=== PATIENT | male | born 1945 | race Caucasian/White ===

== ENCOUNTER → 2017-03-22 | Outpatient (CLI) | payer MEDICARE ==
--- NOTE | 2017-03-22 12:35 | KCIC ---
MRI Lumbar Spine without contrast History: Low back pain with bilateral neurogenic claudication, bilateral hip and leg pain, leg weakness Technique: Multiplanar, multi sequential noncontrast MR imaging was performed of the lumbar spine. Contrast: None Comparison: None Findings: Lumbar vertebral body stature is mostly preserved, Schmorl's nodes greatest at L1-2 and T12-L1. There is grade 1 anterior spondylolisthesis L4-5 and to lesser degree at L5-S1, facet degenerative change at these levels. There is moderate to severe degenerative disc disease at L4-5, mild disc desiccation L2-3, L3-4, L5-S1. There is mild degenerative disc disease at L1-2. Conus terminates at L1-2. There is minimal edema associated with superior L5 Schmorl's node. There are posterior radial and annular tears L4-5. L2-L3: Spinal canal and neural foramina are adequate. L3-L4: There is very minimal disc osteophyte complex. There is a shallow protrusion in the inferior left neural foramen. There is minimal narrowing of the left neural foramen. There is a small left posterolateral annular tear. There is minimal narrowing of the right neural foramen. There is mild buckling of the ligamentum flavum. Spinal canal is adequate. L4-L5: There is fairly severe right greater than left facet degenerative change. There is mild buckling of the ligamentum flavum. There is is mild/moderate narrowing of the far right lateral recess, minimally on the left. There is partial uncovering of the posterior aspect of the disc due to spondylolisthesis with superimposed minimal disc osteophyte complex greater in the inferior right neural foramen. There is severe narrowing of the right neural foramen with contact of the exiting right L4 nerve root. There is mild narrowing of the left neural foramen. L5-S1: Spinal canal is adequate. There is very minimal disc osteophyte complex in the inferior right neural foramen. Neural foramina are overall adequate. Impression: 1. There is grade 1 anterior spondylolisthesis L4-5 and to lesser degree L5-S1, facet degenerative change at these levels. There is moderate to severe degenerative disc disease at L4-5. 2. There is [id number] right and mild left lateral recess stenosis at L4-5. 3. There is severe narrowing of the right L4-5 neural foramen with contact exiting right L4 nerve root, mild narrowing on the left at L4-5 and on the right at L3-4. Electronically signed by: Kong Haji MD (03/22/2017 12:32 PM) [email or web address]
== END | disposition home or self-care (01) ==
LOC: KCIC MRI 11:22
PROVIDERS: ATTEND Internal Medicine
DX: M48.06 Spinal stenosis, lumbar region (principal); M51.36 Other intervertebral disc degeneration, lumbar region; M43.17 Spondylolisthesis, lumbosacral region; M51.46 Schmorl's nodes, lumbar region; R53.1 Weakness
CPT/HCPCS: 72148

== ENCOUNTER → 2018-06-05 | Outpatient (CLI) | payer MEDICARE ==
--- NOTE | 2018-06-05 09:03 | KCIC ---
MRI Brain without contrast History: Essential tremors, left eye and lip drooping, hypertension Technique: Multiplanar, multisequential noncontrast MR imaging was performed of the brain. Comparison: None Findings: There is mild motion. There is no evidence of recent infarct or cytotoxic edema. Ventricular size is proportionate to sulcal spaces, mild generalized supratentorial involutional change somewhat greater of the parietal lobes.There is no significant midline shift, intraaxial mass effect, or focal abnormal extra-axial fluid collection. There is minimal T2 and FLAIR hyperintense signal abnormality of the supratentorial white matter bilaterally. There is preservation of the major intracranial flow-voids at the skull base. The mastoid air cells are aerated. The cerebellar tonsils are normal in location. There is no significant abnormality of the pineal gland or pituitary gland. There has been lens surgery bilaterally. Paranasal sinuses are overall aerated. There is preserved marrow signal of the clivus. There is some fluid associated with the right occipital condylar- C1 articulation, also associated with C1-2 lateral mass articulations left greater than right. Impression: 1. There is no evidence of recent infarct or intracranial mass effect. Minimal T2 and FLAIR hyperintense abnormality of the supratentorial parenchyma is probably due to chronic microvascular ischemic disease in a patient this age is mild supratentorial involutional change somewhat greater of the parietal lobes. 2. There is some fluid associated with the right occipital condylar that C1 articulation and also the C1-C2 lateral mass articulations left greater than right probably reactive/degenerative in etiology. Electronically signed by: Kong Haji MD (06/05/2018 9:00 AM) [email or web address]
== END | disposition home or self-care (01) ==
LOC: KCIC MRI 07:38
PROVIDERS: ATTEND Psychiatry & Neurology Neurology
DX: G25.0 Essential tremor (principal)
CPT/HCPCS: 70551

== ENCOUNTER → 2019-02-18 | Outpatient (CLI) | payer MEDICARE ==
[~2019-02-18] MED LIST: CARB1TAB2 PO; GADOTERATE 5 MMOL/10ML VIAL. IVP ONE; INSU100C SQ; LISI10TA2 PO; MELO15TA23 PO; METF10007 PO; SIMV10TA3 PO; VENL75TA PO
--- NOTE | 2019-02-18 10:39 | KCIC ---
LUMBAR SPINE WO/W CONTRAST History: Back pain. Prior surgery. Bilateral lower extremity pain left greater than right. Technique: Multiplanar, multi sequential MR imaging was performed of the lumbar spine with and without contrast. Contrast: 20 mL Dotarem Comparison: March 22, 2017 Findings: S-shaped curvature of the thoracolumbar spine. Grade 1 anterolisthesis L4 on L5 approximately 6 mm. Normal vertebral body height. No fracture. Minimal degenerative endplate edema L4-L5. No pathologic marrow replacing process. Conus terminates at the normal location. No evidence of nerve root clumping. No pathologic enhancement. L1-L2: No canal or neuroforaminal narrowing. L2-L3: No canal or neuroforaminal narrowing. L3-L4: Small posterior disc bulge. Moderate facet arthropathy. Bilateral facet joint effusions. No canal narrowing. Mild right neuroforaminal narrowing. L4-L5: Grade 1 anterolisthesis. Right hemilaminectomy. Disc uncovering. New central annular fissure. Advanced facet arthropathy. Bilateral facet joint effusions. Bilateral subarticular recess narrowing, unchanged. No canal narrowing. Mild to moderate left and severe right neural foraminal narrowing. L5-S1: Small posterior disc bulge. Advanced facet arthropathy. Bilateral facet joint effusions. No canal or neuroforaminal narrowing. Congenitally unfused posterior elements L5. Impression: 1. Interval right L4-L5 laminectomy. 2. Unchanged L4-L5 grade 1 anterolisthesis with bilateral subarticular recess narrowing and severe right neural foraminal narrowing. Electronically signed by: Benny Crabtree DO (02/18/2019 10:37 AM) [facility]
== END | disposition home or self-care (01) ==
LOC: KCIC MRI 08:33
PROVIDERS: ATTEND Internal Medicine
DX: M48.061 Spinal stenosis, lumbar region without neurogenic claudication (principal); M43.16 Spondylolisthesis, lumbar region; M46.87 Other specified inflammatory spondylopathies, lumbosacral region; M25.48 Effusion, other site; I10 Essential (primary) hypertension; E11.9 Type 2 diabetes mellitus without complications; F17.200 Nicotine dependence, unspecified, uncomplicated; Z88.2 Allergy status to sulfonamides
CPT/HCPCS: 72158; 82565; A9575

== ENCOUNTER 2019-05-08 16:13 | Inpatient (IN) | payer MEDICARE ==
[~2019-05-08] VITALS: Ht 177.8 cm; Wt 91.7 kg
[~2019-05-08 16:13] MED LIST changes: -GADOTERATE 5 MMOL/10ML VIAL. IVP ONE; +SIMV10TA15 PO; -SIMV10TA3 PO
[2019-05-08] MEDS ORDERED: IV NORMAL SALINE 1000ML BAG 1,000 ML IV SCH (16:19)
--- NOTE | 2019-05-08 16:38 | PHYS DOC ---
Adult General Chief Complaint Chief Complaint: GI PROBLEM HPI HPI Patient is a 73-year-old male who presents with acute onset of right sided mid abdominal pain with nausea and vomiting, which started about 1 hour before a rrival. Patient states that he has had numerous episodes of vomiting since onset. He rates pain to be a 10 out of 10. He states that this is absolutely the worst pain he has ever felt. Patient did recently undergo right shoulder surgery. He states that his last bowel movement was earlier today and was normal. He is not aware of any fever. Patient states that nothing is improving his symptoms. He denies any chest pain.[] (LUDA KHAN Jr. DO) Review of Systems Review of Systems Constitutional: Denies fever or chills [] Respiratory: Denies cough or shortness of breath [] Cardiovascular: No additional information not addressed in HPI [] GI: Complains of abdominal pain with nausea and vomiting. Denies diarrhea [] Musculoskeletal: Complains of right sided postoperative shoulder pain [] Integument: Denies rash or skin lesions [] Neurologic: Denies headache, focal weakness or sensory changes [] All other systems were reviewed and found to be within normal limits, except as documented in this note. (LDUA KHAN Jr. DO) Current Medications Current Medications Current Medications Medications (Trade) Dose Ordered Sig/Ventura Start Time Stop Time Status Last Admin Dose Admin Diphenhydramine HCl (Benadryl) 25 mg 1X ONCE 05/08/19 17:00 05/08/19 17:01 DC 05/08/19 16:51 25 MG Fentanyl Citrate (Fentanyl 2ml Vial) 50 mcg PRN Q15MIN PRN 05/08/19 16:30 05/08/19 21:00 05/08/19 19:27 50 MCG Hydromorphone HCl (Dilaudid) 1 mg 1X ONCE 05/08/19 18:30 05/08/19 18:31 DC 05/08/19 18:23 1 MG Info (CONTRAST GIVEN -- Rx MONITORING) 1 each PRN DAILY PRN 05/08/19 17:30 05/10/19 17:29 Iohexol (Omnipaque 350 Mg/ml) 90 ml 1X ONCE 05/08/19 17:30 05/08/19 17:31 DC 05/08/19 17:45 90 ML Metoclopramide HCl (Reglan Vial) 10 mg 1X ONCE 05/08/19 17:00 05/08/19 17:01 DC 05/08/19 16:51 10 MG Piperacillin Sod/ Tazobactam Sod 3.375 gm/Sodium Chloride 50 ml @ 100 mls/hr 1X ONCE 05/08/19 19:00 05/08/19 19:29 DC 05/08/19 19:06 100 MLS/HR Sodium Chloride 1,000 ml @ 1,000 mls/hr 1X ONCE 05/08/19 19:00 05/08/19 19:59 DC 05/08/19 19:06 1,000 MLS/HR (ELLIE COLORADO MD) Allergies Allergies Allergies Coded Allergies Type Severity Reaction Last Updated Verified sulfamethoxazole Allergy Severe Altered Mental Status 05/08/19 Yes trimethoprim Allergy Severe Altered Mental Status 05/08/19 Yes Sulfa (Sulfonamide Antibiotics) Allergy Intermediate 02/18/19 Yes ciprofloxacin Allergy Unknown rash 05/08/19 Yes codeine Allergy Unknown Rash 05/08/19 Yes (ELLIE COLORADO MD) Physical Exam Physical Exam Constitutional: Well developed, well nourished, no acute distress, non-toxic appearance. [] HENT: Normocephalic, atraumatic, bilateral external ears normal, oropharynx moist, no oral exudates, nose normal. [] Eyes: PERRLA, EOMI, conjunctiva normal, no discharge. [] Neck: Normal range of motion, no tenderness, suppler. [] Cardiovascular: Tachycardic rate with regular rhythm[] Lungs & Thorax: Bilateral breath sounds clear to auscultation [] Abdomen: Bowel sounds normal, soft, with moderate tenderness to palpation in the right mid to upper abdomen. [] Skin: Warm, dry, no erythema, no rash. [] Extremities: No tenderness, no cyanosis, no clubbing, ROM in right shoulder due to postop state. [] Neurologic: Alert and oriented X 3, no focal deficits noted. [] (LUDA KHAN Jr. DO) Current Patient Data Vital Signs Vital Signs Date Time Temp Pulse Resp B/P (MAP) Pulse Ox O2 Delivery O2 Flow Rate FiO2 05/08/19 19:00 114 114/64 (81) 92 Nasal Cannula 4.0 05/08/19 18:24 24 05/08/19 16:15 98.3 98.3 (ELLIE COLORADO MD) Lab Values Laboratory Tests Test 05/08/19 16:44 White Blood Count 6.5 x10^3/uL (4.0-11.0) Red Blood Count 4.16 x10^6/uL (4.30-5.70) L Hemoglobin 13.4 g/dL (13.0-17.5) Hematocrit 39.7 % (39.0-53.0) Mean Corpuscular Volume 96 fL (79-100) Mean Corpuscular Hemoglobin 32 pg (25-35) Mean Corpuscular Hemoglobin Concent 34 g/dL (31-37) Red Cell Distribution Width 13.8 % (11.5-14.5) Platelet Count 211 x10^3/uL (140-400) Neutrophils (%) (Auto) 85 % (31-73) H Lymphocytes (%) (Auto) 8 % (24-48) L Monocytes (%) (Auto) 6 % (0-9) Eosinophils (%) (Auto) 0 % (0-3) Basophils (%) (Auto) 1 % (0-3) Neutrophils # (Auto) 5.5 x10^3/uL (1.8-7.7) Lymphocytes # (Auto) 0.6 x10^3/uL (1.0-4.8) L Monocytes # (Auto) 0.4 x10^3/uL (0.0-1.1) Eosinophils # (Auto) 0.0 x10^3/uL (0.0-0.7) Basophils # (Auto) 0.0 x10^3/uL (0.0-0.2) D-Dimer (Zoila) 5.78 ug/mlFEU (0.00-0.50) H Sodium Level 135 mmol/L (136-145) L Potassium Level 5.0 mmol/L (3.5-5.1) Chloride Level 97 mmol/L (98-107) L Carbon Dioxide Level 25 mmol/L (21-32) Anion Gap 13 (6-14) Blood Urea Nitrogen 36 mg/dL (8-26) H Creatinine 1.5 mg/dL (0.7-1.3) H Estimated GFR (Cockcroft-Gault) 45.9 BUN/Creatinine Ratio 24 (6-20) H Glucose Level 298 mg/dL (70-99) H Calcium Level 9.4 mg/dL (8.5-10.1) Total Bilirubin 0.4 mg/dL (0.2-1.0) Aspartate Amino Transferase (AST) 26 U/L (15-37) Alanine Aminotransferase (ALT) 21 U/L (16-63) Alkaline Phosphatase 89 U/L (46-116) Total Protein 7.6 g/dL (6.4-8.2) Albumin 3.4 g/dL (3.4-5.0) Albumin/Globulin Ratio 0.8 (1.0-1.7) L Lipase 128 U/L (73-393) Laboratory Tests 05/08/19 16:44 Laboratory Tests 05/08/19 16:44 (ELLIE COLORADO MD) Lab Values Laboratory Tests Test 05/08/19 16:44 White Blood Count 6.5 x10^3/uL (4.0-11.0) Red Blood Count 4.16 x10^6/uL (4.30-5.70) L Hemoglobin 13.4 g/dL (13.0-17.5) Hematocrit 39.7 % (39.0-53.0) Mean Corpuscular Volume 96 fL (79-100) Mean Corpuscular Hemoglobin 32 pg (25-35) Mean Corpuscular Hemoglobin Concent 34 g/dL (31-37) Red Cell Distribution Width 13.8 % (11.5-14.5) Platelet Count 211 x10^3/uL (140-400) Neutrophils (%) (Auto) 85 % (31-73) H Lymphocytes (%) (Auto) 8 % (24-48) L Monocytes (%) (Auto) 6 % (0-9) Eosinophils (%) (Auto) 0 % (0-3) Basophils (%) (Auto) 1 % (0-3) Neutrophils # (Auto) 5.5 x10^3/uL (1.8-7.7) Lymphocytes # (Auto) 0.6 x10^3/uL (1.0-4.8) L Monocytes # (Auto) 0.4 x10^3/uL (0.0-1.1) Eosinophils # (Auto) 0.0 x10^3/uL (0.0-0.7) Basophils # (Auto) 0.0 x10^3/uL (0.0-0.2) D-Dimer (Zoila) 5.78 ug/mlFEU (0.00-0.50) H Sodium Level 135 mmol/L (136-145) L Potassium Level 5.0 mmol/L (3.5-5.1) Chloride Level 97 mmol/L (98-107) L Carbon Dioxide Level 25 mmol/L (21-32) Anion Gap 13 (6-14) Blood Urea Nitrogen 36 mg/dL (8-26) H Creatinine 1.5 mg/dL (0.7-1.3) H Estimated GFR (Cockcroft-Gault) 45.9 BUN/Creatinine Ratio 24 (6-20) H Glucose Level 298 mg/dL (70-99) H Calcium Level 9.4 mg/dL (8.5-10.1) Total Bilirubin 0.4 mg/dL (0.2-1.0) Aspartate Amino Transferase (AST) 26 U/L (15-37) Alanine Aminotransferase (ALT) 21 U/L (16-63) Alkaline Phosphatase 89 U/L (46-116) Total Protein 7.6 g/dL (6.4-8.2) Albumin 3.4 g/dL (3.4-5.0) Albumin/Globulin Ratio 0.8 (1.0-1.7) L Lipase 128 U/L (73-393) Laboratory Tests 05/08/19 16:44 Laboratory Tests 05/08/19 16:44 (LUDA KHAN Jr., DO) EKG EKG [] (LUDA KHAN Jr., DO) Radiology/Procedures Radiology/Procedures [] (LUDA KHAN Jr., DO) Radiology/Procedures [facility] [address] [place] [address] IMAGING REPORT Signed PATIENT: MORIAH BARRAGAN ACCOUNT: [id number] : 1945 LOCATION: ER AGE: 73 SEX: M EXAM STATUS: REG ER ORD. PHYSICIAN: LUDA KHAN Jr., DO REASON: recent surgery; poss PE vs abdominal embolic event w/ visceral infarct PROCEDURE: CT ANGIO CHEST ABD PELVIS CTA of the chest, abdomen and pelvis with contrast 05/08/2019 CLINICAL HISTORY: Chest, abdominal, and pelvic pain. Recent surgery. Possible embolic event to the abdominal viscera. TECHNIQUE: After the intravenous administration of 90 cc of Omnipaque 350 only, contiguous, 0.625 mm axial sections were obtained through the chest, abdomen and pelvis. Multiplanar 3-D MIP and volume rendered 3-D reconstructions images were obtained. One or more of the following individualized dose reduction techniques were utilized for this study: 1. Automated exposure control. 2. Adjustment of the mA and/or kV according to patient size. 3. Use of iterative reconstruction technique. FINDINGS: Scattered atherosclerotic plaque formation is seen involving the thoracic aortic arch and its branches. The thoracic aortic arch is mildly tortuous but tapers normally. No aneurysm or dissection is seen. The origins of the brachiocephalic, left common carotid and left subclavian arteries from the thoracic aortic arch are patent. The heart is borderline enlarged. No filling defect is seen within the major branches of either pulmonary artery. There is no definite evidence of pulmonary embolism. Minimal dependent subsegmental atelectasis is seen involving both lungs. No area of consolidation is seen. No pneumothorax or pleural effusion is noted. The liver parenchyma has decreased attenuation consistent with fatty infiltration. The spleen, pancreas, and left kidney are within normal limits. A 7 mm nonobstructing calculus is seen within the lower pole of the right kidney. Fullness of both adrenal glands is seen. The gallbladder is contracted. A small amount of free fluid is seen surrounding the liver. Extraluminal collections of air are seen in the janiya hepatis. Small collections of free air are seen. These findings are concerning for a perforated viscus. Air and stool are seen throughout the colon. There is no evidence of bowel obstruction. No abnormal fluid collection is seen to suggest evidence of an abscess. Images through the pelvis demonstrate the urinary bladder distended with urine. Small amount of free fluid is seen within the pelvis. Scattered diverticula are seen involving the sigmoid colon. No inflammatory changes are seen in the adjacent fat. CTA images of the abdominal aorta demonstrate moderate atheromatous/atherosclerotic plaque formation involving the abdominal aorta and its branches. The abdominal aorta tapers normally. A solitary right renal artery is seen which is patent. Two left renal arteries are seen which are patent. The origins of the celiac trunk, superior mesenteric artery and inferior mesenteric artery are patent. Moderate atherosclerotic plaque formation are seen involving the common iliac arteries and their branches. No hemodynamically significant stenosis or area of occlusion is seen. Very mild S-shaped curvature of the thoracolumbar spine is seen. Degenerative changes are seen involving the thoracic and lumbar spine along with both hips. The patient is post right shoulder joint replacement. IMPRESSION: 1. Extraluminal collections of air are seen within the right upper quadrant of the abdomen. A small amount of free air is seen within the upper abdomen. Small amount of ascites is seen within the abdomen and pelvis. These findings are concerning for a bowel perforation. 2. No acute abnormality is seen involving the thoracic or abdominal aorta and their branches. These findings were discussed with Dr. [place] at 1841 hours. FOR INTERNAL CODING PURPOSES RESULT CODE: (C) Electronically signed by: Marv Clark MD (05/08/2019 6:44 PM) [facility] DICTATED and SIGNED BY: MARV CLARK MD DATE: 05/08/191843 (ELLIE COLORADO MD) Course & Med Decision Making Course & Med Decision Making Pertinent Labs and Imaging studies reviewed. (See chart for details) [] (LUDA KHAN Jr., DO) Course & Med Decision Making Patient care transferred to mo by Dr. Khan at 1800. Patient had tachycardia, hypoxia and generalized tenderness of abdomen. CT chest and abdomen and pelvis showed perforated gut with few air fluid in the abdomen. That he wanted on-call surgeon was consulted at 1845 and plans to take patient to OR.Patient requiring admission for further evaluation and treatment. Discussed with Dr. Xie who is in agreement with admission. Discussed findings and plan with patient and family, who acknowledge understanding and agreement. (ELLIE COLORADO MD) Dragon Disclaimer Dragon Disclaimer This electronic medical record was generated, in whole or in part, using a voice recognition dictation system. (LUDA KHAN Jr., DO) Departure Departure Impression: Primary Impression: Perforated intestine, nontraumatic Disposition: 09 ADMITTED INPATIENT (at 1850) Admitting Physician: [facility] (Dr. Xie accepted admission at 1849) (ELLIE COLORADO MD) Condition: GUARDED Referrals: PULS,ILANA L MD (PCP) Critical Care Time Critical care time was 50 minutes exclusive of procedures. (ELLIE COLORADO MD) LUDA KHAN Jr., DO May 08, 2019 16:38 ELLIE COLORADO MD May 08, 2019 19:04
[2019-05-08] MEDS: fentaNYL PF VIAL 100 MCG/2 ML VIAL IV PRN ×4 (16:53→19:27)
[2019-05-08 16:54] LABS: BASO % 1 % (0-3); EOS % 0 % (0-3); HEMATOCRIT 39.7 % (39.0-53.0); HEMOGLOBIN 13.4 g/dL (13.0-17.5); LYMPH # 0.6 x10^3/uL (1.0-4.8); LYMPH % 8 % (24-48); MEAN CORPUSCULAR HEMOGLOBIN 32 pg (25-35); MEAN CORPUSCULAR HGB CONC 34 g/dL (31-37); MEAN CORPUSCULAR VOLUME 96 fL (79-100); MONO # 0.4 x10^3/uL (0.0-1.1); MONO % 6 % (0-9); NEUT # 5.5 x10^3/uL (1.8-7.7); NEUT % 85 % (31-73); PLATELET COUNT 211 x10^3/uL (140-400); RED BLOOD COUNT 4.16 x10^6/uL (4.30-5.70); RED CELL DISTRIBUTION WIDTH 13.8 % (11.5-14.5); WHITE BLOOD COUNT 6.5 x10^3/uL (4.0-11.0)
[2019-05-08] MEDS ORDERED: diphenhydrAMINE 50 MG/ML VIAL IVP ONE (17:00)
[2019-05-08] MEDS ORDERED: METOCLOPRAMIDE HCL 10 MG/2 ML VIAL. IVP ONE (17:00)
[2019-05-08 17:03] LABS: CALCIUM 9.4 mg/dL (8.5-10.1); CREATININE 1.5 mg/dL (0.7-1.3); GFR 45.9
[2019-05-08 17:10] LABS: ALBUMIN 3.4 g/dL (3.4-5.0); ALBUMIN/GLOBULIN RATIO 0.8 (1.0-1.7); TOTAL BILIRUBIN 0.4 mg/dL (0.2-1.0); TOTAL PROTEIN 7.6 g/dL (6.4-8.2)
[2019-05-08] MEDS ORDERED: CONTRAST GIVEN. MC PRN (17:30)
[2019-05-08] MEDS ORDERED: IOHEXOL 350 MG/ML 100 ML VIAL. IV ONE (17:30)
[2019-05-08] MEDS ORDERED: HYDROmorphone 2 MG/ML VIAL IV ONE (18:30)
--- NOTE | 2019-05-08 18:47 | RAD ---
CTA of the chest, abdomen and pelvis with contrast 05/08/2019 CLINICAL HISTORY: Chest, abdominal, and pelvic pain. Recent surgery. Possible embolic event to the abdominal viscera. TECHNIQUE: After the intravenous administration of 90 cc of Omnipaque 350 only, contiguous, 0.625 mm axial sections were obtained through the chest, abdomen and pelvis. Multiplanar 3-D MIP and volume rendered 3-D reconstructions images were obtained. One or more of the following individualized dose reduction techniques were utilized for this study: 1. Automated exposure control. 2. Adjustment of the mA and/or kV according to patient size. 3. Use of iterative reconstruction technique. FINDINGS: Scattered atherosclerotic plaque formation is seen involving the thoracic aortic arch and its branches. The thoracic aortic arch is mildly tortuous but tapers normally. No aneurysm or dissection is seen. The origins of the brachiocephalic, left common carotid and left subclavian arteries from the thoracic aortic arch are patent. The heart is borderline enlarged. No filling defect is seen within the major branches of either pulmonary artery. There is no definite evidence of pulmonary embolism. Minimal dependent subsegmental atelectasis is seen involving both lungs. No area of consolidation is seen. No pneumothorax or pleural effusion is noted. The liver parenchyma has decreased attenuation consistent with fatty infiltration. The spleen, pancreas, and left kidney are within normal limits. A 7 mm nonobstructing calculus is seen within the lower pole of the right kidney. Fullness of both adrenal glands is seen. The gallbladder is contracted. A small amount of free fluid is seen surrounding the liver. Extraluminal collections of air are seen in the janiya hepatis. Small collections of free air are seen. These findings are concerning for a perforated viscus. Air and stool are seen throughout the colon. There is no evidence of bowel obstruction. No abnormal fluid collection is seen to suggest evidence of an abscess. Images through the pelvis demonstrate the urinary bladder distended with urine. Small amount of free fluid is seen within the pelvis. Scattered diverticula are seen involving the sigmoid colon. No inflammatory changes are seen in the adjacent fat. CTA images of the abdominal aorta demonstrate moderate atheromatous/atherosclerotic plaque formation involving the abdominal aorta and its branches. The abdominal aorta tapers normally. A solitary right renal artery is seen which is patent. Two left renal arteries are seen which are patent. The origins of the celiac trunk, superior mesenteric artery and inferior mesenteric artery are patent. Moderate atherosclerotic plaque formation are seen involving the common iliac arteries and their branches. No hemodynamically significant stenosis or area of occlusion is seen. Very mild S-shaped curvature of the thoracolumbar spine is seen. Degenerative changes are seen involving the thoracic and lumbar spine along with both hips. The patient is post right shoulder joint replacement. IMPRESSION: 1. Extraluminal collections of air are seen within the right upper quadrant of the abdomen. A small amount of free air is seen within the upper abdomen. Small amount of ascites is seen within the abdomen and pelvis. These findings are concerning for a bowel perforation. 2. No acute abnormality is seen involving the thoracic or abdominal aorta and their branches. These findings were discussed with Dr. Beaver at 1841 hours. FOR INTERNAL CODING PURPOSES RESULT CODE: (C) Electronically signed by: Marv Clark MD (05/08/2019 6:44 PM) [facility]
[2019-05-08] MEDS ORDERED: IV NORMAL SALINE 1000ML BAG 1,000 ML IV ONE (19:00)
[2019-05-08] MEDS ORDERED: PIPERACILLIN/TAZOBACTAM 3.375 GM in IV NORMAL SALINE 50ML 50 ML IV ONE (19:00)
[2019-05-08] MEDS ORDERED: fentaNYL PF VIAL 100 MCG/2 ML VIAL ONE (19:34)
[2019-05-08] MEDS ORDERED: PROPOFOL 20 ML IV ONE (19:34)
[2019-05-08] MEDS ORDERED: SUCCINYLCHOLINE 200 MG/10 ML VIAL. ONE (19:34)
[2019-05-08] MEDS ORDERED: ONDANSETRON PF 4 MG/2 ML VIAL. ONE (19:34)
[2019-05-08] MEDS ORDERED: LIDOCAINE 2% PF 5 ML VIAL. ONE (19:34)
[2019-05-08] MEDS ORDERED: ROCURONIUM 50 MG/5 ML VIAL. ONE (19:34)
[2019-05-08] MEDS ORDERED: DEXAMETHASONE SOD PHOS 4 MG/ML VIAL ONE (19:34)
[2019-05-08] MEDS ORDERED: INSULIN LISPRO 100 UNIT/ML 3ML VIAL for OP,RR ONLY. SQ PRN (19:45)
[2019-05-08] MEDS ORDERED: ONDANSETRON PF 4 MG/2 ML VIAL. IV PRN (19:45)
[2019-05-08] MEDS ORDERED: fentaNYL PF VIAL 100 MCG/2 ML VIAL IV PRN ×2 (19:45)
[2019-05-08] MEDS ORDERED: PROCHLORPERAZINE 10 MG/2 ML VIAL. IV PRN (19:45)
--- NOTE | 2019-05-08 19:53 | PDOC2 ---
CONSULT Date of Consult Date of Consult DATE: 05/08/19 TIME: 19:44 Reason for Consult Reason for Consult: Abdominal pain and abnormal CT scan Referring Physician Referring Physician: Anne-Marie Identification/Chief Complaint Chief Complaint Abdominal pain nausea vomiting Source Source: Chart review, Patient History of Present Illness Reason for Visit: 73-year-old male came to the emergency department with complaints of severe abdominal pain nausea vomiting started approximately 2 hours ago. Of note he had a right shoulder surgery done 2 days ago at [facility] and has been on nonsteroidal anti-inflammatories for quite some time. He had a normal bowel movement earlier today denies any blood in his emesis. CT scan shows free air in the right upper quadrant of his abdomen with some perihepatic ascites no evidence of small bowel obstruction no evidence of colitis diverticulitis. Past Medical History Cardiovascular: HTN Pulmonary: No pertinent hx GI: Gastritis, Peptic Ulcer disease Heme/Onc: No pertinent hx Hepatobiliary: No pertinent hx Psych: No pertinent hx Musculoskeletal: Other (shoulder pain) Rheumatologic: No pertinent hx Infectious disease: No pertinent hx ENT: No pertinent hx Renal/: Chronic renal insuff Endocrine: Diabetes Dermatology: No pertinent hx Past Surgical History Past Surgical History: Other (right shoulder surgery postop 2 days) Family History Family History: No Significant Social History Quit ALCOHOL: rare Drugs: None Lives: with Family Current Problem List Problem List Problems Medical Problems: (1) Perforated intestine, nontraumatic Status: Acute Current Medications Current Medications Current Medications Fentanyl Citrate (Fentanyl 2ml Vial) 50 mcg PRN Q15MIN PRN IV PAIN GREATER THAN 3/10 Last administered on 05/08/19at 19:27; Start 05/08/19 at 16:30; Stop 05/09/19 at 16:29 Sodium Chloride 1,000 ml @ 250 mls/hr Q4H IV Last administered on 05/08/19at 16:54; Start 05/08/19 at 16:19; Stop 05/08/19 at 20:18 Metoclopramide HCl (Reglan Vial) 10 mg 1X ONCE IVP Last administered on 05/08/19at 16:51; Start 05/08/19 at 17:00; Stop 05/08/19 at 17:01; Status DC Diphenhydramine HCl (Benadryl) 25 mg 1X ONCE IVP Last administered on 05/08/19at 16:51; Start 05/08/19 at 17:00; Stop 05/08/19 at 17:01; Status DC Iohexol (Omnipaque 350 Mg/ml) 90 ml 1X ONCE IV Last administered on 05/08/19at 17:45; Start 05/08/19 at 17:30; Stop 05/08/19 at 17:31; Status DC Info (CONTRAST GIVEN -- Rx MONITORING) 1 each PRN DAILY PRN MC SEE COMMENTS; Start 05/08/19 at 17:30; Stop 05/10/19 at 17:29 Hydromorphone HCl (Dilaudid) 1 mg 1X ONCE IV Last administered on 05/08/19at 18:23; Start 05/08/19 at 18:30; Stop 05/08/19 at 18:31; Status DC Piperacillin Sod/ Tazobactam Sod 3.375 gm/Sodium Chloride 50 ml @ 100 mls/hr 1X ONCE IV Last administered on 05/08/19at 19:06; Start 05/08/19 at 19:00; Stop 05/08/19 at 19:29; Status DC Sodium Chloride 1,000 ml @ 1,000 mls/hr 1X ONCE IV Last administered on 05/08/19at 19:06; Start 05/08/19 at 19:00; Stop 05/08/19 at 19:59 Ondansetron HCl (Zofran) 4 mg STK-MED ONCE .ROUTE ; Start 05/08/19 at 19:34; Stop 05/08/19 at 19:34; Status DC Propofol 20 ml @ As Directed STK-MED ONCE IV ; Start 05/08/19 at 19:34; Stop 05/08/19 at 19:34; Status DC Lidocaine HCl (Lidocaine Pf 2% Vial) 5 ml STK-MED ONCE .ROUTE ; Start 05/08/19 at 19:34; Stop 05/08/19 at 19:34; Status DC Dexamethasone Sodium Phosphate (Decadron) 4 mg STK-MED ONCE .ROUTE ; Start 05/08/19 at 19:34; Stop 05/08/19 at 19:34; Status DC Fentanyl Citrate (Fentanyl 2ml Vial) 100 mcg STK-MED ONCE .ROUTE ; Start 05/08/19 at 19:34; Stop 05/08/19 at 19:34; Status DC Succinylcholine Chloride (Anectine) 200 mg STK-MED ONCE .ROUTE ; Start 05/08/19 at 19:34; Stop 05/08/19 at 19:34; Status DC Rocuronium [place] (Zemuron) 50 mg STK-MED ONCE .ROUTE ; Start 05/08/19 at 19:34; Stop 05/08/19 at 19:34; Status DC Active Scripts Active Reported Venlafaxine Hcl 75 Mg Tablet Unknown Dose PO DAILY Simvastatin 10 Mg Tablet 10 Mg PO DAILY Metformin Hcl 1,000 Mg Tablet 1,000 Mg PO BIDWMEALS Meloxicam 15 Mg Tablet Unknown Dose PO DAILY Lisinopril 10 Mg Tablet Unknown Dose PO DAILY Humalog (Insulin Lispro) 100 Unit/1 Ml Cartridge 100 Unit SQ Sinemet 25-100 Mg Tablet (Carbidopa/Levodopa) 1 Each Tablet 1 Tab PO TID Allergies Allergies: Coded Allergies: sulfamethoxazole (Verified Allergy, Severe, Altered Mental Status , 05/08/19) trimethoprim (Verified Allergy, Severe, Altered Mental Status , 05/08/19) Sulfa (Sulfonamide Antibiotics) (Verified Allergy, Intermediate, 02/18/19) ciprofloxacin (Verified Allergy, Unknown, rash, 05/08/19) codeine (Verified Allergy, Unknown, Rash, 05/08/19) ROS Gastrointestinal: Yes Nausea, Yes Vomiting, Yes Abdominal Pain Musculoskeletal: Yes Joint Swelling, Yes Muscle Pain Physical Exam General: Alert, Oriented X3, Cooperative, moderate distress HEENT: Atraumatic, PERRLA, EOMI Lungs: Clear to auscultation, Normal air movement Heart: Regular rate, No murmurs Abdomen: Soft, Other (moderately distended tender to palpation epigastrium) Extremities: No edema, Other (ecchymosis right shoulder) Skin: No significant lesion Neuro: Normal speech Psych/Mental Status: Mental status NL Vitals VITALS Vital Signs Date Time Temp Pulse Resp B/P (MAP) Pulse Ox O2 Delivery O2 Flow Rate FiO2 05/08/19 19:27 92 Room Air 4.0 05/08/19 18:24 128 24 134/70 (91) 05/08/19 16:15 98.3 98.3 Labs Labs Laboratory Tests Test 05/08/19 16:44 White Blood Count 6.5 x10^3/uL (4.0-11.0) Red Blood Count 4.16 x10^6/uL (4.30-5.70) Hemoglobin 13.4 g/dL (13.0-17.5) Hematocrit 39.7 % (39.0-53.0) Mean Corpuscular Volume 96 fL (79-100) Mean Corpuscular Hemoglobin 32 pg (25-35) Mean Corpuscular Hemoglobin Concent 34 g/dL (31-37) Red Cell Distribution Width 13.8 % (11.5-14.5) Platelet Count 211 x10^3/uL (140-400) Neutrophils (%) (Auto) 85 % (31-73) Lymphocytes (%) (Auto) 8 % (24-48) Monocytes (%) (Auto) 6 % (0-9) Eosinophils (%) (Auto) 0 % (0-3) Basophils (%) (Auto) 1 % (0-3) Neutrophils # (Auto) 5.5 x10^3/uL (1.8-7.7) Lymphocytes # (Auto) 0.6 x10^3/uL (1.0-4.8) Monocytes # (Auto) 0.4 x10^3/uL (0.0-1.1) Eosinophils # (Auto) 0.0 x10^3/uL (0.0-0.7) Basophils # (Auto) 0.0 x10^3/uL (0.0-0.2) D-Dimer (Zoila) 5.78 ug/mlFEU (0.00-0.50) Sodium Level 135 mmol/L (136-145) Potassium Level 5.0 mmol/L (3.5-5.1) Chloride Level 97 mmol/L (98-107) Carbon Dioxide Level 25 mmol/L (21-32) Anion Gap 13 (6-14) Blood Urea Nitrogen 36 mg/dL (8-26) Creatinine 1.5 mg/dL (0.7-1.3) Estimated GFR (Cockcroft-Gault) 45.9 BUN/Creatinine Ratio 24 (6-20) Glucose Level 298 mg/dL (70-99) Calcium Level 9.4 mg/dL (8.5-10.1) Total Bilirubin 0.4 mg/dL (0.2-1.0) Aspartate Amino Transf (AST/SGOT) 26 U/L (15-37) Alanine Aminotransferase (ALT/SGPT) 21 U/L (16-63) Alkaline Phosphatase 89 U/L (46-116) Total Protein 7.6 g/dL (6.4-8.2) Albumin 3.4 g/dL (3.4-5.0) Albumin/Globulin Ratio 0.8 (1.0-1.7) Lipase 128 U/L (73-393) Laboratory Tests Test 05/08/19 16:44 White Blood Count 6.5 x10^3/uL (4.0-11.0) Red Blood Count 4.16 x10^6/uL (4.30-5.70) Hemoglobin 13.4 g/dL (13.0-17.5) Hematocrit 39.7 % (39.0-53.0) Mean Corpuscular Volume 96 fL (79-100) Mean Corpuscular Hemoglobin 32 pg (25-35) Mean Corpuscular Hemoglobin Concent 34 g/dL (31-37) Red Cell Distribution Width 13.8 % (11.5-14.5) Platelet Count 211 x10^3/uL (140-400) Neutrophils (%) (Auto) 85 % (31-73) Lymphocytes (%) (Auto) 8 % (24-48) Monocytes (%) (Auto) 6 % (0-9) Eosinophils (%) (Auto) 0 % (0-3) Basophils (%) (Auto) 1 % (0-3) Neutrophils # (Auto) 5.5 x10^3/uL (1.8-7.7) Lymphocytes # (Auto) 0.6 x10^3/uL (1.0-4.8) Monocytes # (Auto) 0.4 x10^3/uL (0.0-1.1) Eosinophils # (Auto) 0.0 x10^3/uL (0.0-0.7) Basophils # (Auto) 0.0 x10^3/uL (0.0-0.2) D-Dimer (Zoila) 5.78 ug/mlFEU (0.00-0.50) Sodium Level 135 mmol/L (136-145) Potassium Level 5.0 mmol/L (3.5-5.1) Chloride Level 97 mmol/L (98-107) Carbon Dioxide Level 25 mmol/L (21-32) Anion Gap 13 (6-14) Blood Urea Nitrogen 36 mg/dL (8-26) Creatinine 1.5 mg/dL (0.7-1.3) Estimated GFR (Cockcroft-Gault) 45.9 BUN/Creatinine Ratio 24 (6-20) Glucose Level 298 mg/dL (70-99) Calcium Level 9.4 mg/dL (8.5-10.1) Total Bilirubin 0.4 mg/dL (0.2-1.0) Aspartate Amino Transf (AST/SGOT) 26 U/L (15-37) Alanine Aminotransferase (ALT/SGPT) 21 U/L (16-63) Alkaline Phosphatase 89 U/L (46-116) Total Protein 7.6 g/dL (6.4-8.2) Albumin 3.4 g/dL (3.4-5.0) Albumin/Globulin Ratio 0.8 (1.0-1.7) Lipase 128 U/L (73-393) Images Images CT scan as in the history of present illness Assessment/Plan Assessment/Plan Abdominal pain with free air on CT scan suggestive of perforated viscus most li felipa gastric or duodenal ulcer perforation with his history of NSAID use Plan for diagnostic laparoscopy and repair of perforated viscus Diabetes renal insufficiency JAZMINE URIBE MD May 08, 2019 19:53
[2019-05-08] MEDS ORDERED: IV RINGERS,LACTATED 1000ML 1,000 ML IV SCH (20:00)
[2019-05-08] MEDS ORDERED: BUPIVACAINE-EPI 0.25%-1:200000 MPF 30 ML VIAL. INJ ONE (20:00)
[2019-05-08] MEDS ORDERED: KETAMINE HCL IN NACL, ISO-OSM 50 MG/5 ML SYRINGE ONE (20:12)
[2019-05-08] MEDS ORDERED: PHENYLEPHRINE in 0.9% NACL PF 1 MG/10 ML SYRINGE. IV ONE (20:33)
[2019-05-08] MEDS ORDERED: ePHEDrine PF IN SALINE 50 MG/10 ML SYRINGE. IV ONE (20:36)
[2019-05-08] MEDS ORDERED: ALBUMIN HUMAN 5% 500 ML IV ONE (20:55)
[2019-05-08] MEDS ORDERED: NEOSTIGMINE METHYLSULFATE 5 MG/5 ML SYRINGE. ONE (21:27)
[2019-05-08] MEDS ORDERED: GLYCOPYRROLATE 1 MG/5 ML VIAL. ONE (21:27)
[2019-05-08] MEDS ORDERED: EPINEPHrine 1 MG/ML VIAL ONE (21:39)
[2019-05-08] MEDS ORDERED: BUPIVACAINE MPF 0.5% 30 ML VIAL. ONE (21:39)
[2019-05-08] MEDS ORDERED: SEVOFLURANE 61 TO 120 MINUTES. IH ONE (21:44)
--- NOTE | 2019-05-08 21:50 | PDOC4 ---
Operative Note Operative Note Date: 05/08/2019 Preoperative diagnosis: Perforated viscus with free air peritonitis Postoperative diagnosis: Perforated duodenal ulcer Procedure: Diagnostic laparoscopy with open laparotomy and closure of duodenal ulcer and Dawood patch Surgeon: Vick Specimen: Biopsies of duodenal ulcer Dictation: Patient is a 73-year-old male was mated to the hospital through the emergency department with abdominal pain nausea vomiting and a CT scan showing f ree air and free fluid in the right upper quadrant concerning for a perforated viscus. Procedure of diagnostic laparoscopy laparotomy possible small bowel resection was explained to the patient and his in detail risks benefits were also discussed including bleeding infection wound healing issues possibly necessitating further operations. Alternatives to this procedure also discussed with the patient and his who seemed to understand and gave both verbal and written consent to have the procedure performed per patient was taken to the operating room placed in supine position general anesthesia was initiated once patient was sleep and intubated Patrick catheter was placed and NG tube was also placed his abdomen was then prepped and draped usual sterile fashion using ChloraPrep and area just below the umbilicus was injected with quarter percent Marcaine with epinephrine incision was made with a 11 blade scalpel and a varies needle was placed within the abdomen creating pneumoperitoneum at this point a 5 OmegaPort was placed and a 5 moment camera was placed within the abdomen which was inspected was quite a bit of bilious type fluid in the right upper quadrant with some phlegmon in the epigastric area a 5 mm port was then placed in the left mid abdomen and one in the epigastric area the area was inspected and appeared to be a perforation of the duodenum although it was difficult to assess but there was free fluid coming from this area. At this point elected to do open laparotomy with incision was made in the epigastrium this carried down through the subcutaneous tissue using electrocautery right hemostasis down to the fascia fashion was opened with electrocautery. Bookwalter retractor was then placed allowing access to the epigastrium right upper quadrant was noticed that there was a perforated duodenal ulcer just past the pylorus. Biopsy of the edge of the ulcer was taken. The ulcer was then closed with a running 3-0 PDS. Additionally oversewn with 3-0 Vicryl interrupted sutures. There was then covered with Ti sseel and a tongue of omentum was brought up and laid over the repair creating a Dawood patch. The abdomen was then irrigated with copious metastases normal saline and suctioned dry a 19 Frisian MACKENZIE drain was placed through a separate incision in the right upper quadrant this was laid subhepatic out to the right gutter. The fascia was then closed with a running oh looped PDS and the skin was reapproximated with 40 septic or Monocryl Mastisol Steri-Strips and island dressing were applied. Patient was awakened and extubated in the operating room taken to recovery in stable condition all sponge instrument needle counts listed as correct estimated blood loss 30 mL JAZMINE URIBE MD May 08, 2019 21:50
[2019-05-08] MEDS ORDERED: ONDANSETRON PF 4 MG/2 ML VIAL. IVP PRN (22:00)
[2019-05-08 22:45] VITALS: BP 96/43
[2019-05-08 23:00] VITALS: BP 82/50
[2019-05-08] MEDS ORDERED: IV DEXTROSE 5% 250 ML BAG. IV PRN (23:00)
[2019-05-08] MEDS ORDERED: DEXTROSE 50% 25 GM / 50ML DISP.SYRIN. IV PRN (23:00)
[2019-05-08] MEDS ORDERED: INSULIN REGULAR VIAL 150 UNIT in 0.9 % SODIUM CHLORIDE 150ML 150 ML IV PRN ×2 (23:00)
--- NOTE | 2019-05-08 23:00 | NUR ---
Received patient from OR to room 111 with MD ALVA, and RN at bedside at 2245. PACU nurse, Miryam NIEVES, at bedside to recover patient after surgery.
[2019-05-08] MEDS: FLUCONAZOLE 200MG/100ML PREMIX 100 ML IV SCH (23:05)
[2019-05-08 23:15] VITALS: BP 82/56
[2019-05-08 23:30] VITALS: BP 76/50
[2019-05-08 23:45] VITALS: BP 78/48
[2019-05-08] MEDS: IV NORMAL SALINE 1000ML BAG 1,000 ML IV SCH (23:45)
[2019-05-09] VITALS (26 sets, daily range): BP systolic 86–151; BP diastolic 48–93
[2019-05-09] MEDS: PIPERACILLIN/TAZOBACTAM 3.375 GM in IV NORMAL SALINE 50ML 50 ML IV SCH ×4 (00:25→18:27)
[2019-05-09] MEDS ORDERED: ALBUMIN HUMAN 5% 500 ML IV ONE (00:30)
[2019-05-09] MEDS: IV NORMAL SALINE 1000ML BAG 1,000 ML IV SCH ×6 (06:00→21:26)
[2019-05-09 06:02] LABS: BASO % 0 % (0-3); EOS % 0 % (0-3); HEMATOCRIT 31.1 % (39.0-53.0); HEMOGLOBIN 10.3 g/dL (13.0-17.5); LYMPH # 0.3 x10^3/uL (1.0-4.8); LYMPH % 12 % (24-48); MEAN CORPUSCULAR HEMOGLOBIN 32 pg (25-35); MEAN CORPUSCULAR HGB CONC 33 g/dL (31-37); MEAN CORPUSCULAR VOLUME 96 fL (79-100); MONO # 0.3 x10^3/uL (0.0-1.1); MONO % 14 % (0-9); NEUT # 1.9 x10^3/uL (1.8-7.7); NEUT % 74 % (31-73); PLATELET COUNT 138 x10^3/uL (140-400); RED BLOOD COUNT 3.22 x10^6/uL (4.30-5.70); RED CELL DISTRIBUTION WIDTH 13.6 % (11.5-14.5); WHITE BLOOD COUNT 2.5 x10^3/uL (4.0-11.0)
[2019-05-09 06:21] LABS: CALCIUM 8.1 mg/dL (8.5-10.1); CREATININE 2.3 mg/dL (0.7-1.3); POTASSIUM 5.2 mmol/L (3.5-5.1)
--- NOTE | 2019-05-09 06:30 | NUR ---
Rested well overnight. Denies pain each time asked. Creat up this am to 2.3. ANESTHESIOLOGY CRNA informed of change. She will talk to . MACKENZIE with moderate output. UO low, but remains 30ml/hr. Remains on 50% VM with O2 sat 92-93%. Coughing well. VS remain stable. No pressors started overnight.
--- NOTE | 2019-05-09 07:52 | EKG ---
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
--- NOTE | 2019-05-09 09:08 | PDOC1 ---
History and Physical Date of Admission Date of Admission DATE: 05/09/19 TIME: 09:07 Identification/Chief Complaint Chief Complaint 73-year-old male who presents with acute onset of right sided mid abdominal pain with nausea and vomiting, which started about 1 hour before arrival. Patient states that he has had numerous episodes of vomiting since onset.//has been on NSAID's for quite some time. Past Medical History Past Medical History Past Medical History Cardiovascular: HTN Pulmonary: No pertinent hx GI: Gastritis, Peptic Ulcer disease Heme/Onc: No pertinent hx Hepatobiliary: No pertinent hx Psych: No pertinent hx Musculoskeletal: Other (shoulder pain) Rheumatologic: No pertinent hx Infectious disease: No pertinent hx ENT: No pertinent hx Renal/: Chronic renal insuff Endocrine: Diabetes Dermatology: No pertinent hx Past Surgical History Past Surgical History: Other (right shoulder surgery postop 2 days) Family History Family History: No Significant Social History Quit ALCOHOL: rare Drugs: None Lives: with Family Cardiovascular: HTN Pulmonary: No pertinent hx GI: Gastritis, Peptic Ulcer disease Heme/Onc: No pertinent hx Hepatobiliary: No pertinent hx Psych: No pertinent hx Musculoskeletal: Other (shoulder pain) Rheumatologic: No pertinent hx Infectious disease: No pertinent hx ENT: No pertinent hx Renal/: Chronic renal insuff Endocrine: Diabetes Dermatology: No pertinent hx Past Surgical History Past Surgical History: Other (right shoulder surgery postop 2 days) Family History Family History: No Significant Social History Smoke: <1 pack per day ALCOHOL: rare Drugs: None Current Problem List Problem List Problems Medical Problems: (1) Perforated intestine, nontraumatic Status: Acute Current Medications Current Medications Current Medications Fentanyl Citrate (Fentanyl 2ml Vial) 50 mcg PRN Q15MIN PRN IV PAIN GREATER THAN 3/10 Last administered on 05/08/19at 19:27; Start 05/08/19 at 16:30; Stop 05/08/19 at 21:00; Status DC Sodium Chloride 1,000 ml @ 250 mls/hr Q4H IV Last administered on 05/08/19at 16:54; Start 05/08/19 at 16:19; Stop 05/08/19 at 20:18; Status DC Metoclopramide HCl (Reglan Vial) 10 mg 1X ONCE IVP Last administered on 05/08/19at 16:51; Start 05/08/19 at 17:00; Stop 05/08/19 at 17:01; Status DC Diphenhydramine HCl (Benadryl) 25 mg 1X ONCE IVP Last administered on 05/08/19at 16:51; Start 05/08/19 at 17:00; Stop 05/08/19 at 17:01; Status DC Iohexol (Omnipaque 350 Mg/ml) 90 ml 1X ONCE IV Last administered on 05/08/19at 17:45; Start 05/08/19 at 17:30; Stop 05/08/19 at 17:31; Status DC Info (CONTRAST GIVEN -- Rx MONITORING) 1 each PRN DAILY PRN MC SEE COMMENTS; Start 05/08/19 at 17:30; Stop 05/10/19 at 17:29 Hydromorphone HCl (Dilaudid) 1 mg 1X ONCE IV Last administered on 05/08/19at 18:23; Start 05/08/19 at 18:30; Stop 05/08/19 at 18:31; Status DC Piperacillin Sod/ Tazobactam Sod 3.375 gm/Sodium Chloride 50 ml @ 100 mls/hr 1X ONCE IV Last administered on 05/08/19at 19:06; Start 05/08/19 at 19:00; Stop 05/08/19 at 19:29; Status DC Sodium Chloride 1,000 ml @ 1,000 mls/hr 1X ONCE IV Last administered on 05/08/19at 19:06; Start 05/08/19 at 19:00; Stop 05/08/19 at 19:59; Status DC Ondansetron HCl (Zofran) 4 mg STK-MED ONCE .ROUTE ; Start 05/08/19 at 19:34; Stop 05/08/19 at 19:34; Status DC Propofol 20 ml @ As Directed STK-MED ONCE IV ; Start 05/08/19 at 19:34; Stop 05/08/19 at 19:34; Status DC Lidocaine HCl (Lidocaine Pf 2% Vial) 5 ml STK-MED ONCE .ROUTE ; Start 05/08/19 at 19:34; Stop 05/08/19 at 19:34; Status DC Dexamethasone Sodium Phosphate (Decadron) 4 mg STK-MED ONCE .ROUTE ; Start 05/08/19 at 19:34; Stop 05/08/19 at 19:34; Status DC Fentanyl Citrate (Fentanyl 2ml Vial) 100 mcg STK-MED ONCE .ROUTE ; Start 05/08/19 at 19:34; Stop 05/08/19 at 19:34; Status DC Succinylcholine Chloride (Anectine) 200 mg STK-MED ONCE .ROUTE ; Start 05/08/19 at 19:34; Stop 05/08/19 at 19:34; Status DC Rocuronium [place] (Zemuron) 50 mg STK-MED ONCE .ROUTE ; Start 05/08/19 at 19:34; Stop 05/08/19 at 19:34; Status DC Ondansetron HCl (Zofran) 4 mg PRN Q6HRS PRN IV NAUSEA/VOMITING; Start 05/08/19 at 19:45; Stop 05/08/19 at 23:59; Status DC Fentanyl Citrate (Fentanyl 2ml Vial) 25 mcg PRN Q5MIN PRN IV MILD PAIN 1-3; Start 05/08/19 at 19:45; Stop 05/08/19 at 23:59; Status DC Fentanyl Citrate (Fentanyl 2ml Vial) 50 mcg PRN Q5MIN PRN IV MODERATE TO SEVERE PAIN; Start 05/08/19 at 19:45; Stop 05/08/19 at 23:59; Status DC Ringer's Solution 1,000 ml @ 30 mls/hr Q24H IV Last administered on 05/08/19at 23:06; Start 05/08/19 at 20:00; Stop 05/09/19 at 01:00; Status DC Prochlorperazine Edisylate (Compazine) 5 mg PACU PRN PRN IV NAUSEA, MRX1; Start 05/08/19 at 19:45; Stop 05/08/19 at 23:59; Status DC Insulin Human Lispro (HumaLOG VIAL for OP,RR ONLY) 0-10 units PRN Q1HR PRN SQ PER PROTOCOL; Start 05/08/19 at 19:45; Stop 05/08/19 at 23:59; Status DC Bupivacaine HCl/ Epinephrine Bitart (Sensorcaine-Epi 0.25%-1:012153 Mpf) 30 ml 1X ONCE INJ Last administered on 05/08/19at 20:32; Start 05/08/19 at 20:00; Stop 05/08/19 at 20:01; Status DC Ketamine HCl (Ketamine) 50 mg STK-MED ONCE .ROUTE ; Start 05/08/19 at 20:12; Stop 05/08/19 at 20:12; Status DC Phenylephrine HCl (PHENYLEPHRINE in 0.9% NACL PF) 1 mg STK-MED ONCE IV ; Start 05/08/19 at 20:33; Stop 05/08/19 at 20:33; Status DC Ephedrine Sulfate (ePHEDrine PF IN SALINE SYRINGE) 50 mg STK-MED ONCE IV ; Start 05/08/19 at 20:36; Stop 05/08/19 at 20:36; Status DC Albumin Human 500 ml @ As Directed STK-MED ONCE IV ; Start 05/08/19 at 20:55; Stop 05/08/19 at 20:55; Status DC Glycopyrrolate (Robinul) 1 mg STK-MED ONCE .ROUTE ; Start 05/08/19 at 21:27; Stop 05/08/19 at 21:27; Status DC Neostigmine Methylsulfate (Neostigmine Methylsulfate) 5 mg STK-MED ONCE .ROUTE ; Start 05/08/19 at 21:27; Stop 05/08/19 at 21:27; Status DC Bupivacaine HCl (Sensorcaine Mpf 0.5%) 30 ml STK-MED ONCE .ROUTE ; Start 05/08/19 at 21:39; Stop 05/08/19 at 21:39; Status DC Epinephrine HCl (Adrenalin) 1 mg STK-MED ONCE .ROUTE ; Start 05/08/19 at 21:39; Stop 05/08/19 at 21:39; Status DC Sevoflurane (Ultane) 60 ml STK-MED ONCE IH ; Start 05/08/19 at 21:44; Stop 05/08/19 at 21:44; Status DC Sodium Chloride 1,000 ml @ 125 mls/hr Q8H IV Last administered on 05/08/19at 23:45; Start 05/08/19 at 22:00 Ondansetron HCl (Zofran) 4 mg PRN Q6HRS PRN IVP NAUSEA/VOMITING 1ST CHOICE; Start 05/08/19 at 22:00 Fluconazole/ Sodium Chloride 100 ml @ 100 mls/hr Q24H IV Last administered on 05/08/19at 23:05; Start 05/08/19 at 22:00 Hydromorphone HCl (Dilaudid) 1 mg PRN Q4HRS PRN IV SEVERE PAIN 7-10; Start 05/08/19 at 22:00 Piperacillin Sod/ Tazobactam Sod 3.375 gm/Sodium Chloride 50 ml @ 100 mls/hr Q6HRS IV Last administered on 05/09/19at 06:08; Start 05/09/19 at 00:00 Pantoprazole Sodium (PROTONIX VIAL for IV PUSH) 40 mg DAILY IVP ; Start 05/09/19 at 09:00 Insulin Human Regular 150 unit/ Sodium Chloride 151.5 ml @ 0 mls/hr CONT PRN IV SEE I/O RECORD; Start 05/08/19 at 23:00; Status UNV Insulin Human Regular 150 unit/ Sodium Chloride 151.5 ml @ 0 mls/hr CONT PRN IV SEE I/O RECORD Last administered on 05/08/19at 23:03; Start 05/08/19 at 23:00 Dextrose (Dextrose 50%-Water Syringe) 12.5 gm PRN Q15MIN PRN IV LOW BLOOD SUGAR; Start 05/08/19 at 23:00 Dextrose 250 ml PRN Q15MIN PRN IV LOW BLOOD SUGAR; Start 05/08/19 at 23:00 Albumin Human 500 ml @ 250 mls/hr 1X ONCE IV Last administered on 05/09/19at 00:10; Start 05/09/19 at 00:30; Stop 05/09/19 at 02:29; Status DC Norepinephrine Bitartrate 250 ml @ 20.156 mls/ hr CONT PRN IV SEE I/O RECORD; Start 05/09/19 at 00:00 Dextrose/Sodium Chloride 1,000 ml @ 250 mls/hr Q4H IV ; Start 05/09/19 at 08:45 Active Scripts Active Reported Venlafaxine Hcl 75 Mg Tablet Unknown Dose PO DAILY Simvastatin 10 Mg Tablet 10 Mg PO DAILY Metformin Hcl 1,000 Mg Tablet 1,000 Mg PO BIDWMEALS Meloxicam 15 Mg Tablet Unknown Dose PO DAILY Lisinopril 10 Mg Tablet Unknown Dose PO DAILY Humalog (Insulin Lispro) 100 Unit/1 Ml Cartridge 100 Unit SQ Sinemet 25-100 Mg Tablet (Carbidopa/Levodopa) 1 Each Tablet 1 Tab PO TID Allergies Allergies: Coded Allergies: sulfamethoxazole (Verified Allergy, Severe, Altered Mental Status , 05/08/19) trimethoprim (Verified Allergy, Severe, Altered Mental Status , 05/08/19) Sulfa (Sulfonamide Antibiotics) (Verified Allergy, Intermediate, 05/08/19) ciprofloxacin (Verified Allergy, Intermediate, rash, 05/08/19) codeine (Verified Allergy, Intermediate, Rash, 05/08/19) ROS Review of System in er , Constitutional: Denies fever or chills [] Respiratory: Denies cough or shortness of breath [] Cardiovascular: No additional information not addressed in HPI [] GI: Complains of abdominal pain with nausea and vomiting. Denies diarrhea [] Musculoskeletal: Complains of right sided postoperative shoulder pain [] Integument: Denies rash or skin lesions [] Neurologic: Denies headache, focal weakness or sensory changes [] 14 pt systems were reviewed and found to be within normal limits, except as documented General: YES: Fatigue Hematological and Lymphatic: No: Bleeding Problems, Blood Clots, Blood Transfusions, Brusing, Night Sweats, Pallor, Swollen Lymph Nodes, Other Gastrointestinal: Yes Abdominal Pain Physical Exam Physical Exam HENT: Normocephalic, atraumatic, bilateral external ears normal, oropharynx moist, no oral exudates, nose normal. [] Eyes: PERRLA, EOMI, conjunctiva normal, no discharge. [] Neck: Normal range of motion, no tenderness, suppler. [] Cardiovascular: Tachycardic rate with regular rhythm[] Lungs & Thorax: Bilateral breath sounds clear to auscultation [] General: Alert, Oriented X3, Cooperative, mild distress HEENT: EOMI Heart: no thrills Breasts: Not examined Abdomen: Other ( MACKENZIE drain intact with bilious blood-tinged drainage)) Rectal Exam: not examined PELVIC: Examination not indicated Extremities: No cyanosis Neuro: Cranial nerves 3-12 NL Vitals Vitals Vital Signs Date Time Temp Pulse Resp B/P (MAP) Pulse Ox O2 Delivery O2 Flow Rate FiO2 05/09/19 06:00 93 18 90/53 (65) 93 Venturi Mask 05/09/19 04:00 15.0 05/09/19 04:00 100.0 100.0 Labs Labs Laboratory Tests Test 05/08/19 16:44 05/08/19 20:43 05/08/19 22:48 05/08/19 23:53 White Blood Count 6.5 x10^3/uL (4.0-11.0) Red Blood Count 4.16 x10^6/uL (4.30-5.70) Hemoglobin 13.4 g/dL (13.0-17.5) Hematocrit 39.7 % (39.0-53.0) Mean Corpuscular Volume 96 fL (79-100) Mean Corpuscular Hemoglobin 32 pg (25-35) Mean Corpuscular Hemoglobin Concent 34 g/dL (31-37) Red Cell Distribution Width 13.8 % (11.5-14.5) Platelet Count 211 x10^3/uL (140-400) Neutrophils (%) (Auto) 85 % (31-73) Lymphocytes (%) (Auto) 8 % (24-48) Monocytes (%) (Auto) 6 % (0-9) Eosinophils (%) (Auto) 0 % (0-3) Basophils (%) (Auto) 1 % (0-3) Neutrophils # (Auto) 5.5 x10^3/uL (1.8-7.7) Lymphocytes # (Auto) 0.6 x10^3/uL (1.0-4.8) Monocytes # (Auto) 0.4 x10^3/uL (0.0-1.1) Eosinophils # (Auto) 0.0 x10^3/uL (0.0-0.7) Basophils # (Auto) 0.0 x10^3/uL (0.0-0.2) D-Dimer (Zoila) 5.78 ug/mlFEU (0.00-0.50) Sodium Level 135 mmol/L (136-145) Potassium Level 5.0 mmol/L (3.5-5.1) Chloride Level 97 mmol/L (98-107) Carbon Dioxide Level 25 mmol/L (21-32) Anion Gap 13 (6-14) Blood Urea Nitrogen 36 mg/dL (8-26) Creatinine 1.5 mg/dL (0.7-1.3) Estimated GFR (Cockcroft-Gault) 45.9 BUN/Creatinine Ratio 24 (6-20) Glucose Level 298 mg/dL (70-99) Calcium Level 9.4 mg/dL (8.5-10.1) Total Bilirubin 0.4 mg/dL (0.2-1.0) Aspartate Amino Transf (AST/SGOT) 26 U/L (15-37) Alanine Aminotransferase (ALT/SGPT) 21 U/L (16-63) Alkaline Phosphatase 89 U/L (46-116) Total Protein 7.6 g/dL (6.4-8.2) Albumin 3.4 g/dL (3.4-5.0) Albumin/Globulin Ratio 0.8 (1.0-1.7) Lipase 128 U/L (73-393) Glucose (Fingerstick) 295 mg/dL (70-99) 312 mg/dL (70-99) 274 mg/dL (70-99) Test 05/09/19 00:52 05/09/19 01:53 05/09/19 02:55 05/09/19 03:53 Glucose (Fingerstick) 254 mg/dL (70-99) 226 mg/dL (70-99) 167 mg/dL (70-99) 148 mg/dL (70-99) Test 05/09/19 04:54 05/09/19 05:35 05/09/19 05:57 05/09/19 06:59 Glucose (Fingerstick) 123 mg/dL (70-99) 119 mg/dL (70-99) 118 mg/dL (70-99) White Blood Count 2.5 x10^3/uL (4.0-11.0) Red Blood Count 3.22 x10^6/uL (4.30-5.70) Hemoglobin 10.3 g/dL (13.0-17.5) Hematocrit 31.1 % (39.0-53.0) Mean Corpuscular Volume 96 fL (79-100) Mean Corpuscular Hemoglobin 32 pg (25-35) Mean Corpuscular Hemoglobin Concent 33 g/dL (31-37) Red Cell Distribution Width 13.6 % (11.5-14.5) Platelet Count 138 x10^3/uL (140-400) Neutrophils (%) (Auto) 74 % (31-73) Lymphocytes (%) (Auto) 12 % (24-48) Monocytes (%) (Auto) 14 % (0-9) Eosinophils (%) (Auto) 0 % (0-3) Basophils (%) (Auto) 0 % (0-3) Neutrophils # (Auto) 1.9 x10^3/uL (1.8-7.7) Lymphocytes # (Auto) 0.3 x10^3/uL (1.0-4.8) Monocytes # (Auto) 0.3 x10^3/uL (0.0-1.1) Eosinophils # (Auto) 0.0 x10^3/uL (0.0-0.7) Basophils # (Auto) 0.0 x10^3/uL (0.0-0.2) Sodium Level 141 mmol/L (136-145) Potassium Level 5.2 mmol/L (3.5-5.1) Chloride Level 106 mmol/L (98-107) Carbon Dioxide Level 25 mmol/L (21-32) Anion Gap 10 (6-14) Blood Urea Nitrogen 44 mg/dL (8-26) Creatinine 2.3 mg/dL (0.7-1.3) Estimated GFR (Cockcroft-Gault) 28.0 Glucose Level 129 mg/dL (70-99) Calcium Level 8.1 mg/dL (8.5-10.1) Laboratory Tests Test 05/08/19 16:44 05/08/19 20:43 05/08/19 22:48 05/08/19 23:53 White Blood Count 6.5 x10^3/uL (4.0-11.0) Red Blood Count 4.16 x10^6/uL (4.30-5.70) Hemoglobin 13.4 g/dL (13.0-17.5) Hematocrit 39.7 % (39.0-53.0) Mean Corpuscular Volume 96 fL (79-100) Mean Corpuscular Hemoglobin 32 pg (25-35) Mean Corpuscular Hemoglobin Concent 34 g/dL (31-37) Red Cell Distribution Width 13.8 % (11.5-14.5) Platelet Count 211 x10^3/uL (140-400) Neutrophils (%) (Auto) 85 % (31-73) Lymphocytes (%) (Auto) 8 % (24-48) Monocytes (%) (Auto) 6 % (0-9) Eosinophils (%) (Auto) 0 % (0-3) Basophils (%) (Auto) 1 % (0-3) Neutrophils # (Auto) 5.5 x10^3/uL (1.8-7.7) Lymphocytes # (Auto) 0.6 x10^3/uL (1.0-4.8) Monocytes # (Auto) 0.4 x10^3/uL (0.0-1.1) Eosinophils # (Auto) 0.0 x10^3/uL (0.0-0.7) Basophils # (Auto) 0.0 x10^3/uL (0.0-0.2) D-Dimer (Zoila) 5.78 ug/mlFEU (0.00-0.50) Sodium Level 135 mmol/L (136-145) Potassium Level 5.0 mmol/L (3.5-5.1) Chloride Level 97 mmol/L (98-107) Carbon Dioxide Level 25 mmol/L (21-32) Anion Gap 13 (6-14) Blood Urea Nitrogen 36 mg/dL (8-26) Creatinine 1.5 mg/dL (0.7-1.3) Estimated GFR (Cockcroft-Gault) 45.9 BUN/Creatinine Ratio 24 (6-20) Glucose Level 298 mg/dL (70-99) Calcium Level 9.4 mg/dL (8.5-10.1) Total Bilirubin 0.4 mg/dL (0.2-1.0) Aspartate Amino Transf (AST/SGOT) 26 U/L (15-37) Alanine Aminotransferase (ALT/SGPT) 21 U/L (16-63) Alkaline Phosphatase 89 U/L (46-116) Total Protein 7.6 g/dL (6.4-8.2) Albumin 3.4 g/dL (3.4-5.0) Albumin/Globulin Ratio 0.8 (1.0-1.7) Lipase 128 U/L (73-393) Glucose (Fingerstick) 295 mg/dL (70-99) 312 mg/dL (70-99) 274 mg/dL (70-99) Test 05/09/19 00:52 05/09/19 01:53 05/09/19 02:55 05/09/19 03:53 Glucose (Fingerstick) 254 mg/dL (70-99) 226 mg/dL (70-99) 167 mg/dL (70-99) 148 mg/dL (70-99) Test 05/09/19 04:54 05/09/19 05:35 05/09/19 05:57 05/09/19 06:59 Glucose (Fingerstick) 123 mg/dL (70-99) 119 mg/dL (70-99) 118 mg/dL (70-99) White Blood Count 2.5 x10^3/uL (4.0-11.0) Red Blood Count 3.22 x10^6/uL (4.30-5.70) Hemoglobin 10.3 g/dL (13.0-17.5) Hematocrit 31.1 % (39.0-53.0) Mean Corpuscular Volume 96 fL (79-100) Mean Corpuscular Hemoglobin 32 pg (25-35) Mean Corpuscular Hemoglobin Concent 33 g/dL (31-37) Red Cell Distribution Width 13.6 % (11.5-14.5) Platelet Count 138 x10^3/uL (140-400) Neutrophils (%) (Auto) 74 % (31-73) Lymphocytes (%) (Auto) 12 % (24-48) Monocytes (%) (Auto) 14 % (0-9) Eosinophils (%) (Auto) 0 % (0-3) Basophils (%) (Auto) 0 % (0-3) Neutrophils # (Auto) 1.9 x10^3/uL (1.8-7.7) Lymphocytes # (Auto) 0.3 x10^3/uL (1.0-4.8) Monocytes # (Auto) 0.3 x10^3/uL (0.0-1.1) Eosinophils # (Auto) 0.0 x10^3/uL (0.0-0.7) Basophils # (Auto) 0.0 x10^3/uL (0.0-0.2) Sodium Level 141 mmol/L (136-145) Potassium Level 5.2 mmol/L (3.5-5.1) Chloride Level 106 mmol/L (98-107) Carbon Dioxide Level 25 mmol/L (21-32) Anion Gap 10 (6-14) Blood Urea Nitrogen 44 mg/dL (8-26) Creatinine 2.3 mg/dL (0.7-1.3) Estimated GFR (Cockcroft-Gault) 28.0 Glucose Level 129 mg/dL (70-99) Calcium Level 8.1 mg/dL (8.5-10.1) Images Images CTA of the chest, abdomen and pelvis with contrast 05/08/2019 CLINICAL HISTORY: Chest, abdominal, and pelvic pain. Recent surgery. Possible embolic event to the abdominal viscera. TECHNIQUE: After the intravenous administration of 90 cc of Omnipaque 350 only, contiguous, 0.625 mm axial sections were obtained through the chest, abdomen and pelvis. Multiplanar 3-D MIP and volume rendered 3-D reconstructions images were obtained. One or more of the following individualized dose reduction techniques were utilized for this study: 1. Automated exposure control. 2. Adjustment of the mA and/or kV according to patient size. 3. Use of iterative reconstruction technique. FINDINGS: Scattered atherosclerotic plaque formation is seen involving the thoracic aortic arch and its branches. The thoracic aortic arch is mildly tortuous but tapers normally. No aneurysm or dissection is seen. The origins of the brachiocephalic, left common carotid and left subclavian arteries from the thoracic aortic arch are patent. The heart is borderline enlarged. No filling defect is seen within the major branches of either pulmonary artery. There is no definite evidence of pulmonary embolism. Minimal dependent subsegmental atelectasis is seen involving both lungs. No area of consolidation is seen. No pneumothorax or pleural effusion is noted. The liver parenchyma has decreased attenuation consistent with fatty infiltration. The spleen, pancreas, and left kidney are within normal limits. A 7 mm nonobstructing calculus is seen within the lower pole of the right kidney. Fullness of both adrenal glands is seen. The gallbladder is contracted. A small amount of free fluid is seen surrounding the liver. Extraluminal collections of air are seen in the janiya hepatis. Small collections of free air are seen. These findings are concerning for a perforated viscus. Air and stool are seen throughout the colon. There is no evidence of bowel obstruction. No abnormal fluid collection is seen to suggest evidence of an abscess. Images through the pelvis demonstrate the urinary bladder distended with urine. Small amount of free fluid is seen within the pelvis. Scattered diverticula are seen involving the sigmoid colon. No inflammatory changes are seen in the adjacent fat. CTA images of the abdominal aorta demonstrate moderate atheromatous/atherosclerotic plaque formation involving the abdominal aorta and its branches. The abdominal aorta tapers normally. A solitary right renal artery is seen which is patent. Two left renal arteries are seen which are patent. The origins of the celiac trunk, superior mesenteric artery and inferior mesenteric artery are patent. Moderate atherosclerotic plaque formation are seen involving the common iliac arteries and their branches. No hemodynamically significant stenosis or area of occlusion is seen. Very mild S-shaped curvature of the thoracolumbar spine is seen. Degenerative changes are seen involving the thoracic and lumbar spine along with both hips. The patient is post right shoulder joint replacement. IMPRESSION: 1. Extraluminal collections of air are seen within the right upper quadrant of the abdomen. A small amount of free air is seen within the upper abdomen. Small amount of ascites is seen within the abdomen and pelvis. These findings are concerning for a bowel perforation. 2. No acute abnormality is seen involving the thoracic or abdominal aorta and their branches. These findings were discussed with Dr. Beaver at 1841 hours. FOR INTERNAL CODING PURPOSES RESULT CODE: (C) Electronically signed by: Marv Ruff MD (05/08/2019 6:44 PM) [facility] DICTATED and SIGNED BY: MARV RUFF MD DATE: 05/08/191843 VTE Prophylaxis Ordered VTE Prophylaxis Devices: Contraindicated VTE Pharmacological Prophylaxi: Contraindicated Assessment/Plan Assessment/Plan impression RESPIRATORY FAILURE SEVERE SEPSIS severe protein-caloric malnutrition Perforated viscus with free air peritonitis //Perforated duodenal ulcer Extraluminal collections of air are seen within the right upper quadrant of the abdomen. A small amount of free air is seen within the upper abdomen. Small amount of ascites is seen within the abdomen and pelvis. /// bowel perforation.// PERITONITIS plan ADMIT ICU Consult gen surgery nephrology consult PULM CONSULT ID CONSULT sepsis protocol IV ANTIBIOTICS, iv zosyn BLOOD CULTURE VENTURI MASK SUPPORT BRONCH per pulm Diagnostic laparoscopy with open laparotomy and closure of duodenal ulcer and Dawood patch 10-24 36 MIN CC TIME JAZMINE COLLINS MD May 09, 2019 09:08
--- NOTE | 2019-05-09 09:12 | RAD ---
PORTABLE CHEST 1V History: Postop. Comparison: CT May 08, 2019. Findings: Enteric tube with tip projecting over the proximal stomach. No consolidation or pleural effusion. Normal heart size. Right shoulder arthroplasty. Low lung volumes. Advanced left glenohumeral DJD. Impression: 1. No acute cardiopulmonary process. 2. Enteric tube with tip projecting over the proximal stomach. Electronically signed by: Benny Crabtree DO (05/09/2019 9:09 AM) [id number]
--- NOTE | 2019-05-09 09:44 | PDOC ---
SURGICAL PROGRESS NOTE Subjective Patient feeling better today a lot less pain than when he came into the emergency department. Says he is hungry would like to eat. Vital Signs Vital Signs Date Time Temp Pulse Resp B/P (MAP) Pulse Ox O2 Delivery O2 Flow Rate FiO2 05/09/19 06:00 93 18 90/53 (65) 93 Venturi Mask 05/09/19 04:00 15.0 05/09/19 04:00 100.0 100.0 I&O Intake and Output 05/09/19 06:59 Intake Total 4514 ml Output Total 745 ml Balance 3769 ml Intake IV Total 4514 ml Output Urine Total 460 ml Gastric Drainage Total 25 ml Drainage Total 230 ml Estimated Blood Loss 30 ml PATIENT HAS A FENTON: Yes General: Alert, Oriented X3, Cooperative, mild distress Lungs: Other (decreased breath sounds bilaterally at the bases) Abdomen: Soft, Other (incisional tenderness MACKENZIE drain intact with bilious blood- tinged drainage) Labs Laboratory Tests Test 05/08/19 16:44 05/08/19 20:43 05/08/19 22:48 05/08/19 23:53 White Blood Count 6.5 x10^3/uL (4.0-11.0) Red Blood Count 4.16 x10^6/uL (4.30-5.70) Hemoglobin 13.4 g/dL (13.0-17.5) Hematocrit 39.7 % (39.0-53.0) Mean Corpuscular Volume 96 fL (79-100) Mean Corpuscular Hemoglobin 32 pg (25-35) Mean Corpuscular Hemoglobin Concent 34 g/dL (31-37) Red Cell Distribution Width 13.8 % (11.5-14.5) Platelet Count 211 x10^3/uL (140-400) Neutrophils (%) (Auto) 85 % (31-73) Lymphocytes (%) (Auto) 8 % (24-48) Monocytes (%) (Auto) 6 % (0-9) Eosinophils (%) (Auto) 0 % (0-3) Basophils (%) (Auto) 1 % (0-3) Neutrophils # (Auto) 5.5 x10^3/uL (1.8-7.7) Lymphocytes # (Auto) 0.6 x10^3/uL (1.0-4.8) Monocytes # (Auto) 0.4 x10^3/uL (0.0-1.1) Eosinophils # (Auto) 0.0 x10^3/uL (0.0-0.7) Basophils # (Auto) 0.0 x10^3/uL (0.0-0.2) D-Dimer (Zoila) 5.78 ug/mlFEU (0.00-0.50) Sodium Level 135 mmol/L (136-145) Potassium Level 5.0 mmol/L (3.5-5.1) Chloride Level 97 mmol/L (98-107) Carbon Dioxide Level 25 mmol/L (21-32) Anion Gap 13 (6-14) Blood Urea Nitrogen 36 mg/dL (8-26) Creatinine 1.5 mg/dL (0.7-1.3) Estimated GFR (Cockcroft-Gault) 45.9 BUN/Creatinine Ratio 24 (6-20) Glucose Level 298 mg/dL (70-99) Calcium Level 9.4 mg/dL (8.5-10.1) Total Bilirubin 0.4 mg/dL (0.2-1.0) Aspartate Amino Transf (AST/SGOT) 26 U/L (15-37) Alanine Aminotransferase (ALT/SGPT) 21 U/L (16-63) Alkaline Phosphatase 89 U/L (46-116) Total Protein 7.6 g/dL (6.4-8.2) Albumin 3.4 g/dL (3.4-5.0) Albumin/Globulin Ratio 0.8 (1.0-1.7) Lipase 128 U/L (73-393) Glucose (Fingerstick) 295 mg/dL (70-99) 312 mg/dL (70-99) 274 mg/dL (70-99) Test 05/09/19 00:52 05/09/19 01:53 05/09/19 02:55 05/09/19 03:53 Glucose (Fingerstick) 254 mg/dL (70-99) 226 mg/dL (70-99) 167 mg/dL (70-99) 148 mg/dL (70-99) Test 05/09/19 04:54 05/09/19 05:35 05/09/19 05:57 05/09/19 06:59 Glucose (Fingerstick) 123 mg/dL (70-99) 119 mg/dL (70-99) 118 mg/dL (70-99) White Blood Count 2.5 x10^3/uL (4.0-11.0) Red Blood Count 3.22 x10^6/uL (4.30-5.70) Hemoglobin 10.3 g/dL (13.0-17.5) Hematocrit 31.1 % (39.0-53.0) Mean Corpuscular Volume 96 fL (79-100) Mean Corpuscular Hemoglobin 32 pg (25-35) Mean Corpuscular Hemoglobin Concent 33 g/dL (31-37) Red Cell Distribution Width 13.6 % (11.5-14.5) Platelet Count 138 x10^3/uL (140-400) Neutrophils (%) (Auto) 74 % (31-73) Lymphocytes (%) (Auto) 12 % (24-48) Monocytes (%) (Auto) 14 % (0-9) Eosinophils (%) (Auto) 0 % (0-3) Basophils (%) (Auto) 0 % (0-3) Neutrophils # (Auto) 1.9 x10^3/uL (1.8-7.7) Lymphocytes # (Auto) 0.3 x10^3/uL (1.0-4.8) Monocytes # (Auto) 0.3 x10^3/uL (0.0-1.1) Eosinophils # (Auto) 0.0 x10^3/uL (0.0-0.7) Basophils # (Auto) 0.0 x10^3/uL (0.0-0.2) Sodium Level 141 mmol/L (136-145) Potassium Level 5.2 mmol/L (3.5-5.1) Chloride Level 106 mmol/L (98-107) Carbon Dioxide Level 25 mmol/L (21-32) Anion Gap 10 (6-14) Blood Urea Nitrogen 44 mg/dL (8-26) Creatinine 2.3 mg/dL (0.7-1.3) Estimated GFR (Cockcroft-Gault) 28.0 Glucose Level 129 mg/dL (70-99) Calcium Level 8.1 mg/dL (8.5-10.1) Laboratory Tests Test 05/08/19 16:44 05/08/19 20:43 05/08/19 22:48 05/08/19 23:53 White Blood Count 6.5 x10^3/uL (4.0-11.0) Red Blood Count 4.16 x10^6/uL (4.30-5.70) Hemoglobin 13.4 g/dL (13.0-17.5) Hematocrit 39.7 % (39.0-53.0) Mean Corpuscular Volume 96 fL (79-100) Mean Corpuscular Hemoglobin 32 pg (25-35) Mean Corpuscular Hemoglobin Concent 34 g/dL (31-37) Red Cell Distribution Width 13.8 % (11.5-14.5) Platelet Count 211 x10^3/uL (140-400) Neutrophils (%) (Auto) 85 % (31-73) Lymphocytes (%) (Auto) 8 % (24-48) Monocytes (%) (Auto) 6 % (0-9) Eosinophils (%) (Auto) 0 % (0-3) Basophils (%) (Auto) 1 % (0-3) Neutrophils # (Auto) 5.5 x10^3/uL (1.8-7.7) Lymphocytes # (Auto) 0.6 x10^3/uL (1.0-4.8) Monocytes # (Auto) 0.4 x10^3/uL (0.0-1.1) Eosinophils # (Auto) 0.0 x10^3/uL (0.0-0.7) Basophils # (Auto) 0.0 x10^3/uL (0.0-0.2) D-Dimer (Zoila) 5.78 ug/mlFEU (0.00-0.50) Sodium Level 135 mmol/L (136-145) Potassium Level 5.0 mmol/L (3.5-5.1) Chloride Level 97 mmol/L (98-107) Carbon Dioxide Level 25 mmol/L (21-32) Anion Gap 13 (6-14) Blood Urea Nitrogen 36 mg/dL (8-26) Creatinine 1.5 mg/dL (0.7-1.3) Estimated GFR (Cockcroft-Gault) 45.9 BUN/Creatinine Ratio 24 (6-20) Glucose Level 298 mg/dL (70-99) Calcium Level 9.4 mg/dL (8.5-10.1) Total Bilirubin 0.4 mg/dL (0.2-1.0) Aspartate Amino Transf (AST/SGOT) 26 U/L (15-37) Alanine Aminotransferase (ALT/SGPT) 21 U/L (16-63) Alkaline Phosphatase 89 U/L (46-116) Total Protein 7.6 g/dL (6.4-8.2) Albumin 3.4 g/dL (3.4-5.0) Albumin/Globulin Ratio 0.8 (1.0-1.7) Lipase 128 U/L (73-393) Glucose (Fingerstick) 295 mg/dL (70-99) 312 mg/dL (70-99) 274 mg/dL (70-99) Test 05/09/19 00:52 05/09/19 01:53 05/09/19 02:55 05/09/19 03:53 Glucose (Fingerstick) 254 mg/dL (70-99) 226 mg/dL (70-99) 167 mg/dL (70-99) 148 mg/dL (70-99) Test 05/09/19 04:54 05/09/19 05:35 05/09/19 05:57 05/09/19 06:59 Glucose (Fingerstick) 123 mg/dL (70-99) 119 mg/dL (70-99) 118 mg/dL (70-99) White Blood Count 2.5 x10^3/uL (4.0-11.0) Red Blood Count 3.22 x10^6/uL (4.30-5.70) Hemoglobin 10.3 g/dL (13.0-17.5) Hematocrit 31.1 % (39.0-53.0) Mean Corpuscular Volume 96 fL (79-100) Mean Corpuscular Hemoglobin 32 pg (25-35) Mean Corpuscular Hemoglobin Concent 33 g/dL (31-37) Red Cell Distribution Width 13.6 % (11.5-14.5) Platelet Count 138 x10^3/uL (140-400) Neutrophils (%) (Auto) 74 % (31-73) Lymphocytes (%) (Auto) 12 % (24-48) Monocytes (%) (Auto) 14 % (0-9) Eosinophils (%) (Auto) 0 % (0-3) Basophils (%) (Auto) 0 % (0-3) Neutrophils # (Auto) 1.9 x10^3/uL (1.8-7.7) Lymphocytes # (Auto) 0.3 x10^3/uL (1.0-4.8) Monocytes # (Auto) 0.3 x10^3/uL (0.0-1.1) Eosinophils # (Auto) 0.0 x10^3/uL (0.0-0.7) Basophils # (Auto) 0.0 x10^3/uL (0.0-0.2) Sodium Level 141 mmol/L (136-145) Potassium Level 5.2 mmol/L (3.5-5.1) Chloride Level 106 mmol/L (98-107) Carbon Dioxide Level 25 mmol/L (21-32) Anion Gap 10 (6-14) Blood Urea Nitrogen 44 mg/dL (8-26) Creatinine 2.3 mg/dL (0.7-1.3) Estimated GFR (Cockcroft-Gault) 28.0 Glucose Level 129 mg/dL (70-99) Calcium Level 8.1 mg/dL (8.5-10.1) Problem List Problems Medical Problems: (1) Perforated intestine, nontraumatic Status: Acute Assessment/Plan Status post laparotomy with repair of duodenal ulcer Dawood patch Patient currently neutropenic on antibiotic coverage as well as antifungal Hyperkalemic with creatinine 2.3 borderline urinary output Consult pulmonary and nephrology Continue supportive care JAZMINE URIBE MD May 09, 2019 09:44
--- NOTE | 2019-05-09 10:03 | PDOC2 ---
CONSULT Date of Consult Date of Consult DATE: 05/09/19 TIME: 09:23 Reason for Consult Reason for Consult: GREGG Source Source: Chart review History of Present Illness Reason for Visit: Pt is a 73-year-old male came to the emergency department with complaints of severe abdominal pain nausea vomiting started approximately 2 hours prior. He had a normal bowel movement, denies any blood in his emesis. CT scan shows free air in the right upper quadrant of his abdomen with some perihepatic ascites no evidence of small bowel obstruction no evidence of colitis diverticulitis. He had a right shoulder surgery done 2 days ago and has been on NSAID's for quite some time. Past Medical History Cardiovascular: HTN Pulmonary: No pertinent hx GI: Gastritis, Peptic Ulcer disease Heme/Onc: No pertinent hx Hepatobiliary: No pertinent hx Psych: No pertinent hx Musculoskeletal: Other (shoulder pain) Rheumatologic: No pertinent hx Infectious disease: No pertinent hx ENT: No pertinent hx Renal/: Chronic renal insuff Endocrine: Diabetes Dermatology: No pertinent hx Past Surgical History Past Surgical History: Other (right shoulder surgery postop 2 days) Family History Family History: No Significant Social History Quit ALCOHOL: rare Drugs: None Lives: with Family Current Problem List Problem List Problems Medical Problems: (1) Perforated intestine, nontraumatic Status: Acute Current Medications Current Medications Current Medications Fentanyl Citrate (Fentanyl 2ml Vial) 50 mcg PRN Q15MIN PRN IV PAIN GREATER THAN 3/10 Last administered on 05/08/19at 19:27; Start 05/08/19 at 16:30; Stop 05/08/19 at 21:00; Status DC Sodium Chloride 1,000 ml @ 250 mls/hr Q4H IV Last administered on 05/08/19at 16:54; Start 05/08/19 at 16:19; Stop 05/08/19 at 20:18; Status DC Metoclopramide HCl (Reglan Vial) 10 mg 1X ONCE IVP Last administered on 05/08/19at 16:51; Start 05/08/19 at 17:00; Stop 05/08/19 at 17:01; Status DC Diphenhydramine HCl (Benadryl) 25 mg 1X ONCE IVP Last administered on 05/08/19at 16:51; Start 05/08/19 at 17:00; Stop 05/08/19 at 17:01; Status DC Iohexol (Omnipaque 350 Mg/ml) 90 ml 1X ONCE IV Last administered on 05/08/19at 17:45; Start 05/08/19 at 17:30; Stop 05/08/19 at 17:31; Status DC Info (CONTRAST GIVEN -- Rx MONITORING) 1 each PRN DAILY PRN MC SEE COMMENTS; Start 05/08/19 at 17:30; Stop 05/10/19 at 17:29 Hydromorphone HCl (Dilaudid) 1 mg 1X ONCE IV Last administered on 05/08/19at 18:23; Start 05/08/19 at 18:30; Stop 05/08/19 at 18:31; Status DC Piperacillin Sod/ Tazobactam Sod 3.375 gm/Sodium Chloride 50 ml @ 100 mls/hr 1X ONCE IV Last administered on 05/08/19at 19:06; Start 05/08/19 at 19:00; Stop 05/08/19 at 19:29; Status DC Sodium Chloride 1,000 ml @ 1,000 mls/hr 1X ONCE IV Last administered on 05/08/19at 19:06; Start 05/08/19 at 19:00; Stop 05/08/19 at 19:59; Status DC Ondansetron HCl (Zofran) 4 mg STK-MED ONCE .ROUTE ; Start 05/08/19 at 19:34; Stop 05/08/19 at 19:34; Status DC Propofol 20 ml @ As Directed STK-MED ONCE IV ; Start 05/08/19 at 19:34; Stop 05/08/19 at 19:34; Status DC Lidocaine HCl (Lidocaine Pf 2% Vial) 5 ml STK-MED ONCE .ROUTE ; Start 05/08/19 at 19:34; Stop 05/08/19 at 19:34; Status DC Dexamethasone Sodium Phosphate (Decadron) 4 mg STK-MED ONCE .ROUTE ; Start 05/08/19 at 19:34; Stop 05/08/19 at 19:34; Status DC Fentanyl Citrate (Fentanyl 2ml Vial) 100 mcg STK-MED ONCE .ROUTE ; Start 05/08/19 at 19:34; Stop 05/08/19 at 19:34; Status DC Succinylcholine Chloride (Anectine) 200 mg STK-MED ONCE .ROUTE ; Start 05/08/19 at 19:34; Stop 05/08/19 at 19:34; Status DC Rocuronium [place] (Zemuron) 50 mg STK-MED ONCE .ROUTE ; Start 05/08/19 at 19:34; Stop 05/08/19 at 19:34; Status DC Ondansetron HCl (Zofran) 4 mg PRN Q6HRS PRN IV NAUSEA/VOMITING; Start 05/08/19 at 19:45; Stop 05/08/19 at 23:59; Status DC Fentanyl Citrate (Fentanyl 2ml Vial) 25 mcg PRN Q5MIN PRN IV MILD PAIN 1-3; Start 05/08/19 at 19:45; Stop 05/08/19 at 23:59; Status DC Fentanyl Citrate (Fentanyl 2ml Vial) 50 mcg PRN Q5MIN PRN IV MODERATE TO SEVERE PAIN; Start 05/08/19 at 19:45; Stop 05/08/19 at 23:59; Status DC Ringer's Solution 1,000 ml @ 30 mls/hr Q24H IV Last administered on 05/08/19at 23:06; Start 05/08/19 at 20:00; Stop 05/09/19 at 01:00; Status DC Prochlorperazine Edisylate (Compazine) 5 mg PACU PRN PRN IV NAUSEA, MRX1; Start 05/08/19 at 19:45; Stop 05/08/19 at 23:59; Status DC Insulin Human Lispro (HumaLOG VIAL for OP,RR ONLY) 0-10 units PRN Q1HR PRN SQ PER PROTOCOL; Start 05/08/19 at 19:45; Stop 05/08/19 at 23:59; Status DC Bupivacaine HCl/ Epinephrine Bitart (Sensorcaine-Epi 0.25%-1:170076 Mpf) 30 ml 1X ONCE INJ Last administered on 05/08/19at 20:32; Start 05/08/19 at 20:00; Stop 05/08/19 at 20:01; Status DC Ketamine HCl (Ketamine) 50 mg STK-MED ONCE .ROUTE ; Start 05/08/19 at 20:12; Stop 05/08/19 at 20:12; Status DC Phenylephrine HCl (PHENYLEPHRINE in 0.9% NACL PF) 1 mg STK-MED ONCE IV ; Start 05/08/19 at 20:33; Stop 05/08/19 at 20:33; Status DC Ephedrine Sulfate (ePHEDrine PF IN SALINE SYRINGE) 50 mg STK-MED ONCE IV ; Start 05/08/19 at 20:36; Stop 05/08/19 at 20:36; Status DC Albumin Human 500 ml @ As Directed STK-MED ONCE IV ; Start 05/08/19 at 20:55; Stop 05/08/19 at 20:55; Status DC Glycopyrrolate (Robinul) 1 mg STK-MED ONCE .ROUTE ; Start 05/08/19 at 21:27; Stop 05/08/19 at 21:27; Status DC Neostigmine Methylsulfate (Neostigmine Methylsulfate) 5 mg STK-MED ONCE .ROUTE ; Start 05/08/19 at 21:27; Stop 05/08/19 at 21:27; Status DC Bupivacaine HCl (Sensorcaine Mpf 0.5%) 30 ml STK-MED ONCE .ROUTE ; Start 05/08/19 at 21:39; Stop 05/08/19 at 21:39; Status DC Epinephrine HCl (Adrenalin) 1 mg STK-MED ONCE .ROUTE ; Start 05/08/19 at 21:39; Stop 05/08/19 at 21:39; Status DC Sevoflurane (Ultane) 60 ml STK-MED ONCE IH ; Start 05/08/19 at 21:44; Stop 05/08/19 at 21:44; Status DC Sodium Chloride 1,000 ml @ 125 mls/hr Q8H IV Last administered on 05/08/19at 23:45; Start 05/08/19 at 22:00 Ondansetron HCl (Zofran) 4 mg PRN Q6HRS PRN IVP NAUSEA/VOMITING 1ST CHOICE; Start 05/08/19 at 22:00 Fluconazole/ Sodium Chloride 100 ml @ 100 mls/hr Q24H IV Last administered on 05/08/19at 23:05; Start 05/08/19 at 22:00 Hydromorphone HCl (Dilaudid) 1 mg PRN Q4HRS PRN IV SEVERE PAIN 7-10; Start 05/08/19 at 22:00 Piperacillin Sod/ Tazobactam Sod 3.375 gm/Sodium Chloride 50 ml @ 100 mls/hr Q6HRS IV Last administered on 05/09/19at 06:08; Start 05/09/19 at 00:00 Pantoprazole Sodium (PROTONIX VIAL for IV PUSH) 40 mg DAILY IVP ; Start 05/09/19 at 09:00 Insulin Human Regular 150 unit/ Sodium Chloride 151.5 ml @ 0 mls/hr CONT PRN IV SEE I/O RECORD; Start 05/08/19 at 23:00; Status UNV Insulin Human Regular 150 unit/ Sodium Chloride 151.5 ml @ 0 mls/hr CONT PRN IV SEE I/O RECORD Last administered on 05/08/19at 23:03; Start 05/08/19 at 23:00 Dextrose (Dextrose 50%-Water Syringe) 12.5 gm PRN Q15MIN PRN IV LOW BLOOD SUGAR; Start 05/08/19 at 23:00 Dextrose 250 ml PRN Q15MIN PRN IV LOW BLOOD SUGAR; Start 05/08/19 at 23:00 Albumin Human 500 ml @ 250 mls/hr 1X ONCE IV Last administered on 05/09/19at 00:10; Start 05/09/19 at 00:30; Stop 05/09/19 at 02:29; Status DC Norepinephrine Bitartrate 250 ml @ 20.156 mls/ hr CONT PRN IV SEE I/O RECORD; Start 05/09/19 at 00:00 Dextrose/Sodium Chloride 1,000 ml @ 250 mls/hr Q4H IV ; Start 05/09/19 at 08:45 Active Scripts Active Reported Venlafaxine Hcl 75 Mg Tablet Unknown Dose PO DAILY Simvastatin 10 Mg Tablet 10 Mg PO DAILY Metformin Hcl 1,000 Mg Tablet 1,000 Mg PO BIDWMEALS Meloxicam 15 Mg Tablet Unknown Dose PO DAILY Lisinopril 10 Mg Tablet Unknown Dose PO DAILY Humalog (Insulin Lispro) 100 Unit/1 Ml Cartridge 100 Unit SQ Sinemet 25-100 Mg Tablet (Carbidopa/Levodopa) 1 Each Tablet 1 Tab PO TID Allergies Allergies: Coded Allergies: sulfamethoxazole (Verified Allergy, Severe, Altered Mental Status , ) trimethoprim (Verified Allergy, Severe, Altered Mental Status , 05/08/19) Sulfa (Sulfonamide Antibiotics) (Verified Allergy, Intermediate, 05/08/19) ciprofloxacin (Verified Allergy, Intermediate, rash, 05/08/19) codeine (Verified Allergy, Intermediate, Rash, 05/08/19) ROS Review of System Physical Exam Physical Exam General:NAD HEENT: OM moist, Ventuti mask Neck supple Lungs: Clear to auscultation Heart: Regular rate, Abdomen: Soft , has a MACKENZIE drain post surgery Extremities: No edema,ecchymosis right shoulder Skin: No significant lesion, No rash Neuro: grossly normal - alcantara + Vital Signs Vital Signs Date Time Temp Pulse Resp B/P (MAP) Pulse Ox O2 Delivery O2 Flow Rate FiO2 05/09/19 06:00 93 18 90/53 (65) 93 Venturi Mask 05/09/19 04:00 15.0 05/09/19 04:00 100.0 100.0 Assessment & Plan GREGG - ATN 2/2 to Perf Dudod ulcer/Hypotension /IV Contrast with CTA Non Oliguric , NSAID use for shoulder surgery recently (Meloxicam per home med list ) and ASA On insulin drip protocol including IVF per primary Supportive care, if UOP declines--> flush alcantara, IV NS bolus , avoid nephrotoxins Perforated duodenal ulcer with free air peritonitis- s/p diagnostic laparoscopy with open laparotomy and closure of duodenal ulcer and Dawood patch HTN- on antihypertensives - Low dose lisinopril- Held Since presentation hypotension with BP as low as 70's systolic DM - Per Primary On IV Insulin drip Nephrolithiasis- gives Hx of passing stone few years back CT scan shows Kidney stone, Non obstructing Panyctopenia- consider repeating Defer to primary Hypoxia- On venturia mask CxR unremarkable, Pulm consulted Labs Labs Laboratory Tests Test 05/08/19 16:44 05/08/19 20:43 05/08/19 22:48 05/08/19 23:53 White Blood Count 6.5 x10^3/uL (4.0-11.0) Red Blood Count 4.16 x10^6/uL (4.30-5.70) Hemoglobin 13.4 g/dL (13.0-17.5) Hematocrit 39.7 % (39.0-53.0) Mean Corpuscular Volume 96 fL (79-100) Mean Corpuscular Hemoglobin 32 pg (25-35) Mean Corpuscular Hemoglobin Concent 34 g/dL (31-37) Red Cell Distribution Width 13.8 % (11.5-14.5) Platelet Count 211 x10^3/uL (140-400) Neutrophils (%) (Auto) 85 % (31-73) Lymphocytes (%) (Auto) 8 % (24-48) Monocytes (%) (Auto) 6 % (0-9) Eosinophils (%) (Auto) 0 % (0-3) Basophils (%) (Auto) 1 % (0-3) Neutrophils # (Auto) 5.5 x10^3/uL (1.8-7.7) Lymphocytes # (Auto) 0.6 x10^3/uL (1.0-4.8) Monocytes # (Auto) 0.4 x10^3/uL (0.0-1.1) Eosinophils # (Auto) 0.0 x10^3/uL (0.0-0.7) Basophils # (Auto) 0.0 x10^3/uL (0.0-0.2) D-Dimer (Zoila) 5.78 ug/mlFEU (0.00-0.50) Sodium Level 135 mmol/L (136-145) Potassium Level 5.0 mmol/L (3.5-5.1) Chloride Level 97 mmol/L (98-107) Carbon Dioxide Level 25 mmol/L (21-32) Anion Gap 13 (6-14) Blood Urea Nitrogen 36 mg/dL (8-26) Creatinine 1.5 mg/dL (0.7-1.3) Estimated GFR (Cockcroft-Gault) 45.9 BUN/Creatinine Ratio 24 (6-20) Glucose Level 298 mg/dL (70-99) Calcium Level 9.4 mg/dL (8.5-10.1) Total Bilirubin 0.4 mg/dL (0.2-1.0) Aspartate Amino Transf (AST/SGOT) 26 U/L (15-37) Alanine Aminotransferase (ALT/SGPT) 21 U/L (16-63) Alkaline Phosphatase 89 U/L (46-116) Total Protein 7.6 g/dL (6.4-8.2) Albumin 3.4 g/dL (3.4-5.0) Albumin/Globulin Ratio 0.8 (1.0-1.7) Lipase 128 U/L (73-393) Glucose (Fingerstick) 295 mg/dL (70-99) 312 mg/dL (70-99) 274 mg/dL (70-99) Test 05/09/19 00:52 05/09/19 01:53 05/09/19 02:55 05/09/19 03:53 Glucose (Fingerstick) 254 mg/dL (70-99) 226 mg/dL (70-99) 167 mg/dL (70-99) 148 mg/dL (70-99) Test 05/09/19 04:54 05/09/19 05:35 05/09/19 05:57 05/09/19 06:59 Glucose (Fingerstick) 123 mg/dL (70-99) 119 mg/dL (70-99) 118 mg/dL (70-99) White Blood Count 2.5 x10^3/uL (4.0-11.0) Red Blood Count 3.22 x10^6/uL (4.30-5.70) Hemoglobin 10.3 g/dL (13.0-17.5) Hematocrit 31.1 % (39.0-53.0) Mean Corpuscular Volume 96 fL (79-100) Mean Corpuscular Hemoglobin 32 pg (25-35) Mean Corpuscular Hemoglobin Concent 33 g/dL (31-37) Red Cell Distribution Width 13.6 % (11.5-14.5) Platelet Count 138 x10^3/uL (140-400) Neutrophils (%) (Auto) 74 % (31-73) Lymphocytes (%) (Auto) 12 % (24-48) Monocytes (%) (Auto) 14 % (0-9) Eosinophils (%) (Auto) 0 % (0-3) Basophils (%) (Auto) 0 % (0-3) Neutrophils # (Auto) 1.9 x10^3/uL (1.8-7.7) Lymphocytes # (Auto) 0.3 x10^3/uL (1.0-4.8) Monocytes # (Auto) 0.3 x10^3/uL (0.0-1.1) Eosinophils # (Auto) 0.0 x10^3/uL (0.0-0.7) Basophils # (Auto) 0.0 x10^3/uL (0.0-0.2) Sodium Level 141 mmol/L (136-145) Potassium Level 5.2 mmol/L (3.5-5.1) Chloride Level 106 mmol/L (98-107) Carbon Dioxide Level 25 mmol/L (21-32) Anion Gap 10 (6-14) Blood Urea Nitrogen 44 mg/dL (8-26) Creatinine 2.3 mg/dL (0.7-1.3) Estimated GFR (Cockcroft-Gault) 28.0 Glucose Level 129 mg/dL (70-99) Calcium Level 8.1 mg/dL (8.5-10.1) Laboratory Tests Test 05/08/19 16:44 05/08/19 20:43 05/08/19 22:48 05/08/19 23:53 White Blood Count 6.5 x10^3/uL (4.0-11.0) Red Blood Count 4.16 x10^6/uL (4.30-5.70) Hemoglobin 13.4 g/dL (13.0-17.5) Hematocrit 39.7 % (39.0-53.0) Mean Corpuscular Volume 96 fL (79-100) Mean Corpuscular Hemoglobin 32 pg (25-35) Mean Corpuscular Hemoglobin Concent 34 g/dL (31-37) Red Cell Distribution Width 13.8 % (11.5-14.5) Platelet Count 211 x10^3/uL (140-400) Neutrophils (%) (Auto) 85 % (31-73) Lymphocytes (%) (Auto) 8 % (24-48) Monocytes (%) (Auto) 6 % (0-9) Eosinophils (%) (Auto) 0 % (0-3) Basophils (%) (Auto) 1 % (0-3) Neutrophils # (Auto) 5.5 x10^3/uL (1.8-7.7) Lymphocytes # (Auto) 0.6 x10^3/uL (1.0-4.8) Monocytes # (Auto) 0.4 x10^3/uL (0.0-1.1) Eosinophils # (Auto) 0.0 x10^3/uL (0.0-0.7) Basophils # (Auto) 0.0 x10^3/uL (0.0-0.2) D-Dimer (Zoila) 5.78 ug/mlFEU (0.00-0.50) Sodium Level 135 mmol/L (136-145) Potassium Level 5.0 mmol/L (3.5-5.1) Chloride Level 97 mmol/L (98-107) Carbon Dioxide Level 25 mmol/L (21-32) Anion Gap 13 (6-14) Blood Urea Nitrogen 36 mg/dL (8-26) Creatinine 1.5 mg/dL (0.7-1.3) Estimated GFR (Cockcroft-Gault) 45.9 BUN/Creatinine Ratio 24 (6-20) Glucose Level 298 mg/dL (70-99) Calcium Level 9.4 mg/dL (8.5-10.1) Total Bilirubin 0.4 mg/dL (0.2-1.0) Aspartate Amino Transf (AST/SGOT) 26 U/L (15-37) Alanine Aminotransferase (ALT/SGPT) 21 U/L (16-63) Alkaline Phosphatase 89 U/L (46-116) Total Protein 7.6 g/dL (6.4-8.2) Albumin 3.4 g/dL (3.4-5.0) Albumin/Globulin Ratio 0.8 (1.0-1.7) Lipase 128 U/L (73-393) Glucose (Fingerstick) 295 mg/dL (70-99) 312 mg/dL (70-99) 274 mg/dL (70-99) Test 05/09/19 00:52 05/09/19 01:53 05/09/19 02:55 05/09/19 03:53 Glucose (Fingerstick) 254 mg/dL (70-99) 226 mg/dL (70-99) 167 mg/dL (70-99) 148 mg/dL (70-99) Test 05/09/19 04:54 05/09/19 05:35 05/09/19 05:57 05/09/19 06:59 Glucose (Fingerstick) 123 mg/dL (70-99) 119 mg/dL (70-99) 118 mg/dL (70-99) White Blood Count 2.5 x10^3/uL (4.0-11.0) Red Blood Count 3.22 x10^6/uL (4.30-5.70) Hemoglobin 10.3 g/dL (13.0-17.5) Hematocrit 31.1 % (39.0-53.0) Mean Corpuscular Volume 96 fL (79-100) Mean Corpuscular Hemoglobin 32 pg (25-35) Mean Corpuscular Hemoglobin Concent 33 g/dL (31-37) Red Cell Distribution Width 13.6 % (11.5-14.5) Platelet Count 138 x10^3/uL (140-400) Neutrophils (%) (Auto) 74 % (31-73) Lymphocytes (%) (Auto) 12 % (24-48) Monocytes (%) (Auto) 14 % (0-9) Eosinophils (%) (Auto) 0 % (0-3) Basophils (%) (Auto) 0 % (0-3) Neutrophils # (Auto) 1.9 x10^3/uL (1.8-7.7) Lymphocytes # (Auto) 0.3 x10^3/uL (1.0-4.8) Monocytes # (Auto) 0.3 x10^3/uL (0.0-1.1) Eosinophils # (Auto) 0.0 x10^3/uL (0.0-0.7) Basophils # (Auto) 0.0 x10^3/uL (0.0-0.2) Sodium Level 141 mmol/L (136-145) Potassium Level 5.2 mmol/L (3.5-5.1) Chloride Level 106 mmol/L (98-107) Carbon Dioxide Level 25 mmol/L (21-32) Anion Gap 10 (6-14) Blood Urea Nitrogen 44 mg/dL (8-26) Creatinine 2.3 mg/dL (0.7-1.3) Estimated GFR (Cockcroft-Gault) 28.0 Glucose Level 129 mg/dL (70-99) Calcium Level 8.1 mg/dL (8.5-10.1) Review All relevant outside records, renal labs, imaging studies, telemetry/EKG's were reviewed. Images Images CTA abdomen-- 1. Extraluminal collections of air are seen within the right upper quadrant of the abdomen. A small amount of free air is seen within the upper abdomen. Small amount of ascites is seen within the abdomen and pelvis. These findings are concerning for a bowel perforation. 2. No acute abnormality is seen involving the thoracic or abdominal aorta and their branches. Left kidney are within normal limits. A 7 mm nonobstructing calculus is seen within the lower pole of the right kidney. Fullness of both adrenal glands is seen. Images through the pelvis demonstrate the urinary bladder distended with urine. Small amount of free fluid is seen within the pelvis Cxr- 1. No acute cardiopulmonary process. 2. Enteric tube with tip projecting over the proximal stomach. ANA BERRIOS MD May 09, 2019 10:02
[2019-05-09 10:31] LABS: % ATYL 2 % (0-0); % BANDS 30 % (0-9); % LYMPHS 12 % (24-48); % METAS 1 % (0-0); % MONOS 10 % (0-10); % SEGS 45 % (35-66)
[2019-05-09 10:32] LABS: PLT ESTIMATE DECREASED (ADEQUATE)
[2019-05-09 10:40] LABS: CALCIUM 7.6 mg/dL (8.5-10.1); CREATININE 2.5 mg/dL (0.7-1.3); GFR 25.4; POTASSIUM 5.7 mmol/L (3.5-5.1)
[2019-05-09 10:46] LABS: ALBUMIN 2.6 g/dL (3.4-5.0); ALBUMIN/GLOBULIN RATIO 0.9 (1.0-1.7); MAGNESIUM 1.7 mg/dL (1.8-2.4); TOTAL BILIRUBIN 0.4 mg/dL (0.2-1.0); TOTAL PROTEIN 5.5 g/dL (6.4-8.2)
[2019-05-09] MEDS ORDERED: IV NORMAL SALINE 500ML BAG 500 ML IV PRN ×2 (11:15→12:45)
--- NOTE | 2019-05-09 11:48 | PDOC ---
PULMONARY PROGRESS NOTES Vitals Vital Signs Date Time Temp Pulse Resp B/P (MAP) Pulse Ox O2 Delivery O2 Flow Rate FiO2 05/09/19 10:00 99.7 104 24 122/62 (82) 91 Venturi Mask 99.7 05/09/19 08:00 15.0 Labs Laboratory Tests Test 05/08/19 16:44 05/08/19 20:43 05/08/19 22:48 05/08/19 23:53 White Blood Count 6.5 x10^3/uL (4.0-11.0) Red Blood Count 4.16 x10^6/uL (4.30-5.70) Hemoglobin 13.4 g/dL (13.0-17.5) Hematocrit 39.7 % (39.0-53.0) Mean Corpuscular Volume 96 fL (79-100) Mean Corpuscular Hemoglobin 32 pg (25-35) Mean Corpuscular Hemoglobin Concent 34 g/dL (31-37) Red Cell Distribution Width 13.8 % (11.5-14.5) Platelet Count 211 x10^3/uL (140-400) Neutrophils (%) (Auto) 85 % (31-73) Lymphocytes (%) (Auto) 8 % (24-48) Monocytes (%) (Auto) 6 % (0-9) Eosinophils (%) (Auto) 0 % (0-3) Basophils (%) (Auto) 1 % (0-3) Neutrophils # (Auto) 5.5 x10^3/uL (1.8-7.7) Lymphocytes # (Auto) 0.6 x10^3/uL (1.0-4.8) Monocytes # (Auto) 0.4 x10^3/uL (0.0-1.1) Eosinophils # (Auto) 0.0 x10^3/uL (0.0-0.7) Basophils # (Auto) 0.0 x10^3/uL (0.0-0.2) D-Dimer (Zoila) 5.78 ug/mlFEU (0.00-0.50) Sodium Level 135 mmol/L (136-145) Potassium Level 5.0 mmol/L (3.5-5.1) Chloride Level 97 mmol/L (98-107) Carbon Dioxide Level 25 mmol/L (21-32) Anion Gap 13 (6-14) Blood Urea Nitrogen 36 mg/dL (8-26) Creatinine 1.5 mg/dL (0.7-1.3) Estimated GFR (Cockcroft-Gault) 45.9 BUN/Creatinine Ratio 24 (6-20) Glucose Level 298 mg/dL (70-99) Calcium Level 9.4 mg/dL (8.5-10.1) Total Bilirubin 0.4 mg/dL (0.2-1.0) Aspartate Amino Transf (AST/SGOT) 26 U/L (15-37) Alanine Aminotransferase (ALT/SGPT) 21 U/L (16-63) Alkaline Phosphatase 89 U/L (46-116) Total Protein 7.6 g/dL (6.4-8.2) Albumin 3.4 g/dL (3.4-5.0) Albumin/Globulin Ratio 0.8 (1.0-1.7) Lipase 128 U/L (73-393) Glucose (Fingerstick) 295 mg/dL (70-99) 312 mg/dL (70-99) 274 mg/dL (70-99) Test 05/09/19 00:52 05/09/19 01:53 05/09/19 02:55 05/09/19 03:53 Glucose (Fingerstick) 254 mg/dL (70-99) 226 mg/dL (70-99) 167 mg/dL (70-99) 148 mg/dL (70-99) Test 05/09/19 04:54 05/09/19 05:35 05/09/19 05:57 05/09/19 06:59 Glucose (Fingerstick) 123 mg/dL (70-99) 119 mg/dL (70-99) 118 mg/dL (70-99) White Blood Count 2.5 x10^3/uL (4.0-11.0) Red Blood Count 3.22 x10^6/uL (4.30-5.70) Hemoglobin 10.3 g/dL (13.0-17.5) Hematocrit 31.1 % (39.0-53.0) Mean Corpuscular Volume 96 fL (79-100) Mean Corpuscular Hemoglobin 32 pg (25-35) Mean Corpuscular Hemoglobin Concent 33 g/dL (31-37) Red Cell Distribution Width 13.6 % (11.5-14.5) Platelet Count 138 x10^3/uL (140-400) Neutrophils (%) (Auto) 74 % (31-73) Lymphocytes (%) (Auto) 12 % (24-48) Monocytes (%) (Auto) 14 % (0-9) Eosinophils (%) (Auto) 0 % (0-3) Basophils (%) (Auto) 0 % (0-3) Neutrophils # (Auto) 1.9 x10^3/uL (1.8-7.7) Lymphocytes # (Auto) 0.3 x10^3/uL (1.0-4.8) Monocytes # (Auto) 0.3 x10^3/uL (0.0-1.1) Eosinophils # (Auto) 0.0 x10^3/uL (0.0-0.7) Basophils # (Auto) 0.0 x10^3/uL (0.0-0.2) Segmented Neutrophils % 45 % (35-66) Band Neutrophils % 30 % (0-9) Lymphocytes % 12 % (24-48) Atypical Lymphocytes % (Manual) 2 % (0-0) Monocytes % 10 % (0-10) Metamyelocytes % 1 % (0-0) Platelet Estimate Decreased (ADEQUATE) Large Platelets Present Sodium Level 141 mmol/L (136-145) Potassium Level 5.2 mmol/L (3.5-5.1) Chloride Level 106 mmol/L (98-107) Carbon Dioxide Level 25 mmol/L (21-32) Anion Gap 10 (6-14) Blood Urea Nitrogen 44 mg/dL (8-26) Creatinine 2.3 mg/dL (0.7-1.3) Estimated GFR (Cockcroft-Gault) 28.0 Glucose Level 129 mg/dL (70-99) Calcium Level 8.1 mg/dL (8.5-10.1) Test 05/09/19 09:23 05/09/19 10:15 05/09/19 10:26 Glucose (Fingerstick) 169 mg/dL (70-99) 200 mg/dL (70-99) Sodium Level 139 mmol/L (136-145) Potassium Level 5.7 mmol/L (3.5-5.1) Chloride Level 104 mmol/L (98-107) Carbon Dioxide Level 26 mmol/L (21-32) Anion Gap 9 (6-14) Blood Urea Nitrogen 46 mg/dL (8-26) Creatinine 2.5 mg/dL (0.7-1.3) Estimated GFR (Cockcroft-Gault) 25.4 BUN/Creatinine Ratio 18 (6-20) Glucose Level 197 mg/dL (70-99) Calcium Level 7.6 mg/dL (8.5-10.1) Phosphorus Level 3.0 mg/dL (2.6-4.7) Magnesium Level 1.7 mg/dL (1.8-2.4) Total Bilirubin 0.4 mg/dL (0.2-1.0) Aspartate Amino Transf (AST/SGOT) 110 U/L (15-37) Alanine Aminotransferase (ALT/SGPT) 50 U/L (16-63) Alkaline Phosphatase 43 U/L (46-116) Total Protein 5.5 g/dL (6.4-8.2) Albumin 2.6 g/dL (3.4-5.0) Albumin/Globulin Ratio 0.9 (1.0-1.7) Laboratory Tests Test 05/08/19 16:44 05/08/19 20:43 05/08/19 22:48 05/08/19 23:53 White Blood Count 6.5 x10^3/uL (4.0-11.0) Red Blood Count 4.16 x10^6/uL (4.30-5.70) Hemoglobin 13.4 g/dL (13.0-17.5) Hematocrit 39.7 % (39.0-53.0) Mean Corpuscular Volume 96 fL (79-100) Mean Corpuscular Hemoglobin 32 pg (25-35) Mean Corpuscular Hemoglobin Concent 34 g/dL (31-37) Red Cell Distribution Width 13.8 % (11.5-14.5) Platelet Count 211 x10^3/uL (140-400) Neutrophils (%) (Auto) 85 % (31-73) Lymphocytes (%) (Auto) 8 % (24-48) Monocytes (%) (Auto) 6 % (0-9) Eosinophils (%) (Auto) 0 % (0-3) Basophils (%) (Auto) 1 % (0-3) Neutrophils # (Auto) 5.5 x10^3/uL (1.8-7.7) Lymphocytes # (Auto) 0.6 x10^3/uL (1.0-4.8) Monocytes # (Auto) 0.4 x10^3/uL (0.0-1.1) Eosinophils # (Auto) 0.0 x10^3/uL (0.0-0.7) Basophils # (Auto) 0.0 x10^3/uL (0.0-0.2) D-Dimer (Zoila) 5.78 ug/mlFEU (0.00-0.50) Sodium Level 135 mmol/L (136-145) Potassium Level 5.0 mmol/L (3.5-5.1) Chloride Level 97 mmol/L (98-107) Carbon Dioxide Level 25 mmol/L (21-32) Anion Gap 13 (6-14) Blood Urea Nitrogen 36 mg/dL (8-26) Creatinine 1.5 mg/dL (0.7-1.3) Estimated GFR (Cockcroft-Gault) 45.9 BUN/Creatinine Ratio 24 (6-20) Glucose Level 298 mg/dL (70-99) Calcium Level 9.4 mg/dL (8.5-10.1) Total Bilirubin 0.4 mg/dL (0.2-1.0) Aspartate Amino Transf (AST/SGOT) 26 U/L (15-37) Alanine Aminotransferase (ALT/SGPT) 21 U/L (16-63) Alkaline Phosphatase 89 U/L (46-116) Total Protein 7.6 g/dL (6.4-8.2) Albumin 3.4 g/dL (3.4-5.0) Albumin/Globulin Ratio 0.8 (1.0-1.7) Lipase 128 U/L (73-393) Glucose (Fingerstick) 295 mg/dL (70-99) 312 mg/dL (70-99) 274 mg/dL (70-99) Test 05/09/19 00:52 05/09/19 01:53 05/09/19 02:55 05/09/19 03:53 Glucose (Fingerstick) 254 mg/dL (70-99) 226 mg/dL (70-99) 167 mg/dL (70-99) 148 mg/dL (70-99) Test 05/09/19 04:54 05/09/19 05:35 05/09/19 05:57 05/09/19 06:59 Glucose (Fingerstick) 123 mg/dL (70-99) 119 mg/dL (70-99) 118 mg/dL (70-99) White Blood Count 2.5 x10^3/uL (4.0-11.0) Red Blood Count 3.22 x10^6/uL (4.30-5.70) Hemoglobin 10.3 g/dL (13.0-17.5) Hematocrit 31.1 % (39.0-53.0) Mean Corpuscular Volume 96 fL (79-100) Mean Corpuscular Hemoglobin 32 pg (25-35) Mean Corpuscular Hemoglobin Concent 33 g/dL (31-37) Red Cell Distribution Width 13.6 % (11.5-14.5) Platelet Count 138 x10^3/uL (140-400) Neutrophils (%) (Auto) 74 % (31-73) Lymphocytes (%) (Auto) 12 % (24-48) Monocytes (%) (Auto) 14 % (0-9) Eosinophils (%) (Auto) 0 % (0-3) Basophils (%) (Auto) 0 % (0-3) Neutrophils # (Auto) 1.9 x10^3/uL (1.8-7.7) Lymphocytes # (Auto) 0.3 x10^3/uL (1.0-4.8) Monocytes # (Auto) 0.3 x10^3/uL (0.0-1.1) Eosinophils # (Auto) 0.0 x10^3/uL (0.0-0.7) Basophils # (Auto) 0.0 x10^3/uL (0.0-0.2) Segmented Neutrophils % 45 % (35-66) Band Neutrophils % 30 % (0-9) Lymphocytes % 12 % (24-48) Atypical Lymphocytes % (Manual) 2 % (0-0) Monocytes % 10 % (0-10) Metamyelocytes % 1 % (0-0) Platelet Estimate Decreased (ADEQUATE) Large Platelets Present Sodium Level 141 mmol/L (136-145) Potassium Level 5.2 mmol/L (3.5-5.1) Chloride Level 106 mmol/L (98-107) Carbon Dioxide Level 25 mmol/L (21-32) Anion Gap 10 (6-14) Blood Urea Nitrogen 44 mg/dL (8-26) Creatinine 2.3 mg/dL (0.7-1.3) Estimated GFR (Cockcroft-Gault) 28.0 Glucose Level 129 mg/dL (70-99) Calcium Level 8.1 mg/dL (8.5-10.1) Test 05/09/19 09:23 05/09/19 10:15 05/09/19 10:26 Glucose (Fingerstick) 169 mg/dL (70-99) 200 mg/dL (70-99) Sodium Level 139 mmol/L (136-145) Potassium Level 5.7 mmol/L (3.5-5.1) Chloride Level 104 mmol/L (98-107) Carbon Dioxide Level 26 mmol/L (21-32) Anion Gap 9 (6-14) Blood Urea Nitrogen 46 mg/dL (8-26) Creatinine 2.5 mg/dL (0.7-1.3) Estimated GFR (Cockcroft-Gault) 25.4 BUN/Creatinine Ratio 18 (6-20) Glucose Level 197 mg/dL (70-99) Calcium Level 7.6 mg/dL (8.5-10.1) Phosphorus Level 3.0 mg/dL (2.6-4.7) Magnesium Level 1.7 mg/dL (1.8-2.4) Total Bilirubin 0.4 mg/dL (0.2-1.0) Aspartate Amino Transf (AST/SGOT) 110 U/L (15-37) Alanine Aminotransferase (ALT/SGPT) 50 U/L (16-63) Alkaline Phosphatase 43 U/L (46-116) Total Protein 5.5 g/dL (6.4-8.2) Albumin 2.6 g/dL (3.4-5.0) Albumin/Globulin Ratio 0.9 (1.0-1.7) Medications Active Scripts Medications Dose Route/Sig Max Daily Dose Days Date Category Venlafaxine Hcl 75 Mg Tablet Unknown Dose PO DAILY 02/18/19 Reported Simvastatin 10 Mg Tablet 10 Mg PO DAILY 02/18/19 Reported Metformin Hcl 1,000 Mg Tablet 1,000 Mg PO BIDWMEALS 02/18/19 Reported Meloxicam 15 Mg Tablet Unknown Dose PO DAILY 02/18/19 Reported Lisinopril 10 Mg Tablet Unknown Dose PO DAILY 02/18/19 Reported Humalog (Insulin Lispro) 100 Unit/1 Ml Cartridge 100 Unit SQ 02/18/19 Reported Sinemet 25-100 Mg Tablet (Carbidopa/Levodopa) 1 Each Tablet 1 Tab PO TID 02/18/19 Reported Impression . FULL NOTE DICTATED THANKS SUPPORT FOR RESP FAILURE/SEPSIS POA AND AECOPD TG RAZO MD May 09, 2019 11:48
--- NOTE | 2019-05-09 12:24 | PDOC4 ---
PROCEDURE Procedure BRONCH MUCUS PLUGGING LLL NO ENDO BRONCHIAL LESIO WILL AWAIT BAL NO COMPLICATIONS THIS REPORT BELONGS TO [id number] DICTATED ON WRONG PATIENT TG RAZO MD May 09, 2019 12:24
[2019-05-09] MEDS: PANTOPRAZOLE IV PUSH 40 MG VIAL. IVP SCH (12:27)
[2019-05-09] MEDS: IV DEXTROSE 5 %-0.45 % NACL 1,000 ML IV SCH ×2 (12:28→13:42)
--- NOTE | 2019-05-09 12:31 | NUR ---
SS following for discharge planning. SS reviewed pt chart. Pt is from home with spouse and is currently requiring oxygen support. SS will continue to follow for discharge planning.
--- NOTE | 2019-05-09 12:44 | OP ---
DATE OF SURGERY: 05/09/2019 ATTENDING PHYSICIAN: Lam Xie MD. PROCEDURE: Bronchoscopy, bronchoalveolar lavage, left lower lobe. INDICATIONS: The patient with acute respiratory failure, chest x-ray revealing opacity on the left, undergoing a diagnostic bronchoscopy. Risks, benefits, and alternatives reviewed with the patient, he consented. DESCRIPTION OF PROCEDURE: A timeout was performed prior to sedation. Vital signs and O2 saturation were maintained within normal limits throughout the procedure. The bronchoscope was passed through the orally placed endotracheal tube. The endotracheal tube was properly positioned above the konrad. Upon inspecting the right and left segments, the left lowest segment had thick mucus plugging up the lower segment. A lavage was performed of the left lower lobe after clearing the mucus with saline. On the right side, it was pretty much clear. FINDINGS: 1. Properly positioned endotracheal tube. 2. Mucus plugging on the left basal segment. PLAN: We will await BAL. Risks, benefits, and alternatives reviewed with the patient's family who consented. TG RAZO MD DR: LEILA/nts JOB#: [id number] / [id number]
[2019-05-09] MEDS ORDERED: NOREPINEPHRIN 8MG/250ML PREMIX 250 ML IV PRN ×2 (12:45)
[2019-05-09 13:36] LABS: D-DIMER 6.91 ug/mlFEU (0.00-0.50)
[2019-05-09] MEDS: HYDROmorphone 2 MG/ML VIAL IV PRN ×2 (14:21→22:31)
[2019-05-09] MEDS ORDERED: DEXTROSE 50% 25 GM / 50ML DISP.SYRIN. IV PRN (15:30)
[2019-05-09] MEDS ORDERED: INSULIN LISPRO 300 UNITS/3 ML VIAL. SQ SCH (17:00)
--- NOTE | 2019-05-09 17:09 | RAD ---
Bilateral lower extremity venous duplex study 05/09/2019 Clinical History: Bilateral leg swelling.. Technique: Using a combination of real time ultrasound imaging and color-flow and pulse Doppler imaging techniques along with graded compression and augmentation, duplex evaluation of the deep venous system of the both lower extremities was performed. Multiple images were obtained. Findings: There is no sonographic evidence of deep venous thrombosis involving the visualized deep venous structures of either lower extremity. A 4.2 cm popliteal cyst is seen posterior to the right knee. Impression: There is no sonographic evidence of deep venous thrombosis involving the visualized deep venous structures of either lower extremity. Electronically signed by: Marv Clark MD (05/09/2019 5:06 PM) [facility]
[2019-05-09] MEDS: FLUCONAZOLE 200MG/100ML PREMIX 100 ML IV SCH (21:56)
[2019-05-09 22:41] LABS: CALCIUM 7.7 mg/dL (8.5-10.1); CREATININE 3.1 mg/dL (0.7-1.3); GFR 19.8; POTASSIUM 5.8 mmol/L (3.5-5.1)
[2019-05-10] VITALS (24 sets, daily range): BP systolic 102–179; BP diastolic 46–84
[2019-05-10] MEDS: PIPERACILLIN/TAZOBACTAM 3.375 GM in IV NORMAL SALINE 50ML 50 ML IV SCH ×5 (00:03→23:53)
[2019-05-10] MEDS: INSULIN LISPRO 300 UNITS/3 ML VIAL. SQ SCH ×5 (00:04→23:53)
--- NOTE | 2019-05-10 00:11 | CONS ---
DATE OF CONSULTATION: 05/09/2019 ATTENDING PHYSICIAN: Lam Xie MD REASON FOR CONSULTATION: The patient seen in pulmonary consultation at the request of Dr. Hickman for management of respiratory failure, expected status post exploratory laparotomy, utilizing noninvasive ventilation. HISTORY OF PRESENT ILLNESS: The patient is a 73-year-old male with acute onset of right-sided mid abdominal pain, nausea, vomiting, started one hour prior to arrival. He had several episodes of vomiting since the onset. The patient was evaluated in the Emergency Room, underwent imaging studies revealing some free air in the abdomen. He subsequently underwent exploratory laparotomy by Dr. Hickman, revealing evidence of a perforated duodenal ulcer. He underwent diagnostic laparoscopy with open laparotomy and closure of a duodenal ulcer with a Dawood patch. The patient postoperatively was transferred to the intensive care unit, requiring BiPAP. He is currently on a Venturi mask. His chest x-ray was reviewed. I do not appreciate any new infiltrates. White count was 2.5. He is currently receiving support with Venturi mask. He has been hypotensive, on some norepinephrine. In addition, he has received Zosyn. PAST MEDICAL HISTORY: According to his is remarkable for COPD, but does not experience acute exacerbation. He was smoking up until approximately last Sunday, at which time he had shoulder surgery and quit. Otherwise, he has a history of hypertension. PAST SURGICAL HISTORY: Postop day #3 for right shoulder surgery. FAMILY HISTORY: Noncontributory. SOCIAL HISTORY: He quit tobacco upon his recent admission. ALLERGIES: LISTED TO SULFA, CIPROFLOXACIN, CODEINE, SULFAMETHOXAZOLE AND TRIMETHOPRIM. MEDICATIONS: List from home was reviewed. PHYSICAL EXAMINATION: GENERAL: The patient was in the intensive care unit requiring Venturi mask at 40% to maintain saturations above 92%. VITAL SIGNS: T-max yesterday was 100.0. HEENT: Eyes, the sclerae were nonicteric. NECK: Jugular venous distention could not be assessed secondary to body habitus. CHEST: Full expansion. LUNGS: Scattered rhonchi with no wheezes, poor airway flow. CARDIOVASCULAR: Regular rate and rhythm with S1, S2, no S3. ABDOMEN: Soft, nondistended. Diffuse tenderness. EXTREMITIES: No clubbing, cyanosis or pitting edema. LABORATORY DATA: Chest x-ray as indicated above. Labs as indicated above. IMPRESSION: 1. Expected acute hypoxemic respiratory failure status post repair of a perforated duodenal ulcer. 2. Status post laparoscopy with open laparotomy for closure of a duodenal ulcer with Dawood patch. 3. Acute exacerbation of chronic obstructive pulmonary disease. 4. Tobacco dependence. 5. Hypertension. 6. Recent right shoulder repair. 7. Hypotension. 8. Fever. 9. Possible sepsis present upon admission. PLAN: 1. Continue current support with p.r.n. BiPAP. 2. Venturi mask. 3. Pain management. 4. IV antibiotics. 5. DVT and GI prophylaxis. 6. Titrate Levophed off. I do appreciate the privilege in sharing in the patient's care. TG RAZO MD DR: LEILA/kaye JOB#: [id number] / [id number]
--- NOTE | 2019-05-10 03:24 | NUR ---
Pt awakened mildly confused and pulling at everything. O2 mask removed and disassembled and pulling at IV site when staff entered room. O2 sat 84%. Mask re-assembled and replaced on pt. O2 sat now 96%. Cough continues, though no sputum expectorated yet.
--- NOTE | 2019-05-10 06:35 | PDOC ---
PULMONARY PROGRESS NOTES Subjective on vm 50% fi02, has more cough, no sputum, sob better, has abd pain Vitals Vital Signs Date Time Temp Pulse Resp B/P (MAP) Pulse Ox O2 Delivery O2 Flow Rate FiO2 05/10/19 06:00 95 24 135/68 (90) 95 Venturi Mask 05/10/19 04:00 15.0 05/10/19 04:00 99.2 99.2 Comments ros as mentioned as above other sys otherwise neg ROS: No Chest Pain General: Alert, Oriented X4 HEENT: Other (nc at perrl nose throat clear neck no lad no thyromegaly) Lungs: Wheezing Cardiovascular: S1, S2 Abdomen: Soft, Non-tender, Other (no mass) Neuro Exam: Alert Extremities: No Edema Skin: Warm Labs Laboratory Tests Test 05/08/19 16:44 05/08/19 20:43 05/08/19 22:48 05/08/19 23:53 White Blood Count 6.5 x10^3/uL (4.0-11.0) Red Blood Count 4.16 x10^6/uL (4.30-5.70) Hemoglobin 13.4 g/dL (13.0-17.5) Hematocrit 39.7 % (39.0-53.0) Mean Corpuscular Volume 96 fL (79-100) Mean Corpuscular Hemoglobin 32 pg (25-35) Mean Corpuscular Hemoglobin Concent 34 g/dL (31-37) Red Cell Distribution Width 13.8 % (11.5-14.5) Platelet Count 211 x10^3/uL (140-400) Neutrophils (%) (Auto) 85 % (31-73) Lymphocytes (%) (Auto) 8 % (24-48) Monocytes (%) (Auto) 6 % (0-9) Eosinophils (%) (Auto) 0 % (0-3) Basophils (%) (Auto) 1 % (0-3) Neutrophils # (Auto) 5.5 x10^3/uL (1.8-7.7) Lymphocytes # (Auto) 0.6 x10^3/uL (1.0-4.8) Monocytes # (Auto) 0.4 x10^3/uL (0.0-1.1) Eosinophils # (Auto) 0.0 x10^3/uL (0.0-0.7) Basophils # (Auto) 0.0 x10^3/uL (0.0-0.2) D-Dimer (Zoila) 5.78 ug/mlFEU (0.00-0.50) Sodium Level 135 mmol/L (136-145) Potassium Level 5.0 mmol/L (3.5-5.1) Chloride Level 97 mmol/L (98-107) Carbon Dioxide Level 25 mmol/L (21-32) Anion Gap 13 (6-14) Blood Urea Nitrogen 36 mg/dL (8-26) Creatinine 1.5 mg/dL (0.7-1.3) Estimated GFR (Cockcroft-Gault) 45.9 BUN/Creatinine Ratio 24 (6-20) Glucose Level 298 mg/dL (70-99) Calcium Level 9.4 mg/dL (8.5-10.1) Total Bilirubin 0.4 mg/dL (0.2-1.0) Aspartate Amino Transf (AST/SGOT) 26 U/L (15-37) Alanine Aminotransferase (ALT/SGPT) 21 U/L (16-63) Alkaline Phosphatase 89 U/L (46-116) Total Protein 7.6 g/dL (6.4-8.2) Albumin 3.4 g/dL (3.4-5.0) Albumin/Globulin Ratio 0.8 (1.0-1.7) Lipase 128 U/L (73-393) Glucose (Fingerstick) 295 mg/dL (70-99) 312 mg/dL (70-99) 274 mg/dL (70-99) Test 05/09/19 00:52 05/09/19 01:53 05/09/19 02:55 05/09/19 03:53 Glucose (Fingerstick) 254 mg/dL (70-99) 226 mg/dL (70-99) 167 mg/dL (70-99) 148 mg/dL (70-99) Test 05/09/19 04:54 05/09/19 05:35 05/09/19 05:57 05/09/19 06:59 Glucose (Fingerstick) 123 mg/dL (70-99) 119 mg/dL (70-99) 118 mg/dL (70-99) White Blood Count 2.5 x10^3/uL (4.0-11.0) Red Blood Count 3.22 x10^6/uL (4.30-5.70) Hemoglobin 10.3 g/dL (13.0-17.5) Hematocrit 31.1 % (39.0-53.0) Mean Corpuscular Volume 96 fL (79-100) Mean Corpuscular Hemoglobin 32 pg (25-35) Mean Corpuscular Hemoglobin Concent 33 g/dL (31-37) Red Cell Distribution Width 13.6 % (11.5-14.5) Platelet Count 138 x10^3/uL (140-400) Neutrophils (%) (Auto) 74 % (31-73) Lymphocytes (%) (Auto) 12 % (24-48) Monocytes (%) (Auto) 14 % (0-9) Eosinophils (%) (Auto) 0 % (0-3) Basophils (%) (Auto) 0 % (0-3) Neutrophils # (Auto) 1.9 x10^3/uL (1.8-7.7) Lymphocytes # (Auto) 0.3 x10^3/uL (1.0-4.8) Monocytes # (Auto) 0.3 x10^3/uL (0.0-1.1) Eosinophils # (Auto) 0.0 x10^3/uL (0.0-0.7) Basophils # (Auto) 0.0 x10^3/uL (0.0-0.2) Segmented Neutrophils % 45 % (35-66) Band Neutrophils % 30 % (0-9) Lymphocytes % 12 % (24-48) Atypical Lymphocytes % (Manual) 2 % (0-0) Monocytes % 10 % (0-10) Metamyelocytes % 1 % (0-0) Platelet Estimate Decreased (ADEQUATE) Large Platelets Present Sodium Level 141 mmol/L (136-145) Potassium Level 5.2 mmol/L (3.5-5.1) Chloride Level 106 mmol/L (98-107) Carbon Dioxide Level 25 mmol/L (21-32) Anion Gap 10 (6-14) Blood Urea Nitrogen 44 mg/dL (8-26) Creatinine 2.3 mg/dL (0.7-1.3) Estimated GFR (Cockcroft-Gault) 28.0 Glucose Level 129 mg/dL (70-99) Calcium Level 8.1 mg/dL (8.5-10.1) Test 05/09/19 08:06 05/09/19 09:23 05/09/19 10:15 05/09/19 10:26 Glucose (Fingerstick) 135 mg/dL (70-99) 169 mg/dL (70-99) 200 mg/dL (70-99) Fibrinogen 729 mg/dL (200-440) D-Dimer (Zoila) 6.91 ug/mlFEU (0.00-0.50) Sodium Level 139 mmol/L (136-145) Potassium Level 5.7 mmol/L (3.5-5.1) Chloride Level 104 mmol/L (98-107) Carbon Dioxide Level 26 mmol/L (21-32) Anion Gap 9 (6-14) Blood Urea Nitrogen 46 mg/dL (8-26) Creatinine 2.5 mg/dL (0.7-1.3) Estimated GFR (Cockcroft-Gault) 25.4 BUN/Creatinine Ratio 18 (6-20) Glucose Level 197 mg/dL (70-99) Calcium Level 7.6 mg/dL (8.5-10.1) Phosphorus Level 3.0 mg/dL (2.6-4.7) Magnesium Level 1.7 mg/dL (1.8-2.4) Total Bilirubin 0.4 mg/dL (0.2-1.0) Aspartate Amino Transf (AST/SGOT) 110 U/L (15-37) Alanine Aminotransferase (ALT/SGPT) 50 U/L (16-63) Alkaline Phosphatase 43 U/L (46-116) Total Protein 5.5 g/dL (6.4-8.2) Albumin 2.6 g/dL (3.4-5.0) Albumin/Globulin Ratio 0.9 (1.0-1.7) Procalcitonin 35.82 ng/mL (0.00-0.10) Test 05/09/19 10:30 05/09/19 10:49 05/09/19 11:35 05/09/19 12:34 Sodium Level 140 mmol/L (136-145) Potassium Level 5.8 mmol/L (3.5-5.1) Chloride Level 106 mmol/L (98-107) Carbon Dioxide Level 23 mmol/L (21-32) Anion Gap 11 (6-14) Blood Urea Nitrogen 53 mg/dL (8-26) Creatinine 3.1 mg/dL (0.7-1.3) Estimated GFR (Cockcroft-Gault) 19.8 Glucose Level 190 mg/dL (70-99) Calcium Level 7.7 mg/dL (8.5-10.1) Glucose (Fingerstick) 176 mg/dL (70-99) 175 mg/dL (70-99) 161 mg/dL (70-99) Test 05/09/19 13:40 05/09/19 14:23 05/09/19 16:13 05/09/19 23:58 Ionized Calcium 0.98 mmol/L (1.13-1.32) Glucose (Fingerstick) 129 mg/dL (70-99) 167 mg/dL (70-99) 169 mg/dL (70-99) Test 05/10/19 06:06 Glucose (Fingerstick) 152 mg/dL (70-99) Laboratory Tests Test 05/09/19 06:59 05/09/19 08:06 05/09/19 09:23 05/09/19 10:15 Glucose (Fingerstick) 118 mg/dL (70-99) 135 mg/dL (70-99) 169 mg/dL (70-99) Fibrinogen 729 mg/dL (200-440) D-Dimer (Zoila) 6.91 ug/mlFEU (0.00-0.50) Sodium Level 139 mmol/L (136-145) Potassium Level 5.7 mmol/L (3.5-5.1) Chloride Level 104 mmol/L (98-107) Carbon Dioxide Level 26 mmol/L (21-32) Anion Gap 9 (6-14) Blood Urea Nitrogen 46 mg/dL (8-26) Creatinine 2.5 mg/dL (0.7-1.3) Estimated GFR (Cockcroft-Gault) 25.4 BUN/Creatinine Ratio 18 (6-20) Glucose Level 197 mg/dL (70-99) Calcium Level 7.6 mg/dL (8.5-10.1) Phosphorus Level 3.0 mg/dL (2.6-4.7) Magnesium Level 1.7 mg/dL (1.8-2.4) Total Bilirubin 0.4 mg/dL (0.2-1.0) Aspartate Amino Transf (AST/SGOT) 110 U/L (15-37) Alanine Aminotransferase (ALT/SGPT) 50 U/L (16-63) Alkaline Phosphatase 43 U/L (46-116) Total Protein 5.5 g/dL (6.4-8.2) Albumin 2.6 g/dL (3.4-5.0) Albumin/Globulin Ratio 0.9 (1.0-1.7) Procalcitonin 35.82 ng/mL (0.00-0.10) Test 05/09/19 10:26 05/09/19 10:30 05/09/19 10:49 05/09/19 11:35 Glucose (Fingerstick) 200 mg/dL (70-99) 176 mg/dL (70-99) 175 mg/dL (70-99) Sodium Level 140 mmol/L (136-145) Potassium Level 5.8 mmol/L (3.5-5.1) Chloride Level 106 mmol/L (98-107) Carbon Dioxide Level 23 mmol/L (21-32) Anion Gap 11 (6-14) Blood Urea Nitrogen 53 mg/dL (8-26) Creatinine 3.1 mg/dL (0.7-1.3) Estimated GFR (Cockcroft-Gault) 19.8 Glucose Level 190 mg/dL (70-99) Calcium Level 7.7 mg/dL (8.5-10.1) Test 05/09/19 12:34 05/09/19 13:40 05/09/19 14:23 05/09/19 16:13 Glucose (Fingerstick) 161 mg/dL (70-99) 129 mg/dL (70-99) 167 mg/dL (70-99) Ionized Calcium 0.98 mmol/L (1.13-1.32) Test 05/09/19 23:58 05/10/19 06:06 Glucose (Fingerstick) 169 mg/dL (70-99) 152 mg/dL (70-99) Medications Active Scripts Medications Dose Route/Sig Max Daily Dose Days Date Category Venlafaxine Hcl 75 Mg Tablet Unknown Dose PO DAILY 02/18/19 Reported Simvastatin 10 Mg Tablet 10 Mg PO DAILY 02/18/19 Reported Metformin Hcl 1,000 Mg Tablet 1,000 Mg PO BIDWMEALS 02/18/19 Reported Meloxicam 15 Mg Tablet Unknown Dose PO DAILY 02/18/19 Reported Lisinopril 10 Mg Tablet Unknown Dose PO DAILY 02/18/19 Reported Humalog (Insulin Lispro) 100 Unit/1 Ml Cartridge 100 Unit SQ 02/18/19 Reported Sinemet 25-100 Mg Tablet (Carbidopa/Levodopa) 1 Each Tablet 1 Tab PO TID 02/18/19 Reported Comments cxr, ? mild atelectasis Impression . IMPRESSION: 1. Expected acute hypoxemic respiratory failure status post repair of a perforated duodenal ulcer. 2. Status post laparoscopy with open laparotomy for closure of a duodenal ulcer with Dawood patch. 3. Acute exacerbation of chronic obstructive pulmonary disease. 4. Tobacco dependence. 5. Hypertension. 6. Recent right shoulder repair. 7. Hypotension. 8. Fever. 9. Possible sepsis present upon admission. Plan . PLAN: 1. Continue current support with p.r.n. BiPAP. 2. titrate fio2 to keep sat 92% 3. Pain management. 4. IV antibiotics. 5. DVT and GI prophylaxis. 6. add BD, ICS 7. start IS discussed w rn, pt OPAL YANEZ MD May 10, 2019 06:35
[2019-05-10 07:12] LABS: BASO % 0 % (0-3); EOS # 0.1 x10^3/uL (0.0-0.7); EOS % 1 % (0-3); HEMATOCRIT 29.2 % (39.0-53.0); HEMOGLOBIN 9.7 g/dL (13.0-17.5); LYMPH # 0.5 x10^3/uL (1.0-4.8); LYMPH % 7 % (24-48); MEAN CORPUSCULAR HEMOGLOBIN 32 pg (25-35); MEAN CORPUSCULAR HGB CONC 33 g/dL (31-37); MEAN CORPUSCULAR VOLUME 96 fL (79-100); MONO # 0.6 x10^3/uL (0.0-1.1); MONO % 9 % (0-9); NEUT % 83 % (31-73); PLATELET COUNT 176 x10^3/uL (140-400); RED BLOOD COUNT 3.05 x10^6/uL (4.30-5.70); RED CELL DISTRIBUTION WIDTH 14.1 % (11.5-14.5); WHITE BLOOD COUNT 7.1 x10^3/uL (4.0-11.0)
[2019-05-10 07:19] LABS: ALBUMIN 2.4 g/dL (3.4-5.0); ALBUMIN/GLOBULIN RATIO 0.6 (1.0-1.7); CALCIUM 8.1 mg/dL (8.5-10.1); CREATININE 2.9 mg/dL (0.7-1.3); GFR 21.4; TOTAL BILIRUBIN 0.4 mg/dL (0.2-1.0); TOTAL PROTEIN 6.3 g/dL (6.4-8.2)
[2019-05-10 07:27] LABS: POTASSIUM 5.3 mmol/L (3.5-5.1)
[2019-05-10] MEDS: BUDESONIDE 0.5 MG/2 ML NEBU. NEB SCH ×2 (07:35→20:48)
[2019-05-10] MEDS: IPRATRPIUM/ALBUTEROL 0.5/2.5MG 3 ML NEBU. NEB SCH ×4 (07:35→20:48)
[2019-05-10] MEDS: PANTOPRAZOLE IV PUSH 40 MG VIAL. IVP SCH (08:27)
[2019-05-10] MEDS: HYDROmorphone 2 MG/ML VIAL IV PRN ×3 (08:28→22:06)
--- NOTE | 2019-05-10 08:57 | PDOC ---
PROGRESS NOTES History of Present Illness History of Present Illness VTE Prophylaxis Ordered VTE Prophylaxis Devices: Contraindicated VTE Pharmacological Prophylaxi: Contraindicated Assessment/Plan Assessment/Plan impression RESPIRATORY FAILURE SEVERE SEPSIS severe protein-caloric malnutrition Perforated viscus with free air peritonitis //Perforated duodenal ulcer Extraluminal collections of air are seen within the right upper quadrant of the abdomen. A small amount of free air is seen within the upper abdomen. Small amount of ascites is seen within the abdomen and pelvis. /// bowel perforation.// PERITONITIS plan ADMIT ICU Consult gen surgery nephrology consult PULM CONSULT ID FOLLOWING sepsis protocol IV ANTIBIOTICS, iv zosyn, FLUCONAZOLE BLOOD CULTURE VENTURI MASK SUPPORT BRONCH per pulm Diagnostic laparoscopy with open laparotomy and closure of duodenal ulcer and Dawood patch 10-24 34 MIN CC TIME Vitals Vitals Vital Signs Date Time Temp Pulse Resp B/P (MAP) Pulse Ox O2 Delivery O2 Flow Rate FiO2 05/10/19 08:28 20 95 mask 15.0 05/10/19 06:00 95 135/68 (90) 05/10/19 04:00 99.2 99.2 Physical Exam General: Alert, Oriented X3, Cooperative, No acute distress, mild distress Heart: Regular rate, No murmurs Lungs: Wheezing Abdomen: Other ( MACKENZIE drain intact with bilious blood-tinged drainage)) Extremities: No cyanosis Skin: No significant lesion Labs LABS Laboratory Tests Test 05/09/19 09:23 05/09/19 10:15 05/09/19 10:26 05/09/19 10:30 Glucose (Fingerstick) 169 mg/dL (70-99) 200 mg/dL (70-99) Fibrinogen 729 mg/dL (200-440) D-Dimer (Zoila) 6.91 ug/mlFEU (0.00-0.50) Sodium Level 139 mmol/L (136-145) 140 mmol/L (136-145) Potassium Level 5.7 mmol/L (3.5-5.1) 5.8 mmol/L (3.5-5.1) Chloride Level 104 mmol/L (98-107) 106 mmol/L (98-107) Carbon Dioxide Level 26 mmol/L (21-32) 23 mmol/L (21-32) Anion Gap 9 (6-14) 11 (6-14) Blood Urea Nitrogen 46 mg/dL (8-26) 53 mg/dL (8-26) Creatinine 2.5 mg/dL (0.7-1.3) 3.1 mg/dL (0.7-1.3) Estimated GFR (Cockcroft-Gault) 25.4 19.8 BUN/Creatinine Ratio 18 (6-20) Glucose Level 197 mg/dL (70-99) 190 mg/dL (70-99) Calcium Level 7.6 mg/dL (8.5-10.1) 7.7 mg/dL (8.5-10.1) Phosphorus Level 3.0 mg/dL (2.6-4.7) Magnesium Level 1.7 mg/dL (1.8-2.4) Total Bilirubin 0.4 mg/dL (0.2-1.0) Aspartate Amino Transf (AST/SGOT) 110 U/L (15-37) Alanine Aminotransferase (ALT/SGPT) 50 U/L (16-63) Alkaline Phosphatase 43 U/L (46-116) Total Protein 5.5 g/dL (6.4-8.2) Albumin 2.6 g/dL (3.4-5.0) Albumin/Globulin Ratio 0.9 (1.0-1.7) Procalcitonin 35.82 ng/mL (0.00-0.10) Test 05/09/19 10:49 05/09/19 11:35 05/09/19 12:34 05/09/19 13:40 Glucose (Fingerstick) 176 mg/dL (70-99) 175 mg/dL (70-99) 161 mg/dL (70-99) Ionized Calcium 0.98 mmol/L (1.13-1.32) Test 05/09/19 14:23 05/09/19 16:13 05/09/19 23:58 05/10/19 05:40 Glucose (Fingerstick) 129 mg/dL (70-99) 167 mg/dL (70-99) 169 mg/dL (70-99) White Blood Count 7.1 x10^3/uL (4.0-11.0) Red Blood Count 3.05 x10^6/uL (4.30-5.70) Hemoglobin 9.7 g/dL (13.0-17.5) Hematocrit 29.2 % (39.0-53.0) Mean Corpuscular Volume 96 fL (79-100) Mean Corpuscular Hemoglobin 32 pg (25-35) Mean Corpuscular Hemoglobin Concent 33 g/dL (31-37) Red Cell Distribution Width 14.1 % (11.5-14.5) Platelet Count 176 x10^3/uL (140-400) Neutrophils (%) (Auto) 83 % (31-73) Lymphocytes (%) (Auto) 7 % (24-48) Monocytes (%) (Auto) 9 % (0-9) Eosinophils (%) (Auto) 1 % (0-3) Basophils (%) (Auto) 0 % (0-3) Neutrophils # (Auto) 6.0 x10^3/uL (1.8-7.7) Lymphocytes # (Auto) 0.5 x10^3/uL (1.0-4.8) Monocytes # (Auto) 0.6 x10^3/uL (0.0-1.1) Eosinophils # (Auto) 0.1 x10^3/uL (0.0-0.7) Basophils # (Auto) 0.0 x10^3/uL (0.0-0.2) Sodium Level 143 mmol/L (136-145) Potassium Level 5.3 mmol/L (3.5-5.1) Chloride Level 106 mmol/L (98-107) Carbon Dioxide Level 23 mmol/L (21-32) Anion Gap 14 (6-14) Blood Urea Nitrogen 54 mg/dL (8-26) Creatinine 2.9 mg/dL (0.7-1.3) Estimated GFR (Cockcroft-Gault) 21.4 BUN/Creatinine Ratio 19 (6-20) Glucose Level 163 mg/dL (70-99) Calcium Level 8.1 mg/dL (8.5-10.1) Total Bilirubin 0.4 mg/dL (0.2-1.0) Aspartate Amino Transf (AST/SGOT) 96 U/L (15-37) Alanine Aminotransferase (ALT/SGPT) 48 U/L (16-63) Alkaline Phosphatase 47 U/L (46-116) Total Protein 6.3 g/dL (6.4-8.2) Albumin 2.4 g/dL (3.4-5.0) Albumin/Globulin Ratio 0.6 (1.0-1.7) Test 05/10/19 06:06 Glucose (Fingerstick) 152 mg/dL (70-99) Assessment and Plan Assessmemt and Plan Problems Medical Problems: (1) Perforated intestine, nontraumatic Status: Acute Comment Review of Relevant I have reviewed the following items adriano (where applicable) has been applied. Labs Laboratory Tests Test 05/08/19 16:44 05/08/19 20:43 05/08/19 22:48 05/08/19 23:53 White Blood Count 6.5 x10^3/uL (4.0-11.0) Red Blood Count 4.16 x10^6/uL (4.30-5.70) Hemoglobin 13.4 g/dL (13.0-17.5) Hematocrit 39.7 % (39.0-53.0) Mean Corpuscular Volume 96 fL (79-100) Mean Corpuscular Hemoglobin 32 pg (25-35) Mean Corpuscular Hemoglobin Concent 34 g/dL (31-37) Red Cell Distribution Width 13.8 % (11.5-14.5) Platelet Count 211 x10^3/uL (140-400) Neutrophils (%) (Auto) 85 % (31-73) Lymphocytes (%) (Auto) 8 % (24-48) Monocytes (%) (Auto) 6 % (0-9) Eosinophils (%) (Auto) 0 % (0-3) Basophils (%) (Auto) 1 % (0-3) Neutrophils # (Auto) 5.5 x10^3/uL (1.8-7.7) Lymphocytes # (Auto) 0.6 x10^3/uL (1.0-4.8) Monocytes # (Auto) 0.4 x10^3/uL (0.0-1.1) Eosinophils # (Auto) 0.0 x10^3/uL (0.0-0.7) Basophils # (Auto) 0.0 x10^3/uL (0.0-0.2) D-Dimer (Zoila) 5.78 ug/mlFEU (0.00-0.50) Sodium Level 135 mmol/L (136-145) Potassium Level 5.0 mmol/L (3.5-5.1) Chloride Level 97 mmol/L (98-107) Carbon Dioxide Level 25 mmol/L (21-32) Anion Gap 13 (6-14) Blood Urea Nitrogen 36 mg/dL (8-26) Creatinine 1.5 mg/dL (0.7-1.3) Estimated GFR (Cockcroft-Gault) 45.9 BUN/Creatinine Ratio 24 (6-20) Glucose Level 298 mg/dL (70-99) Calcium Level 9.4 mg/dL (8.5-10.1) Total Bilirubin 0.4 mg/dL (0.2-1.0) Aspartate Amino Transf (AST/SGOT) 26 U/L (15-37) Alanine Aminotransferase (ALT/SGPT) 21 U/L (16-63) Alkaline Phosphatase 89 U/L (46-116) Total Protein 7.6 g/dL (6.4-8.2) Albumin 3.4 g/dL (3.4-5.0) Albumin/Globulin Ratio 0.8 (1.0-1.7) Lipase 128 U/L (73-393) Glucose (Fingerstick) 295 mg/dL (70-99) 312 mg/dL (70-99) 274 mg/dL (70-99) Test 05/09/19 00:52 05/09/19 01:53 05/09/19 02:55 05/09/19 03:53 Glucose (Fingerstick) 254 mg/dL (70-99) 226 mg/dL (70-99) 167 mg/dL (70-99) 148 mg/dL (70-99) Test 05/09/19 04:54 05/09/19 05:35 05/09/19 05:57 05/09/19 06:59 Glucose (Fingerstick) 123 mg/dL (70-99) 119 mg/dL (70-99) 118 mg/dL (70-99) White Blood Count 2.5 x10^3/uL (4.0-11.0) Red Blood Count 3.22 x10^6/uL (4.30-5.70) Hemoglobin 10.3 g/dL (13.0-17.5) Hematocrit 31.1 % (39.0-53.0) Mean Corpuscular Volume 96 fL (79-100) Mean Corpuscular Hemoglobin 32 pg (25-35) Mean Corpuscular Hemoglobin Concent 33 g/dL (31-37) Red Cell Distribution Width 13.6 % (11.5-14.5) Platelet Count 138 x10^3/uL (140-400) Neutrophils (%) (Auto) 74 % (31-73) Lymphocytes (%) (Auto) 12 % (24-48) Monocytes (%) (Auto) 14 % (0-9) Eosinophils (%) (Auto) 0 % (0-3) Basophils (%) (Auto) 0 % (0-3) Neutrophils # (Auto) 1.9 x10^3/uL (1.8-7.7) Lymphocytes # (Auto) 0.3 x10^3/uL (1.0-4.8) Monocytes # (Auto) 0.3 x10^3/uL (0.0-1.1) Eosinophils # (Auto) 0.0 x10^3/uL (0.0-0.7) Basophils # (Auto) 0.0 x10^3/uL (0.0-0.2) Segmented Neutrophils % 45 % (35-66) Band Neutrophils % 30 % (0-9) Lymphocytes % 12 % (24-48) Atypical Lymphocytes % (Manual) 2 % (0-0) Monocytes % 10 % (0-10) Metamyelocytes % 1 % (0-0) Platelet Estimate Decreased (ADEQUATE) Large Platelets Present Sodium Level 141 mmol/L (136-145) Potassium Level 5.2 mmol/L (3.5-5.1) Chloride Level 106 mmol/L (98-107) Carbon Dioxide Level 25 mmol/L (21-32) Anion Gap 10 (6-14) Blood Urea Nitrogen 44 mg/dL (8-26) Creatinine 2.3 mg/dL (0.7-1.3) Estimated GFR (Cockcroft-Gault) 28.0 Glucose Level 129 mg/dL (70-99) Calcium Level 8.1 mg/dL (8.5-10.1) Test 05/09/19 08:06 05/09/19 09:23 05/09/19 10:15 05/09/19 10:26 Glucose (Fingerstick) 135 mg/dL (70-99) 169 mg/dL (70-99) 200 mg/dL (70-99) Fibrinogen 729 mg/dL (200-440) D-Dimer (Zoila) 6.91 ug/mlFEU (0.00-0.50) Sodium Level 139 mmol/L (136-145) Potassium Level 5.7 mmol/L (3.5-5.1) Chloride Level 104 mmol/L (98-107) Carbon Dioxide Level 26 mmol/L (21-32) Anion Gap 9 (6-14) Blood Urea Nitrogen 46 mg/dL (8-26) Creatinine 2.5 mg/dL (0.7-1.3) Estimated GFR (Cockcroft-Gault) 25.4 BUN/Creatinine Ratio 18 (6-20) Glucose Level 197 mg/dL (70-99) Calcium Level 7.6 mg/dL (8.5-10.1) Phosphorus Level 3.0 mg/dL (2.6-4.7) Magnesium Level 1.7 mg/dL (1.8-2.4) Total Bilirubin 0.4 mg/dL (0.2-1.0) Aspartate Amino Transf (AST/SGOT) 110 U/L (15-37) Alanine Aminotransferase (ALT/SGPT) 50 U/L (16-63) Alkaline Phosphatase 43 U/L (46-116) Total Protein 5.5 g/dL (6.4-8.2) Albumin 2.6 g/dL (3.4-5.0) Albumin/Globulin Ratio 0.9 (1.0-1.7) Procalcitonin 35.82 ng/mL (0.00-0.10) Test 05/09/19 10:30 05/09/19 10:49 05/09/19 11:35 05/09/19 12:34 Sodium Level 140 mmol/L (136-145) Potassium Level 5.8 mmol/L (3.5-5.1) Chloride Level 106 mmol/L (98-107) Carbon Dioxide Level 23 mmol/L (21-32) Anion Gap 11 (6-14) Blood Urea Nitrogen 53 mg/dL (8-26) Creatinine 3.1 mg/dL (0.7-1.3) Estimated GFR (Cockcroft-Gault) 19.8 Glucose Level 190 mg/dL (70-99) Calcium Level 7.7 mg/dL (8.5-10.1) Glucose (Fingerstick) 176 mg/dL (70-99) 175 mg/dL (70-99) 161 mg/dL (70-99) Test 05/09/19 13:40 05/09/19 14:23 05/09/19 16:13 05/09/19 23:58 Ionized Calcium 0.98 mmol/L (1.13-1.32) Glucose (Fingerstick) 129 mg/dL (70-99) 167 mg/dL (70-99) 169 mg/dL (70-99) Test 05/10/19 05:40 05/10/19 06:06 White Blood Count 7.1 x10^3/uL (4.0-11.0) Red Blood Count 3.05 x10^6/uL (4.30-5.70) Hemoglobin 9.7 g/dL (13.0-17.5) Hematocrit 29.2 % (39.0-53.0) Mean Corpuscular Volume 96 fL (79-100) Mean Corpuscular Hemoglobin 32 pg (25-35) Mean Corpuscular Hemoglobin Concent 33 g/dL (31-37) Red Cell Distribution Width 14.1 % (11.5-14.5) Platelet Count 176 x10^3/uL (140-400) Neutrophils (%) (Auto) 83 % (31-73) Lymphocytes (%) (Auto) 7 % (24-48) Monocytes (%) (Auto) 9 % (0-9) Eosinophils (%) (Auto) 1 % (0-3) Basophils (%) (Auto) 0 % (0-3) Neutrophils # (Auto) 6.0 x10^3/uL (1.8-7.7) Lymphocytes # (Auto) 0.5 x10^3/uL (1.0-4.8) Monocytes # (Auto) 0.6 x10^3/uL (0.0-1.1) Eosinophils # (Auto) 0.1 x10^3/uL (0.0-0.7) Basophils # (Auto) 0.0 x10^3/uL (0.0-0.2) Sodium Level 143 mmol/L (136-145) Potassium Level 5.3 mmol/L (3.5-5.1) Chloride Level 106 mmol/L (98-107) Carbon Dioxide Level 23 mmol/L (21-32) Anion Gap 14 (6-14) Blood Urea Nitrogen 54 mg/dL (8-26) Creatinine 2.9 mg/dL (0.7-1.3) Estimated GFR (Cockcroft-Gault) 21.4 BUN/Creatinine Ratio 19 (6-20) Glucose Level 163 mg/dL (70-99) Calcium Level 8.1 mg/dL (8.5-10.1) Total Bilirubin 0.4 mg/dL (0.2-1.0) Aspartate Amino Transf (AST/SGOT) 96 U/L (15-37) Alanine Aminotransferase (ALT/SGPT) 48 U/L (16-63) Alkaline Phosphatase 47 U/L (46-116) Total Protein 6.3 g/dL (6.4-8.2) Albumin 2.4 g/dL (3.4-5.0) Albumin/Globulin Ratio 0.6 (1.0-1.7) Glucose (Fingerstick) 152 mg/dL (70-99) Laboratory Tests Test 05/09/19 09:23 05/09/19 10:15 05/09/19 10:26 05/09/19 10:30 Glucose (Fingerstick) 169 mg/dL (70-99) 200 mg/dL (70-99) Fibrinogen 729 mg/dL (200-440) D-Dimer (Zoila) 6.91 ug/mlFEU (0.00-0.50) Sodium Level 139 mmol/L (136-145) 140 mmol/L (136-145) Potassium Level 5.7 mmol/L (3.5-5.1) 5.8 mmol/L (3.5-5.1) Chloride Level 104 mmol/L (98-107) 106 mmol/L (98-107) Carbon Dioxide Level 26 mmol/L (21-32) 23 mmol/L (21-32) Anion Gap 9 (6-14) 11 (6-14) Blood Urea Nitrogen 46 mg/dL (8-26) 53 mg/dL (8-26) Creatinine 2.5 mg/dL (0.7-1.3) 3.1 mg/dL (0.7-1.3) Estimated GFR (Cockcroft-Gault) 25.4 19.8 BUN/Creatinine Ratio 18 (6-20) Glucose Level 197 mg/dL (70-99) 190 mg/dL (70-99) Calcium Level 7.6 mg/dL (8.5-10.1) 7.7 mg/dL (8.5-10.1) Phosphorus Level 3.0 mg/dL (2.6-4.7) Magnesium Level 1.7 mg/dL (1.8-2.4) Total Bilirubin 0.4 mg/dL (0.2-1.0) Aspartate Amino Transf (AST/SGOT) 110 U/L (15-37) Alanine Aminotransferase (ALT/SGPT) 50 U/L (16-63) Alkaline Phosphatase 43 U/L (46-116) Total Protein 5.5 g/dL (6.4-8.2) Albumin 2.6 g/dL (3.4-5.0) Albumin/Globulin Ratio 0.9 (1.0-1.7) Procalcitonin 35.82 ng/mL (0.00-0.10) Test 05/09/19 10:49 05/09/19 11:35 05/09/19 12:34 05/09/19 13:40 Glucose (Fingerstick) 176 mg/dL (70-99) 175 mg/dL (70-99) 161 mg/dL (70-99) Ionized Calcium 0.98 mmol/L (1.13-1.32) Test 05/09/19 14:23 05/09/19 16:13 05/09/19 23:58 05/10/19 05:40 Glucose (Fingerstick) 129 mg/dL (70-99) 167 mg/dL (70-99) 169 mg/dL (70-99) White Blood Count 7.1 x10^3/uL (4.0-11.0) Red Blood Count 3.05 x10^6/uL (4.30-5.70) Hemoglobin 9.7 g/dL (13.0-17.5) Hematocrit 29.2 % (39.0-53.0) Mean Corpuscular Volume 96 fL (79-100) Mean Corpuscular Hemoglobin 32 pg (25-35) Mean Corpuscular Hemoglobin Concent 33 g/dL (31-37) Red Cell Distribution Width 14.1 % (11.5-14.5) Platelet Count 176 x10^3/uL (140-400) Neutrophils (%) (Auto) 83 % (31-73) Lymphocytes (%) (Auto) 7 % (24-48) Monocytes (%) (Auto) 9 % (0-9) Eosinophils (%) (Auto) 1 % (0-3) Basophils (%) (Auto) 0 % (0-3) Neutrophils # (Auto) 6.0 x10^3/uL (1.8-7.7) Lymphocytes # (Auto) 0.5 x10^3/uL (1.0-4.8) Monocytes # (Auto) 0.6 x10^3/uL (0.0-1.1) Eosinophils # (Auto) 0.1 x10^3/uL (0.0-0.7) Basophils # (Auto) 0.0 x10^3/uL (0.0-0.2) Sodium Level 143 mmol/L (136-145) Potassium Level 5.3 mmol/L (3.5-5.1) Chloride Level 106 mmol/L (98-107) Carbon Dioxide Level 23 mmol/L (21-32) Anion Gap 14 (6-14) Blood Urea Nitrogen 54 mg/dL (8-26) Creatinine 2.9 mg/dL (0.7-1.3) Estimated GFR (Cockcroft-Gault) 21.4 BUN/Creatinine Ratio 19 (6-20) Glucose Level 163 mg/dL (70-99) Calcium Level 8.1 mg/dL (8.5-10.1) Total Bilirubin 0.4 mg/dL (0.2-1.0) Aspartate Amino Transf (AST/SGOT) 96 U/L (15-37) Alanine Aminotransferase (ALT/SGPT) 48 U/L (16-63) Alkaline Phosphatase 47 U/L (46-116) Total Protein 6.3 g/dL (6.4-8.2) Albumin 2.4 g/dL (3.4-5.0) Albumin/Globulin Ratio 0.6 (1.0-1.7) Test 05/10/19 06:06 Glucose (Fingerstick) 152 mg/dL (70-99) Medications Current Medications Fentanyl Citrate (Fentanyl 2ml Vial) 50 mcg PRN Q15MIN PRN IV PAIN GREATER THAN 3/10 Last administered on 05/08/19at 19:27; Start 05/08/19 at 16:30; Stop 05/08/19 at 21:00; Status DC Sodium Chloride 1,000 ml @ 250 mls/hr Q4H IV Last administered on 05/08/19at 16:54; Start 05/08/19 at 16:19; Stop 05/08/19 at 20:18; Status DC Metoclopramide HCl (Reglan Vial) 10 mg 1X ONCE IVP Last administered on 05/08/19at 16:51; Start 05/08/19 at 17:00; Stop 05/08/19 at 17:01; Status DC Diphenhydramine HCl (Benadryl) 25 mg 1X ONCE IVP Last administered on 05/08/19at 16:51; Start 05/08/19 at 17:00; Stop 05/08/19 at 17:01; Status DC Iohexol (Omnipaque 350 Mg/ml) 90 ml 1X ONCE IV Last administered on 05/08/19at 17:45; Start 05/08/19 at 17:30; Stop 05/08/19 at 17:31; Status DC Info (CONTRAST GIVEN -- Rx MONITORING) 1 each PRN DAILY PRN MC SEE COMMENTS; Start 05/08/19 at 17:30; Stop 05/10/19 at 17:29 Hydromorphone HCl (Dilaudid) 1 mg 1X ONCE IV Last administered on 05/08/19at 18:23; Start 05/08/19 at 18:30; Stop 05/08/19 at 18:31; Status DC Piperacillin Sod/ Tazobactam Sod 3.375 gm/Sodium Chloride 50 ml @ 100 mls/hr 1X ONCE IV Last administered on 05/08/19at 19:06; Start 05/08/19 at 19:00; Stop 05/08/19 at 19:29; Status DC Sodium Chloride 1,000 ml @ 1,000 mls/hr 1X ONCE IV Last administered on 05/08/19at 19:06; Start 05/08/19 at 19:00; Stop 05/08/19 at 19:59; Status DC Ondansetron HCl (Zofran) 4 mg STK-MED ONCE .ROUTE ; Start 05/08/19 at 19:34; Stop 05/08/19 at 19:34; Status DC Propofol 20 ml @ As Directed STK-MED ONCE IV ; Start 05/08/19 at 19:34; Stop 05/08/19 at 19:34; Status DC Lidocaine HCl (Lidocaine Pf 2% Vial) 5 ml STK-MED ONCE .ROUTE ; Start 05/08/19 at 19:34; Stop 05/08/19 at 19:34; Status DC Dexamethasone Sodium Phosphate (Decadron) 4 mg STK-MED ONCE .ROUTE ; Start 1 at 19:34; Stop 05/08/19 at 19:34; Status DC Fentanyl Citrate (Fentanyl 2ml Vial) 100 mcg STK-MED ONCE .ROUTE ; Start 05/08/19 at 19:34; Stop 05/08/19 at 19:34; Status DC Succinylcholine Chloride (Anectine) 200 mg STK-MED ONCE .ROUTE ; Start 05/08/19 at 19:34; Stop 05/08/19 at 19:34; Status DC Rocuronium [place] (Zemuron) 50 mg STK-MED ONCE .ROUTE ; Start 05/08/19 at 19:34; Stop 05/08/19 at 19:34; Status DC Ondansetron HCl (Zofran) 4 mg PRN Q6HRS PRN IV NAUSEA/VOMITING; Start 05/08/19 at 19:45; Stop 05/08/19 at 23:59; Status DC Fentanyl Citrate (Fentanyl 2ml Vial) 25 mcg PRN Q5MIN PRN IV MILD PAIN 1-3; Start 05/08/19 at 19:45; Stop 05/08/19 at 23:59; Status DC Fentanyl Citrate (Fentanyl 2ml Vial) 50 mcg PRN Q5MIN PRN IV MODERATE TO SEVERE PAIN; Start 05/08/19 at 19:45; Stop 05/08/19 at 23:59; Status DC Ringer's Solution 1,000 ml @ 30 mls/hr Q24H IV Last administered on 05/08/19at 23:06; Start 05/08/19 at 20:00; Stop 05/09/19 at 01:00; Status DC Prochlorperazine Edisylate (Compazine) 5 mg PACU PRN PRN IV NAUSEA, MRX1; Start 05/08/19 at 19:45; Stop 05/08/19 at 23:59; Status DC Insulin Human Lispro (HumaLOG VIAL for OP,RR ONLY) 0-10 units PRN Q1HR PRN SQ PER PROTOCOL; Start 05/08/19 at 19:45; Stop 05/08/19 at 23:59; Status DC Bupivacaine HCl/ Epinephrine Bitart (Sensorcaine-Epi 0.25%-1:200743 Mpf) 30 ml 1X ONCE INJ Last administered on 05/08/19at 20:32; Start 05/08/19 at 20:00; Stop 05/08/19 at 20:01; Status DC Ketamine HCl (Ketamine) 50 mg STK-MED ONCE .ROUTE ; Start 05/08/19 at 20:12; Stop 05/08/19 at 20:12; Status DC Phenylephrine HCl (PHENYLEPHRINE in 0.9% NACL PF) 1 mg STK-MED ONCE IV ; Start 05/08/19 at 20:33; Stop 05/08/19 at 20:33; Status DC Ephedrine Sulfate (ePHEDrine PF IN SALINE SYRINGE) 50 mg STK-MED ONCE IV ; Start 05/08/19 at 20:36; Stop 05/08/19 at 20:36; Status DC Albumin Human 500 ml @ As Directed STK-MED ONCE IV ; Start 05/08/19 at 20:55; Stop 05/08/19 at 20:55; Status DC Glycopyrrolate (Robinul) 1 mg STK-MED ONCE .ROUTE ; Start 05/08/19 at 21:27; Stop 05/08/19 at 21:27; Status DC Neostigmine Methylsulfate (Neostigmine Methylsulfate) 5 mg STK-MED ONCE .ROUTE ; Start 05/08/19 at 21:27; Stop 05/08/19 at 21:27; Status DC Bupivacaine HCl (Sensorcaine Mpf 0.5%) 30 ml STK-MED ONCE .ROUTE ; Start 05/08/19 at 21:39; Stop 05/08/19 at 21:39; Status DC Epinephrine HCl (Adrenalin) 1 mg STK-MED ONCE .ROUTE ; Start 05/08/19 at 21:39; Stop 05/08/19 at 21:39; Status DC Sevoflurane (Ultane) 60 ml STK-MED ONCE IH ; Start 05/08/19 at 21:44; Stop 05/08/19 at 21:44; Status DC Sodium Chloride 1,000 ml @ 125 mls/hr Q8H IV Last administered on 05/08/19at 23:45; Start 05/08/19 at 22:00; Stop 05/09/19 at 15:21; Status DC Ondansetron HCl (Zofran) 4 mg PRN Q6HRS PRN IVP NAUSEA/VOMITING 1ST CHOICE; Start 05/08/19 at 22:00 Fluconazole/ Sodium Chloride 100 ml @ 100 mls/hr Q24H IV Last administered on 05/09/19at 21:56; Start 05/08/19 at 22:00 Hydromorphone HCl (Dilaudid) 1 mg PRN Q4HRS PRN IV SEVERE PAIN 7-10 Last administered on 05/10/19at 08:28; Start 05/08/19 at 22:00 Piperacillin Sod/ Tazobactam Sod 3.375 gm/Sodium Chloride 50 ml @ 100 mls/hr Q6HRS IV Last administered on 05/10/19at 06:14; Start 05/09/19 at 00:00 Pantoprazole Sodium (PROTONIX VIAL for IV PUSH) 40 mg DAILY IVP Last administ ered on 05/10/19at 08:27; Start 05/09/19 at 09:00 Insulin Human Regular 150 unit/ Sodium Chloride 151.5 ml @ 0 mls/hr CONT PRN IV SEE I/O RECORD; Start 05/08/19 at 23:00; Status UNV Insulin Human Regular 150 unit/ Sodium Chloride 151.5 ml @ 0 mls/hr CONT PRN IV SEE I/O RECORD Last administered on 05/08/19at 23:03; Start 05/08/19 at 23:00 Dextrose (Dextrose 50%-Water Syringe) 12.5 gm PRN Q15MIN PRN IV LOW BLOOD SUGAR; Start 05/08/19 at 23:00 Dextrose 250 ml PRN Q15MIN PRN IV LOW BLOOD SUGAR; Start 05/08/19 at 23:00 Albumin Human 500 ml @ 250 mls/hr 1X ONCE IV Last administered on 05/09/19at 00:10; Start 05/09/19 at 00:30; Stop 05/09/19 at 02:29; Status DC Norepinephrine Bitartrate 250 ml @ 20.156 mls/ hr CONT PRN IV SEE I/O RECORD; Start 05/09/19 at 00:00 Dextrose/Sodium Chloride 1,000 ml @ 150 mls/hr [id number] IV Last administered on 05/09/19at 12:28; Start 05/09/19 at 08:45; Stop 05/09/19 at 18:30; Status DC Sodium Chloride 500 ml @ 500 mls/hr PRN Q2HR PRN IV SEE COMMENTS; Start at 11:15 Sodium Chloride 1,000 ml @ 2,190 mls/hr Q28M IV ; Start 05/09/19 at 12:39; Stop 05/09/19 at 13:39; Status DC Sodium Chloride 500 ml @ 1,000 mls/hr PRN Q30MIN PRN IV SEE COMMENTS; Start 05/09/19 at 12:45; Stop 05/09/19 at 12:50; Status DC Norepinephrine Bitartrate 250 ml @ 19.688 mls/ hr CONT PRN IV SEE I/O RECORD; Start 05/09/19 at 12:45; Status Cancel Dobutamine HCl/ Dextrose 250 ml @ 15.75 mls/ hr CONT PRN IV SEE I/O RECORD; Start 05/09/19 at 12:45 Insulin Human Lispro (HumaLOG) 0-7 UNITS TIDWMEALS SQ ; Start 05/09/19 at 17:00; Stop 05/09/19 at 19:36; Status DC Dextrose (Dextrose 50%-Water Syringe) 12.5 gm PRN Q15MIN PRN IV SEE COMMENTS; Start 05/09/19 at 15:30; Status UNV Sodium Chloride 1,000 ml @ 60 mls/hr [id number] IV Last administered on 05/09/19at 21:26; Start 05/09/19 at 15:30 Insulin Human Lispro (HumaLOG) 0-7 UNITS Q6HRS SQ Last administered on 05/10/19at 06:15; Start 05/10/19 at 00:00 Albuterol/ Ipratropium (Duoneb) 3 ml RTQID NEB Last administered on 05/10/19at 07:35; Start 05/10/19 at 08:00 Budesonide (Pulmicort) 0.5 mg RTBID NEB Last administered on 05/10/19at 07:35; Start 05/10/19 at 08:00 Active Scripts Active Reported Venlafaxine Hcl 75 Mg Tablet Unknown Dose PO DAILY Simvastatin 10 Mg Tablet 10 Mg PO DAILY Metformin Hcl 1,000 Mg Tablet 1,000 Mg PO BIDWMEALS Meloxicam 15 Mg Tablet Unknown Dose PO DAILY Lisinopril 10 Mg Tablet Unknown Dose PO DAILY Humalog (Insulin Lispro) 100 Unit/1 Ml Cartridge 100 Unit SQ Sinemet 25-100 Mg Tablet (Carbidopa/Levodopa) 1 Each Tablet 1 Tab PO TID Vitals/I & O Vital Sign - Last 24 Hours 05/09/19 05/09/19 05/09/19 05/09/19 09:00 10:00 11:00 12:00 Pulse 86 88 90 Resp B/P (MAP) 99/52 (68) 112/56 (74) 109/54 (72) Pulse Ox 93 94 92 O2 Delivery Venturi Mask Venturi Mask Venturi Mask Venturi Mask O2 Flow Rate 15.0 05/09/19 05/09/19 05/09/19 05/09/19 12:00 13:00 15:00 16:00 Temp 97.5 97.5 Pulse 86 84 94 Resp B/P (MAP) 117/56 (76) 102/54 (70) 101/52 (68) Pulse Ox 92 93 97 O2 Delivery Venturi Mask Venturi Mask Venturi Mask Venturi Mask O2 Flow Rate 15.0 05/09/19 05/09/19 05/09/19 05/09/19 16:00 17:00 18:00 19:00 Temp 97.5 97.5 Pulse 90 88 82 87 Resp B/P (MAP) 98/52 (67) 91/57 (68) 96/53 (67) 92/48 (63) Pulse Ox 92 94 92 92 O2 Delivery Venturi Mask Venturi Mask Venturi Mask Venturi Mask 05/09/19 05/09/19 05/09/19 05/09/19 20:00 20:00 21:00 22:00 Temp 99.4 99.4 Pulse 91 92 96 Resp B/P (MAP) 118/59 (78) 110/64 (79) 138/67 (90) Pulse Ox 92 93 93 O2 Delivery Venturi Mask Venturi Mask Venturi Mask Venturi Mask O2 Flow Rate 15.0 05/09/19 05/09/19 05/09/19 05/10/19 22:31 23:00 23:01 00:00 Temp 99.1 99.1 Pulse 93 85 Resp 24 22 22 22 B/P (MAP) 122/56 (78) 109/65 (80) Pulse Ox 93 92 O2 Delivery Venturi Mask Venturi Mask 05/10/19 05/10/19 05/10/19 05/10/19 00:00 01:00 02:00 03:00 Pulse 91 86 90 Resp 24 20 24 B/P (MAP) 105/54 (71) 102/52 (69) 140/64 (89) Pulse Ox 92 92 96 O2 Delivery Venturi Mask Venturi Mask Venturi Mask Venturi Mask O2 Flow Rate 15.0 05/10/19 05/10/19 05/10/19 05/10/19 04:00 04:00 05:00 06:00 Temp 99.2 99.2 Pulse 89 89 95 Resp 20 22 24 B/P (MAP) 135/65 (88) 139/64 (89) 135/68 (90) Pulse Ox 95 95 95 O2 Delivery Venturi Mask Venturi Mask Venturi Mask Venturi Mask O2 Flow Rate 15.0 05/10/19 05/10/19 07:38 08:28 Resp 20 Pulse Ox 95 95 O2 Delivery Venturi Mask mask O2 Flow Rate 15.0 15.0 Intake and Output 05/09/19 05/09/19 05/10/19 15:00 23:00 07:00 Intake Total 1380 ml 820 ml 835 ml Output Total 280 ml 355 ml 1240 ml Balance 1100 ml 465 ml -405 ml JAZMINE COLLINS MD May 10, 2019 08:57
--- NOTE | 2019-05-10 10:44 | PDOC ---
Infectious Disease Note Vital Sign Vital Signs Vital Signs Date Time Temp Pulse Resp B/P (MAP) Pulse Ox O2 Delivery O2 Flow Rate FiO2 05/10/19 08:58 20 mask 05/10/19 08:28 95 15.0 05/10/19 06:00 95 135/68 (90) 05/10/19 04:00 99.2 99.2 Labs Lab Laboratory Tests Test 05/09/19 10:26 05/09/19 10:30 05/09/19 10:49 05/09/19 11:35 Glucose (Fingerstick) 200 mg/dL (70-99) 176 mg/dL (70-99) 175 mg/dL (70-99) Sodium Level 140 mmol/L (136-145) Potassium Level 5.8 mmol/L (3.5-5.1) Chloride Level 106 mmol/L (98-107) Carbon Dioxide Level 23 mmol/L (21-32) Anion Gap 11 (6-14) Blood Urea Nitrogen 53 mg/dL (8-26) Creatinine 3.1 mg/dL (0.7-1.3) Estimated GFR (Cockcroft-Gault) 19.8 Glucose Level 190 mg/dL (70-99) Calcium Level 7.7 mg/dL (8.5-10.1) Test 05/09/19 12:34 05/09/19 13:40 05/09/19 14:23 05/09/19 16:13 Glucose (Fingerstick) 161 mg/dL (70-99) 129 mg/dL (70-99) 167 mg/dL (70-99) Ionized Calcium 0.98 mmol/L (1.13-1.32) Test 05/09/19 23:58 05/10/19 05:40 05/10/19 06:06 Glucose (Fingerstick) 169 mg/dL (70-99) 152 mg/dL (70-99) White Blood Count 7.1 x10^3/uL (4.0-11.0) Red Blood Count 3.05 x10^6/uL (4.30-5.70) Hemoglobin 9.7 g/dL (13.0-17.5) Hematocrit 29.2 % (39.0-53.0) Mean Corpuscular Volume 96 fL (79-100) Mean Corpuscular Hemoglobin 32 pg (25-35) Mean Corpuscular Hemoglobin Concent 33 g/dL (31-37) Red Cell Distribution Width 14.1 % (11.5-14.5) Platelet Count 176 x10^3/uL (140-400) Neutrophils (%) (Auto) 83 % (31-73) Lymphocytes (%) (Auto) 7 % (24-48) Monocytes (%) (Auto) 9 % (0-9) Eosinophils (%) (Auto) 1 % (0-3) Basophils (%) (Auto) 0 % (0-3) Neutrophils # (Auto) 6.0 x10^3/uL (1.8-7.7) Lymphocytes # (Auto) 0.5 x10^3/uL (1.0-4.8) Monocytes # (Auto) 0.6 x10^3/uL (0.0-1.1) Eosinophils # (Auto) 0.1 x10^3/uL (0.0-0.7) Basophils # (Auto) 0.0 x10^3/uL (0.0-0.2) Sodium Level 143 mmol/L (136-145) Potassium Level 5.3 mmol/L (3.5-5.1) Chloride Level 106 mmol/L (98-107) Carbon Dioxide Level 23 mmol/L (21-32) Anion Gap 14 (6-14) Blood Urea Nitrogen 54 mg/dL (8-26) Creatinine 2.9 mg/dL (0.7-1.3) Estimated GFR (Cockcroft-Gault) 21.4 BUN/Creatinine Ratio 19 (6-20) Glucose Level 163 mg/dL (70-99) Calcium Level 8.1 mg/dL (8.5-10.1) Total Bilirubin 0.4 mg/dL (0.2-1.0) Aspartate Amino Transf (AST/SGOT) 96 U/L (15-37) Alanine Aminotransferase (ALT/SGPT) 48 U/L (16-63) Alkaline Phosphatase 47 U/L (46-116) Total Protein 6.3 g/dL (6.4-8.2) Albumin 2.4 g/dL (3.4-5.0) Albumin/Globulin Ratio 0.6 (1.0-1.7) Objective Assessment Perforated duodenal ulcer s/p repair, 05/08 ? cultures Fever Pancytopenia - improved Abx allergy: Sulfa and cipro w/ rash Acute respiratory failure, now on venti mask -s/p Bronchoscopy with BAL, 05/09. mucous plugging, culture pending GREGG Nonobstructing calculus of the right kidney. Recent right shoulder joint replacement, 05/06 at [facility] Plan of Care Continue Zosyn and fluconazole f/u cultures Monitor labs/temp D/w at bedside D/w nursing Thank you [id number] EDILBERTO CABRALES APRN May 10, 2019 10:44
--- NOTE | 2019-05-10 11:36 | PDOC ---
SURGICAL PROGRESS NOTE Subjective Pt feels better, abd incisional pain, hungry Vital Signs Vital Signs Date Time Temp Pulse Resp B/P (MAP) Pulse Ox O2 Delivery O2 Flow Rate FiO2 05/10/19 09:00 97 22 147/83 (104) 93 Venturi Mask 05/10/19 08:28 15.0 05/10/19 08:00 97.8 97.8 I&O Intake and Output 05/10/19 07:00 Intake Total 3035 ml Output Total 1875 ml Balance 1160 ml Intake Oral 60 ml IV Total 2975 ml Output Urine Total 710 ml Gastric Drainage Total 550 ml Drainage Total 615 ml General: Alert, Oriented X3, Cooperative, moderate distress, Other (on facemask) Abdomen: Soft, Other (appropriate TTP) Psych/Mental Status: Other (NGT with clearing aspirate) Labs Laboratory Tests Test 05/08/19 16:44 05/08/19 20:43 05/08/19 22:48 05/08/19 23:53 White Blood Count 6.5 x10^3/uL (4.0-11.0) Red Blood Count 4.16 x10^6/uL (4.30-5.70) Hemoglobin 13.4 g/dL (13.0-17.5) Hematocrit 39.7 % (39.0-53.0) Mean Corpuscular Volume 96 fL (79-100) Mean Corpuscular Hemoglobin 32 pg (25-35) Mean Corpuscular Hemoglobin Concent 34 g/dL (31-37) Red Cell Distribution Width 13.8 % (11.5-14.5) Platelet Count 211 x10^3/uL (140-400) Neutrophils (%) (Auto) 85 % (31-73) Lymphocytes (%) (Auto) 8 % (24-48) Monocytes (%) (Auto) 6 % (0-9) Eosinophils (%) (Auto) 0 % (0-3) Basophils (%) (Auto) 1 % (0-3) Neutrophils # (Auto) 5.5 x10^3/uL (1.8-7.7) Lymphocytes # (Auto) 0.6 x10^3/uL (1.0-4.8) Monocytes # (Auto) 0.4 x10^3/uL (0.0-1.1) Eosinophils # (Auto) 0.0 x10^3/uL (0.0-0.7) Basophils # (Auto) 0.0 x10^3/uL (0.0-0.2) D-Dimer (Zoila) 5.78 ug/mlFEU (0.00-0.50) Sodium Level 135 mmol/L (136-145) Potassium Level 5.0 mmol/L (3.5-5.1) Chloride Level 97 mmol/L (98-107) Carbon Dioxide Level 25 mmol/L (21-32) Anion Gap 13 (6-14) Blood Urea Nitrogen 36 mg/dL (8-26) Creatinine 1.5 mg/dL (0.7-1.3) Estimated GFR (Cockcroft-Gault) 45.9 BUN/Creatinine Ratio 24 (6-20) Glucose Level 298 mg/dL (70-99) Calcium Level 9.4 mg/dL (8.5-10.1) Total Bilirubin 0.4 mg/dL (0.2-1.0) Aspartate Amino Transf (AST/SGOT) 26 U/L (15-37) Alanine Aminotransferase (ALT/SGPT) 21 U/L (16-63) Alkaline Phosphatase 89 U/L (46-116) Total Protein 7.6 g/dL (6.4-8.2) Albumin 3.4 g/dL (3.4-5.0) Albumin/Globulin Ratio 0.8 (1.0-1.7) Lipase 128 U/L (73-393) Glucose (Fingerstick) 295 mg/dL (70-99) 312 mg/dL (70-99) 274 mg/dL (70-99) Test 05/09/19 00:52 05/09/19 01:53 05/09/19 02:55 05/09/19 03:53 Glucose (Fingerstick) 254 mg/dL (70-99) 226 mg/dL (70-99) 167 mg/dL (70-99) 148 mg/dL (70-99) Test 05/09/19 04:54 05/09/19 05:35 05/09/19 05:57 05/09/19 06:59 Glucose (Fingerstick) 123 mg/dL (70-99) 119 mg/dL (70-99) 118 mg/dL (70-99) White Blood Count 2.5 x10^3/uL (4.0-11.0) Red Blood Count 3.22 x10^6/uL (4.30-5.70) Hemoglobin 10.3 g/dL (13.0-17.5) Hematocrit 31.1 % (39.0-53.0) Mean Corpuscular Volume 96 fL (79-100) Mean Corpuscular Hemoglobin 32 pg (25-35) Mean Corpuscular Hemoglobin Concent 33 g/dL (31-37) Red Cell Distribution Width 13.6 % (11.5-14.5) Platelet Count 138 x10^3/uL (140-400) Neutrophils (%) (Auto) 74 % (31-73) Lymphocytes (%) (Auto) 12 % (24-48) Monocytes (%) (Auto) 14 % (0-9) Eosinophils (%) (Auto) 0 % (0-3) Basophils (%) (Auto) 0 % (0-3) Neutrophils # (Auto) 1.9 x10^3/uL (1.8-7.7) Lymphocytes # (Auto) 0.3 x10^3/uL (1.0-4.8) Monocytes # (Auto) 0.3 x10^3/uL (0.0-1.1) Eosinophils # (Auto) 0.0 x10^3/uL (0.0-0.7) Basophils # (Auto) 0.0 x10^3/uL (0.0-0.2) Segmented Neutrophils % 45 % (35-66) Band Neutrophils % 30 % (0-9) Lymphocytes % 12 % (24-48) Atypical Lymphocytes % (Manual) 2 % (0-0) Monocytes % 10 % (0-10) Metamyelocytes % 1 % (0-0) Platelet Estimate Decreased (ADEQUATE) Large Platelets Present Sodium Level 141 mmol/L (136-145) Potassium Level 5.2 mmol/L (3.5-5.1) Chloride Level 106 mmol/L (98-107) Carbon Dioxide Level 25 mmol/L (21-32) Anion Gap 10 (6-14) Blood Urea Nitrogen 44 mg/dL (8-26) Creatinine 2.3 mg/dL (0.7-1.3) Estimated GFR (Cockcroft-Gault) 28.0 Glucose Level 129 mg/dL (70-99) Calcium Level 8.1 mg/dL (8.5-10.1) Test 05/09/19 08:06 05/09/19 09:23 05/09/19 10:15 05/09/19 10:26 Glucose (Fingerstick) 135 mg/dL (70-99) 169 mg/dL (70-99) 200 mg/dL (70-99) Fibrinogen 729 mg/dL (200-440) D-Dimer (Zoila) 6.91 ug/mlFEU (0.00-0.50) Sodium Level 139 mmol/L (136-145) Potassium Level 5.7 mmol/L (3.5-5.1) Chloride Level 104 mmol/L (98-107) Carbon Dioxide Level 26 mmol/L (21-32) Anion Gap 9 (6-14) Blood Urea Nitrogen 46 mg/dL (8-26) Creatinine 2.5 mg/dL (0.7-1.3) Estimated GFR (Cockcroft-Gault) 25.4 BUN/Creatinine Ratio 18 (6-20) Glucose Level 197 mg/dL (70-99) Calcium Level 7.6 mg/dL (8.5-10.1) Phosphorus Level 3.0 mg/dL (2.6-4.7) Magnesium Level 1.7 mg/dL (1.8-2.4) Total Bilirubin 0.4 mg/dL (0.2-1.0) Aspartate Amino Transf (AST/SGOT) 110 U/L (15-37) Alanine Aminotransferase (ALT/SGPT) 50 U/L (16-63) Alkaline Phosphatase 43 U/L (46-116) Total Protein 5.5 g/dL (6.4-8.2) Albumin 2.6 g/dL (3.4-5.0) Albumin/Globulin Ratio 0.9 (1.0-1.7) Procalcitonin 35.82 ng/mL (0.00-0.10) Test 05/09/19 10:30 05/09/19 10:49 05/09/19 11:35 05/09/19 12:34 Sodium Level 140 mmol/L (136-145) Potassium Level 5.8 mmol/L (3.5-5.1) Chloride Level 106 mmol/L (98-107) Carbon Dioxide Level 23 mmol/L (21-32) Anion Gap 11 (6-14) Blood Urea Nitrogen 53 mg/dL (8-26) Creatinine 3.1 mg/dL (0.7-1.3) Estimated GFR (Cockcroft-Gault) 19.8 Glucose Level 190 mg/dL (70-99) Calcium Level 7.7 mg/dL (8.5-10.1) Glucose (Fingerstick) 176 mg/dL (70-99) 175 mg/dL (70-99) 161 mg/dL (70-99) Test 05/09/19 13:40 05/09/19 14:23 05/09/19 16:13 05/09/19 23:58 Ionized Calcium 0.98 mmol/L (1.13-1.32) Glucose (Fingerstick) 129 mg/dL (70-99) 167 mg/dL (70-99) 169 mg/dL (70-99) Test 05/10/19 05:40 05/10/19 06:06 White Blood Count 7.1 x10^3/uL (4.0-11.0) Red Blood Count 3.05 x10^6/uL (4.30-5.70) Hemoglobin 9.7 g/dL (13.0-17.5) Hematocrit 29.2 % (39.0-53.0) Mean Corpuscular Volume 96 fL (79-100) Mean Corpuscular Hemoglobin 32 pg (25-35) Mean Corpuscular Hemoglobin Concent 33 g/dL (31-37) Red Cell Distribution Width 14.1 % (11.5-14.5) Platelet Count 176 x10^3/uL (140-400) Neutrophils (%) (Auto) 83 % (31-73) Lymphocytes (%) (Auto) 7 % (24-48) Monocytes (%) (Auto) 9 % (0-9) Eosinophils (%) (Auto) 1 % (0-3) Basophils (%) (Auto) 0 % (0-3) Neutrophils # (Auto) 6.0 x10^3/uL (1.8-7.7) Lymphocytes # (Auto) 0.5 x10^3/uL (1.0-4.8) Monocytes # (Auto) 0.6 x10^3/uL (0.0-1.1) Eosinophils # (Auto) 0.1 x10^3/uL (0.0-0.7) Basophils # (Auto) 0.0 x10^3/uL (0.0-0.2) Sodium Level 143 mmol/L (136-145) Potassium Level 5.3 mmol/L (3.5-5.1) Chloride Level 106 mmol/L (98-107) Carbon Dioxide Level 23 mmol/L (21-32) Anion Gap 14 (6-14) Blood Urea Nitrogen 54 mg/dL (8-26) Creatinine 2.9 mg/dL (0.7-1.3) Estimated GFR (Cockcroft-Gault) 21.4 BUN/Creatinine Ratio 19 (6-20) Glucose Level 163 mg/dL (70-99) Calcium Level 8.1 mg/dL (8.5-10.1) Total Bilirubin 0.4 mg/dL (0.2-1.0) Aspartate Amino Transf (AST/SGOT) 96 U/L (15-37) Alanine Aminotransferase (ALT/SGPT) 48 U/L (16-63) Alkaline Phosphatase 47 U/L (46-116) Total Protein 6.3 g/dL (6.4-8.2) Albumin 2.4 g/dL (3.4-5.0) Albumin/Globulin Ratio 0.6 (1.0-1.7) Glucose (Fingerstick) 152 mg/dL (70-99) Laboratory Tests Test 05/09/19 11:35 05/09/19 12:34 05/09/19 13:40 05/09/19 14:23 Glucose (Fingerstick) 175 mg/dL (70-99) 161 mg/dL (70-99) 129 mg/dL (70-99) Ionized Calcium 0.98 mmol/L (1.13-1.32) Test 05/09/19 16:13 05/09/19 23:58 05/10/19 05:40 05/10/19 06:06 Glucose (Fingerstick) 167 mg/dL (70-99) 169 mg/dL (70-99) 152 mg/dL (70-99) White Blood Count 7.1 x10^3/uL (4.0-11.0) Red Blood Count 3.05 x10^6/uL (4.30-5.70) Hemoglobin 9.7 g/dL (13.0-17.5) Hematocrit 29.2 % (39.0-53.0) Mean Corpuscular Volume 96 fL (79-100) Mean Corpuscular Hemoglobin 32 pg (25-35) Mean Corpuscular Hemoglobin Concent 33 g/dL (31-37) Red Cell Distribution Width 14.1 % (11.5-14.5) Platelet Count 176 x10^3/uL (140-400) Neutrophils (%) (Auto) 83 % (31-73) Lymphocytes (%) (Auto) 7 % (24-48) Monocytes (%) (Auto) 9 % (0-9) Eosinophils (%) (Auto) 1 % (0-3) Basophils (%) (Auto) 0 % (0-3) Neutrophils # (Auto) 6.0 x10^3/uL (1.8-7.7) Lymphocytes # (Auto) 0.5 x10^3/uL (1.0-4.8) Monocytes # (Auto) 0.6 x10^3/uL (0.0-1.1) Eosinophils # (Auto) 0.1 x10^3/uL (0.0-0.7) Basophils # (Auto) 0.0 x10^3/uL (0.0-0.2) Sodium Level 143 mmol/L (136-145) Potassium Level 5.3 mmol/L (3.5-5.1) Chloride Level 106 mmol/L (98-107) Carbon Dioxide Level 23 mmol/L (21-32) Anion Gap 14 (6-14) Blood Urea Nitrogen 54 mg/dL (8-26) Creatinine 2.9 mg/dL (0.7-1.3) Estimated GFR (Cockcroft-Gault) 21.4 BUN/Creatinine Ratio 19 (6-20) Glucose Level 163 mg/dL (70-99) Calcium Level 8.1 mg/dL (8.5-10.1) Total Bilirubin 0.4 mg/dL (0.2-1.0) Aspartate Amino Transf (AST/SGOT) 96 U/L (15-37) Alanine Aminotransferase (ALT/SGPT) 48 U/L (16-63) Alkaline Phosphatase 47 U/L (46-116) Total Protein 6.3 g/dL (6.4-8.2) Albumin 2.4 g/dL (3.4-5.0) Albumin/Globulin Ratio 0.6 (1.0-1.7) Problem List Problems Medical Problems: (1) Perforated intestine, nontraumatic Status: Acute Assessment/Plan s/p repair of perforated ulcer cont pulm toilet cont NGT, await bowel fxn d/w pt and pt's supportive . JORGE L CLOUD MD May 10, 2019 11:36
--- NOTE | 2019-05-10 12:39 | PDOC ---
PROGRESS NOTES Subjective Subjective SEEN IN FOLLOW UP OF ARF Objective Objective Vital Signs Date Time Temp Pulse Resp B/P (MAP) Pulse Ox O2 Delivery O2 Flow Rate FiO2 05/10/19 11:37 95 Venturi Mask 15.0 05/10/19 09:00 97 22 147/83 (104) 05/10/19 08:00 97.8 97.8 Intake and Output 05/10/19 07:00 Intake Total 3035 ml Output Total 1875 ml Balance 1160 ml Intake Oral 60 ml IV Total 2975 ml Output Urine Total 710 ml Gastric Drainage Total 550 ml Drainage Total 615 ml Physical Exam Abdomen: Other (POST OP) Heart: Regular rate, Normal S1, Normal S2, No murmurs, Gallops Extremities: No clubbing, No cyanosis, No edema, Normal pulses, No tenderness/swelling Lungs: Clear to auscultation, Normal air movement Psych/Mental Status: Mental status NL, Mood NL Diagnosis RENAL FAILURE: Acute (Acute tubular necrosis) Assessment Assessment Problems Medical Problems: (1) Perforated intestine, nontraumatic Status: Acute Plan Plan of Care RENAL FUNCTION IS SLOWLY IMPROVING. HIS K+ IS MILDLY ELEVATED. HOLD PPN DUE TO THE SAME. Comment Review of Relevant I have reviewed the following items adriano (where applicable) has been applied. Labs Laboratory Tests Test 05/08/19 16:44 05/08/19 20:43 05/08/19 22:48 05/08/19 23:53 White Blood Count 6.5 x10^3/uL (4.0-11.0) Red Blood Count 4.16 x10^6/uL (4.30-5.70) Hemoglobin 13.4 g/dL (13.0-17.5) Hematocrit 39.7 % (39.0-53.0) Mean Corpuscular Volume 96 fL (79-100) Mean Corpuscular Hemoglobin 32 pg (25-35) Mean Corpuscular Hemoglobin Concent 34 g/dL (31-37) Red Cell Distribution Width 13.8 % (11.5-14.5) Platelet Count 211 x10^3/uL (140-400) Neutrophils (%) (Auto) 85 % (31-73) Lymphocytes (%) (Auto) 8 % (24-48) Monocytes (%) (Auto) 6 % (0-9) Eosinophils (%) (Auto) 0 % (0-3) Basophils (%) (Auto) 1 % (0-3) Neutrophils # (Auto) 5.5 x10^3/uL (1.8-7.7) Lymphocytes # (Auto) 0.6 x10^3/uL (1.0-4.8) Monocytes # (Auto) 0.4 x10^3/uL (0.0-1.1) Eosinophils # (Auto) 0.0 x10^3/uL (0.0-0.7) Basophils # (Auto) 0.0 x10^3/uL (0.0-0.2) D-Dimer (Zoila) 5.78 ug/mlFEU (0.00-0.50) Sodium Level 135 mmol/L (136-145) Potassium Level 5.0 mmol/L (3.5-5.1) Chloride Level 97 mmol/L (98-107) Carbon Dioxide Level 25 mmol/L (21-32) Anion Gap 13 (6-14) Blood Urea Nitrogen 36 mg/dL (8-26) Creatinine 1.5 mg/dL (0.7-1.3) Estimated GFR (Cockcroft-Gault) 45.9 BUN/Creatinine Ratio 24 (6-20) Glucose Level 298 mg/dL (70-99) Calcium Level 9.4 mg/dL (8.5-10.1) Total Bilirubin 0.4 mg/dL (0.2-1.0) Aspartate Amino Transf (AST/SGOT) 26 U/L (15-37) Alanine Aminotransferase (ALT/SGPT) 21 U/L (16-63) Alkaline Phosphatase 89 U/L (46-116) Total Protein 7.6 g/dL (6.4-8.2) Albumin 3.4 g/dL (3.4-5.0) Albumin/Globulin Ratio 0.8 (1.0-1.7) Lipase 128 U/L (73-393) Glucose (Fingerstick) 295 mg/dL (70-99) 312 mg/dL (70-99) 274 mg/dL (70-99) Test 05/09/19 00:52 05/09/19 01:53 05/09/19 02:55 05/09/19 03:53 Glucose (Fingerstick) 254 mg/dL (70-99) 226 mg/dL (70-99) 167 mg/dL (70-99) 148 mg/dL (70-99) Test 05/09/19 04:54 05/09/19 05:35 05/09/19 05:57 05/09/19 06:59 Glucose (Fingerstick) 123 mg/dL (70-99) 119 mg/dL (70-99) 118 mg/dL (70-99) White Blood Count 2.5 x10^3/uL (4.0-11.0) Red Blood Count 3.22 x10^6/uL (4.30-5.70) Hemoglobin 10.3 g/dL (13.0-17.5) Hematocrit 31.1 % (39.0-53.0) Mean Corpuscular Volume 96 fL (79-100) Mean Corpuscular Hemoglobin 32 pg (25-35) Mean Corpuscular Hemoglobin Concent 33 g/dL (31-37) Red Cell Distribution Width 13.6 % (11.5-14.5) Platelet Count 138 x10^3/uL (140-400) Neutrophils (%) (Auto) 74 % (31-73) Lymphocytes (%) (Auto) 12 % (24-48) Monocytes (%) (Auto) 14 % (0-9) Eosinophils (%) (Auto) 0 % (0-3) Basophils (%) (Auto) 0 % (0-3) Neutrophils # (Auto) 1.9 x10^3/uL (1.8-7.7) Lymphocytes # (Auto) 0.3 x10^3/uL (1.0-4.8) Monocytes # (Auto) 0.3 x10^3/uL (0.0-1.1) Eosinophils # (Auto) 0.0 x10^3/uL (0.0-0.7) Basophils # (Auto) 0.0 x10^3/uL (0.0-0.2) Segmented Neutrophils % 45 % (35-66) Band Neutrophils % 30 % (0-9) Lymphocytes % 12 % (24-48) Atypical Lymphocytes % (Manual) 2 % (0-0) Monocytes % 10 % (0-10) Metamyelocytes % 1 % (0-0) Platelet Estimate Decreased (ADEQUATE) Large Platelets Present Sodium Level 141 mmol/L (136-145) Potassium Level 5.2 mmol/L (3.5-5.1) Chloride Level 106 mmol/L (98-107) Carbon Dioxide Level 25 mmol/L (21-32) Anion Gap 10 (6-14) Blood Urea Nitrogen 44 mg/dL (8-26) Creatinine 2.3 mg/dL (0.7-1.3) Estimated GFR (Cockcroft-Gault) 28.0 Glucose Level 129 mg/dL (70-99) Calcium Level 8.1 mg/dL (8.5-10.1) Test 05/09/19 08:06 05/09/19 09:23 05/09/19 10:15 05/09/19 10:26 Glucose (Fingerstick) 135 mg/dL (70-99) 169 mg/dL (70-99) 200 mg/dL (70-99) Fibrinogen 729 mg/dL (200-440) D-Dimer (Zoila) 6.91 ug/mlFEU (0.00-0.50) Sodium Level 139 mmol/L (136-145) Potassium Level 5.7 mmol/L (3.5-5.1) Chloride Level 104 mmol/L (98-107) Carbon Dioxide Level 26 mmol/L (21-32) Anion Gap 9 (6-14) Blood Urea Nitrogen 46 mg/dL (8-26) Creatinine 2.5 mg/dL (0.7-1.3) Estimated GFR (Cockcroft-Gault) 25.4 BUN/Creatinine Ratio 18 (6-20) Glucose Level 197 mg/dL (70-99) Calcium Level 7.6 mg/dL (8.5-10.1) Phosphorus Level 3.0 mg/dL (2.6-4.7) Magnesium Level 1.7 mg/dL (1.8-2.4) Total Bilirubin 0.4 mg/dL (0.2-1.0) Aspartate Amino Transf (AST/SGOT) 110 U/L (15-37) Alanine Aminotransferase (ALT/SGPT) 50 U/L (16-63) Alkaline Phosphatase 43 U/L (46-116) Total Protein 5.5 g/dL (6.4-8.2) Albumin 2.6 g/dL (3.4-5.0) Albumin/Globulin Ratio 0.9 (1.0-1.7) Procalcitonin 35.82 ng/mL (0.00-0.10) Test 05/09/19 10:30 05/09/19 10:49 05/09/19 11:35 05/09/19 12:34 Sodium Level 140 mmol/L (136-145) Potassium Level 5.8 mmol/L (3.5-5.1) Chloride Level 106 mmol/L (98-107) Carbon Dioxide Level 23 mmol/L (21-32) Anion Gap 11 (6-14) Blood Urea Nitrogen 53 mg/dL (8-26) Creatinine 3.1 mg/dL (0.7-1.3) Estimated GFR (Cockcroft-Gault) 19.8 Glucose Level 190 mg/dL (70-99) Calcium Level 7.7 mg/dL (8.5-10.1) Glucose (Fingerstick) 176 mg/dL (70-99) 175 mg/dL (70-99) 161 mg/dL (70-99) Test 05/09/19 13:40 05/09/19 14:23 05/09/19 16:13 05/09/19 23:58 Ionized Calcium 0.98 mmol/L (1.13-1.32) Glucose (Fingerstick) 129 mg/dL (70-99) 167 mg/dL (70-99) 169 mg/dL (70-99) Test 05/10/19 05:40 05/10/19 06:06 White Blood Count 7.1 x10^3/uL (4.0-11.0) Red Blood Count 3.05 x10^6/uL (4.30-5.70) Hemoglobin 9.7 g/dL (13.0-17.5) Hematocrit 29.2 % (39.0-53.0) Mean Corpuscular Volume 96 fL (79-100) Mean Corpuscular Hemoglobin 32 pg (25-35) Mean Corpuscular Hemoglobin Concent 33 g/dL (31-37) Red Cell Distribution Width 14.1 % (11.5-14.5) Platelet Count 176 x10^3/uL (140-400) Neutrophils (%) (Auto) 83 % (31-73) Lymphocytes (%) (Auto) 7 % (24-48) Monocytes (%) (Auto) 9 % (0-9) Eosinophils (%) (Auto) 1 % (0-3) Basophils (%) (Auto) 0 % (0-3) Neutrophils # (Auto) 6.0 x10^3/uL (1.8-7.7) Lymphocytes # (Auto) 0.5 x10^3/uL (1.0-4.8) Monocytes # (Auto) 0.6 x10^3/uL (0.0-1.1) Eosinophils # (Auto) 0.1 x10^3/uL (0.0-0.7) Basophils # (Auto) 0.0 x10^3/uL (0.0-0.2) Sodium Level 143 mmol/L (136-145) Potassium Level 5.3 mmol/L (3.5-5.1) Chloride Level 106 mmol/L (98-107) Carbon Dioxide Level 23 mmol/L (21-32) Anion Gap 14 (6-14) Blood Urea Nitrogen 54 mg/dL (8-26) Creatinine 2.9 mg/dL (0.7-1.3) Estimated GFR (Cockcroft-Gault) 21.4 BUN/Creatinine Ratio 19 (6-20) Glucose Level 163 mg/dL (70-99) Calcium Level 8.1 mg/dL (8.5-10.1) Total Bilirubin 0.4 mg/dL (0.2-1.0) Aspartate Amino Transf (AST/SGOT) 96 U/L (15-37) Alanine Aminotransferase (ALT/SGPT) 48 U/L (16-63) Alkaline Phosphatase 47 U/L (46-116) Total Protein 6.3 g/dL (6.4-8.2) Albumin 2.4 g/dL (3.4-5.0) Albumin/Globulin Ratio 0.6 (1.0-1.7) Glucose (Fingerstick) 152 mg/dL (70-99) Laboratory Tests Test 05/09/19 13:40 05/09/19 14:23 05/09/19 16:13 05/09/19 23:58 Ionized Calcium 0.98 mmol/L (1.13-1.32) Glucose (Fingerstick) 129 mg/dL (70-99) 167 mg/dL (70-99) 169 mg/dL (70-99) Test 05/10/19 05:40 05/10/19 06:06 White Blood Count 7.1 x10^3/uL (4.0-11.0) Red Blood Count 3.05 x10^6/uL (4.30-5.70) Hemoglobin 9.7 g/dL (13.0-17.5) Hematocrit 29.2 % (39.0-53.0) Mean Corpuscular Volume 96 fL (79-100) Mean Corpuscular Hemoglobin 32 pg (25-35) Mean Corpuscular Hemoglobin Concent 33 g/dL (31-37) Red Cell Distribution Width 14.1 % (11.5-14.5) Platelet Count 176 x10^3/uL (140-400) Neutrophils (%) (Auto) 83 % (31-73) Lymphocytes (%) (Auto) 7 % (24-48) Monocytes (%) (Auto) 9 % (0-9) Eosinophils (%) (Auto) 1 % (0-3) Basophils (%) (Auto) 0 % (0-3) Neutrophils # (Auto) 6.0 x10^3/uL (1.8-7.7) Lymphocytes # (Auto) 0.5 x10^3/uL (1.0-4.8) Monocytes # (Auto) 0.6 x10^3/uL (0.0-1.1) Eosinophils # (Auto) 0.1 x10^3/uL (0.0-0.7) Basophils # (Auto) 0.0 x10^3/uL (0.0-0.2) Sodium Level 143 mmol/L (136-145) Potassium Level 5.3 mmol/L (3.5-5.1) Chloride Level 106 mmol/L (98-107) Carbon Dioxide Level 23 mmol/L (21-32) Anion Gap 14 (6-14) Blood Urea Nitrogen 54 mg/dL (8-26) Creatinine 2.9 mg/dL (0.7-1.3) Estimated GFR (Cockcroft-Gault) 21.4 BUN/Creatinine Ratio 19 (6-20) Glucose Level 163 mg/dL (70-99) Calcium Level 8.1 mg/dL (8.5-10.1) Total Bilirubin 0.4 mg/dL (0.2-1.0) Aspartate Amino Transf (AST/SGOT) 96 U/L (15-37) Alanine Aminotransferase (ALT/SGPT) 48 U/L (16-63) Alkaline Phosphatase 47 U/L (46-116) Total Protein 6.3 g/dL (6.4-8.2) Albumin 2.4 g/dL (3.4-5.0) Albumin/Globulin Ratio 0.6 (1.0-1.7) Glucose (Fingerstick) 152 mg/dL (70-99) Medications Current Medications Fentanyl Citrate (Fentanyl 2ml Vial) 50 mcg PRN Q15MIN PRN IV PAIN GREATER THAN 3/10 Last administered on 05/08/19 19:27; Start 05/08/19 at 16:30; Stop 05/08/19 at 21:00; Status DC Sodium Chloride 1,000 ml @ 250 mls/hr Q4H IV Last administered on 05/08/19at 16:54; Start 05/08/19 at 16:19; Stop 05/08/19 at 20:18; Status DC Metoclopramide HCl (Reglan Vial) 10 mg 1X ONCE IVP Last administered on 05/08/19at 16:51; Start 05/08/19 at 17:00; Stop 05/08/19 at 17:01; Status DC Diphenhydramine HCl (Benadryl) 25 mg 1X ONCE IVP Last administered on 04/16 16:51; Start 05/08/19 at 17:00; Stop 05/08/19 at 17:01; Status DC Iohexol (Omnipaque 350 Mg/ml) 90 ml 1X ONCE IV Last administered on 05/08/19at 17:45; Start 05/08/19 at 17:30; Stop 05/08/19 at 17:31; Status DC Info (CONTRAST GIVEN -- Rx MONITORING) 1 each PRN DAILY PRN MC SEE COMMENTS; Start 05/08/19 at 17:30; Stop 05/10/19 at 17:29 Hydromorphone HCl (Dilaudid) 1 mg 1X ONCE IV Last administered on 05/08/19at 18:23; Start 05/08/19 at 18:30; Stop 05/08/19 at 18:31; Status DC Piperacillin Sod/ Tazobactam Sod 3.375 gm/Sodium Chloride 50 ml @ 100 mls/hr 1X ONCE IV Last administered on 05/08/19at 19:06; Start 05/08/19 at 19:00; Stop 05/08/19 at 19:29; Status DC Sodium Chloride 1,000 ml @ 1,000 mls/hr 1X ONCE IV Last administered on 05/08/19at 19:06; Start 05/08/19 at 19:00; Stop 05/08/19 at 19:59; Status DC Ondansetron HCl (Zofran) 4 mg STK-MED ONCE .ROUTE ; Start 05/08/19 at 19:34; Stop 05/08/19 at 19:34; Status DC Propofol 20 ml @ As Directed STK-MED ONCE IV ; Start 05/08/19 at 19:34; Stop 05/08/19 at 19:34; Status DC Lidocaine HCl (Lidocaine Pf 2% Vial) 5 ml STK-MED ONCE .ROUTE ; Start 05/08/19 at 19:34; Stop 05/08/19 at 19:34; Status DC Dexamethasone Sodium Phosphate (Decadron) 4 mg STK-MED ONCE .ROUTE ; Start 05/08/19 at 19:34; Stop 05/08/19 at 19:34; Status DC Fentanyl Citrate (Fentanyl 2ml Vial) 100 mcg STK-MED ONCE .ROUTE ; Start 05/08 at 19:34; Stop 05/08/19 at 19:34; Status DC Succinylcholine Chloride (Anectine) 200 mg STK-MED ONCE .ROUTE ; Start 05/08/19 at 19:34; Stop 05/08/19 at 19:34; Status DC Rocuronium Soldier (Zemuron) 50 mg STK-MED ONCE .ROUTE ; Start 05/08/19 at 19: 34; Stop 05/08/19 at 19:34; Status DC Ondansetron HCl (Zofran) 4 mg PRN Q6HRS PRN IV NAUSEA/VOMITING; Start 05/08/19 at 19:45; Stop 05/08/19 at 23:59; Status DC Fentanyl Citrate (Fentanyl 2ml Vial) 25 mcg PRN Q5MIN PRN IV MILD PAIN 1-3; Start 05/08/19 at 19:45; Stop 05/08/19 at 23:59; Status DC Fentanyl Citrate (Fentanyl 2ml Vial) 50 mcg PRN Q5MIN PRN IV MODERATE TO SEVERE PAIN; Start 05/08/19 at 19:45; Stop 05/08/19 at 23:59; Status DC Ringer's Solution 1,000 ml @ 30 mls/hr Q24H IV Last administered on 05/08/19at 23:06; Start 05/08/19 at 20:00; Stop 05/09/19 at 01:00; Status DC Prochlorperazine Edisylate (Compazine) 5 mg PACU PRN PRN IV NAUSEA, MRX1; Start 05/08/19 at 19:45; Stop 05/08/19 at 23:59; Status DC Insulin Human Lispro (HumaLOG VIAL for OP,RR ONLY) 0-10 units PRN Q1HR PRN SQ PER PROTOCOL; Start 05/08/19 at 19:45; Stop 05/08/19 at 23:59; Status DC Bupivacaine HCl/ Epinephrine Bitart (Sensorcaine-Epi 0.25%-1:[id number] Mpf) 30 ml 1X ONCE INJ Last administered on 05/08/19at 20:32; Start 05/08/19 at 20:00; Stop 05/08/19 at 20:01; Status DC Ketamine HCl (Ketamine) 50 mg STK-MED ONCE .ROUTE ; Start 05/08/19 at 20:12; Stop 05/08/19 at 20:12; Status DC Phenylephrine HCl (PHENYLEPHRINE in 0.9% NACL PF) 1 mg STK-MED ONCE IV ; Start 05/08/19 at 20:33; Stop 05/08/19 at 20:33; Status DC Ephedrine Sulfate (ePHEDrine PF IN SALINE SYRINGE) 50 mg STK-MED ONCE IV ; Start 05/08/19 at 20:36; Stop 05/08/19 at 20:36; Status DC Albumin Human 500 ml @ As Directed STK-MED ONCE IV ; Start 05/08/19 at 20:55; Stop 05/08/19 at 20:55; Status DC Glycopyrrolate (Robinul) 1 mg STK-MED ONCE .ROUTE ; Start 05/08/19 at 21:27; Stop 05/08/19 at 21:27; Status DC Neostigmine Methylsulfate (Neostigmine Methylsulfate) 5 mg STK-MED ONCE .ROUTE ; Start 05/08/19 at 21:27; Stop 05/08/19 at 21:27; Status DC Bupivacaine HCl (Sensorcaine Mpf 0.5%) 30 ml STK-MED ONCE .ROUTE ; Start 05/08/19 at 21:39; Stop 05/08/19 at 21:39; Status DC Epinephrine HCl (Adrenalin) 1 mg STK-MED ONCE .ROUTE ; Start 05/08/19 at 21:39; Stop 05/08/19 at 21:39; Status DC Sevoflurane (Ultane) 60 ml STK-MED ONCE IH ; Start 05/08/19 at 21:44; Stop at 21:44; Status DC Sodium Chloride 1,000 ml @ 125 mls/hr Q8H IV Last administered on 05/08/19at 23:45; Start 05/08/19 at 22:00; Stop 05/09/19 at 15:21; Status DC Ondansetron HCl (Zofran) 4 mg PRN Q6HRS PRN IVP NAUSEA/VOMITING 1ST CHOICE; Start 05/08/19 at 22:00 Fluconazole/ Sodium Chloride 100 ml @ 100 mls/hr Q24H IV Last administered on 05/09/19at 21:56; Start 05/08/19 at 22:00 Hydromorphone HCl (Dilaudid) 1 mg PRN Q4HRS PRN IV SEVERE PAIN 7-10 Last administered on 05/10/19at 08:28; Start 05/08/19 at 22:00 Piperacillin Sod/ Tazobactam Sod 3.375 gm/Sodium Chloride 50 ml @ 100 mls/hr Q6HRS IV Last administered on 05/10/19at 06:14; Start 05/09/19 at 00:00 Pantoprazole Sodium (PROTONIX VIAL for IV PUSH) 40 mg DAILY IVP Last administered on 05/10/19at 08:27; Start 05/09/19 at 09:00 Insulin Human Regular 150 unit/ Sodium Chloride 151.5 ml @ 0 mls/hr CONT PRN IV SEE I/O RECORD; Start 05/08/19 at 23:00; Status UNV Insulin Human Regular 150 unit/ Sodium Chloride 151.5 ml @ 0 mls/hr CONT PRN IV SEE I/O RECORD Last administered on 05/08/19at 23:03; Start 05/08/19 at 23:00 Dextrose (Dextrose 50%-Water Syringe) 12.5 gm PRN Q15MIN PRN IV LOW BLOOD SUGAR; Start 05/08/19 at 23:00 Dextrose 250 ml PRN Q15MIN PRN IV LOW BLOOD SUGAR; Start 05/08/19 at 23:00 Albumin Human 500 ml @ 250 mls/hr 1X ONCE IV Last administered on 05/09/19at 00:10; Start 05/09/19 at 00:30; Stop 05/09/19 at 02:29; Status DC Norepinephrine Bitartrate 250 ml @ 20.156 mls/ hr CONT PRN IV SEE I/O RECORD; Start 05/09/19 at 00:00 Dextrose/Sodium Chloride 1,000 ml @ 150 mls/hr Q6H40M IV Last administered on 05/09/19at 12:28; Start 05/09/19 at 08:45; Stop 05/09/19 at 18:30; Status DC Sodium Chloride 500 ml @ 500 mls/hr PRN Q2HR PRN IV SEE COMMENTS; Start 05/09/19 at 11:15 Sodium Chloride 1,000 ml @ 2,190 mls/hr Q28M IV ; Start 05/09/19 at 12:39; Stop 05/09/19 at 13:39; Status DC Sodium Chloride 500 ml @ 1,000 mls/hr PRN Q30MIN PRN IV SEE COMMENTS; Start 05/09/19 at 12:45; Stop 05/09/19 at 12:50; Status DC Norepinephrine Bitartrate 250 ml @ 19.688 mls/ hr CONT PRN IV SEE I/O RECORD; Start 05/09/19 at 12:45; Status Cancel Dobutamine HCl/ Dextrose 250 ml @ 15.75 mls/ hr CONT PRN IV SEE I/O RECORD; Start 05/09/19 at 12:45 Insulin Human Lispro (HumaLOG) 0-7 UNITS TIDWMEALS SQ ; Start 05/09/19 at 17:00; Stop 05/09/19 at 19:36; Status DC Dextrose (Dextrose 50%-Water Syringe) 12.5 gm PRN Q15MIN PRN IV SEE COMMENTS; Start 05/09/19 at 15:30; Status UNV Sodium Chloride 1,000 ml @ 60 mls/hr [id number] IV Last administered on 05/09/19at 21:26; Start 05/09/19 at 15:30 Insulin Human Lispro (HumaLOG) 0-7 UNITS Q6HRS SQ Last administered on 05/10/19at 06:15; Start 05/10/19 at 00:00 Albuterol/ Ipratropium (Duoneb) 3 ml RTQID NEB Last administered on 05/10/19at 11:37; Start 05/10/19 at 08:00 Budesonide (Pulmicort) 0.5 mg RTBID NEB Last administered on 05/10/19at 07:35; Start 05/10/19 at 08:00 Active Scripts Active Reported Venlafaxine Hcl 75 Mg Tablet Unknown Dose PO DAILY Simvastatin 10 Mg Tablet 10 Mg PO DAILY Metformin Hcl 1,000 Mg Tablet 1,000 Mg PO BIDWMEALS Meloxicam 15 Mg Tablet Unknown Dose PO DAILY Lisinopril 10 Mg Tablet Unknown Dose PO DAILY Humalog (Insulin Lispro) 100 Unit/1 Ml Cartridge 100 Unit SQ Sinemet 25-100 Mg Tablet (Carbidopa/Levodopa) 1 Each Tablet 1 Tab PO TID Vitals/I & O Vital Sign - Last 24 Hours 05/09/19 05/09/19 05/09/19 05/09/19 13:00 15:00 16:00 16:00 Temp 97.5 97.5 Pulse 84 94 90 Resp 19 23 23 B/P (MAP) 102/54 (70) 101/52 (68) 98/52 (67) Pulse Ox 93 97 92 O2 Delivery Venturi Mask Venturi Mask Venturi Mask Venturi Mask O2 Flow Rate 15.0 05/09/19 05/09/19 05/09/19 05/09/19 17:00 18:00 19:00 20:00 Pulse 88 82 87 Resp 17 25 18 B/P (MAP) 91/57 (68) 96/53 (67) 92/48 (63) Pulse Ox 94 92 92 O2 Delivery Venturi Mask Venturi Mask Venturi Mask Venturi Mask O2 Flow Rate 15.0 05/09/19 05/09/19 05/09/19 05/09/19 20:00 21:00 22:00 22:31 Temp 99.4 99.4 Pulse 91 92 96 Resp 19 19 22 24 B/P (MAP) 118/59 (78) 110/64 (79) 138/67 (90) Pulse Ox 92 93 93 O2 Delivery Venturi Mask Venturi Mask Venturi Mask 05/09/19 05/09/19 05/10/19 05/10/19 23:00 23:01 00:00 00:00 Temp 99.1 99.1 Pulse 93 85 Resp 22 22 22 B/P (MAP) 122/56 (78) 109/65 (80) Pulse Ox 93 92 O2 Delivery Venturi Mask Venturi Mask Venturi Mask O2 Flow Rate 15.0 05/10/19 05/10/19 05/10/19 05/10/19 01:00 02:00 03:00 04:00 Temp 99.2 99.2 Pulse 91 86 90 89 Resp 24 20 24 20 B/P (MAP) 105/54 (71) 102/52 (69) 140/64 (89) 135/65 (88) Pulse Ox 92 92 96 95 O2 Delivery Venturi Mask Venturi Mask Venturi Mask Venturi Mask 05/10/19 05/10/19 05/10/19 05/10/19 04:00 05:00 06:00 07:00 Pulse 89 95 91 Resp 22 24 20 B/P (MAP) 139/64 (89) 135/68 (90) 141/66 (91) Pulse Ox 95 95 91 O2 Delivery Venturi Mask Venturi Mask Venturi Mask Venturi Mask O2 Flow Rate 15.0 05/10/19 05/10/19 05/10/19 05/10/19 07:38 08:00 08:00 08:28 Temp 97.8 97.8 Pulse 85 Resp 22 20 B/P (MAP) 140/66 (90) Pulse Ox 95 93 95 O2 Delivery Venturi Mask Venturi Mask Venturi Mask mask O2 Flow Rate 15.0 15.0 15.0 05/10/19 05/10/19 05/10/19 08:58 09:00 11:37 Pulse 97 Resp 20 22 B/P (MAP) 147/83 (104) Pulse Ox 93 95 O2 Delivery mask Venturi Mask Venturi Mask O2 Flow Rate 15.0 Intake and Output 05/09/19 05/09/19 05/10/19 15:00 23:00 07:00 Intake Total 1380 ml 820 ml 835 ml Output Total 280 ml 355 ml 1240 ml Balance 1100 ml 465 ml -405 ml HUGH LAW MD May 10, 2019 12:38
--- NOTE | 2019-05-10 13:20 | CONS ---
DATE OF CONSULTATION: 05/10/2019 REFERRING PHYSICIAN: Dr. Xie. REASON FOR CONSULTATION: Peritonitis. HISTORY OF PRESENT ILLNESS: This patient is a 73-year-old male who recently underwent a right shoulder joint replacement on 05/06/2019 at [facility]. He was taking aspirin and Tylenol for pain relief. A couple of days later after eating a small meal, he developed acute onset of abdominal pain, distention, nausea, and vomiting. Imaging revealed free air within the upper abdomen and some ascites. He underwent a diagnostic laparoscopy with open laparotomy on May 08. He was found to have a perforated duodenal ulcer, status post closure with Dawood patch. He developed respiratory failure postop, requiring BiPAP. He underwent a bronchoscopy with BAL yesterday. Cultures pending. He also developed hypotension since improved. He is currently on Zosyn and fluconazole. The patient says he is not having much pain at the moment. He says he is most bothered by the SCDs. He had a low-grade fever of 100 and pancytopenia within the last 24 hours that has since improved. He denies chills, sweats or body aches. His nausea and vomiting have settled down. Denies shortness of air, cough or chest discomfort. PAST MEDICAL HISTORY: History of esophageal ulcers, COPD, CVA, hyperlipidemia, diabetes type 2, depression, anxiety, hypertension. PAST SURGICAL HISTORY: As mentioned above. Right shoulder joint replacement 05/06/2019 at [facility]. SOCIAL HISTORY: The patient is and lives at home. He lives in [facility]. Current smoker. 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 FAMILY HISTORY: Noncontributory. ALLERGIES: SULFA, BACTRIM, CIPROFLOXACIN, CAUSING RASH. Also, CODEINE. MEDICATIONS: Zosyn, fluconazole, Pulmicort, Dilaudid, insulin, DuoNeb, Zofran, and Protonix. REVIEW OF SYSTEMS: Per HPI, otherwise all other review of systems are negative. PHYSICAL EXAMINATION: VITAL SIGNS: Temperature is 99.2, T-max 100, blood pressure 135/68, heart rate 95, respiratory rate 20, pulse oximetry 95% via Ventimask. BMI 32. GENERAL: The patient is propped up in bed, alert, relaxed appearance. HEENT: Pupils equally round. Oropharynx is clear. NG tube. NECK: Supple. LUNGS: Clear to auscultation. HEART: S1, S2 regular. ABDOMEN: Obese, soft, nontender with hypoactive bowel sounds. Surgical dressings are dry and MACKENZIE drain intact. EXTREMITIES: No gross edema or cyanosis. SCDs in place. SKIN: Warm to touch. No signs of rash. NEUROLOGIC: Alert and oriented x3. LABORATORY DATA: Today's WBC 7.1 from 2.5, hemoglobin 9.7, platelets 176,000 from 138,000, segs 45%, bands 30%. Creatinine 2.9, BUN 54, sodium 143, potassium 5.3, glucose 163, AST 96, ALT 48, total bilirubin 0.4, albumin 2.4. Procalcitonin 35.82. Lipase 128. Sputum culture is pending. Chest, abdomen and pelvis CT with contrast showed extraluminal collections of air within the right upper quadrant of the abdomen. Small amount of free air seen within the upper abdomen. Small amount of ascites seen within the abdomen and pelvis. Air and stool seen throughout the colon. No evidence of bowel obstruction. A 7-mm nonobstructing calculus seen within the lower pole of the right kidney. Liver parenchyma has decreased attenuation consistent with fatty infiltration. Recent chest x-ray showed no acute cardiopulmonary process. Lower extremity ultrasound showed no evidence of DVT. IMPRESSION: 1. Perforated duodenal ulcer, status post repair on 05/08/2019. 2. Fever. 3. Pancytopenia, improved. 4. Antibiotic allergy to SULFA and CIPROFLOXACIN, both causing rash. 5. Acute respiratory failure, now on Ventimask, status post bronchoscopy with bronchoalveolar lavage on 05/09/2019. Cultures pending. 6. Acute kidney injury. 7. Nonobstructing calculus of right kidney. 8. Recent right shoulder joint replacement 05/06/2019 at [facility]. PLAN: 1. Continue Zosyn and fluconazole. We will follow up on culture results. 2. Monitor laboratory values and temperature. 3. Supportive care. 4. Discussed with the patient's at bedside. Thank you, Dr. Xie for asking us to participate in this patient's care. Should you have further questions or concerns, please call. NOAH LUO MD DR: CRISTY/kaye JOB#: [id number] / [id number]
--- NOTE | 2019-05-10 14:49 | NUR ---
Spoke with Dr Clemente re IVF, and rate. Labs reviewed, to continue NS at 60ml/hr. Patient continues to be NPO. Have spoke with Dr Begum regarding possibly transferring patient to surgical floor, wants to keep patient in ICU at this time. Patient up in chair at this time, at side.
[2019-05-10] MEDS: IV NORMAL SALINE 1000ML BAG 1,000 ML IV SCH (16:47)
[2019-05-10] MEDS: FLUCONAZOLE 200MG/100ML PREMIX 100 ML IV SCH (22:05)
[2019-05-11] VITALS (18 sets, daily range): BP systolic 127–172; BP diastolic 62–98
[2019-05-11] MEDS: INSULIN LISPRO 300 UNITS/3 ML VIAL. SQ SCH ×4 (06:00→23:33)
[2019-05-11] MEDS: PIPERACILLIN/TAZOBACTAM 3.375 GM in IV NORMAL SALINE 50ML 50 ML IV SCH ×4 (06:24→23:41)
--- NOTE | 2019-05-11 06:44 | PDOC ---
PULMONARY PROGRESS NOTES Subjective on vm 35% fi02, sob, cough better w BD, ICS, has abd pain Vitals Vital Signs Date Time Temp Pulse Resp B/P (MAP) Pulse Ox O2 Delivery O2 Flow Rate FiO2 05/11/19 06:00 98 162/82 (108) 93 Venturi Mask 05/11/19 05:00 22 05/11/19 04:00 12.0 05/11/19 04:00 100.1 100.1 Comments ros as mentioned as above other sys otherwise neg ROS: No Chest Pain General: Alert, Oriented X4 HEENT: Other (nc at perrl nose throat clear neck no lad no thyromegaly) Lungs: Other (deminished bs) Cardiovascular: S1, S2 Abdomen: Soft, Non-tender, Other (no mass) Neuro Exam: Alert Extremities: No Edema Skin: Warm Labs Laboratory Tests Test 05/09/19 06:59 05/09/19 08:06 05/09/19 09:23 05/09/19 10:15 Glucose (Fingerstick) 118 mg/dL (70-99) 135 mg/dL (70-99) 169 mg/dL (70-99) Fibrinogen 729 mg/dL (200-440) D-Dimer (Zoila) 6.91 ug/mlFEU (0.00-0.50) Sodium Level 139 mmol/L (136-145) Potassium Level 5.7 mmol/L (3.5-5.1) Chloride Level 104 mmol/L (98-107) Carbon Dioxide Level 26 mmol/L (21-32) Anion Gap 9 (6-14) Blood Urea Nitrogen 46 mg/dL (8-26) Creatinine 2.5 mg/dL (0.7-1.3) Estimated GFR (Cockcroft-Gault) 25.4 BUN/Creatinine Ratio 18 (6-20) Glucose Level 197 mg/dL (70-99) Calcium Level 7.6 mg/dL (8.5-10.1) Phosphorus Level 3.0 mg/dL (2.6-4.7) Magnesium Level 1.7 mg/dL (1.8-2.4) Total Bilirubin 0.4 mg/dL (0.2-1.0) Aspartate Amino Transf (AST/SGOT) 110 U/L (15-37) Alanine Aminotransferase (ALT/SGPT) 50 U/L (16-63) Alkaline Phosphatase 43 U/L (46-116) Total Protein 5.5 g/dL (6.4-8.2) Albumin 2.6 g/dL (3.4-5.0) Albumin/Globulin Ratio 0.9 (1.0-1.7) Procalcitonin 35.82 ng/mL (0.00-0.10) Test 05/09/19 10:26 05/09/19 10:30 05/09/19 10:49 05/09/19 11:35 Glucose (Fingerstick) 200 mg/dL (70-99) 176 mg/dL (70-99) 175 mg/dL (70-99) Sodium Level 140 mmol/L (136-145) Potassium Level 5.8 mmol/L (3.5-5.1) Chloride Level 106 mmol/L (98-107) Carbon Dioxide Level 23 mmol/L (21-32) Anion Gap 11 (6-14) Blood Urea Nitrogen 53 mg/dL (8-26) Creatinine 3.1 mg/dL (0.7-1.3) Estimated GFR (Cockcroft-Gault) 19.8 Glucose Level 190 mg/dL (70-99) Calcium Level 7.7 mg/dL (8.5-10.1) Test 05/09/19 12:34 05/09/19 13:40 05/09/19 14:23 05/09/19 16:13 Glucose (Fingerstick) 161 mg/dL (70-99) 129 mg/dL (70-99) 167 mg/dL (70-99) Ionized Calcium 0.98 mmol/L (1.13-1.32) Test 05/09/19 23:58 05/10/19 05:40 05/10/19 06:06 05/10/19 12:42 Glucose (Fingerstick) 169 mg/dL (70-99) 152 mg/dL (70-99) 127 mg/dL (70-99) White Blood Count 7.1 x10^3/uL (4.0-11.0) Red Blood Count 3.05 x10^6/uL (4.30-5.70) Hemoglobin 9.7 g/dL (13.0-17.5) Hematocrit 29.2 % (39.0-53.0) Mean Corpuscular Volume 96 fL (79-100) Mean Corpuscular Hemoglobin 32 pg (25-35) Mean Corpuscular Hemoglobin Concent 33 g/dL (31-37) Red Cell Distribution Width 14.1 % (11.5-14.5) Platelet Count 176 x10^3/uL (140-400) Neutrophils (%) (Auto) 83 % (31-73) Lymphocytes (%) (Auto) 7 % (24-48) Monocytes (%) (Auto) 9 % (0-9) Eosinophils (%) (Auto) 1 % (0-3) Basophils (%) (Auto) 0 % (0-3) Neutrophils # (Auto) 6.0 x10^3/uL (1.8-7.7) Lymphocytes # (Auto) 0.5 x10^3/uL (1.0-4.8) Monocytes # (Auto) 0.6 x10^3/uL (0.0-1.1) Eosinophils # (Auto) 0.1 x10^3/uL (0.0-0.7) Basophils # (Auto) 0.0 x10^3/uL (0.0-0.2) Sodium Level 143 mmol/L (136-145) Potassium Level 5.3 mmol/L (3.5-5.1) Chloride Level 106 mmol/L (98-107) Carbon Dioxide Level 23 mmol/L (21-32) Anion Gap 14 (6-14) Blood Urea Nitrogen 54 mg/dL (8-26) Creatinine 2.9 mg/dL (0.7-1.3) Estimated GFR (Cockcroft-Gault) 21.4 BUN/Creatinine Ratio 19 (6-20) Glucose Level 163 mg/dL (70-99) Calcium Level 8.1 mg/dL (8.5-10.1) Total Bilirubin 0.4 mg/dL (0.2-1.0) Aspartate Amino Transf (AST/SGOT) 96 U/L (15-37) Alanine Aminotransferase (ALT/SGPT) 48 U/L (16-63) Alkaline Phosphatase 47 U/L (46-116) Total Protein 6.3 g/dL (6.4-8.2) Albumin 2.4 g/dL (3.4-5.0) Albumin/Globulin Ratio 0.6 (1.0-1.7) Test 05/10/19 18:03 05/10/19 23:49 05/11/19 06:20 Glucose (Fingerstick) 164 mg/dL (70-99) 198 mg/dL (70-99) 176 mg/dL (70-99) Laboratory Tests Test 05/10/19 12:42 05/10/19 18:03 05/10/19 23:49 05/11/19 06:20 Glucose (Fingerstick) 127 mg/dL (70-99) 164 mg/dL (70-99) 198 mg/dL (70-99) 176 mg/dL (70-99) Medications Active Scripts Medications Dose Route/Sig Max Daily Dose Days Date Category Venlafaxine Hcl 75 Mg Tablet Unknown Dose PO DAILY 02/18/19 Reported Simvastatin 10 Mg Tablet 10 Mg PO DAILY 02/18/19 Reported Metformin Hcl 1,000 Mg Tablet 1,000 Mg PO BIDWMEALS 02/18/19 Reported Meloxicam 15 Mg Tablet Unknown Dose PO DAILY 02/18/19 Reported Lisinopril 10 Mg Tablet Unknown Dose PO DAILY 02/18/19 Reported Humalog (Insulin Lispro) 100 Unit/1 Ml Cartridge 100 Unit SQ 02/18/19 Reported Sinemet 25-100 Mg Tablet (Carbidopa/Levodopa) 1 Each Tablet 1 Tab PO TID 02/18/19 Reported Comments cxr, ? mild atelectasis Impression . IMPRESSION: 1. Expected acute hypoxemic respiratory failure status post repair of a perforated duodenal ulcer. 2. Status post laparoscopy with open laparotomy for closure of a duodenal ulcer with Dawood patch. 3. Acute exacerbation of chronic obstructive pulmonary disease. 4. Tobacco dependence. 5. Hypertension. 6. Recent right shoulder repair. 7. Hypotension. 8. Fever. 9. Possible sepsis present upon admission. Plan . PLAN: 1. BiPAP prn. 2. titrate fio2 to keep sat 92% 3. Pain management. 4. IV antibiotics per id, Zosyn and fluconazole 5. DVT and GI prophylaxis. 6. cont BD, ICS 7. IS 8. quit smoking for ever discussed w rn, pt OPAL YANEZ MD May 11, 2019 06:44
--- NOTE | 2019-05-11 08:34 | PDOC ---
Infectious Disease Note Subjective Subjective Abdominal pain aggravated by cough, otherwise not too bad Slept 3 hours last night, had a visual hallucination of seeing "a blond doctor" Fever Tmax 100.1 Some SOA when feeling stressed Venti mask, FiO2 35% ROS ROS per HPI Vital Sign Vital Signs Vital Signs Date Time Temp Pulse Resp B/P (MAP) Pulse Ox O2 Delivery O2 Flow Rate FiO2 05/11/19 07:00 90 19 166/83 (110) 92 Venturi Mask 05/11/19 04:00 12.0 05/11/19 04:00 100.1 100.1 Physical Exam PHYSICAL EXAM GENERAL: Sitting in the chair, alert, NAD HEENT: Pupils equally round. Oropharynx is clear. NG tube. NECK: Supple. LUNGS: Clear to auscultation. HEART: S1, S2 regular. ABDOMEN: Obese, soft, nontender with hypoactive bowel sounds. Surgical dressings are dry and MACKENZIE drain intact. EXTREMITIES: No gross edema or cyanosis. SCDs in place. Right shoulder incision well-approx stable, clean. SKIN: Warm to touch. No signs of rash. NEUROLOGIC: Alert and oriented x3. Labs Lab Laboratory Tests Test 05/10/19 12:42 05/10/19 18:03 05/10/19 23:49 05/11/19 06:20 Glucose (Fingerstick) 127 mg/dL (70-99) 164 mg/dL (70-99) 198 mg/dL (70-99) 176 mg/dL (70-99) Objective Assessment Perforated duodenal ulcer s/p repair, 05/08 ? cultures Fever Pancytopenia - improved Abx allergy: Sulfa and cipro w/ rash Acute respiratory failure, now on venti mask -s/p Bronchoscopy with BAL, 05/09. mucous plugging, culture pending GREGG Nonobstructing calculus of the right kidney. Recent right shoulder joint replacement, 05/06 at [facility] Plan Plan of Care Continue Zosyn and fluconazole f/u cultures f/u todays labs D/w at bedside D/w nursing Patient seen and examined. Chart reviewed in detail. Case discussed with CHIEF DIGITAL OFFICER. Agree with above plan EDILBERTO CABRALES APRN May 11, 2019 08:34 NOAH LUO MD May 11, 2019 18:58
[2019-05-11] MEDS: IPRATRPIUM/ALBUTEROL 0.5/2.5MG 3 ML NEBU. NEB SCH ×4 (08:54→20:06)
[2019-05-11] MEDS: BUDESONIDE 0.5 MG/2 ML NEBU. NEB SCH ×2 (08:54→20:06)
[2019-05-11] MEDS: PANTOPRAZOLE IV PUSH 40 MG VIAL. IVP SCH (09:43)
[2019-05-11 10:50] LABS: CALCIUM 8.9 mg/dL (8.5-10.1); CREATININE 2.1 mg/dL (0.7-1.3); GFR 31.1; POTASSIUM 4.6 mmol/L (3.5-5.1)
--- NOTE | 2019-05-11 11:01 | PDOC ---
PROGRESS NOTES History of Present Illness History of Present Illness VTE Prophylaxis Ordered VTE Prophylaxis Devices: Contraindicated VTE Pharmacological Prophylaxi: Contraindicated Assessment/Plan Assessment/Plan impression RESPIRATORY FAILURE SEVERE SEPSIS severe protein-caloric malnutrition FREDERICK Perforated viscus with free air peritonitis //Perforated duodenal ulcer Extraluminal collections of air are seen within the right upper quadrant of the abdomen. A small amount of free air is seen within the upper abdomen. Small amount of ascites is seen within the abdomen and pelvis. /// bowel perforation.// PERITONITIS HTN, Fair control plan ADMIT ICU Consult gen surgery nephrology consult PULM CONSULT ID FOLLOWING sepsis protocol IV ANTIBIOTICS, iv zosyn, FLUCONAZOLE BLOOD CULTURE VENTURI MASK SUPPORT BRONCH per pulm Diagnostic laparoscopy with open laparotomy and closure of duodenal ulcer and Dawood patch 10-24 PPN at 80cc /hr prn iv hydralazine 10 mg q 4 hrs prn bp support 34 MIN CC TIME Vitals Vitals Vital Signs Date Time Temp Pulse Resp B/P (MAP) Pulse Ox O2 Delivery O2 Flow Rate FiO2 05/11/19 10:00 99.6 105 27 160/77 (104) 94 Venturi Mask 99.6 05/11/19 08:54 9.0 Physical Exam Physical Exam GENERAL: Sitting in the chair, alert, NAD HEENT: Pupils equally round. Oropharynx is clear. NG tube. NECK: Supple. LUNGS: Clear to auscultation. HEART: S1, S2 regular. ABDOMEN: Obese, soft, nontender with hypoactive bowel sounds. Surgical dressings are dry and MACKENZIE drain intact. EXTREMITIES: No gross edema or cyanosis. SCDs in place. Right shoulder incision well-approx stable, clean. SKIN: Warm to touch. No signs of rash. NEUROLOGIC: Alert and oriented x3. General: Alert, Oriented X3, Cooperative, No acute distress, mild distress Heart: Regular rate, Normal S1, Normal S2, No murmurs, Gallops Lungs: Clear, Other (deminished bs) Abdomen: Other Extremities: No clubbing, No cyanosis, No edema, Normal pulses, No tenderness/swelling Skin: No significant lesion Labs LABS Laboratory Tests Test 05/10/19 12:42 05/10/19 18:03 05/10/19 23:49 05/11/19 06:20 Glucose (Fingerstick) 127 mg/dL (70-99) 164 mg/dL (70-99) 198 mg/dL (70-99) 176 mg/dL (70-99) Test 05/11/19 09:53 Sodium Level 146 mmol/L (136-145) Potassium Level 4.6 mmol/L (3.5-5.1) Chloride Level 109 mmol/L (98-107) Carbon Dioxide Level 24 mmol/L (21-32) Anion Gap 13 (6-14) Blood Urea Nitrogen 42 mg/dL (8-26) Creatinine 2.1 mg/dL (0.7-1.3) Estimated GFR (Cockcroft-Gault) 31.1 Glucose Level 177 mg/dL (70-99) Calcium Level 8.9 mg/dL (8.5-10.1) Assessment and Plan Assessmemt and Plan Problems Medical Problems: (1) Perforated intestine, nontraumatic Status: Acute Comment Review of Relevant I have reviewed the following items adriano (where applicable) has been applied. Labs Laboratory Tests Test 05/09/19 11:35 05/09/19 12:34 05/09/19 13:40 05/09/19 14:23 Glucose (Fingerstick) 175 mg/dL (70-99) 161 mg/dL (70-99) 129 mg/dL (70-99) Ionized Calcium 0.98 mmol/L (1.13-1.32) Test 05/09/19 16:13 05/09/19 23:58 05/10/19 05:40 05/10/19 06:06 Glucose (Fingerstick) 167 mg/dL (70-99) 169 mg/dL (70-99) 152 mg/dL (70-99) White Blood Count 7.1 x10^3/uL (4.0-11.0) Red Blood Count 3.05 x10^6/uL (4.30-5.70) Hemoglobin 9.7 g/dL (13.0-17.5) Hematocrit 29.2 % (39.0-53.0) Mean Corpuscular Volume 96 fL (79-100) Mean Corpuscular Hemoglobin 32 pg (25-35) Mean Corpuscular Hemoglobin Concent 33 g/dL (31-37) Red Cell Distribution Width 14.1 % (11.5-14.5) Platelet Count 176 x10^3/uL (140-400) Neutrophils (%) (Auto) 83 % (31-73) Lymphocytes (%) (Auto) 7 % (24-48) Monocytes (%) (Auto) 9 % (0-9) Eosinophils (%) (Auto) 1 % (0-3) Basophils (%) (Auto) 0 % (0-3) Neutrophils # (Auto) 6.0 x10^3/uL (1.8-7.7) Lymphocytes # (Auto) 0.5 x10^3/uL (1.0-4.8) Monocytes # (Auto) 0.6 x10^3/uL (0.0-1.1) Eosinophils # (Auto) 0.1 x10^3/uL (0.0-0.7) Basophils # (Auto) 0.0 x10^3/uL (0.0-0.2) Sodium Level 143 mmol/L (136-145) Potassium Level 5.3 mmol/L (3.5-5.1) Chloride Level 106 mmol/L (98-107) Carbon Dioxide Level 23 mmol/L (21-32) Anion Gap 14 (6-14) Blood Urea Nitrogen 54 mg/dL (8-26) Creatinine 2.9 mg/dL (0.7-1.3) Estimated GFR (Cockcroft-Gault) 21.4 BUN/Creatinine Ratio 19 (6-20) Glucose Level 163 mg/dL (70-99) Calcium Level 8.1 mg/dL (8.5-10.1) Total Bilirubin 0.4 mg/dL (0.2-1.0) Aspartate Amino Transf (AST/SGOT) 96 U/L (15-37) Alanine Aminotransferase (ALT/SGPT) 48 U/L (16-63) Alkaline Phosphatase 47 U/L (46-116) Total Protein 6.3 g/dL (6.4-8.2) Albumin 2.4 g/dL (3.4-5.0) Albumin/Globulin Ratio 0.6 (1.0-1.7) Test 05/10/19 12:42 05/10/19 18:03 05/10/19 23:49 05/11/19 06:20 Glucose (Fingerstick) 127 mg/dL (70-99) 164 mg/dL (70-99) 198 mg/dL (70-99) 176 mg/dL (70-99) Test 05/11/19 09:53 Sodium Level 146 mmol/L (136-145) Potassium Level 4.6 mmol/L (3.5-5.1) Chloride Level 109 mmol/L (98-107) Carbon Dioxide Level 24 mmol/L (21-32) Anion Gap 13 (6-14) Blood Urea Nitrogen 42 mg/dL (8-26) Creatinine 2.1 mg/dL (0.7-1.3) Estimated GFR (Cockcroft-Gault) 31.1 Glucose Level 177 mg/dL (70-99) Calcium Level 8.9 mg/dL (8.5-10.1) Laboratory Tests Test 05/10/19 12:42 05/10/19 18:03 05/10/19 23:49 05/11/19 06:20 Glucose (Fingerstick) 127 mg/dL (70-99) 164 mg/dL (70-99) 198 mg/dL (70-99) 176 mg/dL (70-99) Test 05/11/19 09:53 Sodium Level 146 mmol/L (136-145) Potassium Level 4.6 mmol/L (3.5-5.1) Chloride Level 109 mmol/L (98-107) Carbon Dioxide Level 24 mmol/L (21-32) Anion Gap 13 (6-14) Blood Urea Nitrogen 42 mg/dL (8-26) Creatinine 2.1 mg/dL (0.7-1.3) Estimated GFR (Cockcroft-Gault) 31.1 Glucose Level 177 mg/dL (70-99) Calcium Level 8.9 mg/dL (8.5-10.1) Medications Current Medications Fentanyl Citrate (Fentanyl 2ml Vial) 50 mcg PRN Q15MIN PRN IV PAIN GREATER THAN 3/10 Last administered on 05/08/19at 19:27; Start 05/08/19 at 16:30; Stop 05/08/19 at 21:00; Status DC Sodium Chloride 1,000 ml @ 250 mls/hr Q4H IV Last administered on 05/08/19at 16:54; Start 05/08/19 at 16:19; Stop 05/08/19 at 20:18; Status DC Metoclopramide HCl (Reglan Vial) 10 mg 1X ONCE IVP Last administered on 05/08/19at 16:51; Start 05/08/19 at 17:00; Stop 05/08/19 at 17:01; Status DC Diphenhydramine HCl (Benadryl) 25 mg 1X ONCE IVP Last administered on 05/08/19at 16:51; Start 05/08/19 at 17:00; Stop 05/08/19 at 17:01; Status DC Iohexol (Omnipaque 350 Mg/ml) 90 ml 1X ONCE IV Last administered on 05/08/19at 17:45; Start 05/08/19 at 17:30; Stop 05/08/19 at 17:31; Status DC Info (CONTRAST GIVEN -- Rx MONITORING) 1 each PRN DAILY PRN MC SEE COMMENTS; Start 05/08/19 at 17:30; Stop 05/10/19 at 17:29; Status DC Hydromorphone HCl (Dilaudid) 1 mg 1X ONCE IV Last administered on 05/08/19at 18:23; Start 05/08/19 at 18:30; Stop 05/08/19 at 18:31; Status DC Piperacillin Sod/ Tazobactam Sod 3.375 gm/Sodium Chloride 50 ml @ 100 mls/hr 1X ONCE IV Last administered on 05/08/19at 19:06; Start 05/08/19 at 19:00; Stop 05/08/19 at 19:29; Status DC Sodium Chloride 1,000 ml @ 1,000 mls/hr 1X ONCE IV Last administered on 05/08/19at 19:06; Start 05/08/19 at 19:00; Stop 05/08/19 at 19:59; Status DC Ondansetron HCl (Zofran) 4 mg STK-MED ONCE .ROUTE ; Start 05/08/19 at 19:34; Stop 05/08/19 at 19:34; Status DC Propofol 20 ml @ As Directed STK-MED ONCE IV ; Start 05/08/19 at 19:34; Stop 05/08/19 at 19:34; Status DC Lidocaine HCl (Lidocaine Pf 2% Vial) 5 ml STK-MED ONCE .ROUTE ; Start 05/08/19 at 19:34; Stop 05/08/19 at 19:34; Status DC Dexamethasone Sodium Phosphate (Decadron) 4 mg STK-MED ONCE .ROUTE ; Start 05/08/19 at 19:34; Stop 05/08/19 at 19:34; Status DC Fentanyl Citrate (Fentanyl 2ml Vial) 100 mcg STK-MED ONCE .ROUTE ; Start 05/08/19 at 19:34; Stop 05/08/19 at 19:34; Status DC Succinylcholine Chloride (Anectine) 200 mg STK-MED ONCE .ROUTE ; Start 05/08/19 at 19:34; Stop 05/08/19 at 19:34; Status DC Rocuronium Elizabeth (Zemuron) 50 mg STK-MED ONCE .ROUTE ; Start 05/08/19 at 19:34; Stop 05/08/19 at 19:34; Status DC Ondansetron HCl (Zofran) 4 mg PRN Q6HRS PRN IV NAUSEA/VOMITING; Start 05/08/19 at 19:45; Stop 05/08/19 at 23:59; Status DC Fentanyl Citrate (Fentanyl 2ml Vial) 25 mcg PRN Q5MIN PRN IV MILD PAIN 1-3; Start 05/08/19 at 19:45; Stop 05/08/19 at 23:59; Status DC Fentanyl Citrate (Fentanyl 2ml Vial) 50 mcg PRN Q5MIN PRN IV MODERATE TO SEVERE PAIN; Start 05/08/19 at 19:45; Stop 05/08/19 at 23:59; Status DC Ringer's Solution 1,000 ml @ 30 mls/hr Q24H IV Last administered on 05/08/19at 23:06; Start 05/08/19 at 20:00; Stop 05/09/19 at 01:00; Status DC Prochlorperazine Edisylate (Compazine) 5 mg PACU PRN PRN IV NAUSEA, MRX1; Start 05/08/19 at 19:45; Stop 05/08/19 at 23:59; Status DC Insulin Human Lispro (HumaLOG VIAL for OP,RR ONLY) 0-10 units PRN Q1HR PRN SQ PER PROTOCOL; Start 05/08/19 at 19:45; Stop 05/08/19 at 23:59; Status DC Bupivacaine HCl/ Epinephrine Bitart (Sensorcaine-Epi 0.25%-1:552799 Mpf) 30 ml 1X ONCE INJ Last administered on 05/08/19at 20:32; Start 05/08/19 at 20:00; Stop 05/08/19 at 20:01; Status DC Ketamine HCl (Ketamine) 50 mg STK-MED ONCE .ROUTE ; Start 05/08/19 at 20:12; Stop 05/08/19 at 20:12; Status DC Phenylephrine HCl (PHENYLEPHRINE in 0.9% NACL PF) 1 mg STK-MED ONCE IV ; Start 05/08/19 at 20:33; Stop 05/08/19 at 20:33; Status DC Ephedrine Sulfate (ePHEDrine PF IN SALINE SYRINGE) 50 mg STK-MED ONCE IV ; Start 05/08/19 at 20:36; Stop 05/08/19 at 20:36; Status DC Albumin Human 500 ml @ As Directed STK-MED ONCE IV ; Start 05/08/19 at 20:55; Stop 05/08/19 at 20:55; Status DC Glycopyrrolate (Robinul) 1 mg STK-MED ONCE .ROUTE ; Start 05/08/19 at 21:27; Stop 05/08/19 at 21:27; Status DC Neostigmine Methylsulfate (Neostigmine Methylsulfate) 5 mg STK-MED ONCE .ROUTE ; Start 05/08/19 at 21:27; Stop 05/08/19 at 21:27; Status DC Bupivacaine HCl (Sensorcaine Mpf 0.5%) 30 ml STK-MED ONCE .ROUTE ; Start 05/08/19 at 21:39; Stop 05/08/19 at 21:39; Status DC Epinephrine HCl (Adrenalin) 1 mg STK-MED ONCE .ROUTE ; Start 05/08/19 at 21:39; Stop 05/08/19 at 21:39; Status DC Sevoflurane (Ultane) 60 ml STK-MED ONCE IH ; Start 05/08/19 at 21:44; Stop 05/08/19 at 21:44; Status DC Sodium Chloride 1,000 ml @ 125 mls/hr Q8H IV Last administered on 05/08/19at 23:45; Start 05/08/19 at 22:00; Stop 05/09/19 at 15:21; Status DC Ondansetron HCl (Zofran) 4 mg PRN Q6HRS PRN IVP NAUSEA/VOMITING 1ST CHOICE; Start 05/08/19 at 22:00 Fluconazole/ Sodium Chloride 100 ml @ 100 mls/hr Q24H IV Last administered on 05/10/19at 22:05; Start 05/08/19 at 22:00 Hydromorphone HCl (Dilaudid) 1 mg PRN Q4HRS PRN IV SEVERE PAIN 7-10 Last administered on 05/10/19at 22:06; Start 05/08/19 at 22:00 Piperacillin Sod/ Tazobactam Sod 3.375 gm/Sodium Chloride 50 ml @ 100 mls/hr Q6HRS IV Last administered on 05/11/19at 06:24; Start 05/09/19 at 00:00 Pantoprazole Sodium (PROTONIX VIAL for IV PUSH) 40 mg DAILY IVP Last administered on 05/11/19at 09:43; Start 05/09/19 at 09:00 Insulin Human Regular 150 unit/ Sodium Chloride 151.5 ml @ 0 mls/hr CONT PRN IV SEE I/O RECORD; Start 05/08/19 at 23:00; Status UNV Insulin Human Regular 150 unit/ Sodium Chloride 151.5 ml @ 0 mls/hr CONT PRN IV SEE I/O RECORD Last administered on 05/08/19at 23:03; Start 05/08/19 at 23:00 Dextrose (Dextrose 50%-Water Syringe) 12.5 gm PRN Q15MIN PRN IV LOW BLOOD SUGAR; Start 05/08/19 at 23:00 Dextrose 250 ml PRN Q15MIN PRN IV LOW BLOOD SUGAR; Start 05/08/19 at 23:00 Albumin Human 500 ml @ 250 mls/hr 1X ONCE IV Last administered on 05/09/19at 00:10; Start 05/09/19 at 00:30; Stop 05/09/19 at 02:29; Status DC Norepinephrine Bitartrate 250 ml @ 20.156 mls/ hr CONT PRN IV SEE I/O RECORD; Start 05/09/19 at 00:00 Dextrose/Sodium Chloride 1,000 ml @ 150 mls/hr Q6H40M IV Last administered on 05/09/19at 12:28; Start 05/09/19 at 08:45; Stop 05/09/19 at 18:30; Status DC Sodium Chloride 500 ml @ 500 mls/hr PRN Q2HR PRN IV SEE COMMENTS; Start 05/09/19 at 11:15 Sodium Chloride 1,000 ml @ 2,190 mls/hr Q28M IV ; Start 05/09/19 at 12:39; Stop 05/09/19 at 13:39; Status DC Sodium Chloride 500 ml @ 1,000 mls/hr PRN Q30MIN PRN IV SEE COMMENTS; Start 05/09/19 at 12:45; Stop 05/09/19 at 12:50; Status DC Norepinephrine Bitartrate 250 ml @ 19.688 mls/ hr CONT PRN IV SEE I/O RECORD; Start 05/09/19 at 12:45; Status Cancel Dobutamine HCl/ Dextrose 250 ml @ 15.75 mls/ hr CONT PRN IV SEE I/O RECORD; Start 05/09/19 at 12:45 Insulin Human Lispro (HumaLOG) 0-7 UNITS TIDWMEALS SQ ; Start 05/09/19 at 17:00; Stop 05/09/19 at 19:36; Status DC Dextrose (Dextrose 50%-Water Syringe) 12.5 gm PRN Q15MIN PRN IV SEE COMMENTS; Start 05/09/19 at 15:30; Status UNV Sodium Chloride 1,000 ml @ 60 mls/hr [id number] IV Last administered on 1 at 16:47; Start 05/09/19 at 15:30 Insulin Human Lispro (HumaLOG) 0-7 UNITS Q6HRS SQ Last administered on 05/10/19at 06:15; Start 05/10/19 at 00:00 Albuterol/ Ipratropium (Duoneb) 3 ml RTQID NEB Last administered on 05/11/19at 08:54; Start 05/10/19 at 08:00 Budesonide (Pulmicort) 0.5 mg RTBID NEB Last administered on 05/11/19at 08:54; Start 05/10/19 at 08:00 Heparin Sodium (Porcine) (Heparin Sodium) 5,000 unit BID SQ ; Start 05/11/19 at 10:00 Active Scripts Active Reported Venlafaxine Hcl 75 Mg Tablet Unknown Dose PO DAILY Simvastatin 10 Mg Tablet 10 Mg PO DAILY Metformin Hcl 1,000 Mg Tablet 1,000 Mg PO BIDWMEALS Meloxicam 15 Mg Tablet Unknown Dose PO DAILY Lisinopril 10 Mg Tablet Unknown Dose PO DAILY Humalog (Insulin Lispro) 100 Unit/1 Ml Cartridge 100 Unit SQ Sinemet 25-100 Mg Tablet (Carbidopa/Levodopa) 1 Each Tablet 1 Tab PO TID Vitals/I & O Vital Sign - Last 24 Hours 05/10/19 05/10/19 05/10/19 05/10/19 11:37 12:00 12:00 12:26 Temp 97.8 97.8 Pulse 100 Resp 24 22 B/P (MAP) 176/72 (106) Pulse Ox 95 92 95 O2 Delivery Venturi Mask Venturi Mask Venturi Mask Venturi Mask O2 Flow Rate 15.0 15.0 15.0 05/10/19 05/10/19 05/10/19 05/10/19 12:56 13:00 14:00 15:00 Pulse 108 116 110 Resp 20 15 33 24 B/P (MAP) 158/67 (97) 124/65 (84) 117/60 (79) Pulse Ox 95 91 92 94 O2 Delivery Venturi Mask Venturi Mask Venturi Mask Venturi Mask O2 Flow Rate 15.0 05/10/19 05/10/19 05/10/19 05/10/19 15:31 16:00 16:00 17:00 Temp 99.9 99.9 Pulse 116 114 Resp 30 25 B/P (MAP) 179/84 (115) 179/84 (115) Pulse Ox 94 94 96 O2 Delivery Venturi Mask Venturi Mask Venturi Mask Venturi Mask O2 Flow Rate 12.0 12.0 05/10/19 05/10/19 05/10/19 05/10/19 18:00 19:00 20:00 20:00 Temp 100.0 100.0 Pulse 118 112 106 Resp 22 22 22 B/P (MAP) 169/75 (106) 168/74 (105) 155/66 (95) Pulse Ox 96 91 94 O2 Delivery Venturi Mask Venturi Mask Venturi Mask Venturi Mask O2 Flow Rate 12.0 05/10/19 05/10/19 05/10/19 05/10/19 20:49 20:50 21:00 22:00 Pulse 108 106 Resp 20 20 B/P (MAP) 152/66 (94) 143/64 (90) Pulse Ox 94 94 91 93 O2 Delivery Venturi Mask Venturi Mask Venturi Mask Venturi Mask O2 Flow Rate 9.0 9.0 05/10/19 05/10/19 05/10/19 05/11/19 22:06 22:36 23:13 00:00 Temp 99.4 99.4 Pulse 101 97 Resp 22 B/P (MAP) 134/46 (75) 140/63 (88) Pulse Ox 92 92 O2 Delivery Venturi Mask Venturi Mask 05/11/19 05/11/19 05/11/19 05/11/19 00:00 01:00 02:00 03:00 Pulse 94 92 96 Resp 20 20 22 B/P (MAP) 152/73 (99) 148/73 (98) 144/62 (89) Pulse Ox 94 92 93 O2 Delivery Venturi Mask Venturi Mask Venturi Mask Venturi Mask O2 Flow Rate 12.0 05/11/19 05/11/19 05/11/19 05/11/19 04:00 04:00 05:00 06:00 Temp 100.1 100.1 Pulse 92 96 98 Resp B/P (MAP) 163/79 (107) 172/98 (122) 162/82 (108) Pulse Ox 92 93 93 O2 Delivery Venturi Mask Venturi Mask Venturi Mask Venturi Mask O2 Flow Rate 12.0 05/11/19 05/11/19 05/11/19 05/11/19 07:00 08:00 08:00 08:54 Pulse 90 85 Resp B/P (MAP) 166/83 (110) 163/82 (109) Pulse Ox 92 94 95 O2 Delivery Venturi Mask Venturi Mask Venturi Mask Venturi Mask O2 Flow Rate 9.0 9.0 05/11/19 05/11/19 09:00 10:00 Temp 99.6 99.6 Pulse 87 105 Resp B/P (MAP) 162/78 (106) 160/77 (104) Pulse Ox 97 94 O2 Delivery Venturi Mask Venturi Mask Intake and Output 05/10/19 05/10/19 05/11/19 15:00 23:00 07:00 Intake Total 50 ml 831 ml 863 ml Output Total 1680 ml 1075 ml Balance 50 ml -849 ml -212 ml JAZMINE COLLINS MD May 11, 2019 11:00
[2019-05-11] MEDS ORDERED: METHYL SALICYLATE/MENTHOL TOPICAL OINTMENT 57GM TUBE. TP PRN (11:30)
[2019-05-11] MEDS ORDERED: PHENOL ORAL SPRAY 177ML BOTTLE. PO PRN (11:30)
[2019-05-11] MEDS ORDERED: hydrALAZINE 20 MG/ML VIAL. IVP PRN (11:45)
[2019-05-11] MEDS: AMINO AC 3%/ELECTROLYTE/GLYCER 1,000 ML IV SCH (11:54)
[2019-05-11] MEDS: HEPARIN for SUB-Q USE 5,000 UNIT/ML VIAL. SQ SCH ×2 (11:57→23:25)
--- NOTE | 2019-05-11 12:19 | PDOC ---
PROGRESS NOTES Subjective Subjective SEEN IN FOLLOW UP OF ARF Objective Objective Vital Signs Date Time Temp Pulse Resp B/P (MAP) Pulse Ox O2 Delivery O2 Flow Rate FiO2 05/11/19 11:52 95 Venturi Mask 9.0 05/11/19 11:00 97 28 157/75 (102) 05/11/19 10:00 99.6 99.6 Intake and Output 05/11/19 07:00 Intake Total 1744 ml Output Total 2755 ml Balance -1011 ml Intake Oral 150 ml IV Total 1594 ml Output Urine Total 2725 ml Drainage Total 30 ml # Voids 1 Physical Exam Abdomen: Other (POST OP AND HAS NG TUBE) Heart: Regular rate, Normal S1, Normal S2, No murmurs, Gallops Extremities: No clubbing, No cyanosis, No edema, Normal pulses, No tenderness/swelling General: Alert, Oriented X3, Cooperative, No acute distress Lungs: Clear to auscultation, Normal air movement Psych/Mental Status: Mental status NL, Mood NL Diagnosis RENAL FAILURE: Acute (Acute tubular necrosis) Assessment Assessment Problems Medical Problems: (1) Perforated intestine, nontraumatic Status: Acute Plan Plan of Care RENAL FUNCTION IS BETTER. APPEARS IN FLUID BALANCE. CONT FREE WATER Comment Review of Relevant I have reviewed the following items adriano (where applicable) has been applied. Labs Laboratory Tests Test 05/09/19 12:34 05/09/19 13:40 05/09/19 14:23 05/09/19 16:13 Glucose (Fingerstick) 161 mg/dL (70-99) 129 mg/dL (70-99) 167 mg/dL (70-99) Ionized Calcium 0.98 mmol/L (1.13-1.32) Test 05/09/19 23:58 05/10/19 05:40 05/10/19 06:06 05/10/19 12:42 Glucose (Fingerstick) 169 mg/dL (70-99) 152 mg/dL (70-99) 127 mg/dL (70-99) White Blood Count 7.1 x10^3/uL (4.0-11.0) Red Blood Count 3.05 x10^6/uL (4.30-5.70) Hemoglobin 9.7 g/dL (13.0-17.5) Hematocrit 29.2 % (39.0-53.0) Mean Corpuscular Volume 96 fL (79-100) Mean Corpuscular Hemoglobin 32 pg (25-35) Mean Corpuscular Hemoglobin Concent 33 g/dL (31-37) Red Cell Distribution Width 14.1 % (11.5-14.5) Platelet Count 176 x10^3/uL (140-400) Neutrophils (%) (Auto) 83 % (31-73) Lymphocytes (%) (Auto) 7 % (24-48) Monocytes (%) (Auto) 9 % (0-9) Eosinophils (%) (Auto) 1 % (0-3) Basophils (%) (Auto) 0 % (0-3) Neutrophils # (Auto) 6.0 x10^3/uL (1.8-7.7) Lymphocytes # (Auto) 0.5 x10^3/uL (1.0-4.8) Monocytes # (Auto) 0.6 x10^3/uL (0.0-1.1) Eosinophils # (Auto) 0.1 x10^3/uL (0.0-0.7) Basophils # (Auto) 0.0 x10^3/uL (0.0-0.2) Sodium Level 143 mmol/L (136-145) Potassium Level 5.3 mmol/L (3.5-5.1) Chloride Level 106 mmol/L (98-107) Carbon Dioxide Level 23 mmol/L (21-32) Anion Gap 14 (6-14) Blood Urea Nitrogen 54 mg/dL (8-26) Creatinine 2.9 mg/dL (0.7-1.3) Estimated GFR (Cockcroft-Gault) 21.4 BUN/Creatinine Ratio 19 (6-20) Glucose Level 163 mg/dL (70-99) Calcium Level 8.1 mg/dL (8.5-10.1) Total Bilirubin 0.4 mg/dL (0.2-1.0) Aspartate Amino Transf (AST/SGOT) 96 U/L (15-37) Alanine Aminotransferase (ALT/SGPT) 48 U/L (16-63) Alkaline Phosphatase 47 U/L (46-116) Total Protein 6.3 g/dL (6.4-8.2) Albumin 2.4 g/dL (3.4-5.0) Albumin/Globulin Ratio 0.6 (1.0-1.7) Test 05/10/19 18:03 05/10/19 23:49 05/11/19 06:20 05/11/19 09:53 Glucose (Fingerstick) 164 mg/dL (70-99) 198 mg/dL (70-99) 176 mg/dL (70-99) Sodium Level 146 mmol/L (136-145) Potassium Level 4.6 mmol/L (3.5-5.1) Chloride Level 109 mmol/L (98-107) Carbon Dioxide Level 24 mmol/L (21-32) Anion Gap 13 (6-14) Blood Urea Nitrogen 42 mg/dL (8-26) Creatinine 2.1 mg/dL (0.7-1.3) Estimated GFR (Cockcroft-Gault) 31.1 Glucose Level 177 mg/dL (70-99) Calcium Level 8.9 mg/dL (8.5-10.1) Test 05/11/19 11:59 Glucose (Fingerstick) 168 mg/dL (70-99) Laboratory Tests Test 05/10/19 12:42 05/10/19 18:03 05/10/19 23:49 05/11/19 06:20 Glucose (Fingerstick) 127 mg/dL (70-99) 164 mg/dL (70-99) 198 mg/dL (70-99) 176 mg/dL (70-99) Test 05/11/19 09:53 05/11/19 11:59 Sodium Level 146 mmol/L (136-145) Potassium Level 4.6 mmol/L (3.5-5.1) Chloride Level 109 mmol/L (98-107) Carbon Dioxide Level 24 mmol/L (21-32) Anion Gap 13 (6-14) Blood Urea Nitrogen 42 mg/dL (8-26) Creatinine 2.1 mg/dL (0.7-1.3) Estimated GFR (Cockcroft-Gault) 31.1 Glucose Level 177 mg/dL (70-99) Calcium Level 8.9 mg/dL (8.5-10.1) Glucose (Fingerstick) 168 mg/dL (70-99) Medications Current Medications Fentanyl Citrate (Fentanyl 2ml Vial) 50 mcg PRN Q15MIN PRN IV PAIN GREATER THAN 3/10 Last administered on 05/08/19at 19:27; Start 05/08/19 at 16:30; Stop 05/08/19 at 21:00; Status DC Sodium Chloride 1,000 ml @ 250 mls/hr Q4H IV Last administered on 05/08/19at 16:54; Start 05/08/19 at 16:19; Stop 05/08/19 at 20:18; Status DC Metoclopramide HCl (Reglan Vial) 10 mg 1X ONCE IVP Last administered on 05/08/19at 16:51; Start 05/08/19 at 17:00; Stop 05/08/19 at 17:01; Status DC Diphenhydramine HCl (Benadryl) 25 mg 1X ONCE IVP Last administered on 05/08/19 16:51; Start 05/08/19 at 17:00; Stop 05/08/19 at 17:01; Status DC Iohexol (Omnipaque 350 Mg/ml) 90 ml 1X ONCE IV Last administered on 05/08/19at 17:45; Start 05/08/19 at 17:30; Stop 05/08/19 at 17:31; Status DC Info (CONTRAST GIVEN -- Rx MONITORING) 1 each PRN DAILY PRN MC SEE COMMENTS; Start 05/08/19 at 17:30; Stop 05/10/19 at 17:29; Status DC Hydromorphone HCl (Dilaudid) 1 mg 1X ONCE IV Last administered on 05/08/19at 18:23; Start 05/08/19 at 18:30; Stop 05/08/19 at 18:31; Status DC Piperacillin Sod/ Tazobactam Sod 3.375 gm/Sodium Chloride 50 ml @ 100 mls/hr 1X ONCE IV Last administered on 05/08/19 19:06; Start 05/08/19 at 19:00; Stop 05/08/19 at 19:29; Status DC Sodium Chloride 1,000 ml @ 1,000 mls/hr 1X ONCE IV Last administered on 05/08/19at 19:06; Start 05/08/19 at 19:00; Stop 05/08/19 at 19:59; Status DC Ondansetron HCl (Zofran) 4 mg STK-MED ONCE .ROUTE ; Start 05/08/19 at 19:34; Stop 05/08/19 at 19:34; Status DC Propofol 20 ml @ As Directed STK-MED ONCE IV ; Start 05/08/19 at 19:34; Stop 05/08/19 at 19:34; Status DC Lidocaine HCl (Lidocaine Pf 2% Vial) 5 ml STK-MED ONCE .ROUTE ; Start 05/08/19 at 19:34; Stop 05/08/19 at 19:34; Status DC Dexamethasone Sodium Phosphate (Decadron) 4 mg STK-MED ONCE .ROUTE ; Start 05/08/19 at 19:34; Stop 05/08/19 at 19:34; Status DC Fentanyl Citrate (Fentanyl 2ml Vial) 100 mcg STK-MED ONCE .ROUTE ; Start 05/08/19 at 19:34; Stop 05/08/19 at 19:34; Status DC Succinylcholine Chloride (Anectine) 200 mg STK-MED ONCE .ROUTE ; Start 05/08/19 at 19:34; Stop 05/08/19 at 19:34; Status DC Rocuronium [place] (Zemuron) 50 mg STK-MED ONCE .ROUTE ; Start 05/08/19 at 19:34; Stop 05/08/19 at 19:34; Status DC Ondansetron HCl (Zofran) 4 mg PRN Q6HRS PRN IV NAUSEA/VOMITING; Start 05/08/19 at 19:45; Stop 05/08/19 at 23:59; Status DC Fentanyl Citrate (Fentanyl 2ml Vial) 25 mcg PRN Q5MIN PRN IV MILD PAIN 1-3; Start 05/08/19 at 19:45; Stop 05/08/19 at 23:59; Status DC Fentanyl Citrate (Fentanyl 2ml Vial) 50 mcg PRN Q5MIN PRN IV MODERATE TO SEVERE PAIN; Start 05/08/19 at 19:45; Stop 05/08/19 at 23:59; Status DC Ringer's Solution 1,000 ml @ 30 mls/hr Q24H IV Last administered on 05/08/19at 23:06; Start 05/08/19 at 20:00; Stop 05/09/19 at 01:00; Status DC Prochlorperazine Edisylate (Compazine) 5 mg PACU PRN PRN IV NAUSEA, MRX1; Start 05/08/19 at 19:45; Stop 05/08/19 at 23:59; Status DC Insulin Human Lispro (HumaLOG VIAL for OP,RR ONLY) 0-10 units PRN Q1HR PRN SQ PER PROTOCOL; Start 05/08/19 at 19:45; Stop 05/08/19 at 23:59; Status DC Bupivacaine HCl/ Epinephrine Bitart (Sensorcaine-Epi 0.25%-1:807204 Mpf) 30 ml 1X ONCE INJ Last administered on 05/08/19at 20:32; Start 05/08/19 at 20:00; Stop 05/08/19 at 20:01; Status DC Ketamine HCl (Ketamine) 50 mg STK-MED ONCE .ROUTE ; Start 05/08/19 at 20:12; Stop 05/08/19 at 20:12; Status DC Phenylephrine HCl (PHENYLEPHRINE in 0.9% NACL PF) 1 mg STK-MED ONCE IV ; Start 05/08/19 at 20:33; Stop 05/08/19 at 20:33; Status DC Ephedrine Sulfate (ePHEDrine PF IN SALINE SYRINGE) 50 mg STK-MED ONCE IV ; Start 05/08/19 at 20:36; Stop 05/08/19 at 20:36; Status DC Albumin Human 500 ml @ As Directed STK-MED ONCE IV ; Start 05/08/19 at 20:55; Stop 05/08/19 at 20:55; Status DC Glycopyrrolate (Robinul) 1 mg STK-MED ONCE .ROUTE ; Start 05/08/19 at 21:27; Stop 05/08/19 at 21:27; Status DC Neostigmine Methylsulfate (Neostigmine Methylsulfate) 5 mg STK-MED ONCE .ROUTE ; Start 05/08/19 at 21:27; Stop 05/08/19 at 21:27; Status DC Bupivacaine HCl (Sensorcaine Mpf 0.5%) 30 ml STK-MED ONCE .ROUTE ; Start 05/08/19 at 21:39; Stop 05/08/19 at 21:39; Status DC Epinephrine HCl (Adrenalin) 1 mg STK-MED ONCE .ROUTE ; Start 05/08/19 at 21:39; Stop 05/08/19 at 21:39; Status DC Sevoflurane (Ultane) 60 ml STK-MED ONCE IH ; Start 05/08/19 at 21:44; Stop 05/08/19 at 21:44; Status DC Sodium Chloride 1,000 ml @ 125 mls/hr Q8H IV Last administered on 05/08/19at 23:45; Start 05/08/19 at 22:00; Stop 05/09/19 at 15:21; Status DC Ondansetron HCl (Zofran) 4 mg PRN Q6HRS PRN IVP NAUSEA/VOMITING 1ST CHOICE; Start 05/08/19 at 22:00 Fluconazole/ Sodium Chloride 100 ml @ 100 mls/hr Q24H IV Last administered on 05/10/19at 22:05; Start 05/08/19 at 22:00 Hydromorphone HCl (Dilaudid) 1 mg PRN Q4HRS PRN IV SEVERE PAIN 7-10 Last administered on 05/10/19at 22:06; Start 05/08/19 at 22:00 Piperacillin Sod/ Tazobactam Sod 3.375 gm/Sodium Chloride 50 ml @ 100 mls/hr Q6HRS IV Last administered on 05/11/19at 11:54; Start 05/09/19 at 00:00 Pantoprazole Sodium (PROTONIX VIAL for IV PUSH) 40 mg DAILY IVP Last administered on 05/11/19at 09:43; Start 05/09/19 at 09:00 Insulin Human Regular 150 unit/ Sodium Chloride 151.5 ml @ 0 mls/hr CONT PRN IV SEE I/O RECORD; Start 05/08/19 at 23:00; Status UNV Insulin Human Regular 150 unit/ Sodium Chloride 151.5 ml @ 0 mls/hr CONT PRN IV SEE I/O RECORD Last administered on 05/08/19at 23:03; Start 05/08/19 at 23:00 Dextrose (Dextrose 50%-Water Syringe) 12.5 gm PRN Q15MIN PRN IV LOW BLOOD SUGAR; Start 05/08/19 at 23:00 Dextrose 250 ml PRN Q15MIN PRN IV LOW BLOOD SUGAR; Start 05/08/19 at 23:00 Albumin Human 500 ml @ 250 mls/hr 1X ONCE IV Last administered on 05/09/19at 00:10; Start 05/09/19 at 00:30; Stop 05/09/19 at 02:29; Status DC Norepinephrine Bitartrate 250 ml @ 20.156 mls/ hr CONT PRN IV SEE I/O RECORD; Start 05/09/19 at 00:00 Dextrose/Sodium Chloride 1,000 ml @ 150 mls/hr Q6H40M IV Last administered on 05/09/19at 12:28; Start 05/09/19 at 08:45; Stop 05/09/19 at 18:30; Status DC Sodium Chloride 500 ml @ 500 mls/hr PRN Q2HR PRN IV SEE COMMENTS; Start 05/09/19 at 11:15 Sodium Chloride 1,000 ml @ 2,190 mls/hr Q28M IV ; Start 05/09/19 at 12:39; Stop 05/09/19 at 13:39; Status DC Sodium Chloride 500 ml @ 1,000 mls/hr PRN Q30MIN PRN IV SEE COMMENTS; Start 05/09/19 at 12:45; Stop 05/09/19 at 12:50; Status DC Norepinephrine Bitartrate 250 ml @ 19.688 mls/ hr CONT PRN IV SEE I/O RECORD; Start 05/09/19 at 12:45; Status Cancel Dobutamine HCl/ Dextrose 250 ml @ 15.75 mls/ hr CONT PRN IV SEE I/O RECORD; Start 05/09/19 at 12:45 Insulin Human Lispro (HumaLOG) 0-7 UNITS TIDWMEALS SQ ; Start 05/09/19 at 17:00; Stop 05/09/19 at 19:36; Status DC Dextrose (Dextrose 50%-Water Syringe) 12.5 gm PRN Q15MIN PRN IV SEE COMMENTS; Start 05/09/19 at 15:30; Status UNV Sodium Chloride 1,000 ml @ 60 mls/hr [id number] IV Last administered on 05/10/19at 16:47; Start 05/09/19 at 15:30 Insulin Human Lispro (HumaLOG) 0-7 UNITS Q6HRS SQ Last administered on 05/10/19at 06:15; Start 05/10/19 at 00:00 Albuterol/ Ipratropium (Duoneb) 3 ml RTQID NEB Last administered on 05/11/19at 11:51; Start 05/10/19 at 08:00 Budesonide (Pulmicort) 0.5 mg RTBID NEB Last administered on 05/11/19at 08:54; Start 05/10/19 at 08:00 Heparin Sodium (Porcine) (Heparin Sodium) 5,000 unit BID SQ Last administered on 05/11/19at 11:57; Start 05/11/19 at 10:00 Phenol (Chloraseptic) 1 spray PRN Q2HR PRN PO SORE THROAT; Start 05/11/19 at 11:30 Multi-Ingredient Ointment (Analgesic [place]) 1 jazlyn PRN QID PRN TP MUSCLE PAIN; Start 05/11/19 at 11:30 Amino Acids/ Glycerin/ Electrolytes 1,000 ml @ 80 mls/hr [id number] IV Last administered on 05/11/19at 11:54; Start 05/11/19 at 12:00 Hydralazine HCl (Apresoline Inj) 10 mg PRN Q4HRS PRN IVP ELEVATED BP, SEE COMMENTS; Start 05/11/19 at 11:45 Active Scripts Active Reported Venlafaxine Hcl 75 Mg Tablet Unknown Dose PO DAILY Simvastatin 10 Mg Tablet 10 Mg PO DAILY Metformin Hcl 1,000 Mg Tablet 1,000 Mg PO BIDWMEALS Meloxicam 15 Mg Tablet Unknown Dose PO DAILY Lisinopril 10 Mg Tablet Unknown Dose PO DAILY Humalog (Insulin Lispro) 100 Unit/1 Ml Cartridge 100 Unit SQ Sinemet 25-100 Mg Tablet (Carbidopa/Levodopa) 1 Each Tablet 1 Tab PO TID Vitals/I & O Vital Sign - Last 24 Hours 05/10/19 05/10/19 05/10/19 05/10/19 12:26 12:56 13:00 14:00 Pulse 108 116 Resp 22 20 15 33 B/P (MAP) 158/67 (97) 124/65 (84) Pulse Ox 95 95 91 92 O2 Delivery Venturi Mask Venturi Mask Venturi Mask Venturi Mask O2 Flow Rate 15.0 15.0 05/10/19 05/10/19 05/10/19 05/10/19 15:00 15:31 16:00 16:00 Temp 99.9 99.9 Pulse 110 116 Resp 24 30 B/P (MAP) 117/60 (79) 179/84 (115) Pulse Ox 94 94 94 O2 Delivery Venturi Mask Venturi Mask Venturi Mask Venturi Mask O2 Flow Rate 12.0 12.0 05/10/19 05/10/19 05/10/19 10/26/19 17:00 18:00 19:00 20:00 Pulse 114 118 112 Resp 22 B/P (MAP) 179/84 (115) 169/75 (106) 168/74 (105) Pulse Ox 96 96 91 O2 Delivery Venturi Mask Venturi Mask Venturi Mask Venturi Mask O2 Flow Rate 12.0 05/10/19 05/10/19 05/10/19 05/10/19 20:00 20:49 20:50 21:00 Temp 100.0 100.0 Pulse 106 108 Resp 22 20 B/P (MAP) 155/66 (95) 152/66 (94) Pulse Ox 94 94 94 91 O2 Delivery Venturi Mask Venturi Mask Venturi Mask Venturi Mask O2 Flow Rate 9.0 9.0 05/10/19 05/10/19 05/10/19 05/10/19 22:00 22:06 22:36 23:13 Pulse 106 101 Resp 20 20 14 22 B/P (MAP) 143/64 (90) 134/46 (75) Pulse Ox 93 92 O2 Delivery Venturi Mask Venturi Mask 05/11/19 05/11/19 05/11/19 05/11/19 00:00 00:00 01:00 02:00 Temp 99.4 99.4 Pulse 97 94 92 Resp 20 B/P (MAP) 140/63 (88) 152/73 (99) 148/73 (98) Pulse Ox 92 94 92 O2 Delivery Venturi Mask Venturi Mask Venturi Mask Venturi Mask O2 Flow Rate 12.0 05/11/19 05/11/19 05/11/19 05/11/19 03:00 04:00 04:00 05:00 Temp 100.1 100.1 Pulse 96 92 96 Resp 22 B/P (MAP) 144/62 (89) 163/79 (107) 172/98 (122) Pulse Ox 93 92 93 O2 Delivery Venturi Mask Venturi Mask Venturi Mask Venturi Mask O2 Flow Rate 12.0 05/11/19 05/11/19 05/11/19 05/11/19 06:00 07:00 08:00 08:00 Pulse 98 90 85 Resp B/P (MAP) 162/82 (108) 166/83 (110) 163/82 (109) Pulse Ox 93 92 94 O2 Delivery Venturi Mask Venturi Mask Venturi Mask Venturi Mask O2 Flow Rate 9.0 05/11/19 05/11/19 05/11/19 05/11/19 08:54 09:00 10:00 11:00 Temp 99.6 99.6 Pulse 87 105 97 Resp B/P (MAP) 162/78 (106) 160/77 (104) 157/75 (102) Pulse Ox 95 97 94 96 O2 Delivery Venturi Mask Venturi Mask Venturi Mask Venturi Mask O2 Flow Rate 9.0 05/11/19 11:52 Pulse Ox 95 O2 Delivery Venturi Mask O2 Flow Rate 9.0 Intake and Output 05/10/19 05/10/19 05/11/19 15:00 23:00 07:00 Intake Total 50 ml 831 ml 863 ml Output Total 1680 ml 1075 ml Balance 50 ml -849 ml -212 ml HUGH LAW MD May 11, 2019 12:18
--- NOTE | 2019-05-11 13:43 | PDOC ---
SURGICAL PROGRESS NOTE Subjective Pt feels better, has been able to wean off oxygen to [place], some incisional pain with cough Vital Signs Vital Signs Date Time Temp Pulse Resp B/P (MAP) Pulse Ox O2 Delivery O2 Flow Rate FiO2 05/11/19 11:52 95 Venturi Mask 9.0 05/11/19 11:00 97 28 157/75 (102) 05/11/19 10:00 99.6 99.6 I&O Intake and Output 05/11/19 07:00 Intake Total 1744 ml Output Total 2755 ml Balance -1011 ml Intake Oral 150 ml IV Total 1594 ml Output Urine Total 2725 ml Drainage Total 30 ml # Voids 1 General: Alert, Oriented X3, Cooperative, mild distress Abdomen: Soft, No tenderness, Other (MACKENZIE serosang) Labs Laboratory Tests Test 05/09/19 14:23 05/09/19 16:13 05/09/19 23:58 05/10/19 05:40 Glucose (Fingerstick) 129 mg/dL (70-99) 167 mg/dL (70-99) 169 mg/dL (70-99) White Blood Count 7.1 x10^3/uL (4.0-11.0) Red Blood Count 3.05 x10^6/uL (4.30-5.70) Hemoglobin 9.7 g/dL (13.0-17.5) Hematocrit 29.2 % (39.0-53.0) Mean Corpuscular Volume 96 fL (79-100) Mean Corpuscular Hemoglobin 32 pg (25-35) Mean Corpuscular Hemoglobin Concent 33 g/dL (31-37) Red Cell Distribution Width 14.1 % (11.5-14.5) Platelet Count 176 x10^3/uL (140-400) Neutrophils (%) (Auto) 83 % (31-73) Lymphocytes (%) (Auto) 7 % (24-48) Monocytes (%) (Auto) 9 % (0-9) Eosinophils (%) (Auto) 1 % (0-3) Basophils (%) (Auto) 0 % (0-3) Neutrophils # (Auto) 6.0 x10^3/uL (1.8-7.7) Lymphocytes # (Auto) 0.5 x10^3/uL (1.0-4.8) Monocytes # (Auto) 0.6 x10^3/uL (0.0-1.1) Eosinophils # (Auto) 0.1 x10^3/uL (0.0-0.7) Basophils # (Auto) 0.0 x10^3/uL (0.0-0.2) Sodium Level 143 mmol/L (136-145) Potassium Level 5.3 mmol/L (3.5-5.1) Chloride Level 106 mmol/L (98-107) Carbon Dioxide Level 23 mmol/L (21-32) Anion Gap 14 (6-14) Blood Urea Nitrogen 54 mg/dL (8-26) Creatinine 2.9 mg/dL (0.7-1.3) Estimated GFR (Cockcroft-Gault) 21.4 BUN/Creatinine Ratio 19 (6-20) Glucose Level 163 mg/dL (70-99) Calcium Level 8.1 mg/dL (8.5-10.1) Total Bilirubin 0.4 mg/dL (0.2-1.0) Aspartate Amino Transf (AST/SGOT) 96 U/L (15-37) Alanine Aminotransferase (ALT/SGPT) 48 U/L (16-63) Alkaline Phosphatase 47 U/L (46-116) Total Protein 6.3 g/dL (6.4-8.2) Albumin 2.4 g/dL (3.4-5.0) Albumin/Globulin Ratio 0.6 (1.0-1.7) Test 05/10/19 06:06 05/10/19 12:42 05/10/19 18:03 05/10/19 23:49 Glucose (Fingerstick) 152 mg/dL (70-99) 127 mg/dL (70-99) 164 mg/dL (70-99) 198 mg/dL (70-99) Test 05/11/19 06:20 05/11/19 09:53 05/11/19 11:59 Glucose (Fingerstick) 176 mg/dL (70-99) 168 mg/dL (70-99) Sodium Level 146 mmol/L (136-145) Potassium Level 4.6 mmol/L (3.5-5.1) Chloride Level 109 mmol/L (98-107) Carbon Dioxide Level 24 mmol/L (21-32) Anion Gap 13 (6-14) Blood Urea Nitrogen 42 mg/dL (8-26) Creatinine 2.1 mg/dL (0.7-1.3) Estimated GFR (Cockcroft-Gault) 31.1 Glucose Level 177 mg/dL (70-99) Calcium Level 8.9 mg/dL (8.5-10.1) Laboratory Tests Test 05/10/19 18:03 05/10/19 23:49 05/11/19 06:20 05/11/19 09:53 Glucose (Fingerstick) 164 mg/dL (70-99) 198 mg/dL (70-99) 176 mg/dL (70-99) Sodium Level 146 mmol/L (136-145) Potassium Level 4.6 mmol/L (3.5-5.1) Chloride Level 109 mmol/L (98-107) Carbon Dioxide Level 24 mmol/L (21-32) Anion Gap 13 (6-14) Blood Urea Nitrogen 42 mg/dL (8-26) Creatinine 2.1 mg/dL (0.7-1.3) Estimated GFR (Cockcroft-Gault) 31.1 Glucose Level 177 mg/dL (70-99) Calcium Level 8.9 mg/dL (8.5-10.1) Test 05/11/19 11:59 Glucose (Fingerstick) 168 mg/dL (70-99) Problem List Problems Medical Problems: (1) Perforated intestine, nontraumatic Status: Acute Assessment/Plan s/p duodenal ulcer repair will clamp NGT and try clears OK to transfer to floor JORGE L CLOUD MD May 11, 2019 13:43
[2019-05-11] MEDS: IV NORMAL SALINE 1000ML BAG 1,000 ML IV SCH (17:30)
[2019-05-11] MEDS: FLUCONAZOLE 200MG/100ML PREMIX 100 ML IV SCH (21:01)
[2019-05-12 03:20] VITALS: BP 151/68
[2019-05-12 04:18] LABS: BASO % 0 % (0-3); EOS # 0.1 x10^3/uL (0.0-0.7); EOS % 2 % (0-3); HEMATOCRIT 27.1 % (39.0-53.0); LYMPH # 0.7 x10^3/uL (1.0-4.8); LYMPH % 8 % (24-48); MEAN CORPUSCULAR HEMOGLOBIN 32 pg (25-35); MEAN CORPUSCULAR HGB CONC 33 g/dL (31-37); MEAN CORPUSCULAR VOLUME 95 fL (79-100); MONO # 0.7 x10^3/uL (0.0-1.1); MONO % 8 % (0-9); NEUT # 6.9 x10^3/uL (1.8-7.7); NEUT % 81 % (31-73); PLATELET COUNT 186 x10^3/uL (140-400); RED BLOOD COUNT 2.84 x10^6/uL (4.30-5.70); RED CELL DISTRIBUTION WIDTH 13.9 % (11.5-14.5); WHITE BLOOD COUNT 8.4 x10^3/uL (4.0-11.0)
[2019-05-12] MEDS: AMINO AC 3%/ELECTROLYTE/GLYCER 1,000 ML IV SCH ×3 (04:58→20:53)
[2019-05-12] MEDS: PIPERACILLIN/TAZOBACTAM 3.375 GM in IV NORMAL SALINE 50ML 50 ML IV SCH ×3 (04:59→16:28)
[2019-05-12] MEDS: INSULIN LISPRO 300 UNITS/3 ML VIAL. SQ SCH ×3 (05:40→17:09)
[2019-05-12 07:00] VITALS: BP 188/90
[2019-05-12] MEDS: IPRATRPIUM/ALBUTEROL 0.5/2.5MG 3 ML NEBU. NEB SCH ×4 (07:23→21:00)
[2019-05-12] MEDS: BUDESONIDE 0.5 MG/2 ML NEBU. NEB SCH ×2 (07:23→21:01)
--- NOTE | 2019-05-12 08:28 | PDOC ---
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: SURGICAL PROGRESS NOTE Subjective tolerating clears and NG clamping pain managed some confusion Vital Signs Vital Signs Date Time Temp Pulse Resp B/P (MAP) Pulse Ox O2 Delivery O2 Flow Rate FiO2 05/12/19 07:45 Nasal Cannula 3.0 05/12/19 07:23 94 05/12/19 03:20 98.1 88 18 151/68 (95) 98.1 I&O Intake and Output 05/12/19 07:00 Intake Total 240 ml Output Total 2190 ml Balance -1950 ml Intake Oral 240 ml Output Urine Total 2100 ml Drainage Total 90 ml General: Cooperative, No acute distress HEENT: Other (ng clamped ) Abdomen: Soft, Other (dressings dry, thang light brownish drainage) Labs Laboratory Tests Test 05/10/19 12:42 05/10/19 18:03 05/10/19 23:49 05/11/19 06:20 Glucose (Fingerstick) 127 mg/dL (70-99) 164 mg/dL (70-99) 198 mg/dL (70-99) 176 mg/dL (70-99) Test 05/11/19 09:53 05/11/19 11:59 05/11/19 16:56 05/11/19 20:58 Sodium Level 146 mmol/L (136-145) Potassium Level 4.6 mmol/L (3.5-5.1) Chloride Level 109 mmol/L (98-107) Carbon Dioxide Level 24 mmol/L (21-32) Anion Gap 13 (6-14) Blood Urea Nitrogen 42 mg/dL (8-26) Creatinine 2.1 mg/dL (0.7-1.3) Estimated GFR (Cockcroft-Gault) 31.1 Glucose Level 177 mg/dL (70-99) Calcium Level 8.9 mg/dL (8.5-10.1) Glucose (Fingerstick) 168 mg/dL (70-99) 212 mg/dL (70-99) 216 mg/dL (70-99) Test 05/11/19 23:28 05/12/19 02:40 05/12/19 05:36 05/12/19 07:50 Glucose (Fingerstick) 222 mg/dL (70-99) 194 mg/dL (70-99) 213 mg/dL (70-99) White Blood Count 8.4 x10^3/uL (4.0-11.0) Red Blood Count 2.84 x10^6/uL (4.30-5.70) Hemoglobin 9.0 g/dL (13.0-17.5) Hematocrit 27.1 % (39.0-53.0) Mean Corpuscular Volume 95 fL (79-100) Mean Corpuscular Hemoglobin 32 pg (25-35) Mean Corpuscular Hemoglobin Concent 33 g/dL (31-37) Red Cell Distribution Width 13.9 % (11.5-14.5) Platelet Count 186 x10^3/uL (140-400) Neutrophils (%) (Auto) 81 % (31-73) Lymphocytes (%) (Auto) 8 % (24-48) Monocytes (%) (Auto) 8 % (0-9) Eosinophils (%) (Auto) 2 % (0-3) Basophils (%) (Auto) 0 % (0-3) Neutrophils # (Auto) 6.9 x10^3/uL (1.8-7.7) Lymphocytes # (Auto) 0.7 x10^3/uL (1.0-4.8) Monocytes # (Auto) 0.7 x10^3/uL (0.0-1.1) Eosinophils # (Auto) 0.1 x10^3/uL (0.0-0.7) Basophils # (Auto) 0.0 x10^3/uL (0.0-0.2) Laboratory Tests Test 05/11/19 09:53 05/11/19 11:59 05/11/19 16:56 05/11/19 20:58 Sodium Level 146 mmol/L (136-145) Potassium Level 4.6 mmol/L (3.5-5.1) Chloride Level 109 mmol/L (98-107) Carbon Dioxide Level 24 mmol/L (21-32) Anion Gap 13 (6-14) Blood Urea Nitrogen 42 mg/dL (8-26) Creatinine 2.1 mg/dL (0.7-1.3) Estimated GFR (Cockcroft-Gault) 31.1 Glucose Level 177 mg/dL (70-99) Calcium Level 8.9 mg/dL (8.5-10.1) Glucose (Fingerstick) 168 mg/dL (70-99) 212 mg/dL (70-99) 216 mg/dL (70-99) Test 05/11/19 23:28 05/12/19 02:40 05/12/19 05:36 05/12/19 07:50 Glucose (Fingerstick) 222 mg/dL (70-99) 194 mg/dL (70-99) 213 mg/dL (70-99) White Blood Count 8.4 x10^3/uL (4.0-11.0) Red Blood Count 2.84 x10^6/uL (4.30-5.70) Hemoglobin 9.0 g/dL (13.0-17.5) Hematocrit 27.1 % (39.0-53.0) Mean Corpuscular Volume 95 fL (79-100) Mean Corpuscular Hemoglobin 32 pg (25-35) Mean Corpuscular Hemoglobin Concent 33 g/dL (31-37) Red Cell Distribution Width 13.9 % (11.5-14.5) Platelet Count 186 x10^3/uL (140-400) Neutrophils (%) (Auto) 81 % (31-73) Lymphocytes (%) (Auto) 8 % (24-48) Monocytes (%) (Auto) 8 % (0-9) Eosinophils (%) (Auto) 2 % (0-3) Basophils (%) (Auto) 0 % (0-3) Neutrophils # (Auto) 6.9 x10^3/uL (1.8-7.7) Lymphocytes # (Auto) 0.7 x10^3/uL (1.0-4.8) Monocytes # (Auto) 0.7 x10^3/uL (0.0-1.1) Eosinophils # (Auto) 0.1 x10^3/uL (0.0-0.7) Basophils # (Auto) 0.0 x10^3/uL (0.0-0.2) Problem List Problems Medical Problems: (1) Perforated intestine, nontraumatic Status: Acute Assessment/Plan s/p DU repair dc NG continue clears oral PPI JAZMINE URIBE MD 05/12/19 0931: SURGICAL PROGRESS NOTE Assessment/Plan Patient improving. Agree with Kris's assessment and plan. FABI MASSEY [employer]X MA[employer]GER May 12, 2019 08:28 JAZMINE URIBE MD May 12, 2019 09:31
[2019-05-12] MEDS: IV NORMAL SALINE 1000ML BAG 1,000 ML IV SCH (08:39)
[2019-05-12] MEDS: PANTOPRAZOLE 40 MG TABLET.DR. PO SCH (08:40)
[2019-05-12] MEDS: HEPARIN for SUB-Q USE 5,000 UNIT/ML VIAL. SQ SCH ×2 (08:49→21:02)
--- NOTE | 2019-05-12 09:22 | PDOC ---
PULMONARY PROGRESS NOTES Subjective PT ON NC O2 SOA WITH LITTLE EXERTION Vitals Vital Signs Date Time Temp Pulse Resp B/P (MAP) Pulse Ox O2 Delivery O2 Flow Rate FiO2 05/12/19 07:45 Nasal Cannula 3.0 05/12/19 07:23 94 05/12/19 07:00 99.1 94 18 188/90 (122) 99.1 ROS: No Chest Pain General: Alert, Oriented X4 HEENT: Other (nc at perrl nose throat clear neck no lad no thyromegaly) Lungs: Clear, Other (deminished bs) Cardiovascular: S1, S2 Abdomen: Soft, Non-tender, Other (no mass) Neuro Exam: Alert Extremities: No Edema Skin: Warm Labs Laboratory Tests Test 05/10/19 12:42 05/10/19 18:03 05/10/19 23:49 05/11/19 06:20 Glucose (Fingerstick) 127 mg/dL (70-99) 164 mg/dL (70-99) 198 mg/dL (70-99) 176 mg/dL (70-99) Test 05/11/19 09:53 05/11/19 11:59 05/11/19 16:56 05/11/19 20:58 Sodium Level 146 mmol/L (136-145) Potassium Level 4.6 mmol/L (3.5-5.1) Chloride Level 109 mmol/L (98-107) Carbon Dioxide Level 24 mmol/L (21-32) Anion Gap 13 (6-14) Blood Urea Nitrogen 42 mg/dL (8-26) Creatinine 2.1 mg/dL (0.7-1.3) Estimated GFR (Cockcroft-Gault) 31.1 Glucose Level 177 mg/dL (70-99) Calcium Level 8.9 mg/dL (8.5-10.1) Glucose (Fingerstick) 168 mg/dL (70-99) 212 mg/dL (70-99) 216 mg/dL (70-99) Test 05/11/19 23:28 05/12/19 02:40 05/12/19 05:36 05/12/19 07:50 Glucose (Fingerstick) 222 mg/dL (70-99) 194 mg/dL (70-99) 213 mg/dL (70-99) White Blood Count 8.4 x10^3/uL (4.0-11.0) Red Blood Count 2.84 x10^6/uL (4.30-5.70) Hemoglobin 9.0 g/dL (13.0-17.5) Hematocrit 27.1 % (39.0-53.0) Mean Corpuscular Volume 95 fL (79-100) Mean Corpuscular Hemoglobin 32 pg (25-35) Mean Corpuscular Hemoglobin Concent 33 g/dL (31-37) Red Cell Distribution Width 13.9 % (11.5-14.5) Platelet Count 186 x10^3/uL (140-400) Neutrophils (%) (Auto) 81 % (31-73) Lymphocytes (%) (Auto) 8 % (24-48) Monocytes (%) (Auto) 8 % (0-9) Eosinophils (%) (Auto) 2 % (0-3) Basophils (%) (Auto) 0 % (0-3) Neutrophils # (Auto) 6.9 x10^3/uL (1.8-7.7) Lymphocytes # (Auto) 0.7 x10^3/uL (1.0-4.8) Monocytes # (Auto) 0.7 x10^3/uL (0.0-1.1) Eosinophils # (Auto) 0.1 x10^3/uL (0.0-0.7) Basophils # (Auto) 0.0 x10^3/uL (0.0-0.2) Laboratory Tests Test 05/11/19 09:53 05/11/19 11:59 05/11/19 16:56 05/11/19 20:58 Sodium Level 146 mmol/L (136-145) Potassium Level 4.6 mmol/L (3.5-5.1) Chloride Level 109 mmol/L (98-107) Carbon Dioxide Level 24 mmol/L (21-32) Anion Gap 13 (6-14) Blood Urea Nitrogen 42 mg/dL (8-26) Creatinine 2.1 mg/dL (0.7-1.3) Estimated GFR (Cockcroft-Gault) 31.1 Glucose Level 177 mg/dL (70-99) Calcium Level 8.9 mg/dL (8.5-10.1) Glucose (Fingerstick) 168 mg/dL (70-99) 212 mg/dL (70-99) 216 mg/dL (70-99) Test 05/11/19 23:28 05/12/19 02:40 05/12/19 05:36 05/12/19 07:50 Glucose (Fingerstick) 222 mg/dL (70-99) 194 mg/dL (70-99) 213 mg/dL (70-99) White Blood Count 8.4 x10^3/uL (4.0-11.0) Red Blood Count 2.84 x10^6/uL (4.30-5.70) Hemoglobin 9.0 g/dL (13.0-17.5) Hematocrit 27.1 % (39.0-53.0) Mean Corpuscular Volume 95 fL (79-100) Mean Corpuscular Hemoglobin 32 pg (25-35) Mean Corpuscular Hemoglobin Concent 33 g/dL (31-37) Red Cell Distribution Width 13.9 % (11.5-14.5) Platelet Count 186 x10^3/uL (140-400) Neutrophils (%) (Auto) 81 % (31-73) Lymphocytes (%) (Auto) 8 % (24-48) Monocytes (%) (Auto) 8 % (0-9) Eosinophils (%) (Auto) 2 % (0-3) Basophils (%) (Auto) 0 % (0-3) Neutrophils # (Auto) 6.9 x10^3/uL (1.8-7.7) Lymphocytes # (Auto) 0.7 x10^3/uL (1.0-4.8) Monocytes # (Auto) 0.7 x10^3/uL (0.0-1.1) Eosinophils # (Auto) 0.1 x10^3/uL (0.0-0.7) Basophils # (Auto) 0.0 x10^3/uL (0.0-0.2) Medications Active Scripts Medications Dose Route/Sig Max Daily Dose Days Date Category Venlafaxine Hcl 75 Mg Tablet Unknown Dose PO DAILY 02/18/19 Reported Simvastatin 10 Mg Tablet 10 Mg PO DAILY 02/18/19 Reported Metformin Hcl 1,000 Mg Tablet 1,000 Mg PO BIDWMEALS 02/18/19 Reported Meloxicam 15 Mg Tablet Unknown Dose PO DAILY 02/18/19 Reported Lisinopril 10 Mg Tablet Unknown Dose PO DAILY 02/18/19 Reported Humalog (Insulin Lispro) 100 Unit/1 Ml Cartridge 100 Unit SQ 02/18/19 Reported Sinemet 25-100 Mg Tablet (Carbidopa/Levodopa) 1 Each Tablet 1 Tab PO TID 02/18/19 Reported Impression . IMPRESSION: 1. Expected acute hypoxemic respiratory failure status post repair of a perforated duodenal ulcer. 2. Status post laparoscopy with open laparotomy for closure of a duodenal ulcer with Dawood patch. 3. Acute exacerbation of chronic obstructive pulmonary disease. 4. Tobacco dependence. 5. Hypertension. 6. Recent right shoulder repair. 7. Hypotension. 8. Fever. 9. Possible sepsis present upon admission. Plan . 02 NEEDS REHAB D/C SMOKING CONTINUE SUPPORT TG RAZO MD May 12, 2019 09:22
--- NOTE | 2019-05-12 09:28 | PDOC ---
Infectious Disease Note Subjective Subjective Doing ok Still not sleeping much Some better ROS ROS o/w neg Vital Sign Vital Signs Vital Signs Date Time Temp Pulse Resp B/P (MAP) Pulse Ox O2 Delivery O2 Flow Rate FiO2 05/12/19 07:45 Nasal Cannula 3.0 05/12/19 07:23 94 05/12/19 07:00 99.1 94 18 188/90 (122) 99.1 Physical Exam PHYSICAL EXAM GENERAL: Sitting on side of bed, alert, NAD HEENT: Pupils equally round. Oropharynx is clear. NG tube. NECK: Supple. LUNGS: Clear to auscultation. HEART: S1, S2 regular. ABDOMEN: Obese, soft, nontender with hypoactive bowel sounds. Surgical dressings are dry and MACKENZIE drain intact. EXTREMITIES: No gross edema or cyanosis. SCDs in place. Right shoulder incision well-approx stable, clean. SKIN: Warm to touch. No signs of rash. NEUROLOGIC: Alert and oriented x3. Labs Lab Laboratory Tests Test 05/11/19 09:53 05/11/19 11:59 05/11/19 16:56 05/11/19 20:58 Sodium Level 146 mmol/L (136-145) Potassium Level 4.6 mmol/L (3.5-5.1) Chloride Level 109 mmol/L (98-107) Carbon Dioxide Level 24 mmol/L (21-32) Anion Gap 13 (6-14) Blood Urea Nitrogen 42 mg/dL (8-26) Creatinine 2.1 mg/dL (0.7-1.3) Estimated GFR (Cockcroft-Gault) 31.1 Glucose Level 177 mg/dL (70-99) Calcium Level 8.9 mg/dL (8.5-10.1) Glucose (Fingerstick) 168 mg/dL (70-99) 212 mg/dL (70-99) 216 mg/dL (70-99) Test 05/11/19 23:28 05/12/19 02:40 05/12/19 05:36 05/12/19 07:50 Glucose (Fingerstick) 222 mg/dL (70-99) 194 mg/dL (70-99) 213 mg/dL (70-99) White Blood Count 8.4 x10^3/uL (4.0-11.0) Red Blood Count 2.84 x10^6/uL (4.30-5.70) Hemoglobin 9.0 g/dL (13.0-17.5) Hematocrit 27.1 % (39.0-53.0) Mean Corpuscular Volume 95 fL (79-100) Mean Corpuscular Hemoglobin 32 pg (25-35) Mean Corpuscular Hemoglobin Concent 33 g/dL (31-37) Red Cell Distribution Width 13.9 % (11.5-14.5) Platelet Count 186 x10^3/uL (140-400) Neutrophils (%) (Auto) 81 % (31-73) Lymphocytes (%) (Auto) 8 % (24-48) Monocytes (%) (Auto) 8 % (0-9) Eosinophils (%) (Auto) 2 % (0-3) Basophils (%) (Auto) 0 % (0-3) Neutrophils # (Auto) 6.9 x10^3/uL (1.8-7.7) Lymphocytes # (Auto) 0.7 x10^3/uL (1.0-4.8) Monocytes # (Auto) 0.7 x10^3/uL (0.0-1.1) Eosinophils # (Auto) 0.1 x10^3/uL (0.0-0.7) Basophils # (Auto) 0.0 x10^3/uL (0.0-0.2) Objective Assessment Perforated duodenal ulcer s/p repair, 05/08 ? cultures Fever - better Pancytopenia - improved Abx allergy: Sulfa and cipro w/ rash Acute respiratory failure, now on venti mask -s/p Bronchoscopy with BAL, 05/09. mucous plugging, culture pending GREGG -some better yesterday Nonobstructing calculus of the right kidney. Recent right shoulder joint replacement, 05/06 at [facility] Plan of Care Continue Zosyn and fluconazole f/u cultures f/u todays labs D/w at bedside D/w nursing YULIANA ONEAL MD May 12, 2019 09:28
[2019-05-12 11:00] VITALS: BP 147/70
[2019-05-12 11:22] LABS: CALCIUM 8.3 mg/dL (8.5-10.1); CREATININE 1.9 mg/dL (0.7-1.3); GFR 34.9; POTASSIUM 3.9 mmol/L (3.5-5.1)
--- NOTE | 2019-05-12 13:11 | PDOC ---
PROGRESS NOTES Chief Complaint Chief Complaint Assessment/Plan SEVERE SEPSIS Severe protein-caloric malnutrition GREGG - likely vasomotor nephropathy Perforated duodenal ulcer - Diagnostic laparoscopy with open laparotomy and closure of duodenal ulcer and Dawood patch 05-08 Small amount of ascites is seen within the abdomen and pelvis HTN, Fair control Acute hypoxemic respiratory failure Acute exacerbation of chronic obstructive pulmonary disease. Tobacco dependence. Recent right shoulder repair Movement disorder NOS - parkinsonian symptoms - will restart meds HLD - restart statin Plan gen surgery nephrology consult PULM CONSULT ID FOLLOWING IV ANTIBIOTICS, iv zosyn, FLUCONAZOLE PPN at 80cc /hr prn iv hydralazine 10 mg q 4 hrs prn bp support 34 MIN TIME History of Present Illness History of Present Illness Mr James is a 73-year-old male who recently underwent a right shoulder joint replacement on 05/06/2019 at [facility]. He was taking aspirin and Tylenol for pain relief. A couple of days later after eating a small meal, he developed acute onset of abdominal pain, distention, nausea, and vomiting. Imaging revealed free air within the upper abdomen and some ascites. He underwent a diagnostic laparoscopy with open laparotomy on May 08. He was found to have a perforated duodenal ulcer, status post closure with Dawood patch. He developed respiratory failure postop, requiring BiPAP. He underwent a bronchoscopy with BAL yesterday. Cultures pending. Seen by general surgery, ID, Pulm. Is on Zosyn and fluconazole. His tremors have gotten worse. Has not worked with therapy 2/2 ICU transfer yet today. He does not feel safe to go straight home, is requesting rehab. Recovering on O2 currently. mild abdominal pain. Vitals Vitals Vital Signs Date Time Temp Pulse Resp B/P (MAP) Pulse Ox O2 Delivery O2 Flow Rate FiO2 05/12/19 11:10 98 Nasal Cannula 2.0 05/12/19 11:00 97.6 97 18 147/70 (95) 97.6 Physical Exam Physical Exam GENERAL: Sitting on side of bed, alert, NAD HEENT: Pupils equally round. Oropharynx is clear. NG tube. NECK: Supple. LUNGS: Clear to auscultation. HEART: S1, S2 regular. ABDOMEN: Obese, soft, nontender with hypoactive bowel sounds. Surgical dressings are dry and THANG drain intact. EXTREMITIES: No gross edema or cyanosis. SCDs in place. Right shoulder incision well-approx stable, clean. SKIN: Warm to touch. No signs of rash. NEUROLOGIC: Alert and oriented x3. General: Cooperative, No acute distress Heart: Regular rate, Normal S1, Normal S2, No murmurs, Gallops Lungs: Clear, Other (deminished bs) Abdomen: Soft, Other (dressings dry, thang light brownish drainage) Extremities: No clubbing, No cyanosis, No edema, Normal pulses, No tenderness/swelling Skin: No significant lesion Labs LABS Laboratory Tests Test 05/11/19 16:56 05/11/19 20:58 05/11/19 23:28 05/12/19 02:40 Glucose (Fingerstick) 212 mg/dL (70-99) 216 mg/dL (70-99) 222 mg/dL (70-99) White Blood Count 8.4 x10^3/uL (4.0-11.0) Red Blood Count 2.84 x10^6/uL (4.30-5.70) Hemoglobin 9.0 g/dL (13.0-17.5) Hematocrit 27.1 % (39.0-53.0) Mean Corpuscular Volume 95 fL (79-100) Mean Corpuscular Hemoglobin 32 pg (25-35) Mean Corpuscular Hemoglobin Concent 33 g/dL (31-37) Red Cell Distribution Width 13.9 % (11.5-14.5) Platelet Count 186 x10^3/uL (140-400) Neutrophils (%) (Auto) 81 % (31-73) Lymphocytes (%) (Auto) 8 % (24-48) Monocytes (%) (Auto) 8 % (0-9) Eosinophils (%) (Auto) 2 % (0-3) Basophils (%) (Auto) 0 % (0-3) Neutrophils # (Auto) 6.9 x10^3/uL (1.8-7.7) Lymphocytes # (Auto) 0.7 x10^3/uL (1.0-4.8) Monocytes # (Auto) 0.7 x10^3/uL (0.0-1.1) Eosinophils # (Auto) 0.1 x10^3/uL (0.0-0.7) Basophils # (Auto) 0.0 x10^3/uL (0.0-0.2) Sodium Level 146 mmol/L (136-145) Potassium Level 3.9 mmol/L (3.5-5.1) Chloride Level 109 mmol/L (98-107) Carbon Dioxide Level 24 mmol/L (21-32) Anion Gap 13 (6-14) Blood Urea Nitrogen 34 mg/dL (8-26) Creatinine 1.9 mg/dL (0.7-1.3) Estimated GFR (Cockcroft-Gault) 34.9 Glucose Level 225 mg/dL (70-99) Calcium Level 8.3 mg/dL (8.5-10.1) Test 05/12/19 05:36 05/12/19 07:50 05/12/19 12:21 Glucose (Fingerstick) 194 mg/dL (70-99) 213 mg/dL (70-99) 245 mg/dL (70-99) Assessment and Plan Assessmemt and Plan Problems Medical Problems: (1) Perforated intestine, nontraumatic Status: Acute Comment Review of Relevant I have reviewed the following items adriano (where applicable) has been applied. Labs Laboratory Tests Test 05/10/19 18:03 05/10/19 23:49 05/11/19 06:20 05/11/19 09:53 Glucose (Fingerstick) 164 mg/dL (70-99) 198 mg/dL (70-99) 176 mg/dL (70-99) Sodium Level 146 mmol/L (136-145) Potassium Level 4.6 mmol/L (3.5-5.1) Chloride Level 109 mmol/L (98-107) Carbon Dioxide Level 24 mmol/L (21-32) Anion Gap 13 (6-14) Blood Urea Nitrogen 42 mg/dL (8-26) Creatinine 2.1 mg/dL (0.7-1.3) Estimated GFR (Cockcroft-Gault) 31.1 Glucose Level 177 mg/dL (70-99) Calcium Level 8.9 mg/dL (8.5-10.1) Test 05/11/19 11:59 05/11/19 16:56 05/11/19 20:58 05/11/19 23:28 Glucose (Fingerstick) 168 mg/dL (70-99) 212 mg/dL (70-99) 216 mg/dL (70-99) 222 mg/dL (70-99) Test 05/12/19 02:40 05/12/19 05:36 05/12/19 07:50 05/12/19 12:21 White Blood Count 8.4 x10^3/uL (4.0-11.0) Red Blood Count 2.84 x10^6/uL (4.30-5.70) Hemoglobin 9.0 g/dL (13.0-17.5) Hematocrit 27.1 % (39.0-53.0) Mean Corpuscular Volume 95 fL (79-100) Mean Corpuscular Hemoglobin 32 pg (25-35) Mean Corpuscular Hemoglobin Concent 33 g/dL (31-37) Red Cell Distribution Width 13.9 % (11.5-14.5) Platelet Count 186 x10^3/uL (140-400) Neutrophils (%) (Auto) 81 % (31-73) Lymphocytes (%) (Auto) 8 % (24-48) Monocytes (%) (Auto) 8 % (0-9) Eosinophils (%) (Auto) 2 % (0-3) Basophils (%) (Auto) 0 % (0-3) Neutrophils # (Auto) 6.9 x10^3/uL (1.8-7.7) Lymphocytes # (Auto) 0.7 x10^3/uL (1.0-4.8) Monocytes # (Auto) 0.7 x10^3/uL (0.0-1.1) Eosinophils # (Auto) 0.1 x10^3/uL (0.0-0.7) Basophils # (Auto) 0.0 x10^3/uL (0.0-0.2) Sodium Level 146 mmol/L (136-145) Potassium Level 3.9 mmol/L (3.5-5.1) Chloride Level 109 mmol/L (98-107) Carbon Dioxide Level 24 mmol/L (21-32) Anion Gap 13 (6-14) Blood Urea Nitrogen 34 mg/dL (8-26) Creatinine 1.9 mg/dL (0.7-1.3) Estimated GFR (Cockcroft-Gault) 34.9 Glucose Level 225 mg/dL (70-99) Calcium Level 8.3 mg/dL (8.5-10.1) Glucose (Fingerstick) 194 mg/dL (70-99) 213 mg/dL (70-99) 245 mg/dL (70-99) Laboratory Tests Test 05/11/19 16:56 05/11/19 20:58 05/11/19 23:28 05/12/19 02:40 Glucose (Fingerstick) 212 mg/dL (70-99) 216 mg/dL (70-99) 222 mg/dL (70-99) White Blood Count 8.4 x10^3/uL (4.0-11.0) Red Blood Count 2.84 x10^6/uL (4.30-5.70) Hemoglobin 9.0 g/dL (13.0-17.5) Hematocrit 27.1 % (39.0-53.0) Mean Corpuscular Volume 95 fL (79-100) Mean Corpuscular Hemoglobin 32 pg (25-35) Mean Corpuscular Hemoglobin Concent 33 g/dL (31-37) Red Cell Distribution Width 13.9 % (11.5-14.5) Platelet Count 186 x10^3/uL (140-400) Neutrophils (%) (Auto) 81 % (31-73) Lymphocytes (%) (Auto) 8 % (24-48) Monocytes (%) (Auto) 8 % (0-9) Eosinophils (%) (Auto) 2 % (0-3) Basophils (%) (Auto) 0 % (0-3) Neutrophils # (Auto) 6.9 x10^3/uL (1.8-7.7) Lymphocytes # (Auto) 0.7 x10^3/uL (1.0-4.8) Monocytes # (Auto) 0.7 x10^3/uL (0.0-1.1) Eosinophils # (Auto) 0.1 x10^3/uL (0.0-0.7) Basophils # (Auto) 0.0 x10^3/uL (0.0-0.2) Sodium Level 146 mmol/L (136-145) Potassium Level 3.9 mmol/L (3.5-5.1) Chloride Level 109 mmol/L (98-107) Carbon Dioxide Level 24 mmol/L (21-32) Anion Gap 13 (6-14) Blood Urea Nitrogen 34 mg/dL (8-26) Creatinine 1.9 mg/dL (0.7-1.3) Estimated GFR (Cockcroft-Gault) 34.9 Glucose Level 225 mg/dL (70-99) Calcium Level 8.3 mg/dL (8.5-10.1) Test 05/12/19 05:36 05/12/19 07:50 05/12/19 12:21 Glucose (Fingerstick) 194 mg/dL (70-99) 213 mg/dL (70-99) 245 mg/dL (70-99) Medications Current Medications Fentanyl Citrate (Fentanyl 2ml Vial) 50 mcg PRN Q15MIN PRN IV PAIN GREATER THAN 3/10 Last administered on 05/08/19at 19:27; Start 05/08/19 at 16:30; Stop 05/08/19 at 21:00; Status DC Sodium Chloride 1,000 ml @ 250 mls/hr Q4H IV Last administered on 05/08/19at 16:54; Start 05/08/19 at 16:19; Stop 05/08/19 at 20:18; Status DC Metoclopramide HCl (Reglan Vial) 10 mg 1X ONCE IVP Last administered on 05/08/19at 16:51; Start 05/08/19 at 17:00; Stop 05/08/19 at 17:01; Status DC Diphenhydramine HCl (Benadryl) 25 mg 1X ONCE IVP Last administered on 05/08/19at 16:51; Start 05/08/19 at 17:00; Stop 05/08/19 at 17:01; Status DC Iohexol (Omnipaque 350 Mg/ml) 90 ml 1X ONCE IV Last administered on 05/08/19at 17:45; Start 05/08/19 at 17:30; Stop 05/08/19 at 17:31; Status DC Info (CONTRAST GIVEN -- Rx MONITORING) 1 each PRN DAILY PRN MC SEE COMMENTS; Start 05/08/19 at 17:30; Stop 05/10/19 at 17:29; Status DC Hydromorphone HCl (Dilaudid) 1 mg 1X ONCE IV Last administered on 05/08/19at 18:23; Start 05/08/19 at 18:30; Stop 05/08/19 at 18:31; Status DC Piperacillin Sod/ Tazobactam Sod 3.375 gm/Sodium Chloride 50 ml @ 100 mls/hr 1X ONCE IV Last administered on 05/08/19at 19:06; Start 05/08/19 at 19:00; Stop 05/08/19 at 19:29; Status DC Sodium Chloride 1,000 ml @ 1,000 mls/hr 1X ONCE IV Last administered on 05/08/19at 19:06; Start 05/08/19 at 19:00; Stop 05/08/19 at 19:59; Status DC Ondansetron HCl (Zofran) 4 mg STK-MED ONCE .ROUTE ; Start 05/08/19 at 19:34; Stop 05/08/19 at 19:34; Status DC Propofol 20 ml @ As Directed STK-MED ONCE IV ; Start 05/08/19 at 19:34; Stop 05/08/19 at 19:34; Status DC Lidocaine HCl (Lidocaine Pf 2% Vial) 5 ml STK-MED ONCE .ROUTE ; Start 05/08/19 at 19:34; Stop 05/08/19 at 19:34; Status DC Dexamethasone Sodium Phosphate (Decadron) 4 mg STK-MED ONCE .ROUTE ; Start 05/08/19 at 19:34; Stop 05/08/19 at 19:34; Status DC Fentanyl Citrate (Fentanyl 2ml Vial) 100 mcg STK-MED ONCE .ROUTE ; Start 05/08/19 at 19:34; Stop 05/08/19 at 19:34; Status DC Succinylcholine Chloride (Anectine) 200 mg STK-MED ONCE .ROUTE ; Start 05/08/19 at 19:34; Stop 05/08/19 at 19:34; Status DC Rocuronium [place] (Zemuron) 50 mg STK-MED ONCE .ROUTE ; Start 05/08/19 at 19:34; Stop 05/08/19 at 19:34; Status DC Ondansetron HCl (Zofran) 4 mg PRN Q6HRS PRN IV NAUSEA/VOMITING; Start 05/08/19 at 19:45; Stop 05/08/19 at 23:59; Status DC Fentanyl Citrate (Fentanyl 2ml Vial) 25 mcg PRN Q5MIN PRN IV MILD PAIN 1-3; Start 05/08/19 at 19:45; Stop 05/08/19 at 23:59; Status DC Fentanyl Citrate (Fentanyl 2ml Vial) 50 mcg PRN Q5MIN PRN IV MODERATE TO SEVERE PAIN; Start 05/08/19 at 19:45; Stop 05/08/19 at 23:59; Status DC Ringer's Solution 1,000 ml @ 30 mls/hr Q24H IV Last administered on 05/08/19at 23:06; Start 05/08/19 at 20:00; Stop 05/09/19 at 01:00; Status DC Prochlorperazine Edisylate (Compazine) 5 mg PACU PRN PRN IV NAUSEA, MRX1; Start 05/08/19 at 19:45; Stop 05/08/19 at 23:59; Status DC Insulin Human Lispro (HumaLOG VIAL for OP,RR ONLY) 0-10 units PRN Q1HR PRN SQ PER PROTOCOL; Start 05/08/19 at 19:45; Stop 05/08/19 at 23:59; Status DC Bupivacaine HCl/ Epinephrine Bitart (Sensorcaine-Epi 0.25%-1:[id number] Mpf) 30 ml 1X ONCE INJ Last administered on 05/08/19at 20:32; Start 05/08/19 at 20:00; Stop 05/08/19 at 20:01; Status DC Ketamine HCl (Ketamine) 50 mg STK-MED ONCE .ROUTE ; Start 05/08/19 at 20:12; Stop 05/08/19 at 20:12; Status DC Phenylephrine HCl (PHENYLEPHRINE in 0.9% NACL PF) 1 mg STK-MED ONCE IV ; Start 05/08/19 at 20:33; Stop 05/08/19 at 20:33; Status DC Ephedrine Sulfate (ePHEDrine PF IN SALINE SYRINGE) 50 mg STK-MED ONCE IV ; Start 05/08/19 at 20:36; Stop 05/08/19 at 20:36; Status DC Albumin Human 500 ml @ As Directed STK-MED ONCE IV ; Start 05/08/19 at 20:55; Stop 05/08/19 at 20:55; Status DC Glycopyrrolate (Robinul) 1 mg STK-MED ONCE .ROUTE ; Start 05/08/19 at 21:27; Stop 05/08/19 at 21:27; Status DC Neostigmine Methylsulfate (Neostigmine Methylsulfate) 5 mg STK-MED ONCE .ROUTE ; Start 05/08/19 at 21:27; Stop 05/08/19 at 21:27; Status DC Bupivacaine HCl (Sensorcaine Mpf 0.5%) 30 ml STK-MED ONCE .ROUTE ; Start 05/08/19 at 21:39; Stop 05/08/19 at 21:39; Status DC Epinephrine HCl (Adrenalin) 1 mg STK-MED ONCE .ROUTE ; Start 05/08/19 at 21:39; Stop 05/08/19 at 21:39; Status DC Sevoflurane (Ultane) 60 ml STK-MED ONCE IH ; Start 05/08/19 at 21:44; Stop 05/08/19 at 21:44; Status DC Sodium Chloride 1,000 ml @ 125 mls/hr Q8H IV Last administered on 05/08/19at 23:45; Start 05/08/19 at 22:00; Stop 05/09/19 at 15:21; Status DC Ondansetron HCl (Zofran) 4 mg PRN Q6HRS PRN IVP NAUSEA/VOMITING 1ST CHOICE; Start 05/08/19 at 22:00 Fluconazole/ Sodium Chloride 100 ml @ 100 mls/hr Q24H IV Last administered on 05/11/19at 21:01; Start 05/08/19 at 22:00 Hydromorphone HCl (Dilaudid) 1 mg PRN Q4HRS PRN IV SEVERE PAIN 7-10 Last administered on 05/10/19at 22:06; Start 05/08/19 at 22:00 Piperacillin Sod/ Tazobactam Sod 3.375 gm/Sodium Chloride 50 ml @ 100 mls/hr Q6HRS IV Last administered on 05/12/19at 11:43; Start 05/09/19 at 00:00 Pantoprazole Sodium (PROTONIX VIAL for IV PUSH) 40 mg DAILY IVP Last administered on 05/11/19at 09:43; Start 05/09/19 at 09:00; Stop 05/12/19 at 08:30; Status DC Insulin Human Regular 150 unit/ Sodium Chloride 151.5 ml @ 0 mls/hr CONT PRN IV SEE I/O RECORD; Start 05/08/19 at 23:00; Status UNV Insulin Human Regular 150 unit/ Sodium Chloride 151.5 ml @ 0 mls/hr CONT PRN IV SEE I/O RECORD Last administered on 05/08/19at 23:03; Start 05/08/19 at 23:00 Dextrose (Dextrose 50%-Water Syringe) 12.5 gm PRN Q15MIN PRN IV LOW BLOOD SUGAR; Start 05/08/19 at 23:00 Dextrose 250 ml PRN Q15MIN PRN IV LOW BLOOD SUGAR; Start 05/08/19 at 23:00 Albumin Human 500 ml @ 250 mls/hr 1X ONCE IV Last administered on 05/09/19at 00:10; Start 05/09/19 at 00:30; Stop 05/09/19 at 02:29; Status DC Norepinephrine Bitartrate 250 ml @ 20.156 mls/ hr CONT PRN IV SEE I/O RECORD; Start 05/09/19 at 00:00 Dextrose/Sodium Chloride 1,000 ml @ 150 mls/hr Q6H40M IV Last administered on 05/09/19at 12:28; Start 05/09/19 at 08:45; Stop 05/09/19 at 18:30; Status DC Sodium Chloride 500 ml @ 500 mls/hr PRN Q2HR PRN IV SEE COMMENTS; Start 05/09/19 at 11:15 Sodium Chloride 1,000 ml @ 2,190 mls/hr Q28M IV ; Start 05/09/19 at 12:39; Stop 05/09/19 at 13:39; Status DC Sodium Chloride 500 ml @ 1,000 mls/hr PRN Q30MIN PRN IV SEE COMMENTS; Start 05/09/19 at 12:45; Stop 05/09/19 at 12:50; Status DC Norepinephrine Bitartrate 250 ml @ 19.688 mls/ hr CONT PRN IV SEE I/O RECORD; Start 05/09/19 at 12:45; Status Cancel Dobutamine HCl/ Dextrose 250 ml @ 15.75 mls/ hr CONT PRN IV SEE I/O RECORD; Start 05/09/19 at 12:45 Insulin Human Lispro (HumaLOG) 0-7 UNITS TIDWMEALS SQ ; Start 05/09/19 at 17:00; Stop 05/09/19 at 19:36; Status DC Dextrose (Dextrose 50%-Water Syringe) 12.5 gm PRN Q15MIN PRN IV SEE COMMENTS; Start 05/09/19 at 15:30; Status UNV Sodium Chloride 1,000 ml @ 60 mls/hr [id number] IV Last administered on 05/10/19at 16:47; Start 05/09/19 at 15:30; Stop 05/12/19 at 10:57; Status DC Insulin Human Lispro (HumaLOG) 0-7 UNITS Q6HRS SQ Last administered on 05/12/19at 12:26; Start 05/10/19 at 00:00 Albuterol/ Ipratropium (Duoneb) 3 ml RTQID NEB Last administered on 05/12/19at 11:10; Start 05/10/19 at 08:00 Budesonide (Pulmicort) 0.5 mg RTBID NEB Last administered on 05/12/19at 07:23; Start 05/10/19 at 08:00 Heparin Sodium (Porcine) (Heparin Sodium) 5,000 unit BID SQ Last administered on 05/12/19at 08:49; Start 05/11/19 at 10:00 Phenol (Chloraseptic) 1 spray PRN Q2HR PRN PO SORE THROAT Last administered on 05/11/19at 13:12; Start 05/11/19 at 11:30 Multi-Ingredient Ointment (Analgesic [place]) 1 jazlyn PRN QID PRN TP MUSCLE PAIN; Start 05/11/19 at 11:30 Amino Acids/ Glycerin/ Electrolytes 1,000 ml @ 80 mls/hr [id number] IV Last administered on 05/12/19at 04:58; Start 05/11/19 at 12:00 Hydralazine HCl (Apresoline Inj) 10 mg PRN Q4HRS PRN IVP ELEVATED BP, SEE COMMENTS; Start 05/11/19 at 11:45 Pantoprazole Sodium (Protonix) 40 mg DAILYAC PO Last administered on 05/12/19at 08:40; Start 05/12/19 at 09:00 Active Scripts Active Reported Venlafaxine Hcl 75 Mg Tablet Unknown Dose PO DAILY Simvastatin 10 Mg Tablet 10 Mg PO DAILY Metformin Hcl 1,000 Mg Tablet 1,000 Mg PO BIDWMEALS Meloxicam 15 Mg Tablet Unknown Dose PO DAILY Lisinopril 10 Mg Tablet Unknown Dose PO DAILY Humalog (Insulin Lispro) 100 Unit/1 Ml Cartridge 100 Unit SQ Sinemet 25-100 Mg Tablet (Carbidopa/Levodopa) 1 Each Tablet 1 Tab PO TID Vitals/I & O Vital Sign - Last 24 Hours 05/11/19 05/11/19 05/11/19 05/11/19 13:00 14:00 14:55 16:57 Temp 98.4 98.4 Pulse 120 107 103 Resp 27 23 16 B/P (MAP) 151/85 (107) 148/78 (101) 150/70 (96) Pulse Ox 92 98 94 O2 Delivery Nasal Cannula Nasal Cannula Nasal Cannula Nasal Cannula O2 Flow Rate 3.0 3.0 3.0 9.0 05/11/19 05/11/19 05/11/19 05/11/19 19:20 19:50 19:56 23:24 Temp 97.7 97.6 97.7 97.6 Pulse 102 100 Resp 18 18 B/P (MAP) 127/63 (84) 133/68 (89) Pulse Ox 94 93 94 O2 Delivery Nasal Cannula Nasal Cannula Nasal Cannula Nasal Cannula O2 Flow Rate 3.0 3.0 2.0 3.0 05/12/19 05/12/19 05/12/19 05/12/19 03:20 07:00 07:23 07:45 Temp 98.1 99.1 98.1 99.1 Pulse 88 94 Resp 18 18 B/P (MAP) 151/68 (95) 188/90 (122) Pulse Ox 91 93 94 O2 Delivery Nasal Cannula Nasal Cannula Nasal Cannula Nasal Cannula O2 Flow Rate 3.0 2.5 2.5 3.0 05/12/19 05/12/19 11:00 11:10 Temp 97.6 97.6 Pulse 97 Resp 18 B/P (MAP) 147/70 (95) Pulse Ox 95 98 O2 Delivery Nasal Cannula Nasal Cannula O2 Flow Rate 3.0 2.0 Intake and Output 05/11/19 05/11/19 05/12/19 15:00 23:00 07:00 Intake Total 240 ml Output Total 550 ml 400 ml 1240 ml Balance -550 ml -400 ml -1000 ml SHREYA HERRERA MD May 12, 2019 13:11
[2019-05-12] MEDS ORDERED: VENLAFAXINE 75 MG TABLET. PO SCH (13:30)
[2019-05-12] MEDS ORDERED: PRIMIDONE 50 MG TABLET PO SCH (13:45)
[2019-05-12] MEDS ORDERED: CARBIDOPA/LEVODOPA 25/100MG TABLET PO SCH (14:00)
[2019-05-12] MEDS ORDERED: VENL75CA6 PO (14:19)
--- NOTE | 2019-05-12 14:33 | PDOC ---
SUBJECTIVE ROS Stable, no complaints OBJECTIVE Vital Signs Vital Signs Date Time Temp Pulse Resp B/P (MAP) Pulse Ox O2 Delivery O2 Flow Rate FiO2 05/12/19 11:10 98 Nasal Cannula 2.0 05/12/19 11:00 97.6 97 18 147/70 (95) 97.6 I & 0 Intake and Output 05/12/19 07:00 Intake Total 240 ml Output Total 2190 ml Balance -1950 ml Intake Oral 240 ml Output Urine Total 2100 ml Drainage Total 90 ml PHYSICAL EXAM Physical Exam General:NAD HEENT: OM moist, Neck supple Lungs: Clear to auscultation Heart: Regular rate, Abdomen: Soft , Extremities: No edema, Skin: No significant lesion, No rash Neuro: grossly normal - alcantara + DIAGNOSIS/ASSESSMENT Assessment & Plan GREGG - ATN 2/2 to Perf Dudod ulcer/Hypotension /IV Contrast with CTA Non Oliguric , NSAID use for shoulder surgery recently (Meloxicam per home med list ) and ASA Stable renal function - Cr peaked at 3.1 , improving slowly Obtain Records/Labs from PCP - jad RN Supportive care, I/O, monitor Perforated duodenal ulcer with free air peritonitis- s/p diagnostic laparoscopy with open laparotomy and closure of duodenal ulcer and Dawood patch HTN- on antihypertensives Has been restarted back on Lisinopril DM - Per Primary Nephrolithiasis- gives Hx of passing stone few years back CT scan shows Kidney stone, Non obstructing Panyctopenia- wbc Normal, Plat and Hgb low Per primary Hypoxia- resolved COMMENT/RELEVANT DATA Meds Current Medications Medications (Trade) Dose Ordered Sig/[place] Start Time Stop Time Status Last Admin Dose Admin Albumin Human 500 ml @ 250 mls/hr 1X ONCE 05/09/19 00:30 05/09/19 02:29 DC 05/09/19 00:10 250 MLS/HR Albuterol/ Ipratropium (Duoneb) 3 ml RTQID 05/10/19 08:00 05/12/19 11:10 3 ML Amino Acids/ Glycerin/ Electrolytes 1,000 ml @ 80 mls/hr [id number] 05/11/19 12:00 05/12/19 04:58 80 MLS/HR Budesonide (Pulmicort) 0.5 mg RTBID 05/10/19 08:00 05/12/19 07:23 0.5 MG Bupivacaine HCl (Sensorcaine Mpf 0.5%) 30 ml STK-MED ONCE 05/08/19 21:39 05/08/19 21:39 DC Bupivacaine HCl/ Epinephrine Bitart (Sensorcaine-Epi 0.25%-1:[id number] Mpf) 30 ml 1X ONCE 05/08/19 20:00 05/08/19 20:01 DC 05/08/19 20:32 26 ML Carbidopa/Levodopa (Sinemet 25/100) 1 tab TID 05/12/19 14:00 05/12/19 13:40 DC Dexamethasone Sodium Phosphate (Decadron) 4 mg STK-MED ONCE 05/08/19 19:34 05/08/19 19:34 DC Dextrose (Dextrose 50%-Water Syringe) 12.5 gm PRN Q15MIN PRN 05/09/19 15:30 UNV Dextrose/Sodium Chloride 1,000 ml @ 150 mls/hr [id number] 05/09/19 08:45 05/09/19 18:30 DC 05/09/19 12:28 150 MLS/HR Diphenhydramine HCl (Benadryl) 25 mg 1X ONCE 05/08/19 17:00 05/08/19 17:01 DC 05/08/19 16:51 25 MG Dobutamine HCl/ Dextrose 250 ml @ 15.75 mls/ hr CONT PRN 05/09/19 12:45 05/12/19 13:06 DC Ephedrine Sulfate (ePHEDrine PF IN SALINE SYRINGE) 50 mg STK-MED ONCE 05/08/19 20:36 05/08/19 20:36 DC Epinephrine HCl (Adrenalin) 1 mg STK-MED ONCE 05/08/19 21:39 05/08/19 21:39 DC Fentanyl Citrate (Fentanyl 2ml Vial) 50 mcg PRN Q5MIN PRN 05/08/19 19:45 05/08/19 23:59 DC Fluconazole/ Sodium Chloride 100 ml @ 100 mls/hr Q24H 05/08/19 22:00 05/11/19 21:01 100 MLS/HR Glycopyrrolate (Robinul) 1 mg STK-MED ONCE 05/08/19 21:27 05/08/19 21:27 DC Heparin Sodium (Porcine) (Heparin Sodium) 5,000 unit BID 05/11/19 10:00 05/12/19 08:49 5,000 UNIT Hydralazine HCl (Apresoline Inj) 10 mg PRN Q4HRS PRN 05/11/19 11:45 Hydromorphone HCl (Dilaudid) 1 mg PRN Q4HRS PRN 05/08/19 22:00 05/10/19 22:06 1 MG Info (CONTRAST GIVEN -- Rx MONITORING) 1 each PRN DAILY PRN 05/08/19 17:30 05/10/19 17:29 DC Insulin Glargine (Lantus Syringe) 15 unit QHS 05/12/19 21:00 Insulin Human Lispro (HumaLOG VIAL for OP,RR ONLY) 0-10 units PRN Q1HR PRN 05/08/19 19:45 05/08/19 23:59 DC Insulin Human Lispro (HumaLOG) 0-7 UNITS Q6HRS 05/10/19 00:00 05/12/19 12:26 4 UNITS Insulin Human Regular 150 unit/ Sodium Chloride 151.5 ml @ 0 mls/hr CONT PRN 05/08/19 23:00 05/12/19 13:06 DC 05/08/19 23:03 5 MLS/HR Iohexol (Omnipaque 350 Mg/ml) 90 ml 1X ONCE 05/08/19 17:30 05/08/19 17:31 DC 05/08/19 17:45 90 ML Ketamine HCl (Ketamine) 50 mg STK-MED ONCE 05/08/19 20:12 05/08/19 20:12 DC Lactobacillus Rhamnosus (Culturelle) 1 cap BID 05/12/19 21:00 Lidocaine HCl (Lidocaine Pf 2% Vial) 5 ml STK-MED ONCE 05/08/19 19:34 05/08/19 19:34 DC Lisinopril (Prinivil) 10 mg DAILY 05/13/19 09:00 Metoclopramide HCl (Reglan Vial) 10 mg 1X ONCE 05/08/19 17:00 05/08/19 17:01 DC 05/08/19 16:51 10 MG Multi-Ingredient Ointment (Analgesic [place]) 1 jazlyn PRN QID PRN 05/11/19 11:30 Neostigmine Methylsulfate (Neostigmine Methylsulfate) 5 mg STK-MED ONCE 05/08/19 21:27 05/08/19 21:27 DC Norepinephrine Bitartrate 250 ml @ 19.688 mls/ hr CONT PRN 05/09/19 12:45 Cancel Ondansetron HCl (Zofran) 4 mg PRN Q6HRS PRN 05/08/19 22:00 Pantoprazole Sodium (PROTONIX VIAL for IV PUSH) 40 mg DAILY 05/09/19 09:00 05/12/19 08:30 DC 05/11/19 09:43 40 MG Pantoprazole Sodium (Protonix) 40 mg DAILYAC 05/12/19 09:00 05/12/19 08:40 40 MG Phenol (Chloraseptic) 1 spray PRN Q2HR PRN 05/11/19 11:30 05/11/19 13:12 1 SPRAY Phenylephrine HCl (PHENYLEPHRINE in 0.9% NACL PF) 1 mg STK-MED ONCE 05/08/19 20:33 05/08/19 20:33 DC Piperacillin Sod/ Tazobactam Sod 3.375 gm/Sodium Chloride 50 ml @ 100 mls/hr Q6HRS 05/09/19 00:00 05/12/19 11:43 100 MLS/HR Primidone (Mysoline) 50 mg DAILY 05/12/19 13:45 Prochlorperazine Edisylate (Compazine) 5 mg PACU PRN PRN 05/08/19 19:45 05/08/19 23:59 DC Propofol 20 ml @ As Directed STK-MED ONCE 05/08/19 19:34 05/08/19 19:34 DC Ringer's Solution 1,000 ml @ 30 mls/hr Q24H 05/08/19 20:00 05/09/19 01:00 DC 05/08/19 23:06 30 MLS/HR Rocuronium [place] (Zemuron) 50 mg STK-MED ONCE 05/08/19 19:34 05/08/19 19:34 DC Sevoflurane (Ultane) 60 ml STK-MED ONCE 05/08/19 21:44 05/08/19 21:44 DC Simvastatin (Zocor) 10 mg QHS 05/12/19 21:00 Sodium Chloride 1,000 ml @ 60 mls/hr [id number] 05/09/19 15:30 05/12/19 10:57 DC 05/10/19 16:47 60 MLS/HR Succinylcholine Chloride (Anectine) 200 mg STK-MED ONCE 05/08/19 19:34 05/08/19 19:34 DC Venlafaxine HCl (Effexor Xr) 75 mg DAILY 05/13/19 09:00 Venlafaxine HCl (Effexor) 75 mg DAILY 05/12/19 13:30 05/12/19 14:20 DC 05/12/19 13:34 75 MG Lab Laboratory Tests Test 05/11/19 16:56 05/11/19 20:58 05/11/19 23:28 05/12/19 02:40 Glucose (Fingerstick) 212 mg/dL (70-99) 216 mg/dL (70-99) 222 mg/dL (70-99) White Blood Count 8.4 x10^3/uL (4.0-11.0) Red Blood Count 2.84 x10^6/uL (4.30-5.70) Hemoglobin 9.0 g/dL (13.0-17.5) Hematocrit 27.1 % (39.0-53.0) Mean Corpuscular Volume 95 fL (79-100) Mean Corpuscular Hemoglobin 32 pg (25-35) Mean Corpuscular Hemoglobin Concent 33 g/dL (31-37) Red Cell Distribution Width 13.9 % (11.5-14.5) Platelet Count 186 x10^3/uL (140-400) Neutrophils (%) (Auto) 81 % (31-73) Lymphocytes (%) (Auto) 8 % (24-48) Monocytes (%) (Auto) 8 % (0-9) Eosinophils (%) (Auto) 2 % (0-3) Basophils (%) (Auto) 0 % (0-3) Neutrophils # (Auto) 6.9 x10^3/uL (1.8-7.7) Lymphocytes # (Auto) 0.7 x10^3/uL (1.0-4.8) Monocytes # (Auto) 0.7 x10^3/uL (0.0-1.1) Eosinophils # (Auto) 0.1 x10^3/uL (0.0-0.7) Basophils # (Auto) 0.0 x10^3/uL (0.0-0.2) Sodium Level 146 mmol/L (136-145) Potassium Level 3.9 mmol/L (3.5-5.1) Chloride Level 109 mmol/L (98-107) Carbon Dioxide Level 24 mmol/L (21-32) Anion Gap 13 (6-14) Blood Urea Nitrogen 34 mg/dL (8-26) Creatinine 1.9 mg/dL (0.7-1.3) Estimated GFR (Cockcroft-Gault) 34.9 Glucose Level 225 mg/dL (70-99) Calcium Level 8.3 mg/dL (8.5-10.1) Test 05/12/19 05:36 05/12/19 07:50 05/12/19 12:21 Glucose (Fingerstick) 194 mg/dL (70-99) 213 mg/dL (70-99) 245 mg/dL (70-99) Results All relevant outside records, renal labs, imaging studies, telemetry/EKG's were reviewed. ANA BERRIOS MD May 12, 2019 14:33
[2019-05-12] MEDS: PRIMIDONE 50 MG TABLET PO SCH ×2 (14:34→20:54)
--- NOTE | 2019-05-12 14:56 | NUR ---
SW following for discharge planning. Chart reviewed, discussed with RN. Pt is from home with . PT/OT recommending acute rehab. SW met with pt and pt's at bedside to discuss discharge planning. Pt and pt's agreeable to acute rehab and would like referral sent to [facility], they do not want to [place] state lines. DORIAN phoned and faxed referral to [facility] (ph:[phone], fax: [phone]). SW will continue to follow. RN notified.
[2019-05-12 15:00] VITALS: BP 156/77
[2019-05-12] MEDS ORDERED: GABAPENTIN 300 MG CAPSULE. PO PRN (17:45)
[2019-05-12 19:00] VITALS: BP 147/79
[2019-05-12] MEDS: LACTOBACILLUS RHAMNOSUS GG 1 CAPSULE. PO SCH (20:53)
[2019-05-12] MEDS: SIMVASTATIN 10 MG TABLET PO SCH (20:53)
[2019-05-12] MEDS: FLUCONAZOLE 200MG/100ML PREMIX 100 ML IV SCH (21:06)
[2019-05-12] MEDS: INSULIN GLARGINE SYRINGE. SQ SCH (21:07)
[2019-05-12 23:00] VITALS: BP 154/79
[2019-05-13] MEDS: PIPERACILLIN/TAZOBACTAM 3.375 GM in IV NORMAL SALINE 50ML 50 ML IV SCH ×5 (00:16→23:30)
[2019-05-13] MEDS: INSULIN LISPRO 300 UNITS/3 ML VIAL. SQ SCH ×2 (00:20→05:50)
[2019-05-13 03:14] VITALS: BP 156/78
[2019-05-13 04:08] LABS: CALCIUM 8.9 mg/dL (8.5-10.1); CREATININE 1.5 mg/dL (0.7-1.3); GFR 45.9; POTASSIUM 3.6 mmol/L (3.5-5.1)
[2019-05-13 07:00] VITALS: BP 154/83
[2019-05-13] MEDS: PANTOPRAZOLE 40 MG TABLET.DR. PO SCH (08:01)
[2019-05-13] MEDS ORDERED: traMADol 50 MG TABLET PO PRN (08:30)
[2019-05-13] MEDS ORDERED: cloNIDine HCL 0.1 MG TABLET PO PRN (08:30)
[2019-05-13] MEDS ORDERED: ONDANSETRON PF 4 MG/2 ML VIAL. IVP PRN (08:30)
[2019-05-13] MEDS ORDERED: ACETAMINOPHEN 500 MG TABLET PO PRN (08:30)
[2019-05-13] MEDS: LISINOPRIL 10 MG TABLET PO SCH (09:00)
[2019-05-13] MEDS ORDERED: VENLAFAXINE XR 37.5 MG CAP.ER.24H. PO SCH (09:00)
[2019-05-13] MEDS: IPRATRPIUM/ALBUTEROL 0.5/2.5MG 3 ML NEBU. NEB SCH ×4 (09:17→19:29)
[2019-05-13] MEDS: BUDESONIDE 0.5 MG/2 ML NEBU. NEB SCH ×2 (09:17→19:29)
--- NOTE | 2019-05-13 09:38 | PDOC ---
PROGRESS NOTES Chief Complaint Chief Complaint s/p perf viscus repair 05/09 SEVERE SEPSIS Severe protein-caloric malnutrition GREGG - likely vasomotor nephropathy Perforated duodenal ulcer - Diagnostic laparoscopy with open laparotomy and closure of duodenal ulcer and Dawood patch 05-09 Small amount of ascites is seen within the abdomen and pelvis HTN, Fair control Acute hypoxemic respiratory failure Acute exacerbation of chronic obstructive pulmonary disease. Tobacco dependence. Recent right shoulder repair Movement disorder NOS - parkinsonian symptoms - will restart meds HLD - restart statin DM 2 insulin req REcent RT shoulder sx (total arthroplasty at [facility]) MEt encepahlopathy sec to medical course History of Present Illness History of Present Illness on liq diet and eating fair only On procalamine t.o icu after repair of perf DU - s.p pressor? INsulin regimen at home is 35 qhs and 15 breakfast and lunch, and 20 units dinner fast acting BUt not resumed bec barely eating Metformin I will cont to hold as creat 1,5 (better than admission, has stabilized) Still some intermittent confusion accdg to from all his course PLAN: SSI shift to ACHS and high dose DIet per GS agreeable to SNU and SW is following IV abx still per ID WIll dc once shifted to PO abx, PO intake has picked up and cleared by GS FULL CODE RT shoulder repair c.o [facility] - ff up with their ortho Vitals Vitals Vital Signs Date Time Temp Pulse Resp B/P (MAP) Pulse Ox O2 Delivery O2 Flow Rate FiO2 05/13/19 09:19 93 Room Air 05/13/19 07:00 98.6 81 18 154/83 (106) 98.6 05/12/19 21:04 2.0 Physical Exam Physical Exam GENERAL: Sitting on side of bed, alert, NAD HEENT: Pupils equally round. Oropharynx is clear. NG tube. NECK: Supple. LUNGS: Clear to auscultation. HEART: S1, S2 regular. ABDOMEN: Obese, soft, nontender with hypoactive bowel sounds. Surgical dressings are dry and THANG drain intact. EXTREMITIES: No gross edema or cyanosis. SCDs in place. Right shoulder incision well-approx stable, clean. SKIN: Warm to touch. No signs of rash. NEUROLOGIC: Alert and oriented x3. General: Cooperative, No acute distress Heart: Regular rate, Normal S1, Normal S2, No murmurs, Gallops Lungs: Clear, Other (deminished bs) Abdomen: Soft, Other (dressings dry, thang light brownish drainage) Extremities: No clubbing, No cyanosis, No edema, Normal pulses, No tenderness/swelling Skin: No significant lesion Labs LABS Laboratory Tests Test 05/12/19 12:21 05/12/19 17:06 05/13/19 00:12 05/13/19 03:30 Glucose (Fingerstick) 245 mg/dL (70-99) 201 mg/dL (70-99) 249 mg/dL (70-99) Sodium Level 142 mmol/L (136-145) Potassium Level 3.6 mmol/L (3.5-5.1) Chloride Level 106 mmol/L (98-107) Carbon Dioxide Level 24 mmol/L (21-32) Anion Gap 12 (6-14) Blood Urea Nitrogen 29 mg/dL (8-26) Creatinine 1.5 mg/dL (0.7-1.3) Estimated GFR (Cockcroft-Gault) 45.9 Glucose Level 189 mg/dL (70-99) Calcium Level 8.9 mg/dL (8.5-10.1) Test 05/13/19 05:43 Glucose (Fingerstick) 183 mg/dL (70-99) Review of Systems Review of Systems confused, not reliable ROS< denies post op pain Assessment and Plan Assessmemt and Plan Problems Medical Problems: (1) Perforated intestine, nontraumatic Status: Acute Comment Review of Relevant I have reviewed the following items adriano (where applicable) has been applied. Labs Laboratory Tests Test 05/11/19 09:53 05/11/19 11:59 05/11/19 16:56 05/11/19 20:58 Sodium Level 146 mmol/L (136-145) Potassium Level 4.6 mmol/L (3.5-5.1) Chloride Level 109 mmol/L (98-107) Carbon Dioxide Level 24 mmol/L (21-32) Anion Gap 13 (6-14) Blood Urea Nitrogen 42 mg/dL (8-26) Creatinine 2.1 mg/dL (0.7-1.3) Estimated GFR (Cockcroft-Gault) 31.1 Glucose Level 177 mg/dL (70-99) Calcium Level 8.9 mg/dL (8.5-10.1) Glucose (Fingerstick) 168 mg/dL (70-99) 212 mg/dL (70-99) 216 mg/dL (70-99) Test 05/11/19 23:28 05/12/19 02:40 05/12/19 05:36 05/12/19 07:50 Glucose (Fingerstick) 222 mg/dL (70-99) 194 mg/dL (70-99) 213 mg/dL (70-99) White Blood Count 8.4 x10^3/uL (4.0-11.0) Red Blood Count 2.84 x10^6/uL (4.30-5.70) Hemoglobin 9.0 g/dL (13.0-17.5) Hematocrit 27.1 % (39.0-53.0) Mean Corpuscular Volume 95 fL (79-100) Mean Corpuscular Hemoglobin 32 pg (25-35) Mean Corpuscular Hemoglobin Concent 33 g/dL (31-37) Red Cell Distribution Width 13.9 % (11.5-14.5) Platelet Count 186 x10^3/uL (140-400) Neutrophils (%) (Auto) 81 % (31-73) Lymphocytes (%) (Auto) 8 % (24-48) Monocytes (%) (Auto) 8 % (0-9) Eosinophils (%) (Auto) 2 % (0-3) Basophils (%) (Auto) 0 % (0-3) Neutrophils # (Auto) 6.9 x10^3/uL (1.8-7.7) Lymphocytes # (Auto) 0.7 x10^3/uL (1.0-4.8) Monocytes # (Auto) 0.7 x10^3/uL (0.0-1.1) Eosinophils # (Auto) 0.1 x10^3/uL (0.0-0.7) Basophils # (Auto) 0.0 x10^3/uL (0.0-0.2) Sodium Level 146 mmol/L (136-145) Potassium Level 3.9 mmol/L (3.5-5.1) Chloride Level 109 mmol/L (98-107) Carbon Dioxide Level 24 mmol/L (21-32) Anion Gap 13 (6-14) Blood Urea Nitrogen 34 mg/dL (8-26) Creatinine 1.9 mg/dL (0.7-1.3) Estimated GFR (Cockcroft-Gault) 34.9 Glucose Level 225 mg/dL (70-99) Calcium Level 8.3 mg/dL (8.5-10.1) Test 05/12/19 12:21 05/12/19 17:06 05/13/19 00:12 05/13/19 03:30 Glucose (Fingerstick) 245 mg/dL (70-99) 201 mg/dL (70-99) 249 mg/dL (70-99) Sodium Level 142 mmol/L (136-145) Potassium Level 3.6 mmol/L (3.5-5.1) Chloride Level 106 mmol/L (98-107) Carbon Dioxide Level 24 mmol/L (21-32) Anion Gap 12 (6-14) Blood Urea Nitrogen 29 mg/dL (8-26) Creatinine 1.5 mg/dL (0.7-1.3) Estimated GFR (Cockcroft-Gault) 45.9 Glucose Level 189 mg/dL (70-99) Calcium Level 8.9 mg/dL (8.5-10.1) Test 05/13/19 05:43 Glucose (Fingerstick) 183 mg/dL (70-99) Laboratory Tests Test 05/12/19 12:21 05/12/19 17:06 05/13/19 00:12 05/13/19 03:30 Glucose (Fingerstick) 245 mg/dL (70-99) 201 mg/dL (70-99) 249 mg/dL (70-99) Sodium Level 142 mmol/L (136-145) Potassium Level 3.6 mmol/L (3.5-5.1) Chloride Level 106 mmol/L (98-107) Carbon Dioxide Level 24 mmol/L (21-32) Anion Gap 12 (6-14) Blood Urea Nitrogen 29 mg/dL (8-26) Creatinine 1.5 mg/dL (0.7-1.3) Estimated GFR (Cockcroft-Gault) 45.9 Glucose Level 189 mg/dL (70-99) Calcium Level 8.9 mg/dL (8.5-10.1) Test 05/13/19 05:43 Glucose (Fingerstick) 183 mg/dL (70-99) Medications Current Medications Fentanyl Citrate (Fentanyl 2ml Vial) 50 mcg PRN Q15MIN PRN IV PAIN GREATER THAN 3/10 Last administered on 05/08/19at 19:27; Start 05/08/19 at 16:30; Stop 05/08/19 at 21:00; Status DC Sodium Chloride 1,000 ml @ 250 mls/hr Q4H IV Last administered on 05/08/19at 16:54; Start 05/08/19 at 16:19; Stop 05/08/19 at 20:18; Status DC Metoclopramide HCl (Reglan Vial) 10 mg 1X ONCE IVP Last administered on 05/08/19at 16:51; Start 05/08/19 at 17:00; Stop 05/08/19 at 17:01; Status DC Diphenhydramine HCl (Benadryl) 25 mg 1X ONCE IVP Last administered on 05/08/19at 16:51; Start 05/08/19 at 17:00; Stop 05/08/19 at 17:01; Status DC Iohexol (Omnipaque 350 Mg/ml) 90 ml 1X ONCE IV Last administered on 05/08/19at 17:45; Start 05/08/19 at 17:30; Stop 05/08/19 at 17:31; Status DC Info (CONTRAST GIVEN -- Rx MONITORING) 1 each PRN DAILY PRN MC SEE COMMENTS; Start 05/08/19 at 17:30; Stop 05/10/19 at 17:29; Status DC Hydromorphone HCl (Dilaudid) 1 mg 1X ONCE IV Last administered on 05/08/19at 18:23; Start 05/08/19 at 18:30; Stop 05/08/19 at 18:31; Status DC Piperacillin Sod/ Tazobactam Sod 3.375 gm/Sodium Chloride 50 ml @ 100 mls/hr 1X ONCE IV Last administered on 05/08/19at 19:06; Start 05/08/19 at 19:00; Stop 05/08/19 at 19:29; Status DC Sodium Chloride 1,000 ml @ 1,000 mls/hr 1X ONCE IV Last administered on 05/08/19at 19:06; Start 05/08/19 at 19:00; Stop 05/08/19 at 19:59; Status DC Ondansetron HCl (Zofran) 4 mg STK-MED ONCE .ROUTE ; Start 05/08/19 at 19:34; Stop 05/08/19 at 19:34; Status DC Propofol 20 ml @ As Directed STK-MED ONCE IV ; Start 05/08/19 at 19:34; Stop 05/08/19 at 19:34; Status DC Lidocaine HCl (Lidocaine Pf 2% Vial) 5 ml STK-MED ONCE .ROUTE ; Start 05/08/19 at 19:34; Stop 05/08/19 at 19:34; Status DC Dexamethasone Sodium Phosphate (Decadron) 4 mg STK-MED ONCE .ROUTE ; Start 05/08/19 at 19:34; Stop 05/08/19 at 19:34; Status DC Fentanyl Citrate (Fentanyl 2ml Vial) 100 mcg STK-MED ONCE .ROUTE ; Start 05/08/19 at 19:34; Stop 05/08/19 at 19:34; Status DC Succinylcholine Chloride (Anectine) 200 mg STK-MED ONCE .ROUTE ; Start 05/08/19 at 19:34; Stop 05/08/19 at 19:34; Status DC Rocuronium Beulah (Zemuron) 50 mg STK-MED ONCE .ROUTE ; Start 05/08/19 at 19:34; Stop 05/08/19 at 19:34; Status DC Ondansetron HCl (Zofran) 4 mg PRN Q6HRS PRN IV NAUSEA/VOMITING; Start 05/08/19 at 19:45; Stop 05/08/19 at 23:59; Status DC Fentanyl Citrate (Fentanyl 2ml Vial) 25 mcg PRN Q5MIN PRN IV MILD PAIN 1-3; Start 05/08/19 at 19:45; Stop 05/08/19 at 23:59; Status DC Fentanyl Citrate (Fentanyl 2ml Vial) 50 mcg PRN Q5MIN PRN IV MODERATE TO SEVERE PAIN; Start 05/08/19 at 19:45; Stop 05/08/19 at 23:59; Status DC Ringer's Solution 1,000 ml @ 30 mls/hr Q24H IV Last administered on 05/08/19at 23:06; Start 05/08/19 at 20:00; Stop 05/09/19 at 01:00; Status DC Prochlorperazine Edisylate (Compazine) 5 mg PACU PRN PRN IV NAUSEA, MRX1; Start 05/08/19 at 19:45; Stop 05/08/19 at 23:59; Status DC Insulin Human Lispro (HumaLOG VIAL for OP,RR ONLY) 0-10 units PRN Q1HR PRN SQ PER PROTOCOL; Start 05/08/19 at 19:45; Stop 05/08/19 at 23:59; Status DC Bupivacaine HCl/ Epinephrine Bitart (Sensorcaine-Epi 0.25%-1:[id number] Mpf) 30 ml 1X ONCE INJ Last administered on 05/08/19at 20:32; Start 05/08/19 at 20:00; Stop 05/08/19 at 20:01; Status DC Ketamine HCl (Ketamine) 50 mg STK-MED ONCE .ROUTE ; Start 05/08/19 at 20:12; Stop 05/08/19 at 20:12; Status DC Phenylephrine HCl (PHENYLEPHRINE in 0.9% NACL PF) 1 mg STK-MED ONCE IV ; Start 05/08/19 at 20:33; Stop 05/08/19 at 20:33; Status DC Ephedrine Sulfate (ePHEDrine PF IN SALINE SYRINGE) 50 mg STK-MED ONCE IV ; Start 05/08/19 at 20:36; Stop 05/08/19 at 20:36; Status DC Albumin Human 500 ml @ As Directed STK-MED ONCE IV ; Start 05/08/19 at 20:55; Stop 05/08/19 at 20:55; Status DC Glycopyrrolate (Robinul) 1 mg STK-MED ONCE .ROUTE ; Start 05/08/19 at 21:27; Stop 05/08/19 at 21:27; Status DC Neostigmine Methylsulfate (Neostigmine Methylsulfate) 5 mg STK-MED ONCE .ROUTE ; Start 05/08/19 at 21:27; Stop 05/08/19 at 21:27; Status DC Bupivacaine HCl (Sensorcaine Mpf 0.5%) 30 ml STK-MED ONCE .ROUTE ; Start 05/08/19 at 21:39; Stop 05/08/19 at 21:39; Status DC Epinephrine HCl (Adrenalin) 1 mg STK-MED ONCE .ROUTE ; Start 05/08/19 at 21:39; Stop 05/08/19 at 21:39; Status DC Sevoflurane (Ultane) 60 ml STK-MED ONCE IH ; Start 05/08/19 at 21:44; Stop 05/08/19 at 21:44; Status DC Sodium Chloride 1,000 ml @ 125 mls/hr Q8H IV Last administered on 05/08/19at 23:45; Start 05/08/19 at 22:00; Stop 05/09/19 at 15:21; Status DC Ondansetron HCl (Zofran) 4 mg PRN Q6HRS PRN IVP NAUSEA/VOMITING 1ST CHOICE; Start 05/08/19 at 22:00 Fluconazole/ Sodium Chloride 100 ml @ 100 mls/hr Q24H IV Last administered on 05/12/19at 21:06; Start 05/08/19 at 22:00 Hydromorphone HCl (Dilaudid) 1 mg PRN Q4HRS PRN IV SEVERE PAIN 7-10 Last administered on 05/10/19at 22:06; Start 05/08/19 at 22:00 Piperacillin Sod/ Tazobactam Sod 3.375 gm/Sodium Chloride 50 ml @ 100 mls/hr Q6HRS IV Last administered on 05/13/19at 05:42; Start 05/09/19 at 00:00 Pantoprazole Sodium (PROTONIX VIAL for IV PUSH) 40 mg DAILY IVP Last administered on 05/11/19at 09:43; Start 05/09/19 at 09:00; Stop 05/12/19 at 08:30; Status DC Insulin Human Regular 150 unit/ Sodium Chloride 151.5 ml @ 0 mls/hr CONT PRN IV SEE I/O RECORD; Start 05/08/19 at 23:00; Status UNV Insulin Human Regular 150 unit/ Sodium Chloride 151.5 ml @ 0 mls/hr CONT PRN IV SEE I/O RECORD Last administered on 05/08/19at 23:03; Start 05/08/19 at 23:00; Stop 05/12/19 at 13:06; Status DC Dextrose (Dextrose 50%-Water Syringe) 12.5 gm PRN Q15MIN PRN IV LOW BLOOD SUGAR; Start 05/08/19 at 23:00 Dextrose 250 ml PRN Q15MIN PRN IV LOW BLOOD SUGAR; Start 05/08/19 at 23:00 Albumin Human 500 ml @ 250 mls/hr 1X ONCE IV Last administered on 05/09/19at 00:10; Start 05/09/19 at 00:30; Stop 05/09/19 at 02:29; Status DC Norepinephrine Bitartrate 250 ml @ 20.156 mls/ hr CONT PRN IV SEE I/O RECORD; Start 05/09/19 at 00:00; Stop 05/12/19 at 13:06; Status DC Dextrose/Sodium Chloride 1,000 ml @ 150 mls/hr Q6H40M IV Last administered on 05/09/19at 12:28; Start 05/09/19 at 08:45; Stop 05/09/19 at 18:30; Status DC Sodium Chloride 500 ml @ 500 mls/hr PRN Q2HR PRN IV SEE COMMENTS; Start 05/09/19 at 11:15 Sodium Chloride 1,000 ml @ 2,190 mls/hr Q28M IV ; Start 05/09/19 at 12:39; Stop 05/09/19 at 13:39; Status DC Sodium Chloride 500 ml @ 1,000 mls/hr PRN Q30MIN PRN IV SEE COMMENTS; Start 05/09/19 at 12:45; Stop 05/09/19 at 12:50; Status DC Norepinephrine Bitartrate 250 ml @ 19.688 mls/ hr CONT PRN IV SEE I/O RECORD; Start 05/09/19 at 12:45; Status Cancel Dobutamine HCl/ Dextrose 250 ml @ 15.75 mls/ hr CONT PRN IV SEE I/O RECORD; Start 05/09/19 at 12:45; Stop 05/12/19 at 13:06; Status DC Insulin Human Lispro (HumaLOG) 0-7 UNITS TIDWMEALS SQ ; Start 05/09/19 at 17:00; Stop 05/09/19 at 19:36; Status DC Dextrose (Dextrose 50%-Water Syringe) 12.5 gm PRN Q15MIN PRN IV SEE COMMENTS; Start 05/09/19 at 15:30; Status UNV Sodium Chloride 1,000 ml @ 60 mls/hr [id number] IV Last administered on 05/10/19at 16:47; Start 05/09/19 at 15:30; Stop 05/12/19 at 10:57; Status DC Insulin Human Lispro (HumaLOG) 0-7 UNITS Q6HRS SQ Last administered on 05/13/19at 05:50; Start 05/10/19 at 00:00; Stop 05/13/19 at 08:27; Status DC Albuterol/ Ipratropium (Duoneb) 3 ml RTQID NEB Last administered on 05/13/19at 09:17; Start 05/10/19 at 08:00 Budesonide (Pulmicort) 0.5 mg RTBID NEB Last administered on 05/13/19at 09:17; Start 05/10/19 at 08:00 Heparin Sodium (Porcine) (Heparin Sodium) 5,000 unit BID SQ Last administered on 05/12/19 21:02; Start 05/11/19 at 10:00 Phenol (Chloraseptic) 1 spray PRN Q2HR PRN PO SORE THROAT Last administered on 05/11/19at 13:12; Start 05/11/19 at 11:30 Multi-Ingredient Ointment (Analgesic Hickory) 1 jazlyn PRN QID PRN TP MUSCLE PAIN; Start 05/11/19 at 11:30 Amino Acids/ Glycerin/ Electrolytes 1,000 ml @ 80 mls/hr [id number] IV Last administered on 05/12/19at 20:53; Start 05/11/19 at 12:00 Hydralazine HCl (Apresoline Inj) 10 mg PRN Q4HRS PRN IVP ELEVATED BP, SEE COMMENTS; Start 05/11/19 at 11:45 Pantoprazole Sodium (Protonix) 40 mg DAILYAC PO Last administered on 05/13/19at 08:01; Start 05/12/19 at 09:00 Carbidopa/Levodopa (Sinemet 25/100) 1 tab TID PO ; Start 05/12/19 at 14:00; Stop 05/12/19 at 13:40; Status DC Lisinopril (Prinivil) 10 mg DAILY PO ; Start 05/13/19 at 09:00 Simvastatin (Zocor) 10 mg QHS PO Last administered on 05/12/19at 20:53; Start 05/12/19 at 21:00 Venlafaxine HCl (Effexor) 75 mg DAILY PO Last administered on 05/12/19at 13:34; Start 05/12/19 at 13:30; Stop 05/12/19 at 14:20; Status DC Primidone (Mysoline) 50 mg DAILY PO ; Start 05/12/19 at 13:45; Stop 05/12/19 at 14:27; Status DC Insulin Glargine (Lantus Syringe) 15 unit QHS SQ Last administered on 05/12/19at 21:07; Start 05/12/19 at 21:00 Venlafaxine HCl (Effexor Xr) 75 mg DAILY PO ; Start 05/13/19 at 09:00 Lactobacillus Rhamnosus (Culturelle) 1 cap BID PO Last administered on 05/12/19at 20:53; Start 05/12/19 at 21:00 Primidone (Mysoline) 25 mg BID PO Last administered on 05/12/19at 20:54; Start 05/12/19 at 14:30 Gabapentin (Neurontin) 300 mg PRN QHS PRN PO NEUROPATHIC PAIN Last administered on 05/12/19at 20:53; Start 05/12/19 at 17:45 Acetaminophen (Tylenol) 500 mg PRN Q6HRS PRN PO MILD PAIN / TEMP; Start 05/13/19 at 08:30 Tramadol HCl (Ultram) 50 mg PRN Q6HRS PRN PO PAIN MOD TO SEV; Start 05/13/19 at 08:30 Clonidine HCl (Catapres) 0.1 mg PRN Q1HR PRN PO HYPERTENSION; Start 05/13/19 at 08:30 Ondansetron HCl (Zofran) 4 mg PRN Q6HRS PRN IVP NAUSEA/VOMITING; Start 05/13/19 at 08:30; Status UNV Venlafaxine HCl (Effexor Xr) 37.5 mg BID PO ; Start 05/13/19 at 09:00; Stop 05/13/19 at 08:33; Status DC Active Scripts Active Reported Venlafaxine Hcl Er (Venlafaxine Hcl) 75 Mg Cap.er.24h 75 Mg PO DAILY Simvastatin 10 Mg Tablet 10 Mg PO DAILY Metformin Hcl 1,000 Mg Tablet 1,000 Mg PO BIDWMEALS Meloxicam 15 Mg Tablet Unknown Dose PO DAILY Lisinopril 10 Mg Tablet Unknown Dose PO DAILY Humalog (Insulin Lispro) 100 Unit/1 Ml Cartridge 100 Unit SQ Sinemet 25-100 Mg Tablet (Carbidopa/Levodopa) 1 Each Tablet 1 Tab PO TID Vitals/I & O Vital Sign - Last 24 Hours 05/12/19 05/12/19 05/12/19 05/12/19 11:00 11:10 15:00 15:38 Temp 97.6 97.8 97.6 97.8 Pulse 97 90 Resp 18 18 B/P (MAP) 147/70 (95) 156/77 (103) Pulse Ox 95 98 94 96 O2 Delivery Nasal Cannula Nasal Cannula Nasal Cannula Nasal Cannula O2 Flow Rate 3.0 2.0 3.0 2.0 05/12/19 05/12/19 05/12/19 05/12/19 19:00 20:00 21:04 23:00 Temp 99.1 98.0 99.1 98.0 Pulse 99 106 Resp 20 20 B/P (MAP) 147/79 (101) 154/79 (104) Pulse Ox 92 95 92 O2 Delivery Nasal Cannula Nasal Cannula O2 Flow Rate 2.0 2.0 05/13/19 05/13/19 05/13/19 03:14 07:00 09:19 Temp 98.5 98.6 98.5 98.6 Pulse 95 81 Resp 20 18 B/P (MAP) 156/78 (104) 154/83 (106) Pulse Ox 93 92 93 O2 Delivery Room Air Room Air Room Air Intake and Output 05/12/19 05/12/19 05/13/19 15:00 23:00 07:00 Intake Total 280 ml Output Total 200 ml 700 ml Balance -200 ml -420 ml HARITHA LARA MD May 13, 2019 09:38
[2019-05-13] MEDS: LACTOBACILLUS RHAMNOSUS GG 1 CAPSULE. PO SCH ×2 (09:42→21:13)
--- NOTE | 2019-05-13 09:42 | PDOC ---
FABI MASSEY [employer] 05/13/19 0942: SURGICAL PROGRESS NOTE Subjective tolerating diet present pain minimal Vital Signs Vital Signs Date Time Temp Pulse Resp B/P (MAP) Pulse Ox O2 Delivery O2 Flow Rate FiO2 05/13/19 09:19 93 Room Air 05/13/19 07:00 98.6 81 18 154/83 (106) 98.6 05/12/19 21:04 2.0 I&O Intake and Output 05/13/19 07:00 Intake Total 280 ml Output Total 900 ml Balance -620 ml Intake Oral 280 ml Output Urine Total 900 ml # Voids 1 General: Alert, Cooperative Abdomen: Soft, Other (drain succus drainage) Labs Laboratory Tests Test 05/11/19 09:53 05/11/19 11:59 05/11/19 16:56 05/11/19 20:58 Sodium Level 146 mmol/L (136-145) Potassium Level 4.6 mmol/L (3.5-5.1) Chloride Level 109 mmol/L (98-107) Carbon Dioxide Level 24 mmol/L (21-32) Anion Gap 13 (6-14) Blood Urea Nitrogen 42 mg/dL (8-26) Creatinine 2.1 mg/dL (0.7-1.3) Estimated GFR (Cockcroft-Gault) 31.1 Glucose Level 177 mg/dL (70-99) Calcium Level 8.9 mg/dL (8.5-10.1) Glucose (Fingerstick) 168 mg/dL (70-99) 212 mg/dL (70-99) 216 mg/dL (70-99) Test 05/11/19 23:28 05/12/19 02:40 05/12/19 05:36 05/12/19 07:50 Glucose (Fingerstick) 222 mg/dL (70-99) 194 mg/dL (70-99) 213 mg/dL (70-99) White Blood Count 8.4 x10^3/uL (4.0-11.0) Red Blood Count 2.84 x10^6/uL (4.30-5.70) Hemoglobin 9.0 g/dL (13.0-17.5) Hematocrit 27.1 % (39.0-53.0) Mean Corpuscular Volume 95 fL (79-100) Mean Corpuscular Hemoglobin 32 pg (25-35) Mean Corpuscular Hemoglobin Concent 33 g/dL (31-37) Red Cell Distribution Width 13.9 % (11.5-14.5) Platelet Count 186 x10^3/uL (140-400) Neutrophils (%) (Auto) 81 % (31-73) Lymphocytes (%) (Auto) 8 % (24-48) Monocytes (%) (Auto) 8 % (0-9) Eosinophils (%) (Auto) 2 % (0-3) Basophils (%) (Auto) 0 % (0-3) Neutrophils # (Auto) 6.9 x10^3/uL (1.8-7.7) Lymphocytes # (Auto) 0.7 x10^3/uL (1.0-4.8) Monocytes # (Auto) 0.7 x10^3/uL (0.0-1.1) Eosinophils # (Auto) 0.1 x10^3/uL (0.0-0.7) Basophils # (Auto) 0.0 x10^3/uL (0.0-0.2) Sodium Level 146 mmol/L (136-145) Potassium Level 3.9 mmol/L (3.5-5.1) Chloride Level 109 mmol/L (98-107) Carbon Dioxide Level 24 mmol/L (21-32) Anion Gap 13 (6-14) Blood Urea Nitrogen 34 mg/dL (8-26) Creatinine 1.9 mg/dL (0.7-1.3) Estimated GFR (Cockcroft-Gault) 34.9 Glucose Level 225 mg/dL (70-99) Calcium Level 8.3 mg/dL (8.5-10.1) Test 05/12/19 12:21 05/12/19 17:06 05/13/19 00:12 05/13/19 03:30 Glucose (Fingerstick) 245 mg/dL (70-99) 201 mg/dL (70-99) 249 mg/dL (70-99) Sodium Level 142 mmol/L (136-145) Potassium Level 3.6 mmol/L (3.5-5.1) Chloride Level 106 mmol/L (98-107) Carbon Dioxide Level 24 mmol/L (21-32) Anion Gap 12 (6-14) Blood Urea Nitrogen 29 mg/dL (8-26) Creatinine 1.5 mg/dL (0.7-1.3) Estimated GFR (Cockcroft-Gault) 45.9 Glucose Level 189 mg/dL (70-99) Calcium Level 8.9 mg/dL (8.5-10.1) Test 05/13/19 05:43 Glucose (Fingerstick) 183 mg/dL (70-99) Laboratory Tests Test 05/12/19 12:21 05/12/19 17:06 05/13/19 00:12 05/13/19 03:30 Glucose (Fingerstick) 245 mg/dL (70-99) 201 mg/dL (70-99) 249 mg/dL (70-99) Sodium Level 142 mmol/L (136-145) Potassium Level 3.6 mmol/L (3.5-5.1) Chloride Level 106 mmol/L (98-107) Carbon Dioxide Level 24 mmol/L (21-32) Anion Gap 12 (6-14) Blood Urea Nitrogen 29 mg/dL (8-26) Creatinine 1.5 mg/dL (0.7-1.3) Estimated GFR (Cockcroft-Gault) 45.9 Glucose Level 189 mg/dL (70-99) Calcium Level 8.9 mg/dL (8.5-10.1) Test 05/13/19 05:43 Glucose (Fingerstick) 183 mg/dL (70-99) Problem List Problems Medical Problems: (1) Perforated intestine, nontraumatic Status: Acute Assessment/Plan s/p repair perf ulcer full liquids continue drain JAZMINE URIBE MD 05/13/19 1049: SURGICAL PROGRESS NOTE Assessment/Plan Overall patient improving tolerating clear liquid diet advancing diet to full liquids denies any nausea vomiting minimal pain. Agree with Maria assessment and plan. Looking towards for DC to rehabilitation once tolerating regular diet FABI MASSEY APRN May 13, 2019 09:42 JAZMINE URIBE MD May 13, 2019 10:49
[2019-05-13] MEDS: VENLAFAXINE XR 37.5 MG CAP.ER.24H. PO SCH (09:43)
[2019-05-13] MEDS: PRIMIDONE 50 MG TABLET PO SCH ×2 (09:43→21:13)
[2019-05-13] MEDS: HEPARIN for SUB-Q USE 5,000 UNIT/ML VIAL. SQ SCH ×2 (09:47→21:13)
--- NOTE | 2019-05-13 09:53 | PDOC ---
Infectious Disease Note Subjective Subjective Doing ok Tolerating po Some better No F/C/S/N/V/D/SOA Vital Sign Vital Signs Vital Signs Date Time Temp Pulse Resp B/P (MAP) Pulse Ox O2 Delivery O2 Flow Rate FiO2 05/13/19 09:19 93 Room Air 05/13/19 09:00 81 154/83 05/13/19 07:00 98.6 18 98.6 05/12/19 21:04 2.0 Physical Exam PHYSICAL EXAM GENERAL: Sitting on side of bed, alert, NAD in chair HEENT: Pupils equally round. Oropharynx is clear. NECK: Supple. LUNGS: Clear to auscultation. HEART: S1, S2 regular. ABDOMEN: Obese, soft, nontender with hypoactive bowel sounds. Surgical dressings are dry and MACKENZIE drain intact. EXTREMITIES: No gross edema or cyanosis. SCDs in place. Right shoulder incision well-approx stable, clean. SKIN: Warm to touch. No signs of rash. NEUROLOGIC: Alert and oriented x3. Labs Lab Laboratory Tests Test 05/12/19 12:21 05/12/19 17:06 05/13/19 00:12 05/13/19 03:30 Glucose (Fingerstick) 245 mg/dL (70-99) 201 mg/dL (70-99) 249 mg/dL (70-99) Sodium Level 142 mmol/L (136-145) Potassium Level 3.6 mmol/L (3.5-5.1) Chloride Level 106 mmol/L (98-107) Carbon Dioxide Level 24 mmol/L (21-32) Anion Gap 12 (6-14) Blood Urea Nitrogen 29 mg/dL (8-26) Creatinine 1.5 mg/dL (0.7-1.3) Estimated GFR (Cockcroft-Gault) 45.9 Glucose Level 189 mg/dL (70-99) Calcium Level 8.9 mg/dL (8.5-10.1) Test 05/13/19 05:43 Glucose (Fingerstick) 183 mg/dL (70-99) Objective Assessment Perforated duodenal ulcer s/p repair, 05/08 no apparent cultures Fever - better Pancytopenia - improved Abx allergy: Sulfa and cipro w/ rash Acute respiratory failure, now on venti mask -s/p Bronchoscopy with BAL, 05/09. mucous plugging, culture pending GREGG -some alvina Nonobstructing calculus of the right kidney. Recent right shoulder joint replacement, 05/06 at [facility] Plan Plan of Care Continue Zosyn and fluconazole f/u cultures/labs D/w at bedside D/w nursing YULIANA ONEAL MD May 13, 2019 09:53
--- NOTE | 2019-05-13 10:11 | PDOC ---
PULMONARY PROGRESS NOTES Subjective PT ON NC O2 SOA WITH LITTLE EXERTION Vitals Vital Signs Date Time Temp Pulse Resp B/P (MAP) Pulse Ox O2 Delivery O2 Flow Rate FiO2 05/13/19 09:19 93 Room Air 05/13/19 09:00 81 154/83 05/13/19 07:00 98.6 18 98.6 05/12/19 21:04 2.0 ROS: No Chest Pain General: Alert, Oriented X4 HEENT: Other (nc at perrl nose throat clear neck no lad no thyromegaly) Lungs: Clear, Other (deminished bs) Cardiovascular: S1, S2 Abdomen: Soft, Non-tender, Other (no mass) Neuro Exam: Alert Extremities: No Edema Skin: Warm Labs Laboratory Tests Test 05/11/19 11:59 05/11/19 16:56 05/11/19 20:58 05/11/19 23:28 Glucose (Fingerstick) 168 mg/dL (70-99) 212 mg/dL (70-99) 216 mg/dL (70-99) 222 mg/dL (70-99) Test 05/12/19 02:40 05/12/19 05:36 05/12/19 07:50 05/12/19 12:21 White Blood Count 8.4 x10^3/uL (4.0-11.0) Red Blood Count 2.84 x10^6/uL (4.30-5.70) Hemoglobin 9.0 g/dL (13.0-17.5) Hematocrit 27.1 % (39.0-53.0) Mean Corpuscular Volume 95 fL (79-100) Mean Corpuscular Hemoglobin 32 pg (25-35) Mean Corpuscular Hemoglobin Concent 33 g/dL (31-37) Red Cell Distribution Width 13.9 % (11.5-14.5) Platelet Count 186 x10^3/uL (140-400) Neutrophils (%) (Auto) 81 % (31-73) Lymphocytes (%) (Auto) 8 % (24-48) Monocytes (%) (Auto) 8 % (0-9) Eosinophils (%) (Auto) 2 % (0-3) Basophils (%) (Auto) 0 % (0-3) Neutrophils # (Auto) 6.9 x10^3/uL (1.8-7.7) Lymphocytes # (Auto) 0.7 x10^3/uL (1.0-4.8) Monocytes # (Auto) 0.7 x10^3/uL (0.0-1.1) Eosinophils # (Auto) 0.1 x10^3/uL (0.0-0.7) Basophils # (Auto) 0.0 x10^3/uL (0.0-0.2) Sodium Level 146 mmol/L (136-145) Potassium Level 3.9 mmol/L (3.5-5.1) Chloride Level 109 mmol/L (98-107) Carbon Dioxide Level 24 mmol/L (21-32) Anion Gap 13 (6-14) Blood Urea Nitrogen 34 mg/dL (8-26) Creatinine 1.9 mg/dL (0.7-1.3) Estimated GFR (Cockcroft-Gault) 34.9 Glucose Level 225 mg/dL (70-99) Calcium Level 8.3 mg/dL (8.5-10.1) Glucose (Fingerstick) 194 mg/dL (70-99) 213 mg/dL (70-99) 245 mg/dL (70-99) Test 05/12/19 17:06 05/13/19 00:12 05/13/19 03:30 05/13/19 05:43 Glucose (Fingerstick) 201 mg/dL (70-99) 249 mg/dL (70-99) 183 mg/dL (70-99) Sodium Level 142 mmol/L (136-145) Potassium Level 3.6 mmol/L (3.5-5.1) Chloride Level 106 mmol/L (98-107) Carbon Dioxide Level 24 mmol/L (21-32) Anion Gap 12 (6-14) Blood Urea Nitrogen 29 mg/dL (8-26) Creatinine 1.5 mg/dL (0.7-1.3) Estimated GFR (Cockcroft-Gault) 45.9 Glucose Level 189 mg/dL (70-99) Calcium Level 8.9 mg/dL (8.5-10.1) Laboratory Tests Test 05/12/19 12:21 05/12/19 17:06 05/13/19 00:12 05/13/19 03:30 Glucose (Fingerstick) 245 mg/dL (70-99) 201 mg/dL (70-99) 249 mg/dL (70-99) Sodium Level 142 mmol/L (136-145) Potassium Level 3.6 mmol/L (3.5-5.1) Chloride Level 106 mmol/L (98-107) Carbon Dioxide Level 24 mmol/L (21-32) Anion Gap 12 (6-14) Blood Urea Nitrogen 29 mg/dL (8-26) Creatinine 1.5 mg/dL (0.7-1.3) Estimated GFR (Cockcroft-Gault) 45.9 Glucose Level 189 mg/dL (70-99) Calcium Level 8.9 mg/dL (8.5-10.1) Test 05/13/19 05:43 Glucose (Fingerstick) 183 mg/dL (70-99) Medications Active Scripts Medications Dose Route/Sig Max Daily Dose Days Date Category Venlafaxine Hcl 75 Mg Tablet Unknown Dose PO DAILY 02/18/19 Reported Simvastatin 10 Mg Tablet 10 Mg PO DAILY 02/18/19 Reported Metformin Hcl 1,000 Mg Tablet 1,000 Mg PO BIDWMEALS 02/18/19 Reported Meloxicam 15 Mg Tablet Unknown Dose PO DAILY 02/18/19 Reported Lisinopril 10 Mg Tablet Unknown Dose PO DAILY 02/18/19 Reported Humalog (Insulin Lispro) 100 Unit/1 Ml Cartridge 100 Unit SQ 02/18/19 Reported Sinemet 25-100 Mg Tablet (Carbidopa/Levodopa) 1 Each Tablet 1 Tab PO TID 02/18/19 Reported Impression . IMPRESSION: 1. Expected acute hypoxemic respiratory failure status post repair of a perforated duodenal ulcer. 2. Status post laparoscopy with open laparotomy for closure of a duodenal ulcer with Dawood patch. 3. Acute exacerbation of chronic obstructive pulmonary disease. 4. Tobacco dependence. 5. Hypertension. 6. Recent right shoulder repair. 7. Hypotension. 8. Fever. 9. Possible sepsis present upon admission. Plan . IS, 02 AGREE WITH CURRENT RX RESP STATUS IS COMPENSATED NEEDS REHAB D/C SMOKING CONTINUE SUPPORT TG RAZO MD May 13, 2019 10:11
[2019-05-13 11:00] VITALS: BP_SYST 136; BP_SYST 149; BP_DIAS 65; BP_DIAS 68
--- NOTE | 2019-05-13 11:02 | NUR ---
SW following for discharge planning. Discussed with RN, pt is accepted at [facility]. Plan is to discharge to [facility] acute rehab tomorrow (05/14/19). SW will continue to follow.
--- NOTE | 2019-05-13 11:08 | PDOC ---
SUBJECTIVE ROS Stable, no complaints , sleeping more today per OBJECTIVE Vital Signs Vital Signs Date Time Temp Pulse Resp B/P (MAP) Pulse Ox O2 Delivery O2 Flow Rate FiO2 05/13/19 09:19 93 Room Air 05/13/19 09:00 81 154/83 05/13/19 07:00 98.6 18 98.6 05/12/19 21:04 2.0 I & 0 Intake and Output 05/13/19 07:00 Intake Total 280 ml Output Total 900 ml Balance -620 ml Intake Oral 280 ml Output Urine Total 900 ml # Voids 1 PHYSICAL EXAM Physical Exam General:NAD HEENT: OM moist, Neck supple Lungs: Clear to auscultation Heart: Regular rate, Abdomen: Soft , Extremities: No edema, Skin: No significant lesion, No rash Neuro: grossly normal - No alcantara DIAGNOSIS/ASSESSMENT Assessment & Plan GREGG - ATN 2/2 to Perf Dudod ulcer/Hypotension /IV Contrast with CTA Non Oliguric , NSAID use for shoulder surgery recently (Meloxicam per home med list ) and ASA Stable renal function - Cr peaked at 3.1 , improving slowly -->1.5 today Supportive care, I/O, monitor Perforated duodenal ulcer with free air peritonitis- s/p diagnostic laparoscopy with open laparotomy and closure of duodenal ulcer and Dawood patch HTN- on antihypertensives Has been restarted back on Lisinopril DM - Per Primary Nephrolithiasis- gives Hx of passing stone few years back CT scan shows Kidney stone, Non obstructing Panyctopenia- wbc Normal, Plat and Hgb low Per primary Anemia- hGB decreasing Defer to Primary Hypoxia- resolved Dw at bedside COMMENT/RELEVANT DATA Meds Current Medications Medications (Trade) Dose Ordered Sig/Ventura Start Time Stop Time Status Last Admin Dose Admin Acetaminophen (Tylenol) 500 mg PRN Q6HRS PRN 05/13/19 08:30 Albumin Human 500 ml @ 250 mls/hr 1X ONCE 05/09/19 00:30 05/09/19 02:29 DC 05/09/19 00:10 250 MLS/HR Albuterol/ Ipratropium (Duoneb) 3 ml RTQID 05/10/19 08:00 05/13/19 09:17 3 ML Amino Acids/ Glycerin/ Electrolytes 1,000 ml @ 80 mls/hr [id number] 05/11/19 12:00 05/12/19 20:53 80 MLS/HR Budesonide (Pulmicort) 0.5 mg RTBID 05/10/19 08:00 05/13/19 09:17 0.5 MG Bupivacaine HCl (Sensorcaine Mpf 0.5%) 30 ml STK-MED ONCE 05/08/19 21:39 05/08/19 21:39 DC Bupivacaine HCl/ Epinephrine Bitart (Sensorcaine-Epi 0.25%-1:[id number] Mpf) 30 ml 1X ONCE 05/08/19 20:00 05/08/19 20:01 DC 05/08/19 20:32 26 ML Carbidopa/Levodopa (Sinemet 25/100) 1 tab TID 05/12/19 14:00 05/12/19 13:40 DC Clonidine HCl (Catapres) 0.1 mg PRN Q1HR PRN 05/13/19 08:30 Dexamethasone Sodium Phosphate (Decadron) 4 mg STK-MED ONCE 05/08/19 19:34 05/08/19 19:34 DC Dextrose (Dextrose 50%-Water Syringe) 12.5 gm PRN Q15MIN PRN 05/09/19 15:30 UNV Dextrose/Sodium Chloride 1,000 ml @ 150 mls/hr Q6H40M 05/09/19 08:45 05/09/19 18:30 DC 05/09/19 12:28 150 MLS/HR Diphenhydramine HCl (Benadryl) 25 mg 1X ONCE 05/08/19 17:00 05/08/19 17:01 DC 05/08/19 16:51 25 MG Dobutamine HCl/ Dextrose 250 ml @ 15.75 mls/ hr CONT PRN 05/09/19 12:45 05/12/19 13:06 DC Ephedrine Sulfate (ePHEDrine PF IN SALINE SYRINGE) 50 mg STK-MED ONCE 05/08/19 20:36 05/08/19 20:36 DC Epinephrine HCl (Adrenalin) 1 mg STK-MED ONCE 05/08/19 21:39 05/08/19 21:39 DC Fentanyl Citrate (Fentanyl 2ml Vial) 50 mcg PRN Q5MIN PRN 05/08/19 19:45 05/08/19 23:59 DC Fluconazole/ Sodium Chloride 100 ml @ 100 mls/hr Q24H 05/08/19 22:00 05/12/19 21:06 100 MLS/HR Gabapentin (Neurontin) 300 mg PRN QHS PRN 05/12/19 17:45 05/12/19 20:53 300 MG Glycopyrrolate (Robinul) 1 mg STK-MED ONCE 05/08/19 21:27 05/08/19 21:27 DC Heparin Sodium (Porcine) (Heparin Sodium) 5,000 unit BID 05/11/19 10:00 05/13/19 09:47 5,000 UNIT Hydralazine HCl (Apresoline Inj) 10 mg PRN Q4HRS PRN 05/11/19 11:45 Hydromorphone HCl (Dilaudid) 1 mg PRN Q4HRS PRN 05/08/19 22:00 05/10/19 22:06 1 MG Info (CONTRAST GIVEN -- Rx MONITORING) 1 each PRN DAILY PRN 05/08/19 17:30 05/10/19 17:29 DC Insulin Glargine (Lantus Syringe) 15 unit QHS 05/12/19 21:00 05/12/19 21:07 15 UNIT Insulin Human Lispro (HumaLOG VIAL for OP,RR ONLY) 0-10 units PRN Q1HR PRN 05/08/19 19:45 05/08/19 23:59 DC Insulin Human Lispro (HumaLOG) 0-7 UNITS Q6HRS 05/10/19 00:00 05/13/19 08:27 DC 05/13/19 05:50 3 UNITS Insulin Human Regular 150 unit/ Sodium Chloride 151.5 ml @ 0 mls/hr CONT PRN 05/08/19 23:00 05/12/19 13:06 DC 05/08/19 23:03 5 MLS/HR Iohexol (Omnipaque 350 Mg/ml) 90 ml 1X ONCE 05/08/19 17:30 05/08/19 17:31 DC 05/08/19 17:45 90 ML Ketamine HCl (Ketamine) 50 mg STK-MED ONCE 05/08/19 20:12 05/08/19 20:12 DC Lactobacillus Rhamnosus (Culturelle) 1 cap BID 05/12/19 21:00 05/13/19 09:42 1 CAP Lidocaine HCl (Lidocaine Pf 2% Vial) 5 ml STK-MED ONCE 05/08/19 19:34 05/08/19 19:34 DC Lisinopril (Prinivil) 10 mg DAILY 05/13/19 09:00 05/13/19 09:00 10 MG Metoclopramide HCl (Reglan Vial) 10 mg 1X ONCE 05/08/19 17:00 05/08/19 17:01 DC 05/08/19 16:51 10 MG Multi-Ingredient Ointment (Analgesic [place]) 1 jazlyn PRN QID PRN 05/11/19 11:30 Neostigmine Methylsulfate (Neostigmine Methylsulfate) 5 mg STK-MED ONCE 05/08/19 21:27 05/08/19 21:27 DC Norepinephrine Bitartrate 250 ml @ 19.688 mls/ hr CONT PRN 05/09/19 12:45 Cancel Ondansetron HCl (Zofran) 4 mg PRN Q6HRS PRN 05/13/19 08:30 UNV Pantoprazole Sodium (PROTONIX VIAL for IV PUSH) 40 mg DAILY 05/09/19 09:00 05/12/19 08:30 DC 05/11/19 09:43 40 MG Pantoprazole Sodium (Protonix) 40 mg DAILYAC 05/12/19 09:00 05/13/19 08:01 40 MG Phenol (Chloraseptic) 1 spray PRN Q2HR PRN 05/11/19 11:30 05/11/19 13:12 1 SPRAY Phenylephrine HCl (PHENYLEPHRINE in 0.9% NACL PF) 1 mg STK-MED ONCE 05/08/19 20:33 05/08/19 20:33 DC Piperacillin Sod/ Tazobactam Sod 3.375 gm/Sodium Chloride 50 ml @ 100 mls/hr Q6HRS 05/09/19 00:00 05/13/19 05:42 100 MLS/HR Primidone (Mysoline) 25 mg BID 05/12/19 14:30 05/13/19 09:43 25 MG Prochlorperazine Edisylate (Compazine) 5 mg PACU PRN PRN 05/08/19 19:45 05/08/19 23:59 DC Propofol 20 ml @ As Directed STK-MED ONCE 05/08/19 19:34 05/08/19 19:34 DC Ringer's Solution 1,000 ml @ 30 mls/hr Q24H 05/08/19 20:00 05/09/19 01:00 DC 05/08/19 23:06 30 MLS/HR Rocuronium Vichy (Zemuron) 50 mg STK-MED ONCE 05/08/19 19:34 05/08/19 19:34 DC Sevoflurane (Ultane) 60 ml STK-MED ONCE 05/08/19 21:44 05/08/19 21:44 DC Simvastatin (Zocor) 10 mg QHS 05/12/19 21:00 05/12/19 20:53 10 MG Sodium Chloride 1,000 ml @ 60 mls/hr [id number] 05/09/19 15:30 05/12/19 10:57 DC 05/10/19 16:47 60 MLS/HR Succinylcholine Chloride (Anectine) 200 mg STK-MED ONCE 05/08/19 19:34 05/08/19 19:34 DC Tramadol HCl (Ultram) 50 mg PRN Q6HRS PRN 05/13/19 08:30 Venlafaxine HCl (Effexor Xr) 37.5 mg BID 05/13/19 09:00 05/13/19 08:33 DC Venlafaxine HCl (Effexor) 75 mg DAILY 05/12/19 13:30 05/12/19 14:20 DC 05/12/19 13:34 75 MG Lab Laboratory Tests Test 05/12/19 12:21 05/12/19 17:06 05/13/19 00:12 05/13/19 03:30 Glucose (Fingerstick) 245 mg/dL (70-99) 201 mg/dL (70-99) 249 mg/dL (70-99) Sodium Level 142 mmol/L (136-145) Potassium Level 3.6 mmol/L (3.5-5.1) Chloride Level 106 mmol/L (98-107) Carbon Dioxide Level 24 mmol/L (21-32) Anion Gap 12 (6-14) Blood Urea Nitrogen 29 mg/dL (8-26) Creatinine 1.5 mg/dL (0.7-1.3) Estimated GFR (Cockcroft-Gault) 45.9 Glucose Level 189 mg/dL (70-99) Calcium Level 8.9 mg/dL (8.5-10.1) Test 05/13/19 05:43 Glucose (Fingerstick) 183 mg/dL (70-99) Results All relevant outside records, renal labs, imaging studies, telemetry/EKG's were reviewed. ANA BERRIOS MD May 13, 2019 11:08
[2019-05-13] MEDS: AMINO AC 3%/ELECTROLYTE/GLYCER 1,000 ML IV SCH ×2 (14:00→23:36)
[2019-05-13 15:00] VITALS: BP_SYST 133; BP_SYST 138; BP_SYST 149; BP_DIAS 62; BP_DIAS 68; BP_DIAS 75
--- NOTE | 2019-05-13 16:06 | PATHOLOGY ---
[facility] Accession Number: [id number] . 01 Material submitted: . duodenum - DUODENAL ULCER . 01 Clinical history: . None provided . 02 Diagnosis: Segments of duodenal mucosa and submucosa, duodenal ulcer: - Focal mucosal erosion, ulceration, and acute inflammation, with prominent submucosal Nasrin's glands and focal foveolar metaplasia. (JPM:joe; 05/13/2019) QMS 05/13/2019 1514 Local . 02 Comment: There is no evidence of malignancy. . 02 Electronically signed: . Daniel Sarabia MD, Pathologist NPI- [id number] . 01 Gross description: . Received in formalin labeled "Jacob, Mega, duodenal ulcer," are two segments of agustin-brown and partially hemorrhagic mucosal-covered soft tissue measuring 0.8 x 0.7 x 0.6 cm (inked black) and 1.1 x 0.6 x 0.5 cm (inked yellow) in greatest dimensions. Serial sectioning through both segments reveals firm, pale agustin to slightly hemorrhagic cut surfaces. Both segments are serially sectioned and submitted entirely in cassette A1. (DAC; 05/12/2019) XDC/XDC 05/12/2019 1018 Local . 02 Pathologist provided ICD-10: K29.80, K25.9 . 02 CPT . 179073 Specimen Comment: A courtesy copy of this report has been sent to [phone], [phone] Specimen Comment: [phone], , Specimen Comment: Report sent to ,DR COLLINS,DR RIVERO / DR ALEJANDRO Performed at: 01 [facility] [address] [place] [address] [address], [place] [id number] MD Jon Cobb MD Phone: [phone] Performed at: [address] [id number] MD Daniel Sarabia MD Phone: [phone]
[2019-05-13 19:15] VITALS: BP 169/78
[2019-05-13] MEDS: SIMVASTATIN 10 MG TABLET PO SCH (21:13)
[2019-05-13] MEDS: FLUCONAZOLE 200MG/100ML PREMIX 100 ML IV SCH (21:14)
[2019-05-13] MEDS: INSULIN GLARGINE SYRINGE. SQ SCH (21:14)
[2019-05-13 23:28] VITALS: BP 161/72
[2019-05-14 02:57] VITALS: BP 148/53
[2019-05-14] MEDS: PIPERACILLIN/TAZOBACTAM 3.375 GM in IV NORMAL SALINE 50ML 50 ML IV SCH (05:49)
[2019-05-14] MEDS: PANTOPRAZOLE 40 MG TABLET.DR. PO SCH (06:04)
[2019-05-14 07:00] VITALS: BP 152/76
[2019-05-14] MEDS: IPRATRPIUM/ALBUTEROL 0.5/2.5MG 3 ML NEBU. NEB SCH ×4 (07:00→19:30)
[2019-05-14] MEDS: BUDESONIDE 0.5 MG/2 ML NEBU. NEB SCH ×2 (07:00→19:30)
--- NOTE | 2019-05-14 08:37 | PDOC ---
FABI MASSEY JUSTICE 05/14/19 8:37am: SURGICAL PROGRESS NOTE Subjective more abdominal pain this AM nausea, did not eat breakfast + flatus, no stool Vital Signs Vital Signs Date Time Temp Pulse Resp B/P (MAP) Pulse Ox O2 Delivery O2 Flow Rate FiO2 05/14/19 05:27 91 Nasal Cannula 2.0 05/14/19 02:57 98.2 94 18 148/53 (84) 98.2 I&O Intake and Output 05/14/19 07:00 Intake Total 480 ml Output Total 945 ml Balance -465 ml Intake Oral 480 ml Output Urine Total 775 ml Drainage Total 170 ml General: Alert, Cooperative, Other (appears in pain, ill appearing ) Abdomen: Soft, Other (moderate TTP diffusely on exam, dressing dry, drain bilious) Labs Laboratory Tests Test 05/12/19 12:21 05/12/19 17:06 05/13/19 00:12 05/13/19 03:30 Glucose (Fingerstick) 245 mg/dL (70-99) 201 mg/dL (70-99) 249 mg/dL (70-99) Sodium Level 142 mmol/L (136-145) Potassium Level 3.6 mmol/L (3.5-5.1) Chloride Level 106 mmol/L (98-107) Carbon Dioxide Level 24 mmol/L (21-32) Anion Gap 12 (6-14) Blood Urea Nitrogen 29 mg/dL (8-26) Creatinine 1.5 mg/dL (0.7-1.3) Estimated GFR (Cockcroft-Gault) 45.9 Glucose Level 189 mg/dL (70-99) Calcium Level 8.9 mg/dL (8.5-10.1) Test 05/13/19 05:43 05/13/19 12:02 Glucose (Fingerstick) 183 mg/dL (70-99) 161 mg/dL (70-99) Laboratory Tests Test 05/13/19 12:02 Glucose (Fingerstick) 161 mg/dL (70-99) Problem List Problems Medical Problems: (1) Perforated intestine, nontraumatic Status: Acute Assessment/Plan increased pain today, noted increased bilious drainage from drain--170 overnight labs, ct, npo JAZMINE URIBE MD 05/14/19 11:17am: SURGICAL PROGRESS NOTE Assessment/Plan Kris's exam noted. Patient having less pain no N/V. More bilioius drainage. Will obtain CT for further evaluation. 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 FABI MASSEY APRN May 14, 2019 8:37 am JAZMINE URIBE MD May 14, 2019 11:17 am
[2019-05-14] MEDS ORDERED: IOHEXOL 300 MG/ML 100ML VIAL. IV ONE (08:45)
[2019-05-14] MEDS ORDERED: IOHEXOL 240 MG/ML 50ML VIAL. PO ONE (08:45)
[2019-05-14] MEDS ORDERED: CONTRAST GIVEN. MC PRN (09:00)
[2019-05-14] MEDS: LACTOBACILLUS RHAMNOSUS GG 1 CAPSULE. PO SCH ×2 (09:13→21:08)
[2019-05-14] MEDS: VENLAFAXINE XR 37.5 MG CAP.ER.24H. PO SCH (09:13)
[2019-05-14] MEDS: LISINOPRIL 10 MG TABLET PO SCH (09:14)
[2019-05-14] MEDS: PRIMIDONE 50 MG TABLET PO SCH ×2 (09:14→21:08)
--- NOTE | 2019-05-14 09:17 | PDOC ---
PULMONARY PROGRESS NOTES Subjective PT DOES NOT FEEL WELL TODAY NOT MORE SOA Vitals Vital Signs Date Time Temp Pulse Resp B/P (MAP) Pulse Ox O2 Delivery O2 Flow Rate FiO2 05/14/19 07:00 97.8 102 16 152/76 (101) 89 Room Air 97.8 05/14/19 05:27 2.0 ROS: No Chest Pain General: Alert, Oriented X4 HEENT: Other (nc at perrl nose throat clear neck no lad no thyromegaly) Lungs: Clear, Other (deminished bs) Cardiovascular: S1, S2 Abdomen: Soft, Non-tender, Other (no mass) Neuro Exam: Alert Extremities: No Edema Skin: Warm Labs Laboratory Tests Test 05/12/19 12:21 05/12/19 17:06 05/13/19 00:12 05/13/19 03:30 Glucose (Fingerstick) 245 mg/dL (70-99) 201 mg/dL (70-99) 249 mg/dL (70-99) Sodium Level 142 mmol/L (136-145) Potassium Level 3.6 mmol/L (3.5-5.1) Chloride Level 106 mmol/L (98-107) Carbon Dioxide Level 24 mmol/L (21-32) Anion Gap 12 (6-14) Blood Urea Nitrogen 29 mg/dL (8-26) Creatinine 1.5 mg/dL (0.7-1.3) Estimated GFR (Cockcroft-Gault) 45.9 Glucose Level 189 mg/dL (70-99) Calcium Level 8.9 mg/dL (8.5-10.1) Test 05/13/19 05:43 05/13/19 12:02 Glucose (Fingerstick) 183 mg/dL (70-99) 161 mg/dL (70-99) Laboratory Tests Test 05/13/19 12:02 Glucose (Fingerstick) 161 mg/dL (70-99) Medications Active Scripts Medications Dose Route/Sig Max Daily Dose Days Date Category Venlafaxine Hcl 75 Mg Tablet Unknown Dose PO DAILY 02/18/19 Reported Simvastatin 10 Mg Tablet 10 Mg PO DAILY 02/18/19 Reported Metformin Hcl 1,000 Mg Tablet 1,000 Mg PO BIDWMEALS 02/18/19 Reported Meloxicam 15 Mg Tablet Unknown Dose PO DAILY 02/18/19 Reported Lisinopril 10 Mg Tablet Unknown Dose PO DAILY 02/18/19 Reported Humalog (Insulin Lispro) 100 Unit/1 Ml Cartridge 100 Unit SQ 02/18/19 Reported Sinemet 25-100 Mg Tablet (Carbidopa/Levodopa) 1 Each Tablet 1 Tab PO TID 02/18/19 Reported Impression . IMPRESSION: 1. Expected acute hypoxemic respiratory failure status post repair of a perforated duodenal ulcer. 2. Status post laparoscopy with open laparotomy for closure of a duodenal ulcer with Dawood patch. 3. Acute exacerbation of chronic obstructive pulmonary disease. 4. Tobacco dependence. 5. Hypertension. 6. Recent right shoulder repair. 7. Hypotension. 8. Fever. 9. Possible sepsis present upon admission. Impression: 1. Extravasation of oral contrast within the right upper quadrant extending from the first portion of the duodenum, concerning for persistent duodenal perforation. Scattered pneumoperitoneum. 2. Increased loculated fluid within the right mid abdomen adjacent to small bowel loops with wall thickening. 3. Increased mesenteric edema and body wall edema. 4. Small right pleural effusion with adjacent atelectasis. 5. Tiny focus of gas within the urinary bladder, likely related to recent instrumentation. Plan . WILL FOLLOW UP WITH SURGEON AGREE WITH CURRENT RX D/C SMOKING CONTINUE SUPPORT TG RAZO MD May 14, 2019 09:16
[2019-05-14] MEDS: HYDROmorphone 2 MG/ML VIAL IV PRN ×2 (09:19→21:13)
[2019-05-14] MEDS: HEPARIN for SUB-Q USE 5,000 UNIT/ML VIAL. SQ SCH ×2 (09:27→21:20)
[2019-05-14 09:29] LABS: CALCIUM 8.7 mg/dL (8.5-10.1); CREATININE 1.4 mg/dL (0.7-1.3); GFR 49.7; POTASSIUM 4.2 mmol/L (3.5-5.1)
[2019-05-14 09:37] LABS: ALBUMIN 2.2 g/dL (3.4-5.0); ALBUMIN/GLOBULIN RATIO 0.5 (1.0-1.7); TOTAL BILIRUBIN 0.7 mg/dL (0.2-1.0); TOTAL PROTEIN 6.4 g/dL (6.4-8.2)
[2019-05-14 09:49] LABS: BASO % 0 % (0-3); EOS % 0 % (0-3); HEMOGLOBIN 10.8 g/dL (13.0-17.5); LYMPH # 0.8 x10^3/uL (1.0-4.8); LYMPH % 6 % (24-48); MEAN CORPUSCULAR HEMOGLOBIN 31 pg (25-35); MEAN CORPUSCULAR HGB CONC 33 g/dL (31-37); MEAN CORPUSCULAR VOLUME 96 fL (79-100); MONO # 0.7 x10^3/uL (0.0-1.1); MONO % 6 % (0-9); NEUT % 87 % (31-73); PLATELET COUNT 304 x10^3/uL (140-400); RED BLOOD COUNT 3.45 x10^6/uL (4.30-5.70); RED CELL DISTRIBUTION WIDTH 14.1 % (11.5-14.5); WHITE BLOOD COUNT 12.6 x10^3/uL (4.0-11.0)
--- NOTE | 2019-05-14 09:57 | PDOC ---
Infectious Disease Note Subjective Subjective Some abd pain/nausea this am Increased drainage into MACKENZIE drain No F/C/S/V/D/SOA Vital Sign Vital Signs Vital Signs Date Time Temp Pulse Resp B/P (MAP) Pulse Ox O2 Delivery O2 Flow Rate FiO2 05/14/19 09:19 89 Nasal Cannula 2.0 05/14/19 09:14 102 152/76 05/14/19 07:00 97.8 16 97.8 Physical Exam PHYSICAL EXAM GENERAL: Laying in bed, alert, NAD HEENT: Pupils equally round. Oropharynx is clear. NECK: Supple. LUNGS: Clear to auscultation. HEART: S1, S2 regular. ABDOMEN: Obese, soft, mild distension. mild tender with hypoactive bowel sounds. Surgical dressings are dry and MACKENZIE drain intact- with increased output EXTREMITIES: No gross edema or cyanosis. SCDs in place. Right shoulder incision well-approx stable, clean. SKIN: Warm to touch. No signs of rash. NEUROLOGIC: Alert and oriented x3. Labs Lab Laboratory Tests Test 05/13/19 12:02 05/14/19 08:55 Glucose (Fingerstick) 161 mg/dL (70-99) Sodium Level 138 mmol/L (136-145) Potassium Level 4.2 mmol/L (3.5-5.1) Chloride Level 101 mmol/L (98-107) Carbon Dioxide Level 23 mmol/L (21-32) Anion Gap 14 (6-14) Blood Urea Nitrogen 23 mg/dL (8-26) Creatinine 1.4 mg/dL (0.7-1.3) Estimated GFR (Cockcroft-Gault) 49.7 BUN/Creatinine Ratio 16 (6-20) Glucose Level 228 mg/dL (70-99) Calcium Level 8.7 mg/dL (8.5-10.1) Total Bilirubin 0.7 mg/dL (0.2-1.0) Aspartate Amino Transf (AST/SGOT) 53 U/L (15-37) Alanine Aminotransferase (ALT/SGPT) 65 U/L (16-63) Alkaline Phosphatase 101 U/L (46-116) Total Protein 6.4 g/dL (6.4-8.2) Albumin 2.2 g/dL (3.4-5.0) Albumin/Globulin Ratio 0.5 (1.0-1.7) Objective Assessment Perforated duodenal ulcer s/p repair, 05/08 no apparent cultures Fever - better Pancytopenia - improved - now leukocytosis Abx allergy: Sulfa and cipro w/ rash Acute respiratory failure, now on venti mask -s/p Bronchoscopy with BAL, 05/09. mucous plugging, culture pending GREGG -some alvina Nonobstructing calculus of the right kidney. Recent right shoulder joint replacement, 05/06 at [facility] Plan of Care Will discont Zosyn and fluconazole Begin Dapto/Cefepime/Flagyl/Micafungin with leukocytosis and increased MACKENZIE drainage despite abx CT today f/u cultures/labs in am D/w at bedside D/w nursing YULIANA ONEAL MD May 14, 2019 09:57
--- NOTE | 2019-05-14 10:15 | PDOC ---
PROGRESS NOTES Chief Complaint Chief Complaint s/p perf viscus repair 05/09 05/14 CTExtravasation of oral contrast within the right upper quadrant extending from the first portion of the duodenum, concerning for persistent duodenal perforation. Scattered pneumoperitoneum. Increased loculated fluid within the right mid abdomen adjacent to small bowel loops with wall thickening. Increased mesenteric edema and body wall edema. SEVERE SEPSIS Begin Dapto/Cefepime/Flagyl/Micafungin with leukocytosis and increased MACKENZIE drainage despite abx CT today Severe protein-caloric malnutrition GREGG - likely vasomotor nephropathy Perforated duodenal ulcer - Diagnostic laparoscopy with open laparotomy and closure of duodenal ulcer and Dawood patch 05-09 Small amount of ascites is seen within the abdomen and pelvis HTN, Fair control Acute hypoxemic respiratory failure Acute exacerbation of chronic obstructive pulmonary disease. Tobacco dependence. Recent right shoulder repair Movement disorder NOS - parkinsonian symptoms - will restart meds HLD - restart statin DM 2 insulin req REcent RT shoulder sx (total arthroplasty at [facility]) MEt encepahlopathy sec to medical course Begin Dapto/Cefepime/Flagyl/Micafungin with leukocytosis and increased MACKENZIE drainage despite abx CT today History of Present Illness History of Present Illness on liq diet and eating fair only On procalamine t.o icu after repair of perf DU - s.p pressor? INsulin regimen at home is 35 qhs and 15 breakfast and lunch, and 20 units dinner fast acting BUt not resumed bec barely eating Metformin I will cont to hold as creat 1,5 (better than admission, has stabilized) Still some intermittent confusion accdg to from all his course PLAN: SSI shift to ACHS and high dose DIet per GS agreeable to SNU and SW is following IV abx still per ID WIll dc once shifted to PO abx, PO intake has picked up and cleared by GS FULL CODE RT shoulder repair c.o [facility] - ff up with their ortho 37 MIN PT EXAM, CHART REVIEW, > 50% OF TIME SPENT WITH EXAM, CHART REVIEW, PT CARE COORDINATION Vitals Vitals Vital Signs Date Time Temp Pulse Resp B/P (MAP) Pulse Ox O2 Delivery O2 Flow Rate FiO2 05/14/19 09:19 89 Nasal Cannula 2.0 05/14/19 09:14 102 152/76 05/14/19 07:00 97.8 16 97.8 Physical Exam Physical Exam GENERAL: Sitting on side of bed, alert, NAD in chair HEENT: Pupils equally round. Oropharynx is clear. NECK: Supple. LUNGS: Clear to auscultation. HEART: S1, S2 regular. ABDOMEN: Obese, soft, nontender with hypoactive bowel sounds. Surgical dressings are dry and MACKENZIE drain intact. EXTREMITIES: No gross edema or cyanosis. SCDs in place. Right shoulder incision well-approx stable, clean. SKIN: Warm to touch. No signs of rash. NEUROLOGIC: Alert and oriented x3. General: Alert, Cooperative, Other (appears in pain, ill appearing ) Heart: Regular rate, Normal S1, Normal S2, No murmurs, Gallops Lungs: Clear, Other (deminished bs) Abdomen: Soft, Other (moderate TTP diffusely on exam, dressing dry, drain bilious) Extremities: No clubbing, No cyanosis, No edema, Normal pulses, No tenderness/swelling Skin: No significant lesion Labs LABS CT ABD PELV W/ORAL IV CONTRAST History: Status post duodenal repair. Pain. Bilious drain drainage. Technique: After the administration of oral and intravenous contrast, CT imaging was performed of the abdomen and pelvis. Multiplanar images are reviewed. Contrast: 60 mL Omnipaque 300 IV contrast. Exposure: One or more of the following individualized dose reduction techniques were utilized for this examination: 1. Automated exposure control 2. Adjustment of the mA and/or kV according to patient size 3. Use of iterative reconstruction technique. Comparison: May 08, 2019 Findings: Lower chest: Small right pleural effusion with adjacent atelectasis. Left lower lobe subsegmental atelectasis. Abdomen and pelvis: There is oral contrast extravasation within the gallbladder fossa and right upper quadrant extending from the first portion of the duodenum. Persistent extraluminal gas within this region. Small scattered pneumoperitoneum. Surgical drain noted. Small perihepatic free fluid. Right mid abdomen somewhat loculated fluid along small bowel loops with associated bowel wall thickening. Tiny free fluid within the pelvis. Increased mesenteric edema. Increased body wall edema. The liver, spleen, adrenal glands, pancreas and gallbladder are unremarkable. No biliary ductal dilatation. Extensive atheromatous calcification throughout the nonaneurysmal abdominal aorta. Chronic calcified inferior aortic dissection, unchanged. Nonobstructing bilateral renal calculi. No hydronephrosis. Colonic diverticulosis. Hepatic flexure colonic wall thickening, likely reactive, similar compared to prior. Normal appendix. Multiple mild prominent air and fluid-filled loops of small bowel, may relate to ileus. No pathologic lymphadenopathy. Tiny focus of gas within the urinary bladder, likely related to instrumentation. Otherwise, the pelvic contents are unremarkable. Bones: Grade 1 anterolisthesis L4 on L5. Multilevel lumbar spondylosis. Impression: 1. Extravasation of oral contrast within the right upper quadrant extending from the first portion of the duodenum, concerning for persistent duodenal perforation. Scattered pneumoperitoneum. 2. Increased loculated fluid within the right mid abdomen adjacent to small bowel loops with wall thickening. 3. Increased mesenteric edema and body wall edema. 4. Small right pleural effusion with adjacent atelectasis. 5. Tiny focus of gas within the urinary bladder, likely related to recent instrumentation. FOR INTERNAL CODING PURPOSES Laboratory Tests Test 05/13/19 12:02 05/14/19 08:55 Glucose (Fingerstick) 161 mg/dL (70-99) White Blood Count 12.6 x10^3/uL (4.0-11.0) Red Blood Count 3.45 x10^6/uL (4.30-5.70) Hemoglobin 10.8 g/dL (13.0-17.5) Hematocrit 33.0 % (39.0-53.0) Mean Corpuscular Volume 96 fL (79-100) Mean Corpuscular Hemoglobin 31 pg (25-35) Mean Corpuscular Hemoglobin Concent 33 g/dL (31-37) Red Cell Distribution Width 14.1 % (11.5-14.5) Platelet Count 304 x10^3/uL (140-400) Neutrophils (%) (Auto) 87 % (31-73) Lymphocytes (%) (Auto) 6 % (24-48) Monocytes (%) (Auto) 6 % (0-9) Eosinophils (%) (Auto) 0 % (0-3) Basophils (%) (Auto) 0 % (0-3) Neutrophils # (Auto) 11.0 x10^3/uL (1.8-7.7) Lymphocytes # (Auto) 0.8 x10^3/uL (1.0-4.8) Monocytes # (Auto) 0.7 x10^3/uL (0.0-1.1) Eosinophils # (Auto) 0.0 x10^3/uL (0.0-0.7) Basophils # (Auto) 0.0 x10^3/uL (0.0-0.2) Sodium Level 138 mmol/L (136-145) Potassium Level 4.2 mmol/L (3.5-5.1) Chloride Level 101 mmol/L (98-107) Carbon Dioxide Level 23 mmol/L (21-32) Anion Gap 14 (6-14) Blood Urea Nitrogen 23 mg/dL (8-26) Creatinine 1.4 mg/dL (0.7-1.3) Estimated GFR (Cockcroft-Gault) 49.7 BUN/Creatinine Ratio 16 (6-20) Glucose Level 228 mg/dL (70-99) Calcium Level 8.7 mg/dL (8.5-10.1) Total Bilirubin 0.7 mg/dL (0.2-1.0) Aspartate Amino Transf (AST/SGOT) 53 U/L (15-37) Alanine Aminotransferase (ALT/SGPT) 65 U/L (16-63) Alkaline Phosphatase 101 U/L (46-116) Total Protein 6.4 g/dL (6.4-8.2) Albumin 2.2 g/dL (3.4-5.0) Albumin/Globulin Ratio 0.5 (1.0-1.7) Assessment and Plan Assessmemt and Plan Problems Medical Problems: (1) Perforated intestine, nontraumatic Status: Acute Comment Review of Relevant I have reviewed the following items adriano (where applicable) has been applied. Labs Laboratory Tests Test 05/12/19 12:21 05/12/19 17:06 05/13/19 00:12 05/13/19 03:30 Glucose (Fingerstick) 245 mg/dL (70-99) 201 mg/dL (70-99) 249 mg/dL (70-99) Sodium Level 142 mmol/L (136-145) Potassium Level 3.6 mmol/L (3.5-5.1) Chloride Level 106 mmol/L (98-107) Carbon Dioxide Level 24 mmol/L (21-32) Anion Gap 12 (6-14) Blood Urea Nitrogen 29 mg/dL (8-26) Creatinine 1.5 mg/dL (0.7-1.3) Estimated GFR (Cockcroft-Gault) 45.9 Glucose Level 189 mg/dL (70-99) Calcium Level 8.9 mg/dL (8.5-10.1) Test 05/13/19 05:43 05/13/19 12:02 05/14/19 08:55 Glucose (Fingerstick) 183 mg/dL (70-99) 161 mg/dL (70-99) White Blood Count 12.6 x10^3/uL (4.0-11.0) Red Blood Count 3.45 x10^6/uL (4.30-5.70) Hemoglobin 10.8 g/dL (13.0-17.5) Hematocrit 33.0 % (39.0-53.0) Mean Corpuscular Volume 96 fL (79-100) Mean Corpuscular Hemoglobin 31 pg (25-35) Mean Corpuscular Hemoglobin Concent 33 g/dL (31-37) Red Cell Distribution Width 14.1 % (11.5-14.5) Platelet Count 304 x10^3/uL (140-400) Neutrophils (%) (Auto) 87 % (31-73) Lymphocytes (%) (Auto) 6 % (24-48) Monocytes (%) (Auto) 6 % (0-9) Eosinophils (%) (Auto) 0 % (0-3) Basophils (%) (Auto) 0 % (0-3) Neutrophils # (Auto) 11.0 x10^3/uL (1.8-7.7) Lymphocytes # (Auto) 0.8 x10^3/uL (1.0-4.8) Monocytes # (Auto) 0.7 x10^3/uL (0.0-1.1) Eosinophils # (Auto) 0.0 x10^3/uL (0.0-0.7) Basophils # (Auto) 0.0 x10^3/uL (0.0-0.2) Sodium Level 138 mmol/L (136-145) Potassium Level 4.2 mmol/L (3.5-5.1) Chloride Level 101 mmol/L (98-107) Carbon Dioxide Level 23 mmol/L (21-32) Anion Gap 14 (6-14) Blood Urea Nitrogen 23 mg/dL (8-26) Creatinine 1.4 mg/dL (0.7-1.3) Estimated GFR (Cockcroft-Gault) 49.7 BUN/Creatinine Ratio 16 (6-20) Glucose Level 228 mg/dL (70-99) Calcium Level 8.7 mg/dL (8.5-10.1) Total Bilirubin 0.7 mg/dL (0.2-1.0) Aspartate Amino Transf (AST/SGOT) 53 U/L (15-37) Alanine Aminotransferase (ALT/SGPT) 65 U/L (16-63) Alkaline Phosphatase 101 U/L (46-116) Total Protein 6.4 g/dL (6.4-8.2) Albumin 2.2 g/dL (3.4-5.0) Albumin/Globulin Ratio 0.5 (1.0-1.7) Laboratory Tests Test 05/13/19 12:02 05/14/19 08:55 Glucose (Fingerstick) 161 mg/dL (70-99) White Blood Count 12.6 x10^3/uL (4.0-11.0) Red Blood Count 3.45 x10^6/uL (4.30-5.70) Hemoglobin 10.8 g/dL (13.0-17.5) Hematocrit 33.0 % (39.0-53.0) Mean Corpuscular Volume 96 fL (79-100) Mean Corpuscular Hemoglobin 31 pg (25-35) Mean Corpuscular Hemoglobin Concent 33 g/dL (31-37) Red Cell Distribution Width 14.1 % (11.5-14.5) Platelet Count 304 x10^3/uL (140-400) Neutrophils (%) (Auto) 87 % (31-73) Lymphocytes (%) (Auto) 6 % (24-48) Monocytes (%) (Auto) 6 % (0-9) Eosinophils (%) (Auto) 0 % (0-3) Basophils (%) (Auto) 0 % (0-3) Neutrophils # (Auto) 11.0 x10^3/uL (1.8-7.7) Lymphocytes # (Auto) 0.8 x10^3/uL (1.0-4.8) Monocytes # (Auto) 0.7 x10^3/uL (0.0-1.1) Eosinophils # (Auto) 0.0 x10^3/uL (0.0-0.7) Basophils # (Auto) 0.0 x10^3/uL (0.0-0.2) Sodium Level 138 mmol/L (136-145) Potassium Level 4.2 mmol/L (3.5-5.1) Chloride Level 101 mmol/L (98-107) Carbon Dioxide Level 23 mmol/L (21-32) Anion Gap 14 (6-14) Blood Urea Nitrogen 23 mg/dL (8-26) Creatinine 1.4 mg/dL (0.7-1.3) Estimated GFR (Cockcroft-Gault) 49.7 BUN/Creatinine Ratio 16 (6-20) Glucose Level 228 mg/dL (70-99) Calcium Level 8.7 mg/dL (8.5-10.1) Total Bilirubin 0.7 mg/dL (0.2-1.0) Aspartate Amino Transf (AST/SGOT) 53 U/L (15-37) Alanine Aminotransferase (ALT/SGPT) 65 U/L (16-63) Alkaline Phosphatase 101 U/L (46-116) Total Protein 6.4 g/dL (6.4-8.2) Albumin 2.2 g/dL (3.4-5.0) Albumin/Globulin Ratio 0.5 (1.0-1.7) Medications Current Medications Fentanyl Citrate (Fentanyl 2ml Vial) 50 mcg PRN Q15MIN PRN IV PAIN GREATER THAN 3/10 Last administered on 05/08/19 19:27; Start 05/08/19 at 16:30; Stop 05/08/19 at 21:00; Status DC Sodium Chloride 1,000 ml @ 250 mls/hr Q4H IV Last administered on 05/08/19at 16:54; Start 05/08/19 at 16:19; Stop 05/08/19 at 20:18; Status DC Metoclopramide HCl (Reglan Vial) 10 mg 1X ONCE IVP Last administered on 05/08/19at 16:51; Start 05/08/19 at 17:00; Stop 05/08/19 at 17:01; Status DC Diphenhydramine HCl (Benadryl) 25 mg 1X ONCE IVP Last administered on 05/08/19at 16:51; Start 05/08/19 at 17:00; Stop 05/08/19 at 17:01; Status DC Iohexol (Omnipaque 350 Mg/ml) 90 ml 1X ONCE IV Last administered on 05/08/19at 17:45; Start 05/08/19 at 17:30; Stop 05/08/19 at 17:31; Status DC Info (CONTRAST GIVEN -- Rx MONITORING) 1 each PRN DAILY PRN MC SEE COMMENTS; Start 05/08/19 at 17:30; Stop 05/10/19 at 17:29; Status DC Hydromorphone HCl (Dilaudid) 1 mg 1X ONCE IV Last administered on 05/08/19at 18:23; Start 05/08/19 at 18:30; Stop 05/08/19 at 18:31; Status DC Piperacillin Sod/ Tazobactam Sod 3.375 gm/Sodium Chloride 50 ml @ 100 mls/hr 1X ONCE IV Last administered on 05/08/19at 19:06; Start 05/08/19 at 19:00; Stop 05/08/19 at 19:29; Status DC Sodium Chloride 1,000 ml @ 1,000 mls/hr 1X ONCE IV Last administered on 05/08/19at 19:06; Start 05/08/19 at 19:00; Stop 05/08/19 at 19:59; Status DC Ondansetron HCl (Zofran) 4 mg STK-MED ONCE .ROUTE ; Start 05/08/19 at 19:34; Stop 05/08/19 at 19:34; Status DC Propofol 20 ml @ As Directed STK-MED ONCE IV ; Start 05/08/19 at 19:34; Stop 05/08/19 at 19:34; Status DC Lidocaine HCl (Lidocaine Pf 2% Vial) 5 ml STK-MED ONCE .ROUTE ; Start 05/08/19 at 19:34; Stop 05/08/19 at 19:34; Status DC Dexamethasone Sodium Phosphate (Decadron) 4 mg STK-MED ONCE .ROUTE ; Start 05/08/19 at 19:34; Stop 05/08/19 at 19:34; Status DC Fentanyl Citrate (Fentanyl 2ml Vial) 100 mcg STK-MED ONCE .ROUTE ; Start 05/08/19 at 19:34; Stop 05/08/19 at 19:34; Status DC Succinylcholine Chloride (Anectine) 200 mg STK-MED ONCE .ROUTE ; Start 05/08/19 at 19:34; Stop 05/08/19 at 19:34; Status DC Rocuronium [place] (Zemuron) 50 mg STK-MED ONCE .ROUTE ; Start 05/08/19 at 19:34; Stop 05/08/19 at 19:34; Status DC Ondansetron HCl (Zofran) 4 mg PRN Q6HRS PRN IV NAUSEA/VOMITING; Start 05/08/19 at 19:45; Stop 05/08/19 at 23:59; Status DC Fentanyl Citrate (Fentanyl 2ml Vial) 25 mcg PRN Q5MIN PRN IV MILD PAIN 1-3; Start 05/08/19 at 19:45; Stop 05/08/19 at 23:59; Status DC Fentanyl Citrate (Fentanyl 2ml Vial) 50 mcg PRN Q5MIN PRN IV MODERATE TO SEVERE PAIN; Start 05/08/19 at 19:45; Stop 05/08/19 at 23:59; Status DC Ringer's Solution 1,000 ml @ 30 mls/hr Q24H IV Last administered on 05/08/19at 23:06; Start 05/08/19 at 20:00; Stop 05/09/19 at 01:00; Status DC Prochlorperazine Edisylate (Compazine) 5 mg PACU PRN PRN IV NAUSEA, MRX1; Start 05/08/19 at 19:45; Stop 05/08/19 at 23:59; Status DC Insulin Human Lispro (HumaLOG VIAL for OP,RR ONLY) 0-10 units PRN Q1HR PRN SQ PER PROTOCOL; Start 05/08/19 at 19:45; Stop 05/08/19 at 23:59; Status DC Bupivacaine HCl/ Epinephrine Bitart (Sensorcaine-Epi 0.25%-1:410851 Mpf) 30 ml 1X ONCE INJ Last administered on 05/08/19at 20:32; Start 05/08/19 at 20:00; Stop 05/08/19 at 20:01; Status DC Ketamine HCl (Ketamine) 50 mg STK-MED ONCE .ROUTE ; Start 05/08/19 at 20:12; Stop 05/08/19 at 20:12; Status DC Phenylephrine HCl (PHENYLEPHRINE in 0.9% NACL PF) 1 mg STK-MED ONCE IV ; Start 05/08/19 at 20:33; Stop 05/08/19 at 20:33; Status DC Ephedrine Sulfate (ePHEDrine PF IN SALINE SYRINGE) 50 mg STK-MED ONCE IV ; Start 05/08/19 at 20:36; Stop 05/08/19 at 20:36; Status DC Albumin Human 500 ml @ As Directed STK-MED ONCE IV ; Start 05/08/19 at 20:55; Stop 05/08/19 at 20:55; Status DC Glycopyrrolate (Robinul) 1 mg STK-MED ONCE .ROUTE ; Start 05/08/19 at 21:27; Stop 05/08/19 at 21:27; Status DC Neostigmine Methylsulfate (Neostigmine Methylsulfate) 5 mg STK-MED ONCE .ROUTE ; Start 05/08/19 at 21:27; Stop 05/08/19 at 21:27; Status DC Bupivacaine HCl (Sensorcaine Mpf 0.5%) 30 ml STK-MED ONCE .ROUTE ; Start 05/08/19 at 21:39; Stop 05/08/19 at 21:39; Status DC Epinephrine HCl (Adrenalin) 1 mg STK-MED ONCE .ROUTE ; Start 05/08/19 at 21:39; Stop 05/08/19 at 21:39; Status DC Sevoflurane (Ultane) 60 ml STK-MED ONCE IH ; Start 05/08/19 at 21:44; Stop 05/08/19 at 21:44; Status DC Sodium Chloride 1,000 ml @ 125 mls/hr Q8H IV Last administered on 05/08/19at 23:45; Start 05/08/19 at 22:00; Stop 05/09/19 at 15:21; Status DC Ondansetron HCl (Zofran) 4 mg PRN Q6HRS PRN IVP NAUSEA/VOMITING 1ST CHOICE; Start 05/08/19 at 22:00 Fluconazole/ Sodium Chloride 100 ml @ 100 mls/hr Q24H IV Last administered on 05/13/19at 21:14; Start 05/08/19 at 22:00 Hydromorphone HCl (Dilaudid) 1 mg PRN Q4HRS PRN IV SEVERE PAIN 7-10 Last administered on 05/14/19at 09:19; Start 05/08/19 at 22:00 Piperacillin Sod/ Tazobactam Sod 3.375 gm/Sodium Chloride 50 ml @ 100 mls/hr Q6HRS IV Last administered on 05/14/19at 05:49; Start 05/09/19 at 00:00 Pantoprazole Sodium (PROTONIX VIAL for IV PUSH) 40 mg DAILY IVP Last administered on 05/11/19at 09:43; Start 05/09/19 at 09:00; Stop 05/12/19 at 08:30; Status DC Insulin Human Regular 150 unit/ Sodium Chloride 151.5 ml @ 0 mls/hr CONT PRN IV SEE I/O RECORD; Start 05/08/19 at 23:00; Status UNV Insulin Human Regular 150 unit/ Sodium Chloride 151.5 ml @ 0 mls/hr CONT PRN IV SEE I/O RECORD Last administered on 05/08/19at 23:03; Start 05/08/19 at 23:00; Stop 05/12/19 at 13:06; Status DC Dextrose (Dextrose 50%-Water Syringe) 12.5 gm PRN Q15MIN PRN IV LOW BLOOD SUGAR; Start 05/08/19 at 23:00 Dextrose 250 ml PRN Q15MIN PRN IV LOW BLOOD SUGAR; Start 05/08/19 at 23:00 Albumin Human 500 ml @ 250 mls/hr 1X ONCE IV Last administered on 05/09/19at 00:10; Start 05/09/19 at 00:30; Stop 05/09/19 at 02:29; Status DC Norepinephrine Bitartrate 250 ml @ 20.156 mls/ hr CONT PRN IV SEE I/O RECORD; Start 05/09/19 at 00:00; Stop 05/12/19 at 13:06; Status DC Dextrose/Sodium Chloride 1,000 ml @ 150 mls/hr Q6H40M IV Last administered on 05/09/19at 12:28; Start 05/09/19 at 08:45; Stop 05/09/19 at 18:30; Status DC Sodium Chloride 500 ml @ 500 mls/hr PRN Q2HR PRN IV SEE COMMENTS; Start 05/09/19 at 11:15 Sodium Chloride 1,000 ml @ 2,190 mls/hr Q28M IV ; Start 05/09/19 at 12:39; Stop 05/09/19 at 13:39; Status DC Sodium Chloride 500 ml @ 1,000 mls/hr PRN Q30MIN PRN IV SEE COMMENTS; Start 05/09/19 at 12:45; Stop 05/09/19 at 12:50; Status DC Norepinephrine Bitartrate 250 ml @ 19.688 mls/ hr CONT PRN IV SEE I/O RECORD; Start 05/09/19 at 12:45; Status Cancel Dobutamine HCl/ Dextrose 250 ml @ 15.75 mls/ hr CONT PRN IV SEE I/O RECORD; Start 05/09/19 at 12:45; Stop 05/12/19 at 13:06; Status DC Insulin Human Lispro (HumaLOG) 0-7 UNITS TIDWMEALS SQ ; Start 05/09/19 at 17:00; Stop 05/09/19 at 19:36; Status DC Dextrose (Dextrose 50%-Water Syringe) 12.5 gm PRN Q15MIN PRN IV SEE COMMENTS; Start 05/09/19 at 15:30; Status UNV Sodium Chloride 1,000 ml @ 60 mls/hr [id number] IV Last administered on 05/10/19at 16:47; Start 05/09/19 at 15:30; Stop 05/12/19 at 10:57; Status DC Insulin Human Lispro (HumaLOG) 0-7 UNITS Q6HRS SQ Last administered on 05/13/19at 05:50; Start 05/10/19 at 00:00; Stop 05/13/19 at 08:27; Status DC Albuterol/ Ipratropium (Duoneb) 3 ml RTQID NEB Last administered on 05/13/19at 19:29; Start 05/10/19 at 08:00 Budesonide (Pulmicort) 0.5 mg RTBID NEB Last administered on 05/13/19at 19:29; Start 05/10/19 at 08:00 Heparin Sodium (Porcine) (Heparin Sodium) 5,000 unit BID SQ Last administered on 05/14/19at 09:27; Start 05/11/19 at 10:00 Phenol (Chloraseptic) 1 spray PRN Q2HR PRN PO SORE THROAT Last administered on 05/11/19at 13:12; Start 05/11/19 at 11:30 Multi-Ingredient Ointment (Analgesic Pompey) 1 jazlyn PRN QID PRN TP MUSCLE PAIN; Start 05/11/19 at 11:30 Amino Acids/ Glycerin/ Electrolytes 1,000 ml @ 80 mls/hr [id number] IV Last administered on 05/13/19at 23:36; Start 05/11/19 at 12:00 Hydralazine HCl (Apresoline Inj) 10 mg PRN Q4HRS PRN IVP ELEVATED BP, SEE COMMENTS; Start 05/11/19 at 11:45 Pantoprazole Sodium (Protonix) 40 mg DAILYAC PO Last administered on 05/14/19 06:04; Start 05/12/19 at 09:00 Carbidopa/Levodopa (Sinemet 25/100) 1 tab TID PO ; Start 05/12/19 at 14:00; Stop 05/12/19 at 13:40; Status DC Lisinopril (Prinivil) 10 mg DAILY PO Last administered on 05/14/19at 09:14; Start 05/13/19 at 09:00 Simvastatin (Zocor) 10 mg QHS PO Last administered on 05/13/19at 21:13; Start 05/12/19 at 21:00 Venlafaxine HCl (Effexor) 75 mg DAILY PO Last administered on 05/12/19at 13:34; Start 05/12/19 at 13:30; Stop 05/12/19 at 14:20; Status DC Primidone (Mysoline) 50 mg DAILY PO ; Start 05/12/19 at 13:45; Stop 05/12/19 at 14:27; Status DC Insulin Glargine (Lantus Syringe) 15 unit QHS SQ Last administered on at 21:14; Start 05/12/19 at 21:00 Venlafaxine HCl (Effexor Xr) 75 mg DAILY PO Last administered on 05/14/19 09:13; Start 05/13/19 at 09:00 Lactobacillus Rhamnosus (Culturelle) 1 cap BID PO Last administered on 05/14/19 09:13; Start 05/12/19 at 21:00 Primidone (Mysoline) 25 mg BID PO Last administered on 05/14/19 09:14; Start 05/12/19 at 14:30 Gabapentin (Neurontin) 300 mg PRN QHS PRN PO NEUROPATHIC PAIN Last administered on 05/12/19at 20:53; Start 05/12/19 at 17:45 Acetaminophen (Tylenol) 500 mg PRN Q6HRS PRN PO MILD PAIN / TEMP; Start 05/13/19 at 08:30 Tramadol HCl (Ultram) 50 mg PRN Q6HRS PRN PO PAIN MOD TO SEV Last administered on 05/14/19at 04:27; Start 05/13/19 at 08:30 Clonidine HCl (Catapres) 0.1 mg PRN Q1HR PRN PO HYPERTENSION; Start 05/13/19 at 08:30 Ondansetron HCl (Zofran) 4 mg PRN Q6HRS PRN IVP NAUSEA/VOMITING; Start 05/13/19 at 08:30; Status UNV Venlafaxine HCl (Effexor Xr) 37.5 mg BID PO ; Start 05/13/19 at 09:00; Stop 05/13/19 at 08:33; Status DC Iohexol (Omnipaque 240 Mg/ml) 30 ml 1X ONCE PO ; Start 05/14/19 at 08:45; Stop 05/14/19 at 08:48; Status DC Iohexol (Omnipaque 300 Mg/ml) 60 ml 1X ONCE IV ; Start 05/14/19 at 08:45; Stop 05/14/19 at 08:48; Status DC Info (CONTRAST GIVEN -- Rx MONITORING) 1 each PRN DAILY PRN MC SEE COMMENTS; Start 05/14/19 at 09:00; Stop 05/16/19 at 08:59 Active Scripts Active Reported Venlafaxine Hcl Er (Venlafaxine Hcl) 75 Mg Cap.er.24h 75 Mg PO DAILY Simvastatin 10 Mg Tablet 10 Mg PO DAILY Metformin Hcl 1,000 Mg Tablet 1,000 Mg PO BIDWMEALS Meloxicam 15 Mg Tablet Unknown Dose PO DAILY Lisinopril 10 Mg Tablet Unknown Dose PO DAILY Humalog (Insulin Lispro) 100 Unit/1 Ml Cartridge 100 Unit SQ Sinemet 25-100 Mg Tablet (Carbidopa/Levodopa) 1 Each Tablet 1 Tab PO TID Vitals/I & O Vital Sign - Last 24 Hours 05/13/19 05/13/19 05/13/19 05/13/19 11:00 15:00 15:00 15:00 Temp 97.8 97.8 Pulse 80 90 93 96 Resp 18 18 18 18 B/P (MAP) 136/65 (88) 133/62 (85) 149/68 (95) 138/75 (96) Pulse Ox 92 O2 Delivery Room Air 05/13/19 05/13/19 05/13/19 05/13/19 15:37 19:15 19:29 23:28 Temp 97.5 98.1 97.5 98.1 Pulse 90 85 Resp 18 22 B/P (MAP) 169/78 (108) 161/72 (101) Pulse Ox 96 91 96 93 O2 Delivery Nasal Cannula Room Air Room Air Room Air O2 Flow Rate 2.0 05/14/19 05/14/19 05/14/19 05/14/19 02:57 04:27 05:27 07:00 Temp 98.2 97.8 98.2 97.8 Pulse 94 102 Resp 18 16 B/P (MAP) 148/53 (84) 152/76 (101) Pulse Ox 91 91 91 89 O2 Delivery Room Air Nasal Cannula Nasal Cannula Room Air O2 Flow Rate 2.0 05/14/19 05/14/19 09:14 09:19 Pulse 102 B/P (MAP) 152/76 Pulse Ox 89 O2 Delivery Nasal Cannula O2 Flow Rate 2.0 Intake and Output 05/13/19 05/13/19 05/14/19 15:00 23:00 07:00 Intake Total 480 ml Output Total 70 ml 875 ml Balance -70 ml -395 ml JAZMINE COLLINS MD May 14, 2019 10:15
--- NOTE | 2019-05-14 10:18 | NUR ---
SW following. Discussed with RN, pt has been accepted at [facility]. RN advised pt is having some leakage from the MACKENZIE drain, and may need another surgery. Pt still on PPN, which should be dc'd before discharge. SW will continue to follow.
[2019-05-14 11:00] VITALS: BP 139/83
--- NOTE | 2019-05-14 11:38 | RAD ---
CT ABD PELV W/ORAL IV CONTRAST History: Status post duodenal repair. Pain. Bilious drain drainage. Technique: After the administration of oral and intravenous contrast, CT imaging was performed of the abdomen and pelvis. Multiplanar images are reviewed. Contrast: 60 mL Omnipaque 300 IV contrast. Exposure: One or more of the following individualized dose reduction techniques were utilized for this examination: 1. Automated exposure control 2. Adjustment of the mA and/or kV according to patient size 3. Use of iterative reconstruction technique. Comparison: May 08, 2019 Findings: Lower chest: Small right pleural effusion with adjacent atelectasis. Left lower lobe subsegmental atelectasis. Abdomen and pelvis: There is oral contrast extravasation within the gallbladder fossa and right upper quadrant extending from the first portion of the duodenum. Persistent extraluminal gas within this region. Small scattered pneumoperitoneum. Surgical drain noted. Small perihepatic free fluid. Right mid abdomen somewhat loculated fluid along small bowel loops with associated bowel wall thickening. Tiny free fluid within the pelvis. Increased mesenteric edema. Increased body wall edema. The liver, spleen, adrenal glands, pancreas and gallbladder are unremarkable. No biliary ductal dilatation. Extensive atheromatous calcification throughout the nonaneurysmal abdominal aorta. Chronic calcified inferior aortic dissection, unchanged. Nonobstructing bilateral renal calculi. No hydronephrosis. Colonic diverticulosis. Hepatic flexure colonic wall thickening, likely reactive, similar compared to prior. Normal appendix. Multiple mild prominent air and fluid-filled loops of small bowel, may relate to ileus. No pathologic lymphadenopathy. Tiny focus of gas within the urinary bladder, likely related to instrumentation. Otherwise, the pelvic contents are unremarkable. Bones: Grade 1 anterolisthesis L4 on L5. Multilevel lumbar spondylosis. Impression: 1. Extravasation of oral contrast within the right upper quadrant extending from the first portion of the duodenum, concerning for persistent duodenal perforation. Scattered pneumoperitoneum. 2. Increased loculated fluid within the right mid abdomen adjacent to small bowel loops with wall thickening. 3. Increased mesenteric edema and body wall edema. 4. Small right pleural effusion with adjacent atelectasis. 5. Tiny focus of gas within the urinary bladder, likely related to recent instrumentation. FOR INTERNAL CODING PURPOSES Critical result: Findings discussed with patient's nurse at 05/14/2019 11:20 AM. RESULT CODE: (C) Electronically signed by: Benny Crabtree DO (05/14/2019 11:35 AM) [facility]
[2019-05-14] MEDS: MICAFUNGIN 100 MG in IV DEXTROSE 5% 100ML 100 ML IV SCH (12:05)
[2019-05-14] MEDS: CEFEPIME HCL IV Push 2 GM VIAL. IVP SCH ×2 (12:07→21:09)
[2019-05-14] MEDS ORDERED: LIDOCAINE WITH 8.4% SOD BICARB 3 ML DISP.SYRIN. ONE (12:43)
[2019-05-14] MEDS ORDERED: LIDOCAINE WITH 8.4% SOD BICARB 3 ML DISP.SYRIN. IJ ONE (13:00)
--- NOTE | 2019-05-14 13:26 | PDOC ---
SUBJECTIVE ROS c/o mild abd pain/nausea states overall not feeling very good Increased drainage into MACKENZIE drain- 800 ml OBJECTIVE Vital Signs Vital Signs Date Time Temp Pulse Resp B/P (MAP) Pulse Ox O2 Delivery O2 Flow Rate FiO2 05/14/19 12:05 91 Room Air 2.0 05/14/19 11:00 98.2 109 16 139/83 (101) 98.2 I & 0 Intake and Output 05/14/19 07:00 Intake Total 480 ml Output Total 945 ml Balance -465 ml Intake Oral 480 ml Output Urine Total 775 ml Drainage Total 170 ml PHYSICAL EXAM Physical Exam General:NAD HEENT: OM moist, Neck supple Lungs: Clear to auscultation Heart: Regular rate, Abdomen: Soft , has MACKENZIE drain Extremities: No edema, Skin: No significant lesion, No rash Neuro: grossly normal - No alcantara DIAGNOSIS/ASSESSMENT Assessment & Plan GREGG - ATN 2/2 to Perf Dudod ulcer/Hypotension /IV Contrast with CTA Non Oliguric , NSAID use for shoulder surgery recently (Meloxicam per home med list ) and ASA Stable renal function - Cr peaked at 3.1 , improving slowly -->1.5 -->1.4 Supportive care, strict I/O, monitor Perforated duodenal ulcer with free air peritonitis- s/p diagnostic laparoscopy with open laparotomy and closure of duodenal ulcer and Dawood patch Increased drained in MACKENZIE, getting NG tube placed HTN- on antihypertensives Has been restarted back on Lisinopril DM - Per Primary Nephrolithiasis- gives Hx of passing stone few years back CT scan shows Kidney stone, Non obstructing Panyctopenia- wbc Normal, Plat and Hgb low Per primary Anemia - Hgb stable Hypoxia- resolved COMMENT/RELEVANT DATA Meds Current Medications Medications (Trade) Dose Ordered Sig/Ventura Start Time Stop Time Status Last Admin Dose Admin Acetaminophen (Tylenol) 500 mg PRN Q6HRS PRN 05/13/19 08:30 Albumin Human 500 ml @ 250 mls/hr 1X ONCE 05/09/19 00:30 05/09/19 02:29 DC 05/09/19 00:10 250 MLS/HR Albuterol/ Ipratropium (Duoneb) 3 ml RTQID 05/10/19 08:00 05/14/19 11:12 3 ML Amino Acids/ Glycerin/ Electrolytes 1,000 ml @ 80 mls/hr [id number] 05/11/19 12:00 05/13/19 23:36 80 MLS/HR Budesonide (Pulmicort) 0.5 mg RTBID 05/10/19 08:00 05/14/19 07:00 0.5 MG Bupivacaine HCl (Sensorcaine Mpf 0.5%) 30 ml STK-MED ONCE 05/08/19 21:39 05/08/19 21:39 DC Bupivacaine HCl/ Epinephrine Bitart (Sensorcaine-Epi 0.25%-1:[id number] Mpf) 30 ml 1X ONCE 05/08/19 20:00 05/08/19 20:01 DC 05/08/19 20:32 26 ML Carbidopa/Levodopa (Sinemet 25/100) 1 tab TID 05/12/19 14:00 05/12/19 13:40 DC Cefepime HCl (Maxipime) 2 gm Q8HRS 05/14/19 12:00 05/14/19 12:07 2 GM Clonidine HCl (Catapres) 0.1 mg PRN Q1HR PRN 05/13/19 08:30 Daptomycin 570 mg/ Sodium Chloride 50 ml @ 100 mls/hr Q24H 05/14/19 11:30 Dexamethasone Sodium Phosphate (Decadron) 4 mg STK-MED ONCE 05/08/19 19:34 05/08/19 19:34 DC Dextrose (Dextrose 50%-Water Syringe) 12.5 gm PRN Q15MIN PRN 05/09/19 15:30 UNV Dextrose/Sodium Chloride 1,000 ml @ 150 mls/hr Q6H40M 05/09/19 08:45 05/09/19 18:30 DC 05/09/19 12:28 150 MLS/HR Diphenhydramine HCl (Benadryl) 25 mg 1X ONCE 05/08/19 17:00 05/08/19 17:01 DC 05/08/19 16:51 25 MG Dobutamine HCl/ Dextrose 250 ml @ 15.75 mls/ hr CONT PRN 05/09/19 12:45 05/12/19 13:06 DC Ephedrine Sulfate (ePHEDrine PF IN SALINE SYRINGE) 50 mg STK-MED ONCE 05/08/19 20:36 05/08/19 20:36 DC Epinephrine HCl (Adrenalin) 1 mg STK-MED ONCE 05/08/19 21:39 05/08/19 21:39 DC Fentanyl Citrate (Fentanyl 2ml Vial) 50 mcg PRN Q5MIN PRN 05/08/19 19:45 05/08/19 23:59 DC Fluconazole/ Sodium Chloride 100 ml @ 100 mls/hr Q24H 05/08/19 22:00 05/14/19 10:28 DC 05/13/19 21:14 100 MLS/HR Gabapentin (Neurontin) 300 mg PRN QHS PRN 05/12/19 17:45 05/12/19 20:53 300 MG Glycopyrrolate (Robinul) 1 mg STK-MED ONCE 05/08/19 21:27 05/08/19 21:27 DC Heparin Sodium (Porcine) (Heparin Sodium) 5,000 unit BID 05/11/19 10:00 05/14/19 09:27 5,000 UNIT Hydralazine HCl (Apresoline Inj) 10 mg PRN Q4HRS PRN 05/11/19 11:45 Hydromorphone HCl (Dilaudid) 1 mg PRN Q4HRS PRN 05/08/19 22:00 05/14/19 09:19 1 MG Info (CONTRAST GIVEN -- Rx MONITORING) 1 each PRN DAILY PRN 05/14/19 09:00 05/16/19 08:59 Insulin Glargine (Lantus Syringe) 15 unit QHS 05/12/19 21:00 05/13/19 21:14 15 UNIT Insulin Human Lispro (HumaLOG VIAL for OP,RR ONLY) 0-10 units PRN Q1HR PRN 05/08/19 19:45 05/08/19 23:59 DC Insulin Human Lispro (HumaLOG) 0-7 UNITS Q6HRS 05/10/19 00:00 05/13/19 08:27 DC 05/13/19 05:50 3 UNITS Insulin Human Regular 150 unit/ Sodium Chloride 151.5 ml @ 0 mls/hr CONT PRN 05/08/19 23:00 05/12/19 13:06 DC 05/08/19 23:03 5 MLS/HR Iohexol (Omnipaque 240 Mg/ml) 30 ml 1X ONCE 05/14/19 08:45 05/14/19 08:48 DC 05/14/19 08:45 30 ML Iohexol (Omnipaque 300 Mg/ml) 60 ml 1X ONCE 05/14/19 08:45 05/14/19 08:48 DC 05/14/19 08:45 60 ML Iohexol (Omnipaque 350 Mg/ml) 90 ml 1X ONCE 05/08/19 17:30 05/08/19 17:31 DC 05/08/19 17:45 90 ML Ketamine HCl (Ketamine) 50 mg STK-MED ONCE 05/08/19 20:12 05/08/19 20:12 DC Lactobacillus Rhamnosus (Culturelle) 1 cap BID 05/12/19 21:00 05/14/19 09:13 1 CAP Lidocaine HCl (Buffered Lidocaine 1%) 3 ml 1X ONCE 05/14/19 13:00 05/14/19 13:02 DC 05/14/19 13:14 3 ML Lidocaine HCl (Lidocaine Pf 2% Vial) 5 ml STK-MED ONCE 05/08/19 19:34 05/08/19 19:34 DC Lisinopril (Prinivil) 10 mg DAILY 05/13/19 09:00 05/14/19 09:14 10 MG Metoclopramide HCl (Reglan Vial) 10 mg 1X ONCE 05/08/19 17:00 05/08/19 17:01 DC 05/08/19 16:51 10 MG Metronidazole 100 ml @ 100 mls/hr Q8HRS 05/14/19 14:00 Micafungin Sodium 100 mg/Dextrose 100 ml @ 100 mls/hr Q24H 05/14/19 11:00 05/14/19 12:05 100 MLS/HR Multi-Ingredient Ointment (Analgesic Kennett) 1 jazlyn PRN QID PRN 05/11/19 11:30 Neostigmine Methylsulfate (Neostigmine Methylsulfate) 5 mg STK-MED ONCE 05/08/19 21:27 05/08/19 21:27 DC Norepinephrine Bitartrate 250 ml @ 19.688 mls/ hr CONT PRN 05/09/19 12:45 Cancel Ondansetron HCl (Zofran) 4 mg PRN Q6HRS PRN 05/13/19 08:30 UNV Pantoprazole Sodium (PROTONIX VIAL for IV PUSH) 40 mg DAILY 05/09/19 09:00 05/12/19 08:30 DC 05/11/19 09:43 40 MG Pantoprazole Sodium (Protonix) 40 mg DAILYAC 05/12/19 09:00 05/14/19 06:04 40 MG Phenol (Chloraseptic) 1 spray PRN Q2HR PRN 05/11/19 11:30 05/11/19 13:12 1 SPRAY Phenylephrine HCl (PHENYLEPHRINE in 0.9% NACL PF) 1 mg STK-MED ONCE 05/08/19 20:33 05/08/19 20:33 DC Piperacillin Sod/ Tazobactam Sod 3.375 gm/Sodium Chloride 50 ml @ 100 mls/hr Q6HRS 05/09/19 00:00 05/14/19 10:28 DC 05/14/19 05:49 100 MLS/HR Primidone (Mysoline) 25 mg BID 05/12/19 14:30 05/14/19 09:14 25 MG Prochlorperazine Edisylate (Compazine) 5 mg PACU PRN PRN 05/08/19 19:45 05/08/19 23:59 DC Propofol 20 ml @ As Directed STK-MED ONCE 05/08/19 19:34 05/08/19 19:34 DC Ringer's Solution 1,000 ml @ 30 mls/hr Q24H 05/08/19 20:00 05/09/19 01:00 DC 05/08/19 23:06 30 MLS/HR Rocuronium [place] (Zemuron) 50 mg STK-MED ONCE 05/08/19 19:34 05/08/19 19:34 DC Sevoflurane (Ultane) 60 ml STK-MED ONCE 05/08/19 21:44 05/08/19 21:44 DC Simvastatin (Zocor) 10 mg QHS 05/12/19 21:00 05/13/19 21:13 10 MG Sodium Chloride 1,000 ml @ 60 mls/hr [id number] 05/09/19 15:30 05/12/19 10:57 DC 05/10/19 16:47 60 MLS/HR Succinylcholine Chloride (Anectine) 200 mg STK-MED ONCE 05/08/19 19:34 05/08/19 19:34 DC Tramadol HCl (Ultram) 50 mg PRN Q6HRS PRN 05/13/19 08:30 05/14/19 04:27 50 MG Venlafaxine HCl (Effexor Xr) 37.5 mg BID 05/13/19 09:00 05/13/19 08:33 DC Venlafaxine HCl (Effexor) 75 mg DAILY 05/12/19 13:30 05/12/19 14:20 DC 05/12/19 13:34 75 MG Lab Laboratory Tests Test 05/14/19 08:55 05/14/19 11:54 White Blood Count 12.6 x10^3/uL (4.0-11.0) Red Blood Count 3.45 x10^6/uL (4.30-5.70) Hemoglobin 10.8 g/dL (13.0-17.5) Hematocrit 33.0 % (39.0-53.0) Mean Corpuscular Volume 96 fL (79-100) Mean Corpuscular Hemoglobin 31 pg (25-35) Mean Corpuscular Hemoglobin Concent 33 g/dL (31-37) Red Cell Distribution Width 14.1 % (11.5-14.5) Platelet Count 304 x10^3/uL (140-400) Neutrophils (%) (Auto) 87 % (31-73) Lymphocytes (%) (Auto) 6 % (24-48) Monocytes (%) (Auto) 6 % (0-9) Eosinophils (%) (Auto) 0 % (0-3) Basophils (%) (Auto) 0 % (0-3) Neutrophils # (Auto) 11.0 x10^3/uL (1.8-7.7) Lymphocytes # (Auto) 0.8 x10^3/uL (1.0-4.8) Monocytes # (Auto) 0.7 x10^3/uL (0.0-1.1) Eosinophils # (Auto) 0.0 x10^3/uL (0.0-0.7) Basophils # (Auto) 0.0 x10^3/uL (0.0-0.2) Sodium Level 138 mmol/L (136-145) Potassium Level 4.2 mmol/L (3.5-5.1) Chloride Level 101 mmol/L (98-107) Carbon Dioxide Level 23 mmol/L (21-32) Anion Gap 14 (6-14) Blood Urea Nitrogen 23 mg/dL (8-26) Creatinine 1.4 mg/dL (0.7-1.3) Estimated GFR (Cockcroft-Gault) 49.7 BUN/Creatinine Ratio 16 (6-20) Glucose Level 228 mg/dL (70-99) Calcium Level 8.7 mg/dL (8.5-10.1) Total Bilirubin 0.7 mg/dL (0.2-1.0) Aspartate Amino Transf (AST/SGOT) 53 U/L (15-37) Alanine Aminotransferase (ALT/SGPT) 65 U/L (16-63) Alkaline Phosphatase 101 U/L (46-116) Total Protein 6.4 g/dL (6.4-8.2) Albumin 2.2 g/dL (3.4-5.0) Albumin/Globulin Ratio 0.5 (1.0-1.7) Glucose (Fingerstick) 216 mg/dL (70-99) Results All relevant outside records, renal labs, imaging studies, telemetry/EKG's were reviewed. ANA BERRIOS MD May 14, 2019 13:26
[2019-05-14] MEDS: DAPTOmycin (GENERIC) IVPB 570 MG in IV NORMAL SALINE 50ML 50 ML IV SCH (14:00)
--- NOTE | 2019-05-14 14:47 | RAD ---
Procedure: Upper extremity PICC line placement Clinical Indication: 73-year-old requiring central venous access Sedation: Local anesthesia only was provided Antibiotics: None Fluoro Time: 0.2 minutes, images: 1 Contrast: None Sterility: All elements of maximal sterile barrier technique including the use of a cap, mask, sterile gown, sterile gloves, large sterile sheet, appropriate hand hygiene, and 2% chlorhexidine for cutaneous antisepsis (or acceptable alternative antiseptic per current guidelines) were followed for this procedure. Consent: The procedure was explained in its entirety to the patient or the patients designated medical collections representative by a member of the treatment team, including a discussion of the risks, benefits and commonly accepted alternatives to the procedure, as well as the expected consequences of no therapy whatsoever. Discussion of the risks included, but was not limited to, those that are most frequent and those that are rare but possibly severe or life-threatening, as well as the possibility of unforeseen complications. Technique and Findings: Following informed consent, the patient was prepped and draped in the usual sterile fashion. Ultrasound interrogation of the left arm revealed patency and compressibility of the left basilic vein. A hard copy ultrasound image was recorded. 1% Lidocaine was used to achieve local anesthesia and a 21-gauge micropuncture needle was used to gain access to the targeted vein. The needle was exchanged over wire for a 5 Croatian peel-away sheath which was used to deploy a PICC line under fluoroscopic guidance such that the distal tip resided at the cavoatrial junction. The catheter flushed and aspirated with ease and was sutured to the skin. Complications: No immediate Impression: 1. Ultrasound guided PICC line placement as described.
[2019-05-14 15:00] VITALS: BP 119/63
--- NOTE | 2019-05-14 15:25 | RAD ---
KUB Clinical Indication: Verify NG placement. Comparison: CT abdomen and pelvis without contrast, earlier same day. Findings: Tip of enteric tube is in the proximal stomach. Right upper abdomen surgical drain. There are several dilated small bowel loops in the central lower abdomen, may be ileus in this postsurgical patient. Scattered air in colon. Right renal calculus redemonstrated. Contrast is seen in the pelvis. This may be dependent oral contrast that leaked into peritoneal cavity on recent CT. Bones appear stable. IMPRESSION: Enteric tube tip is in the proximal stomach. Electronically signed by: Yadiel Coulter MD (05/14/2019 3:22 PM) [id number]
[2019-05-14] MEDS: AMINO AC 3%/ELECTROLYTE/GLYCER 1,000 ML IV SCH (16:22)
[2019-05-14 19:00] VITALS: BP 129/59
[2019-05-14] MEDS: SIMVASTATIN 10 MG TABLET PO SCH (21:08)
[2019-05-14] MEDS: INSULIN GLARGINE SYRINGE. SQ SCH (21:19)
[2019-05-14 23:00] VITALS: BP 122/62
[2019-05-15] VITALS (20 sets, daily range): BP systolic 88–143; BP diastolic 38–79
[2019-05-15 04:27] LABS: BASO # 0.1 x10^3/uL (0.0-0.2); BASO % 0 % (0-3); EOS % 0 % (0-3); HEMATOCRIT 32.4 % (39.0-53.0); HEMOGLOBIN 10.5 g/dL (13.0-17.5); LYMPH # 1.1 x10^3/uL (1.0-4.8); LYMPH % 5 % (24-48); MEAN CORPUSCULAR HEMOGLOBIN 31 pg (25-35); MEAN CORPUSCULAR HGB CONC 32 g/dL (31-37); MEAN CORPUSCULAR VOLUME 95 fL (79-100); MONO # 1.1 x10^3/uL (0.0-1.1); MONO % 5 % (0-9); NEUT # 18.9 x10^3/uL (1.8-7.7); NEUT % 89 % (31-73); PLATELET COUNT 333 x10^3/uL (140-400); RED BLOOD COUNT 3.41 x10^6/uL (4.30-5.70); RED CELL DISTRIBUTION WIDTH 14.1 % (11.5-14.5); WHITE BLOOD COUNT 21.1 x10^3/uL (4.0-11.0)
[2019-05-15 04:50] LABS: ALBUMIN/GLOBULIN RATIO 0.5 (1.0-1.7); CALCIUM 8.6 mg/dL (8.5-10.1); CREATININE 1.6 mg/dL (0.7-1.3); GFR 42.6; POTASSIUM 3.9 mmol/L (3.5-5.1); TOTAL BILIRUBIN 0.5 mg/dL (0.2-1.0); TOTAL PROTEIN 6.1 g/dL (6.4-8.2)
[2019-05-15 04:53] LABS: PHOSPHORUS 3.5 mg/dL (2.6-4.7)
[2019-05-15] MEDS: CEFEPIME HCL IV Push 2 GM VIAL. IVP SCH ×3 (05:59→21:35)
[2019-05-15] MEDS: AMINO AC 3%/ELECTROLYTE/GLYCER 1,000 ML IV SCH ×2 (05:59→16:00)
[2019-05-15] MEDS: HYDROmorphone 2 MG/ML VIAL IV PRN ×2 (06:08→20:34)
[2019-05-15 06:36] LABS: % BANDS 3 % (0-9); % LYMPHS 8 % (24-48); % MONOS 6 % (0-10); % SEGS 83 % (35-66); PLT ESTIMATE ADEQUATE (ADEQUATE)
[2019-05-15] MEDS: IPRATRPIUM/ALBUTEROL 0.5/2.5MG 3 ML NEBU. NEB SCH ×4 (07:14→19:19)
[2019-05-15] MEDS: BUDESONIDE 0.5 MG/2 ML NEBU. NEB SCH ×2 (07:14→19:19)
[2019-05-15] MEDS: PANTOPRAZOLE 40 MG TABLET.DR. PO SCH (07:30)
--- NOTE | 2019-05-15 07:44 | PDOC ---
Infectious Disease Note Subjective Subjective Abd pain better with NGT nausea this am but hungry Increased drainage into MACKENZIE drain continues Cough is less No F/C/S/V/D/SOA/Rash ROS ROS o/w neg Vital Sign Vital Signs Vital Signs Date Time Temp Pulse Resp B/P (MAP) Pulse Ox O2 Delivery O2 Flow Rate FiO2 05/15/19 07:14 92 Room Air 05/15/19 06:08 2.0 05/15/19 03:00 98.0 97 18 135/62 (86) 98.0 Physical Exam PHYSICAL EXAM GENERAL: Laying in bed, alert, NAD HEENT: Pupils equally round. Oropharynx is clear. NGT NECK: Supple. LUNGS: Clear to auscultation. HEART: S1, S2 regular. ABDOMEN: Obese, soft, mild distension. mild tender with hypoactive bowel sounds. Surgical dressings are dry and MACKENZIE drain intact- with increased output EXTREMITIES: No gross edema or cyanosis. SCDs in place. Right shoulder incision well-approx stable, clean. SKIN: Warm to touch. No signs of rash. NEUROLOGIC: Alert and oriented x3. Labs Lab Laboratory Tests Test 05/14/19 08:55 05/14/19 11:54 05/15/19 03:30 05/15/19 03:35 White Blood Count 12.6 x10^3/uL (4.0-11.0) 21.1 x10^3/uL (4.0-11.0) Red Blood Count 3.45 x10^6/uL (4.30-5.70) 3.41 x10^6/uL (4.30-5.70) Hemoglobin 10.8 g/dL (13.0-17.5) 10.5 g/dL (13.0-17.5) Hematocrit 33.0 % (39.0-53.0) 32.4 % (39.0-53.0) Mean Corpuscular Volume 96 fL (79-100) 95 fL (79-100) Mean Corpuscular Hemoglobin 31 pg (25-35) 31 pg (25-35) Mean Corpuscular Hemoglobin Concent 33 g/dL (31-37) 32 g/dL (31-37) Red Cell Distribution Width 14.1 % (11.5-14.5) 14.1 % (11.5-14.5) Platelet Count 304 x10^3/uL (140-400) 333 x10^3/uL (140-400) Neutrophils (%) (Auto) 87 % (31-73) 89 % (31-73) Lymphocytes (%) (Auto) 6 % (24-48) 5 % (24-48) Monocytes (%) (Auto) 6 % (0-9) 5 % (0-9) Eosinophils (%) (Auto) 0 % (0-3) 0 % (0-3) Basophils (%) (Auto) 0 % (0-3) 0 % (0-3) Neutrophils # (Auto) 11.0 x10^3/uL (1.8-7.7) 18.9 x10^3/uL (1.8-7.7) Lymphocytes # (Auto) 0.8 x10^3/uL (1.0-4.8) 1.1 x10^3/uL (1.0-4.8) Monocytes # (Auto) 0.7 x10^3/uL (0.0-1.1) 1.1 x10^3/uL (0.0-1.1) Eosinophils # (Auto) 0.0 x10^3/uL (0.0-0.7) 0.0 x10^3/uL (0.0-0.7) Basophils # (Auto) 0.0 x10^3/uL (0.0-0.2) 0.1 x10^3/uL (0.0-0.2) Sodium Level 138 mmol/L (136-145) 137 mmol/L (136-145) Potassium Level 4.2 mmol/L (3.5-5.1) 3.9 mmol/L (3.5-5.1) Chloride Level 101 mmol/L (98-107) 102 mmol/L (98-107) Carbon Dioxide Level 23 mmol/L (21-32) 22 mmol/L (21-32) Anion Gap 14 (6-14) 13 (6-14) Blood Urea Nitrogen 23 mg/dL (8-26) 35 mg/dL (8-26) Creatinine 1.4 mg/dL (0.7-1.3) 1.6 mg/dL (0.7-1.3) Estimated GFR (Cockcroft-Gault) 49.7 42.6 BUN/Creatinine Ratio 16 (6-20) 22 (6-20) Glucose Level 228 mg/dL (70-99) 280 mg/dL (70-99) Calcium Level 8.7 mg/dL (8.5-10.1) 8.6 mg/dL (8.5-10.1) Total Bilirubin 0.7 mg/dL (0.2-1.0) 0.5 mg/dL (0.2-1.0) Aspartate Amino Transf (AST/SGOT) 53 U/L (15-37) 29 U/L (15-37) Alanine Aminotransferase (ALT/SGPT) 65 U/L (16-63) 47 U/L (16-63) Alkaline Phosphatase 101 U/L (46-116) 100 U/L (46-116) Creatine Kinase 238 U/L (39-308) Total Protein 6.4 g/dL (6.4-8.2) 6.1 g/dL (6.4-8.2) Albumin 2.2 g/dL (3.4-5.0) 2.0 g/dL (3.4-5.0) Albumin/Globulin Ratio 0.5 (1.0-1.7) 0.5 (1.0-1.7) Glucose (Fingerstick) 216 mg/dL (70-99) Phosphorus Level 3.5 mg/dL (2.6-4.7) Magnesium Level 2.0 mg/dL (1.8-2.4) Triglycerides Level 225 mg/dL (0-150) Segmented Neutrophils % 83 % (35-66) Band Neutrophils % 3 % (0-9) Lymphocytes % 8 % (24-48) Monocytes % 6 % (0-10) Platelet Estimate Adequate (ADEQUATE) Test 05/15/19 06:01 Glucose (Fingerstick) 250 mg/dL (70-99) Micro CT Impression: 05/14 1. Extravasation of oral contrast within the right upper quadrant extending from the first portion of the duodenum, concerning for persistent duodenal perforation. Scattered pneumoperitoneum. 2. Increased loculated fluid within the right mid abdomen adjacent to small bowel loops with wall thickening. 3. Increased mesenteric edema and body wall edema. 4. Small right pleural effusion with adjacent atelectasis. 5. Tiny focus of gas within the urinary bladder, likely related to recent instrumentation. Objective Assessment Perforated duodenal ulcer s/p repair, 05/08 no apparent cultures Fever - better Pancytopenia - improved - now increasing leukocytosis Abx allergy: Sulfa and cipro w/ rash Acute respiratory failure, now on venti mask -s/p Bronchoscopy with BAL, 05/09. mucous plugging, culture pending GREGG -some alvina Nonobstructing calculus of the right kidney. Recent right shoulder joint replacement, 05/06 at [facility] Plan of Care Discontinued Zosyn and fluconazole 05/14 Cont Dapto/Cefepime/Flagyl/Micafungin with leukocytosis 05/14 D/w Dr. Hickman who is consulting IR for possible drain placement - will check cults f/u cultures/labs in am D/w nursing YULIANA ONEAL MD May 15, 2019 07:43
[2019-05-15] MEDS: LACTOBACILLUS RHAMNOSUS GG 1 CAPSULE. PO SCH ×2 (08:04→21:00)
[2019-05-15] MEDS: PRIMIDONE 50 MG TABLET PO SCH ×2 (08:05→21:00)
[2019-05-15] MEDS: VENLAFAXINE XR 37.5 MG CAP.ER.24H. PO SCH (08:05)
[2019-05-15] MEDS: LISINOPRIL 10 MG TABLET PO SCH (08:05)
--- NOTE | 2019-05-15 08:06 | PDOC ---
SURGICAL PROGRESS NOTE Subjective Patient resting comfortably in bed and denies any abdominal pain. Vital Signs Vital Signs Date Time Temp Pulse Resp B/P (MAP) Pulse Ox O2 Delivery O2 Flow Rate FiO2 05/15/19 07:49 92 Room Air 2.0 05/15/19 03:00 98.0 97 18 135/62 (86) 98.0 I&O Intake and Output 05/15/19 07:00 Output Total 2525 ml Balance -2525 ml Output Urine Total 725 ml Gastric Drainage Total 300 ml Drainage Total 1500 ml PATIENT HAS A FENTON: No General: Alert, Oriented X3, Cooperative, mild distress Abdomen: Soft (October active bowel sounds wounds clean dry and intact MACKENZIE drain intact with bilious output 180 mL overnight), No tenderness Labs Laboratory Tests Test 05/13/19 12:02 05/14/19 08:55 05/14/19 11:54 05/15/19 03:30 Glucose (Fingerstick) 161 mg/dL (70-99) 216 mg/dL (70-99) White Blood Count 12.6 x10^3/uL (4.0-11.0) Red Blood Count 3.45 x10^6/uL (4.30-5.70) Hemoglobin 10.8 g/dL (13.0-17.5) Hematocrit 33.0 % (39.0-53.0) Mean Corpuscular Volume 96 fL (79-100) Mean Corpuscular Hemoglobin 31 pg (25-35) Mean Corpuscular Hemoglobin Concent 33 g/dL (31-37) Red Cell Distribution Width 14.1 % (11.5-14.5) Platelet Count 304 x10^3/uL (140-400) Neutrophils (%) (Auto) 87 % (31-73) Lymphocytes (%) (Auto) 6 % (24-48) Monocytes (%) (Auto) 6 % (0-9) Eosinophils (%) (Auto) 0 % (0-3) Basophils (%) (Auto) 0 % (0-3) Neutrophils # (Auto) 11.0 x10^3/uL (1.8-7.7) Lymphocytes # (Auto) 0.8 x10^3/uL (1.0-4.8) Monocytes # (Auto) 0.7 x10^3/uL (0.0-1.1) Eosinophils # (Auto) 0.0 x10^3/uL (0.0-0.7) Basophils # (Auto) 0.0 x10^3/uL (0.0-0.2) Sodium Level 138 mmol/L (136-145) 137 mmol/L (136-145) Potassium Level 4.2 mmol/L (3.5-5.1) 3.9 mmol/L (3.5-5.1) Chloride Level 101 mmol/L (98-107) 102 mmol/L (98-107) Carbon Dioxide Level 23 mmol/L (21-32) 22 mmol/L (21-32) Anion Gap 14 (6-14) 13 (6-14) Blood Urea Nitrogen 23 mg/dL (8-26) 35 mg/dL (8-26) Creatinine 1.4 mg/dL (0.7-1.3) 1.6 mg/dL (0.7-1.3) Estimated GFR (Cockcroft-Gault) 49.7 42.6 BUN/Creatinine Ratio 16 (6-20) 22 (6-20) Glucose Level 228 mg/dL (70-99) 280 mg/dL (70-99) Calcium Level 8.7 mg/dL (8.5-10.1) 8.6 mg/dL (8.5-10.1) Total Bilirubin 0.7 mg/dL (0.2-1.0) 0.5 mg/dL (0.2-1.0) Aspartate Amino Transf (AST/SGOT) 53 U/L (15-37) 29 U/L (15-37) Alanine Aminotransferase (ALT/SGPT) 65 U/L (16-63) 47 U/L (16-63) Alkaline Phosphatase 101 U/L (46-116) 100 U/L (46-116) Creatine Kinase 238 U/L (39-308) Total Protein 6.4 g/dL (6.4-8.2) 6.1 g/dL (6.4-8.2) Albumin 2.2 g/dL (3.4-5.0) 2.0 g/dL (3.4-5.0) Albumin/Globulin Ratio 0.5 (1.0-1.7) 0.5 (1.0-1.7) Phosphorus Level 3.5 mg/dL (2.6-4.7) Magnesium Level 2.0 mg/dL (1.8-2.4) Triglycerides Level 225 mg/dL (0-150) Test 05/15/19 03:35 05/15/19 06:01 White Blood Count 21.1 x10^3/uL (4.0-11.0) Red Blood Count 3.41 x10^6/uL (4.30-5.70) Hemoglobin 10.5 g/dL (13.0-17.5) Hematocrit 32.4 % (39.0-53.0) Mean Corpuscular Volume 95 fL (79-100) Mean Corpuscular Hemoglobin 31 pg (25-35) Mean Corpuscular Hemoglobin Concent 32 g/dL (31-37) Red Cell Distribution Width 14.1 % (11.5-14.5) Platelet Count 333 x10^3/uL (140-400) Neutrophils (%) (Auto) 89 % (31-73) Lymphocytes (%) (Auto) 5 % (24-48) Monocytes (%) (Auto) 5 % (0-9) Eosinophils (%) (Auto) 0 % (0-3) Basophils (%) (Auto) 0 % (0-3) Neutrophils # (Auto) 18.9 x10^3/uL (1.8-7.7) Lymphocytes # (Auto) 1.1 x10^3/uL (1.0-4.8) Monocytes # (Auto) 1.1 x10^3/uL (0.0-1.1) Eosinophils # (Auto) 0.0 x10^3/uL (0.0-0.7) Basophils # (Auto) 0.1 x10^3/uL (0.0-0.2) Segmented Neutrophils % 83 % (35-66) Band Neutrophils % 3 % (0-9) Lymphocytes % 8 % (24-48) Monocytes % 6 % (0-10) Platelet Estimate Adequate (ADEQUATE) Glucose (Fingerstick) 250 mg/dL (70-99) Laboratory Tests Test 05/14/19 08:55 05/14/19 11:54 05/15/19 03:30 05/15/19 03:35 White Blood Count 12.6 x10^3/uL (4.0-11.0) 21.1 x10^3/uL (4.0-11.0) Red Blood Count 3.45 x10^6/uL (4.30-5.70) 3.41 x10^6/uL (4.30-5.70) Hemoglobin 10.8 g/dL (13.0-17.5) 10.5 g/dL (13.0-17.5) Hematocrit 33.0 % (39.0-53.0) 32.4 % (39.0-53.0) Mean Corpuscular Volume 96 fL (79-100) 95 fL (79-100) Mean Corpuscular Hemoglobin 31 pg (25-35) 31 pg (25-35) Mean Corpuscular Hemoglobin Concent 33 g/dL (31-37) 32 g/dL (31-37) Red Cell Distribution Width 14.1 % (11.5-14.5) 14.1 % (11.5-14.5) Platelet Count 304 x10^3/uL (140-400) 333 x10^3/uL (140-400) Neutrophils (%) (Auto) 87 % (31-73) 89 % (31-73) Lymphocytes (%) (Auto) 6 % (24-48) 5 % (24-48) Monocytes (%) (Auto) 6 % (0-9) 5 % (0-9) Eosinophils (%) (Auto) 0 % (0-3) 0 % (0-3) Basophils (%) (Auto) 0 % (0-3) 0 % (0-3) Neutrophils # (Auto) 11.0 x10^3/uL (1.8-7.7) 18.9 x10^3/uL (1.8-7.7) Lymphocytes # (Auto) 0.8 x10^3/uL (1.0-4.8) 1.1 x10^3/uL (1.0-4.8) Monocytes # (Auto) 0.7 x10^3/uL (0.0-1.1) 1.1 x10^3/uL (0.0-1.1) Eosinophils # (Auto) 0.0 x10^3/uL (0.0-0.7) 0.0 x10^3/uL (0.0-0.7) Basophils # (Auto) 0.0 x10^3/uL (0.0-0.2) 0.1 x10^3/uL (0.0-0.2) Sodium Level 138 mmol/L (136-145) 137 mmol/L (136-145) Potassium Level 4.2 mmol/L (3.5-5.1) 3.9 mmol/L (3.5-5.1) Chloride Level 101 mmol/L (98-107) 102 mmol/L (98-107) Carbon Dioxide Level 23 mmol/L (21-32) 22 mmol/L (21-32) Anion Gap 14 (6-14) 13 (6-14) Blood Urea Nitrogen 23 mg/dL (8-26) 35 mg/dL (8-26) Creatinine 1.4 mg/dL (0.7-1.3) 1.6 mg/dL (0.7-1.3) Estimated GFR (Cockcroft-Gault) 49.7 42.6 BUN/Creatinine Ratio 16 (6-20) 22 (6-20) Glucose Level 228 mg/dL (70-99) 280 mg/dL (70-99) Calcium Level 8.7 mg/dL (8.5-10.1) 8.6 mg/dL (8.5-10.1) Total Bilirubin 0.7 mg/dL (0.2-1.0) 0.5 mg/dL (0.2-1.0) Aspartate Amino Transf (AST/SGOT) 53 U/L (15-37) 29 U/L (15-37) Alanine Aminotransferase (ALT/SGPT) 65 U/L (16-63) 47 U/L (16-63) Alkaline Phosphatase 101 U/L (46-116) 100 U/L (46-116) Creatine Kinase 238 U/L (39-308) Total Protein 6.4 g/dL (6.4-8.2) 6.1 g/dL (6.4-8.2) Albumin 2.2 g/dL (3.4-5.0) 2.0 g/dL (3.4-5.0) Albumin/Globulin Ratio 0.5 (1.0-1.7) 0.5 (1.0-1.7) Glucose (Fingerstick) 216 mg/dL (70-99) Phosphorus Level 3.5 mg/dL (2.6-4.7) Magnesium Level 2.0 mg/dL (1.8-2.4) Triglycerides Level 225 mg/dL (0-150) Segmented Neutrophils % 83 % (35-66) Band Neutrophils % 3 % (0-9) Lymphocytes % 8 % (24-48) Monocytes % 6 % (0-10) Platelet Estimate Adequate (ADEQUATE) Test 05/15/19 06:01 Glucose (Fingerstick) 250 mg/dL (70-99) Problem List Problems Medical Problems: (1) Perforated intestine, nontraumatic Status: Acute Assessment/Plan Status post repair of perforated duodenal ulcer subsequent leak and repair. Drain in place, PICC line in place start TPN today. NG tube in place Elevated white count antibiotics per infectious disease will consult interventional radiology for evaluation of mid abdominal fluid collection for drainage This point will control drainage with MACKENZIE drain JAZMINE URIBE MD May 15, 2019 08:06
[2019-05-15] MEDS: HEPARIN for SUB-Q USE 5,000 UNIT/ML VIAL. SQ SCH ×2 (09:26→21:35)
--- NOTE | 2019-05-15 10:24 | PDOC ---
SUBJECTIVE ROS c/o mild abd pain/nausea not feeling very good Increased drainage into MACKENZIE drain OBJECTIVE Vital Signs Vital Signs Date Time Temp Pulse Resp B/P (MAP) Pulse Ox O2 Delivery O2 Flow Rate FiO2 05/15/19 08:05 97 135/62 05/15/19 07:49 92 Room Air 2.0 05/15/19 07:00 97.9 18 97.9 I & 0 Intake and Output 05/15/19 07:00 Output Total 2525 ml Balance -2525 ml Output Urine Total 725 ml Gastric Drainage Total 300 ml Drainage Total 1500 ml PHYSICAL EXAM Physical Exam General:NAD HEENT: OM moist, Neck supple Lungs: Clear to auscultation Heart: Regular rate, Abdomen: Soft , has MACKENZIE drain Extremities: No edema, Skin: No significant lesion, No rash Neuro: grossly normal - No alcantara DIAGNOSIS/ASSESSMENT Assessment & Plan GREGG - ATN 2/2 to Perf Dudod ulcer/Hypotension /IV Contrast with CTA Non Oliguric , NSAID use for shoulder surgery recently (Meloxicam per home med list ) and ASA Initially Cr peaked at 3.1 , improving slowly -->1.5 -->1.4 , mildly worse again Increased MACKENZIE Drainage , Recd IV contrast with CT on 05/14, monitor for YANIV , Supportive care, strict I/O, monitor, on Procalamine - will be switched to tpn Perforated duodenal ulcer with free air peritonitis- s/p diagnostic laparoscopy with open laparotomy and closure of duodenal ulcer and Dawood patch Increased drained in MACKENZIE HTN- on antihypertensives Has been restarted back on Lisinopril DM - Per Primary Nephrolithiasis- gives Hx of passing stone few years back CT scan shows Kidney stone, Non obstructing Panyctopenia- wbc Normal, Plat and Hgb low now increasing leukocytosis Anemia - Hgb stable Acute respiratory failure, now on venti mask -s/p Bronchoscopy with BAL, 05/09. mucous plugging, culture pending Recent right shoulder joint replacement, 05/06 at [facility] COMMENT/RELEVANT DATA Meds Current Medications Medications (Trade) Dose Ordered Sig/Ventura Start Time Stop Time Status Last Admin Dose Admin Acetaminophen (Tylenol) 500 mg PRN Q6HRS PRN 05/13/19 08:30 Albumin Human 500 ml @ 250 mls/hr 1X ONCE 05/09/19 00:30 05/09/19 02:29 DC 05/09/19 00:10 250 MLS/HR Albuterol/ Ipratropium (Duoneb) 3 ml RTQID 05/10/19 08:00 05/15/19 07:14 3 ML Amino Acids/ Glycerin/ Electrolytes 1,000 ml @ 80 mls/hr [id number] 05/11/19 12:00 05/15/19 05:59 80 MLS/HR Budesonide (Pulmicort) 0.5 mg RTBID 05/10/19 08:00 05/15/19 07:14 0.5 MG Bupivacaine HCl (Sensorcaine Mpf 0.5%) 30 ml STK-MED ONCE 05/08/19 21:39 05/08/19 21:39 DC Bupivacaine HCl/ Epinephrine Bitart (Sensorcaine-Epi 0.25%-1:[id number] Mpf) 30 ml 1X ONCE 05/08/19 20:00 05/08/19 20:01 DC 05/08/19 20:32 26 ML Carbidopa/Levodopa (Sinemet 25/100) 1 tab TID 05/12/19 14:00 05/12/19 13:40 DC Cefepime HCl (Maxipime) 2 gm Q8HRS 05/14/19 12:00 05/15/19 05:59 2 GM Clonidine HCl (Catapres) 0.1 mg PRN Q1HR PRN 05/13/19 08:30 Daptomycin 570 mg/ Sodium Chloride 50 ml @ 100 mls/hr Q24H 05/14/19 11:30 05/14/19 14:00 100 MLS/HR Dexamethasone Sodium Phosphate (Decadron) 4 mg STK-MED ONCE 05/08/19 19:34 05/08/19 19:34 DC Dextrose (Dextrose 50%-Water Syringe) 12.5 gm PRN Q15MIN PRN 05/09/19 15:30 UNV Dextrose/Sodium Chloride 1,000 ml @ 150 mls/hr Q6H40M 05/09/19 08:45 05/09/19 18:30 DC 05/09/19 12:28 150 MLS/HR Diphenhydramine HCl (Benadryl) 25 mg 1X ONCE 05/08/19 17:00 05/08/19 17:01 DC 05/08/19 16:51 25 MG Dobutamine HCl/ Dextrose 250 ml @ 15.75 mls/ hr CONT PRN 05/09/19 12:45 05/12/19 13:06 DC Ephedrine Sulfate (ePHEDrine PF IN SALINE SYRINGE) 50 mg STK-MED ONCE 05/08/19 20:36 05/08/19 20:36 DC Epinephrine HCl (Adrenalin) 1 mg STK-MED ONCE 05/08/19 21:39 05/08/19 21:39 DC Fentanyl Citrate (Fentanyl 2ml Vial) 50 mcg PRN Q5MIN PRN 05/08/19 19:45 05/08/19 23:59 DC Fluconazole/ Sodium Chloride 100 ml @ 100 mls/hr Q24H 05/08/19 22:00 05/14/19 10:28 DC 05/13/19 21:14 100 MLS/HR Gabapentin (Neurontin) 300 mg PRN QHS PRN 05/12/19 17:45 05/12/19 20:53 300 MG Glycopyrrolate (Robinul) 1 mg STK-MED ONCE 05/08/19 21:27 05/08/19 21:27 DC Heparin Sodium (Porcine) (Heparin Sodium) 5,000 unit BID 05/11/19 10:00 05/15/19 09:26 5,000 UNIT Hydralazine HCl (Apresoline Inj) 10 mg PRN Q4HRS PRN 05/11/19 11:45 Hydromorphone HCl (Dilaudid) 1 mg PRN Q4HRS PRN 05/08/19 22:00 05/15/19 06:08 1 MG Info (CONTRAST GIVEN -- Rx MONITORING) 1 each PRN DAILY PRN 05/14/19 09:00 05/16/19 08:59 Info (Tpn Per Pharmacy) 1 each PRN DAILY PRN 05/14/19 16:00 Insulin Glargine (Lantus Syringe) 15 unit QHS 05/12/19 21:00 05/14/19 21:19 15 UNIT Insulin Human Lispro (HumaLOG VIAL for OP,RR ONLY) 0-10 units PRN Q1HR PRN 05/08/19 19:45 05/08/19 23:59 DC Insulin Human Lispro (HumaLOG) 0-7 UNITS Q6HRS 05/10/19 00:00 05/13/19 08:27 DC 05/13/19 05:50 3 UNITS Insulin Human Regular 150 unit/ Sodium Chloride 151.5 ml @ 0 mls/hr CONT PRN 05/08/19 23:00 05/12/19 13:06 DC 05/08/19 23:03 5 MLS/HR Iohexol (Omnipaque 240 Mg/ml) 30 ml 1X ONCE 05/14/19 08:45 05/14/19 08:48 DC 05/14/19 08:45 30 ML Iohexol (Omnipaque 300 Mg/ml) 60 ml 1X ONCE 05/14/19 08:45 05/14/19 08:48 DC 05/14/19 08:45 60 ML Iohexol (Omnipaque 350 Mg/ml) 90 ml 1X ONCE 05/08/19 17:30 05/08/19 17:31 DC 05/08/19 17:45 90 ML Ketamine HCl (Ketamine) 50 mg STK-MED ONCE 05/08/19 20:12 05/08/19 20:12 DC Lactobacillus Rhamnosus (Culturelle) 1 cap BID 05/12/19 21:00 05/14/19 21:08 1 CAP Lidocaine HCl (Buffered Lidocaine 1%) 3 ml 1X ONCE 05/14/19 13:00 05/14/19 13:02 DC 05/14/19 13:14 3 ML Lidocaine HCl (Lidocaine Pf 2% Vial) 5 ml STK-MED ONCE 05/08/19 19:34 05/08/19 19:34 DC Lisinopril (Prinivil) 10 mg DAILY 05/13/19 09:00 05/14/19 09:14 10 MG Metoclopramide HCl (Reglan Vial) 10 mg 1X ONCE 05/08/19 17:00 05/08/19 17:01 DC 05/08/19 16:51 10 MG Metronidazole 100 ml @ 100 mls/hr Q8HRS 05/14/19 14:00 05/15/19 05:59 100 MLS/HR Micafungin Sodium 100 mg/Dextrose 100 ml @ 100 mls/hr Q24H 05/14/19 11:00 05/14/19 12:05 100 MLS/HR Multi-Ingredient Ointment (Analgesic [place]) 1 jazlyn PRN QID PRN 05/11/19 11:30 Neostigmine Methylsulfate (Neostigmine Methylsulfate) 5 mg STK-MED ONCE 05/08/19 21:27 05/08/19 21:27 DC Norepinephrine Bitartrate 250 ml @ 19.688 mls/ hr CONT PRN 05/09/19 12:45 Cancel Ondansetron HCl (Zofran) 4 mg PRN Q6HRS PRN 05/13/19 08:30 UNV Pantoprazole Sodium (PROTONIX VIAL for IV PUSH) 40 mg DAILY 05/09/19 09:00 05/12/19 08:30 DC 05/11/19 09:43 40 MG Pantoprazole Sodium (Protonix) 40 mg DAILYAC 05/12/19 09:00 05/14/19 06:04 40 MG Phenol (Chloraseptic) 1 spray PRN Q2HR PRN 05/11/19 11:30 05/11/19 13:12 1 SPRAY Phenylephrine HCl (PHENYLEPHRINE in 0.9% NACL PF) 1 mg STK-MED ONCE 05/08/19 20:33 05/08/19 20:33 DC Piperacillin Sod/ Tazobactam Sod 3.375 gm/Sodium Chloride 50 ml @ 100 mls/hr Q6HRS 05/09/19 00:00 05/14/19 10:28 DC 05/14/19 05:49 100 MLS/HR Primidone (Mysoline) 25 mg BID 05/12/19 14:30 05/14/19 21:08 25 MG Prochlorperazine Edisylate (Compazine) 5 mg PACU PRN PRN 05/08/19 19:45 05/08/19 23:59 DC Propofol 20 ml @ As Directed STK-MED ONCE 05/08/19 19:34 05/08/19 19:34 DC Ringer's Solution 1,000 ml @ 30 mls/hr Q24H 05/08/19 20:00 05/09/19 01:00 DC 05/08/19 23:06 30 MLS/HR Rocuronium [place] (Zemuron) 50 mg STK-MED ONCE 05/08/19 19:34 05/08/19 19:34 DC Sevoflurane (Ultane) 60 ml STK-MED ONCE 05/08/19 21:44 05/08/19 21:44 DC Simvastatin (Zocor) 10 mg QHS 05/12/19 21:00 05/14/19 21:08 10 MG Sodium Chloride 1,000 ml @ 60 mls/hr [id number] 05/09/19 15:30 05/12/19 10:57 DC 05/10/19 16:47 60 MLS/HR Succinylcholine Chloride (Anectine) 200 mg STK-MED ONCE 05/08/19 19:34 05/08/19 19:34 DC Tramadol HCl (Ultram) 50 mg PRN Q6HRS PRN 05/13/19 08:30 05/14/19 04:27 50 MG Venlafaxine HCl (Effexor Xr) 37.5 mg BID 05/13/19 09:00 05/13/19 08:33 DC Venlafaxine HCl (Effexor) 75 mg DAILY 05/12/19 13:30 05/12/19 14:20 DC 05/12/19 13:34 75 MG Lab Laboratory Tests Test 05/14/19 11:54 05/15/19 03:30 05/15/19 03:35 05/15/19 06:01 Glucose (Fingerstick) 216 mg/dL (70-99) 250 mg/dL (70-99) Sodium Level 137 mmol/L (136-145) Potassium Level 3.9 mmol/L (3.5-5.1) Chloride Level 102 mmol/L (98-107) Carbon Dioxide Level 22 mmol/L (21-32) Anion Gap 13 (6-14) Blood Urea Nitrogen 35 mg/dL (8-26) Creatinine 1.6 mg/dL (0.7-1.3) Estimated GFR (Cockcroft-Gault) 42.6 BUN/Creatinine Ratio 22 (6-20) Glucose Level 280 mg/dL (70-99) Calcium Level 8.6 mg/dL (8.5-10.1) Phosphorus Level 3.5 mg/dL (2.6-4.7) Magnesium Level 2.0 mg/dL (1.8-2.4) Total Bilirubin 0.5 mg/dL (0.2-1.0) Aspartate Amino Transf (AST/SGOT) 29 U/L (15-37) Alanine Aminotransferase (ALT/SGPT) 47 U/L (16-63) Alkaline Phosphatase 100 U/L (46-116) Total Protein 6.1 g/dL (6.4-8.2) Albumin 2.0 g/dL (3.4-5.0) Albumin/Globulin Ratio 0.5 (1.0-1.7) Triglycerides Level 225 mg/dL (0-150) White Blood Count 21.1 x10^3/uL (4.0-11.0) Red Blood Count 3.41 x10^6/uL (4.30-5.70) Hemoglobin 10.5 g/dL (13.0-17.5) Hematocrit 32.4 % (39.0-53.0) Mean Corpuscular Volume 95 fL (79-100) Mean Corpuscular Hemoglobin 31 pg (25-35) Mean Corpuscular Hemoglobin Concent 32 g/dL (31-37) Red Cell Distribution Width 14.1 % (11.5-14.5) Platelet Count 333 x10^3/uL (140-400) Neutrophils (%) (Auto) 89 % (31-73) Lymphocytes (%) (Auto) 5 % (24-48) Monocytes (%) (Auto) 5 % (0-9) Eosinophils (%) (Auto) 0 % (0-3) Basophils (%) (Auto) 0 % (0-3) Neutrophils # (Auto) 18.9 x10^3/uL (1.8-7.7) Lymphocytes # (Auto) 1.1 x10^3/uL (1.0-4.8) Monocytes # (Auto) 1.1 x10^3/uL (0.0-1.1) Eosinophils # (Auto) 0.0 x10^3/uL (0.0-0.7) Basophils # (Auto) 0.1 x10^3/uL (0.0-0.2) Segmented Neutrophils % 83 % (35-66) Band Neutrophils % 3 % (0-9) Lymphocytes % 8 % (24-48) Monocytes % 6 % (0-10) Platelet Estimate Adequate (ADEQUATE) Results All relevant outside records, renal labs, imaging studies, telemetry/EKG's were reviewed. Other CT 05/14 1. Extravasation of oral contrast within the right upper quadrant extending from the first portion of the duodenum, concerning for persistent duodenal perforation. Scattered pneumoperitoneum. 2. Increased loculated fluid within the right mid abdomen adjacent to small bowel loops with wall thickening. 3. Increased mesenteric edema and body wall edema. 4. Small right pleural effusion with adjacent atelectasis. 5. Tiny focus of gas within the urinary bladder, likely related to recent instrumentation. ANA BERRIOS MD May 15, 2019 10:24
--- NOTE | 2019-05-15 10:31 | PDOC ---
PROGRESS NOTES Chief Complaint Chief Complaint IMPRESSION s/p perf viscus repair 05/09 05/14 CTExtravasation of oral contrast within the right upper quadrant extending from the first portion of the duodenum, concerning for persistent duodenal perforation. Scattered pneumoperitoneum. Increased loculated fluid within the right mid abdomen adjacent to small bowel loops with wall thickening. Increased mesenteric edema and body wall edema. SEVERE SEPSIS Begin Dapto/Cefepime/Flagyl/Micafungin with leukocytosis and increased MACKENZIE drainage despite abx CT today Severe protein-caloric malnutrition GREGG - likely vasomotor nephropathy Perforated duodenal ulcer - Diagnostic laparoscopy with open laparotomy and closure of duodenal ulcer and Dawood patch 05-09 Small amount of ascites is seen within the abdomen and pelvis HTN, Fair control Acute hypoxemic respiratory failure Acute exacerbation of chronic obstructive pulmonary disease. Tobacco dependence. Recent right shoulder repair Movement disorder NOS - parkinsonian symptoms - will restart meds HLD - restart statin DM 2 insulin req REcent RT shoulder sx (total arthroplasty at [facility]) MEt encepahlopathy sec to medical course Begin Dapto/Cefepime/Flagyl/Micafungin with leukocytosis and increased MACKENZIE drainage despite abx CT REVIEWED consult interventional radiology for evaluation of mid abdominal fluid collection for drainage CONT MACKENZIE drain Extravasation of oral contrast within the right upper quadrant extending from the first portion of the duodenum, concerning for persistent duodenal perforation. Scattered pneumoperitoneum. Contrast is seen in the pelvis. This may be dependent oral contrast that leaked into peritoneal cavity on recent CT 05-15 hypotensive earlier PLAN TRANSFER TO icu, CONSULT CARDIOLOGY, EKG, ECHO, TROPONIN I History of Present Illness History of Present Illness on liq diet and eating fair only On procalamine t.o icu after repair of perf DU - s.p pressor? INsulin regimen at home is 35 qhs and 15 breakfast and lunch, and 20 units dinner fast acting Metformin hold as creat 1,5 (better than admission, has stabilized) Still some intermittent confusion PLAN: ir consult consult cardiology SSI shift to ACHS and high dose DIet per GS agreeable to SNU and SW is following IV abx still per ID WIll dc once shifted to PO abx, PO intake has picked up and cleared by GS FULL CODE RT shoulder repair c.o [facility] - ff up with their ortho 40 MIN PT EXAM, cc time CHART REVIEW, > 50% OF TIME SPENT WITH EXAM, CHART REVIEW, PT CARE COORDINATION Vitals Vitals Vital Signs Date Time Temp Pulse Resp B/P (MAP) Pulse Ox O2 Delivery O2 Flow Rate FiO2 05/15/19 08:05 97 135/62 05/15/19 07:49 92 Room Air 2.0 05/15/19 07:00 97.9 18 97.9 Physical Exam Physical Exam GENERAL: Laying in bed, alert, NAD HEENT: Pupils equally round. Oropharynx is clear. NGT NECK: Supple. LUNGS: Clear to auscultation. HEART: S1, S2 regular. ABDOMEN: Obese, soft, mild distension. mild tender with hypoactive bowel sounds. Surgical dressings are dry and MACKENZIE drain intact- with increased output EXTREMITIES: No gross edema or cyanosis. SCDs in place. Right shoulder incision well-approx stable, clean. SKIN: Warm to touch. No signs of rash. NEUROLOGIC: Alert and oriented x3. General: Alert, Oriented X3, Cooperative, mild distress Heart: Regular rate, Normal S1, Normal S2, No murmurs, Gallops Lungs: Clear, Other (deminished bs) Abdomen: Soft (Lissy active bowel sounds wounds clean dry and intact MACKENZIE drain intact with bilious output 180 mL overnight), No tenderness Extremities: No clubbing, No cyanosis, No edema, Normal pulses, No tenderness/swelling Skin: No significant lesion Labs LABS KUB Clinical Indication: Verify NG placement. Comparison: CT abdomen and pelvis without contrast, earlier same day. Findings: Tip of enteric tube is in the proximal stomach. Right upper abdomen surgical drain. There are several dilated small bowel loops in the central lower abdomen, may be ileus in this postsurgical patient. Scattered air in colon. Right renal calculus redemonstrated. Contrast is seen in the pelvis. This may be dependent oral contrast that leaked into peritoneal cavity on recent CT. Bones appear stable. IMPRESSION: Enteric tube tip is in the proximal stomach. Electronically signed by: Jarett Diaz MD (05/14/2019 3:22 PM) [id number] DICTATED and SIGNED BY: JARETT DIAZ MD DATE: 05/14/[address] ABD PELV W/ORAL IV CONTRAST History: Status post duodenal repair. Pain. Bilious drain drainage. Technique: After the administration of oral and intravenous contrast, CT imaging was performed of the abdomen and pelvis. Multiplanar images are reviewed. Contrast: 60 mL Omnipaque 300 IV contrast. Exposure: One or more of the following individualized dose reduction techniques were utilized for this examination: 1. Automated exposure control 2. Adjustment of the mA and/or kV according to patient size 3. Use of iterative reconstruction technique. Comparison: May 08, 2019 Findings: Lower chest: Small right pleural effusion with adjacent atelectasis. Left lower lobe subsegmental atelectasis. Abdomen and pelvis: There is oral contrast extravasation within the gallbladder fossa and right upper quadrant extending from the first portion of the duodenum. Persistent extraluminal gas within this region. Small scattered pneumoperitoneum. Surgical drain noted. Small perihepatic free fluid. Right mid abdomen somewhat loculated fluid along small bowel loops with associated bowel wall thickening. Tiny free fluid within the pelvis. Increased mesenteric edema. Increased body wall edema. The liver, spleen, adrenal glands, pancreas and gallbladder are unremarkable. No biliary ductal dilatation. Extensive atheromatous calcification throughout the nonaneurysmal abdominal aorta. Chronic calcified inferior aortic dissection, unchanged. Nonobstructing bilateral renal calculi. No hydronephrosis. Colonic diverticulosis. Hepatic flexure colonic wall thickening, likely reactive, similar compared to prior. Normal appendix. Multiple mild prominent air and fluid-filled loops of small bowel, may relate to ileus. No pathologic lymphadenopathy. Tiny focus of gas within the urinary bladder, likely related to instrumentation. Otherwise, the pelvic contents are unremarkable. Bones: Grade 1 anterolisthesis L4 on L5. Multilevel lumbar spondylosis. Impression: 1. Extravasation of oral contrast within the right upper quadrant extending from the first portion of the duodenum, concerning for persistent duodenal perforation. Scattered pneumoperitoneum. 2. Increased loculated fluid within the right mid abdomen adjacent to small bowel loops with wall thickening. 3. Increased mesenteric edema and body wall edema. 4. Small right pleural effusion with adjacent atelectasis. 5. Tiny focus of gas within the urinary bladder, likely related to recent instrumentation. FOR INTERNAL CODING PURPOSES Critical result: Findings discussed with patient's nurse at 05/14/2019 11:20 AM. RESULT CODE: (C) Laboratory Tests Test 05/14/19 11:54 05/15/19 03:30 05/15/19 03:35 05/15/19 06:01 Glucose (Fingerstick) 216 mg/dL (70-99) 250 mg/dL (70-99) Sodium Level 137 mmol/L (136-145) Potassium Level 3.9 mmol/L (3.5-5.1) Chloride Level 102 mmol/L (98-107) Carbon Dioxide Level 22 mmol/L (21-32) Anion Gap 13 (6-14) Blood Urea Nitrogen 35 mg/dL (8-26) Creatinine 1.6 mg/dL (0.7-1.3) Estimated GFR (Cockcroft-Gault) 42.6 BUN/Creatinine Ratio 22 (6-20) Glucose Level 280 mg/dL (70-99) Calcium Level 8.6 mg/dL (8.5-10.1) Phosphorus Level 3.5 mg/dL (2.6-4.7) Magnesium Level 2.0 mg/dL (1.8-2.4) Total Bilirubin 0.5 mg/dL (0.2-1.0) Aspartate Amino Transf (AST/SGOT) 29 U/L (15-37) Alanine Aminotransferase (ALT/SGPT) 47 U/L (16-63) Alkaline Phosphatase 100 U/L (46-116) Total Protein 6.1 g/dL (6.4-8.2) Albumin 2.0 g/dL (3.4-5.0) Albumin/Globulin Ratio 0.5 (1.0-1.7) Triglycerides Level 225 mg/dL (0-150) White Blood Count 21.1 x10^3/uL (4.0-11.0) Red Blood Count 3.41 x10^6/uL (4.30-5.70) Hemoglobin 10.5 g/dL (13.0-17.5) Hematocrit 32.4 % (39.0-53.0) Mean Corpuscular Volume 95 fL (79-100) Mean Corpuscular Hemoglobin 31 pg (25-35) Mean Corpuscular Hemoglobin Concent 32 g/dL (31-37) Red Cell Distribution Width 14.1 % (11.5-14.5) Platelet Count 333 x10^3/uL (140-400) Neutrophils (%) (Auto) 89 % (31-73) Lymphocytes (%) (Auto) 5 % (24-48) Monocytes (%) (Auto) 5 % (0-9) Eosinophils (%) (Auto) 0 % (0-3) Basophils (%) (Auto) 0 % (0-3) Neutrophils # (Auto) 18.9 x10^3/uL (1.8-7.7) Lymphocytes # (Auto) 1.1 x10^3/uL (1.0-4.8) Monocytes # (Auto) 1.1 x10^3/uL (0.0-1.1) Eosinophils # (Auto) 0.0 x10^3/uL (0.0-0.7) Basophils # (Auto) 0.1 x10^3/uL (0.0-0.2) Segmented Neutrophils % 83 % (35-66) Band Neutrophils % 3 % (0-9) Lymphocytes % 8 % (24-48) Monocytes % 6 % (0-10) Platelet Estimate Adequate (ADEQUATE) Assessment and Plan Assessmemt and Plan Problems Medical Problems: (1) Perforated intestine, nontraumatic Status: Acute Comment Review of Relevant I have reviewed the following items adriano (where applicable) has been applied. Labs Laboratory Tests Test 05/13/19 12:02 05/14/19 08:55 05/14/19 11:54 05/15/19 03:30 Glucose (Fingerstick) 161 mg/dL (70-99) 216 mg/dL (70-99) White Blood Count 12.6 x10^3/uL (4.0-11.0) Red Blood Count 3.45 x10^6/uL (4.30-5.70) Hemoglobin 10.8 g/dL (13.0-17.5) Hematocrit 33.0 % (39.0-53.0) Mean Corpuscular Volume 96 fL (79-100) Mean Corpuscular Hemoglobin 31 pg (25-35) Mean Corpuscular Hemoglobin Concent 33 g/dL (31-37) Red Cell Distribution Width 14.1 % (11.5-14.5) Platelet Count 304 x10^3/uL (140-400) Neutrophils (%) (Auto) 87 % (31-73) Lymphocytes (%) (Auto) 6 % (24-48) Monocytes (%) (Auto) 6 % (0-9) Eosinophils (%) (Auto) 0 % (0-3) Basophils (%) (Auto) 0 % (0-3) Neutrophils # (Auto) 11.0 x10^3/uL (1.8-7.7) Lymphocytes # (Auto) 0.8 x10^3/uL (1.0-4.8) Monocytes # (Auto) 0.7 x10^3/uL (0.0-1.1) Eosinophils # (Auto) 0.0 x10^3/uL (0.0-0.7) Basophils # (Auto) 0.0 x10^3/uL (0.0-0.2) Sodium Level 138 mmol/L (136-145) 137 mmol/L (136-145) Potassium Level 4.2 mmol/L (3.5-5.1) 3.9 mmol/L (3.5-5.1) Chloride Level 101 mmol/L (98-107) 102 mmol/L (98-107) Carbon Dioxide Level 23 mmol/L (21-32) 22 mmol/L (21-32) Anion Gap 14 (6-14) 13 (6-14) Blood Urea Nitrogen 23 mg/dL (8-26) 35 mg/dL (8-26) Creatinine 1.4 mg/dL (0.7-1.3) 1.6 mg/dL (0.7-1.3) Estimated GFR (Cockcroft-Gault) 49.7 42.6 BUN/Creatinine Ratio 16 (6-20) 22 (6-20) Glucose Level 228 mg/dL (70-99) 280 mg/dL (70-99) Calcium Level 8.7 mg/dL (8.5-10.1) 8.6 mg/dL (8.5-10.1) Total Bilirubin 0.7 mg/dL (0.2-1.0) 0.5 mg/dL (0.2-1.0) Aspartate Amino Transf (AST/SGOT) 53 U/L (15-37) 29 U/L (15-37) Alanine Aminotransferase (ALT/SGPT) 65 U/L (16-63) 47 U/L (16-63) Alkaline Phosphatase 101 U/L (46-116) 100 U/L (46-116) Creatine Kinase 238 U/L (39-308) Total Protein 6.4 g/dL (6.4-8.2) 6.1 g/dL (6.4-8.2) Albumin 2.2 g/dL (3.4-5.0) 2.0 g/dL (3.4-5.0) Albumin/Globulin Ratio 0.5 (1.0-1.7) 0.5 (1.0-1.7) Phosphorus Level 3.5 mg/dL (2.6-4.7) Magnesium Level 2.0 mg/dL (1.8-2.4) Triglycerides Level 225 mg/dL (0-150) Test 05/15/19 03:35 05/15/19 06:01 White Blood Count 21.1 x10^3/uL (4.0-11.0) Red Blood Count 3.41 x10^6/uL (4.30-5.70) Hemoglobin 10.5 g/dL (13.0-17.5) Hematocrit 32.4 % (39.0-53.0) Mean Corpuscular Volume 95 fL (79-100) Mean Corpuscular Hemoglobin 31 pg (25-35) Mean Corpuscular Hemoglobin Concent 32 g/dL (31-37) Red Cell Distribution Width 14.1 % (11.5-14.5) Platelet Count 333 x10^3/uL (140-400) Neutrophils (%) (Auto) 89 % (31-73) Lymphocytes (%) (Auto) 5 % (24-48) Monocytes (%) (Auto) 5 % (0-9) Eosinophils (%) (Auto) 0 % (0-3) Basophils (%) (Auto) 0 % (0-3) Neutrophils # (Auto) 18.9 x10^3/uL (1.8-7.7) Lymphocytes # (Auto) 1.1 x10^3/uL (1.0-4.8) Monocytes # (Auto) 1.1 x10^3/uL (0.0-1.1) Eosinophils # (Auto) 0.0 x10^3/uL (0.0-0.7) Basophils # (Auto) 0.1 x10^3/uL (0.0-0.2) Segmented Neutrophils % 83 % (35-66) Band Neutrophils % 3 % (0-9) Lymphocytes % 8 % (24-48) Monocytes % 6 % (0-10) Platelet Estimate Adequate (ADEQUATE) Glucose (Fingerstick) 250 mg/dL (70-99) Laboratory Tests Test 05/14/19 11:54 05/15/19 03:30 05/15/19 03:35 05/15/19 06:01 Glucose (Fingerstick) 216 mg/dL (70-99) 250 mg/dL (70-99) Sodium Level 137 mmol/L (136-145) Potassium Level 3.9 mmol/L (3.5-5.1) Chloride Level 102 mmol/L (98-107) Carbon Dioxide Level 22 mmol/L (21-32) Anion Gap 13 (6-14) Blood Urea Nitrogen 35 mg/dL (8-26) Creatinine 1.6 mg/dL (0.7-1.3) Estimated GFR (Cockcroft-Gault) 42.6 BUN/Creatinine Ratio 22 (6-20) Glucose Level 280 mg/dL (70-99) Calcium Level 8.6 mg/dL (8.5-10.1) Phosphorus Level 3.5 mg/dL (2.6-4.7) Magnesium Level 2.0 mg/dL (1.8-2.4) Total Bilirubin 0.5 mg/dL (0.2-1.0) Aspartate Amino Transf (AST/SGOT) 29 U/L (15-37) Alanine Aminotransferase (ALT/SGPT) 47 U/L (16-63) Alkaline Phosphatase 100 U/L (46-116) Total Protein 6.1 g/dL (6.4-8.2) Albumin 2.0 g/dL (3.4-5.0) Albumin/Globulin Ratio 0.5 (1.0-1.7) Triglycerides Level 225 mg/dL (0-150) White Blood Count 21.1 x10^3/uL (4.0-11.0) Red Blood Count 3.41 x10^6/uL (4.30-5.70) Hemoglobin 10.5 g/dL (13.0-17.5) Hematocrit 32.4 % (39.0-53.0) Mean Corpuscular Volume 95 fL (79-100) Mean Corpuscular Hemoglobin 31 pg (25-35) Mean Corpuscular Hemoglobin Concent 32 g/dL (31-37) Red Cell Distribution Width 14.1 % (11.5-14.5) Platelet Count 333 x10^3/uL (140-400) Neutrophils (%) (Auto) 89 % (31-73) Lymphocytes (%) (Auto) 5 % (24-48) Monocytes (%) (Auto) 5 % (0-9) Eosinophils (%) (Auto) 0 % (0-3) Basophils (%) (Auto) 0 % (0-3) Neutrophils # (Auto) 18.9 x10^3/uL (1.8-7.7) Lymphocytes # (Auto) 1.1 x10^3/uL (1.0-4.8) Monocytes # (Auto) 1.1 x10^3/uL (0.0-1.1) Eosinophils # (Auto) 0.0 x10^3/uL (0.0-0.7) Basophils # (Auto) 0.1 x10^3/uL (0.0-0.2) Segmented Neutrophils % 83 % (35-66) Band Neutrophils % 3 % (0-9) Lymphocytes % 8 % (24-48) Monocytes % 6 % (0-10) Platelet Estimate Adequate (ADEQUATE) Medications Current Medications Fentanyl Citrate (Fentanyl 2ml Vial) 50 mcg PRN Q15MIN PRN IV PAIN GREATER THAN 3/10 Last administered on 05/08/19at 19:27; Start 05/08/19 at 16:30; Stop 05/08/19 at 21:00; Status DC Sodium Chloride 1,000 ml @ 250 mls/hr Q4H IV Last administered on 05/08/19at 16:54; Start 05/08/19 at 16:19; Stop 05/08/19 at 20:18; Status DC Metoclopramide HCl (Reglan Vial) 10 mg 1X ONCE IVP Last administered on 05/08/19at 16:51; Start 05/08/19 at 17:00; Stop 05/08/19 at 17:01; Status DC Diphenhydramine HCl (Benadryl) 25 mg 1X ONCE IVP Last administered on 05/08/19at 16:51; Start 05/08/19 at 17:00; Stop 05/08/19 at 17:01; Status DC Iohexol (Omnipaque 350 Mg/ml) 90 ml 1X ONCE IV Last administered on 05/08/19at 17:45; Start 05/08/19 at 17:30; Stop 05/08/19 at 17:31; Status DC Info (CONTRAST GIVEN -- Rx MONITORING) 1 each PRN DAILY PRN MC SEE COMMENTS; Start 05/08/19 at 17:30; Stop 05/10/19 at 17:29; Status DC Hydromorphone HCl (Dilaudid) 1 mg 1X ONCE IV Last administered on 05/08/19at 18:23; Start 05/08/19 at 18:30; Stop 05/08/19 at 18:31; Status DC Piperacillin Sod/ Tazobactam Sod 3.375 gm/Sodium Chloride 50 ml @ 100 mls/hr 1X ONCE IV Last administered on 05/08/19at 19:06; Start 05/08/19 at 19:00; Stop 05/08/19 at 19:29; Status DC Sodium Chloride 1,000 ml @ 1,000 mls/hr 1X ONCE IV Last administered on 05/08/19at 19:06; Start 05/08/19 at 19:00; Stop 05/08/19 at 19:59; Status DC Ondansetron HCl (Zofran) 4 mg STK-MED ONCE .ROUTE ; Start 05/08/19 at 19:34; Stop 05/08/19 at 19:34; Status DC Propofol 20 ml @ As Directed STK-MED ONCE IV ; Start 05/08/19 at 19:34; Stop 05/08/19 at 19:34; Status DC Lidocaine HCl (Lidocaine Pf 2% Vial) 5 ml STK-MED ONCE .ROUTE ; Start 05/08/19 at 19:34; Stop 05/08/19 at 19:34; Status DC Dexamethasone Sodium Phosphate (Decadron) 4 mg STK-MED ONCE .ROUTE ; Start 05/08/19 at 19:34; Stop 05/08/19 at 19:34; Status DC Fentanyl Citrate (Fentanyl 2ml Vial) 100 mcg STK-MED ONCE .ROUTE ; Start 05/08/19 at 19:34; Stop 05/08/19 at 19:34; Status DC Succinylcholine Chloride (Anectine) 200 mg STK-MED ONCE .ROUTE ; Start 05/08/19 at 19:34; Stop 05/08/19 at 19:34; Status DC Rocuronium [place] (Zemuron) 50 mg STK-MED ONCE .ROUTE ; Start 05/08/19 at 19:34; Stop 05/08/19 at 19:34; Status DC Ondansetron HCl (Zofran) 4 mg PRN Q6HRS PRN IV NAUSEA/VOMITING; Start 05/08/19 at 19:45; Stop 05/08/19 at 23:59; Status DC Fentanyl Citrate (Fentanyl 2ml Vial) 25 mcg PRN Q5MIN PRN IV MILD PAIN 1-3; Start 05/08/19 at 19:45; Stop 05/08/19 at 23:59; Status DC Fentanyl Citrate (Fentanyl 2ml Vial) 50 mcg PRN Q5MIN PRN IV MODERATE TO SEVERE PAIN; Start 05/08/19 at 19:45; Stop 05/08/19 at 23:59; Status DC Ringer's Solution 1,000 ml @ 30 mls/hr Q24H IV Last administered on 05/08/19at 23:06; Start 05/08/19 at 20:00; Stop 05/09/19 at 01:00; Status DC Prochlorperazine Edisylate (Compazine) 5 mg PACU PRN PRN IV NAUSEA, MRX1; Start 05/08/19 at 19:45; Stop 05/08/19 at 23:59; Status DC Insulin Human Lispro (HumaLOG VIAL for OP,RR ONLY) 0-10 units PRN Q1HR PRN SQ PER PROTOCOL; Start 05/08/19 at 19:45; Stop 05/08/19 at 23:59; Status DC Bupivacaine HCl/ Epinephrine Bitart (Sensorcaine-Epi 0.25%-1:[id number] Mpf) 30 ml 1X ONCE INJ Last administered on 05/08/19at 20:32; Start 05/08/19 at 20:00; Stop 05/08/19 at 20:01; Status DC Ketamine HCl (Ketamine) 50 mg STK-MED ONCE .ROUTE ; Start 05/08/19 at 20:12; Stop 05/08/19 at 20:12; Status DC Phenylephrine HCl (PHENYLEPHRINE in 0.9% NACL PF) 1 mg STK-MED ONCE IV ; Start 05/08/19 at 20:33; Stop 05/08/19 at 20:33; Status DC Ephedrine Sulfate (ePHEDrine PF IN SALINE SYRINGE) 50 mg STK-MED ONCE IV ; Start 05/08/19 at 20:36; Stop 05/08/19 at 20:36; Status DC Albumin Human 500 ml @ As Directed STK-MED ONCE IV ; Start 05/08/19 at 20:55; Stop 05/08/19 at 20:55; Status DC Glycopyrrolate (Robinul) 1 mg STK-MED ONCE .ROUTE ; Start 05/08/19 at 21:27; Stop 05/08/19 at 21:27; Status DC Neostigmine Methylsulfate (Neostigmine Methylsulfate) 5 mg STK-MED ONCE .ROUTE ; Start 05/08/19 at 21:27; Stop 05/08/19 at 21:27; Status DC Bupivacaine HCl (Sensorcaine Mpf 0.5%) 30 ml STK-MED ONCE .ROUTE ; Start 05/08/19 at 21:39; Stop 05/08/19 at 21:39; Status DC Epinephrine HCl (Adrenalin) 1 mg STK-MED ONCE .ROUTE ; Start 05/08/19 at 21:39; Stop 05/08/19 at 21:39; Status DC Sevoflurane (Ultane) 60 ml STK-MED ONCE IH ; Start 05/08/19 at 21:44; Stop 05/08/19 at 21:44; Status DC Sodium Chloride 1,000 ml @ 125 mls/hr Q8H IV Last administered on 05/08/19at 23:45; Start 05/08/19 at 22:00; Stop 05/09/19 at 15:21; Status DC Ondansetron HCl (Zofran) 4 mg PRN Q6HRS PRN IVP NAUSEA/VOMITING 1ST CHOICE; Start 05/08/19 at 22:00 Fluconazole/ Sodium Chloride 100 ml @ 100 mls/hr Q24H IV Last administered on 05/13/19at 21:14; Start 05/08/19 at 22:00; Stop 05/14/19 at 10:28; Status DC Hydromorphone HCl (Dilaudid) 1 mg PRN Q4HRS PRN IV SEVERE PAIN 7-10 Last administered on 05/15/19at 06:08; Start 05/08/19 at 22:00 Piperacillin Sod/ Tazobactam Sod 3.375 gm/Sodium Chloride 50 ml @ 100 mls/hr Q6HRS IV Last administered on 05/14/19at 05:49; Start 05/09/19 at 00:00; Stop 05/14/19 at 10:28; Status DC Pantoprazole Sodium (PROTONIX VIAL for IV PUSH) 40 mg DAILY IVP Last administered on 05/11/19at 09:43; Start 05/09/19 at 09:00; Stop 05/12/19 at 08:30; Status DC Insulin Human Regular 150 unit/ Sodium Chloride 151.5 ml @ 0 mls/hr CONT PRN IV SEE I/O RECORD; Start 05/08/19 at 23:00; Status UNV Insulin Human Regular 150 unit/ Sodium Chloride 151.5 ml @ 0 mls/hr CONT PRN IV SEE I/O RECORD Last administered on 05/08/19at 23:03; Start 05/08/19 at 23:00; Stop 05/12/19 at 13:06; Status DC Dextrose (Dextrose 50%-Water Syringe) 12.5 gm PRN Q15MIN PRN IV LOW BLOOD SUGAR; Start 05/08/19 at 23:00 Dextrose 250 ml PRN Q15MIN PRN IV LOW BLOOD SUGAR; Start 05/08/19 at 23:00 Albumin Human 500 ml @ 250 mls/hr 1X ONCE IV Last administered on 05/09/19at 00:10; Start 05/09/19 at 00:30; Stop 05/09/19 at 02:29; Status DC Norepinephrine Bitartrate 250 ml @ 20.156 mls/ hr CONT PRN IV SEE I/O RECORD; Start 05/09/19 at 00:00; Stop 05/12/19 at 13:06; Status DC Dextrose/Sodium Chloride 1,000 ml @ 150 mls/hr Q6H40M IV Last administered on 05/09/19at 12:28; Start 05/09/19 at 08:45; Stop 05/09/19 at 18:30; Status DC Sodium Chloride 500 ml @ 500 mls/hr PRN Q2HR PRN IV SEE COMMENTS; Start 05/09/19 at 11:15 Sodium Chloride 1,000 ml @ 2,190 mls/hr Q28M IV ; Start 05/09/19 at 12:39; Stop 05/09/19 at 13:39; Status DC Sodium Chloride 500 ml @ 1,000 mls/hr PRN Q30MIN PRN IV SEE COMMENTS; Start 05/09/19 at 12:45; Stop 05/09/19 at 12:50; Status DC Norepinephrine Bitartrate 250 ml @ 19.688 mls/ hr CONT PRN IV SEE I/O RECORD; Start 05/09/19 at 12:45; Status Cancel Dobutamine HCl/ Dextrose 250 ml @ 15.75 mls/ hr CONT PRN IV SEE I/O RECORD; Start 05/09/19 at 12:45; Stop 05/12/19 at 13:06; Status DC Insulin Human Lispro (HumaLOG) 0-7 UNITS TIDWMEALS SQ ; Start 05/09/19 at 17:00; Stop 05/09/19 at 19:36; Status DC Dextrose (Dextrose 50%-Water Syringe) 12.5 gm PRN Q15MIN PRN IV SEE COMMENTS; Start 05/09/19 at 15:30; Status UNV Sodium Chloride 1,000 ml @ 60 mls/hr [id number] IV Last administered on 05/10/19at 16:47; Start 05/09/19 at 15:30; Stop 05/12/19 at 10:57; Status DC Insulin Human Lispro (HumaLOG) 0-7 UNITS Q6HRS SQ Last administered on 05/13/19at 05:50; Start 05/10/19 at 00:00; Stop 05/13/19 at 08:27; Status DC Albuterol/ Ipratropium (Duoneb) 3 ml RTQID NEB Last administered on 05/15/19at 07:14; Start 05/10/19 at 08:00 Budesonide (Pulmicort) 0.5 mg RTBID NEB Last administered on 05/15/19at 07:14; Start 05/10/19 at 08:00 Heparin Sodium (Porcine) (Heparin Sodium) 5,000 unit BID SQ Last administered on 05/15/19at 09:26; Start 05/11/19 at 10:00 Phenol (Chloraseptic) 1 spray PRN Q2HR PRN PO SORE THROAT Last administered on 05/11/19at 13:12; Start 05/11/19 at 11:30 Multi-Ingredient Ointment (Analgesic Mccarr) 1 jazlyn PRN QID PRN TP MUSCLE PAIN; Start 05/11/19 at 11:30 Amino Acids/ Glycerin/ Electrolytes 1,000 ml @ 80 mls/hr [id number] IV Last administered on 05/15/19at 05:59; Start 05/11/19 at 12:00 Hydralazine HCl (Apresoline Inj) 10 mg PRN Q4HRS PRN IVP ELEVATED BP, SEE COMMENTS; Start 05/11/19 at 11:45 Pantoprazole Sodium (Protonix) 40 mg DAILYAC PO Last administered on 05/14/19at 06:04; Start 05/12/19 at 09:00 Carbidopa/Levodopa (Sinemet 25/100) 1 tab TID PO ; Start 05/12/19 at 14:00; Stop 05/12/19 at 13:40; Status DC Lisinopril (Prinivil) 10 mg DAILY PO Last administered on 05/14/19at 09:14; Start 05/13/19 at 09:00 Simvastatin (Zocor) 10 mg QHS PO Last administered on 05/14/19at 21:08; Start 05/12/19 at 21:00 Venlafaxine HCl (Effexor) 75 mg DAILY PO Last administered on 05/12/19at 13:34; Start 05/12/19 at 13:30; Stop 05/12/19 at 14:20; Status DC Primidone (Mysoline) 50 mg DAILY PO ; Start 05/12/19 at 13:45; Stop 05/12/19 at 14:27; Status DC Insulin Glargine (Lantus Syringe) 15 unit QHS SQ Last administered on 05/14/19at 21:19; Start 05/12/19 at 21:00 Venlafaxine HCl (Effexor Xr) 75 mg DAILY PO Last administered on 05/14/19at 09:13; Start 05/13/19 at 09:00 Lactobacillus Rhamnosus (Culturelle) 1 cap BID PO Last administered on at 21:08; Start 05/12/19 at 21:00 Primidone (Mysoline) 25 mg BID PO Last administered on 05/14/19at 21:08; Start 05/12/19 at 14:30 Gabapentin (Neurontin) 300 mg PRN QHS PRN PO NEUROPATHIC PAIN Last administered on 05/12/19at 20:53; Start 05/12/19 at 17:45 Acetaminophen (Tylenol) 500 mg PRN Q6HRS PRN PO MILD PAIN / TEMP; Start 05/13/19 at 08:30 Tramadol HCl (Ultram) 50 mg PRN Q6HRS PRN PO PAIN MOD TO SEV Last administered on 05/14/19at 04:27; Start 05/13/19 at 08:30 Clonidine HCl (Catapres) 0.1 mg PRN Q1HR PRN PO HYPERTENSION; Start 05/13/19 at 08:30 Ondansetron HCl (Zofran) 4 mg PRN Q6HRS PRN IVP NAUSEA/VOMITING; Start 05/13/19 at 08:30; Status UNV Venlafaxine HCl (Effexor Xr) 37.5 mg BID PO ; Start 05/13/19 at 09:00; Stop 05/13/19 at 08:33; Status DC Iohexol (Omnipaque 240 Mg/ml) 30 ml 1X ONCE PO Last administered on 05/14/19at 08:45; Start 05/14/19 at 08:45; Stop 05/14/19 at 08:48; Status DC Iohexol (Omnipaque 300 Mg/ml) 60 ml 1X ONCE IV Last administered on 05/14/19at 08:45; Start 05/14/19 at 08:45; Stop 05/14/19 at 08:48; Status DC Info (CONTRAST GIVEN -- Rx MONITORING) 1 each PRN DAILY PRN MC SEE COMMENTS; Start 05/14/19 at 09:00; Stop 05/16/19 at 08:59 Daptomycin 570 mg/ Sodium Chloride 50 ml @ 100 mls/hr Q24H IV Last adm inistered on 05/14/19at 14:00; Start 05/14/19 at 11:30 Micafungin Sodium 100 mg/Dextrose 100 ml @ 100 mls/hr Q24H IV Last adm inistered on 05/14/19at 12:05; Start 05/14/19 at 11:00 Cefepime HCl (Maxipime) 2 gm Q8HRS IVP Last administered on 05/15/19at 05:59; Start 05/14/19 at 12:00 Metronidazole 100 ml @ 100 mls/hr Q8HRS IV Last administered on 05/15/19at 05:59; Start 05/14/19 at 14:00 Lidocaine HCl (Buffered Lidocaine 1%) 3 ml STK-MED ONCE .ROUTE ; Start 05/14/19 at 12:43; Stop 05/14/19 at 12:44; Status DC Lidocaine HCl (Buffered Lidocaine 1%) 3 ml 1X ONCE IJ Last administered on 05/14/19at 13:14; Start 05/14/19 at 13:00; Stop 05/14/19 at 13:02; Status DC Info (Tpn Per Pharmacy) 1 each PRN DAILY PRN MC SEE COMMENTS; Start 05/14/19 at 16:00 Active Scripts Active Reported Venlafaxine Hcl Er (Venlafaxine Hcl) 75 Mg Cap.er.24h 75 Mg PO DAILY Simvastatin 10 Mg Tablet 10 Mg PO DAILY Metformin Hcl 1,000 Mg Tablet 1,000 Mg PO BIDWMEALS Meloxicam 15 Mg Tablet Unknown Dose PO DAILY Lisinopril 10 Mg Tablet Unknown Dose PO DAILY Humalog (Insulin Lispro) 100 Unit/1 Ml Cartridge 100 Unit SQ Sinemet 25-100 Mg Tablet (Carbidopa/Levodopa) 1 Each Tablet 1 Tab PO TID Vitals/I & O Vital Sign - Last 24 Hours 05/14/19 05/14/19 05/14/19 05/14/19 11:00 11:15 12:05 15:00 Temp 98.2 97.8 98.2 97.8 Pulse 109 58 Resp 16 16 B/P (MAP) 139/83 (101) 119/63 (81) Pulse Ox 92 91 91 94 O2 Delivery Room Air Room Air Room Air Room Air O2 Flow Rate 2.0 05/14/19 05/14/19 05/14/19 05/14/19 15:03 19:00 19:32 19:33 Temp 98.3 98.3 Pulse 106 Resp 18 B/P (MAP) 129/59 (82) Pulse Ox 91 91 91 91 O2 Delivery Room Air Room Air Room Air Room Air 05/14/19 05/14/19 05/14/19 05/14/19 20:00 21:13 21:43 23:00 Temp 98.9 98.9 Pulse 99 Resp 18 B/P (MAP) 122/62 (82) Pulse Ox 91 91 91 O2 Delivery Room Air Room Air Room Air Room Air O2 Flow Rate 2.0 2.0 05/15/19 05/15/19 05/15/19 05/15/19 03:00 06:08 07:00 07:14 Temp 98.0 97.9 98.0 97.9 Pulse 97 95 Resp 18 18 B/P (MAP) 135/62 (86) 130/71 (90) Pulse Ox 90 90 90 92 O2 Delivery Room Air Room Air Room Air Room Air O2 Flow Rate 2.0 05/15/19 05/15/19 07:49 08:05 Pulse 97 B/P (MAP) 135/62 Pulse Ox 92 O2 Delivery Room Air O2 Flow Rate 2.0 Intake and Output 05/14/19 05/14/19 05/15/19 15:00 23:00 07:00 Output Total 1045 ml 1020 ml 460 ml Balance -1045 ml -1020 ml -460 ml JAZMINE COLLINS MD May 15, 2019 10:31
--- NOTE | 2019-05-15 10:51 | PDOC ---
PULMONARY PROGRESS NOTES Subjective PT DOES NOT FEEL WELL TODAY NOT MORE SOA Vitals Vital Signs Date Time Temp Pulse Resp B/P (MAP) Pulse Ox O2 Delivery O2 Flow Rate FiO2 05/15/19 08:05 97 135/62 05/15/19 07:49 92 Room Air 2.0 05/15/19 07:00 97.9 18 97.9 ROS: No Chest Pain General: Alert, Oriented X4 HEENT: Other (nc at perrl nose throat clear neck no lad no thyromegaly) Lungs: Clear, Other (deminished bs) Cardiovascular: S1, S2 Abdomen: Soft, Non-tender, Other (no mass) Neuro Exam: Alert Extremities: No Edema Skin: Warm Labs Laboratory Tests Test 05/13/19 12:02 05/14/19 08:55 05/14/19 11:54 05/15/19 03:30 Glucose (Fingerstick) 161 mg/dL (70-99) 216 mg/dL (70-99) White Blood Count 12.6 x10^3/uL (4.0-11.0) Red Blood Count 3.45 x10^6/uL (4.30-5.70) Hemoglobin 10.8 g/dL (13.0-17.5) Hematocrit 33.0 % (39.0-53.0) Mean Corpuscular Volume 96 fL (79-100) Mean Corpuscular Hemoglobin 31 pg (25-35) Mean Corpuscular Hemoglobin Concent 33 g/dL (31-37) Red Cell Distribution Width 14.1 % (11.5-14.5) Platelet Count 304 x10^3/uL (140-400) Neutrophils (%) (Auto) 87 % (31-73) Lymphocytes (%) (Auto) 6 % (24-48) Monocytes (%) (Auto) 6 % (0-9) Eosinophils (%) (Auto) 0 % (0-3) Basophils (%) (Auto) 0 % (0-3) Neutrophils # (Auto) 11.0 x10^3/uL (1.8-7.7) Lymphocytes # (Auto) 0.8 x10^3/uL (1.0-4.8) Monocytes # (Auto) 0.7 x10^3/uL (0.0-1.1) Eosinophils # (Auto) 0.0 x10^3/uL (0.0-0.7) Basophils # (Auto) 0.0 x10^3/uL (0.0-0.2) Sodium Level 138 mmol/L (136-145) 137 mmol/L (136-145) Potassium Level 4.2 mmol/L (3.5-5.1) 3.9 mmol/L (3.5-5.1) Chloride Level 101 mmol/L (98-107) 102 mmol/L (98-107) Carbon Dioxide Level 23 mmol/L (21-32) 22 mmol/L (21-32) Anion Gap 14 (6-14) 13 (6-14) Blood Urea Nitrogen 23 mg/dL (8-26) 35 mg/dL (8-26) Creatinine 1.4 mg/dL (0.7-1.3) 1.6 mg/dL (0.7-1.3) Estimated GFR (Cockcroft-Gault) 49.7 42.6 BUN/Creatinine Ratio 16 (6-20) 22 (6-20) Glucose Level 228 mg/dL (70-99) 280 mg/dL (70-99) Calcium Level 8.7 mg/dL (8.5-10.1) 8.6 mg/dL (8.5-10.1) Total Bilirubin 0.7 mg/dL (0.2-1.0) 0.5 mg/dL (0.2-1.0) Aspartate Amino Transf (AST/SGOT) 53 U/L (15-37) 29 U/L (15-37) Alanine Aminotransferase (ALT/SGPT) 65 U/L (16-63) 47 U/L (16-63) Alkaline Phosphatase 101 U/L (46-116) 100 U/L (46-116) Creatine Kinase 238 U/L (39-308) Total Protein 6.4 g/dL (6.4-8.2) 6.1 g/dL (6.4-8.2) Albumin 2.2 g/dL (3.4-5.0) 2.0 g/dL (3.4-5.0) Albumin/Globulin Ratio 0.5 (1.0-1.7) 0.5 (1.0-1.7) Phosphorus Level 3.5 mg/dL (2.6-4.7) Magnesium Level 2.0 mg/dL (1.8-2.4) Triglycerides Level 225 mg/dL (0-150) Test 05/15/19 03:35 05/15/19 06:01 White Blood Count 21.1 x10^3/uL (4.0-11.0) Red Blood Count 3.41 x10^6/uL (4.30-5.70) Hemoglobin 10.5 g/dL (13.0-17.5) Hematocrit 32.4 % (39.0-53.0) Mean Corpuscular Volume 95 fL (79-100) Mean Corpuscular Hemoglobin 31 pg (25-35) Mean Corpuscular Hemoglobin Concent 32 g/dL (31-37) Red Cell Distribution Width 14.1 % (11.5-14.5) Platelet Count 333 x10^3/uL (140-400) Neutrophils (%) (Auto) 89 % (31-73) Lymphocytes (%) (Auto) 5 % (24-48) Monocytes (%) (Auto) 5 % (0-9) Eosinophils (%) (Auto) 0 % (0-3) Basophils (%) (Auto) 0 % (0-3) Neutrophils # (Auto) 18.9 x10^3/uL (1.8-7.7) Lymphocytes # (Auto) 1.1 x10^3/uL (1.0-4.8) Monocytes # (Auto) 1.1 x10^3/uL (0.0-1.1) Eosinophils # (Auto) 0.0 x10^3/uL (0.0-0.7) Basophils # (Auto) 0.1 x10^3/uL (0.0-0.2) Segmented Neutrophils % 83 % (35-66) Band Neutrophils % 3 % (0-9) Lymphocytes % 8 % (24-48) Monocytes % 6 % (0-10) Platelet Estimate Adequate (ADEQUATE) Glucose (Fingerstick) 250 mg/dL (70-99) Laboratory Tests Test 05/14/19 11:54 05/15/19 03:30 05/15/19 03:35 05/15/19 06:01 Glucose (Fingerstick) 216 mg/dL (70-99) 250 mg/dL (70-99) Sodium Level 137 mmol/L (136-145) Potassium Level 3.9 mmol/L (3.5-5.1) Chloride Level 102 mmol/L (98-107) Carbon Dioxide Level 22 mmol/L (21-32) Anion Gap 13 (6-14) Blood Urea Nitrogen 35 mg/dL (8-26) Creatinine 1.6 mg/dL (0.7-1.3) Estimated GFR (Cockcroft-Gault) 42.6 BUN/Creatinine Ratio 22 (6-20) Glucose Level 280 mg/dL (70-99) Calcium Level 8.6 mg/dL (8.5-10.1) Phosphorus Level 3.5 mg/dL (2.6-4.7) Magnesium Level 2.0 mg/dL (1.8-2.4) Total Bilirubin 0.5 mg/dL (0.2-1.0) Aspartate Amino Transf (AST/SGOT) 29 U/L (15-37) Alanine Aminotransferase (ALT/SGPT) 47 U/L (16-63) Alkaline Phosphatase 100 U/L (46-116) Total Protein 6.1 g/dL (6.4-8.2) Albumin 2.0 g/dL (3.4-5.0) Albumin/Globulin Ratio 0.5 (1.0-1.7) Triglycerides Level 225 mg/dL (0-150) White Blood Count 21.1 x10^3/uL (4.0-11.0) Red Blood Count 3.41 x10^6/uL (4.30-5.70) Hemoglobin 10.5 g/dL (13.0-17.5) Hematocrit 32.4 % (39.0-53.0) Mean Corpuscular Volume 95 fL (79-100) Mean Corpuscular Hemoglobin 31 pg (25-35) Mean Corpuscular Hemoglobin Concent 32 g/dL (31-37) Red Cell Distribution Width 14.1 % (11.5-14.5) Platelet Count 333 x10^3/uL (140-400) Neutrophils (%) (Auto) 89 % (31-73) Lymphocytes (%) (Auto) 5 % (24-48) Monocytes (%) (Auto) 5 % (0-9) Eosinophils (%) (Auto) 0 % (0-3) Basophils (%) (Auto) 0 % (0-3) Neutrophils # (Auto) 18.9 x10^3/uL (1.8-7.7) Lymphocytes # (Auto) 1.1 x10^3/uL (1.0-4.8) Monocytes # (Auto) 1.1 x10^3/uL (0.0-1.1) Eosinophils # (Auto) 0.0 x10^3/uL (0.0-0.7) Basophils # (Auto) 0.1 x10^3/uL (0.0-0.2) Segmented Neutrophils % 83 % (35-66) Band Neutrophils % 3 % (0-9) Lymphocytes % 8 % (24-48) Monocytes % 6 % (0-10) Platelet Estimate Adequate (ADEQUATE) Medications Active Scripts Medications Dose Route/Sig Max Daily Dose Days Date Category Venlafaxine Hcl 75 Mg Tablet Unknown Dose PO DAILY 02/18/19 Reported Simvastatin 10 Mg Tablet 10 Mg PO DAILY 02/18/19 Reported Metformin Hcl 1,000 Mg Tablet 1,000 Mg PO BIDWMEALS 02/18/19 Reported Meloxicam 15 Mg Tablet Unknown Dose PO DAILY 02/18/19 Reported Lisinopril 10 Mg Tablet Unknown Dose PO DAILY 02/18/19 Reported Humalog (Insulin Lispro) 100 Unit/1 Ml Cartridge 100 Unit SQ 02/18/19 Reported Sinemet 25-100 Mg Tablet (Carbidopa/Levodopa) 1 Each Tablet 1 Tab PO TID 02/18/19 Reported Impression . IMPRESSION: 1. Expected acute hypoxemic respiratory failure status post repair of a perforated duodenal ulcer. 2. Status post laparoscopy with open laparotomy for closure of a duodenal ulcer with Dawood patch. 3. Acute exacerbation of chronic obstructive pulmonary disease. 4. Tobacco dependence. 5. Hypertension. 6. Recent right shoulder repair. 7. Hypotension. 8. Fever. 9. Possible sepsis present upon admission. Impression: 1. Extravasation of oral contrast within the right upper quadrant extending from the first portion of the duodenum, concerning for persistent duodenal perforation. Scattered pneumoperitoneum. 2. Increased loculated fluid within the right mid abdomen adjacent to small bowel loops with wall thickening. 3. Increased mesenteric edema and body wall edema. 4. Small right pleural effusion with adjacent atelectasis. 5. Tiny focus of gas within the urinary bladder, likely related to recent instrumentation. Plan . WILL FOLLOW UP WITH SURGEON AGREE WITH CURRENT RX D/C SMOKING CONTINUE SUPPORT TG RAZO MD May 15, 2019 10:51
[2019-05-15] MEDS: MICAFUNGIN 100 MG in IV DEXTROSE 5% 100ML 100 ML IV SCH (11:43)
--- NOTE | 2019-05-15 11:55 | NUR ---
SW following. Chart reviewed, discussed with RN. Pt has NG tube, TPN, MACKENZIE drain, and abx. Possibility of needing another surgery, per RN. Plan is to discharge to [facility] when ready. SW will continue to follow.
[2019-05-15] MEDS: DAPTOmycin (GENERIC) IVPB 570 MG in IV NORMAL SALINE 50ML 50 ML IV SCH (12:55)
[2019-05-15] MEDS ORDERED: LIDOCAINE WITH 8.4% SOD BICARB 3 ML DISP.SYRIN. ONE (13:19)
[2019-05-15] MEDS ORDERED: NALOXONE 0.4 MG/ML VIAL. ONE (13:47)
[2019-05-15] MEDS ORDERED: FLUMAZENIL 0.5 MG/5 ML VIAL. IV ONE (13:47)
[2019-05-15] MEDS ORDERED: MIDAZOLAM HCL/PF 2 MG/2 ML VIAL. ONE (13:47)
[2019-05-15] MEDS ORDERED: fentaNYL PF VIAL 100 MCG/2 ML VIAL ONE (13:47)
[2019-05-15 13:50] LABS: PROTHROMBIN TIME PATIENT 16.9 SEC (11.7-14.0)
[2019-05-15] MEDS ORDERED: LIDOCAINE WITH 8.4% SOD BICARB 3 ML DISP.SYRIN. IJ ONE (14:30)
[2019-05-15] MEDS ORDERED: fentaNYL PF VIAL 100 MCG/2 ML VIAL IV ONE (14:30)
[2019-05-15] MEDS ORDERED: MIDAZOLAM HCL/PF 2 MG/2 ML VIAL. IV ONE (14:30)
[2019-05-15] MEDS: TPN PER PHARMACY MC PRN (14:34)
--- NOTE | 2019-05-15 14:36 | NUR ---
Pharmacy TPN Dosing Note S: MORIAH BARRAGAN is a 73 year old M Currently receiving Central Continuous TPN started 05/15/19 B:Pertinent PMH: Perforated duodenal ulcer Height: 5 feet, 10 inches Weight: 90.5 kg Current diet: NPO LABS: Sodium: 137 Potassium: 3.9 Chloride: 102 Calcium: 8.6 Corrected Calcium: 10.20 Magnesium: 2 CO2: 22 SCr: 1.6 Glucose: 216-280 Albumin: 2.0 AST: 29 ALT: 47 TPN FORMULA: TPN TYPE: Central Continuous AMINO ACIDS: 60 gm DEXTROSE: 195 gm LIPIDS: 20 gm SODIUM CHLORIDE: 90 mEq POTASSIUM CHLORIDE: 50 mEq POTASSIUM PHOSPHATE: 13.6 mmol MAGNESIUM: 10 mEq CALCIUM: 10 mEq MULTIPLE VITAMIN: 10 ml TRACE ELEMENTS: 1 ml TPN PLAN: Initate house formula TPN R: Begin TPN Will monitor electrolytes, glucose, and tolerance to TPN. Leanna Uriostegui [facility], 05/15/19 [id number]
--- NOTE | 2019-05-15 14:42 | PDOC ---
MODERATE SEDATION ASSESSMENT RISKS/ALTERNATIVES Risks/Alternatives Risks and alternatives of this type of sedation and procedure discussed with: RISK/ALTERNATIVES: Patient H & P ON CHART H & P H & P on chart and reviewed for co-morbid conditions and appropriate labs. H&P ON CHART: Yes STATUS PREG STATUS ASSESSED: Yes MEDS/ALLERGIES REVIEWED Meds/Allergies Reviewed Medications and Allergies including time and route of recently administered narcotics and sedatives. MEDS/ALLERGIES REVIEWED: Yes ASA RATING ASA RATING: II AIRWAY ASSESSMENT Airway Assessment Airway patency, oral function limitations, presence of caps, crowns, dentures, partials, and ability to extend neck assessed. AIRWAY ASSESSMENT: Yes MALLAMPATI SCORE MALLAMPATI SCORE: II PRE-SEDATION ASSESSMENT PRE-SEDATION ASSESSMENT: Yes PHYLLIS RANGEL MD May 15, 2019 14:42
--- NOTE | 2019-05-15 14:43 | PDOC ---
BRIEF OPERATIVE NOTE Pre-Op Diagnosis duodenal perforation Post-Op Diagnosis same Procedure Performed CT abdominal drain Surgeon Hmmel Anesthesia Type: Conscious Sedation Specimens Obtained 20cc thin serous fluid Findings 12F drain PHYLLIS RANGEL MD May 15, 2019 14:43
--- NOTE | 2019-05-15 15:01 | EKG ---
[facility] [address] [place] [address] Test Date: 2019-05-15 Test Time: 15:54:46 Pat Name: MORIAH BARRAGAN Department: Room: 410 Gender: M Cream Beater: RONAL : 1945 Requested By: JAZMINE COLLINS Order Number: [id number] Reading MD: Measurements Intervals [place] Rate: 102 P: 56 MN: 174 QRS: -62 QRSD: 132 T: 63 QT: 352 QTc: 463 Interpretive Statements SINUS TACHYCARDIA ABNORMAL LEFT AXIS DEVIATION LEFT ANTERIOR FASCICULAR BLOCK RIGHT BUNDLE BRANCH BLOCK BIFASCICULAR BLOCK RVH WITH REPOLARIZATION ABNORMALITY ABNORMAL ECG RI6.01 No previous ECG available for comparison
--- NOTE | 2019-05-15 15:10 | RAD ---
Procedure: CT-guided abdominal drain placement Clinical Indication: Adult with duodenal perforation and midline abdominal fluid collection Sedation: Conscious sedation was administered with a total intraprocedural [id number] time of 18 minutes. The patient was monitored by a qualified independent observer throughout the time of sedation. Please refer to the medical record for exact doses of medications utilized to achieve moderate sedation. Antibiotics: None Sterility: The procedure was performed in its entirety using appropriate elements of sterile technique. Consent: The procedure was explained in its entirety to the patient or the patients designated cordage sales representative by a member of the treatment team, including a discussion of the risks, benefits and commonly accepted alternatives to the procedure, as well as the expected consequences of no therapy whatsoever. Discussion of the risks included, but was not limited to, those that are most frequent and those that are rare but possibly severe or life-threatening, as well as the possibility of unforeseen complications. Technique and Findings: Following informed consent, the patient was prepped and draped in the usual sterile fashion. Preliminary CT scan of the area of interest was performed. 1% lidocaine was used to achieve local anesthesia. A small dermatotomy was made. Under periodic CT surveillance, a 19-gauge needle guide was advanced towards the fluid collection and exchanged over a wire for serial dilators followed by a 12 [place] pigtail drainage catheter. This catheter was sutured to the skin and placed to bulb suction after removal of 20 cc of slightly turbid thin yellow fluid which was sent for microbiologic analysis. Complications: No immediate Impression: 1. CT-guided abdominal drain placement as described. PQRS Compliance Statement: One or more of the following individualized dose reduction techniques were utilized for this examination: 1. Automated exposure control 2. Adjustment of the mA and/or kV according to patient size 3. Use of iterative reconstruction technique
--- NOTE | 2019-05-15 16:36 | PDOC2 ---
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 He was then noted with duodenal perforation and had an exploratory laparotomy with repair. Further imaging revealed possible persistent perforation with midline abdominal fluid collection and postoperatively a drain was placed. Further care warranted prompting transfer to ICU. Consult is for cardiac management. By hx he has been seen by item processor at [facility]. He actually had RTSA and was treated with bid dosing of ASA postopertaively for about 1 week. He tolerated this procedure. He also had a stress test approximately in the last 3-4 weeks likely prior to his TSA. He was told that his stress test was OK and based from his recent arthroplasty he has good cardiac reserve. He has not been having cardiac symptoms and tolerated his emergent abdominal surgery as well. No arrhythmias so far. PAST MEDICAL HISTORY Cardiovascular: HTN, Hyperlipidemia Pulmonary: COPD CENTRAL NERVOUS SYSTEM: Other (parkinson? on sinemet) GI: Peptic Ulcer disease Heme/Onc: No pertinent hx Hepatobiliary: No pertinent hx Psych: Anxiety Musculoskeletal: Osteoarthritis Rheumatologic: No pertinent hx Infectious disease: No pertinent hx ENT: No pertinent hx Renal/: Chronic renal insuff Endocrine: Diabetes (2) Dermatology: No pertinent hx PAST SURGICAL HISTORY Past Surgical History: Other (RTSA) FAMILY HISTORY Family History noncontributory SOCIAL HISTORY Smoke: Quit ALCOHOL: none Drugs: None Lives: with Family CURRENT MEDICATIONS CURRENT MEDICATIONS Current Medications Medications (Trade) Dose Ordered Sig/Ventura Route PRN Reason Start Time Stop Time Status Last Admin Dose Admin Lidocaine HCl (Buffered Lidocaine 1%) 4 ml 1X ONCE IJ 05/15/19 14:30 05/15/19 14:38 DC 05/15/19 14:30 Midazolam HCl (Versed) 1 mg 1X ONCE IV 05/15/19 14:30 05/15/19 14:38 DC 05/15/19 14:30 Fentanyl Citrate (Fentanyl 2ml Vial) 50 mcg 1X ONCE IV 05/15/19 14:30 05/15/19 14:38 DC 05/15/19 14:30 ALLERGIES ALLERGIES: Coded Allergies: sulfamethoxazole (Verified Allergy, Severe, Altered Mental Status , 05/08/19) trimethoprim (Verified Allergy, Severe, Altered Mental Status , 05/08/19) Sulfa (Sulfonamide Antibiotics) (Verified Allergy, Intermediate, 05/08/19) ciprofloxacin (Verified Allergy, Intermediate, rash, 05/08/19) codeine (Verified Allergy, Intermediate, Rash, 05/08/19) ROS Review of System 14 point ROS evaluated with pertinent positives noted per HPI PHYSICAL EXAM General: Alert, Oriented X3, Cooperative, No acute distress HEENT: Atraumatic, Mucous membr. moist/pink Lungs: Other (diminished) Heart: Regular rate (SR), Other (distant heart sounds) Abdomen: Other (RUQ abd MACKENZIE with darrk green drain; Surgical dressing D/I. NGT in place) Skin: Other (abdominal surgical incision) Neuro: Normal speech, Sensation intact Psych/Mental Status: Mental status NL, Mood NL MUSCULOSKELETAL: Osteoarthritic changes both hands VITALS/I&O VITALS/I&O: Vital Signs Date Time Temp Pulse Resp B/P (MAP) Pulse Ox O2 Delivery O2 Flow Rate FiO2 05/15/19 15:40 93 Nasal Cannula 2.0 05/15/19 15:39 101.0 101.0 05/15/19 15:16 121/61 (81) 05/15/19 15:00 100 05/15/19 14:46 16 I & O 05/14/19 05/14/19 05/15/19 15:00 23:00 07:00 Output Total 1045 ml 1020 ml 460 ml Balance -1045 ml -1020 ml -460 ml LABS Lab: Laboratory Tests Test 05/15/19 03:30 05/15/19 03:35 05/15/19 06:01 05/15/19 13:21 Sodium Level 137 mmol/L (136-145) Potassium Level 3.9 mmol/L (3.5-5.1) Chloride Level 102 mmol/L (98-107) Carbon Dioxide Level 22 mmol/L (21-32) Anion Gap 13 (6-14) Blood Urea Nitrogen 35 mg/dL (8-26) H Creatinine 1.6 mg/dL (0.7-1.3) H Estimated GFR (Cockcroft-Gault) 42.6 BUN/Creatinine Ratio 22 (6-20) H Glucose Level 280 mg/dL (70-99) H Calcium Level 8.6 mg/dL (8.5-10.1) Phosphorus Level 3.5 mg/dL (2.6-4.7) Magnesium Level 2.0 mg/dL (1.8-2.4) Total Bilirubin 0.5 mg/dL (0.2-1.0) Aspartate Amino Transferase (AST) 29 U/L (15-37) Alanine Aminotransferase (ALT) 47 U/L (16-63) Alkaline Phosphatase 100 U/L (46-116) Total Protein 6.1 g/dL (6.4-8.2) L Albumin 2.0 g/dL (3.4-5.0) L Albumin/Globulin Ratio 0.5 (1.0-1.7) L Triglycerides Level 225 mg/dL (0-150) H White Blood Count 21.1 x10^3/uL (4.0-11.0) H Red Blood Count 3.41 x10^6/uL (4.30-5.70) L Hemoglobin 10.5 g/dL (13.0-17.5) L Hematocrit 32.4 % (39.0-53.0) L Mean Corpuscular Volume 95 fL (79-100) Mean Corpuscular Hemoglobin 31 pg (25-35) Mean Corpuscular Hemoglobin Concent 32 g/dL (31-37) Red Cell Distribution Width 14.1 % (11.5-14.5) Platelet Count 333 x10^3/uL (140-400) Neutrophils (%) (Auto) 89 % (31-73) H Lymphocytes (%) (Auto) 5 % (24-48) L Monocytes (%) (Auto) 5 % (0-9) Eosinophils (%) (Auto) 0 % (0-3) Basophils (%) (Auto) 0 % (0-3) Neutrophils # (Auto) 18.9 x10^3/uL (1.8-7.7) H Lymphocytes # (Auto) 1.1 x10^3/uL (1.0-4.8) Monocytes # (Auto) 1.1 x10^3/uL (0.0-1.1) Eosinophils # (Auto) 0.0 x10^3/uL (0.0-0.7) Basophils # (Auto) 0.1 x10^3/uL (0.0-0.2) Segmented Neutrophils % 83 % (35-66) H Band Neutrophils % 3 % (0-9) Lymphocytes % 8 % (24-48) L Monocytes % 6 % (0-10) Platelet Estimate Adequate (ADEQUATE) Glucose (Fingerstick) 250 mg/dL (70-99) H 248 mg/dL (70-99) H Test 05/15/19 13:30 05/15/19 15:07 Prothrombin Time 16.9 SEC (11.7-14.0) H Prothrombin Time INR 1.4 (0.8-1.1) H Lactic Acid Level 1.1 mmol/L (0.4-2.0) Troponin I Quantitative < 0.017 ng/mL (0.000-0.055) Laboratory Tests 05/15/19 03:35 Laboratory Tests 05/15/19 03:30 ASSESSMENT/PLAN ASSESSMENT/PLAN 1. Duodenal perforation: POD #7 S/P Exlap with repair 2. Possible persistent duodenal perforation 3. Sepsis: worsening leukocytosis with fever 4. COPD 5. GREGG 6. HTN: controlled 7. HLP 10. DM2 Recommendations Recent MPI with reported good result per pt suspected done as preop prior to his successful TSA indicating good cardiac reserve. BP is currently stable and no concerning arrhythmias. No pressors warranted at this time. TTE has been ordered. Monitor rhythm. Supportive care. Continue antibiotic treatment per ID. CELESTINO RIOS MD 05/16/19 2154: CARDIAC CONSULT ASSESSMENT/PLAN ASSESSMENT/PLAN Patient seen and examined 05/15/19. Agree with NUCLEAR POWERPLANT MECHANIC's assessment and plan. Agree with 2D echo to assess LVF Recent MPI without any ischemia Continue post op care per GS Thank you for your consultation MITESH BRYANT APRN May 15, 2019 16:35 CELESTINO RIOS MD May 16, 2019 21:54
--- NOTE | 2019-05-15 19:37 | NUR ---
Patient transferred to ICU around 1600. VS stable. at bedside. 2L NC, BP stable, HR 95-100. NG to LIS. Both MACKENZIE drains functioning. Patient has no fever-- 98.2. Using urinal. Slept for majority of shift-- stated he was comfortable. See VS, assessments.
[2019-05-15] MEDS: SIMVASTATIN 10 MG TABLET PO SCH (21:00)
[2019-05-15] MEDS: INSULIN GLARGINE SYRINGE. SQ SCH (21:58)
[2019-05-15] MEDS ORDERED: TOTAL PARENTERAL NUTRITION 1,424.9987 ML, AMINO ACID 15% 60 GM, DEXTROSE 70 % IN WATER ... IV SCH ×10 (22:00)
[2019-05-16] VITALS (19 sets, daily range): BP systolic 112–160; BP diastolic 7–78
[2019-05-16 05:44] LABS: BASO # 0.1 x10^3/uL (0.0-0.2); BASO % 0 % (0-3); EOS % 0 % (0-3); HEMATOCRIT 28.4 % (39.0-53.0); HEMOGLOBIN 9.3 g/dL (13.0-17.5); LYMPH % 5 % (24-48); MEAN CORPUSCULAR HEMOGLOBIN 31 pg (25-35); MEAN CORPUSCULAR HGB CONC 33 g/dL (31-37); MEAN CORPUSCULAR VOLUME 95 fL (79-100); MONO # 1.1 x10^3/uL (0.0-1.1); MONO % 5 % (0-9); NEUT % 90 % (31-73); PLATELET COUNT 331 x10^3/uL (140-400); RED BLOOD COUNT 2.99 x10^6/uL (4.30-5.70); RED CELL DISTRIBUTION WIDTH 14.4 % (11.5-14.5); WHITE BLOOD COUNT 21.2 x10^3/uL (4.0-11.0)
[2019-05-16 06:20] LABS: ALBUMIN 1.9 g/dL (3.4-5.0); ALBUMIN/GLOBULIN RATIO 0.5 (1.0-1.7); CALCIUM 8.8 mg/dL (8.5-10.1); CREATININE 1.7 mg/dL (0.7-1.3); GFR 39.7; MAGNESIUM 2.3 mg/dL (1.8-2.4); PHOSPHORUS 3.4 mg/dL (2.6-4.7); POTASSIUM 4.1 mmol/L (3.5-5.1); TOTAL BILIRUBIN 0.4 mg/dL (0.2-1.0); TOTAL PROTEIN 6.1 g/dL (6.4-8.2)
[2019-05-16] MEDS: CEFEPIME HCL IV Push 2 GM VIAL. IVP SCH ×3 (06:24→22:06)
[2019-05-16] MEDS: PANTOPRAZOLE 40 MG TABLET.DR. PO SCH (07:30)
[2019-05-16] MEDS: IPRATRPIUM/ALBUTEROL 0.5/2.5MG 3 ML NEBU. NEB SCH ×4 (08:19→21:04)
[2019-05-16] MEDS: BUDESONIDE 0.5 MG/2 ML NEBU. NEB SCH ×2 (08:19→20:00)
--- NOTE | 2019-05-16 08:24 | PDOC ---
Infectious Disease Note Subjective Subjective Better today. no pain hungry Feels dry Cough is less No F/C/S/V/D/SOA/Rash ROS ROS o/w neg Vital Sign Vital Signs Vital Signs Date Time Temp Pulse Resp B/P (MAP) Pulse Ox O2 Delivery O2 Flow Rate FiO2 05/16/19 06:00 93 20 159/71 (100) 93 Nasal Cannula 2.0 05/16/19 04:00 98.5 98.5 Physical Exam PHYSICAL EXAM GENERAL: Laying in bed, alert, NAD - looks better HEENT: Pupils equally round. Oropharynx is clear. NGT NECK: Supple. LUNGS: Clear to auscultation. HEART: S1, S2 regular. ABDOMEN: Obese, soft, mild distension. with hypoactive bowel sounds. Surgical dressings are dry and MACKENZIE drain intact- with continued bilious drainage. New MACKENZIE with serous fluid EXTREMITIES: No gross edema or cyanosis.. Right shoulder incision well-approx stable, clean. SKIN: Warm to touch. No signs of rash. NEUROLOGIC: Alert and oriented x3. Labs Lab Laboratory Tests Test 05/15/19 13:21 05/15/19 13:30 05/15/19 15:07 05/15/19 21:38 Glucose (Fingerstick) 248 mg/dL (70-99) 217 mg/dL (70-99) Prothrombin Time 16.9 SEC (11.7-14.0) Prothromb Time International Ratio 1.4 (0.8-1.1) Lactic Acid Level 1.1 mmol/L (0.4-2.0) Troponin I Quantitative < 0.017 ng/mL (0.000-0.055) Test 05/16/19 05:11 05/16/19 05:15 Glucose (Fingerstick) 317 mg/dL (70-99) White Blood Count 21.2 x10^3/uL (4.0-11.0) Red Blood Count 2.99 x10^6/uL (4.30-5.70) Hemoglobin 9.3 g/dL (13.0-17.5) Hematocrit 28.4 % (39.0-53.0) Mean Corpuscular Volume 95 fL (79-100) Mean Corpuscular Hemoglobin 31 pg (25-35) Mean Corpuscular Hemoglobin Concent 33 g/dL (31-37) Red Cell Distribution Width 14.4 % (11.5-14.5) Platelet Count 331 x10^3/uL (140-400) Neutrophils (%) (Auto) 90 % (31-73) Lymphocytes (%) (Auto) 5 % (24-48) Monocytes (%) (Auto) 5 % (0-9) Eosinophils (%) (Auto) 0 % (0-3) Basophils (%) (Auto) 0 % (0-3) Neutrophils # (Auto) 19.0 x10^3/uL (1.8-7.7) Lymphocytes # (Auto) 1.0 x10^3/uL (1.0-4.8) Monocytes # (Auto) 1.1 x10^3/uL (0.0-1.1) Eosinophils # (Auto) 0.0 x10^3/uL (0.0-0.7) Basophils # (Auto) 0.1 x10^3/uL (0.0-0.2) Sodium Level 140 mmol/L (136-145) Potassium Level 4.1 mmol/L (3.5-5.1) Chloride Level 106 mmol/L (98-107) Carbon Dioxide Level 22 mmol/L (21-32) Anion Gap 12 (6-14) Blood Urea Nitrogen 53 mg/dL (8-26) Creatinine 1.7 mg/dL (0.7-1.3) Estimated GFR (Cockcroft-Gault) 39.7 BUN/Creatinine Ratio 31 (6-20) Glucose Level 345 mg/dL (70-99) Calcium Level 8.8 mg/dL (8.5-10.1) Phosphorus Level 3.4 mg/dL (2.6-4.7) Magnesium Level 2.3 mg/dL (1.8-2.4) Total Bilirubin 0.4 mg/dL (0.2-1.0) Aspartate Amino Transf (AST/SGOT) 31 U/L (15-37) Alanine Aminotransferase (ALT/SGPT) 39 U/L (16-63) Alkaline Phosphatase 97 U/L (46-116) Total Protein 6.1 g/dL (6.4-8.2) Albumin 1.9 g/dL (3.4-5.0) Albumin/Globulin Ratio 0.5 (1.0-1.7) Micro CT Impression: 05/14 1. Extravasation of oral contrast within the right upper quadrant extending from the first portion of the duodenum, concerning for persistent duodenal perforation. Scattered pneumoperitoneum. 2. Increased loculated fluid within the right mid abdomen adjacent to small bowel loops with wall thickening. 3. Increased mesenteric edema and body wall edema. 4. Small right pleural effusion with adjacent atelectasis. 5. Tiny focus of gas within the urinary bladder, likely related to recent instrumentation. Objective Assessment Perforated duodenal ulcer s/p repair, 05/08 no apparent cultures S/p Abd drain placed 05/15 sce to fluid collection Fever - times one post procedure 05/15 - improved now Leukocytosis - stable today - initial Pancytopenia ? inpart reactive Abx allergy: Sulfa and cipro w/ rash Acute respiratory failure, now on venti mask -s/p Bronchoscopy with BAL, 05/09. mucous plugging, culture pending GREGG -mild increase Nonobstructing calculus of the right kidney. Recent right shoulder joint replacement, 05/06 at [facility] Plan of Care Discontinued Zosyn and fluconazole 05/14 Cont Dapto/Cefepime/Flagyl/Micafungin with leukocytosis started 05/14 f/u cultures/labs in am Await further surgical eval D/w nursing YULIANA ONEAL MD May 16, 2019 08:24
[2019-05-16] MEDS: HEPARIN for SUB-Q USE 5,000 UNIT/ML VIAL. SQ SCH ×2 (08:50→21:54)
--- NOTE | 2019-05-16 08:53 | PDOC ---
FABI MASSEY [employer] [employer] 05/16/19 0853: SURGICAL PROGRESS NOTE Subjective resting denies pain Vital Signs Vital Signs Date Time Temp Pulse Resp B/P (MAP) Pulse Ox O2 Delivery O2 Flow Rate FiO2 05/16/19 08:21 94 Nasal Cannula 2.0 05/16/19 06:00 93 20 159/71 (100) 05/16/19 04:00 98.5 98.5 I&O Intake and Output 05/16/19 07:00 Intake Total 672 ml Output Total 3105 ml Balance -2433 ml Intake Oral 0 ml IV Total 672 ml Output Urine Total 950 ml Gastric Drainage Total 425 ml Drainage Total 1730 ml General: Cooperative, No acute distress HEENT: Other (ng in place) Abdomen: Soft, Other (drains in place. brownish drainage) Labs Laboratory Tests Test 05/14/19 08:55 05/14/19 11:54 05/15/19 03:30 05/15/19 03:35 White Blood Count 12.6 x10^3/uL (4.0-11.0) 21.1 x10^3/uL (4.0-11.0) Red Blood Count 3.45 x10^6/uL (4.30-5.70) 3.41 x10^6/uL (4.30-5.70) Hemoglobin 10.8 g/dL (13.0-17.5) 10.5 g/dL (13.0-17.5) Hematocrit 33.0 % (39.0-53.0) 32.4 % (39.0-53.0) Mean Corpuscular Volume 96 fL (79-100) 95 fL (79-100) Mean Corpuscular Hemoglobin 31 pg (25-35) 31 pg (25-35) Mean Corpuscular Hemoglobin Concent 33 g/dL (31-37) 32 g/dL (31-37) Red Cell Distribution Width 14.1 % (11.5-14.5) 14.1 % (11.5-14.5) Platelet Count 304 x10^3/uL (140-400) 333 x10^3/uL (140-400) Neutrophils (%) (Auto) 87 % (31-73) 89 % (31-73) Lymphocytes (%) (Auto) 6 % (24-48) 5 % (24-48) Monocytes (%) (Auto) 6 % (0-9) 5 % (0-9) Eosinophils (%) (Auto) 0 % (0-3) 0 % (0-3) Basophils (%) (Auto) 0 % (0-3) 0 % (0-3) Neutrophils # (Auto) 11.0 x10^3/uL (1.8-7.7) 18.9 x10^3/uL (1.8-7.7) Lymphocytes # (Auto) 0.8 x10^3/uL (1.0-4.8) 1.1 x10^3/uL (1.0-4.8) Monocytes # (Auto) 0.7 x10^3/uL (0.0-1.1) 1.1 x10^3/uL (0.0-1.1) Eosinophils # (Auto) 0.0 x10^3/uL (0.0-0.7) 0.0 x10^3/uL (0.0-0.7) Basophils # (Auto) 0.0 x10^3/uL (0.0-0.2) 0.1 x10^3/uL (0.0-0.2) Sodium Level 138 mmol/L (136-145) 137 mmol/L (136-145) Potassium Level 4.2 mmol/L (3.5-5.1) 3.9 mmol/L (3.5-5.1) Chloride Level 101 mmol/L (98-107) 102 mmol/L (98-107) Carbon Dioxide Level 23 mmol/L (21-32) 22 mmol/L (21-32) Anion Gap 14 (6-14) 13 (6-14) Blood Urea Nitrogen 23 mg/dL (8-26) 35 mg/dL (8-26) Creatinine 1.4 mg/dL (0.7-1.3) 1.6 mg/dL (0.7-1.3) Estimated GFR (Cockcroft-Gault) 49.7 42.6 BUN/Creatinine Ratio 16 (6-20) 22 (6-20) Glucose Level 228 mg/dL (70-99) 280 mg/dL (70-99) Calcium Level 8.7 mg/dL (8.5-10.1) 8.6 mg/dL (8.5-10.1) Total Bilirubin 0.7 mg/dL (0.2-1.0) 0.5 mg/dL (0.2-1.0) Aspartate Amino Transf (AST/SGOT) 53 U/L (15-37) 29 U/L (15-37) Alanine Aminotransferase (ALT/SGPT) 65 U/L (16-63) 47 U/L (16-63) Alkaline Phosphatase 101 U/L (46-116) 100 U/L (46-116) Creatine Kinase 238 U/L (39-308) Total Protein 6.4 g/dL (6.4-8.2) 6.1 g/dL (6.4-8.2) Albumin 2.2 g/dL (3.4-5.0) 2.0 g/dL (3.4-5.0) Albumin/Globulin Ratio 0.5 (1.0-1.7) 0.5 (1.0-1.7) Glucose (Fingerstick) 216 mg/dL (70-99) Phosphorus Level 3.5 mg/dL (2.6-4.7) Magnesium Level 2.0 mg/dL (1.8-2.4) Triglycerides Level 225 mg/dL (0-150) Segmented Neutrophils % 83 % (35-66) Band Neutrophils % 3 % (0-9) Lymphocytes % 8 % (24-48) Monocytes % 6 % (0-10) Platelet Estimate Adequate (ADEQUATE) Test 05/15/19 06:01 05/15/19 13:21 05/15/19 13:30 05/15/19 15:07 Glucose (Fingerstick) 250 mg/dL (70-99) 248 mg/dL (70-99) Prothrombin Time 16.9 SEC (11.7-14.0) Prothromb Time International Ratio 1.4 (0.8-1.1) Lactic Acid Level 1.1 mmol/L (0.4-2.0) Troponin I Quantitative < 0.017 ng/mL (0.000-0.055) Test 05/15/19 21:38 05/16/19 05:11 05/16/19 05:15 Glucose (Fingerstick) 217 mg/dL (70-99) 317 mg/dL (70-99) White Blood Count 21.2 x10^3/uL (4.0-11.0) Red Blood Count 2.99 x10^6/uL (4.30-5.70) Hemoglobin 9.3 g/dL (13.0-17.5) Hematocrit 28.4 % (39.0-53.0) Mean Corpuscular Volume 95 fL (79-100) Mean Corpuscular Hemoglobin 31 pg (25-35) Mean Corpuscular Hemoglobin Concent 33 g/dL (31-37) Red Cell Distribution Width 14.4 % (11.5-14.5) Platelet Count 331 x10^3/uL (140-400) Neutrophils (%) (Auto) 90 % (31-73) Lymphocytes (%) (Auto) 5 % (24-48) Monocytes (%) (Auto) 5 % (0-9) Eosinophils (%) (Auto) 0 % (0-3) Basophils (%) (Auto) 0 % (0-3) Neutrophils # (Auto) 19.0 x10^3/uL (1.8-7.7) Lymphocytes # (Auto) 1.0 x10^3/uL (1.0-4.8) Monocytes # (Auto) 1.1 x10^3/uL (0.0-1.1) Eosinophils # (Auto) 0.0 x10^3/uL (0.0-0.7) Basophils # (Auto) 0.1 x10^3/uL (0.0-0.2) Sodium Level 140 mmol/L (136-145) Potassium Level 4.1 mmol/L (3.5-5.1) Chloride Level 106 mmol/L (98-107) Carbon Dioxide Level 22 mmol/L (21-32) Anion Gap 12 (6-14) Blood Urea Nitrogen 53 mg/dL (8-26) Creatinine 1.7 mg/dL (0.7-1.3) Estimated GFR (Cockcroft-Gault) 39.7 BUN/Creatinine Ratio 31 (6-20) Glucose Level 345 mg/dL (70-99) Calcium Level 8.8 mg/dL (8.5-10.1) Phosphorus Level 3.4 mg/dL (2.6-4.7) Magnesium Level 2.3 mg/dL (1.8-2.4) Total Bilirubin 0.4 mg/dL (0.2-1.0) Aspartate Amino Transf (AST/SGOT) 31 U/L (15-37) Alanine Aminotransferase (ALT/SGPT) 39 U/L (16-63) Alkaline Phosphatase 97 U/L (46-116) Total Protein 6.1 g/dL (6.4-8.2) Albumin 1.9 g/dL (3.4-5.0) Albumin/Globulin Ratio 0.5 (1.0-1.7) Laboratory Tests Test 05/15/19 13:21 05/15/19 13:30 05/15/19 15:07 05/15/19 21:38 Glucose (Fingerstick) 248 mg/dL (70-99) 217 mg/dL (70-99) Prothrombin Time 16.9 SEC (11.7-14.0) Prothromb Time International Ratio 1.4 (0.8-1.1) Lactic Acid Level 1.1 mmol/L (0.4-2.0) Troponin I Quantitative < 0.017 ng/mL (0.000-0.055) Test 05/16/19 05:11 05/16/19 05:15 Glucose (Fingerstick) 317 mg/dL (70-99) White Blood Count 21.2 x10^3/uL (4.0-11.0) Red Blood Count 2.99 x10^6/uL (4.30-5.70) Hemoglobin 9.3 g/dL (13.0-17.5) Hematocrit 28.4 % (39.0-53.0) Mean Corpuscular Volume 95 fL (79-100) Mean Corpuscular Hemoglobin 31 pg (25-35) Mean Corpuscular Hemoglobin Concent 33 g/dL (31-37) Red Cell Distribution Width 14.4 % (11.5-14.5) Platelet Count 331 x10^3/uL (140-400) Neutrophils (%) (Auto) 90 % (31-73) Lymphocytes (%) (Auto) 5 % (24-48) Monocytes (%) (Auto) 5 % (0-9) Eosinophils (%) (Auto) 0 % (0-3) Basophils (%) (Auto) 0 % (0-3) Neutrophils # (Auto) 19.0 x10^3/uL (1.8-7.7) Lymphocytes # (Auto) 1.0 x10^3/uL (1.0-4.8) Monocytes # (Auto) 1.1 x10^3/uL (0.0-1.1) Eosinophils # (Auto) 0.0 x10^3/uL (0.0-0.7) Basophils # (Auto) 0.1 x10^3/uL (0.0-0.2) Sodium Level 140 mmol/L (136-145) Potassium Level 4.1 mmol/L (3.5-5.1) Chloride Level 106 mmol/L (98-107) Carbon Dioxide Level 22 mmol/L (21-32) Anion Gap 12 (6-14) Blood Urea Nitrogen 53 mg/dL (8-26) Creatinine 1.7 mg/dL (0.7-1.3) Estimated GFR (Cockcroft-Gault) 39.7 BUN/Creatinine Ratio 31 (6-20) Glucose Level 345 mg/dL (70-99) Calcium Level 8.8 mg/dL (8.5-10.1) Phosphorus Level 3.4 mg/dL (2.6-4.7) Magnesium Level 2.3 mg/dL (1.8-2.4) Total Bilirubin 0.4 mg/dL (0.2-1.0) Aspartate Amino Transf (AST/SGOT) 31 U/L (15-37) Alanine Aminotransferase (ALT/SGPT) 39 U/L (16-63) Alkaline Phosphatase 97 U/L (46-116) Total Protein 6.1 g/dL (6.4-8.2) Albumin 1.9 g/dL (3.4-5.0) Albumin/Globulin Ratio 0.5 (1.0-1.7) Problem List Problems Medical Problems: (1) Perforated intestine, nontraumatic Status: Acute Assessment/Plan continue drains abx tpn, bowel rest JAZMINE URIBE MD 05/16/19 1217: SURGICAL PROGRESS NOTE Assessment/Plan Patient seen and examined by me resting comfortably in bed easily arousable denies any abdominal pain is only complaint is dry mouth would like to have ice chips. Upper abdomen MACKENZIE drain bilious drainage somewhat decreased. IR placed drain shows serous drainage minimal. NG tube is minimal output. Continue with drains TPN and bowel rest and antibiotics. Agree with Maria assessment and plan FABI MASSEY APRN May 16, 2019 08:53 JAZMINE URIBE MD May 16, 2019 12:17
[2019-05-16] MEDS: LACTOBACILLUS RHAMNOSUS GG 1 CAPSULE. PO SCH ×2 (09:00→21:00)
[2019-05-16] MEDS: VENLAFAXINE XR 37.5 MG CAP.ER.24H. PO SCH (09:00)
[2019-05-16] MEDS: PRIMIDONE 50 MG TABLET PO SCH ×2 (09:00→21:00)
--- NOTE | 2019-05-16 09:15 | CARD ---
MR#: [id number] Date of Study: 05/16/2019 Ordering Physician: JAZMINE COLLINS, Referring Physician: JAZMINE COLLINS Tech: Anne House CARROLL APPROVED REPORT EXAM: Two-dimensional and M-mode echocardiogram with Doppler and color Doppler. Other Information Quality : Technically LimitedHR: 90bpm Rhythm : NSRTechnically limited study due to body habitus & recent surgery. INDICATION Hypertension/HCVD 2D DIMENSIONS RVDd2.9 (2.9-3.5cm)Left Atrium(2D)3.9 (1.6-4.0cm) IVSd1.1 (0.7-1.1cm)Aortic Root(2D)3.6 (2.0-3.7cm) LVDd4.7 (3.9-5.9cm)LVOT Diameter2.2 (1.8-2.4cm) PWd1.3 (0.7-1.1cm)LVDs3.5 (2.5-4.0cm) FS (%) 26.8 %SV54.3 ml LVEF(%)53.0 (>50%) Aortic Valve AoV Peak Antony.129.7cm/sAoV VTI16.4cm AO Peak GR.6.7mmHgLVOT VTI 12.72cm AO Mean GR.4mmHgAVA (VTI)3.00cm2 Mitral Valve MV E Qfuuloii57.4cm/sMV DECEL [id number] MV A Kwpjknhv994.8cm/sE/A Ratio0.5 MV A [id number] TDI Lateral E' P. V9.65cm/sE/Lateral E'5.6 LEFT VENTRICLE The left ventricle is normal size. There is mild concentric left ventricular hypertrophy. The left ve ntricular systolic function is normal. The Ejection Fraction is 55-60%. There is normal LV segmental wall motion. Transmitral Doppler flow pattern is Grade I-abnormal relaxation pattern. RIGHT VENTRICLE The right ventricle is normal size. There is normal right ventricular wall thickness. Right ventricul ar function cannot be assessed due to poor image quality. ATRIA The left atrium size is normal. The right atrium size is normal. The interatrial septum is intact wit h no evidence for an atrial septal defect or patent foramen ovale as noted on 2-D or Doppler imaging. AORTIC VALVE The aortic valve is probably trileaflet. The aortic valve is not well visualized. Doppler and Color F low revealed no significant aortic regurgitation. There is no significant aortic valvular stenosis. MITRAL VALVE Mitral annular calcification is mild. There is no evidence of mitral valve prolapse. There is no mitr al valve stenosis. Doppler and Color Flow revealed no mitral valve regurgitation noted. TRICUSPID VALVE The tricuspid valve is not well visualized. Doppler and Color Flow revealed no tricuspid valve regurg itation noted. There is no tricuspid valve prolapse or vegetation. There is no tricuspid valve stenos is. PULMONIC VALVE The pulmonic valve is not well visualized. GREAT VESSELS The aortic root is normal in size. The ascending aorta is normal in size. The IVC was not visualized. PERICARDIAL EFFUSION There is no evidence of significant pericardial effusion. Critical Notification Critical Value: No <Conclusion> The left ventricular systolic function is normal. The Ejection Fraction is 55-60%. There is normal LV segmental wall motion. Transmitral Doppler flow pattern is Grade I-abnormal relaxation pattern. There is no evidence of significant pericardial effusion. Signed by : Abelino Barcenas, Electronically Approved : 05/16/2019 09:14:27
--- NOTE | 2019-05-16 09:21 | PDOC ---
PROGRESS NOTES Chief Complaint Chief Complaint A/P: s/p perf viscus repair 05/09 05/14 CTExtravasation of oral contrast within the right upper quadrant extending from the first portion of the duodenum, concerning for persistent duodenal perforation. Scattered pneumoperitoneum. Increased loculated fluid within the right mid abdomen adjacent to small bowel loops with wall thickening. Increased mesenteric edema and body wall edema. SEVERE SEPSIS Begin Dapto/Cefepime/Flagyl/Micafungin with leukocytosis and increased MACKENZIE drainage despite abx CT 05/14 with extravasation Severe protein-caloric malnutrition GREGG - likely vasomotor nephropathy Perforated duodenal ulcer - Diagnostic laparoscopy with open laparotomy and closure of duodenal ulcer and Dawood patch 05-09 Small amount of ascites is seen within the abdomen and pelvis HTN, Fair control Acute hypoxemic respiratory failure Acute exacerbation of chronic obstructive pulmonary disease. Tobacco dependence. Recent right shoulder repair Movement disorder NOS - parkinsonian symptoms - will restart meds HLD - restart statin DM 2 insulin req REcent RT shoulder sx (total arthroplasty at [facility]) MEt encepahlopathy sec to medical course Begin Dapto/Cefepime/Flagyl/Micafungin with leukocytosis and increased MACKENZIE drainage despite abx CT REVIEWED consult interventional radiology for evaluation of mid abdominal fluid collection for drainage CONT MACKENZIE drain Extravasation of oral contrast within the right upper quadrant extending from the first portion of the duodenum, concerning for persistent duodenal perforation. Scattered pneumoperitoneum. Contrast is seen in the pelvis. This may be dependent oral contrast that leaked into peritoneal cavity on recent CT 05-15 hypotensive earlier PLAN TRANSFER TO icu, CONSULT CARDIOLOGY, EKG, ECHO, TROPONIN I History of Present Illness History of Present Illness t.o icu after repair of perf DU - will likely need LTAC on discharge INsulin regimen at home is 35 qhs and 15 breakfast and lunch, and 20 units dinner fast acting Metformin hold as creat 1,5 (better than admission, has stabilized) Still some intermittent confusion 05/14 - Status post repair of perforated duodenal ulcer subsequent leak and repair. 05/15 - IR drain placed Hyperglycemia today. Still in ICU PLAN: consult cardiology SSI shift to ACHS and high dose DIet per GS agreeable to SNU and SW is following IV abx still per ID WIll dc once shifted to PO abx, PO intake has picked up and cleared by GS FULL CODE RT shoulder repair c.o [facility] - ff up with their ortho 40 MIN PT EXAM, cc time CHART REVIEW, > 50% OF TIME SPENT WITH EXAM, CHART RE VIEW, PT CARE COORDINATION Vitals Vitals Vital Signs Date Time Temp Pulse Resp B/P (MAP) Pulse Ox O2 Delivery O2 Flow Rate FiO2 05/16/19 08:21 94 Nasal Cannula 2.0 05/16/19 06:00 93 20 159/71 (100) 05/16/19 04:00 98.5 98.5 Physical Exam Physical Exam GENERAL: Laying in bed, alert, NAD - looks better HEENT: Pupils equally round. Oropharynx is clear. NGT NECK: Supple. LUNGS: Clear to auscultation. HEART: S1, S2 regular. ABDOMEN: Obese, soft, mild distension. with hypoactive bowel sounds. Surgical dressings are dry and MACKENZIE drain intact- with continued bilious drainage. New MACKENZIE with serous fluid EXTREMITIES: No gross edema or cyanosis.. Right shoulder incision well-approx stable, clean. SKIN: Warm to touch. No signs of rash. NEUROLOGIC: Alert and oriented x3. General: Cooperative, No acute distress Heart: Regular rate (SR), Other (distant heart sounds) Lungs: Clear, Other (deminished bs) Abdomen: Soft, Other (drains in place. brownish drainage) Extremities: No clubbing, No cyanosis, No edema, Normal pulses, No tenderness/ swelling Skin: Other (abdominal surgical incision) Labs LABS Laboratory Tests Test 05/15/19 13:21 05/15/19 13:30 05/15/19 15:07 05/15/19 21:38 Glucose (Fingerstick) 248 mg/dL (70-99) 217 mg/dL (70-99) Prothrombin Time 16.9 SEC (11.7-14.0) Prothromb Time International Ratio 1.4 (0.8-1.1) Lactic Acid Level 1.1 mmol/L (0.4-2.0) Troponin I Quantitative < 0.017 ng/mL (0.000-0.055) Test 05/16/19 05:11 05/16/19 05:15 Glucose (Fingerstick) 317 mg/dL (70-99) White Blood Count 21.2 x10^3/uL (4.0-11.0) Red Blood Count 2.99 x10^6/uL (4.30-5.70) Hemoglobin 9.3 g/dL (13.0-17.5) Hematocrit 28.4 % (39.0-53.0) Mean Corpuscular Volume 95 fL (79-100) Mean Corpuscular Hemoglobin 31 pg (25-35) Mean Corpuscular Hemoglobin Concent 33 g/dL (31-37) Red Cell Distribution Width 14.4 % (11.5-14.5) Platelet Count 331 x10^3/uL (140-400) Neutrophils (%) (Auto) 90 % (31-73) Lymphocytes (%) (Auto) 5 % (24-48) Monocytes (%) (Auto) 5 % (0-9) Eosinophils (%) (Auto) 0 % (0-3) Basophils (%) (Auto) 0 % (0-3) Neutrophils # (Auto) 19.0 x10^3/uL (1.8-7.7) Lymphocytes # (Auto) 1.0 x10^3/uL (1.0-4.8) Monocytes # (Auto) 1.1 x10^3/uL (0.0-1.1) Eosinophils # (Auto) 0.0 x10^3/uL (0.0-0.7) Basophils # (Auto) 0.1 x10^3/uL (0.0-0.2) Sodium Level 140 mmol/L (136-145) Potassium Level 4.1 mmol/L (3.5-5.1) Chloride Level 106 mmol/L (98-107) Carbon Dioxide Level 22 mmol/L (21-32) Anion Gap 12 (6-14) Blood Urea Nitrogen 53 mg/dL (8-26) Creatinine 1.7 mg/dL (0.7-1.3) Estimated GFR (Cockcroft-Gault) 39.7 BUN/Creatinine Ratio 31 (6-20) Glucose Level 345 mg/dL (70-99) Calcium Level 8.8 mg/dL (8.5-10.1) Phosphorus Level 3.4 mg/dL (2.6-4.7) Magnesium Level 2.3 mg/dL (1.8-2.4) Total Bilirubin 0.4 mg/dL (0.2-1.0) Aspartate Amino Transf (AST/SGOT) 31 U/L (15-37) Alanine Aminotransferase (ALT/SGPT) 39 U/L (16-63) Alkaline Phosphatase 97 U/L (46-116) Total Protein 6.1 g/dL (6.4-8.2) Albumin 1.9 g/dL (3.4-5.0) Albumin/Globulin Ratio 0.5 (1.0-1.7) Assessment and Plan Assessmemt and Plan Problems Medical Problems: (1) Perforated intestine, nontraumatic Status: Acute Comment Review of Relevant I have reviewed the following items adriano (where applicable) has been applied. Labs Laboratory Tests Test 05/14/19 11:54 05/15/19 03:30 05/15/19 03:35 05/15/19 06:01 Glucose (Fingerstick) 216 mg/dL (70-99) 250 mg/dL (70-99) Sodium Level 137 mmol/L (136-145) Potassium Level 3.9 mmol/L (3.5-5.1) Chloride Level 102 mmol/L (98-107) Carbon Dioxide Level 22 mmol/L (21-32) Anion Gap 13 (6-14) Blood Urea Nitrogen 35 mg/dL (8-26) Creatinine 1.6 mg/dL (0.7-1.3) Estimated GFR (Cockcroft-Gault) 42.6 BUN/Creatinine Ratio 22 (6-20) Glucose Level 280 mg/dL (70-99) Calcium Level 8.6 mg/dL (8.5-10.1) Phosphorus Level 3.5 mg/dL (2.6-4.7) Magnesium Level 2.0 mg/dL (1.8-2.4) Total Bilirubin 0.5 mg/dL (0.2-1.0) Aspartate Amino Transf (AST/SGOT) 29 U/L (15-37) Alanine Aminotransferase (ALT/SGPT) 47 U/L (16-63) Alkaline Phosphatase 100 U/L (46-116) Total Protein 6.1 g/dL (6.4-8.2) Albumin 2.0 g/dL (3.4-5.0) Albumin/Globulin Ratio 0.5 (1.0-1.7) Triglycerides Level 225 mg/dL (0-150) White Blood Count 21.1 x10^3/uL (4.0-11.0) Red Blood Count 3.41 x10^6/uL (4.30-5.70) Hemoglobin 10.5 g/dL (13.0-17.5) Hematocrit 32.4 % (39.0-53.0) Mean Corpuscular Volume 95 fL (79-100) Mean Corpuscular Hemoglobin 31 pg (25-35) Mean Corpuscular Hemoglobin Concent 32 g/dL (31-37) Red Cell Distribution Width 14.1 % (11.5-14.5) Platelet Count 333 x10^3/uL (140-400) Neutrophils (%) (Auto) 89 % (31-73) Lymphocytes (%) (Auto) 5 % (24-48) Monocytes (%) (Auto) 5 % (0-9) Eosinophils (%) (Auto) 0 % (0-3) Basophils (%) (Auto) 0 % (0-3) Neutrophils # (Auto) 18.9 x10^3/uL (1.8-7.7) Lymphocytes # (Auto) 1.1 x10^3/uL (1.0-4.8) Monocytes # (Auto) 1.1 x10^3/uL (0.0-1.1) Eosinophils # (Auto) 0.0 x10^3/uL (0.0-0.7) Basophils # (Auto) 0.1 x10^3/uL (0.0-0.2) Segmented Neutrophils % 83 % (35-66) Band Neutrophils % 3 % (0-9) Lymphocytes % 8 % (24-48) Monocytes % 6 % (0-10) Platelet Estimate Adequate (ADEQUATE) Test 05/15/19 13:21 05/15/19 13:30 05/15/19 15:07 05/15/19 21:38 Glucose (Fingerstick) 248 mg/dL (70-99) 217 mg/dL (70-99) Prothrombin Time 16.9 SEC (11.7-14.0) Prothromb Time International Ratio 1.4 (0.8-1.1) Lactic Acid Level 1.1 mmol/L (0.4-2.0) Troponin I Quantitative < 0.017 ng/mL (0.000-0.055) Test 05/16/19 05:11 05/16/19 05:15 Glucose (Fingerstick) 317 mg/dL (70-99) White Blood Count 21.2 x10^3/uL (4.0-11.0) Red Blood Count 2.99 x10^6/uL (4.30-5.70) Hemoglobin 9.3 g/dL (13.0-17.5) Hematocrit 28.4 % (39.0-53.0) Mean Corpuscular Volume 95 fL (79-100) Mean Corpuscular Hemoglobin 31 pg (25-35) Mean Corpuscular Hemoglobin Concent 33 g/dL (31-37) Red Cell Distribution Width 14.4 % (11.5-14.5) Platelet Count 331 x10^3/uL (140-400) Neutrophils (%) (Auto) 90 % (31-73) Lymphocytes (%) (Auto) 5 % (24-48) Monocytes (%) (Auto) 5 % (0-9) Eosinophils (%) (Auto) 0 % (0-3) Basophils (%) (Auto) 0 % (0-3) Neutrophils # (Auto) 19.0 x10^3/uL (1.8-7.7) Lymphocytes # (Auto) 1.0 x10^3/uL (1.0-4.8) Monocytes # (Auto) 1.1 x10^3/uL (0.0-1.1) Eosinophils # (Auto) 0.0 x10^3/uL (0.0-0.7) Basophils # (Auto) 0.1 x10^3/uL (0.0-0.2) Sodium Level 140 mmol/L (136-145) Potassium Level 4.1 mmol/L (3.5-5.1) Chloride Level 106 mmol/L (98-107) Carbon Dioxide Level 22 mmol/L (21-32) Anion Gap 12 (6-14) Blood Urea Nitrogen 53 mg/dL (8-26) Creatinine 1.7 mg/dL (0.7-1.3) Estimated GFR (Cockcroft-Gault) 39.7 BUN/Creatinine Ratio 31 (6-20) Glucose Level 345 mg/dL (70-99) Calcium Level 8.8 mg/dL (8.5-10.1) Phosphorus Level 3.4 mg/dL (2.6-4.7) Magnesium Level 2.3 mg/dL (1.8-2.4) Total Bilirubin 0.4 mg/dL (0.2-1.0) Aspartate Amino Transf (AST/SGOT) 31 U/L (15-37) Alanine Aminotransferase (ALT/SGPT) 39 U/L (16-63) Alkaline Phosphatase 97 U/L (46-116) Total Protein 6.1 g/dL (6.4-8.2) Albumin 1.9 g/dL (3.4-5.0) Albumin/Globulin Ratio 0.5 (1.0-1.7) Laboratory Tests Test 05/15/19 13:21 05/15/19 13:30 05/15/19 15:07 05/15/19 21:38 Glucose (Fingerstick) 248 mg/dL (70-99) 217 mg/dL (70-99) Prothrombin Time 16.9 SEC (11.7-14.0) Prothromb Time International Ratio 1.4 (0.8-1.1) Lactic Acid Level 1.1 mmol/L (0.4-2.0) Troponin I Quantitative < 0.017 ng/mL (0.000-0.055) Test 05/16/19 05:11 05/16/19 05:15 Glucose (Fingerstick) 317 mg/dL (70-99) White Blood Count 21.2 x10^3/uL (4.0-11.0) Red Blood Count 2.99 x10^6/uL (4.30-5.70) Hemoglobin 9.3 g/dL (13.0-17.5) Hematocrit 28.4 % (39.0-53.0) Mean Corpuscular Volume 95 fL (79-100) Mean Corpuscular Hemoglobin 31 pg (25-35) Mean Corpuscular Hemoglobin Concent 33 g/dL (31-37) Red Cell Distribution Width 14.4 % (11.5-14.5) Platelet Count 331 x10^3/uL (140-400) Neutrophils (%) (Auto) 90 % (31-73) Lymphocytes (%) (Auto) 5 % (24-48) Monocytes (%) (Auto) 5 % (0-9) Eosinophils (%) (Auto) 0 % (0-3) Basophils (%) (Auto) 0 % (0-3) Neutrophils # (Auto) 19.0 x10^3/uL (1.8-7.7) Lymphocytes # (Auto) 1.0 x10^3/uL (1.0-4.8) Monocytes # (Auto) 1.1 x10^3/uL (0.0-1.1) Eosinophils # (Auto) 0.0 x10^3/uL (0.0-0.7) Basophils # (Auto) 0.1 x10^3/uL (0.0-0.2) Sodium Level 140 mmol/L (136-145) Potassium Level 4.1 mmol/L (3.5-5.1) Chloride Level 106 mmol/L (98-107) Carbon Dioxide Level 22 mmol/L (21-32) Anion Gap 12 (6-14) Blood Urea Nitrogen 53 mg/dL (8-26) Creatinine 1.7 mg/dL (0.7-1.3) Estimated GFR (Cockcroft-Gault) 39.7 BUN/Creatinine Ratio 31 (6-20) Glucose Level 345 mg/dL (70-99) Calcium Level 8.8 mg/dL (8.5-10.1) Phosphorus Level 3.4 mg/dL (2.6-4.7) Magnesium Level 2.3 mg/dL (1.8-2.4) Total Bilirubin 0.4 mg/dL (0.2-1.0) Aspartate Amino Transf (AST/SGOT) 31 U/L (15-37) Alanine Aminotransferase (ALT/SGPT) 39 U/L (16-63) Alkaline Phosphatase 97 U/L (46-116) Total Protein 6.1 g/dL (6.4-8.2) Albumin 1.9 g/dL (3.4-5.0) Albumin/Globulin Ratio 0.5 (1.0-1.7) Medications Current Medications Fentanyl Citrate (Fentanyl 2ml Vial) 50 mcg PRN Q15MIN PRN IV PAIN GREATER THAN 3/10 Last administered on 05/08/19at 19:27; Start 05/08/19 at 16:30; Stop 04/16 11/01 at 21:00; Status DC Sodium Chloride 1,000 ml @ 250 mls/hr Q4H IV Last administered on 05/08/19at 16:54; Start 05/08/19 at 16:19; Stop 05/08/19 at 20:18; Status DC Metoclopramide HCl (Reglan Vial) 10 mg 1X ONCE IVP Last administered on 05/08/19at 16:51; Start 05/08/19 at 17:00; Stop 05/08/19 at 17:01; Status DC Diphenhydramine HCl (Benadryl) 25 mg 1X ONCE IVP Last administered on 05/08/19at 16:51; Start 05/08/19 at 17:00; Stop 05/08/19 at 17:01; Status DC Iohexol (Omnipaque 350 Mg/ml) 90 ml 1X ONCE IV Last administered on 05/08/19at 17:45; Start 05/08/19 at 17:30; Stop 05/08/19 at 17:31; Status DC Info (CONTRAST GIVEN -- Rx MONITORING) 1 each PRN DAILY PRN MC SEE COMMENTS; Start 05/08/19 at 17:30; Stop 05/10/19 at 17:29; Status DC Hydromorphone HCl (Dilaudid) 1 mg 1X ONCE IV Last administered on 05/08/19at 18:23; Start 05/08/19 at 18:30; Stop 05/08/19 at 18:31; Status DC Piperacillin Sod/ Tazobactam Sod 3.375 gm/Sodium Chloride 50 ml @ 100 mls/hr 1X ONCE IV Last administered on 05/08/19at 19:06; Start 05/08/19 at 19:00; Stop 05/08/19 at 19:29; Status DC Sodium Chloride 1,000 ml @ 1,000 mls/hr 1X ONCE IV Last administered on 05/08/19at 19:06; Start 05/08/19 at 19:00; Stop 05/08/19 at 19:59; Status DC Ondansetron HCl (Zofran) 4 mg STK-MED ONCE .ROUTE ; Start 05/08/19 at 19:34; Stop 05/08/19 at 19:34; Status DC Propofol 20 ml @ As Directed STK-MED ONCE IV ; Start 05/08/19 at 19:34; Stop 05/08/19 at 19:34; Status DC Lidocaine HCl (Lidocaine Pf 2% Vial) 5 ml STK-MED ONCE .ROUTE ; Start 05/08/19 at 19:34; Stop 05/08/19 at 19:34; Status DC Dexamethasone Sodium Phosphate (Decadron) 4 mg STK-MED ONCE .ROUTE ; Start 05/08/19 at 19:34; Stop 05/08/19 at 19:34; Status DC Fentanyl Citrate (Fentanyl 2ml Vial) 100 mcg STK-MED ONCE .ROUTE ; Start 05/08/19 at 19:34; Stop 05/08/19 at 19:34; Status DC Succinylcholine Chloride (Anectine) 200 mg STK-MED ONCE .ROUTE ; Start 05/08/19 at 19:34; Stop 05/08/19 at 19:34; Status DC Rocuronium [place] (Zemuron) 50 mg STK-MED ONCE .ROUTE ; Start 05/08/19 at 19:34; Stop 05/08/19 at 19:34; Status DC Ondansetron HCl (Zofran) 4 mg PRN Q6HRS PRN IV NAUSEA/VOMITING; Start 05/08/19 at 19:45; Stop 05/08/19 at 23:59; Status DC Fentanyl Citrate (Fentanyl 2ml Vial) 25 mcg PRN Q5MIN PRN IV MILD PAIN 1-3; Start 05/08/19 at 19:45; Stop 05/08/19 at 23:59; Status DC Fentanyl Citrate (Fentanyl 2ml Vial) 50 mcg PRN Q5MIN PRN IV MODERATE TO SEVERE PAIN; Start 05/08/19 at 19:45; Stop 05/08/19 at 23:59; Status DC Ringer's Solution 1,000 ml @ 30 mls/hr Q24H IV Last administered on 05/08/19at 23:06; Start 05/08/19 at 20:00; Stop 05/09/19 at 01:00; Status DC Prochlorperazine Edisylate (Compazine) 5 mg PACU PRN PRN IV NAUSEA, MRX1; Start 05/08/19 at 19:45; Stop 05/08/19 at 23:59; Status DC Insulin Human Lispro (HumaLOG VIAL for OP,RR ONLY) 0-10 units PRN Q1HR PRN SQ PER PROTOCOL; Start 05/08/19 at 19:45; Stop 05/08/19 at 23:59; Status DC Bupivacaine HCl/ Epinephrine Bitart (Sensorcaine-Epi 0.25%-1:[id number] Mpf) 30 ml 1X ONCE INJ Last administered on 05/08/19at 20:32; Start 05/08/19 at 20:00; Stop 05/08/19 at 20:01; Status DC Ketamine HCl (Ketamine) 50 mg STK-MED ONCE .ROUTE ; Start 05/08/19 at 20:12; Stop 05/08/19 at 20:12; Status DC Phenylephrine HCl (PHENYLEPHRINE in 0.9% NACL PF) 1 mg STK-MED ONCE IV ; Start 05/08/19 at 20:33; Stop 05/08/19 at 20:33; Status DC Ephedrine Sulfate (ePHEDrine PF IN SALINE SYRINGE) 50 mg STK-MED ONCE IV ; Start 05/08/19 at 20:36; Stop 05/08/19 at 20:36; Status DC Albumin Human 500 ml @ As Directed STK-MED ONCE IV ; Start 05/08/19 at 20:55; Stop 05/08/19 at 20:55; Status DC Glycopyrrolate (Robinul) 1 mg STK-MED ONCE .ROUTE ; Start 05/08/19 at 21:27; Stop 05/08/19 at 21:27; Status DC Neostigmine Methylsulfate (Neostigmine Methylsulfate) 5 mg STK-MED ONCE .ROUTE ; Start 05/08/19 at 21:27; Stop 05/08/19 at 21:27; Status DC Bupivacaine HCl (Sensorcaine Mpf 0.5%) 30 ml STK-MED ONCE .ROUTE ; Start 05/08/19 at 21:39; Stop 05/08/19 at 21:39; Status DC Epinephrine HCl (Adrenalin) 1 mg STK-MED ONCE .ROUTE ; Start 05/08/19 at 21:39; Stop 05/08/19 at 21:39; Status DC Sevoflurane (Ultane) 60 ml STK-MED ONCE IH ; Start 05/08/19 at 21:44; Stop 05/08/19 at 21:44; Status DC Sodium Chloride 1,000 ml @ 125 mls/hr Q8H IV Last administered on 05/08/19at 23:45; Start 05/08/19 at 22:00; Stop 05/09/19 at 15:21; Status DC Ondansetron HCl (Zofran) 4 mg PRN Q6HRS PRN IVP NAUSEA/VOMITING 1ST CHOICE; Start 05/08/19 at 22:00 Fluconazole/ Sodium Chloride 100 ml @ 100 mls/hr Q24H IV Last administered on 05/13/19at 21:14; Start 05/08/19 at 22:00; Stop 05/14/19 at 10:28; Status DC Hydromorphone HCl (Dilaudid) 1 mg PRN Q4HRS PRN IV SEVERE PAIN 7-10 Last administered on 05/15/19at 20:34; Start 05/08/19 at 22:00 Piperacillin Sod/ Tazobactam Sod 3.375 gm/Sodium Chloride 50 ml @ 100 mls/hr Q6HRS IV Last administered on 05/14/19at 05:49; Start 05/09/19 at 00:00; Stop 05/14/19 at 10:28; Status DC Pantoprazole Sodium (PROTONIX VIAL for IV PUSH) 40 mg DAILY IVP Last administered on 05/11/19at 09:43; Start 05/09/19 at 09:00; Stop 05/12/19 at 08:30; Status DC Insulin Human Regular 150 unit/ Sodium Chloride 151.5 ml @ 0 mls/hr CONT PRN IV SEE I/O RECORD; Start 05/08/19 at 23:00; Status UNV Insulin Human Regular 150 unit/ Sodium Chloride 151.5 ml @ 0 mls/hr CONT PRN IV SEE I/O RECORD Last administered on 05/08/19at 23:03; Start 05/08/19 at 23:00; Stop 05/12/19 at 13:06; Status DC Dextrose (Dextrose 50%-Water Syringe) 12.5 gm PRN Q15MIN PRN IV LOW BLOOD SUGAR; Start 05/08/19 at 23:00 Dextrose 250 ml PRN Q15MIN PRN IV LOW BLOOD SUGAR; Start 05/08/19 at 23:00 Albumin Human 500 ml @ 250 mls/hr 1X ONCE IV Last administered on 05/09/19at 00:10; Start 05/09/19 at 00:30; Stop 05/09/19 at 02:29; Status DC Norepinephrine Bitartrate 250 ml @ 20.156 mls/ hr CONT PRN IV SEE I/O RECORD; Start 05/09/19 at 00:00; Stop 05/12/19 at 13:06; Status DC Dextrose/Sodium Chloride 1,000 ml @ 150 mls/hr Q6H40M IV Last administered on 05/09/19at 12:28; Start 05/09/19 at 08:45; Stop 05/09/19 at 18:30; Status DC Sodium Chloride 500 ml @ 500 mls/hr PRN Q2HR PRN IV SEE COMMENTS; Start 05/09/19 at 11:15 Sodium Chloride 1,000 ml @ 2,190 mls/hr Q28M IV ; Start 05/09/19 at 12:39; Stop 05/09/19 at 13:39; Status DC Sodium Chloride 500 ml @ 1,000 mls/hr PRN Q30MIN PRN IV SEE COMMENTS; Start 05/09/19 at 12:45; Stop 05/09/19 at 12:50; Status DC Norepinephrine Bitartrate 250 ml @ 19.688 mls/ hr CONT PRN IV SEE I/O RECORD; Start 05/09/19 at 12:45; Status Cancel Dobutamine HCl/ Dextrose 250 ml @ 15.75 mls/ hr CONT PRN IV SEE I/O RECORD; Start 05/09/19 at 12:45; Stop 05/12/19 at 13:06; Status DC Insulin Human Lispro (HumaLOG) 0-7 UNITS TIDWMEALS SQ ; Start 05/09/19 at 17:00; Stop 05/09/19 at 19:36; Status DC Dextrose (Dextrose 50%-Water Syringe) 12.5 gm PRN Q15MIN PRN IV SEE COMMENTS; Start 05/09/19 at 15:30; Status UNV Sodium Chloride 1,000 ml @ 60 mls/hr [id number] IV Last administered on 05/10/19at 16:47; Start 05/09/19 at 15:30; Stop 05/12/19 at 10:57; Status DC Insulin Human Lispro (HumaLOG) 0-7 UNITS Q6HRS SQ Last administered on 05/13/19at 05:50; Start 05/10/19 at 00:00; Stop 05/13/19 at 08:27; Status DC Albuterol/ Ipratropium (Duoneb) 3 ml RTQID NEB Last administered on 05/16/19at 08:19; Start 05/10/19 at 08:00 Budesonide (Pulmicort) 0.5 mg RTBID NEB Last administered on 05/16/19at 08:19; Start 05/10/19 at 08:00 Heparin Sodium (Porcine) (Heparin Sodium) 5,000 unit BID SQ Last administered on 05/16/19at 08:50; Start 05/11/19 at 10:00 Phenol (Chloraseptic) 1 spray PRN Q2HR PRN PO SORE THROAT Last administered on 05/11/19at 13:12; Start 05/11/19 at 11:30 Multi-Ingredient Ointment (Analgesic [place]) 1 jazlyn PRN QID PRN TP MUSCLE PAIN; Start 05/11/19 at 11:30 Amino Acids/ Glycerin/ Electrolytes 1,000 ml @ 80 mls/hr [id number] IV Last administered on 05/15/19at 05:59; Start 05/11/19 at 12:00; Stop 05/15/19 at 21:59; Status DC Hydralazine HCl (Apresoline Inj) 10 mg PRN Q4HRS PRN IVP ELEVATED BP, SEE COMMENTS; Start 05/11/19 at 11:45 Pantoprazole Sodium (Protonix) 40 mg DAILYAC PO Last administered on 05/14/19at 06:04; Start 05/12/19 at 09:00 Carbidopa/Levodopa (Sinemet 25/100) 1 tab TID PO ; Start 05/12/19 at 14:00; Stop 05/12/19 at 13:40; Status DC Lisinopril (Prinivil) 10 mg DAILY PO Last administered on 05/14/19at 09:14; Start 05/13/19 at 09:00 Simvastatin (Zocor) 10 mg QHS PO Last administered on 05/14/19at 21:08; Start 05/12/19 at 21:00 Venlafaxine HCl (Effexor) 75 mg DAILY PO Last administered on 05/12/19at 13:34; Start 05/12/19 at 13:30; Stop 05/12/19 at 14:20; Status DC Primidone (Mysoline) 50 mg DAILY PO ; Start 05/12/19 at 13:45; Stop 05/12/19 at 14:27; Status DC Insulin Glargine (Lantus Syringe) 15 unit QHS SQ Last administered on 05/15/19at 21:58; Start 05/12/19 at 21:00 Venlafaxine HCl (Effexor Xr) 75 mg DAILY PO Last administered on 05/14/19 09:13; Start 05/13/19 at 09:00 Lactobacillus Rhamnosus (Culturelle) 1 cap BID PO Last administered on 05/14/19at 21:08; Start 05/12/19 at 21:00 Primidone (Mysoline) 25 mg BID PO Last administered on 05/14/19at 21:08; Start 05/12/19 at 14:30 Gabapentin (Neurontin) 300 mg PRN QHS PRN PO NEUROPATHIC PAIN Last administered on 05/12/19at 20:53; Start 05/12/19 at 17:45 Acetaminophen (Tylenol) 500 mg PRN Q6HRS PRN PO MILD PAIN / TEMP; Start 05/13/19 at 08:30 Tramadol HCl (Ultram) 50 mg PRN Q6HRS PRN PO PAIN MOD TO SEV Last administered on 05/14/19at 04:27; Start 05/13/19 at 08:30 Clonidine HCl (Catapres) 0.1 mg PRN Q1HR PRN PO HYPERTENSION; Start 05/13/19 at 08:30 Ondansetron HCl (Zofran) 4 mg PRN Q6HRS PRN IVP NAUSEA/VOMITING; Start 05/13/19 at 08:30; Status UNV Venlafaxine HCl (Effexor Xr) 37.5 mg BID PO ; Start 05/13/19 at 09:00; Stop 05/13/19 at 08:33; Status DC Iohexol (Omnipaque 240 Mg/ml) 30 ml 1X ONCE PO Last administered on 05/14/19at 08:45; Start 05/14/19 at 08:45; Stop 05/14/19 at 08:48; Status DC Iohexol (Omnipaque 300 Mg/ml) 60 ml 1X ONCE IV Last administered on 05/14/19at 08:45; Start 05/14/19 at 08:45; Stop 05/14/19 at 08:48; Status DC Info (CONTRAST GIVEN -- Rx MONITORING) 1 each PRN DAILY PRN MC SEE COMMENTS; Start 05/14/19 at 09:00; Stop 05/16/19 at 08:59; Status DC Daptomycin 570 mg/ Sodium Chloride 50 ml @ 100 mls/hr Q24H IV Last administered on 05/15/19at 12:55; Start 05/14/19 at 11:30 Micafungin Sodium 100 mg/Dextrose 100 ml @ 100 mls/hr Q24H IV Last administered on 05/15/19at 11:43; Start 05/14/19 at 11:00 Cefepime HCl (Maxipime) 2 gm Q8HRS IVP Last administered on 05/16/19at 06:24; Start 05/14/19 at 12:00 Metronidazole 100 ml @ 100 mls/hr Q8HRS IV Last administered on 05/16/19at 06:24; Start 05/14/19 at 14:00 Lidocaine HCl (Buffered Lidocaine 1%) 3 ml STK-MED ONCE .ROUTE ; Start 05/14/19 at 12:43; Stop 05/14/19 at 12:44; Status DC Lidocaine HCl (Buffered Lidocaine 1%) 3 ml 1X ONCE IJ Last administered on 05/14/19at 13:14; Start 05/14/19 at 13:00; Stop 05/14/19 at 13:02; Status DC Info (Tpn Per Pharmacy) 1 each PRN DAILY PRN MC SEE COMMENTS Last administered on 05/15/19at 14:34; Start 05/14/19 at 16:00 Sodium Chloride 90 meq/Potassium Chloride 50 meq/ Potassium Phosphate 13.6 mmol/Magnesium Sulfate 10 meq/ Calcium Gluconate 10 meq/ Multivitamins 10 ml/Chromium/ Copper/Manganese/ Seleni/Zn 1 ml/ Total Parenteral Nutrition/Amino Acids/Dextrose/ Fat Emulsion Intravenous 1,512 ml @ 63 mls/hr TPN CONT IV Last administered on 05/15/19at 21:58; Start 05/15/19 at 22:00; Stop 05/16/19 at 21:59 Lidocaine HCl (Buffered Lidocaine 1%) 3 ml STK-MED ONCE .ROUTE ; Start 05/15/19 at 13:19; Stop 05/15/19 at 13:19; Status DC Midazolam HCl (Versed) 2 mg STK-MED ONCE .ROUTE ; Start 05/15/19 at 13:47; Stop 05/15/19 at 13:47; Status DC Fentanyl Citrate (Fentanyl 2ml Vial) 100 mcg STK-MED ONCE .ROUTE ; Start 05/15/19 at 13:47; Stop 05/15/19 at 13:47; Status DC Flumazenil (Romazicon) 0.5 mg STK-MED ONCE IV ; Start 05/15/19 at 13:47; Stop 05/15/19 at 13:47; Status DC Naloxone HCl (Narcan) 0.4 mg STK-MED ONCE .ROUTE ; Start 05/15/19 at 13:47; Stop 05/15/19 at 13:47; Status DC Lidocaine HCl (Buffered Lidocaine 1%) 4 ml 1X ONCE IJ Last administered on 05/15/19at 14:30; Start 05/15/19 at 14:30; Stop 05/15/19 at 14:38; Status DC Midazolam HCl (Versed) 1 mg 1X ONCE IV Last administered on 05/15/19at 14:30; Start 05/15/19 at 14:30; Stop 05/15/19 at 14:38; Status DC Fentanyl Citrate (Fentanyl 2ml Vial) 50 mcg 1X ONCE IV Last administered on 05/15/19at 14:30; Start 05/15/19 at 14:30; Stop 05/15/19 at 14:38; Status DC Active Scripts Active Reported Venlafaxine Hcl Er (Venlafaxine Hcl) 75 Mg Cap.er.24h 75 Mg PO DAILY Simvastatin 10 Mg Tablet 10 Mg PO DAILY Metformin Hcl 1,000 Mg Tablet 1,000 Mg PO BIDWMEALS Meloxicam 15 Mg Tablet Unknown Dose PO DAILY Lisinopril 10 Mg Tablet Unknown Dose PO DAILY Humalog (Insulin Lispro) 100 Unit/1 Ml Cartridge 100 Unit SQ Sinemet 25-100 Mg Tablet (Carbidopa/Levodopa) 1 Each Tablet 1 Tab PO TID Vitals/I & O Vital Sign - Last 24 Hours 05/15/19 05/15/19 05/15/19 05/15/19 11:00 11:41 14:04 14:14 Temp 98.1 98.1 Pulse 96 104 105 Resp 16 16 B/P (MAP) 127/69 (88) Pulse Ox 92 92 91 O2 Delivery Room Air Room Air Nasal Cannula Nasal Cannula O2 Flow Rate 2.0 2.0 05/15/19 05/15/19 05/15/19 05/15/19 14:16 14:20 14:26 14:34 Pulse 104 101 104 92 Resp 20 22 22 Pulse Ox 93 93 94 92 O2 Delivery Nasal Cannula Nasal Cannula Nasal Cannula Nasal Cannula O2 Flow Rate 4.0 4.0 4.0 2.0 05/15/19 05/15/19 05/15/19 05/15/19 14:46 15:00 15:16 15:39 Temp 98.4 101.0 98.4 101.0 Pulse 104 100 Resp 16 B/P (MAP) 136/75 (95) 131/66 (87) 121/61 (81) Pulse Ox 91 91 92 O2 Delivery Nasal Cannula Nasal Cannula Nasal Cannula O2 Flow Rate 2.0 2.0 2.0 05/15/19 05/15/19 05/15/19 05/15/19 15:40 16:00 17:00 17:30 Temp 98.2 98.2 Pulse 98 94 Resp 19 20 B/P (MAP) 113/71 (85) 126/69 (88) Pulse Ox 93 90 93 O2 Delivery Nasal Cannula Nasal Cannula Nasal Cannula Nasal Cannula O2 Flow Rate 2.0 2.0 2.0 2.0 05/15/19 05/15/19 05/15/19 05/15/19 18:00 19:00 20:00 20:00 Temp 98.2 98.2 Pulse 95 96 96 Resp 16 17 19 B/P (MAP) 143/73 (96) 137/69 (91) 125/69 (87) Pulse Ox 94 93 93 O2 Delivery Nasal Cannula Nasal Cannula Nasal Cannula Nasal Cannula O2 Flow Rate 2.0 2.0 2.0 2.0 05/15/19 05/15/19 05/15/19 05/15/19 20:34 21:00 21:36 22:00 Pulse 96 92 Resp 18 17 15 17 B/P (MAP) 102/61 (75) 106/68 (81) Pulse Ox 93 93 93 94 O2 Delivery Nasal Cannula Nasal Cannula Nasal Cannula Nasal Cannula O2 Flow Rate 2.0 2.0 2.0 2.0 05/15/19 05/16/19 05/16/19 05/16/19 23:00 00:00 00:00 01:00 Temp 98.2 98.2 Pulse 88 90 92 Resp 14 19 20 B/P (MAP) 114/79 (91) 112/68 (83) 114/67 (83) Pulse Ox 93 92 92 O2 Delivery Nasal Cannula Nasal Cannula Nasal Cannula Nasal Cannula O2 Flow Rate 2.0 2.0 2.0 2.0 05/16/19 05/16/19 05/16/19 05/16/19 02:00 03:00 04:00 04:00 Temp 98.5 98.5 Pulse 90 90 88 Resp 20 20 18 B/P (MAP) 135/72 (93) 147/72 (97) 128/74 (92) Pulse Ox 92 92 92 O2 Delivery Nasal Cannula Nasal Cannula Nasal Cannula Nasal Cannula O2 Flow Rate 2.0 2.0 2.0 2.0 05/16/19 05/16/19 05/16/19 05:00 06:00 08:21 Pulse 90 93 Resp 22 20 B/P (MAP) 136/72 (93) 159/71 (100) Pulse Ox 92 93 94 O2 Delivery Nasal Cannula Nasal Cannula Nasal Cannula O2 Flow Rate 2.0 2.0 2.0 Intake and Output 05/15/19 05/15/19 05/16/19 15:00 23:00 07:00 Intake Total 100 ml 572 ml Output Total 480 ml 1875 ml 750 ml Balance -480 ml -1775 ml -178 ml SHREYA HERRERA MD May 16, 2019 09:21
--- NOTE | 2019-05-16 09:46 | PDOC ---
SUBJECTIVE ROS Transferred to ICU, stable, states mouth feeling dry, No Nausea OBJECTIVE Vital Signs Vital Signs Date Time Temp Pulse Resp B/P (MAP) Pulse Ox O2 Delivery O2 Flow Rate FiO2 05/16/19 08:21 94 Nasal Cannula 2.0 05/16/19 06:00 93 20 159/71 (100) 05/16/19 04:00 98.5 98.5 I & 0 Intake and Output 05/16/19 07:00 Intake Total 672 ml Output Total 3105 ml Balance -2433 ml Intake Oral 0 ml IV Total 672 ml Output Urine Total 950 ml Gastric Drainage Total 425 ml Drainage Total 1730 ml PHYSICAL EXAM Physical Exam Gen NAD HEENT: OM dryish , NG tube Neck supple Lungs: Clear to auscultation Heart: Regular rate, Abdomen: Soft , has MACKENZIE drain Extremities: No edema, Skin: No significant lesion, No rash Neuro: grossly normal - No alcantara DIAGNOSIS/ASSESSMENT Assessment & Plan GREGG - ATN 2/2 to Perf Dudod ulcer/Hypotension /IV Contrast with CTA Non Oliguric , NSAID use for shoulder surgery recently (Meloxicam per home med list ) and ASA Initially Cr peaked at 3.1 -->1.4 , worsening again to 1.7 today Increased MACKENZIE Drainage , Recd IV contrast with CT on 05/14, Monitor for YANIV Supportive care, IVF , strict I/O, monitor Perforated duodenal ulcer with increased drained in MACKENZIE MACKENZIE drain bilious drainage somewhat decreased. IR placed drain shows serous drainage minimal. NG tube is minimal output. HTN- on antihypertensives Hold Lisinopril DM - Per Primary Nephrolithiasis- gives Hx of passing stone few years back CT scan shows Kidney stone, Non obstructing Panyctopenia- wbc Normal, Plat and Hgb low now increasing leukocytosis Anemia - Hgb stable Acute respiratory failure, now on venti mask -s/p Bronchoscopy with BAL, 05/09. mucous plugging, culture pending Recent right shoulder joint replacement, 05/06 at [facility] Discussed with Pt and RN COMMENT/RELEVANT DATA Meds Current Medications Medications (Trade) Dose Ordered Sig/Ventura Start Time Stop Time Status Last Admin Dose Admin Acetaminophen (Tylenol) 500 mg PRN Q6HRS PRN 05/13/19 08:30 Albumin Human 500 ml @ 250 mls/hr 1X ONCE 05/09/19 00:30 05/09/19 02:29 DC 05/09/19 00:10 250 MLS/HR Albuterol/ Ipratropium (Duoneb) 3 ml RTQID 05/10/19 08:00 05/16/19 08:19 3 ML Amino Acids/ Glycerin/ Electrolytes 1,000 ml @ 80 mls/hr [id number] 05/11/19 12:00 05/15/19 21:59 DC 05/15/19 05:59 80 MLS/HR Budesonide (Pulmicort) 0.5 mg RTBID 05/10/19 08:00 05/16/19 08:19 0.5 MG Bupivacaine HCl (Sensorcaine Mpf 0.5%) 30 ml STK-MED ONCE 05/08/19 21:39 05/08/19 21:39 DC Bupivacaine HCl/ Epinephrine Bitart (Sensorcaine-Epi 0.25%-1:[id number] Mpf) 30 ml 1X ONCE 05/08/19 20:00 05/08/19 20:01 DC 05/08/19 20:32 26 ML Carbidopa/Levodopa (Sinemet 25/100) 1 tab TID 05/12/19 14:00 05/12/19 13:40 DC Cefepime HCl (Maxipime) 2 gm Q8HRS 05/14/19 12:00 05/16/19 06:24 2 GM Clonidine HCl (Catapres) 0.1 mg PRN Q1HR PRN 05/13/19 08:30 Daptomycin 570 mg/ Sodium Chloride 50 ml @ 100 mls/hr Q24H 05/14/19 11:30 05/15/19 12:55 100 MLS/HR Dexamethasone Sodium Phosphate (Decadron) 4 mg STK-MED ONCE 05/08/19 19:34 05/08/19 19:34 DC Dextrose (Dextrose 50%-Water Syringe) 12.5 gm PRN Q15MIN PRN 05/09/19 15:30 UNV Dextrose/Sodium Chloride 1,000 ml @ 150 mls/hr Q6H40M 05/09/19 08:45 05/09/19 18:30 DC 05/09/19 12:28 150 MLS/HR Diphenhydramine HCl (Benadryl) 25 mg 1X ONCE 05/08/19 17:00 05/08/19 17:01 DC 05/08/19 16:51 25 MG Dobutamine HCl/ Dextrose 250 ml @ 15.75 mls/ hr CONT PRN 05/09/19 12:45 05/12/19 13:06 DC Ephedrine Sulfate (ePHEDrine PF IN SALINE SYRINGE) 50 mg STK-MED ONCE 05/08/19 20:36 05/08/19 20:36 DC Epinephrine HCl (Adrenalin) 1 mg STK-MED ONCE 05/08/19 21:39 05/08/19 21:39 DC Fentanyl Citrate (Fentanyl 2ml Vial) 50 mcg 1X ONCE 05/15/19 14:30 05/15/19 14:38 DC 05/15/19 14:30 50 MCG Fluconazole/ Sodium Chloride 100 ml @ 100 mls/hr Q24H 05/08/19 22:00 05/14/19 10:28 DC 05/13/19 21:14 100 MLS/HR Flumazenil (Romazicon) 0.5 mg STK-MED ONCE 05/15/19 13:47 05/15/19 13:47 DC Gabapentin (Neurontin) 300 mg PRN QHS PRN 05/12/19 17:45 05/12/19 20:53 300 MG Glycopyrrolate (Robinul) 1 mg STK-MED ONCE 05/08/19 21:27 05/08/19 21:27 DC Heparin Sodium (Porcine) (Heparin Sodium) 5,000 unit BID 05/11/19 10:00 05/16/19 08:50 5,000 UNIT Hydralazine HCl (Apresoline Inj) 10 mg PRN Q4HRS PRN 05/11/19 11:45 Hydromorphone HCl (Dilaudid) 1 mg PRN Q4HRS PRN 05/08/19 22:00 05/15/19 20:34 1 MG Info (CONTRAST GIVEN -- Rx MONITORING) 1 each PRN DAILY PRN 05/14/19 09:00 05/16/19 08:59 DC Info (Tpn Per Pharmacy) 1 each PRN DAILY PRN 05/14/19 16:00 05/15/19 14:34 1 EACH Insulin Glargine (Lantus Syringe) 15 unit QHS 05/12/19 21:00 05/15/19 21:58 15 UNIT Insulin Human Lispro (HumaLOG VIAL for OP,RR ONLY) 0-10 units PRN Q1HR PRN 05/08/19 19:45 05/08/19 23:59 DC Insulin Human Lispro (HumaLOG) 0-7 UNITS Q6HRS 05/10/19 00:00 05/13/19 08:27 DC 05/13/19 05:50 3 UNITS Insulin Human Regular 150 unit/ Sodium Chloride 151.5 ml @ 0 mls/hr CONT PRN 05/08/19 23:00 05/12/19 13:06 DC 05/08/19 23:03 5 MLS/HR Iohexol (Omnipaque 240 Mg/ml) 30 ml 1X ONCE 05/14/19 08:45 05/14/19 08:48 DC 05/14/19 08:45 30 ML Iohexol (Omnipaque 300 Mg/ml) 60 ml 1X ONCE 05/14/19 08:45 05/14/19 08:48 DC 05/14/19 08:45 60 ML Iohexol (Omnipaque 350 Mg/ml) 90 ml 1X ONCE 05/08/19 17:30 05/08/19 17:31 DC 05/08/19 17:45 90 ML Ketamine HCl (Ketamine) 50 mg STK-MED ONCE 05/08/19 20:12 05/08/19 20:12 DC Lactobacillus Rhamnosus (Culturelle) 1 cap BID 05/12/19 21:00 05/14/19 21:08 1 CAP Lidocaine HCl (Buffered Lidocaine 1%) 4 ml 1X ONCE 05/15/19 14:30 05/15/19 14:38 DC 05/15/19 14:30 4 ML Lidocaine HCl (Lidocaine Pf 2% Vial) 5 ml STK-MED ONCE 05/08/19 19:34 05/08/19 19:34 DC Lisinopril (Prinivil) 10 mg DAILY 05/13/19 09:00 05/14/19 09:14 10 MG Metoclopramide HCl (Reglan Vial) 10 mg 1X ONCE 05/08/19 17:00 05/08/19 17:01 DC 05/08/19 16:51 10 MG Metronidazole 100 ml @ 100 mls/hr Q8HRS 05/14/19 14:00 05/16/19 06:24 100 MLS/HR Micafungin Sodium 100 mg/Dextrose 100 ml @ 100 mls/hr Q24H 05/14/19 11:00 05/15/19 11:43 100 MLS/HR Midazolam HCl (Versed) 1 mg 1X ONCE 05/15/19 14:30 05/15/19 14:38 DC 05/15/19 14:30 1 MG Multi-Ingredient Ointment (Analgesic [place]) 1 jazlyn PRN QID PRN 05/11/19 11:30 Naloxone HCl (Narcan) 0.4 mg STK-MED ONCE 05/15/19 13:47 05/15/19 13:47 DC Neostigmine Methylsulfate (Neostigmine Methylsulfate) 5 mg STK-MED ONCE 05/08/19 21:27 05/08/19 21:27 DC Norepinephrine Bitartrate 250 ml @ 19.688 mls/ hr CONT PRN 05/09/19 12:45 Cancel Ondansetron HCl (Zofran) 4 mg PRN Q6HRS PRN 05/13/19 08:30 UNV Pantoprazole Sodium (PROTONIX VIAL for IV PUSH) 40 mg DAILY 05/09/19 09:00 05/12/19 08:30 DC 05/11/19 09:43 40 MG Pantoprazole Sodium (Protonix) 40 mg DAILYAC 05/12/19 09:00 05/14/19 06:04 40 MG Phenol (Chloraseptic) 1 spray PRN Q2HR PRN 05/11/19 11:30 05/11/19 13:12 1 SPRAY Phenylephrine HCl (PHENYLEPHRINE in 0.9% NACL PF) 1 mg STK-MED ONCE 05/08/19 20:33 05/08/19 20:33 DC Piperacillin Sod/ Tazobactam Sod 3.375 gm/Sodium Chloride 50 ml @ 100 mls/hr Q6HRS 05/09/19 00:00 05/14/19 10:28 DC 05/14/19 05:49 100 MLS/HR Primidone (Mysoline) 25 mg BID 05/12/19 14:30 05/14/19 21:08 25 MG Prochlorperazine Edisylate (Compazine) 5 mg PACU PRN PRN 05/08/19 19:45 05/08/19 23:59 DC Propofol 20 ml @ As Directed STK-MED ONCE 05/08/19 19:34 05/08/19 19:34 DC Ringer's Solution 1,000 ml @ 30 mls/hr Q24H 05/08/19 20:00 05/09/19 01:00 DC 05/08/19 23:06 30 MLS/HR Rocuronium [place] (Zemuron) 50 mg STK-MED ONCE 05/08/19 19:34 05/08/19 19:34 DC Sevoflurane (Ultane) 60 ml STK-MED ONCE 05/08/19 21:44 05/08/19 21:44 DC Simvastatin (Zocor) 10 mg QHS 05/12/19 21:00 05/14/19 21:08 10 MG Sodium Chloride 90 meq/Potassium Chloride 50 meq/ Potassium Phosphate 13.6 mmol/Magnesium Sulfate 10 meq/ Calcium Gluconate 10 meq/ Multivitamins 10 ml/Chromium/ Copper/Manganese/ Seleni/Zn 1 ml/ Total Parenteral Nutrition/Amino Acids/Dextrose/ Fat Emulsion Intravenous 1,512 ml @ 63 mls/hr TPN CONT 05/15/19 22:00 05/16/19 21:59 05/15/19 21:58 63 MLS/HR Succinylcholine Chloride (Anectine) 200 mg STK-MED ONCE 05/08/19 19:34 05/08/19 19:34 DC Tramadol HCl (Ultram) 50 mg PRN Q6HRS PRN 05/13/19 08:30 05/14/19 04:27 50 MG Venlafaxine HCl (Effexor Xr) 37.5 mg BID 05/13/19 09:00 05/13/19 08:33 DC Venlafaxine HCl (Effexor) 75 mg DAILY 05/12/19 13:30 05/12/19 14:20 DC 05/12/19 13:34 75 MG Lab Laboratory Tests Test 05/15/19 13:21 05/15/19 13:30 05/15/19 15:07 05/15/19 21:38 Glucose (Fingerstick) 248 mg/dL (70-99) 217 mg/dL (70-99) Prothrombin Time 16.9 SEC (11.7-14.0) Prothromb Time International Ratio 1.4 (0.8-1.1) Lactic Acid Level 1.1 mmol/L (0.4-2.0) Troponin I Quantitative < 0.017 ng/mL (0.000-0.055) Test 05/16/19 05:11 05/16/19 05:15 Glucose (Fingerstick) 317 mg/dL (70-99) White Blood Count 21.2 x10^3/uL (4.0-11.0) Red Blood Count 2.99 x10^6/uL (4.30-5.70) Hemoglobin 9.3 g/dL (13.0-17.5) Hematocrit 28.4 % (39.0-53.0) Mean Corpuscular Volume 95 fL (79-100) Mean Corpuscular Hemoglobin 31 pg (25-35) Mean Corpuscular Hemoglobin Concent 33 g/dL (31-37) Red Cell Distribution Width 14.4 % (11.5-14.5) Platelet Count 331 x10^3/uL (140-400) Neutrophils (%) (Auto) 90 % (31-73) Lymphocytes (%) (Auto) 5 % (24-48) Monocytes (%) (Auto) 5 % (0-9) Eosinophils (%) (Auto) 0 % (0-3) Basophils (%) (Auto) 0 % (0-3) Neutrophils # (Auto) 19.0 x10^3/uL (1.8-7.7) Lymphocytes # (Auto) 1.0 x10^3/uL (1.0-4.8) Monocytes # (Auto) 1.1 x10^3/uL (0.0-1.1) Eosinophils # (Auto) 0.0 x10^3/uL (0.0-0.7) Basophils # (Auto) 0.1 x10^3/uL (0.0-0.2) Sodium Level 140 mmol/L (136-145) Potassium Level 4.1 mmol/L (3.5-5.1) Chloride Level 106 mmol/L (98-107) Carbon Dioxide Level 22 mmol/L (21-32) Anion Gap 12 (6-14) Blood Urea Nitrogen 53 mg/dL (8-26) Creatinine 1.7 mg/dL (0.7-1.3) Estimated GFR (Cockcroft-Gault) 39.7 BUN/Creatinine Ratio 31 (6-20) Glucose Level 345 mg/dL (70-99) Calcium Level 8.8 mg/dL (8.5-10.1) Phosphorus Level 3.4 mg/dL (2.6-4.7) Magnesium Level 2.3 mg/dL (1.8-2.4) Total Bilirubin 0.4 mg/dL (0.2-1.0) Aspartate Amino Transf (AST/SGOT) 31 U/L (15-37) Alanine Aminotransferase (ALT/SGPT) 39 U/L (16-63) Alkaline Phosphatase 97 U/L (46-116) Total Protein 6.1 g/dL (6.4-8.2) Albumin 1.9 g/dL (3.4-5.0) Albumin/Globulin Ratio 0.5 (1.0-1.7) Results All relevant outside records, renal labs, imaging studies, telemetry/EKG's were reviewed. ANA BERRIOS MD May 16, 2019 09:46
--- NOTE | 2019-05-16 10:07 | PDOC ---
MITESH BRYANT [employer] 05/16/19 1007: CARDIO Progress Notes Date and Time Date of Service 05/16/2019 Time of Evaluation 0950 Subjective Subjective: No Chest Pain, No shortness of breath, No Palpitations, Other (abd pain controlled) Vitals Vitals Vital Signs Date Time Temp Pulse Resp B/P (MAP) Pulse Ox O2 Delivery O2 Flow Rate FiO2 05/16/19 08:21 94 Nasal Cannula 2.0 05/16/19 06:00 93 20 159/71 (100) 05/16/19 04:00 98.5 98.5 Weight Weight [ ] Input and Output Intake and Output Intake and Output0 05/16/19 06:59 Intake Total 572 ml Output Total 3105 ml Balance -2533 ml Intake Oral 0 ml IV Total 572 ml Output Urine Total 950 ml Gastric Drainage Total 425 ml Drainage Total 1730 ml Laboratory Labs Laboratory Tests Test 05/15/19 13:21 05/15/19 13:30 05/15/19 15:07 05/15/19 21:38 Glucose (Fingerstick) 248 mg/dL (70-99) 217 mg/dL (70-99) Prothrombin Time 16.9 SEC (11.7-14.0) Prothromb Time International Ratio 1.4 (0.8-1.1) Lactic Acid Level 1.1 mmol/L (0.4-2.0) Troponin I Quantitative < 0.017 ng/mL (0.000-0.055) Test 05/16/19 05:11 05/16/19 05:15 Glucose (Fingerstick) 317 mg/dL (70-99) White Blood Count 21.2 x10^3/uL (4.0-11.0) Red Blood Count 2.99 x10^6/uL (4.30-5.70) Hemoglobin 9.3 g/dL (13.0-17.5) Hematocrit 28.4 % (39.0-53.0) Mean Corpuscular Volume 95 fL (79-100) Mean Corpuscular Hemoglobin 31 pg (25-35) Mean Corpuscular Hemoglobin Concent 33 g/dL (31-37) Red Cell Distribution Width 14.4 % (11.5-14.5) Platelet Count 331 x10^3/uL (140-400) Neutrophils (%) (Auto) 90 % (31-73) Lymphocytes (%) (Auto) 5 % (24-48) Monocytes (%) (Auto) 5 % (0-9) Eosinophils (%) (Auto) 0 % (0-3) Basophils (%) (Auto) 0 % (0-3) Neutrophils # (Auto) 19.0 x10^3/uL (1.8-7.7) Lymphocytes # (Auto) 1.0 x10^3/uL (1.0-4.8) Monocytes # (Auto) 1.1 x10^3/uL (0.0-1.1) Eosinophils # (Auto) 0.0 x10^3/uL (0.0-0.7) Basophils # (Auto) 0.1 x10^3/uL (0.0-0.2) Sodium Level 140 mmol/L (136-145) Potassium Level 4.1 mmol/L (3.5-5.1) Chloride Level 106 mmol/L (98-107) Carbon Dioxide Level 22 mmol/L (21-32) Anion Gap 12 (6-14) Blood Urea Nitrogen 53 mg/dL (8-26) Creatinine 1.7 mg/dL (0.7-1.3) Estimated GFR (Cockcroft-Gault) 39.7 BUN/Creatinine Ratio 31 (6-20) Glucose Level 345 mg/dL (70-99) Calcium Level 8.8 mg/dL (8.5-10.1) Phosphorus Level 3.4 mg/dL (2.6-4.7) Magnesium Level 2.3 mg/dL (1.8-2.4) Total Bilirubin 0.4 mg/dL (0.2-1.0) Aspartate Amino Transf (AST/SGOT) 31 U/L (15-37) Alanine Aminotransferase (ALT/SGPT) 39 U/L (16-63) Alkaline Phosphatase 97 U/L (46-116) Total Protein 6.1 g/dL (6.4-8.2) Albumin 1.9 g/dL (3.4-5.0) Albumin/Globulin Ratio 0.5 (1.0-1.7) Physical Exam HEENT: Neck Supple W Full Motion Chest: Symmetric LUNGS: Other (basilar crackles) Heart: RRR (SR RBBB) Abdomen: Other (abdominal dressing D &I; MACKENZIE large dark green drain) Extremities: No Edema, No Calf Tenderness Neurology: alert, oriented, follow commands Assessment Assessment 1. Duodenal perforation: POD #8 S/P Exlap with repair. pain controlled 2. Possible persistent duodenal perforation 3. Sepsis 4. COPD 5. GREGG: per PCP 6. HTN: controlled 7. HLP 10. DM2 11. Protein malnutrition Recommendations 1. Recent MPI with reported good result per pt suspected done as preop prior to his successful TSA indicating good cardiac reserve. EF and WM nml. BP remains stable and no concerning arrhythmias. No pressors warranted at this time. Nothing further cardiac sullivan 2. Continue antibiotic treatment per ID. 3. Hydralazine IV PRN. No ACEi for now. CELESTINO RIOS MD 05/16/19 1259: CARDIO Progress Notes Assessment Assessment Patient seen and examined. Agree with DRAWING MACHINE OPERATOR's assessment and plan. 2D echo showed normal LVF Recent MPI without any ischemia Continue post op care per MITESH BRYANT APRN May 16, 2019 10:07 CELESTINO RIOS MD May 16, 2019 21:55
--- NOTE | 2019-05-16 10:12 | PDOC ---
PULMONARY PROGRESS NOTES Subjective BETTER TODAY B/P IS BETTER NO INCREASE SOA NG IN PLACE Vitals Vital Signs Date Time Temp Pulse Resp B/P (MAP) Pulse Ox O2 Delivery O2 Flow Rate FiO2 05/16/19 08:21 94 Nasal Cannula 2.0 05/16/19 06:00 93 20 159/71 (100) 05/16/19 04:00 98.5 98.5 ROS: No Chest Pain, No Increase Cough General: Alert, Oriented X4 HEENT: Other (nc at perrl nose throat clear neck no lad no thyromegaly) Lungs: Clear, Other (deminished bs) Cardiovascular: S1, S2 Abdomen: Soft, Non-tender, Other (no mass) Neuro Exam: Alert Extremities: No Edema Skin: Warm Labs Laboratory Tests Test 05/14/19 11:54 05/15/19 03:30 05/15/19 03:35 05/15/19 06:01 Glucose (Fingerstick) 216 mg/dL (70-99) 250 mg/dL (70-99) Sodium Level 137 mmol/L (136-145) Potassium Level 3.9 mmol/L (3.5-5.1) Chloride Level 102 mmol/L (98-107) Carbon Dioxide Level 22 mmol/L (21-32) Anion Gap 13 (6-14) Blood Urea Nitrogen 35 mg/dL (8-26) Creatinine 1.6 mg/dL (0.7-1.3) Estimated GFR (Cockcroft-Gault) 42.6 BUN/Creatinine Ratio 22 (6-20) Glucose Level 280 mg/dL (70-99) Calcium Level 8.6 mg/dL (8.5-10.1) Phosphorus Level 3.5 mg/dL (2.6-4.7) Magnesium Level 2.0 mg/dL (1.8-2.4) Total Bilirubin 0.5 mg/dL (0.2-1.0) Aspartate Amino Transf (AST/SGOT) 29 U/L (15-37) Alanine Aminotransferase (ALT/SGPT) 47 U/L (16-63) Alkaline Phosphatase 100 U/L (46-116) Total Protein 6.1 g/dL (6.4-8.2) Albumin 2.0 g/dL (3.4-5.0) Albumin/Globulin Ratio 0.5 (1.0-1.7) Triglycerides Level 225 mg/dL (0-150) White Blood Count 21.1 x10^3/uL (4.0-11.0) Red Blood Count 3.41 x10^6/uL (4.30-5.70) Hemoglobin 10.5 g/dL (13.0-17.5) Hematocrit 32.4 % (39.0-53.0) Mean Corpuscular Volume 95 fL (79-100) Mean Corpuscular Hemoglobin 31 pg (25-35) Mean Corpuscular Hemoglobin Concent 32 g/dL (31-37) Red Cell Distribution Width 14.1 % (11.5-14.5) Platelet Count 333 x10^3/uL (140-400) Neutrophils (%) (Auto) 89 % (31-73) Lymphocytes (%) (Auto) 5 % (24-48) Monocytes (%) (Auto) 5 % (0-9) Eosinophils (%) (Auto) 0 % (0-3) Basophils (%) (Auto) 0 % (0-3) Neutrophils # (Auto) 18.9 x10^3/uL (1.8-7.7) Lymphocytes # (Auto) 1.1 x10^3/uL (1.0-4.8) Monocytes # (Auto) 1.1 x10^3/uL (0.0-1.1) Eosinophils # (Auto) 0.0 x10^3/uL (0.0-0.7) Basophils # (Auto) 0.1 x10^3/uL (0.0-0.2) Segmented Neutrophils % 83 % (35-66) Band Neutrophils % 3 % (0-9) Lymphocytes % 8 % (24-48) Monocytes % 6 % (0-10) Platelet Estimate Adequate (ADEQUATE) Test 05/15/19 13:21 05/15/19 13:30 05/15/19 15:07 05/15/19 21:38 Glucose (Fingerstick) 248 mg/dL (70-99) 217 mg/dL (70-99) Prothrombin Time 16.9 SEC (11.7-14.0) Prothromb Time International Ratio 1.4 (0.8-1.1) Lactic Acid Level 1.1 mmol/L (0.4-2.0) Troponin I Quantitative < 0.017 ng/mL (0.000-0.055) Test 05/16/19 05:11 05/16/19 05:15 Glucose (Fingerstick) 317 mg/dL (70-99) White Blood Count 21.2 x10^3/uL (4.0-11.0) Red Blood Count 2.99 x10^6/uL (4.30-5.70) Hemoglobin 9.3 g/dL (13.0-17.5) Hematocrit 28.4 % (39.0-53.0) Mean Corpuscular Volume 95 fL (79-100) Mean Corpuscular Hemoglobin 31 pg (25-35) Mean Corpuscular Hemoglobin Concent 33 g/dL (31-37) Red Cell Distribution Width 14.4 % (11.5-14.5) Platelet Count 331 x10^3/uL (140-400) Neutrophils (%) (Auto) 90 % (31-73) Lymphocytes (%) (Auto) 5 % (24-48) Monocytes (%) (Auto) 5 % (0-9) Eosinophils (%) (Auto) 0 % (0-3) Basophils (%) (Auto) 0 % (0-3) Neutrophils # (Auto) 19.0 x10^3/uL (1.8-7.7) Lymphocytes # (Auto) 1.0 x10^3/uL (1.0-4.8) Monocytes # (Auto) 1.1 x10^3/uL (0.0-1.1) Eosinophils # (Auto) 0.0 x10^3/uL (0.0-0.7) Basophils # (Auto) 0.1 x10^3/uL (0.0-0.2) Sodium Level 140 mmol/L (136-145) Potassium Level 4.1 mmol/L (3.5-5.1) Chloride Level 106 mmol/L (98-107) Carbon Dioxide Level 22 mmol/L (21-32) Anion Gap 12 (6-14) Blood Urea Nitrogen 53 mg/dL (8-26) Creatinine 1.7 mg/dL (0.7-1.3) Estimated GFR (Cockcroft-Gault) 39.7 BUN/Creatinine Ratio 31 (6-20) Glucose Level 345 mg/dL (70-99) Calcium Level 8.8 mg/dL (8.5-10.1) Phosphorus Level 3.4 mg/dL (2.6-4.7) Magnesium Level 2.3 mg/dL (1.8-2.4) Total Bilirubin 0.4 mg/dL (0.2-1.0) Aspartate Amino Transf (AST/SGOT) 31 U/L (15-37) Alanine Aminotransferase (ALT/SGPT) 39 U/L (16-63) Alkaline Phosphatase 97 U/L (46-116) Total Protein 6.1 g/dL (6.4-8.2) Albumin 1.9 g/dL (3.4-5.0) Albumin/Globulin Ratio 0.5 (1.0-1.7) Laboratory Tests Test 05/15/19 13:21 05/15/19 13:30 05/15/19 15:07 05/15/19 21:38 Glucose (Fingerstick) 248 mg/dL (70-99) 217 mg/dL (70-99) Prothrombin Time 16.9 SEC (11.7-14.0) Prothromb Time International Ratio 1.4 (0.8-1.1) Lactic Acid Level 1.1 mmol/L (0.4-2.0) Troponin I Quantitative < 0.017 ng/mL (0.000-0.055) Test 05/16/19 05:11 05/16/19 05:15 Glucose (Fingerstick) 317 mg/dL (70-99) White Blood Count 21.2 x10^3/uL (4.0-11.0) Red Blood Count 2.99 x10^6/uL (4.30-5.70) Hemoglobin 9.3 g/dL (13.0-17.5) Hematocrit 28.4 % (39.0-53.0) Mean Corpuscular Volume 95 fL (79-100) Mean Corpuscular Hemoglobin 31 pg (25-35) Mean Corpuscular Hemoglobin Concent 33 g/dL (31-37) Red Cell Distribution Width 14.4 % (11.5-14.5) Platelet Count 331 x10^3/uL (140-400) Neutrophils (%) (Auto) 90 % (31-73) Lymphocytes (%) (Auto) 5 % (24-48) Monocytes (%) (Auto) 5 % (0-9) Eosinophils (%) (Auto) 0 % (0-3) Basophils (%) (Auto) 0 % (0-3) Neutrophils # (Auto) 19.0 x10^3/uL (1.8-7.7) Lymphocytes # (Auto) 1.0 x10^3/uL (1.0-4.8) Monocytes # (Auto) 1.1 x10^3/uL (0.0-1.1) Eosinophils # (Auto) 0.0 x10^3/uL (0.0-0.7) Basophils # (Auto) 0.1 x10^3/uL (0.0-0.2) Sodium Level 140 mmol/L (136-145) Potassium Level 4.1 mmol/L (3.5-5.1) Chloride Level 106 mmol/L (98-107) Carbon Dioxide Level 22 mmol/L (21-32) Anion Gap 12 (6-14) Blood Urea Nitrogen 53 mg/dL (8-26) Creatinine 1.7 mg/dL (0.7-1.3) Estimated GFR (Cockcroft-Gault) 39.7 BUN/Creatinine Ratio 31 (6-20) Glucose Level 345 mg/dL (70-99) Calcium Level 8.8 mg/dL (8.5-10.1) Phosphorus Level 3.4 mg/dL (2.6-4.7) Magnesium Level 2.3 mg/dL (1.8-2.4) Total Bilirubin 0.4 mg/dL (0.2-1.0) Aspartate Amino Transf (AST/SGOT) 31 U/L (15-37) Alanine Aminotransferase (ALT/SGPT) 39 U/L (16-63) Alkaline Phosphatase 97 U/L (46-116) Total Protein 6.1 g/dL (6.4-8.2) Albumin 1.9 g/dL (3.4-5.0) Albumin/Globulin Ratio 0.5 (1.0-1.7) Medications Active Scripts Medications Dose Route/Sig Max Daily Dose Days Date Category Venlafaxine Hcl 75 Mg Tablet Unknown Dose PO DAILY 02/18/19 Reported Simvastatin 10 Mg Tablet 10 Mg PO DAILY 02/18/19 Reported Metformin Hcl 1,000 Mg Tablet 1,000 Mg PO BIDWMEALS 02/18/19 Reported Meloxicam 15 Mg Tablet Unknown Dose PO DAILY 02/18/19 Reported Lisinopril 10 Mg Tablet Unknown Dose PO DAILY 02/18/19 Reported Humalog (Insulin Lispro) 100 Unit/1 Ml Cartridge 100 Unit SQ 02/18/19 Reported Sinemet 25-100 Mg Tablet (Carbidopa/Levodopa) 1 Each Tablet 1 Tab PO TID 02/18/19 Reported Impression . IMPRESSION: 1. Expected acute hypoxemic respiratory failure status post repair of a perforated duodenal ulcer. 2. Status post laparoscopy with open laparotomy for closure of a duodenal ulcer with Dawood patch. 05/08 3. Acute exacerbation of chronic obstructive pulmonary disease. 4. Tobacco dependence. 5. Hypertension. 6. Recent right shoulder repair. 7. Hypotension. 8. Fever. 9. Possible sepsis present upon admission. 10. CT-guided abdominal drain placement as described. 05/15 Impression: 1. Extravasation of oral contrast within the right upper quadrant extending from the first portion of the duodenum, concerning for persistent duodenal perforation. Scattered pneumoperitoneum. 2. Increased loculated fluid within the right mid abdomen adjacent to small bowel loops with wall thickening. 3. Increased mesenteric edema and body wall edema. 4. Small right pleural effusion with adjacent atelectasis. 5. Tiny focus of gas within the urinary bladder, likely related to recent instrumentation. Plan . OK TO TRANSFER OUT OF ICU PULMONARY HYGIENE AGREE WITH CURRENT RX D/C SMOKING CONTINUE SUPPORT TG RAZO MD May 16, 2019 10:12
[2019-05-16] MEDS: DAPTOmycin (GENERIC) IVPB 570 MG in IV NORMAL SALINE 50ML 50 ML IV SCH (11:29)
[2019-05-16] MEDS: MICAFUNGIN 100 MG in IV DEXTROSE 5% 100ML 100 ML IV SCH (12:21)
[2019-05-16] MEDS ORDERED: INSULIN REGULAR 100 UNIT/ML 3ML VIAL. IV ONE (13:15)
[2019-05-16] MEDS ORDERED: DEXTROSE 50% 25 GM / 50ML DISP.SYRIN. IV PRN (13:15)
--- NOTE | 2019-05-16 13:18 | NUR ---
SS following up with discharge planning. Pt transferred from room 410. Pt is from home with spouse. Pt is currently requiring TPN, IV abx, MACKENZIE drain, and NG tube. SS will continue to follow for discharge planning.
[2019-05-16] MEDS: TPN PER PHARMACY MC PRN (14:04)
--- NOTE | 2019-05-16 14:16 | NUR ---
Pharmacy TPN Dosing Note S: MORIAH BARRAGAN is a 73 year old M Currently receiving Central Continuous TPN started 05/15/19 B:Pertinent PMH: Perforated duodenal ulcer Height: 5 feet, 10 inches Weight: 101.983349 kg Current diet: NPO LABS: Sodium: 140 Potassium: 4.1 Chloride: 106 Calcium: 8.8 Corrected Calcium: 10.48 Magnesium: 2.3 CO2: 22 SCr: 1.7 Glucose: 320 Albumin: 1.9 AST: 31 ALT: 39 TPN FORMULA: TPN TYPE: Central Continuous AMINO ACIDS: 60 gm DEXTROSE: 195 gm LIPIDS: 20 gm SODIUM CHLORIDE: 90 mEq SODIUM ACETATE: mEq SODIUM PHOSPHATE: mmol POTASSIUM CHLORIDE: 50 mEq POTASSIUM ACETATE: mEq POTASSIUM PHOSPHATE: 13.6 mmol MAGNESIUM: 10 mEq CALCIUM: 10 mEq INSULIN: units MULTIPLE VITAMIN: 10 ml TRACE ELEMENTS: 1 ml(s) TPN PLAN: Continue current tpn regimen, the blood sugars have been elevated, order noted to restart lispro insulin sliding scale after a 1 time dose of 8 units IV of regular insulin. The addition of fast acting insulin to the patient's drug therapy should help decrease blood sugars. R: Continue TPN as per above Will monitor electrolytes, glucose, and tolerance to TPN. GRISLE BALTAZAR [facility], 05/16/19 [id number]
--- NOTE | 2019-05-16 14:38 | NUR ---
SS following up with discharge planning. SS phoned and faxed referral for LTAC to [facility], ; fax [phone]. SS will await acceptance decision and will proceed accordingly.
[2019-05-16] MEDS: IV NORMAL SALINE 1000ML BAG 1,000 ML IV SCH (14:44)
--- NOTE | 2019-05-16 15:35 | NUR ---
Pt transferred to room 434 via transport with all belongings, at the bedside.
--- NOTE | 2019-05-16 15:35 | NUR ---
Arrived to unit by w/c. Assisted to bed with assist x's 2. Unsteady and weak. Oriented to room and controls. Side rails up x's 2 with call light in reach. at bedside. IVF's restarted x's 2. O2 at 3l per n/c. NG hooked up to intermitted low suction. SCD's hooked up to pump. MACKENZIE drains x's 2 intact. Placed pillow under right arm. Cont. monitor.
--- NOTE | 2019-05-16 15:37 | NUR ---
SS following up with discharge planning. Pt accepted at [facility], ; fax [phone]. Physician notified. SS will continue to follow for discharge planning.
[2019-05-16] MEDS ORDERED: INSULIN LISPRO 300 UNITS/3 ML VIAL. SQ SCH (17:00)
[2019-05-16] MEDS: INSULIN LISPRO 300 UNITS/3 ML VIAL. SQ SCH (18:15)
[2019-05-16] MEDS: SIMVASTATIN 10 MG TABLET PO SCH (21:00)
[2019-05-16] MEDS ORDERED: TOTAL PARENTERAL NUTRITION 1,424.9987 ML, AMINO ACID 15% 60 GM, DEXTROSE 70 % IN WATER ... IV SCH ×10 (22:00)
[2019-05-16] MEDS: INSULIN GLARGINE SYRINGE. SQ SCH (22:25)
[2019-05-17] MEDS: INSULIN LISPRO 300 UNITS/3 ML VIAL. SQ SCH ×4 (00:12→18:23)
[2019-05-17 03:56] VITALS: BP 146/49
[2019-05-17] MEDS: IV NORMAL SALINE 1000ML BAG 1,000 ML IV SCH ×2 (05:14→18:20)
[2019-05-17] MEDS: PANTOPRAZOLE 40 MG TABLET.DR. PO SCH (05:17)
[2019-05-17] MEDS: CEFEPIME HCL IV Push 2 GM VIAL. IVP SCH ×3 (05:17→23:01)
[2019-05-17 07:00] VITALS: BP 152/57
[2019-05-17 07:09] LABS: CALCIUM 8.7 mg/dL (8.5-10.1); CREATININE 1.6 mg/dL (0.7-1.3); GFR 42.6; POTASSIUM 4.4 mmol/L (3.5-5.1)
[2019-05-17 07:14] LABS: MAGNESIUM 2.1 mg/dL (1.8-2.4); PHOSPHORUS 3.1 mg/dL (2.6-4.7)
[2019-05-17] MEDS: IPRATRPIUM/ALBUTEROL 0.5/2.5MG 3 ML NEBU. NEB SCH ×4 (07:16→18:10)
[2019-05-17] MEDS: BUDESONIDE 0.5 MG/2 ML NEBU. NEB SCH ×2 (07:16→18:11)
--- NOTE | 2019-05-17 07:29 | NUR ---
This RN flushed the MACKENZIE drain #2 two times this shift.
--- NOTE | 2019-05-17 07:52 | PDOC ---
Infectious Disease Note Subjective Subjective Much better today. no pain wants to drink Feels dry Cough is less No F/C/S/V/D/SOA/Rash Vital Sign Vital Signs Vital Signs Date Time Temp Pulse Resp B/P (MAP) Pulse Ox O2 Delivery O2 Flow Rate FiO2 05/17/19 07:17 95 Nasal Cannula 2.0 05/17/19 03:56 98.2 80 20 146/49 (81) 98.2 Physical Exam PHYSICAL EXAM GENERAL: Laying in bed, alert, NAD - looks much better HEENT: Pupils equally round. Oropharynx is clear. NGT NECK: Supple. LUNGS: Clear to auscultation. HEART: S1, S2 regular. ABDOMEN: Obese, soft, mild distension. with hypoactive bowel sounds. Surgical dressings are dry and MACKENZIE drain intact- with continued bilious drainage. New MACKENZIE with serous fluid EXTREMITIES: No gross edema or cyanosis.. Right shoulder incision well-approx stable, clean. SKIN: Warm to touch. No signs of rash. NEUROLOGIC: Alert and oriented x3. Labs Lab Laboratory Tests Test 05/16/19 12:27 05/16/19 18:06 05/16/19 22:22 05/17/19 00:06 Glucose (Fingerstick) 320 mg/dL (70-99) 288 mg/dL (70-99) 297 mg/dL (70-99) 340 mg/dL (70-99) Test 05/17/19 05:56 05/17/19 06:15 Glucose (Fingerstick) 310 mg/dL (70-99) Sodium Level 142 mmol/L (136-145) Potassium Level 4.4 mmol/L (3.5-5.1) Chloride Level 112 mmol/L (98-107) Carbon Dioxide Level 21 mmol/L (21-32) Anion Gap 9 (6-14) Blood Urea Nitrogen 48 mg/dL (8-26) Creatinine 1.6 mg/dL (0.7-1.3) Estimated GFR (Cockcroft-Gault) 42.6 Glucose Level 344 mg/dL (70-99) Calcium Level 8.7 mg/dL (8.5-10.1) Phosphorus Level 3.1 mg/dL (2.6-4.7) Magnesium Level 2.1 mg/dL (1.8-2.4) Micro CT Impression: 05/14 1. Extravasation of oral contrast within the right upper quadrant extending from the first portion of the duodenum, concerning for persistent duodenal perforation. Scattered pneumoperitoneum. 2. Increased loculated fluid within the right mid abdomen adjacent to small bowel loops with wall thickening. 3. Increased mesenteric edema and body wall edema. 4. Small right pleural effusion with adjacent atelectasis. 5. Tiny focus of gas within the urinary bladder, likely related to recent instrumentation. Objective Assessment Perforated duodenal ulcer s/p repair, 05/08 no apparent cultures S/p Abd drain placed 05/15 sce to fluid collection Fever - times one post procedure 05/15 - improved now Leukocytosis - stable today - initial Pancytopenia ? inpart reactive Abx allergy: Sulfa and cipro w/ rash Acute respiratory failure, now on venti mask -s/p Bronchoscopy with BAL, 05/09. mucous plugging, culture pending GREGG -mild increase Nonobstructing calculus of the right kidney. Recent right shoulder joint replacement, 05/06 at [facility] Plan Plan of Care Discontinued Zosyn and fluconazole 05/14 Cont Dapto/Cefepime/Flagyl/Micafungin with leukocytosis started 05/14 f/u cultures/labs in am Await further surgical eval D/w nursing YULIANA ONEAL MD May 17, 2019 07:52
[2019-05-17] MEDS ORDERED: INSULIN GLARGINE SYRINGE. SQ STA (08:30)
[2019-05-17] MEDS ORDERED: LABETALOL 20 MG/4 ML DISP.SYRIN. IVP PRN (08:30)
[2019-05-17] MEDS: INSULIN GLARGINE SYRINGE. SQ SCH ×2 (08:30→20:46)
[2019-05-17] MEDS: LACTOBACILLUS RHAMNOSUS GG 1 CAPSULE. PO SCH ×2 (08:38→20:49)
[2019-05-17] MEDS: VENLAFAXINE XR 37.5 MG CAP.ER.24H. PO SCH (08:38)
[2019-05-17] MEDS: PRIMIDONE 50 MG TABLET PO SCH ×2 (08:39→20:49)
[2019-05-17] MEDS: HEPARIN for SUB-Q USE 5,000 UNIT/ML VIAL. SQ SCH ×2 (09:13→20:45)
--- NOTE | 2019-05-17 09:56 | PDOC ---
PROGRESS NOTES Chief Complaint Chief Complaint A/P: s/p perf viscus repair 05/09 05/14 CTExtravasation of oral contrast within the right upper quadrant extending from the first portion of the duodenum, concerning for persistent duodenal perforation. Scattered pneumoperitoneum. Increased loculated fluid within the right mid abdomen adjacent to small bowel loops with wall thickening. Increased mesenteric edema and body wall edema. SEVERE SEPSIS Begin Dapto/Cefepime/Flagyl/Micafungin with leukocytosis and increased MACKENZIE drainage despite abx CT 05/14 with extravasation Severe protein-caloric malnutrition GREGG - likely vasomotor nephropathy Perforated duodenal ulcer - Diagnostic laparoscopy with open laparotomy and closure of duodenal ulcer and Dawood patch 05-09 Small amount of ascites is seen within the abdomen and pelvis HTN, Fair control Acute hypoxemic respiratory failure Acute exacerbation of chronic obstructive pulmonary disease. Tobacco dependence. Recent right shoulder repair Movement disorder NOS - parkinsonian symptoms - will restart meds HLD - restart statin DM 2 insulin req REcent RT shoulder sx (total arthroplasty at [facility]) MEt encepahlopathy sec to medical course History of Present Illness History of Present Illness t.o icu after repair of perf DU - laparoscopic INsulin regimen at home is 35 qhs and 15 breakfast and lunch, and 20 units dinner fast acting Metformin hold as creat 1,5 (better than admission, has stabilized) NO MORE confusion, NGT in with 2 MACKENZIE draina with minmal draiange and belly soft Asks about NGT BS 350s, PLAN: INc SSI to high dose q6 INc lantus from 15 to 22 units qhs ( he is on 35 qhs at home) COnt TPN for now NGT per Ambulater - will add PT OT Dw Full code Agreeable to SNU -was suppsoed to dc actually () Vitals Vitals Vital Signs Date Time Temp Pulse Resp B/P (MAP) Pulse Ox O2 Delivery O2 Flow Rate FiO2 05/17/19 07:17 95 Nasal Cannula 2.0 05/17/19 07:00 98.7 63 16 152/57 (88) 98.7 Physical Exam Physical Exam GENERAL: Laying in bed, alert, NAD - looks much better HEENT: Pupils equally round. Oropharynx is clear. NGT NECK: Supple. LUNGS: Clear to auscultation. HEART: S1, S2 regular. ABDOMEN: Obese, soft, mild distension. with hypoactive bowel sounds. Surgical dressings are dry and MACKENZIE drain intact- with continued bilious drainage. New MACKENZIE with serous fluid EXTREMITIES: No gross edema or cyanosis.. Right shoulder incision well-approx stable, clean. SKIN: Warm to touch. No signs of rash. NEUROLOGIC: Alert and oriented x3. General: Cooperative, No acute distress Heart: Regular rate (SR), Other (distant heart sounds) Lungs: Clear, Other (deminished bs) Abdomen: Soft, Other (drains in place. brownish drainage) Extremities: No clubbing, No cyanosis, No edema, Normal pulses, No tenderness/swelling Skin: Other (abdominal surgical incision) Labs LABS Laboratory Tests Test 05/16/19 12:27 05/16/19 18:06 05/16/19 22:22 05/17/19 00:06 Glucose (Fingerstick) 320 mg/dL (70-99) 288 mg/dL (70-99) 297 mg/dL (70-99) 340 mg/dL (70-99) Test 05/17/19 05:56 05/17/19 06:15 Glucose (Fingerstick) 310 mg/dL (70-99) Sodium Level 142 mmol/L (136-145) Potassium Level 4.4 mmol/L (3.5-5.1) Chloride Level 112 mmol/L (98-107) Carbon Dioxide Level 21 mmol/L (21-32) Anion Gap 9 (6-14) Blood Urea Nitrogen 48 mg/dL (8-26) Creatinine 1.6 mg/dL (0.7-1.3) Estimated GFR (Cockcroft-Gault) 42.6 Glucose Level 344 mg/dL (70-99) Calcium Level 8.7 mg/dL (8.5-10.1) Phosphorus Level 3.1 mg/dL (2.6-4.7) Magnesium Level 2.1 mg/dL (1.8-2.4) Review of Systems Review of Systems minimal abd pain, all else 14 pt neg Assessment and Plan Assessmemt and Plan Problems Medical Problems: (1) Perforated intestine, nontraumatic Status: Acute Comment Review of Relevant I have reviewed the following items adriano (where applicable) has been applied. Labs Laboratory Tests Test 05/15/19 13:21 05/15/19 13:30 05/15/19 15:07 05/15/19 21:38 Glucose (Fingerstick) 248 mg/dL (70-99) 217 mg/dL (70-99) Prothrombin Time 16.9 SEC (11.7-14.0) Prothromb Time International Ratio 1.4 (0.8-1.1) Lactic Acid Level 1.1 mmol/L (0.4-2.0) Troponin I Quantitative < 0.017 ng/mL (0.000-0.055) Test 05/16/19 05:11 05/16/19 05:15 05/16/19 12:27 05/16/19 18:06 Glucose (Fingerstick) 317 mg/dL (70-99) 320 mg/dL (70-99) 288 mg/dL (70-99) White Blood Count 21.2 x10^3/uL (4.0-11.0) Red Blood Count 2.99 x10^6/uL (4.30-5.70) Hemoglobin 9.3 g/dL (13.0-17.5) Hematocrit 28.4 % (39.0-53.0) Mean Corpuscular Volume 95 fL (79-100) Mean Corpuscular Hemoglobin 31 pg (25-35) Mean Corpuscular Hemoglobin Concent 33 g/dL (31-37) Red Cell Distribution Width 14.4 % (11.5-14.5) Platelet Count 331 x10^3/uL (140-400) Neutrophils (%) (Auto) 90 % (31-73) Lymphocytes (%) (Auto) 5 % (24-48) Monocytes (%) (Auto) 5 % (0-9) Eosinophils (%) (Auto) 0 % (0-3) Basophils (%) (Auto) 0 % (0-3) Neutrophils # (Auto) 19.0 x10^3/uL (1.8-7.7) Lymphocytes # (Auto) 1.0 x10^3/uL (1.0-4.8) Monocytes # (Auto) 1.1 x10^3/uL (0.0-1.1) Eosinophils # (Auto) 0.0 x10^3/uL (0.0-0.7) Basophils # (Auto) 0.1 x10^3/uL (0.0-0.2) Sodium Level 140 mmol/L (136-145) Potassium Level 4.1 mmol/L (3.5-5.1) Chloride Level 106 mmol/L (98-107) Carbon Dioxide Level 22 mmol/L (21-32) Anion Gap 12 (6-14) Blood Urea Nitrogen 53 mg/dL (8-26) Creatinine 1.7 mg/dL (0.7-1.3) Estimated GFR (Cockcroft-Gault) 39.7 BUN/Creatinine Ratio 31 (6-20) Glucose Level 345 mg/dL (70-99) Calcium Level 8.8 mg/dL (8.5-10.1) Phosphorus Level 3.4 mg/dL (2.6-4.7) Magnesium Level 2.3 mg/dL (1.8-2.4) Total Bilirubin 0.4 mg/dL (0.2-1.0) Aspartate Amino Transf (AST/SGOT) 31 U/L (15-37) Alanine Aminotransferase (ALT/SGPT) 39 U/L (16-63) Alkaline Phosphatase 97 U/L (46-116) Total Protein 6.1 g/dL (6.4-8.2) Albumin 1.9 g/dL (3.4-5.0) Albumin/Globulin Ratio 0.5 (1.0-1.7) Test 05/16/19 22:22 05/17/19 00:06 05/17/19 05:56 05/17/19 06:15 Glucose (Fingerstick) 297 mg/dL (70-99) 340 mg/dL (70-99) 310 mg/dL (70-99) Sodium Level 142 mmol/L (136-145) Potassium Level 4.4 mmol/L (3.5-5.1) Chloride Level 112 mmol/L (98-107) Carbon Dioxide Level 21 mmol/L (21-32) Anion Gap 9 (6-14) Blood Urea Nitrogen 48 mg/dL (8-26) Creatinine 1.6 mg/dL (0.7-1.3) Estimated GFR (Cockcroft-Gault) 42.6 Glucose Level 344 mg/dL (70-99) Calcium Level 8.7 mg/dL (8.5-10.1) Phosphorus Level 3.1 mg/dL (2.6-4.7) Magnesium Level 2.1 mg/dL (1.8-2.4) Laboratory Tests Test 05/16/19 12:27 05/16/19 18:06 05/16/19 22:22 05/17/19 00:06 Glucose (Fingerstick) 320 mg/dL (70-99) 288 mg/dL (70-99) 297 mg/dL (70-99) 340 mg/dL (70-99) Test 05/17/19 05:56 05/17/19 06:15 Glucose (Fingerstick) 310 mg/dL (70-99) Sodium Level 142 mmol/L (136-145) Potassium Level 4.4 mmol/L (3.5-5.1) Chloride Level 112 mmol/L (98-107) Carbon Dioxide Level 21 mmol/L (21-32) Anion Gap 9 (6-14) Blood Urea Nitrogen 48 mg/dL (8-26) Creatinine 1.6 mg/dL (0.7-1.3) Estimated GFR (Cockcroft-Gault) 42.6 Glucose Level 344 mg/dL (70-99) Calcium Level 8.7 mg/dL (8.5-10.1) Phosphorus Level 3.1 mg/dL (2.6-4.7) Magnesium Level 2.1 mg/dL (1.8-2.4) Medications Current Medications Fentanyl Citrate (Fentanyl 2ml Vial) 50 mcg PRN Q15MIN PRN IV PAIN GREATER THAN 3/10 Last administered on 05/08/19 19:27; Start 05/08/19 at 16:30; Stop 05/08/19 at 21:00; Status DC Sodium Chloride 1,000 ml @ 250 mls/hr Q4H IV Last administered on 05/08/19 16:54; Start 05/08/19 at 16:19; Stop 05/08/19 at 20:18; Status DC Metoclopramide HCl (Reglan Vial) 10 mg 1X ONCE IVP Last administered on 05/08/19 16:51; Start 05/08/19 at 17:00; Stop 05/08/19 at 17:01; Status DC Diphenhydramine HCl (Benadryl) 25 mg 1X ONCE IVP Last administered on 05/08/19 16:51; Start 05/08/19 at 17:00; Stop 05/08/19 at 17:01; Status DC Iohexol (Omnipaque 350 Mg/ml) 90 ml 1X ONCE IV Last administered on 05/08/19at 17:45; Start 05/08/19 at 17:30; Stop 05/08/19 at 17:31; Status DC Info (CONTRAST GIVEN -- Rx MONITORING) 1 each PRN DAILY PRN MC SEE COMMENTS; Start 05/08/19 at 17:30; Stop 05/10/19 at 17:29; Status DC Hydromorphone HCl (Dilaudid) 1 mg 1X ONCE IV Last administered on 05/08/19at 18:23; Start 05/08/19 at 18:30; Stop 05/08/19 at 18:31; Status DC Piperacillin Sod/ Tazobactam Sod 3.375 gm/Sodium Chloride 50 ml @ 100 mls/hr 1X ONCE IV Last administered on 05/08/19at 19:06; Start 05/08/19 at 19:00; Stop 05/08/19 at 19:29; Status DC Sodium Chloride 1,000 ml @ 1,000 mls/hr 1X ONCE IV Last administered on 05/08/19at 19:06; Start 05/08/19 at 19:00; Stop 05/08/19 at 19:59; Status DC Ondansetron HCl (Zofran) 4 mg STK-MED ONCE .ROUTE ; Start 05/08/19 at 19:34; Stop 05/08/19 at 19:34; Status DC Propofol 20 ml @ As Directed STK-MED ONCE IV ; Start 05/08/19 at 19:34; Stop 05/08/19 at 19:34; Status DC Lidocaine HCl (Lidocaine Pf 2% Vial) 5 ml STK-MED ONCE .ROUTE ; Start 05/08/19 at 19:34; Stop 05/08/19 at 19:34; Status DC Dexamethasone Sodium Phosphate (Decadron) 4 mg STK-MED ONCE .ROUTE ; Start 05/08/19 at 19:34; Stop 05/08/19 at 19:34; Status DC Fentanyl Citrate (Fentanyl 2ml Vial) 100 mcg STK-MED ONCE .ROUTE ; Start 05/08/19 at 19:34; Stop 05/08/19 at 19:34; Status DC Succinylcholine Chloride (Anectine) 200 mg STK-MED ONCE .ROUTE ; Start 05/08/19 at 19:34; Stop 05/08/19 at 19:34; Status DC Rocuronium Pilgrim (Zemuron) 50 mg STK-MED ONCE .ROUTE ; Start 05/08/19 at 19:34; Stop 05/08/19 at 19:34; Status DC Ondansetron HCl (Zofran) 4 mg PRN Q6HRS PRN IV NAUSEA/VOMITING; Start 05/08/19 at 19:45; Stop 05/08/19 at 23:59; Status DC Fentanyl Citrate (Fentanyl 2ml Vial) 25 mcg PRN Q5MIN PRN IV MILD PAIN 1-3; Start 05/08/19 at 19:45; Stop 05/08/19 at 23:59; Status DC Fentanyl Citrate (Fentanyl 2ml Vial) 50 mcg PRN Q5MIN PRN IV MODERATE TO SEVERE PAIN; Start 05/08/19 at 19:45; Stop 05/08/19 at 23:59; Status DC Ringer's Solution 1,000 ml @ 30 mls/hr Q24H IV Last administered on 05/08/19at 23:06; Start 05/08/19 at 20:00; Stop 05/09/19 at 01:00; Status DC Prochlorperazine Edisylate (Compazine) 5 mg PACU PRN PRN IV NAUSEA, MRX1; Start 05/08/19 at 19:45; Stop 05/08/19 at 23:59; Status DC Insulin Human Lispro (HumaLOG VIAL for OP,RR ONLY) 0-10 units PRN Q1HR PRN SQ PER PROTOCOL; Start 05/08/19 at 19:45; Stop 05/08/19 at 23:59; Status DC Bupivacaine HCl/ Epinephrine Bitart (Sensorcaine-Epi 0.25%-1:[id number] Mpf) 30 ml 1X ONCE INJ Last administered on 05/08/19at 20:32; Start 05/08/19 at 20:00; Stop 05/08/19 at 20:01; Status DC Ketamine HCl (Ketamine) 50 mg STK-MED ONCE .ROUTE ; Start 05/08/19 at 20:12; Stop 05/08/19 at 20:12; Status DC Phenylephrine HCl (PHENYLEPHRINE in 0.9% NACL PF) 1 mg STK-MED ONCE IV ; Start 05/08/19 at 20:33; Stop 05/08/19 at 20:33; Status DC Ephedrine Sulfate (ePHEDrine PF IN SALINE SYRINGE) 50 mg STK-MED ONCE IV ; Start 05/08/19 at 20:36; Stop 05/08/19 at 20:36; Status DC Albumin Human 500 ml @ As Directed STK-MED ONCE IV ; Start 05/08/19 at 20:55; Stop 05/08/19 at 20:55; Status DC Glycopyrrolate (Robinul) 1 mg STK-MED ONCE .ROUTE ; Start 05/08/19 at 21:27; Stop 05/08/19 at 21:27; Status DC Neostigmine Methylsulfate (Neostigmine Methylsulfate) 5 mg STK-MED ONCE .ROUTE ; Start 05/08/19 at 21:27; Stop 05/08/19 at 21:27; Status DC Bupivacaine HCl (Sensorcaine Mpf 0.5%) 30 ml STK-MED ONCE .ROUTE ; Start 05/08/19 at 21:39; Stop 05/08/19 at 21:39; Status DC Epinephrine HCl (Adrenalin) 1 mg STK-MED ONCE .ROUTE ; Start 05/08/19 at 21:39; Stop 05/08/19 at 21:39; Status DC Sevoflurane (Ultane) 60 ml STK-MED ONCE IH ; Start 05/08/19 at 21:44; Stop 05/08/19 at 21:44; Status DC Sodium Chloride 1,000 ml @ 125 mls/hr Q8H IV Last administered on 05/08/19at 23:45; Start 05/08/19 at 22:00; Stop 05/09/19 at 15:21; Status DC Ondansetron HCl (Zofran) 4 mg PRN Q6HRS PRN IVP NAUSEA/VOMITING 1ST CHOICE; Start 05/08/19 at 22:00 Fluconazole/ Sodium Chloride 100 ml @ 100 mls/hr Q24H IV Last administered on 05/13/19at 21:14; Start 05/08/19 at 22:00; Stop 05/14/19 at 10:28; Status DC Hydromorphone HCl (Dilaudid) 1 mg PRN Q4HRS PRN IV SEVERE PAIN 7-10 Last administered on 05/15/19at 20:34; Start 05/08/19 at 22:00 Piperacillin Sod/ Tazobactam Sod 3.375 gm/Sodium Chloride 50 ml @ 100 mls/hr Q6HRS IV Last administered on 05/14/19at 05:49; Start 05/09/19 at 00:00; Stop 05/14/19 at 10:28; Status DC Pantoprazole Sodium (PROTONIX VIAL for IV PUSH) 40 mg DAILY IVP Last administered on 05/11/19at 09:43; Start 05/09/19 at 09:00; Stop 05/12/19 at 08:30; Status DC Insulin Human Regular 150 unit/ Sodium Chloride 151.5 ml @ 0 mls/hr CONT PRN IV SEE I/O RECORD; Start 05/08/19 at 23:00; Status UNV Insulin Human Regular 150 unit/ Sodium Chloride 151.5 ml @ 0 mls/hr CONT PRN IV SEE I/O RECORD Last administered on 05/08/19at 23:03; Start 05/08/19 at 23:00; Stop 05/12/19 at 13:06; Status DC Dextrose (Dextrose 50%-Water Syringe) 12.5 gm PRN Q15MIN PRN IV LOW BLOOD SUGAR; Start 05/08/19 at 23:00; Stop 05/17/19 at 08:35; Status DC Dextrose 250 ml PRN Q15MIN PRN IV LOW BLOOD SUGAR; Start 05/08/19 at 23:00 Albumin Human 500 ml @ 250 mls/hr 1X ONCE IV Last administered on 05/09/19at 00:10; Start 05/09/19 at 00:30; Stop 05/09/19 at 02:29; Status DC Norepinephrine Bitartrate 250 ml @ 20.156 mls/ hr CONT PRN IV SEE I/O RECORD; Start 05/09/19 at 00:00; Stop 05/12/19 at 13:06; Status DC Dextrose/Sodium Chloride 1,000 ml @ 150 mls/hr Q6H40M IV Last administered on 05/09/19at 12:28; Start 05/09/19 at 08:45; Stop 05/09/19 at 18:30; Status DC Sodium Chloride 500 ml @ 500 mls/hr PRN Q2HR PRN IV SEE COMMENTS; Start 05/09/19 at 11:15 Sodium Chloride 1,000 ml @ 2,190 mls/hr Q28M IV ; Start 05/09/19 at 12:39; Stop 05/09/19 at 13:39; Status DC Sodium Chloride 500 ml @ 1,000 mls/hr PRN Q30MIN PRN IV SEE COMMENTS; Start 05/09/19 at 12:45; Stop 05/09/19 at 12:50; Status DC Norepinephrine Bitartrate 250 ml @ 19.688 mls/ hr CONT PRN IV SEE I/O RECORD; Start 05/09/19 at 12:45; Status Cancel Dobutamine HCl/ Dextrose 250 ml @ 15.75 mls/ hr CONT PRN IV SEE I/O RECORD; Start 05/09/19 at 12:45; Stop 05/12/19 at 13:06; Status DC Insulin Human Lispro (HumaLOG) 0-7 UNITS TIDWMEALS SQ ; Start 05/09/19 at 17:00; Stop 05/09/19 at 19:36; Status DC Dextrose (Dextrose 50%-Water Syringe) 12.5 gm PRN Q15MIN PRN IV SEE COMMENTS; Start 05/09/19 at 15:30; Status UNV Sodium Chloride 1,000 ml @ 60 mls/hr [id number] IV Last administered on 05/10/19at 16:47; Start 05/09/19 at 15:30; Stop 05/12/19 at 10:57; Status DC Insulin Human Lispro (HumaLOG) 0-7 UNITS Q6HRS SQ Last administered on 05/13/19at 05:50; Start 05/10/19 at 00:00; Stop 05/13/19 at 08:27; Status DC Albuterol/ Ipratropium (Duoneb) 3 ml RTQID NEB Last administered on 05/17/19at 07:16; Start 05/10/19 at 08:00 Budesonide (Pulmicort) 0.5 mg RTBID NEB Last administered on 05/17/19at 07:16; Start 05/10/19 at 08:00 Heparin Sodium (Porcine) (Heparin Sodium) 5,000 unit BID SQ Last administered on 05/17/19at 09:13; Start 05/11/19 at 10:00 Phenol (Chloraseptic) 1 spray PRN Q2HR PRN PO SORE THROAT Last administered on 05/11/19at 13:12; Start 05/11/19 at 11:30 Multi-Ingredient Ointment (Analgesic Browning) 1 jazlyn PRN QID PRN TP MUSCLE PAIN; Start 05/11/19 at 11:30 Amino Acids/ Glycerin/ Electrolytes 1,000 ml @ 80 mls/hr [id number] IV Last administered on 05/15/19at 05:59; Start 05/11/19 at 12:00; Stop 05/15/19 at 21:59; Status DC Hydralazine HCl (Apresoline Inj) 10 mg PRN Q4HRS PRN IVP ELEVATED BP, SEE C OMMENTS; Start 05/11/19 at 11:45 Pantoprazole Sodium (Protonix) 40 mg DAILYAC PO Last administered on 05/14/19at 06:04; Start 05/12/19 at 09:00 Carbidopa/Levodopa (Sinemet 25/100) 1 tab TID PO ; Start 05/12/19 at 14:00; Stop 05/12/19 at 13:40; Status DC Lisinopril (Prinivil) 10 mg DAILY PO Last administered on 05/14/19at 09:14; Start 05/13/19 at 09:00; Stop 05/16/19 at 10:07; Status DC Simvastatin (Zocor) 10 mg QHS PO Last administered on 05/14/19at 21:08; Start 05/12/19 at 21:00 Venlafaxine HCl (Effexor) 75 mg DAILY PO Last administered on 05/12/19at 13:34; Start 05/12/19 at 13:30; Stop 05/12/19 at 14:20; Status DC Primidone (Mysoline) 50 mg DAILY PO ; Start 05/12/19 at 13:45; Stop 05/12/19 at 14:27; Status DC Insulin Glargine (Lantus Syringe) 15 unit QHS SQ Last administered on 05/16/19at 22:25; Start 05/12/19 at 21:00; Stop 05/17/19 at 08:31; Status DC Venlafaxine HCl (Effexor Xr) 75 mg DAILY PO Last administered on 05/14/19at 09:13; Start 05/13/19 at 09:00 Lactobacillus Rhamnosus (Culturelle) 1 cap BID PO Last administered on 05/14/19at 21:08; Start 05/12/19 at 21:00 Primidone (Mysoline) 25 mg BID PO Last administered on 05/14/19at 21:08; Start 05/12/19 at 14:30 Gabapentin (Neurontin) 300 mg PRN QHS PRN PO NEUROPATHIC PAIN Last administered on 05/12/19at 20:53; Start 05/12/19 at 17:45 Acetaminophen (Tylenol) 500 mg PRN Q6HRS PRN PO MILD PAIN / TEMP; Start 05/13/19 at 08:30 Tramadol HCl (Ultram) 50 mg PRN Q6HRS PRN PO PAIN MOD TO SEV Last administered on 05/14/19at 04:27; Start 05/13/19 at 08:30 Clonidine HCl (Catapres) 0.1 mg PRN Q1HR PRN PO HYPERTENSION; Start 05/13/19 at 08:30 Ondansetron HCl (Zofran) 4 mg PRN Q6HRS PRN IVP NAUSEA/VOMITING; Start 05/13/19 at 08:30; Status UNV Venlafaxine HCl (Effexor Xr) 37.5 mg BID PO ; Start 05/13/19 at 09:00; Stop 05/13/19 at 08:33; Status DC Iohexol (Omnipaque 240 Mg/ml) 30 ml 1X ONCE PO Last administered on 05/14/19at 08:45; Start 05/14/19 at 08:45; Stop 05/14/19 at 08:48; Status DC Iohexol (Omnipaque 300 Mg/ml) 60 ml 1X ONCE IV Last administered on 05/14/19at 08:45; Start 05/14/19 at 08:45; Stop 05/14/19 at 08:48; Status DC Info (CONTRAST GIVEN -- Rx MONITORING) 1 each PRN DAILY PRN MC SEE COMMENTS; Start 05/14/19 at 09:00; Stop 05/16/19 at 08:59; Status DC Daptomycin 570 mg/ Sodium Chloride 50 ml @ 100 mls/hr Q24H IV Last administered on 05/16/19at 11:29; Start 05/14/19 at 11:30 Micafungin Sodium 100 mg/Dextrose 100 ml @ 100 mls/hr Q24H IV Last administered on 05/16/19at 12:21; Start 05/14/19 at 11:00 Cefepime HCl (Maxipime) 2 gm Q8HRS IVP Last administered on 05/17/19at 05:17; Start 05/14/19 at 12:00 Metronidazole 100 ml @ 100 mls/hr Q8HRS IV Last administered on 05/17/19at 05:15; Start 05/14/19 at 14:00 Lidocaine HCl (Buffered Lidocaine 1%) 3 ml STK-MED ONCE .ROUTE ; Start 05/14/19 at 12:43; Stop 05/14/19 at 12:44; Status DC Lidocaine HCl (Buffered Lidocaine 1%) 3 ml 1X ONCE IJ Last administered on 05/14/19at 13:14; Start 05/14/19 at 13:00; Stop 05/14/19 at 13:02; Status DC Info (Tpn Per Pharmacy) 1 each PRN DAILY PRN MC SEE COMMENTS Last administered on 05/16/19at 14:04; Start 05/14/19 at 16:00 Sodium Chloride 90 meq/Potassium Chloride 50 meq/ Potassium Phosphate 13.6 mmol/Magnesium Sulfate 10 meq/ Calcium Gluconate 10 meq/ Multivitamins 10 ml/Chromium/ Copper/Manganese/ Seleni/Zn 1 ml/ Total Parenteral Nutrition/Amino Acids/Dextrose/ Fat Emulsion Intravenous 1,512 ml @ 63 mls/hr TPN CONT IV Last administered on 05/15/19at 21:58; Start 05/15/19 at 22:00; Stop 05/16/19 at 21:59; Status DC Lidocaine HCl (Buffered Lidocaine 1%) 3 ml STK-MED ONCE .ROUTE ; Start 05/15/19 at 13:19; Stop 05/15/19 at 13:19; Status DC Midazolam HCl (Versed) 2 mg STK-MED ONCE .ROUTE ; Start 05/15/19 at 13:47; Stop 05/15/19 at 13:47; Status DC Fentanyl Citrate (Fentanyl 2ml Vial) 100 mcg STK-MED ONCE .ROUTE ; Start 05/15/19 at 13:47; Stop 05/15/19 at 13:47; Status DC Flumazenil (Romazicon) 0.5 mg STK-MED ONCE IV ; Start 05/15/19 at 13:47; Stop 05/15/19 at 13:47; Status DC Naloxone HCl (Narcan) 0.4 mg STK-MED ONCE .ROUTE ; Start 05/15/19 at 13:47; Stop 05/15/19 at 13:47; Status DC Lidocaine HCl (Buffered Lidocaine 1%) 4 ml 1X ONCE IJ Last administered on 05/15/19at 14:30; Start 05/15/19 at 14:30; Stop 05/15/19 at 14:38; Status DC Midazolam HCl (Versed) 1 mg 1X ONCE IV Last administered on 05/15/19at 14:30; Start 05/15/19 at 14:30; Stop 05/15/19 at 14:38; Status DC Fentanyl Citrate (Fentanyl 2ml Vial) 50 mcg 1X ONCE IV Last administered on 05/15/19at 14:30; Start 05/15/19 at 14:30; Stop 05/15/19 at 14:38; Status DC Insulin Human Lispro (HumaLOG) 0-9 UNITS TIDWMEALS SQ ; Start 05/16/19 at 17:00; Stop 05/16/19 at 13:29; Status DC Dextrose (Dextrose 50%-Water Syringe) 12.5 gm PRN Q15MIN PRN IV SEE COMMENTS; Start 05/16/19 at 13:15 Insulin Human Regular (HumuLIN R VIAL) 8 unit 1X ONCE IV Last administered on 05/16/19at 13:36; Start 05/16/19 at 13:15; Stop 05/16/19 at 13:22; Status DC Insulin Human Lispro (HumaLOG) 0-9 UNITS Q6HRS SQ Last administered on 05/17/19at 05:50; Start 05/16/19 at 18:00 Sodium Chloride 90 meq/Potassium Chloride 50 meq/ Potassium Phosphate 13.6 mmol/Magnesium Sulfate 10 meq/ Calcium Gluconate 10 meq/ Multivitamins 10 ml/Chromium/ Copper/Manganese/ Seleni/Zn 1 ml/ Total Parenteral Nutrition/Amino Acids/Dextrose/ Fat Emulsion Intravenous 1,512 ml @ 63 mls/hr TPN CONT IV Last administered on 05/16/19at 21:56; Start 05/16/19 at 22:00; Stop 05/17/19 at 21:59 Sodium Chloride 1,000 ml @ 75 mls/hr [id number] IV Last administered on 05/17/19at 05:14; Start 05/16/19 at 14:45 Insulin Glargine (Lantus Syringe) 22 unit QHS SQ ; Start 05/17/19 at 08:30 Labetalol HCl (Normodyne Iv Push) 10 mg PRN Q2HR PRN IVP HYPERTENSION; Start 05/17/19 at 08:30 Insulin Glargine (Lantus Syringe) 10 unit 1X STAT SQ Last administered on 05/17/19at 09:13; Start 05/17/19 at 08:30; Stop 05/17/19 at 08:33; Status DC Active Scripts Active Reported Venlafaxine Hcl Er (Venlafaxine Hcl) 75 Mg Cap.er.24h 75 Mg PO DAILY Simvastatin 10 Mg Tablet 10 Mg PO DAILY Metformin Hcl 1,000 Mg Tablet 1,000 Mg PO BIDWMEALS Meloxicam 15 Mg Tablet Unknown Dose PO DAILY Lisinopril 10 Mg Tablet Unknown Dose PO DAILY Humalog (Insulin Lispro) 100 Unit/1 Ml Cartridge 100 Unit SQ Sinemet 25-100 Mg Tablet (Carbidopa/Levodopa) 1 Each Tablet 1 Tab PO TID Vitals/I & O Vital Sign - Last 24 Hours 05/16/19 05/16/19 05/16/19 05/16/19 10:00 11:00 12:00 12:00 Temp 98.0 98.0 Pulse 90 90 91 Resp 22 19 22 B/P (MAP) 160/77 (104) 160/77 (104) 144/64 (90) Pulse Ox 95 94 96 O2 Delivery Nasal Cannula Nasal Cannula Nasal Cannula Nasal Cannula O2 Flow Rate 2.0 2.0 2.0 2.0 05/16/19 05/16/19 05/16/19 05/16/19 13:00 14:00 14:59 15:00 Pulse 92 101 96 Resp 21 22 20 B/P (MAP) 136/70 (92) 136/71 (92) 128/78 (95) Pulse Ox 97 98 94 95 O2 Delivery Nasal Cannula Nasal Cannula Nasal Cannula Nasal Cannula O2 Flow Rate 2.0 2.0 4.0 2.0 05/16/19 05/16/19 05/16/19 05/16/19 16:09 19:40 19:55 21:05 Temp 97.4 98.8 97.4 98.8 Pulse 62 85 Resp 18 20 B/P (MAP) 114/50 (71) 133/61 (85) Pulse Ox 96 93 95 O2 Delivery Nasal Cannula Nasal Cannula Nasal Cannula Nasal Cannula O2 Flow Rate 2.0 3.0 3.0 2.0 05/16/19 05/17/19 05/17/19 05/17/19 23:55 03:56 07:00 07:17 Temp 98.8 98.2 98.7 98.8 98.2 98.7 Pulse 88 80 63 Resp 20 20 16 B/P (MAP) 134/56 (82) 146/49 (81) 152/57 (88) Pulse Ox 94 95 92 95 O2 Delivery Nasal Cannula Nasal Cannula Room Air Nasal Cannula O2 Flow Rate 2.0 2.0 2.0 Intake and Output 05/16/19 05/16/19 05/17/19 15:00 23:00 07:00 Intake Total 150 ml 100 ml Output Total 855 ml 390 ml 1300 ml Balance -705 ml -390 ml -1200 ml HARITHA LARA MD May 17, 2019 09:56
[2019-05-17 11:00] VITALS: BP 138/70
[2019-05-17] MEDS: MICAFUNGIN 100 MG in IV DEXTROSE 5% 100ML 100 ML IV SCH (11:02)
--- NOTE | 2019-05-17 11:26 | PDOC ---
SURGICAL PROGRESS NOTE Subjective up to chair watching [employer] in room would like a "small can of Xiomara Almonte" Vital Signs Vital Signs Date Time Temp Pulse Resp B/P (MAP) Pulse Ox O2 Delivery O2 Flow Rate FiO2 05/17/19 11:13 Room Air 05/17/19 07:17 95 2.0 05/17/19 07:00 98.7 63 16 152/57 (88) 98.7 I&O Intake and Output 05/17/19 07:00 Intake Total 250 ml Output Total 2545 ml Balance -2295 ml Intake Oral 100 ml IV Total 150 ml Output Urine Total 2025 ml Drainage Total 520 ml PATIENT HAS A FENTON: No General: Alert Abdomen: Soft, Other (small volume bilious output in MACKENZIE bulbs) Labs Laboratory Tests Test 05/15/19 13:21 05/15/19 13:30 05/15/19 15:07 05/15/19 21:38 Glucose (Fingerstick) 248 mg/dL (70-99) 217 mg/dL (70-99) Prothrombin Time 16.9 SEC (11.7-14.0) Prothromb Time International Ratio 1.4 (0.8-1.1) Lactic Acid Level 1.1 mmol/L (0.4-2.0) Troponin I Quantitative < 0.017 ng/mL (0.000-0.055) Test 05/16/19 05:11 05/16/19 05:15 05/16/19 12:27 05/16/19 18:06 Glucose (Fingerstick) 317 mg/dL (70-99) 320 mg/dL (70-99) 288 mg/dL (70-99) White Blood Count 21.2 x10^3/uL (4.0-11.0) Red Blood Count 2.99 x10^6/uL (4.30-5.70) Hemoglobin 9.3 g/dL (13.0-17.5) Hematocrit 28.4 % (39.0-53.0) Mean Corpuscular Volume 95 fL (79-100) Mean Corpuscular Hemoglobin 31 pg (25-35) Mean Corpuscular Hemoglobin Concent 33 g/dL (31-37) Red Cell Distribution Width 14.4 % (11.5-14.5) Platelet Count 331 x10^3/uL (140-400) Neutrophils (%) (Auto) 90 % (31-73) Lymphocytes (%) (Auto) 5 % (24-48) Monocytes (%) (Auto) 5 % (0-9) Eosinophils (%) (Auto) 0 % (0-3) Basophils (%) (Auto) 0 % (0-3) Neutrophils # (Auto) 19.0 x10^3/uL (1.8-7.7) Lymphocytes # (Auto) 1.0 x10^3/uL (1.0-4.8) Monocytes # (Auto) 1.1 x10^3/uL (0.0-1.1) Eosinophils # (Auto) 0.0 x10^3/uL (0.0-0.7) Basophils # (Auto) 0.1 x10^3/uL (0.0-0.2) Sodium Level 140 mmol/L (136-145) Potassium Level 4.1 mmol/L (3.5-5.1) Chloride Level 106 mmol/L (98-107) Carbon Dioxide Level 22 mmol/L (21-32) Anion Gap 12 (6-14) Blood Urea Nitrogen 53 mg/dL (8-26) Creatinine 1.7 mg/dL (0.7-1.3) Estimated GFR (Cockcroft-Gault) 39.7 BUN/Creatinine Ratio 31 (6-20) Glucose Level 345 mg/dL (70-99) Calcium Level 8.8 mg/dL (8.5-10.1) Phosphorus Level 3.4 mg/dL (2.6-4.7) Magnesium Level 2.3 mg/dL (1.8-2.4) Total Bilirubin 0.4 mg/dL (0.2-1.0) Aspartate Amino Transf (AST/SGOT) 31 U/L (15-37) Alanine Aminotransferase (ALT/SGPT) 39 U/L (16-63) Alkaline Phosphatase 97 U/L (46-116) Total Protein 6.1 g/dL (6.4-8.2) Albumin 1.9 g/dL (3.4-5.0) Albumin/Globulin Ratio 0.5 (1.0-1.7) Test 05/16/19 22:22 05/17/19 00:06 05/17/19 05:56 05/17/19 06:15 Glucose (Fingerstick) 297 mg/dL (70-99) 340 mg/dL (70-99) 310 mg/dL (70-99) Sodium Level 142 mmol/L (136-145) Potassium Level 4.4 mmol/L (3.5-5.1) Chloride Level 112 mmol/L (98-107) Carbon Dioxide Level 21 mmol/L (21-32) Anion Gap 9 (6-14) Blood Urea Nitrogen 48 mg/dL (8-26) Creatinine 1.6 mg/dL (0.7-1.3) Estimated GFR (Cockcroft-Gault) 42.6 Glucose Level 344 mg/dL (70-99) Calcium Level 8.7 mg/dL (8.5-10.1) Phosphorus Level 3.1 mg/dL (2.6-4.7) Magnesium Level 2.1 mg/dL (1.8-2.4) Laboratory Tests Test 05/16/19 12:27 05/16/19 18:06 05/16/19 22:22 05/17/19 00:06 Glucose (Fingerstick) 320 mg/dL (70-99) 288 mg/dL (70-99) 297 mg/dL (70-99) 340 mg/dL (70-99) Test 05/17/19 05:56 05/17/19 06:15 Glucose (Fingerstick) 310 mg/dL (70-99) Sodium Level 142 mmol/L (136-145) Potassium Level 4.4 mmol/L (3.5-5.1) Chloride Level 112 mmol/L (98-107) Carbon Dioxide Level 21 mmol/L (21-32) Anion Gap 9 (6-14) Blood Urea Nitrogen 48 mg/dL (8-26) Creatinine 1.6 mg/dL (0.7-1.3) Estimated GFR (Cockcroft-Gault) 42.6 Glucose Level 344 mg/dL (70-99) Calcium Level 8.7 mg/dL (8.5-10.1) Phosphorus Level 3.1 mg/dL (2.6-4.7) Magnesium Level 2.1 mg/dL (1.8-2.4) Problem List Problems Medical Problems: (1) Perforated intestine, nontraumatic Status: Acute Assessment/Plan s/p closure perforated ulcer continue supportive care hold off on po other than ice chips CLIFFORD WONG MD May 17, 2019 11:25
[2019-05-17] MEDS: TPN PER PHARMACY MC PRN (12:19)
--- NOTE | 2019-05-17 12:20 | NUR ---
Pharmacy TPN Dosing Note S: MORIAH BARRAGAN is a 73 year old M Currently receiving Central Continuous TPN started 05/15/19 B:Pertinent PMH: Perforated duodenal ulcer Height: 5 feet, 10 inches Weight: 103.918631 kg Current diet: NPO LABS: Sodium: 142 Potassium: 4.4 Chloride: 112 Calcium: 8.7 Corrected Calcium: 10.38 Magnesium: 2.1 CO2: 21 SCr: 1.6 Glucose: 344 Albumin: 1.9 AST: 31 ALT: 39 TPN FORMULA: TPN TYPE: Central Continuous AMINO ACIDS: 60 gm DEXTROSE: 195 gm LIPIDS: 20 gm SODIUM CHLORIDE: 60 mEq SODIUM ACETATE: mEq SODIUM PHOSPHATE: mmol POTASSIUM CHLORIDE: 30 mEq POTASSIUM ACETATE: mEq POTASSIUM PHOSPHATE: 13.6 mmol MAGNESIUM: 10 mEq CALCIUM: 10 mEq INSULIN: units MULTIPLE VITAMIN: 10 ml TRACE ELEMENTS: 1 ml(s) TPN PLAN: -Glucose elevated, insulins being adjusted by primary outside of TPN -Sodium and potassium creeping up, will reduce both slightly R: Continue TPN as written above. Will monitor electrolytes, glucose, and tolerance to TPN. DEBBY ALLEN [facility], 05/17/19 0069
[2019-05-17] MEDS: DAPTOmycin (GENERIC) IVPB 570 MG in IV NORMAL SALINE 50ML 50 ML IV SCH (13:03)
[2019-05-17] MEDS: PANTOPRAZOLE IV PUSH 40 MG VIAL. IVP SCH (13:12)
[2019-05-17 15:00] VITALS: BP 148/77
--- NOTE | 2019-05-17 15:51 | PDOC ---
Renal-Progress Notes Subjective Notes Notes NO NEW COMPLAINTS History of Present Illness Hx of present illness STABLE Vitals Vitals Vital Signs Date Time Temp Pulse Resp B/P (MAP) Pulse Ox O2 Delivery O2 Flow Rate FiO2 05/17/19 15:11 Room Air 05/17/19 15:00 99.0 93 16 148/77 (100) 95 99.0 05/17/19 07:17 2.0 Weight Weight [ ] I.O. Intake and Output Intake and Output 05/17/19 07:00 Intake Total 250 ml Output Total 2545 ml Balance -2295 ml Intake Oral 100 ml IV Total 150 ml Output Urine Total 2025 ml Drainage Total 520 ml Labs Labs Laboratory Tests Test 05/16/19 18:06 05/16/19 22:22 05/17/19 00:06 05/17/19 05:56 Glucose (Fingerstick) 288 mg/dL (70-99) 297 mg/dL (70-99) 340 mg/dL (70-99) 310 mg/dL (70-99) Test 05/17/19 06:15 05/17/19 12:53 Sodium Level 142 mmol/L (136-145) Potassium Level 4.4 mmol/L (3.5-5.1) Chloride Level 112 mmol/L (98-107) Carbon Dioxide Level 21 mmol/L (21-32) Anion Gap 9 (6-14) Blood Urea Nitrogen 48 mg/dL (8-26) Creatinine 1.6 mg/dL (0.7-1.3) Estimated GFR (Cockcroft-Gault) 42.6 Glucose Level 344 mg/dL (70-99) Calcium Level 8.7 mg/dL (8.5-10.1) Phosphorus Level 3.1 mg/dL (2.6-4.7) Magnesium Level 2.1 mg/dL (1.8-2.4) Glucose (Fingerstick) 330 mg/dL (70-99) Micro Micro Microbiology 05/15/19 AFB Specimen Processing Tissue - Final, Resulted 05/15/19 Acid Fast Bacilli Culture, Resulted Pending 05/15/19 Gram Stain - Final, Resulted 05/15/19 Fungal Culture, Resulted Pending 05/15/19 Fungal Culture Result 1, Resulted Pending Review of Systems Constitutional: yes: alert, oriented Ears/Nose/Throat: Yes: no symptom reported Eyes: Yes: no symptom reported Gastrointestional: Yes: abdominal pain Genitourinary: Yes: no symptom reported Musculoskeletal: Yes: no symptom reported Skin: Yes no symptom reported Psychiatric/Neurological: Yes: no symptom reported Endocrine: Yes: no symptom reported Physical Exam General Appearance: no apparent distress Skin: warm Respiratory: decreased breath sounds Abdomen: soft, tenderness Genitourinary: bladder flat Neurology: alert, oriented, follow commands Musculoskeletal: Osteoarthritis Assessment Assessment IMP GREGG-IMPROVED AND STABLE WITH CR OF 1.6 S/P REPAIR OF PERFORATED ULCER NON OBSTRUCTING RIGHT RENAL CALCULUS PLAN CONT TPN LABS IN AM WILL FOLLOW ANYI BOOTH MD May 17, 2019 15:51
--- NOTE | 2019-05-17 18:05 | PDOC ---
PULMONARY PROGRESS NOTES Subjective resting comfortably. not short of brreath. no cough. Vitals Vital Signs Date Time Temp Pulse Resp B/P (MAP) Pulse Ox O2 Delivery O2 Flow Rate FiO2 05/17/19 15:11 Room Air 05/17/19 15:00 99.0 93 16 148/77 (100) 95 99.0 05/17/19 07:17 2.0 ROS: No Chest Pain, No Increase Cough General: Alert, Oriented X4 HEENT: Other (nc at perrl nose throat clear neck no lad no thyromegaly) Lungs: Clear, Other (deminished bs) Cardiovascular: S1, S2 Abdomen: Soft, Non-tender, Other (no mass) Neuro Exam: Alert Extremities: No Edema Skin: Warm Labs Laboratory Tests Test 05/15/19 21:38 05/16/19 05:11 05/16/19 05:15 05/16/19 12:27 Glucose (Fingerstick) 217 mg/dL (70-99) 317 mg/dL (70-99) 320 mg/dL (70-99) White Blood Count 21.2 x10^3/uL (4.0-11.0) Red Blood Count 2.99 x10^6/uL (4.30-5.70) Hemoglobin 9.3 g/dL (13.0-17.5) Hematocrit 28.4 % (39.0-53.0) Mean Corpuscular Volume 95 fL (79-100) Mean Corpuscular Hemoglobin 31 pg (25-35) Mean Corpuscular Hemoglobin Concent 33 g/dL (31-37) Red Cell Distribution Width 14.4 % (11.5-14.5) Platelet Count 331 x10^3/uL (140-400) Neutrophils (%) (Auto) 90 % (31-73) Lymphocytes (%) (Auto) 5 % (24-48) Monocytes (%) (Auto) 5 % (0-9) Eosinophils (%) (Auto) 0 % (0-3) Basophils (%) (Auto) 0 % (0-3) Neutrophils # (Auto) 19.0 x10^3/uL (1.8-7.7) Lymphocytes # (Auto) 1.0 x10^3/uL (1.0-4.8) Monocytes # (Auto) 1.1 x10^3/uL (0.0-1.1) Eosinophils # (Auto) 0.0 x10^3/uL (0.0-0.7) Basophils # (Auto) 0.1 x10^3/uL (0.0-0.2) Sodium Level 140 mmol/L (136-145) Potassium Level 4.1 mmol/L (3.5-5.1) Chloride Level 106 mmol/L (98-107) Carbon Dioxide Level 22 mmol/L (21-32) Anion Gap 12 (6-14) Blood Urea Nitrogen 53 mg/dL (8-26) Creatinine 1.7 mg/dL (0.7-1.3) Estimated GFR (Cockcroft-Gault) 39.7 BUN/Creatinine Ratio 31 (6-20) Glucose Level 345 mg/dL (70-99) Calcium Level 8.8 mg/dL (8.5-10.1) Phosphorus Level 3.4 mg/dL (2.6-4.7) Magnesium Level 2.3 mg/dL (1.8-2.4) Total Bilirubin 0.4 mg/dL (0.2-1.0) Aspartate Amino Transf (AST/SGOT) 31 U/L (15-37) Alanine Aminotransferase (ALT/SGPT) 39 U/L (16-63) Alkaline Phosphatase 97 U/L (46-116) Total Protein 6.1 g/dL (6.4-8.2) Albumin 1.9 g/dL (3.4-5.0) Albumin/Globulin Ratio 0.5 (1.0-1.7) Test 05/16/19 18:06 05/16/19 22:22 05/17/19 00:06 05/17/19 05:56 Glucose (Fingerstick) 288 mg/dL (70-99) 297 mg/dL (70-99) 340 mg/dL (70-99) 310 mg/dL (70-99) Test 05/17/19 06:15 05/17/19 12:53 Sodium Level 142 mmol/L (136-145) Potassium Level 4.4 mmol/L (3.5-5.1) Chloride Level 112 mmol/L (98-107) Carbon Dioxide Level 21 mmol/L (21-32) Anion Gap 9 (6-14) Blood Urea Nitrogen 48 mg/dL (8-26) Creatinine 1.6 mg/dL (0.7-1.3) Estimated GFR (Cockcroft-Gault) 42.6 Glucose Level 344 mg/dL (70-99) Calcium Level 8.7 mg/dL (8.5-10.1) Phosphorus Level 3.1 mg/dL (2.6-4.7) Magnesium Level 2.1 mg/dL (1.8-2.4) Glucose (Fingerstick) 330 mg/dL (70-99) Laboratory Tests Test 05/16/19 18:06 05/16/19 22:22 05/17/19 00:06 05/17/19 05:56 Glucose (Fingerstick) 288 mg/dL (70-99) 297 mg/dL (70-99) 340 mg/dL (70-99) 310 mg/dL (70-99) Test 05/17/19 06:15 05/17/19 12:53 Sodium Level 142 mmol/L (136-145) Potassium Level 4.4 mmol/L (3.5-5.1) Chloride Level 112 mmol/L (98-107) Carbon Dioxide Level 21 mmol/L (21-32) Anion Gap 9 (6-14) Blood Urea Nitrogen 48 mg/dL (8-26) Creatinine 1.6 mg/dL (0.7-1.3) Estimated GFR (Cockcroft-Gault) 42.6 Glucose Level 344 mg/dL (70-99) Calcium Level 8.7 mg/dL (8.5-10.1) Phosphorus Level 3.1 mg/dL (2.6-4.7) Magnesium Level 2.1 mg/dL (1.8-2.4) Glucose (Fingerstick) 330 mg/dL (70-99) Medications Active Scripts Medications Dose Route/Sig Max Daily Dose Days Date Category Venlafaxine Hcl 75 Mg Tablet Unknown Dose PO DAILY 02/18/19 Reported Simvastatin 10 Mg Tablet 10 Mg PO DAILY 02/18/19 Reported Metformin Hcl 1,000 Mg Tablet 1,000 Mg PO BIDWMEALS 02/18/19 Reported Meloxicam 15 Mg Tablet Unknown Dose PO DAILY 02/18/19 Reported Lisinopril 10 Mg Tablet Unknown Dose PO DAILY 02/18/19 Reported Humalog (Insulin Lispro) 100 Unit/1 Ml Cartridge 100 Unit SQ 02/18/19 Reported Sinemet 25-100 Mg Tablet (Carbidopa/Levodopa) 1 Each Tablet 1 Tab PO TID 02/18/19 Reported Impression . IMPRESSION: 1. status post repair of a perforated duodenal ulcer. 2. Status post laparoscopy with open laparotomy for closure of a duodenal ulcer with Dawood patch. 05/08 3. Acute exacerbation of chronic obstructive pulmonary disease, resolving. 4. Tobacco dependence. 5. Hypertension. 6. Recent right shoulder repair. 7. Hypotension. 8. Fever. 9. Possible sepsis present upon admission. 10. CT-guided abdominal drain placement as described. 05/15 Plan . PULMONARY HYGIENE Nebulized bronchodilators AGREE WITH CURRENT RX D/C SMOKING CONTINUE SUPPORT HEATHER PALOMARES MD May 17, 2019 18:05
[2019-05-17 19:00] VITALS: BP 159/49
--- NOTE | 2019-05-17 20:15 | NUR ---
Patient's MACKENZIE drain flushed with 10ml of NS, patient tolerated well.
[2019-05-17] MEDS: SIMVASTATIN 10 MG TABLET PO SCH (20:49)
[2019-05-17] MEDS ORDERED: TOTAL PARENTERAL NUTRITION IV SCH ×10 (22:00)
[2019-05-17] MEDS ORDERED: [UNRECOGNIZED DRUG - OTHER] IV SCH ×10 (22:00)
[2019-05-17] MEDS ORDERED: AMINO ACID IV SCH ×10 (22:00)
[2019-05-17] MEDS ORDERED: DEXTROSE 70% IV SCH ×10 (22:00)
--- NOTE | 2019-05-17 22:28 | NUR ---
paged re: increase in patient's hallucinations as patient believes he is, "...in fdc" and "...blueberry muffins are walking in my room". Despite redirection patient remains confused and delirious. Orders rcvd. and patient remains in bed, bed in lowest/locked position, bed alarm on and call light within reach, will continue to monitor.
[2019-05-17] MEDS ORDERED: HALOPERIDOL LACTATE 5 MG/ML VIAL. IM ONE (22:30)
[2019-05-17] MEDS ORDERED: HALOPERIDOL LACTATE 5 MG/ML VIAL. IVP ONE (22:45)
[2019-05-17 23:00] VITALS: BP 142/62
[2019-05-18] MEDS: INSULIN LISPRO 300 UNITS/3 ML VIAL. SQ SCH ×5 (00:10→23:20)
--- NOTE | 2019-05-18 01:15 | NUR ---
Patient's bed alarm sounding and patient found with legs out of bed. At this time, NG tube was in patient's hand and removed from wall suction canister. Patient re-orientated to room, NG tube re-attached to suction and patient placed back into bed. Patient's bed remains in lowest/locked position with bed alarm on, will continue to monitor.
--- NOTE | 2019-05-18 01:25 | NUR ---
Melanie RN responded to patient's bed alarm sounding and found patient's TPN leaking from IV pump as patient had attempted to tear tubing from pump and leave bed. IV tubing replaced and PICC line remains intact. MD notified of patient's increasing anxiety, agitation, and restlessness, PRN orders rcvd. Patient's vitals remain stable and NG tube in place, bed in lowest/locked position and bed alarm on, will continue to monitor.
[2019-05-18 03:00] VITALS: BP 123/59
--- NOTE | 2019-05-18 03:15 | NUR ---
After additional attempts to pull out IV tubing connected to PICC line, safety mittens placed on patient. Patient remains restless and tachycardic with all other vitals stable at this time, will continue to monitor.
--- NOTE | 2019-05-18 04:05 | NUR ---
MD notified of increased anxiety, restlessness, and agitation as patient continues to attempt to get out of bed on own, orders rcvd. will continue to monitor.
[2019-05-18] MEDS ORDERED: HALOPERIDOL LACTATE 5 MG/ML VIAL. IVP ONE (04:30)
[2019-05-18 05:53] LABS: BASO # 0.1 x10^3/uL (0.0-0.2); BASO % 1 % (0-3); EOS # 0.1 x10^3/uL (0.0-0.7); EOS % 1 % (0-3); HEMATOCRIT 25.7 % (39.0-53.0); HEMOGLOBIN 8.2 g/dL (13.0-17.5); LYMPH # 1.1 x10^3/uL (1.0-4.8); LYMPH % 7 % (24-48); MEAN CORPUSCULAR HEMOGLOBIN 31 pg (25-35); MEAN CORPUSCULAR HGB CONC 32 g/dL (31-37); MEAN CORPUSCULAR VOLUME 96 fL (79-100); MONO # 1.1 x10^3/uL (0.0-1.1); MONO % 8 % (0-9); NEUT # 12.1 x10^3/uL (1.8-7.7); NEUT % 84 % (31-73); PLATELET COUNT 387 x10^3/uL (140-400); RED BLOOD COUNT 2.68 x10^6/uL (4.30-5.70); RED CELL DISTRIBUTION WIDTH 14.9 % (11.5-14.5); WHITE BLOOD COUNT 14.5 x10^3/uL (4.0-11.0)
[2019-05-18] MEDS: IPRATRPIUM/ALBUTEROL 0.5/2.5MG 3 ML NEBU. NEB SCH ×4 (06:21→20:04)
[2019-05-18] MEDS: BUDESONIDE 0.5 MG/2 ML NEBU. NEB SCH ×2 (06:21→20:04)
[2019-05-18 06:23] LABS: MAGNESIUM 1.9 mg/dL (1.8-2.4); PHOSPHORUS 2.8 mg/dL (2.6-4.7)
[2019-05-18] MEDS: CEFEPIME HCL IV Push 2 GM VIAL. IVP SCH (06:25)
[2019-05-18] MEDS: PANTOPRAZOLE IV PUSH 40 MG VIAL. IVP SCH ×2 (06:28→06:37)
[2019-05-18] MEDS: IV NORMAL SALINE 1000ML BAG 1,000 ML IV SCH (06:37)
[2019-05-18 07:02] LABS: CALCIUM 8.8 mg/dL (8.5-10.1); CREATININE 1.6 mg/dL (0.7-1.3); GFR 42.6; POTASSIUM 4.9 mmol/L (3.5-5.1)
[2019-05-18 07:30] VITALS: BP 147/54
[2019-05-18] MEDS ORDERED: INSULIN GLARGINE SYRINGE. SQ STA (07:47)
--- NOTE | 2019-05-18 08:21 | PDOC ---
Infectious Disease Note Subjective Subjective S/p ativian and Haldol. Developed Delirium overnight ROS ROS unable to obtain Vital Sign Vital Signs Vital Signs Date Time Temp Pulse Resp B/P (MAP) Pulse Ox O2 Delivery O2 Flow Rate FiO2 05/18/19 06:21 95 Nasal Cannula 2.0 05/18/19 03:00 97.9 94 18 123/59 (80) 97.9 Physical Exam PHYSICAL EXAM GENERAL: Laying in bed, alert, NAD - calm HEENT: Pupils equally round. Oropharynx is clear. NGT NECK: Supple. LUNGS: Clear to auscultation. HEART: S1, S2 regular. ABDOMEN: Obese, soft, less distension. NT with hypoactive bowel sounds. Surgical dressings are dry and MACKENZIE drain intact- with continued bilious drainage. New MACKENZIE with serous fluid EXTREMITIES: No gross edema or cyanosis.. Right shoulder incision well-approx stable, clean. SKIN: Warm to touch. No signs of rash. NEUROLOGIC: Alert and oriented x3. LUE - clean Labs Lab Laboratory Tests Test 05/17/19 12:53 05/17/19 18:15 05/17/19 20:39 05/18/19 00:05 Glucose (Fingerstick) 330 mg/dL (70-99) 305 mg/dL (70-99) 284 mg/dL (70-99) 304 mg/dL (70-99) Test 05/18/19 05:40 White Blood Count 14.5 x10^3/uL (4.0-11.0) Red Blood Count 2.68 x10^6/uL (4.30-5.70) Hemoglobin 8.2 g/dL (13.0-17.5) Hematocrit 25.7 % (39.0-53.0) Mean Corpuscular Volume 96 fL (79-100) Mean Corpuscular Hemoglobin 31 pg (25-35) Mean Corpuscular Hemoglobin Concent 32 g/dL (31-37) Red Cell Distribution Width 14.9 % (11.5-14.5) Platelet Count 387 x10^3/uL (140-400) Neutrophils (%) (Auto) 84 % (31-73) Lymphocytes (%) (Auto) 7 % (24-48) Monocytes (%) (Auto) 8 % (0-9) Eosinophils (%) (Auto) 1 % (0-3) Basophils (%) (Auto) 1 % (0-3) Neutrophils # (Auto) 12.1 x10^3/uL (1.8-7.7) Lymphocytes # (Auto) 1.1 x10^3/uL (1.0-4.8) Monocytes # (Auto) 1.1 x10^3/uL (0.0-1.1) Eosinophils # (Auto) 0.1 x10^3/uL (0.0-0.7) Basophils # (Auto) 0.1 x10^3/uL (0.0-0.2) Sodium Level 148 mmol/L (136-145) Potassium Level 4.9 mmol/L (3.5-5.1) Chloride Level 116 mmol/L (98-107) Carbon Dioxide Level 20 mmol/L (21-32) Anion Gap 12 (6-14) Blood Urea Nitrogen 36 mg/dL (8-26) Creatinine 1.6 mg/dL (0.7-1.3) Estimated GFR (Cockcroft-Gault) 42.6 Glucose Level 259 mg/dL (70-99) Calcium Level 8.8 mg/dL (8.5-10.1) Phosphorus Level 2.8 mg/dL (2.6-4.7) Magnesium Level 1.9 mg/dL (1.8-2.4) Micro CT Impression: 05/14 1. Extravasation of oral contrast within the right upper quadrant extending from the first portion of the duodenum, concerning for persistent duodenal perforation. Scattered pneumoperitoneum. 2. Increased loculated fluid within the right mid abdomen adjacent to small bowel loops with wall thickening. 3. Increased mesenteric edema and body wall edema. 4. Small right pleural effusion with adjacent atelectasis. 5. Tiny focus of gas within the urinary bladder, likely related to recent instrumentation. Objective Assessment Acute Encephalopathy - Possibly Cefepime Perforated duodenal ulcer s/p repair, 05/08 no apparent cultures S/p Abd drain placed 05/15 sce to fluid collection Fever - times one post procedure 05/15 - improved now Leukocytosis - better today- initial Pancytopenia ? in part reactive Abx allergy: Sulfa and cipro w/ rash Acute respiratory failure, now on venti mask -s/p Bronchoscopy with BAL, 05/09. mucous plugging, culture pending GREGG -mild increase Nonobstructing calculus of the right kidney. Recent right shoulder joint replacement, 05/06 at [facility] Plan of Care Discontinued Zosyn and fluconazole 05/14 given worsening pain and WBC Started Dapto/Cefepime/Flagyl/Micafungin with leukocytosis 05/14 however, now given Encephalopathy 05/18 will d/c Cefepime/flagyl and try meropenem. F/u cults and taper abx as possible Further encephalopathy eval per primary f/u cultures/labs in am Await further surgical eval D/w nursing YULIANA ONEAL MD May 18, 2019 08:21
[2019-05-18] MEDS: VENLAFAXINE XR 37.5 MG CAP.ER.24H. PO SCH (09:00)
[2019-05-18] MEDS: MEROPENEM 500 MG in IV NORMAL SALINE 50ML 50 ML IV SCH ×4 (09:00→23:55)
[2019-05-18] MEDS: PRIMIDONE 50 MG TABLET PO SCH ×2 (09:00→20:08)
[2019-05-18] MEDS: HEPARIN for SUB-Q USE 5,000 UNIT/ML VIAL. SQ SCH ×2 (09:00→22:08)
[2019-05-18] MEDS: LACTOBACILLUS RHAMNOSUS GG 1 CAPSULE. PO SCH ×2 (09:00→20:08)
--- NOTE | 2019-05-18 09:54 | PDOC ---
PROGRESS NOTES Chief Complaint Chief Complaint A/P: s/p perf viscus repair 05/09 05/14 CTExtravasation of oral contrast within the right upper quadrant extending from the first portion of the duodenum, concerning for persistent duodenal perforation. Scattered pneumoperitoneum. Increased loculated fluid within the right mid abdomen adjacent to small bowel loops with wall thickening. Increased mesenteric edema and body wall edema. SEVERE SEPSIS Begin Dapto/Cefepime/Flagyl/Micafungin with leukocytosis and increased MACKENZIE drainage despite abx CT 05/14 with extravasation Severe protein-caloric malnutrition GREGG - likely vasomotor nephropathy Perforated duodenal ulcer - Diagnostic laparoscopy with open laparotomy and closure of duodenal ulcer and Dawood patch 05-09 Small amount of ascites is seen within the abdomen and pelvis HTN, Fair control Acute hypoxemic respiratory failure Acute exacerbation of chronic obstructive pulmonary disease. Tobacco dependence. 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 History of Present Illness History of Present Illness MUltiple doses ativan and haldol last night - TOTAL change from his demeanor when i saw him yesterday BS high, home regimen is 35 qhs STill NGT and nPO per GS t.o icu after repair of perf DU - laparoscopic PLAN: inc to 35 units qhs long acting Sitter now HAldol prn and ativan prn CHeck KUB and CXR - pt unable to tell us what is wrong - he does have hx parkinons and is missing his PO meds bec NPO FULL CODE SLated for mARH on dc dw RN Cleopatra Vitals Vitals Vital Signs Date Time Temp Pulse Resp B/P (MAP) Pulse Ox O2 Delivery O2 Flow Rate FiO2 05/18/19 07:30 100.0 116 22 147/54 (85) 94 Nasal Cannula 2.0 100.0 Physical Exam Physical Exam GENERAL: Laying in bed, alert, NAD - calm HEENT: Pupils equally round. Oropharynx is clear. NGT NECK: Supple. LUNGS: Clear to auscultation. HEART: S1, S2 regular. ABDOMEN: Obese, soft, less distension. NT with hypoactive bowel sounds. Surgical dressings are dry and MACKENZIE drain intact- with continued bilious drainage. New MACKENZIE with serous fluid EXTREMITIES: No gross edema or cyanosis.. Right shoulder incision well-approx stable, clean. SKIN: Warm to touch. No signs of rash. NEUROLOGIC: Alert and oriented x3. LUE - clean General: Alert Heart: Regular rate (SR), Other (distant heart sounds) Lungs: Clear, Other (deminished bs) Abdomen: Soft, Other (small volume bilious output in MACKENZIE bulbs) Extremities: No clubbing, No cyanosis, No edema, Normal pulses, No tenderness/swelling Skin: Other (abdominal surgical incision) Labs LABS Laboratory Tests Test 05/17/19 12:53 05/17/19 18:15 05/17/19 20:39 05/18/19 00:05 Glucose (Fingerstick) 330 mg/dL (70-99) 305 mg/dL (70-99) 284 mg/dL (70-99) 304 mg/dL (70-99) Test 05/18/19 05:40 White Blood Count 14.5 x10^3/uL (4.0-11.0) Red Blood Count 2.68 x10^6/uL (4.30-5.70) Hemoglobin 8.2 g/dL (13.0-17.5) Hematocrit 25.7 % (39.0-53.0) Mean Corpuscular Volume 96 fL (79-100) Mean Corpuscular Hemoglobin 31 pg (25-35) Mean Corpuscular Hemoglobin Concent 32 g/dL (31-37) Red Cell Distribution Width 14.9 % (11.5-14.5) Platelet Count 387 x10^3/uL (140-400) Neutrophils (%) (Auto) 84 % (31-73) Lymphocytes (%) (Auto) 7 % (24-48) Monocytes (%) (Auto) 8 % (0-9) Eosinophils (%) (Auto) 1 % (0-3) Basophils (%) (Auto) 1 % (0-3) Neutrophils # (Auto) 12.1 x10^3/uL (1.8-7.7) Lymphocytes # (Auto) 1.1 x10^3/uL (1.0-4.8) Monocytes # (Auto) 1.1 x10^3/uL (0.0-1.1) Eosinophils # (Auto) 0.1 x10^3/uL (0.0-0.7) Basophils # (Auto) 0.1 x10^3/uL (0.0-0.2) Sodium Level 148 mmol/L (136-145) Potassium Level 4.9 mmol/L (3.5-5.1) Chloride Level 116 mmol/L (98-107) Carbon Dioxide Level 20 mmol/L (21-32) Anion Gap 12 (6-14) Blood Urea Nitrogen 36 mg/dL (8-26) Creatinine 1.6 mg/dL (0.7-1.3) Estimated GFR (Cockcroft-Gault) 42.6 Glucose Level 259 mg/dL (70-99) Calcium Level 8.8 mg/dL (8.5-10.1) Phosphorus Level 2.8 mg/dL (2.6-4.7) Magnesium Level 1.9 mg/dL (1.8-2.4) Review of Systems Review of Systems uncooperative hence limited rOS Assessment and Plan Assessmemt and Plan Problems Medical Problems: (1) Perforated intestine, nontraumatic Status: Acute Comment Review of Relevant I have reviewed the following items adriano (where applicable) has been applied. Labs Laboratory Tests Test 05/16/19 12:27 05/16/19 18:06 05/16/19 22:22 05/17/19 00:06 Glucose (Fingerstick) 320 mg/dL (70-99) 288 mg/dL (70-99) 297 mg/dL (70-99) 340 mg/dL (70-99) Test 05/17/19 05:56 05/17/19 06:15 05/17/19 12:53 05/17/19 18:15 Glucose (Fingerstick) 310 mg/dL (70-99) 330 mg/dL (70-99) 305 mg/dL (70-99) Sodium Level 142 mmol/L (136-145) Potassium Level 4.4 mmol/L (3.5-5.1) Chloride Level 112 mmol/L (98-107) Carbon Dioxide Level 21 mmol/L (21-32) Anion Gap 9 (6-14) Blood Urea Nitrogen 48 mg/dL (8-26) Creatinine 1.6 mg/dL (0.7-1.3) Estimated GFR (Cockcroft-Gault) 42.6 Glucose Level 344 mg/dL (70-99) Calcium Level 8.7 mg/dL (8.5-10.1) Phosphorus Level 3.1 mg/dL (2.6-4.7) Magnesium Level 2.1 mg/dL (1.8-2.4) Test 05/17/19 20:39 05/18/19 00:05 05/18/19 05:40 Glucose (Fingerstick) 284 mg/dL (70-99) 304 mg/dL (70-99) White Blood Count 14.5 x10^3/uL (4.0-11.0) Red Blood Count 2.68 x10^6/uL (4.30-5.70) Hemoglobin 8.2 g/dL (13.0-17.5) Hematocrit 25.7 % (39.0-53.0) Mean Corpuscular Volume 96 fL (79-100) Mean Corpuscular Hemoglobin 31 pg (25-35) Mean Corpuscular Hemoglobin Concent 32 g/dL (31-37) Red Cell Distribution Width 14.9 % (11.5-14.5) Platelet Count 387 x10^3/uL (140-400) Neutrophils (%) (Auto) 84 % (31-73) Lymphocytes (%) (Auto) 7 % (24-48) Monocytes (%) (Auto) 8 % (0-9) Eosinophils (%) (Auto) 1 % (0-3) Basophils (%) (Auto) 1 % (0-3) Neutrophils # (Auto) 12.1 x10^3/uL (1.8-7.7) Lymphocytes # (Auto) 1.1 x10^3/uL (1.0-4.8) Monocytes # (Auto) 1.1 x10^3/uL (0.0-1.1) Eosinophils # (Auto) 0.1 x10^3/uL (0.0-0.7) Basophils # (Auto) 0.1 x10^3/uL (0.0-0.2) Sodium Level 148 mmol/L (136-145) Potassium Level 4.9 mmol/L (3.5-5.1) Chloride Level 116 mmol/L (98-107) Carbon Dioxide Level 20 mmol/L (21-32) Anion Gap 12 (6-14) Blood Urea Nitrogen 36 mg/dL (8-26) Creatinine 1.6 mg/dL (0.7-1.3) Estimated GFR (Cockcroft-Gault) 42.6 Glucose Level 259 mg/dL (70-99) Calcium Level 8.8 mg/dL (8.5-10.1) Phosphorus Level 2.8 mg/dL (2.6-4.7) Magnesium Level 1.9 mg/dL (1.8-2.4) Laboratory Tests Test 05/17/19 12:53 05/17/19 18:15 05/17/19 20:39 05/18/19 00:05 Glucose (Fingerstick) 330 mg/dL (70-99) 305 mg/dL (70-99) 284 mg/dL (70-99) 304 mg/dL (70-99) Test 05/18/19 05:40 White Blood Count 14.5 x10^3/uL (4.0-11.0) Red Blood Count 2.68 x10^6/uL (4.30-5.70) Hemoglobin 8.2 g/dL (13.0-17.5) Hematocrit 25.7 % (39.0-53.0) Mean Corpuscular Volume 96 fL (79-100) Mean Corpuscular Hemoglobin 31 pg (25-35) Mean Corpuscular Hemoglobin Concent 32 g/dL (31-37) Red Cell Distribution Width 14.9 % (11.5-14.5) Platelet Count 387 x10^3/uL (140-400) Neutrophils (%) (Auto) 84 % (31-73) Lymphocytes (%) (Auto) 7 % (24-48) Monocytes (%) (Auto) 8 % (0-9) Eosinophils (%) (Auto) 1 % (0-3) Basophils (%) (Auto) 1 % (0-3) Neutrophils # (Auto) 12.1 x10^3/uL (1.8-7.7) Lymphocytes # (Auto) 1.1 x10^3/uL (1.0-4.8) Monocytes # (Auto) 1.1 x10^3/uL (0.0-1.1) Eosinophils # (Auto) 0.1 x10^3/uL (0.0-0.7) Basophils # (Auto) 0.1 x10^3/uL (0.0-0.2) Sodium Level 148 mmol/L (136-145) Potassium Level 4.9 mmol/L (3.5-5.1) Chloride Level 116 mmol/L (98-107) Carbon Dioxide Level 20 mmol/L (21-32) Anion Gap 12 (6-14) Blood Urea Nitrogen 36 mg/dL (8-26) Creatinine 1.6 mg/dL (0.7-1.3) Estimated GFR (Cockcroft-Gault) 42.6 Glucose Level 259 mg/dL (70-99) Calcium Level 8.8 mg/dL (8.5-10.1) Phosphorus Level 2.8 mg/dL (2.6-4.7) Magnesium Level 1.9 mg/dL (1.8-2.4) Microbiology 05/15/19 AFB Specimen Processing Tissue - Final, Resulted 05/15/19 Acid Fast Bacilli Culture, Resulted Pending 05/15/19 Gram Stain - Final, Resulted 05/15/19 Fungal Culture, Resulted Pending 05/15/19 Fungal Culture Result 1, Resulted Pending Medications Current Medications Fentanyl Citrate (Fentanyl 2ml Vial) 50 mcg PRN Q15MIN PRN IV PAIN GREATER THAN 3/10 Last administered on 05/08/19 19:27; Start 05/08/19 at 16:30; Stop 05/08/19 at 21:00; Status DC Sodium Chloride 1,000 ml @ 250 mls/hr Q4H IV Last administered on 05/08/19at 16:54; Start 05/08/19 at 16:19; Stop 05/08/19 at 20:18; Status DC Metoclopramide HCl (Reglan Vial) 10 mg 1X ONCE IVP Last administered on 05/08/19 16:51; Start 05/08/19 at 17:00; Stop 05/08/19 at 17:01; Status DC Diphenhydramine HCl (Benadryl) 25 mg 1X ONCE IVP Last administered on 05/08/19at 16:51; Start 05/08/19 at 17:00; Stop 05/08/19 at 17:01; Status DC Iohexol (Omnipaque 350 Mg/ml) 90 ml 1X ONCE IV Last administered on 05/08/19at 17:45; Start 05/08/19 at 17:30; Stop 05/08/19 at 17:31; Status DC Info (CONTRAST GIVEN -- Rx MONITORING) 1 each PRN DAILY PRN MC SEE COMMENTS; Start 05/08/19 at 17:30; Stop 05/10/19 at 17:29; Status DC Hydromorphone HCl (Dilaudid) 1 mg 1X ONCE IV Last administered on 05/08/19at 18:23; Start 05/08/19 at 18:30; Stop 05/08/19 at 18:31; Status DC Piperacillin Sod/ Tazobactam Sod 3.375 gm/Sodium Chloride 50 ml @ 100 mls/hr 1X ONCE IV Last administered on 05/08/19at 19:06; Start 05/08/19 at 19:00; Stop 05/08/19 at 19:29; Status DC Sodium Chloride 1,000 ml @ 1,000 mls/hr 1X ONCE IV Last administered on 05/08/19at 19:06; Start 05/08/19 at 19:00; Stop 05/08/19 at 19:59; Status DC Ondansetron HCl (Zofran) 4 mg STK-MED ONCE .ROUTE ; Start 05/08/19 at 19:34; Stop 05/08/19 at 19:34; Status DC Propofol 20 ml @ As Directed STK-MED ONCE IV ; Start 05/08/19 at 19:34; Stop 05/08/19 at 19:34; Status DC Lidocaine HCl (Lidocaine Pf 2% Vial) 5 ml STK-MED ONCE .ROUTE ; Start 05/08/19 at 19:34; Stop 05/08/19 at 19:34; Status DC Dexamethasone Sodium Phosphate (Decadron) 4 mg STK-MED ONCE .ROUTE ; Start 05/08/19 at 19:34; Stop 05/08/19 at 19:34; Status DC Fentanyl Citrate (Fentanyl 2ml Vial) 100 mcg STK-MED ONCE .ROUTE ; Start 05/08/19 at 19:34; Stop 05/08/19 at 19:34; Status DC Succinylcholine Chloride (Anectine) 200 mg STK-MED ONCE .ROUTE ; Start 05/08/19 at 19:34; Stop 05/08/19 at 19:34; Status DC Rocuronium [place] (Zemuron) 50 mg STK-MED ONCE .ROUTE ; Start 05/08/19 at 19:34; Stop 05/08/19 at 19:34; Status DC Ondansetron HCl (Zofran) 4 mg PRN Q6HRS PRN IV NAUSEA/VOMITING; Start 05/08/19 at 19:45; Stop 05/08/19 at 23:59; Status DC Fentanyl Citrate (Fentanyl 2ml Vial) 25 mcg PRN Q5MIN PRN IV MILD PAIN 1-3; Start 05/08/19 at 19:45; Stop 05/08/19 at 23:59; Status DC Fentanyl Citrate (Fentanyl 2ml Vial) 50 mcg PRN Q5MIN PRN IV MODERATE TO SEVERE PAIN; Start 05/08/19 at 19:45; Stop 05/08/19 at 23:59; Status DC Ringer's Solution 1,000 ml @ 30 mls/hr Q24H IV Last administered on 05/08/19at 23:06; Start 05/08/19 at 20:00; Stop 05/09/19 at 01:00; Status DC Prochlorperazine Edisylate (Compazine) 5 mg PACU PRN PRN IV NAUSEA, MRX1; Start 05/08/19 at 19:45; Stop 05/08/19 at 23:59; Status DC Insulin Human Lispro (HumaLOG VIAL for OP,RR ONLY) 0-10 units PRN Q1HR PRN SQ PER PROTOCOL; Start 05/08/19 at 19:45; Stop 05/08/19 at 23:59; Status DC Bupivacaine HCl/ Epinephrine Bitart (Sensorcaine-Epi 0.25%-1:[id number] Mpf) 30 ml 1X ONCE INJ Last administered on 05/08/19at 20:32; Start 05/08/19 at 20:00; Stop 05/08/19 at 20:01; Status DC Ketamine HCl (Ketamine) 50 mg STK-MED ONCE .ROUTE ; Start 05/08/19 at 20:12; Stop 05/08/19 at 20:12; Status DC Phenylephrine HCl (PHENYLEPHRINE in 0.9% NACL PF) 1 mg STK-MED ONCE IV ; Start 05/08/19 at 20:33; Stop 05/08/19 at 20:33; Status DC Ephedrine Sulfate (ePHEDrine PF IN SALINE SYRINGE) 50 mg STK-MED ONCE IV ; Start 05/08/19 at 20:36; Stop 05/08/19 at 20:36; Status DC Albumin Human 500 ml @ As Directed STK-MED ONCE IV ; Start 05/08/19 at 20:55; Stop 05/08/19 at 20:55; Status DC Glycopyrrolate (Robinul) 1 mg STK-MED ONCE .ROUTE ; Start 05/08/19 at 21:27; Stop 05/08/19 at 21:27; Status DC Neostigmine Methylsulfate (Neostigmine Methylsulfate) 5 mg STK-MED ONCE .ROUTE ; Start 05/08/19 at 21:27; Stop 05/08/19 at 21:27; Status DC Bupivacaine HCl (Sensorcaine Mpf 0.5%) 30 ml STK-MED ONCE .ROUTE ; Start 05/08/19 at 21:39; Stop 05/08/19 at 21:39; Status DC Epinephrine HCl (Adrenalin) 1 mg STK-MED ONCE .ROUTE ; Start 05/08/19 at 21:39; Stop 05/08/19 at 21:39; Status DC Sevoflurane (Ultane) 60 ml STK-MED ONCE IH ; Start 05/08/19 at 21:44; Stop 05/08/19 at 21:44; Status DC Sodium Chloride 1,000 ml @ 125 mls/hr Q8H IV Last administered on 05/08/19at 23:45; Start 05/08/19 at 22:00; Stop 05/09/19 at 15:21; Status DC Ondansetron HCl (Zofran) 4 mg PRN Q6HRS PRN IVP NAUSEA/VOMITING 1ST CHOICE; Start 05/08/19 at 22:00 Fluconazole/ Sodium Chloride 100 ml @ 100 mls/hr Q24H IV Last administered on 05/13/19at 21:14; Start 05/08/19 at 22:00; Stop 05/14/19 at 10:28; Status DC Hydromorphone HCl (Dilaudid) 1 mg PRN Q4HRS PRN IV SEVERE PAIN 7-10 Last administered on 05/15/19at 20:34; Start 05/08/19 at 22:00 Piperacillin Sod/ Tazobactam Sod 3.375 gm/Sodium Chloride 50 ml @ 100 mls/hr Q6HRS IV Last administered on 05/14/19at 05:49; Start 05/09/19 at 00:00; Stop 05/14/19 at 10:28; Status DC Pantoprazole Sodium (PROTONIX VIAL for IV PUSH) 40 mg DAILY IVP Last administered on 05/11/19at 09:43; Start 05/09/19 at 09:00; Stop 05/12/19 at 08:30; Status DC Insulin Human Regular 150 unit/ Sodium Chloride 151.5 ml @ 0 mls/hr CONT PRN IV SEE I/O RECORD; Start 05/08/19 at 23:00; Status UNV Insulin Human Regular 150 unit/ Sodium Chloride 151.5 ml @ 0 mls/hr CONT PRN IV SEE I/O RECORD Last administered on 05/08/19at 23:03; Start 05/08/19 at 23:00; Stop 05/12/19 at 13:06; Status DC Dextrose (Dextrose 50%-Water Syringe) 12.5 gm PRN Q15MIN PRN IV LOW BLOOD SUGAR; Start 05/08/19 at 23:00; Stop 05/17/19 at 08:35; Status DC Dextrose 250 ml PRN Q15MIN PRN IV LOW BLOOD SUGAR; Start 05/08/19 at 23:00 Albumin Human 500 ml @ 250 mls/hr 1X ONCE IV Last administered on 05/09/19at 00:10; Start 05/09/19 at 00:30; Stop 05/09/19 at 02:29; Status DC Norepinephrine Bitartrate 250 ml @ 20.156 mls/ hr CONT PRN IV SEE I/O RECORD; Start 05/09/19 at 00:00; Stop 05/12/19 at 13:06; Status DC Dextrose/Sodium Chloride 1,000 ml @ 150 mls/hr Q6H40M IV Last administered on 05/09/19at 12:28; Start 05/09/19 at 08:45; Stop 05/09/19 at 18:30; Status DC Sodium Chloride 500 ml @ 500 mls/hr PRN Q2HR PRN IV SEE COMMENTS; Start 1 at 11:15 Sodium Chloride 1,000 ml @ 2,190 mls/hr Q28M IV ; Start 05/09/19 at 12:39; Stop 05/09/19 at 13:39; Status DC Sodium Chloride 500 ml @ 1,000 mls/hr PRN Q30MIN PRN IV SEE COMMENTS; Start 05/09/19 at 12:45; Stop 05/09/19 at 12:50; Status DC Norepinephrine Bitartrate 250 ml @ 19.688 mls/ hr CONT PRN IV SEE I/O RECORD; Start 05/09/19 at 12:45; Status Cancel Dobutamine HCl/ Dextrose 250 ml @ 15.75 mls/ hr CONT PRN IV SEE I/O RECORD; Start 05/09/19 at 12:45; Stop 05/12/19 at 13:06; Status DC Insulin Human Lispro (HumaLOG) 0-7 UNITS TIDWMEALS SQ ; Start 05/09/19 at 17:00; Stop 05/09/19 at 19:36; Status DC Dextrose (Dextrose 50%-Water Syringe) 12.5 gm PRN Q15MIN PRN IV SEE COMMENTS; Start 05/09/19 at 15:30; Status UNV Sodium Chloride 1,000 ml @ 60 mls/hr [id number] IV Last administered on 05/10/19at 16:47; Start 05/09/19 at 15:30; Stop 05/12/19 at 10:57; Status DC Insulin Human Lispro (HumaLOG) 0-7 UNITS Q6HRS SQ Last administered on 05/13/19at 05:50; Start 05/10/19 at 00:00; Stop 05/13/19 at 08:27; Status DC Albuterol/ Ipratropium (Duoneb) 3 ml RTQID NEB Last administered on 05/18/19at 06:21; Start 05/10/19 at 08:00 Budesonide (Pulmicort) 0.5 mg RTBID NEB Last administered on 05/18/19at 06:21; Start 05/10/19 at 08:00 Heparin Sodium (Porcine) (Heparin Sodium) 5,000 unit BID SQ Last administered on 05/17/19at 20:45; Start 05/11/19 at 10:00 Phenol (Chloraseptic) 1 spray PRN Q2HR PRN PO SORE THROAT Last administered on 05/11/19at 13:12; Start 05/11/19 at 11:30 Multi-Ingredient Ointment (Analgesic [place]) 1 jazlyn PRN QID PRN TP MUSCLE PAIN; Start 05/11/19 at 11:30 Amino Acids/ Glycerin/ Electrolytes 1,000 ml @ 80 mls/hr [id number] IV Last administered on 05/15/19at 05:59; Start 05/11/19 at 12:00; Stop 05/15/19 at 21:59; Status DC Hydralazine HCl (Apresoline Inj) 10 mg PRN Q4HRS PRN IVP ELEVATED BP, SEE COMMENTS; Start 05/11/19 at 11:45 Pantoprazole Sodium (Protonix) 40 mg DAILYAC PO Last administered on 05/14/19at 06:04; Start 05/12/19 at 09:00; Stop 05/17/19 at 11:29; Status DC Carbidopa/Levodopa (Sinemet 25/100) 1 tab TID PO ; Start 05/12/19 at 14:00; Stop 05/12/19 at 13:40; Status DC Lisinopril (Prinivil) 10 mg DAILY PO Last administered on 05/14/19at 09:14; Start 05/13/19 at 09:00; Stop 05/16/19 at 10:07; Status DC Simvastatin (Zocor) 10 mg QHS PO Last administered on 05/14/19at 21:08; Start 05/12/19 at 21:00 Venlafaxine HCl (Effexor) 75 mg DAILY PO Last administered on 05/12/19at 13:34; Start 05/12/19 at 13:30; Stop 05/12/19 at 14:20; Status DC Primidone (Mysoline) 50 mg DAILY PO ; Start 05/12/19 at 13:45; Stop 05/12/19 at 14:27; Status DC Insulin Glargine (Lantus Syringe) 15 unit QHS SQ Last administered on 05/16/19at 22:25; Start 05/12/19 at 21:00; Stop 05/17/19 at 08:31; Status DC Venlafaxine HCl (Effexor Xr) 75 mg DAILY PO Last administered on 05/14/19at 09:13; Start 05/13/19 at 09:00 Lactobacillus Rhamnosus (Culturelle) 1 cap BID PO Last administered on 05/14/19at 21:08; Start 05/12/19 at 21:00 Primidone (Mysoline) 25 mg BID PO Last administered on 05/14/19at 21:08; Start 05/12/19 at 14:30 Gabapentin (Neurontin) 300 mg PRN QHS PRN PO NEUROPATHIC PAIN Last administered on 05/12/19at 20:53; Start 05/12/19 at 17:45 Acetaminophen (Tylenol) 500 mg PRN Q6HRS PRN PO MILD PAIN / TEMP; Start 05/13 at 08:30 Tramadol HCl (Ultram) 50 mg PRN Q6HRS PRN PO PAIN MOD TO SEV Last administered on 05/14/19at 04:27; Start 05/13/19 at 08:30 Clonidine HCl (Catapres) 0.1 mg PRN Q1HR PRN PO HYPERTENSION; Start 05/13/19 at 08:30 Ondansetron HCl (Zofran) 4 mg PRN Q6HRS PRN IVP NAUSEA/VOMITING; Start 05/13/19 at 08:30; Status UNV Venlafaxine HCl (Effexor Xr) 37.5 mg BID PO ; Start 05/13/19 at 09:00; Stop 05/13/19 at 08:33; Status DC Iohexol (Omnipaque 240 Mg/ml) 30 ml 1X ONCE PO Last administered on 05/14/19at 08:45; Start 05/14/19 at 08:45; Stop 05/14/19 at 08:48; Status DC Iohexol (Omnipaque 300 Mg/ml) 60 ml 1X ONCE IV Last administered on 05/14/19at 08:45; Start 05/14/19 at 08:45; Stop 05/14/19 at 08:48; Status DC Info (CONTRAST GIVEN -- Rx MONITORING) 1 each PRN DAILY PRN MC SEE COMMENTS; Start 05/14/19 at 09:00; Stop 05/16/19 at 08:59; Status DC Daptomycin 570 mg/ Sodium Chloride 50 ml @ 100 mls/hr Q24H IV Last administered on 05/17/19at 13:03; Start 05/14/19 at 11:30 Micafungin Sodium 100 mg/Dextrose 100 ml @ 100 mls/hr Q24H IV Last administered on 05/17/19at 11:02; Start 05/14/19 at 11:00 Cefepime HCl (Maxipime) 2 gm Q8HRS IVP Last administered on 05/18/19at 06:25; Start 05/14/19 at 12:00; Stop 05/18/19 at 08:18; Status DC Metronidazole 100 ml @ 100 mls/hr Q8HRS IV Last administered on 05/18/19at 06:28; Start 05/14/19 at 14:00; Stop 05/18/19 at 08:18; Status DC Lidocaine HCl (Buffered Lidocaine 1%) 3 ml STK-MED ONCE .ROUTE ; Start 05/14/19 at 12:43; Stop 05/14/19 at 12:44; Status DC Lidocaine HCl (Buffered Lidocaine 1%) 3 ml 1X ONCE IJ Last administered on 05/14/19at 13:14; Start 05/14/19 at 13:00; Stop 05/14/19 at 13:02; Status DC Info (Tpn Per Pharmacy) 1 each PRN DAILY PRN MC SEE COMMENTS Last administered on 05/17/19at 12:19; Start 05/14/19 at 16:00 Sodium Chloride 90 meq/Potassium Chloride 50 meq/ Potassium Phosphate 13.6 mmol/Magnesium Sulfate 10 meq/ Calcium Gluconate 10 meq/ Multivitamins 10 ml/Chromium/ Copper/Manganese/ Seleni/Zn 1 ml/ Total Parenteral Nutrition/Amino Acids/Dextrose/ Fat Emulsion Intravenous 1,512 ml @ 63 mls/hr TPN CONT IV Last administered on 05/15/19at 21:58; Start 05/15/19 at 22:00; Stop 05/16/19 at 21:59; Status DC Lidocaine HCl (Buffered Lidocaine 1%) 3 ml STK-MED ONCE .ROUTE ; Start 05/15/19 at 13:19; Stop 05/15/19 at 13:19; Status DC Midazolam HCl (Versed) 2 mg STK-MED ONCE .ROUTE ; Start 05/15/19 at 13:47; Stop 05/15/19 at 13:47; Status DC Fentanyl Citrate (Fentanyl 2ml Vial) 100 mcg STK-MED ONCE .ROUTE ; Start 05/15/19 at 13:47; Stop 05/15/19 at 13:47; Status DC Flumazenil (Romazicon) 0.5 mg STK-MED ONCE IV ; Start 05/15/19 at 13:47; Stop 05/15/19 at 13:47; Status DC Naloxone HCl (Narcan) 0.4 mg STK-MED ONCE .ROUTE ; Start 05/15/19 at 13:47; Stop 05/15/19 at 13:47; Status DC Lidocaine HCl (Buffered Lidocaine 1%) 4 ml 1X ONCE IJ Last administered on 05/15/19at 14:30; Start 05/15/19 at 14:30; Stop 05/15/19 at 14:38; Status DC Midazolam HCl (Versed) 1 mg 1X ONCE IV Last administered on 05/15/19at 14:30; Start 05/15/19 at 14:30; Stop 05/15/19 at 14:38; Status DC Fentanyl Citrate (Fentanyl 2ml Vial) 50 mcg 1X ONCE IV Last administered on at 14:30; Start 05/15/19 at 14:30; Stop 05/15/19 at 14:38; Status DC Insulin Human Lispro (HumaLOG) 0-9 UNITS TIDWMEALS SQ ; Start 05/16/19 at 17:00; Stop 05/16/19 at 13:29; Status DC Dextrose (Dextrose 50%-Water Syringe) 12.5 gm PRN Q15MIN PRN IV SEE COMMENTS; Start 05/16/19 at 13:15 Insulin Human Regular (HumuLIN R VIAL) 8 unit 1X ONCE IV Last administered on 05/16/19at 13:36; Start 05/16/19 at 13:15; Stop 05/16/19 at 13:22; Status DC Insulin Human Lispro (HumaLOG) 0-9 UNITS Q6HRS SQ Last administered on 05/18/19at 06:27; Start 05/16/19 at 18:00 Sodium Chloride 90 meq/Potassium Chloride 50 meq/ Potassium Phosphate 13.6 mmol/Magnesium Sulfate 10 meq/ Calcium Gluconate 10 meq/ Multivitamins 10 ml/Chromium/ Copper/Manganese/ Seleni/Zn 1 ml/ Total Parenteral Nutrition/Amino Acids/Dextrose/ Fat Emulsion Intravenous 1,512 ml @ 63 mls/hr TPN CONT IV Last administered on 05/16/19at 21:56; Start 05/16/19 at 22:00; Stop 05/17/19 at 21:59; Status DC Sodium Chloride 1,000 ml @ 75 mls/hr [id number] IV Last administered on 05/18/19at 06:37; Start 05/16/19 at 14:45 Insulin Glargine (Lantus Syringe) 22 unit QHS SQ Last administered on 05/17/19at 20:46; Start 05/17/19 at 08:30; Stop 05/18/19 at 07:49; Status DC Labetalol HCl (Normodyne Iv Push) 10 mg PRN Q2HR PRN IVP HYPERTENSION; Start 05/17/19 at 08:30 Insulin Glargine (Lantus Syringe) 10 unit 1X STAT SQ Last administered on 05/17/19at 09:13; Start 05/17/19 at 08:30; Stop 05/17/19 at 08:33; Status DC Pantoprazole Sodium (PROTONIX VIAL for IV PUSH) 40 mg DAILYAC IVP Last administered on 05/18/19at 06:37; Start 05/17/19 at 13:00 Sodium Chloride 60 meq/Potassium Chloride 30 meq/ Potassium Phosphate 13.6 mmol/Magnesium Sulfate 10 meq/ Calcium Gluconate 10 meq/ Multivitamins 10 ml/Chromium/ Copper/Manganese/ Seleni/Zn 1 ml/ Total Parenteral Nutrition/Amino Acids/Dextrose/ Fat Emulsion Intravenous 1,512 ml @ 63 mls/hr TPN CONT IV Last administered on 05/17/19at 23:13; Start 05/17/19 at 22:00; Stop 05/18/19 at 21:59 Haloperidol Lactate (Haldol Inj) 2 mg 1X ONCE IM ; Start 05/17/19 at 22:30; Stop 05/17/19 at 22:31; Status Cancel Haloperidol Lactate (Haldol Inj) 2 mg 1X ONCE IVP Last administered on 05/17/19at 23:01; Start 05/17/19 at 22:45; Stop 05/17/19 at 22:46; Status DC Lorazepam (Ativan Inj) 1 mg PRN Q6HRS PRN IVP ANXIETY / AGITATION Last administered on 05/18/19at 01:32; Start 05/18/19 at 01:30; Stop 05/18/19 at 07:48; Status DC Haloperidol Lactate (Haldol Inj) 5 mg 1X ONCE IVP Last administered on 05/18/19at 04:41; Start 05/18/19 at 04:30; Stop 05/18/19 at 04:31; Status DC Lorazepam (Ativan Inj) 1 mg 1X ONCE IVP Last administered on 05/18/19at 05:02; Start 05/18/19 at 04:30; Stop 05/18/19 at 04:31; Status DC Lorazepam (Ativan Inj) 2 mg PRN Q4HRS PRN IVP ANXIETY / AGITATION Last administered on 05/18/19at 08:02; Start 05/18/19 at 07:45 Insulin Glargine (Lantus Syringe) 35 unit QHS SQ ; Start 05/18/19 at 21:00 Insulin Glargine (Lantus Syringe) 10 unit ONCE STAT SQ ; Start 05/18/19 at 07:47; Stop 05/18/19 at 07:51; Status DC Haloperidol Lactate (Haldol Inj) 5 mg PRN Q6HRS PRN IVP AGITATION; Start 05/18/19 at 08:00 Meropenem 500 mg/ Sodium Chloride 50 ml @ 100 mls/hr Q6HRS IV ; Start 05/18/19 at 09:00 Active Scripts Active Reported Venlafaxine Hcl Er (Venlafaxine Hcl) 75 Mg Cap.er.24h 75 Mg PO DAILY Simvastatin 10 Mg Tablet 10 Mg PO DAILY Metformin Hcl 1,000 Mg Tablet 1,000 Mg PO BIDWMEALS Meloxicam 15 Mg Tablet Unknown Dose PO DAILY Lisinopril 10 Mg Tablet Unknown Dose PO DAILY Humalog (Insulin Lispro) 100 Unit/1 Ml Cartridge 100 Unit SQ Sinemet 25-100 Mg Tablet (Carbidopa/Levodopa) 1 Each Tablet 1 Tab PO TID Vitals/I & O Vital Sign - Last 24 Hours 05/17/19 05/17/19 05/17/19 05/17/19 11:00 11:13 15:00 15:11 Temp 97.8 99.0 97.8 99.0 Pulse 92 93 Resp 16 16 B/P (MAP) 138/70 (92) 148/77 (100) Pulse Ox 92 95 O2 Delivery Room Air Room Air Room Air Room Air 05/17/19 05/17/19 05/17/19 05/17/19 18:12 19:00 20:15 23:00 Temp 97.6 97.9 97.6 97.9 Pulse 92 89 Resp 20 18 B/P (MAP) 159/49 (85) 142/62 (88) Pulse Ox 95 92 93 O2 Delivery Room Air Room Air Room Air Room Air 05/18/19 05/18/19 05/18/19 03:00 06:21 07:30 Temp 97.9 100.0 97.9 100.0 Pulse 94 116 Resp 18 22 B/P (MAP) 123/59 (80) 147/54 (85) Pulse Ox 98 95 94 O2 Delivery Room Air Nasal Cannula Nasal Cannula O2 Flow Rate 2.0 2.0 Intake and Output 05/17/19 05/17/19 05/18/19 15:00 23:00 07:00 Intake Total 1400 ml Output Total 1200 ml 1670 ml 635 ml Balance -1200 ml -1670 ml 765 ml HARITHA LARA MD May 18, 2019 09:54
[2019-05-18] MEDS: BACITRACIN TOPICAL OINT PACKET. TP SCH (10:13)
[2019-05-18] MEDS: HYDROmorphone 2 MG/ML VIAL IV PRN ×4 (10:14→23:05)
--- NOTE | 2019-05-18 10:48 | PDOC ---
PULMONARY PROGRESS NOTES Subjective patient is agitated and not alert . Vitals Vital Signs Date Time Temp Pulse Resp B/P (MAP) Pulse Ox O2 Delivery O2 Flow Rate FiO2 05/18/19 10:14 94 Room Air 2.0 05/18/19 07:30 100.0 116 22 147/54 (85) 100.0 Comments No ROS obtainable General: Confused HEENT: Other (nc at perrl nose throat clear neck no lad no thyromegaly) Lungs: Clear, Other (deminished bs) Cardiovascular: S1, S2 Abdomen: Soft, Non-tender, Other (no mass) Extremities: No Edema Skin: Warm Labs Laboratory Tests Test 05/16/19 12:27 05/16/19 18:06 05/16/19 22:22 05/17/19 00:06 Glucose (Fingerstick) 320 mg/dL (70-99) 288 mg/dL (70-99) 297 mg/dL (70-99) 340 mg/dL (70-99) Test 05/17/19 05:56 05/17/19 06:15 05/17/19 12:53 05/17/19 18:15 Glucose (Fingerstick) 310 mg/dL (70-99) 330 mg/dL (70-99) 305 mg/dL (70-99) Sodium Level 142 mmol/L (136-145) Potassium Level 4.4 mmol/L (3.5-5.1) Chloride Level 112 mmol/L (98-107) Carbon Dioxide Level 21 mmol/L (21-32) Anion Gap 9 (6-14) Blood Urea Nitrogen 48 mg/dL (8-26) Creatinine 1.6 mg/dL (0.7-1.3) Estimated GFR (Cockcroft-Gault) 42.6 Glucose Level 344 mg/dL (70-99) Calcium Level 8.7 mg/dL (8.5-10.1) Phosphorus Level 3.1 mg/dL (2.6-4.7) Magnesium Level 2.1 mg/dL (1.8-2.4) Test 05/17/19 20:39 05/18/19 00:05 05/18/19 05:40 Glucose (Fingerstick) 284 mg/dL (70-99) 304 mg/dL (70-99) White Blood Count 14.5 x10^3/uL (4.0-11.0) Red Blood Count 2.68 x10^6/uL (4.30-5.70) Hemoglobin 8.2 g/dL (13.0-17.5) Hematocrit 25.7 % (39.0-53.0) Mean Corpuscular Volume 96 fL (79-100) Mean Corpuscular Hemoglobin 31 pg (25-35) Mean Corpuscular Hemoglobin Concent 32 g/dL (31-37) Red Cell Distribution Width 14.9 % (11.5-14.5) Platelet Count 387 x10^3/uL (140-400) Neutrophils (%) (Auto) 84 % (31-73) Lymphocytes (%) (Auto) 7 % (24-48) Monocytes (%) (Auto) 8 % (0-9) Eosinophils (%) (Auto) 1 % (0-3) Basophils (%) (Auto) 1 % (0-3) Neutrophils # (Auto) 12.1 x10^3/uL (1.8-7.7) Lymphocytes # (Auto) 1.1 x10^3/uL (1.0-4.8) Monocytes # (Auto) 1.1 x10^3/uL (0.0-1.1) Eosinophils # (Auto) 0.1 x10^3/uL (0.0-0.7) Basophils # (Auto) 0.1 x10^3/uL (0.0-0.2) Sodium Level 148 mmol/L (136-145) Potassium Level 4.9 mmol/L (3.5-5.1) Chloride Level 116 mmol/L (98-107) Carbon Dioxide Level 20 mmol/L (21-32) Anion Gap 12 (6-14) Blood Urea Nitrogen 36 mg/dL (8-26) Creatinine 1.6 mg/dL (0.7-1.3) Estimated GFR (Cockcroft-Gault) 42.6 Glucose Level 259 mg/dL (70-99) Calcium Level 8.8 mg/dL (8.5-10.1) Phosphorus Level 2.8 mg/dL (2.6-4.7) Magnesium Level 1.9 mg/dL (1.8-2.4) Laboratory Tests Test 05/17/19 12:53 05/17/19 18:15 05/17/19 20:39 05/18/19 00:05 Glucose (Fingerstick) 330 mg/dL (70-99) 305 mg/dL (70-99) 284 mg/dL (70-99) 304 mg/dL (70-99) Test 05/18/19 05:40 White Blood Count 14.5 x10^3/uL (4.0-11.0) Red Blood Count 2.68 x10^6/uL (4.30-5.70) Hemoglobin 8.2 g/dL (13.0-17.5) Hematocrit 25.7 % (39.0-53.0) Mean Corpuscular Volume 96 fL (79-100) Mean Corpuscular Hemoglobin 31 pg (25-35) Mean Corpuscular Hemoglobin Concent 32 g/dL (31-37) Red Cell Distribution Width 14.9 % (11.5-14.5) Platelet Count 387 x10^3/uL (140-400) Neutrophils (%) (Auto) 84 % (31-73) Lymphocytes (%) (Auto) 7 % (24-48) Monocytes (%) (Auto) 8 % (0-9) Eosinophils (%) (Auto) 1 % (0-3) Basophils (%) (Auto) 1 % (0-3) Neutrophils # (Auto) 12.1 x10^3/uL (1.8-7.7) Lymphocytes # (Auto) 1.1 x10^3/uL (1.0-4.8) Monocytes # (Auto) 1.1 x10^3/uL (0.0-1.1) Eosinophils # (Auto) 0.1 x10^3/uL (0.0-0.7) Basophils # (Auto) 0.1 x10^3/uL (0.0-0.2) Sodium Level 148 mmol/L (136-145) Potassium Level 4.9 mmol/L (3.5-5.1) Chloride Level 116 mmol/L (98-107) Carbon Dioxide Level 20 mmol/L (21-32) Anion Gap 12 (6-14) Blood Urea Nitrogen 36 mg/dL (8-26) Creatinine 1.6 mg/dL (0.7-1.3) Estimated GFR (Cockcroft-Gault) 42.6 Glucose Level 259 mg/dL (70-99) Calcium Level 8.8 mg/dL (8.5-10.1) Phosphorus Level 2.8 mg/dL (2.6-4.7) Magnesium Level 1.9 mg/dL (1.8-2.4) Medications Active Scripts Medications Dose Route/Sig Max Daily Dose Days Date Category Venlafaxine Hcl 75 Mg Tablet Unknown Dose PO DAILY 02/18/19 Reported Simvastatin 10 Mg Tablet 10 Mg PO DAILY 02/18/19 Reported Metformin Hcl 1,000 Mg Tablet 1,000 Mg PO BIDWMEALS 02/18/19 Reported Meloxicam 15 Mg Tablet Unknown Dose PO DAILY 02/18/19 Reported Lisinopril 10 Mg Tablet Unknown Dose PO DAILY 02/18/19 Reported Humalog (Insulin Lispro) 100 Unit/1 Ml Cartridge 100 Unit SQ 02/18/19 Reported Sinemet 25-100 Mg Tablet (Carbidopa/Levodopa) 1 Each Tablet 1 Tab PO TID 02/18/19 Reported Comments I reviewed CXR taken this morning. Radiologist's interpretation not yet available. No new infiltrates. CXR is actually better compared to film of a few days ago. Impression . IMPRESSION: 1. status post repair of a perforated duodenal ulcer. 2. Status post laparoscopy with open laparotomy for closure of a duodenal ulcer with Dawood patch. 05/08 3. Acute exacerbation of chronic obstructive pulmonary disease, resolving. 4. Tobacco dependence. 5. Hypertension. 6. Recent right shoulder repair. 7. Hypotension. 8. Fever. 9. Possible sepsis present upon admission. 10. CT-guided abdominal drain placement as described. 05/15 11. confusion and agitation of uncertain cause. With good oxygenation, cxr and clear lung exam I do not think this is pulmonary in origin. Primary service is evaluating and managing further. Plan . PULMONARY HYGIENE Nebulized bronchodilators AGREE WITH CURRENT RX D/C SMOKING CONTINUE SUPPORT HEATHER PALOMARES MD May 18, 2019 10:48
--- NOTE | 2019-05-18 11:15 | RAD ---
AP chest x-ray HISTORY: Pneumonia. COMPARISON: Chest x-ray May 09, 2019. FINDINGS: Recent right shoulder arthroplasty with skin jared still present. Nasogastric tube tip left upper quadrant abdomen. Left PICC line tip atrial caval junction. Heart size stable. No pneumothorax, pulmonary opacities or pleural effusions. IMPRESSION: No acute process. Lines and tubes as described above. AP abdomen x-ray HISTORY: Bowel perforation. FINDINGS: There is a right abdominal pigtail drainage catheter. There is mild volume of gas in the stomach and large and small bowel is also mild volume of stool within the right-sided colon. No dilated bowel loops. Right renal 6 mm calculus. Lumbar arthrosis and disc disease changes. Nasogastric tube tip left upper quadrant region of the upper stomach. Left flank outside the [id number]. IMPRESSION: Gas within the large and small bowel. No evidence of bowel obstruction. Mild volume of stool within the right-sided colon. Pigtail drainage catheter is noted. Right renal calculus again noted. Electronically signed by: Mansoor Parson MD (05/18/2019 11:12 AM) [facility]
--- NOTE | 2019-05-18 11:15 | RAD ---
AP chest x-ray HISTORY: Pneumonia. COMPARISON: Chest x-ray May 09, 2019. FINDINGS: Recent right shoulder arthroplasty with skin jared still present. Nasogastric tube tip left upper quadrant abdomen. Left PICC line tip atrial caval junction. Heart size stable. No pneumothorax, pulmonary opacities or pleural effusions. IMPRESSION: No acute process. Lines and tubes as described above. AP abdomen x-ray HISTORY: Bowel perforation. FINDINGS: There is a right abdominal pigtail drainage catheter. There is mild volume of gas in the stomach and large and small bowel is also mild volume of stool within the right-sided colon. No dilated bowel loops. Right renal 6 mm calculus. Lumbar arthrosis and disc disease changes. Nasogastric tube tip left upper quadrant region of the upper stomach. Left flank outside the [id number]. IMPRESSION: Gas within the large and small bowel. No evidence of bowel obstruction. Mild volume of stool within the right-sided colon. Pigtail drainage catheter is noted. Right renal calculus again noted. Electronically signed by: Mansoor Parson MD (05/18/2019 11:12 AM) [facility]
[2019-05-18] MEDS: TPN PER PHARMACY MC PRN (11:41)
[2019-05-18 11:42] VITALS: BP 140/80
--- NOTE | 2019-05-18 11:42 | NUR ---
Pharmacy TPN Dosing Note S: MORIAH BARRAGAN is a 73 year old M Currently receiving Central Continuous TPN started 05/15/19 B:Pertinent PMH: Perforated duodenal ulcer Height: 5 feet, 10 inches Weight: [id number] kg Current diet: NPO LABS: Sodium: 148 Potassium: 4.9 Chloride: 116 Calcium: 8.8 Corrected Calcium: 10.48 Magnesium: 1.9 CO2: 20 SCr: 1.6 Glucose: 259 Albumin: 1.9 AST: 31 ALT: 39 TPN FORMULA: TPN TYPE: Central Continuous AMINO ACIDS: 60 gm DEXTROSE: 195 gm LIPIDS: 20 gm SODIUM CHLORIDE: 600 mEq SODIUM ACETATE: mEq SODIUM PHOSPHATE: mmol POTASSIUM CHLORIDE: 0 mEq POTASSIUM ACETATE: mEq POTASSIUM PHOSPHATE: 13.6 mmol MAGNESIUM: 10 mEq CALCIUM: 10 mEq INSULIN: units MULTIPLE VITAMIN: 10 ml TRACE ELEMENTS: 1 ml(s) TPN PLAN: -Glucose elevated, insulins being adjusted by primary outside of TPN -Sodium and potassium continue creeping up, will remove remaining NaCl and KCl from tpn today -labs in the am R: Continue TPN as written above. Will monitor electrolytes, glucose, and tolerance to TPN. DEBBY ALLEN [facility], 05/18/19 [id number]
--- NOTE | 2019-05-18 11:43 | PDOC ---
Renal-Progress Notes Subjective Notes Notes CONFUSED AND NO NEW COMPLAINTS History of Present Illness Hx of present illness STABLE Vitals Vitals Vital Signs Date Time Temp Pulse Resp B/P (MAP) Pulse Ox O2 Delivery O2 Flow Rate FiO2 05/18/19 11:34 Nasal Cannula 2.0 05/18/19 10:14 94 05/18/19 07:30 100.0 116 22 147/54 (85) 100.0 Weight Weight [ ] I.O. Intake and Output Intake and Output 05/18/19 07:00 Intake Total 1400 ml Output Total 3505 ml Balance -2105 ml Intake Oral 50 ml IV Total 1350 ml Output Urine Total 1600 ml Gastric Drainage Total 1825 ml Drainage Total 80 ml # Voids 2 Labs Labs Laboratory Tests Test 05/17/19 12:53 05/17/19 18:15 05/17/19 20:39 05/18/19 00:05 Glucose (Fingerstick) 330 mg/dL (70-99) 305 mg/dL (70-99) 284 mg/dL (70-99) 304 mg/dL (70-99) Test 05/18/19 05:40 White Blood Count 14.5 x10^3/uL (4.0-11.0) Red Blood Count 2.68 x10^6/uL (4.30-5.70) Hemoglobin 8.2 g/dL (13.0-17.5) Hematocrit 25.7 % (39.0-53.0) Mean Corpuscular Volume 96 fL (79-100) Mean Corpuscular Hemoglobin 31 pg (25-35) Mean Corpuscular Hemoglobin Concent 32 g/dL (31-37) Red Cell Distribution Width 14.9 % (11.5-14.5) Platelet Count 387 x10^3/uL (140-400) Neutrophils (%) (Auto) 84 % (31-73) Lymphocytes (%) (Auto) 7 % (24-48) Monocytes (%) (Auto) 8 % (0-9) Eosinophils (%) (Auto) 1 % (0-3) Basophils (%) (Auto) 1 % (0-3) Neutrophils # (Auto) 12.1 x10^3/uL (1.8-7.7) Lymphocytes # (Auto) 1.1 x10^3/uL (1.0-4.8) Monocytes # (Auto) 1.1 x10^3/uL (0.0-1.1) Eosinophils # (Auto) 0.1 x10^3/uL (0.0-0.7) Basophils # (Auto) 0.1 x10^3/uL (0.0-0.2) Sodium Level 148 mmol/L (136-145) Potassium Level 4.9 mmol/L (3.5-5.1) Chloride Level 116 mmol/L (98-107) Carbon Dioxide Level 20 mmol/L (21-32) Anion Gap 12 (6-14) Blood Urea Nitrogen 36 mg/dL (8-26) Creatinine 1.6 mg/dL (0.7-1.3) Estimated GFR (Cockcroft-Gault) 42.6 Glucose Level 259 mg/dL (70-99) Calcium Level 8.8 mg/dL (8.5-10.1) Phosphorus Level 2.8 mg/dL (2.6-4.7) Magnesium Level 1.9 mg/dL (1.8-2.4) Micro Micro Microbiology 05/15/19 AFB Specimen Processing Tissue - Final, Resulted 05/15/19 Acid Fast Bacilli Culture, Resulted Pending 05/15/19 Gram Stain - Final, Resulted 05/15/19 Fungal Culture, Resulted Pending 05/15/19 Fungal Culture Result 1, Resulted Pending Review of Systems Constitutional: yes: alert, oriented Ears/Nose/Throat: Yes: no symptom reported Eyes: Yes: no symptom reported Gastrointestional: Yes: abdominal pain Genitourinary: Yes: no symptom reported Musculoskeletal: Yes: no symptom reported Skin: Yes no symptom reported Psychiatric/Neurological: Yes: no symptom reported Endocrine: Yes: no symptom reported Physical Exam General Appearance: no apparent distress Skin: warm Respiratory: decreased breath sounds Abdomen: soft, tenderness Genitourinary: bladder flat Neurology: alert, oriented, follow commands Musculoskeletal: Osteoarthritis Assessment Assessment IMP GREGG-IMPROVED AND STABLE WITH CR OF 1.6 S/P REPAIR OF PERFORATED ULCER NON OBSTRUCTING RIGHT RENAL CALCULUS ENCEPHALOPATHY AECOPD PLAN CONT TPN-CHANGES MADE LABS IN AM WILL FOLLOW NAYI BOOTH MD May 18, 2019 11:43
[2019-05-18] MEDS: MICAFUNGIN 100 MG in IV DEXTROSE 5% 100ML 100 ML IV SCH (11:45)
[2019-05-18] MEDS: DAPTOmycin (GENERIC) IVPB 570 MG in IV NORMAL SALINE 50ML 50 ML IV SCH (12:48)
--- NOTE | 2019-05-18 13:55 | PDOC ---
SURGICAL PROGRESS NOTE Subjective less responsive one on one nursing Vital Signs Vital Signs Date Time Temp Pulse Resp B/P (MAP) Pulse Ox O2 Delivery O2 Flow Rate FiO2 05/18/19 13:27 96 Nasal Cannula 2.0 05/18/19 11:42 100.2 108 22 140/80 (100) 100.2 I&O Intake and Output 05/18/19 07:00 Intake Total 1400 ml Output Total 3505 ml Balance -2105 ml Intake Oral 50 ml IV Total 1350 ml Output Urine Total 1600 ml Gastric Drainage Total 1825 ml Drainage Total 80 ml # Voids 2 PATIENT HAS A FENTON: Yes General: Other (sleeping) Labs Laboratory Tests Test 05/16/19 18:06 05/16/19 22:22 05/17/19 00:06 05/17/19 05:56 Glucose (Fingerstick) 288 mg/dL (70-99) 297 mg/dL (70-99) 340 mg/dL (70-99) 310 mg/dL (70-99) Test 05/17/19 06:15 05/17/19 12:53 05/17/19 18:15 05/17/19 20:39 Sodium Level 142 mmol/L (136-145) Potassium Level 4.4 mmol/L (3.5-5.1) Chloride Level 112 mmol/L (98-107) Carbon Dioxide Level 21 mmol/L (21-32) Anion Gap 9 (6-14) Blood Urea Nitrogen 48 mg/dL (8-26) Creatinine 1.6 mg/dL (0.7-1.3) Estimated GFR (Cockcroft-Gault) 42.6 Glucose Level 344 mg/dL (70-99) Calcium Level 8.7 mg/dL (8.5-10.1) Phosphorus Level 3.1 mg/dL (2.6-4.7) Magnesium Level 2.1 mg/dL (1.8-2.4) Glucose (Fingerstick) 330 mg/dL (70-99) 305 mg/dL (70-99) 284 mg/dL (70-99) Test 05/18/19 00:05 05/18/19 05:40 05/18/19 12:37 Glucose (Fingerstick) 304 mg/dL (70-99) 244 mg/dL (70-99) White Blood Count 14.5 x10^3/uL (4.0-11.0) Red Blood Count 2.68 x10^6/uL (4.30-5.70) Hemoglobin 8.2 g/dL (13.0-17.5) Hematocrit 25.7 % (39.0-53.0) Mean Corpuscular Volume 96 fL (79-100) Mean Corpuscular Hemoglobin 31 pg (25-35) Mean Corpuscular Hemoglobin Concent 32 g/dL (31-37) Red Cell Distribution Width 14.9 % (11.5-14.5) Platelet Count 387 x10^3/uL (140-400) Neutrophils (%) (Auto) 84 % (31-73) Lymphocytes (%) (Auto) 7 % (24-48) Monocytes (%) (Auto) 8 % (0-9) Eosinophils (%) (Auto) 1 % (0-3) Basophils (%) (Auto) 1 % (0-3) Neutrophils # (Auto) 12.1 x10^3/uL (1.8-7.7) Lymphocytes # (Auto) 1.1 x10^3/uL (1.0-4.8) Monocytes # (Auto) 1.1 x10^3/uL (0.0-1.1) Eosinophils # (Auto) 0.1 x10^3/uL (0.0-0.7) Basophils # (Auto) 0.1 x10^3/uL (0.0-0.2) Sodium Level 148 mmol/L (136-145) Potassium Level 4.9 mmol/L (3.5-5.1) Chloride Level 116 mmol/L (98-107) Carbon Dioxide Level 20 mmol/L (21-32) Anion Gap 12 (6-14) Blood Urea Nitrogen 36 mg/dL (8-26) Creatinine 1.6 mg/dL (0.7-1.3) Estimated GFR (Cockcroft-Gault) 42.6 Glucose Level 259 mg/dL (70-99) Calcium Level 8.8 mg/dL (8.5-10.1) Phosphorus Level 2.8 mg/dL (2.6-4.7) Magnesium Level 1.9 mg/dL (1.8-2.4) Laboratory Tests Test 05/17/19 18:15 05/17/19 20:39 05/18/19 00:05 05/18/19 05:40 Glucose (Fingerstick) 305 mg/dL (70-99) 284 mg/dL (70-99) 304 mg/dL (70-99) White Blood Count 14.5 x10^3/uL (4.0-11.0) Red Blood Count 2.68 x10^6/uL (4.30-5.70) Hemoglobin 8.2 g/dL (13.0-17.5) Hematocrit 25.7 % (39.0-53.0) Mean Corpuscular Volume 96 fL (79-100) Mean Corpuscular Hemoglobin 31 pg (25-35) Mean Corpuscular Hemoglobin Concent 32 g/dL (31-37) Red Cell Distribution Width 14.9 % (11.5-14.5) Platelet Count 387 x10^3/uL (140-400) Neutrophils (%) (Auto) 84 % (31-73) Lymphocytes (%) (Auto) 7 % (24-48) Monocytes (%) (Auto) 8 % (0-9) Eosinophils (%) (Auto) 1 % (0-3) Basophils (%) (Auto) 1 % (0-3) Neutrophils # (Auto) 12.1 x10^3/uL (1.8-7.7) Lymphocytes # (Auto) 1.1 x10^3/uL (1.0-4.8) Monocytes # (Auto) 1.1 x10^3/uL (0.0-1.1) Eosinophils # (Auto) 0.1 x10^3/uL (0.0-0.7) Basophils # (Auto) 0.1 x10^3/uL (0.0-0.2) Sodium Level 148 mmol/L (136-145) Potassium Level 4.9 mmol/L (3.5-5.1) Chloride Level 116 mmol/L (98-107) Carbon Dioxide Level 20 mmol/L (21-32) Anion Gap 12 (6-14) Blood Urea Nitrogen 36 mg/dL (8-26) Creatinine 1.6 mg/dL (0.7-1.3) Estimated GFR (Cockcroft-Gault) 42.6 Glucose Level 259 mg/dL (70-99) Calcium Level 8.8 mg/dL (8.5-10.1) Phosphorus Level 2.8 mg/dL (2.6-4.7) Magnesium Level 1.9 mg/dL (1.8-2.4) Test 05/18/19 12:37 Glucose (Fingerstick) 244 mg/dL (70-99) Problem List Problems Medical Problems: (1) Perforated intestine, nontraumatic Status: Acute Assessment/Plan post op closure perforated viscous continue supportive care CLIFFORD WONG MD May 18, 2019 13:55
--- NOTE | 2019-05-18 14:51 | PDOC2 ---
NEUROLOGY CONSULT Date of Admission Date of Admission DATE: 05/18/19 TIME: 14:31 Reason for Consult Reason for Consult: IMPRESSION: Abnormal jerking like movements. Metabolic encephalopathy. ET. Bowel perforation s/p surgery. Fever. Hyperglycemia. DM. Renal failre. Anemia. HTN. HLD. COPD. Obesity. RECOMMENDATIONS/PLAN: HCT. EEG. Lab: see orders. Vimpat 100 mg q12h. Treat medical and surgical diseases. Discussed with his at bedside. History of Present Illness This is a 73-year-old white male patient was came to the ER of [facility] on 05/08/19 with complaints of severe abdominal pain, nausea, vomiting. He had a right shoulder surgery 2 days prior and has been on nonsteroidal anti-inflammatories for quite some time. Abdomen CT scan shows free air in the right upper quadrant with some perihepatic ascites. Neurology was request for a consultation on 05/18/19 due to abnormal movements, mental status changes, and confusion. Past Medical History Cardiovascular: HTN Pulmonary: No pertinent hx GI: Gastritis, Peptic Ulcer disease Heme/Onc: No pertinent hx Hepatobiliary: No pertinent hx Psych: No pertinent hx Musculoskeletal: Other (shoulder pain) Rheumatologic: No pertinent hx Infectious disease: No pertinent hx ENT: No pertinent hx Renal/: Chronic renal insuff Endocrine: Diabetes Dermatology: No pertinent hx Past Surgical History Right shoulder surgery postop 2 days to this admission. Family History No Significant Social History ALCOHOL: rare Drugs: None Lives: with Family Allergies Coded Allergies: sulfamethoxazole (Verified Allergy, Severe, Altered Mental Status , 05/08/19) trimethoprim (Verified Allergy, Severe, Altered Mental Status , 05/08/19) Sulfa (Sulfonamide Antibiotics) (Verified Allergy, Intermediate, 02/18/19) ciprofloxacin (Verified Allergy, Unknown, rash, 05/08/19) codeine (Verified Allergy, Unknown, Rash, 05/08/19) MEDICATIONS: Refer to [facility] REVIEW OF SYSTEMS: Constitutional: Obesity. Head: No traumatic brain or head injury. Skin: No edema, or rash. Ear: No infection. Eyes: No vision loss or color blindness. Nose: No bleeding or purulent discharges. Hearing: Hearing decrease. Neck: No injury. Cardiac: HTN, HLD. Pulmonary: COPD. GI: Abdomen pain. Urinary/genital: UTI. Endocrinologic: Diabetes Mellitus, obesity. Skeletomuscular: Tremors. Neurological: see HP. Psychiatric: Denies drug use/abuse. Otherwise, not [id number] review of systems. PHYSICAL EXAMINATION: General appearance is in subacute distress. HEENT: Normocephalic and nontraumatic. Eyes, nose, ears, and throat are unremarkable. Neck is supple. No lymphadenopathy. No crepitus. Cardiovascular: S1, S2. Pulmonary: decreased to auscultation bilaterally. Abdomen: Bowel sounds are positive? Extremities: No rash, lesions, or edema. No restriction of range of motion NEUROLOGICAL EXAMINATION: Lethargic. Not oriented to time, place and person. PERRL. EOMI. CN: no focal findings. Muscle tone: within normal. Muscle strength: Moves all extremities. DTR: 1+ Plantar reflex: Neutral response bilaterally Gait: not examined in bed. Sensory exam: Withdrew to stimuli.. Not able to access cerebellar signs. F-T-N test not performed due to not follow commands. Current Medications Current Medications Current Medications Fentanyl Citrate (Fentanyl 2ml Vial) 50 mcg PRN Q15MIN PRN IV PAIN GREATER THAN 3/10 Last administered on 05/08/19at 19:27; Start 05/08/19 at 16:30; Stop 05/08/19 at 21:00; Status DC Sodium Chloride 1,000 ml @ 250 mls/hr Q4H IV Last administered on 05/08/19 16:54; Start 05/08/19 at 16:19; Stop 05/08/19 at 20:18; Status DC Metoclopramide HCl (Reglan Vial) 10 mg 1X ONCE IVP Last administered on 05/08/19 16:51; Start 05/08/19 at 17:00; Stop 05/08/19 at 17:01; Status DC Diphenhydramine HCl (Benadryl) 25 mg 1X ONCE IVP Last administered on 05/08/19 16:51; Start 05/08/19 at 17:00; Stop 05/08/19 at 17:01; Status DC Iohexol (Omnipaque 350 Mg/ml) 90 ml 1X ONCE IV Last administered on 05/08/19 17:45; Start 05/08/19 at 17:30; Stop 05/08/19 at 17:31; Status DC Info (CONTRAST GIVEN -- Rx MONITORING) 1 each PRN DAILY PRN MC SEE COMMENTS; Start 05/08/19 at 17:30; Stop 05/10/19 at 17:29; Status DC Hydromorphone HCl (Dilaudid) 1 mg 1X ONCE IV Last administered on 05/08/19at 18:23; Start 05/08/19 at 18:30; Stop 05/08/19 at 18:31; Status DC Piperacillin Sod/ Tazobactam Sod 3.375 gm/Sodium Chloride 50 ml @ 100 mls/hr 1X ONCE IV Last administered on 05/08/19at 19:06; Start 05/08/19 at 19:00; Stop 05/08/19 at 19:29; Status DC Sodium Chloride 1,000 ml @ 1,000 mls/hr 1X ONCE IV Last administered on 05/08/19at 19:06; Start 05/08/19 at 19:00; Stop 05/08/19 at 19:59; Status DC Ondansetron HCl (Zofran) 4 mg STK-MED ONCE .ROUTE ; Start 05/08/19 at 19:34; Stop 05/08/19 at 19:34; Status DC Propofol 20 ml @ As Directed STK-MED ONCE IV ; Start 05/08/19 at 19:34; Stop 05/08/19 at 19:34; Status DC Lidocaine HCl (Lidocaine Pf 2% Vial) 5 ml STK-MED ONCE .ROUTE ; Start 05/08/19 at 19:34; Stop 05/08/19 at 19:34; Status DC Dexamethasone Sodium Phosphate (Decadron) 4 mg STK-MED ONCE .ROUTE ; Start 05/08/19 at 19:34; Stop 05/08/19 at 19:34; Status DC Fentanyl Citrate (Fentanyl 2ml Vial) 100 mcg STK-MED ONCE .ROUTE ; Start 05/08/19 at 19:34; Stop 05/08/19 at 19:34; Status DC Succinylcholine Chloride (Anectine) 200 mg STK-MED ONCE .ROUTE ; Start 05/08/19 at 19:34; Stop 05/08/19 at 19:34; Status DC Rocuronium Brandt (Zemuron) 50 mg STK-MED ONCE .ROUTE ; Start 05/08/19 at 19:34; Stop 05/08/19 at 19:34; Status DC Ondansetron HCl (Zofran) 4 mg PRN Q6HRS PRN IV NAUSEA/VOMITING; Start 05/08/19 at 19:45; Stop 05/08/19 at 23:59; Status DC Fentanyl Citrate (Fentanyl 2ml Vial) 25 mcg PRN Q5MIN PRN IV MILD PAIN 1-3; Start 05/08/19 at 19:45; Stop 05/08/19 at 23:59; Status DC Fentanyl Citrate (Fentanyl 2ml Vial) 50 mcg PRN Q5MIN PRN IV MODERATE TO SEVERE PAIN; Start 05/08/19 at 19:45; Stop 05/08/19 at 23:59; Status DC Ringer's Solution 1,000 ml @ 30 mls/hr Q24H IV Last administered on 05/08/19at 23:06; Start 05/08/19 at 20:00; Stop 05/09/19 at 01:00; Status DC Prochlorperazine Edisylate (Compazine) 5 mg PACU PRN PRN IV NAUSEA, MRX1; Start 05/08/19 at 19:45; Stop 05/08/19 at 23:59; Status DC Insulin Human Lispro (HumaLOG VIAL for OP,RR ONLY) 0-10 units PRN Q1HR PRN SQ PER PROTOCOL; Start 05/08/19 at 19:45; Stop 05/08/19 at 23:59; Status DC Bupivacaine HCl/ Epinephrine Bitart (Sensorcaine-Epi 0.25%-1:[id number] Mpf) 30 ml 1X ONCE INJ Last administered on 05/08/19at 20:32; Start 05/08/19 at 20:00; Stop 05/08/19 at 20:01; Status DC Ketamine HCl (Ketamine) 50 mg STK-MED ONCE .ROUTE ; Start 05/08/19 at 20:12; Stop 05/08/19 at 20:12; Status DC Phenylephrine HCl (PHENYLEPHRINE in 0.9% NACL PF) 1 mg STK-MED ONCE IV ; Start 05/08/19 at 20:33; Stop 05/08/19 at 20:33; Status DC Ephedrine Sulfate (ePHEDrine PF IN SALINE SYRINGE) 50 mg STK-MED ONCE IV ; Start 05/08/19 at 20:36; Stop 05/08/19 at 20:36; Status DC Albumin Human 500 ml @ As Directed STK-MED ONCE IV ; Start 05/08/19 at 20:55; Stop 05/08/19 at 20:55; Status DC Glycopyrrolate (Robinul) 1 mg STK-MED ONCE .ROUTE ; Start 05/08/19 at 21:27; Stop 05/08/19 at 21:27; Status DC Neostigmine Methylsulfate (Neostigmine Methylsulfate) 5 mg STK-MED ONCE .ROUTE ; Start 05/08/19 at 21:27; Stop 05/08/19 at 21:27; Status DC Bupivacaine HCl (Sensorcaine Mpf 0.5%) 30 ml STK-MED ONCE .ROUTE ; Start 05/08/19 at 21:39; Stop 05/08/19 at 21:39; Status DC Epinephrine HCl (Adrenalin) 1 mg STK-MED ONCE .ROUTE ; Start 05/08/19 at 21:39; Stop 05/08/19 at 21:39; Status DC Sevoflurane (Ultane) 60 ml STK-MED ONCE IH ; Start 05/08/19 at 21:44; Stop 05/08/19 at 21:44; Status DC Sodium Chloride 1,000 ml @ 125 mls/hr Q8H IV Last administered on 05/08/19at 23:45; Start 05/08/19 at 22:00; Stop 05/09/19 at 15:21; Status DC Ondansetron HCl (Zofran) 4 mg PRN Q6HRS PRN IVP NAUSEA/VOMITING 1ST CHOICE; Start 05/08/19 at 22:00 Fluconazole/ Sodium Chloride 100 ml @ 100 mls/hr Q24H IV Last administered on 05/13/19at 21:14; Start 05/08/19 at 22:00; Stop 05/14/19 at 10:28; Status DC Hydromorphone HCl (Dilaudid) 1 mg PRN Q4HRS PRN IV SEVERE PAIN 7-10 Last administered on 05/18/19at 10:14; Start 05/08/19 at 22:00; Stop 05/18/19 at 13:06; Status DC Piperacillin Sod/ Tazobactam Sod 3.375 gm/Sodium Chloride 50 ml @ 100 mls/hr Q6HRS IV Last administered on 05/14/19at 05:49; Start 05/09/19 at 00:00; Stop 05/14/19 at 10:28; Status DC Pantoprazole Sodium (PROTONIX VIAL for IV PUSH) 40 mg DAILY IVP Last administered on 05/11/19at 09:43; Start 05/09/19 at 09:00; Stop 05/12/19 at 08:30; Status DC Insulin Human Regular 150 unit/ Sodium Chloride 151.5 ml @ 0 mls/hr CONT PRN IV SEE I/O RECORD; Start 05/08/19 at 23:00; Status UNV Insulin Human Regular 150 unit/ Sodium Chloride 151.5 ml @ 0 mls/hr CONT PRN IV SEE I/O RECORD Last administered on 05/08/19at 23:03; Start 05/08/19 at 23:00; Stop 05/12/19 at 13:06; Status DC Dextrose (Dextrose 50%-Water Syringe) 12.5 gm PRN Q15MIN PRN IV LOW BLOOD SUGAR; Start 05/08/19 at 23:00; Stop 05/17/19 at 08:35; Status DC Dextrose 250 ml PRN Q15MIN PRN IV LOW BLOOD SUGAR; Start 05/08/19 at 23:00 Albumin Human 500 ml @ 250 mls/hr 1X ONCE IV Last administered on 05/09/19at 00:10; Start 05/09/19 at 00:30; Stop 05/09/19 at 02:29; Status DC Norepinephrine Bitartrate 250 ml @ 20.156 mls/ hr CONT PRN IV SEE I/O RECORD; Start 05/09/19 at 00:00; Stop 05/12/19 at 13:06; Status DC Dextrose/Sodium Chloride 1,000 ml @ 150 mls/hr Q6H40M IV Last administered on 05/09/19at 12:28; Start 05/09/19 at 08:45; Stop 05/09/19 at 18:30; Status DC Sodium Chloride 500 ml @ 500 mls/hr PRN Q2HR PRN IV SEE COMMENTS; Start 05/09/19 at 11:15 Sodium Chloride 1,000 ml @ 2,190 mls/hr Q28M IV ; Start 05/09/19 at 12:39; Stop 05/09/19 at 13:39; Status DC Sodium Chloride 500 ml @ 1,000 mls/hr PRN Q30MIN PRN IV SEE COMMENTS; Start 05/09/19 at 12:45; Stop 05/09/19 at 12:50; Status DC Norepinephrine Bitartrate 250 ml @ 19.688 mls/ hr CONT PRN IV SEE I/O RECORD; Start 05/09/19 at 12:45; Status Cancel Dobutamine HCl/ Dextrose 250 ml @ 15.75 mls/ hr CONT PRN IV SEE I/O RECORD; Start 05/09/19 at 12:45; Stop 05/12/19 at 13:06; Status DC Insulin Human Lispro (HumaLOG) 0-7 UNITS TIDWMEALS SQ ; Start 05/09/19 at 17:00; Stop 05/09/19 at 19:36; Status DC Dextrose (Dextrose 50%-Water Syringe) 12.5 gm PRN Q15MIN PRN IV SEE COMMENTS; Start 05/09/19 at 15:30; Status UNV Sodium Chloride 1,000 ml @ 60 mls/hr [id number] IV Last administered on 05/10/19at 16:47; Start 05/09/19 at 15:30; Stop 05/12/19 at 10:57; Status DC Insulin Human Lispro (HumaLOG) 0-7 UNITS Q6HRS SQ Last administered on 05/13/19at 05:50; Start 05/10/19 at 00:00; Stop 05/13/19 at 08:27; Status DC Albuterol/ Ipratropium (Duoneb) 3 ml RTQID NEB Last administered on 05/18/19at 11:33; Start 05/10/19 at 08:00 Budesonide (Pulmicort) 0.5 mg RTBID NEB Last administered on 05/18/19at 06:21; Start 05/10/19 at 08:00 Heparin Sodium (Porcine) (Heparin Sodium) 5,000 unit BID SQ Last administered on 05/18/19at 09:00; Start 05/11/19 at 10:00 Phenol (Chloraseptic) 1 spray PRN Q2HR PRN PO SORE THROAT Last administered on 05/11/19at 13:12; Start 05/11/19 at 11:30 Multi-Ingredient Ointment (Analgesic Ledbetter) 1 jazlyn PRN QID PRN TP MUSCLE PAIN; Start 05/11/19 at 11:30 Amino Acids/ Glycerin/ Electrolytes 1,000 ml @ 80 mls/hr [id number] IV Last administered on 05/15/19at 05:59; Start 05/11/19 at 12:00; Stop 05/15/19 at 21:59; Status DC Hydralazine HCl (Apresoline Inj) 10 mg PRN Q4HRS PRN IVP ELEVATED BP, SEE COMMENTS; Start 05/11/19 at 11:45 Pantoprazole Sodium (Protonix) 40 mg DAILYAC PO Last administered on 05/14/19at 06:04; Start 05/12/19 at 09:00; Stop 05/17/19 at 11:29; Status DC Carbidopa/Levodopa (Sinemet 25/100) 1 tab TID PO ; Start 05/12/19 at 14:00; Stop 05/12/19 at 13:40; Status DC Lisinopril (Prinivil) 10 mg DAILY PO Last administered on 05/14/19at 09:14; Start 05/13/19 at 09:00; Stop 05/16/19 at 10:07; Status DC Simvastatin (Zocor) 10 mg QHS PO Last administered on 05/14/19at 21:08; Start 05/12/19 at 21:00 Venlafaxine HCl (Effexor) 75 mg DAILY PO Last administered on 05/12/19at 13:34; Start 05/12/19 at 13:30; Stop 05/12/19 at 14:20; Status DC Primidone (Mysoline) 50 mg DAILY PO ; Start 05/12/19 at 13:45; Stop 05/12/19 at 14:27; Status DC Insulin Glargine (Lantus Syringe) 15 unit QHS SQ Last administered on 05/16/19at 22:25; Start 05/12/19 at 21:00; Stop 05/17/19 at 08:31; Status DC Venlafaxine HCl (Effexor Xr) 75 mg DAILY PO Last administered on 05/14/19at 09:13; Start 05/13/19 at 09:00 Lactobacillus Rhamnosus (Culturelle) 1 cap BID PO Last administered on 05/14/19at 21:08; Start 05/12/19 at 21:00 Primidone (Mysoline) 25 mg BID PO Last administered on 05/14/19at 21:08; Start 05/12/19 at 14:30 Gabapentin (Neurontin) 300 mg PRN QHS PRN PO NEUROPATHIC PAIN Last administered on 05/12/19at 20:53; Start 05/12/19 at 17:45 Acetaminophen (Tylenol) 500 mg PRN Q6HRS PRN PO MILD PAIN / TEMP; Start 05/13/19 at 08:30 Tramadol HCl (Ultram) 50 mg PRN Q6HRS PRN PO PAIN MOD TO SEV Last administered on 05/14/19at 04:27; Start 05/13/19 at 08:30 Clonidine HCl (Catapres) 0.1 mg PRN Q1HR PRN PO HYPERTENSION; Start 05/13/19 at 08:30 Ondansetron HCl (Zofran) 4 mg PRN Q6HRS PRN IVP NAUSEA/VOMITING; Start 05/13/19 at 08:30; Status UNV Venlafaxine HCl (Effexor Xr) 37.5 mg BID PO ; Start 05/13/19 at 09:00; Stop 05/13/19 at 08:33; Status DC Iohexol (Omnipaque 240 Mg/ml) 30 ml 1X ONCE PO Last administered on 05/14/19at 08:45; Start 05/14/19 at 08:45; Stop 05/14/19 at 08:48; Status DC Iohexol (Omnipaque 300 Mg/ml) 60 ml 1X ONCE IV Last administered on 05/14/19at 08:45; Start 05/14/19 at 08:45; Stop 05/14/19 at 08:48; Status DC Info (CONTRAST GIVEN -- Rx MONITORING) 1 each PRN DAILY PRN MC SEE COMMENTS; Start 05/14/19 at 09:00; Stop 05/16/19 at 08:59; Status DC Daptomycin 570 mg/ Sodium Chloride 50 ml @ 100 mls/hr Q24H IV Last administered on 05/18/19at 12:48; Start 05/14/19 at 11:30 Micafungin Sodium 100 mg/Dextrose 100 ml @ 100 mls/hr Q24H IV Last administered on 05/18/19at 11:45; Start 05/14/19 at 11:00 Cefepime HCl (Maxipime) 2 gm Q8HRS IVP Last administered on 05/18/19at 06:25; Start 05/14/19 at 12:00; Stop 05/18/19 at 08:18; Status DC Metronidazole 100 ml @ 100 mls/hr Q8HRS IV Last administered on 05/18/19at 06:28; Start 05/14/19 at 14:00; Stop 05/18/19 at 08:18; Status DC Lidocaine HCl (Buffered Lidocaine 1%) 3 ml STK-MED ONCE .ROUTE ; Start 05/14/19 at 12:43; Stop 05/14/19 at 12:44; Status DC Lidocaine HCl (Buffered Lidocaine 1%) 3 ml 1X ONCE IJ Last administered on 05/14/19at 13:14; Start 05/14/19 at 13:00; Stop 05/14/19 at 13:02; Status DC Info (Tpn Per Pharmacy) 1 each PRN DAILY PRN MC SEE COMMENTS Last administered on 05/18/19at 11:41; Start 05/14/19 at 16:00 Sodium Chloride 90 meq/Potassium Chloride 50 meq/ Potassium Phosphate 13.6 mmol/Magnesium Sulfate 10 meq/ Calcium Gluconate 10 meq/ Multivitamins 10 ml/Chromium/ Copper/Manganese/ Seleni/Zn 1 ml/ Total Parenteral Nutrition/Amino Acids/Dextrose/ Fat Emulsion Intravenous 1,512 ml @ 63 mls/hr TPN CONT IV Last administered on 05/15/19at 21:58; Start 05/15/19 at 22:00; Stop 05/16/19 at 21:59; Status DC Lidocaine HCl (Buffered Lidocaine 1%) 3 ml STK-MED ONCE .ROUTE ; Start 05/15/19 at 13:19; Stop 05/15/19 at 13:19; Status DC Midazolam HCl (Versed) 2 mg STK-MED ONCE .ROUTE ; Start 05/15/19 at 13:47; Stop 05/15/19 at 13:47; Status DC Fentanyl Citrate (Fentanyl 2ml Vial) 100 mcg STK-MED ONCE .ROUTE ; Start 05/15/19 at 13:47; Stop 05/15/19 at 13:47; Status DC Flumazenil (Romazicon) 0.5 mg STK-MED ONCE IV ; Start 05/15/19 at 13:47; Stop 05/15/19 at 13:47; Status DC Naloxone HCl (Narcan) 0.4 mg STK-MED ONCE .ROUTE ; Start 05/15/19 at 13:47; Stop 05/15/19 at 13:47; Status DC Lidocaine HCl (Buffered Lidocaine 1%) 4 ml 1X ONCE IJ Last administered on 05/15/19at 14:30; Start 05/15/19 at 14:30; Stop 05/15/19 at 14:38; Status DC Midazolam HCl (Versed) 1 mg 1X ONCE IV Last administered on 05/15/19at 14:30; Start 05/15/19 at 14:30; Stop 05/15/19 at 14:38; Status DC Fentanyl Citrate (Fentanyl 2ml Vial) 50 mcg 1X ONCE IV Last administered on 05/15/19at 14:30; Start 05/15/19 at 14:30; Stop 05/15/19 at 14:38; Status DC Insulin Human Lispro (HumaLOG) 0-9 UNITS TIDWMEALS SQ ; Start 05/16/19 at 17:00; Stop 05/16/19 at 13:29; Status DC Dextrose (Dextrose 50%-Water Syringe) 12.5 gm PRN Q15MIN PRN IV SEE COMMENTS; Start 05/16/19 at 13:15 Insulin Human Regular (HumuLIN R VIAL) 8 unit 1X ONCE IV Last administered on 05/16/19at 13:36; Start 05/16/19 at 13:15; Stop 05/16/19 at 13:22; Status DC Insulin Human Lispro (HumaLOG) 0-9 UNITS Q6HRS SQ Last administered on 05/18/19at 13:04; Start 05/16/19 at 18:00 Sodium Chloride 90 meq/Potassium Chloride 50 meq/ Potassium Phosphate 13.6 mmol/Magnesium Sulfate 10 meq/ Calcium Gluconate 10 meq/ Multivitamins 10 ml/Chromium/ Copper/Manganese/ Seleni/Zn 1 ml/ Total Parenteral Nutrition/Amino Acids/Dextrose/ Fat Emulsion Intravenous 1,512 ml @ 63 mls/hr TPN CONT IV Last administered on 05/16/19at 21:56; Start 05/16/19 at 22:00; Stop 05/17/19 at 21:59; Status DC Sodium Chloride 1,000 ml @ 75 mls/hr [id number] IV Last administered on 05/18/19at 06:37; Start 05/16/19 at 14:45 Insulin Glargine (Lantus Syringe) 22 unit QHS SQ Last administered on 05/17/19at 20:46; Start 05/17/19 at 08:30; Stop 05/18/19 at 07:49; Status DC Labetalol HCl (Normodyne Iv Push) 10 mg PRN Q2HR PRN IVP HYPERTENSION; Start 05/17/19 at 08:30 Insulin Glargine (Lantus Syringe) 10 unit 1X STAT SQ Last administered on 05/17/19at 09:13; Start 05/17/19 at 08:30; Stop 05/17/19 at 08:33; Status DC Pantoprazole Sodium (PROTONIX VIAL for IV PUSH) 40 mg DAILYAC IVP Last administered on 05/18/19at 06:37; Start 05/17/19 at 13:00 Sodium Chloride 60 meq/Potassium Chloride 30 meq/ Potassium Phosphate 13.6 mmol/Magnesium Sulfate 10 meq/ Calcium Gluconate 10 meq/ Multivitamins 10 ml/Chromium/ Copper/Manganese/ Seleni/Zn 1 ml/ Total Parenteral Nutrition/Amino Acids/Dextrose/ Fat Emulsion Intravenous 1,512 ml @ 63 mls/hr TPN CONT IV Last administered on 05/17/19at 23:13; Start 05/17/19 at 22:00; Stop 05/18/19 at 21:59 Haloperidol Lactate (Haldol Inj) 2 mg 1X ONCE IM ; Start 05/17/19 at 22:30; Stop 05/17/19 at 22:31; Status Cancel Haloperidol Lactate (Haldol Inj) 2 mg 1X ONCE IVP Last administered on 05/17/19at 23:01; Start 05/17/19 at 22:45; Stop 05/17/19 at 22:46; Status DC Lorazepam (Ativan Inj) 1 mg PRN Q6HRS PRN IVP ANXIETY / AGITATION Last administered on 05/18/19at 01:32; Start 05/18/19 at 01:30; Stop 05/18/19 at 07:48; Status DC Haloperidol Lactate (Haldol Inj) 5 mg 1X ONCE IVP Last administered on 05/18/19at 04:41; Start 05/18/19 at 04:30; Stop 05/18/19 at 04:31; Status DC Lorazepam (Ativan Inj) 1 mg 1X ONCE IVP Last administered on 05/18/19at 05:02; Start 05/18/19 at 04:30; Stop 05/18/19 at 04:31; Status DC Lorazepam (Ativan Inj) 2 mg PRN Q4HRS PRN IVP ANXIETY / AGITATION Last administered on 05/18/19at 08:02; Start 05/18/19 at 07:45 Insulin Glargine (Lantus Syringe) 35 unit QHS SQ ; Start 05/18/19 at 21:00 Insulin Glargine (Lantus Syringe) 10 unit ONCE STAT SQ Last administered on 05/18/19at 07:47; Start 05/18/19 at 07:47; Stop 05/18/19 at 07:51; Status DC Haloperidol Lactate (Haldol Inj) 5 mg PRN Q6HRS PRN IVP AGITATION 2nd choice; Start 05/18/19 at 08:00 Meropenem 500 mg/ Sodium Chloride 50 ml @ 100 mls/hr Q6HRS IV Last administered on 05/18/19at 14:21; Start 05/18/19 at 09:00 Bacitracin (Bacitracin Zinc Oint Pkt) 1 pkt DAILY TP Last administered on 05/18/19at 10:13; Start 05/18/19 at 10:15 Potassium Phosphate 13.6 mmol/Magnesium Sulfate 10 meq/ Calcium Gluconate 10 meq/ Multivitamins 10 ml/Chromium/ Copper/Manganese/ Seleni/Zn 1 ml/ Total Parenteral Nutrition/Amino Acids/Dextrose/ Fat Emulsion Intravenous 1,512 ml @ 63 mls/hr TPN CONT IV ; Start 05/18/19 at 22:00; Stop 05/19/19 at 21:59 Hydromorphone HCl (Dilaudid) 1 mg PRN Q2HR PRN IV SEVERE PAIN 7-10 Last administered on 05/18/19at 13:27; Start 05/18/19 at 13:15 Active Scripts Active Reported Venlafaxine Hcl Er (Venlafaxine Hcl) 75 Mg Cap.er.24h 75 Mg PO DAILY Simvastatin 10 Mg Tablet 10 Mg PO DAILY Metformin Hcl 1,000 Mg Tablet 1,000 Mg PO BIDWMEALS Meloxicam 15 Mg Tablet Unknown Dose PO DAILY Lisinopril 10 Mg Tablet Unknown Dose PO DAILY Humalog (Insulin Lispro) 100 Unit/1 Ml Cartridge 100 Unit SQ Sinemet 25-100 Mg Tablet (Carbidopa/Levodopa) 1 Each Tablet 1 Tab PO TID Allergies Allergies: Allergies Coded Allergies Type Severity Reaction Last Updated Verified sulfamethoxazole Allergy Severe Altered Mental Status 05/08/19 Yes trimethoprim Allergy Severe Altered Mental Status 05/08/19 Yes Sulfa (Sulfonamide Antibiotics) Allergy Intermediate 05/08/19 Yes ciprofloxacin Allergy Intermediate rash 05/08/19 Yes codeine Allergy Intermediate Rash 05/08/19 Yes ROS Review of System The patient denies any associated fevers, chills, headache, ear pain, rhinorrhea, sore throat, stiff neck, productive cough, chest pain, shortness of breath, back or flank pain, abdominal pain, nausea, vomiting, diarrhea, constipation, dysuria, rash, numbness, weakness, tingling, incontinence, difficulty ambulating, or diaphoresis. Physical Exam Physical Exam General: Well developed, well nourished, no acute distress, well appearing HEENT: Pupils equally round and reactive to light, EOMI, no discharge, normal conjunctiva Neck: Supple, no nuchal rigidity, no JVD, trachea midline, no tenderness Cardiac: RRR, no murmurs, no gallops, no rubs Chest/Lungs: CTAB, no wheeze, no rhonchi, no crackles Abdomen: soft, non-distended, no guarding, no peritoneal signs, non-tender Back: No tenderness Extremities: no edema, pulses intact, non-tender,capillary refill <3 sec bilateral upper and lower extremities, Neuro: Alert and oriented x 4, no focal deficits, normal speech Vitals Vitals: Vital Signs Date Time Temp Pulse Resp B/P (MAP) Pulse Ox O2 Delivery O2 Flow Rate FiO2 05/18/19 14:05 96 Nasal Cannula 2.0 05/18/19 11:42 100.2 108 22 140/80 (100) 100.2 Labs Labs Laboratory Tests Test 05/16/19 18:06 05/16/19 22:22 05/17/19 00:06 05/17/19 05:56 Glucose (Fingerstick) 288 mg/dL (70-99) 297 mg/dL (70-99) 340 mg/dL (70-99) 310 mg/dL (70-99) Test 05/17/19 06:15 05/17/19 12:53 05/17/19 18:15 05/17/19 20:39 Sodium Level 142 mmol/L (136-145) Potassium Level 4.4 mmol/L (3.5-5.1) Chloride Level 112 mmol/L (98-107) Carbon Dioxide Level 21 mmol/L (21-32) Anion Gap 9 (6-14) Blood Urea Nitrogen 48 mg/dL (8-26) Creatinine 1.6 mg/dL (0.7-1.3) Estimated GFR (Cockcroft-Gault) 42.6 Glucose Level 344 mg/dL (70-99) Calcium Level 8.7 mg/dL (8.5-10.1) Phosphorus Level 3.1 mg/dL (2.6-4.7) Magnesium Level 2.1 mg/dL (1.8-2.4) Glucose (Fingerstick) 330 mg/dL (70-99) 305 mg/dL (70-99) 284 mg/dL (70-99) Test 05/18/19 00:05 05/18/19 05:40 05/18/19 12:37 Glucose (Fingerstick) 304 mg/dL (70-99) 244 mg/dL (70-99) White Blood Count 14.5 x10^3/uL (4.0-11.0) Red Blood Count 2.68 x10^6/uL (4.30-5.70) Hemoglobin 8.2 g/dL (13.0-17.5) Hematocrit 25.7 % (39.0-53.0) Mean Corpuscular Volume 96 fL (79-100) Mean Corpuscular Hemoglobin 31 pg (25-35) Mean Corpuscular Hemoglobin Concent 32 g/dL (31-37) Red Cell Distribution Width 14.9 % (11.5-14.5) Platelet Count 387 x10^3/uL (140-400) Neutrophils (%) (Auto) 84 % (31-73) Lymphocytes (%) (Auto) 7 % (24-48) Monocytes (%) (Auto) 8 % (0-9) Eosinophils (%) (Auto) 1 % (0-3) Basophils (%) (Auto) 1 % (0-3) Neutrophils # (Auto) 12.1 x10^3/uL (1.8-7.7) Lymphocytes # (Auto) 1.1 x10^3/uL (1.0-4.8) Monocytes # (Auto) 1.1 x10^3/uL (0.0-1.1) Eosinophils # (Auto) 0.1 x10^3/uL (0.0-0.7) Basophils # (Auto) 0.1 x10^3/uL (0.0-0.2) Sodium Level 148 mmol/L (136-145) Potassium Level 4.9 mmol/L (3.5-5.1) Chloride Level 116 mmol/L (98-107) Carbon Dioxide Level 20 mmol/L (21-32) Anion Gap 12 (6-14) Blood Urea Nitrogen 36 mg/dL (8-26) Creatinine 1.6 mg/dL (0.7-1.3) Estimated GFR (Cockcroft-Gault) 42.6 Glucose Level 259 mg/dL (70-99) Calcium Level 8.8 mg/dL (8.5-10.1) Phosphorus Level 2.8 mg/dL (2.6-4.7) Magnesium Level 1.9 mg/dL (1.8-2.4) Laboratory Tests Test 05/17/19 18:15 05/17/19 20:39 05/18/19 00:05 05/18/19 05:40 Glucose (Fingerstick) 305 mg/dL (70-99) 284 mg/dL (70-99) 304 mg/dL (70-99) White Blood Count 14.5 x10^3/uL (4.0-11.0) Red Blood Count 2.68 x10^6/uL (4.30-5.70) Hemoglobin 8.2 g/dL (13.0-17.5) Hematocrit 25.7 % (39.0-53.0) Mean Corpuscular Volume 96 fL (79-100) Mean Corpuscular Hemoglobin 31 pg (25-35) Mean Corpuscular Hemoglobin Concent 32 g/dL (31-37) Red Cell Distribution Width 14.9 % (11.5-14.5) Platelet Count 387 x10^3/uL (140-400) Neutrophils (%) (Auto) 84 % (31-73) Lymphocytes (%) (Auto) 7 % (24-48) Monocytes (%) (Auto) 8 % (0-9) Eosinophils (%) (Auto) 1 % (0-3) Basophils (%) (Auto) 1 % (0-3) Neutrophils # (Auto) 12.1 x10^3/uL (1.8-7.7) Lymphocytes # (Auto) 1.1 x10^3/uL (1.0-4.8) Monocytes # (Auto) 1.1 x10^3/uL (0.0-1.1) Eosinophils # (Auto) 0.1 x10^3/uL (0.0-0.7) Basophils # (Auto) 0.1 x10^3/uL (0.0-0.2) Sodium Level 148 mmol/L (136-145) Potassium Level 4.9 mmol/L (3.5-5.1) Chloride Level 116 mmol/L (98-107) Carbon Dioxide Level 20 mmol/L (21-32) Anion Gap 12 (6-14) Blood Urea Nitrogen 36 mg/dL (8-26) Creatinine 1.6 mg/dL (0.7-1.3) Estimated GFR (Cockcroft-Gault) 42.6 Glucose Level 259 mg/dL (70-99) Calcium Level 8.8 mg/dL (8.5-10.1) Phosphorus Level 2.8 mg/dL (2.6-4.7) Magnesium Level 1.9 mg/dL (1.8-2.4) Test 05/18/19 12:37 Glucose (Fingerstick) 244 mg/dL (70-99) PATRICE LOVE MD May 18, 2019 14:51
[2019-05-18] MEDS: LACOSAMIDE 100 MG in IV DEXTROSE 5% 50 ML IV SCH ×2 (15:34→23:03)
[2019-05-18 15:35] VITALS: BP 140/53
[2019-05-18 19:00] VITALS: BP 133/74
[2019-05-18] MEDS: SIMVASTATIN 10 MG TABLET PO SCH (20:08)
[2019-05-18] MEDS ORDERED: DEXTROSE 70% IV SCH ×8 (22:00)
[2019-05-18] MEDS ORDERED: TOTAL PARENTERAL NUTRITION IV SCH ×8 (22:00)
[2019-05-18] MEDS ORDERED: AMINO ACID IV SCH ×8 (22:00)
[2019-05-18] MEDS ORDERED: [UNRECOGNIZED DRUG - OTHER] IV SCH ×8 (22:00)
[2019-05-18 23:00] VITALS: BP 141/68
[2019-05-18] MEDS: INSULIN GLARGINE SYRINGE. SQ SCH (23:19)
[2019-05-18] MEDS: HALOPERIDOL LACTATE 5 MG/ML VIAL. IVP PRN (23:58)
[2019-05-19] MEDS: HYDROmorphone 2 MG/ML VIAL IV PRN ×3 (01:27→07:07)
[2019-05-19 03:00] VITALS: BP 134/61
[2019-05-19 04:47] LABS: BASO # 0.1 x10^3/uL (0.0-0.2); BASO % 1 % (0-3); EOS # 0.2 x10^3/uL (0.0-0.7); EOS % 1 % (0-3); HEMATOCRIT 24.7 % (39.0-53.0); HEMOGLOBIN 7.8 g/dL (13.0-17.5); LYMPH # 1.4 x10^3/uL (1.0-4.8); LYMPH % 12 % (24-48); MEAN CORPUSCULAR HEMOGLOBIN 32 pg (25-35); MEAN CORPUSCULAR HGB CONC 32 g/dL (31-37); MEAN CORPUSCULAR VOLUME 103 fL (79-100); MONO # 1.3 x10^3/uL (0.0-1.1); MONO % 11 % (0-9); NEUT # 9.1 x10^3/uL (1.8-7.7); NEUT % 76 % (31-73); PLATELET COUNT 403 x10^3/uL (140-400); RED CELL DISTRIBUTION WIDTH 16.5 % (11.5-14.5)
[2019-05-19] MEDS: IV NORMAL SALINE 1000ML BAG 1,000 ML IV SCH ×2 (04:50→09:25)
[2019-05-19] MEDS: MEROPENEM 500 MG in IV NORMAL SALINE 50ML 50 ML IV SCH ×4 (05:46→23:26)
[2019-05-19] MEDS: INSULIN LISPRO 300 UNITS/3 ML VIAL. SQ SCH ×4 (06:18→23:26)
[2019-05-19 06:26] LABS: ALBUMIN/GLOBULIN RATIO 0.5 (1.0-1.7); CALCIUM 8.8 mg/dL (8.5-10.1); CREATININE 1.5 mg/dL (0.7-1.3); GFR 45.9; MAGNESIUM 1.9 mg/dL (1.8-2.4); PHOSPHORUS 3.4 mg/dL (2.6-4.7); POTASSIUM 4.9 mmol/L (3.5-5.1); TOTAL BILIRUBIN 0.4 mg/dL (0.2-1.0); TOTAL PROTEIN 6.2 g/dL (6.4-8.2)
[2019-05-19 07:00] VITALS: BP 117/67
[2019-05-19] MEDS: HALOPERIDOL LACTATE 5 MG/ML VIAL. IVP PRN ×2 (07:07→16:20)
[2019-05-19] MEDS: PANTOPRAZOLE IV PUSH 40 MG VIAL. IVP SCH (07:07)
[2019-05-19] MEDS: VENLAFAXINE XR 37.5 MG CAP.ER.24H. PO SCH (07:15)
[2019-05-19] MEDS: PRIMIDONE 50 MG TABLET PO SCH ×2 (07:15→20:24)
[2019-05-19] MEDS: LACTOBACILLUS RHAMNOSUS GG 1 CAPSULE. PO SCH ×2 (07:17→20:24)
[2019-05-19] MEDS: BUDESONIDE 0.5 MG/2 ML NEBU. NEB SCH ×2 (08:00→19:54)
[2019-05-19] MEDS: IPRATRPIUM/ALBUTEROL 0.5/2.5MG 3 ML NEBU. NEB SCH ×4 (08:00→19:54)
[2019-05-19] MEDS: LACOSAMIDE 100 MG in IV DEXTROSE 5% 50 ML IV SCH ×2 (08:17→20:38)
[2019-05-19] MEDS: BACITRACIN TOPICAL OINT PACKET. TP SCH (08:19)
[2019-05-19] MEDS: HEPARIN for SUB-Q USE 5,000 UNIT/ML VIAL. SQ SCH ×2 (08:22→20:42)
--- NOTE | 2019-05-19 08:32 | PDOC ---
FABI MASSEY CHAMPAGNE MAKER 05/19/19 0832: SURGICAL PROGRESS NOTE Subjective confusion mitts Vital Signs Vital Signs Date Time Temp Pulse Resp B/P (MAP) Pulse Ox O2 Delivery O2 Flow Rate FiO2 05/19/19 08:01 Nasal Cannula 2.0 05/19/19 07:37 20 05/19/19 07:00 99.0 94 117/67 (84) 97 99.0 I&O Intake and Output 05/19/19 07:00 Intake Total 1710 ml Output Total 1950 ml Balance -240 ml Intake Oral 0 ml IV Total 1710 ml Gastric Drainage Total 975 ml Drainage Total 975 ml # Voids 7 General: Other (resting, confusion) HEENT: Other (Ng in place) Abdomen: Soft, Other (drain tahng bilious ) Labs Laboratory Tests Test 05/17/19 12:53 05/17/19 18:15 05/17/19 20:39 05/18/19 00:05 Glucose (Fingerstick) 330 mg/dL (70-99) 305 mg/dL (70-99) 284 mg/dL (70-99) 304 mg/dL (70-99) Test 05/18/19 05:40 05/18/19 06:12 05/18/19 12:37 05/18/19 17:00 White Blood Count 14.5 x10^3/uL (4.0-11.0) Red Blood Count 2.68 x10^6/uL (4.30-5.70) Hemoglobin 8.2 g/dL (13.0-17.5) Hematocrit 25.7 % (39.0-53.0) Mean Corpuscular Volume 96 fL (79-100) Mean Corpuscular Hemoglobin 31 pg (25-35) Mean Corpuscular Hemoglobin Concent 32 g/dL (31-37) Red Cell Distribution Width 14.9 % (11.5-14.5) Platelet Count 387 x10^3/uL (140-400) Neutrophils (%) (Auto) 84 % (31-73) Lymphocytes (%) (Auto) 7 % (24-48) Monocytes (%) (Auto) 8 % (0-9) Eosinophils (%) (Auto) 1 % (0-3) Basophils (%) (Auto) 1 % (0-3) Neutrophils # (Auto) 12.1 x10^3/uL (1.8-7.7) Lymphocytes # (Auto) 1.1 x10^3/uL (1.0-4.8) Monocytes # (Auto) 1.1 x10^3/uL (0.0-1.1) Eosinophils # (Auto) 0.1 x10^3/uL (0.0-0.7) Basophils # (Auto) 0.1 x10^3/uL (0.0-0.2) Sodium Level 148 mmol/L (136-145) Potassium Level 4.9 mmol/L (3.5-5.1) Chloride Level 116 mmol/L (98-107) Carbon Dioxide Level 20 mmol/L (21-32) Anion Gap 12 (6-14) Blood Urea Nitrogen 36 mg/dL (8-26) Creatinine 1.6 mg/dL (0.7-1.3) Estimated GFR (Cockcroft-Gault) 42.6 Glucose Level 259 mg/dL (70-99) Calcium Level 8.8 mg/dL (8.5-10.1) Phosphorus Level 2.8 mg/dL (2.6-4.7) Magnesium Level 1.9 mg/dL (1.8-2.4) Glucose (Fingerstick) 240 mg/dL (70-99) 244 mg/dL (70-99) Ionized Calcium 1.26 mmol/L (1.13-1.32) Creatine Kinase 189 U/L (39-308) Thyroid Stimulating Hormone (TSH) 3.714 uIU/mL (0.358-3.74) Test 05/18/19 17:41 05/18/19 23:14 05/19/19 04:20 05/19/19 05:50 Glucose (Fingerstick) 185 mg/dL (70-99) 290 mg/dL (70-99) White Blood Count 12.0 x10^3/uL (4.0-11.0) Red Blood Count 2.40 x10^6/uL (4.30-5.70) Hemoglobin 7.8 g/dL (13.0-17.5) Hematocrit 24.7 % (39.0-53.0) Mean Corpuscular Volume 103 fL (79-100) Mean Corpuscular Hemoglobin 32 pg (25-35) Mean Corpuscular Hemoglobin Concent 32 g/dL (31-37) Red Cell Distribution Width 16.5 % (11.5-14.5) Platelet Count 403 x10^3/uL (140-400) Neutrophils (%) (Auto) 76 % (31-73) Lymphocytes (%) (Auto) 12 % (24-48) Monocytes (%) (Auto) 11 % (0-9) Eosinophils (%) (Auto) 1 % (0-3) Basophils (%) (Auto) 1 % (0-3) Neutrophils # (Auto) 9.1 x10^3/uL (1.8-7.7) Lymphocytes # (Auto) 1.4 x10^3/uL (1.0-4.8) Monocytes # (Auto) 1.3 x10^3/uL (0.0-1.1) Eosinophils # (Auto) 0.2 x10^3/uL (0.0-0.7) Basophils # (Auto) 0.1 x10^3/uL (0.0-0.2) Sodium Level 150 mmol/L (136-145) Potassium Level 4.9 mmol/L (3.5-5.1) Chloride Level 117 mmol/L (98-107) Carbon Dioxide Level 21 mmol/L (21-32) Anion Gap 12 (6-14) Blood Urea Nitrogen 33 mg/dL (8-26) Creatinine 1.5 mg/dL (0.7-1.3) Estimated GFR (Cockcroft-Gault) 45.9 BUN/Creatinine Ratio 22 (6-20) Glucose Level 232 mg/dL (70-99) Calcium Level 8.8 mg/dL (8.5-10.1) Phosphorus Level 3.4 mg/dL (2.6-4.7) Magnesium Level 1.9 mg/dL (1.8-2.4) Total Bilirubin 0.4 mg/dL (0.2-1.0) Aspartate Amino Transf (AST/SGOT) 23 U/L (15-37) Alanine Aminotransferase (ALT/SGPT) 25 U/L (16-63) Alkaline Phosphatase 92 U/L (46-116) Total Protein 6.2 g/dL (6.4-8.2) Albumin 2.0 g/dL (3.4-5.0) Albumin/Globulin Ratio 0.5 (1.0-1.7) Test 05/19/19 06:14 Glucose (Fingerstick) 232 mg/dL (70-99) Laboratory Tests Test 05/18/19 12:37 05/18/19 17:00 05/18/19 17:41 05/18/19 23:14 Glucose (Fingerstick) 244 mg/dL (70-99) 185 mg/dL (70-99) 290 mg/dL (70-99) Ionized Calcium 1.26 mmol/L (1.13-1.32) Creatine Kinase 189 U/L (39-308) Thyroid Stimulating Hormone (TSH) 3.714 uIU/mL (0.358-3.74) Test 05/19/19 04:20 05/19/19 05:50 05/19/19 06:14 White Blood Count 12.0 x10^3/uL (4.0-11.0) Red Blood Count 2.40 x10^6/uL (4.30-5.70) Hemoglobin 7.8 g/dL (13.0-17.5) Hematocrit 24.7 % (39.0-53.0) Mean Corpuscular Volume 103 fL (79-100) Mean Corpuscular Hemoglobin 32 pg (25-35) Mean Corpuscular Hemoglobin Concent 32 g/dL (31-37) Red Cell Distribution Width 16.5 % (11.5-14.5) Platelet Count 403 x10^3/uL (140-400) Neutrophils (%) (Auto) 76 % (31-73) Lymphocytes (%) (Auto) 12 % (24-48) Monocytes (%) (Auto) 11 % (0-9) Eosinophils (%) (Auto) 1 % (0-3) Basophils (%) (Auto) 1 % (0-3) Neutrophils # (Auto) 9.1 x10^3/uL (1.8-7.7) Lymphocytes # (Auto) 1.4 x10^3/uL (1.0-4.8) Monocytes # (Auto) 1.3 x10^3/uL (0.0-1.1) Eosinophils # (Auto) 0.2 x10^3/uL (0.0-0.7) Basophils # (Auto) 0.1 x10^3/uL (0.0-0.2) Sodium Level 150 mmol/L (136-145) Potassium Level 4.9 mmol/L (3.5-5.1) Chloride Level 117 mmol/L (98-107) Carbon Dioxide Level 21 mmol/L (21-32) Anion Gap 12 (6-14) Blood Urea Nitrogen 33 mg/dL (8-26) Creatinine 1.5 mg/dL (0.7-1.3) Estimated GFR (Cockcroft-Gault) 45.9 BUN/Creatinine Ratio 22 (6-20) Glucose Level 232 mg/dL (70-99) Calcium Level 8.8 mg/dL (8.5-10.1) Phosphorus Level 3.4 mg/dL (2.6-4.7) Magnesium Level 1.9 mg/dL (1.8-2.4) Total Bilirubin 0.4 mg/dL (0.2-1.0) Aspartate Amino Transf (AST/SGOT) 23 U/L (15-37) Alanine Aminotransferase (ALT/SGPT) 25 U/L (16-63) Alkaline Phosphatase 92 U/L (46-116) Total Protein 6.2 g/dL (6.4-8.2) Albumin 2.0 g/dL (3.4-5.0) Albumin/Globulin Ratio 0.5 (1.0-1.7) Glucose (Fingerstick) 232 mg/dL (70-99) Problem List Problems Medical Problems: (1) Perforated intestine, nontraumatic Status: Acute Assessment/Plan supportive measures NG, bowel rest, TPN, abx CLIFFORD WONG MD 05/19/19 1049: SURGICAL PROGRESS NOTE Assessment/Plan as above continue current care FABI MASSEY CHAMPAGNE MAKER May 19, 2019 08:32 CLIFFORD WONG MD May 19, 2019 10:49
--- NOTE | 2019-05-19 08:40 | PDOC ---
PULMONARY PROGRESS NOTES Subjective PT IS CONFUSED MOVES ALL EXT Vitals Vital Signs Date Time Temp Pulse Resp B/P (MAP) Pulse Ox O2 Delivery O2 Flow Rate FiO2 05/19/19 08:01 Nasal Cannula 2.0 05/19/19 07:37 20 05/19/19 07:00 99.0 94 117/67 (84) 97 99.0 Comments No ROS obtainable General: Confused HEENT: Other Lungs: Clear, Other (deminished bs) Cardiovascular: S1, S2 Abdomen: Soft, Non-tender, Other (no mass) Extremities: No Edema Skin: Warm Labs Laboratory Tests Test 05/17/19 12:53 05/17/19 18:15 05/17/19 20:39 05/18/19 00:05 Glucose (Fingerstick) 330 mg/dL (70-99) 305 mg/dL (70-99) 284 mg/dL (70-99) 304 mg/dL (70-99) Test 05/18/19 05:40 05/18/19 06:12 05/18/19 12:37 05/18/19 17:00 White Blood Count 14.5 x10^3/uL (4.0-11.0) Red Blood Count 2.68 x10^6/uL (4.30-5.70) Hemoglobin 8.2 g/dL (13.0-17.5) Hematocrit 25.7 % (39.0-53.0) Mean Corpuscular Volume 96 fL (79-100) Mean Corpuscular Hemoglobin 31 pg (25-35) Mean Corpuscular Hemoglobin Concent 32 g/dL (31-37) Red Cell Distribution Width 14.9 % (11.5-14.5) Platelet Count 387 x10^3/uL (140-400) Neutrophils (%) (Auto) 84 % (31-73) Lymphocytes (%) (Auto) 7 % (24-48) Monocytes (%) (Auto) 8 % (0-9) Eosinophils (%) (Auto) 1 % (0-3) Basophils (%) (Auto) 1 % (0-3) Neutrophils # (Auto) 12.1 x10^3/uL (1.8-7.7) Lymphocytes # (Auto) 1.1 x10^3/uL (1.0-4.8) Monocytes # (Auto) 1.1 x10^3/uL (0.0-1.1) Eosinophils # (Auto) 0.1 x10^3/uL (0.0-0.7) Basophils # (Auto) 0.1 x10^3/uL (0.0-0.2) Sodium Level 148 mmol/L (136-145) Potassium Level 4.9 mmol/L (3.5-5.1) Chloride Level 116 mmol/L (98-107) Carbon Dioxide Level 20 mmol/L (21-32) Anion Gap 12 (6-14) Blood Urea Nitrogen 36 mg/dL (8-26) Creatinine 1.6 mg/dL (0.7-1.3) Estimated GFR (Cockcroft-Gault) 42.6 Glucose Level 259 mg/dL (70-99) Calcium Level 8.8 mg/dL (8.5-10.1) Phosphorus Level 2.8 mg/dL (2.6-4.7) Magnesium Level 1.9 mg/dL (1.8-2.4) Glucose (Fingerstick) 240 mg/dL (70-99) 244 mg/dL (70-99) Ionized Calcium 1.26 mmol/L (1.13-1.32) Creatine Kinase 189 U/L (39-308) Thyroid Stimulating Hormone (TSH) 3.714 uIU/mL (0.358-3.74) Test 05/18/19 17:41 05/18/19 23:14 05/19/19 04:20 05/19/19 05:50 Glucose (Fingerstick) 185 mg/dL (70-99) 290 mg/dL (70-99) White Blood Count 12.0 x10^3/uL (4.0-11.0) Red Blood Count 2.40 x10^6/uL (4.30-5.70) Hemoglobin 7.8 g/dL (13.0-17.5) Hematocrit 24.7 % (39.0-53.0) Mean Corpuscular Volume 103 fL (79-100) Mean Corpuscular Hemoglobin 32 pg (25-35) Mean Corpuscular Hemoglobin Concent 32 g/dL (31-37) Red Cell Distribution Width 16.5 % (11.5-14.5) Platelet Count 403 x10^3/uL (140-400) Neutrophils (%) (Auto) 76 % (31-73) Lymphocytes (%) (Auto) 12 % (24-48) Monocytes (%) (Auto) 11 % (0-9) Eosinophils (%) (Auto) 1 % (0-3) Basophils (%) (Auto) 1 % (0-3) Neutrophils # (Auto) 9.1 x10^3/uL (1.8-7.7) Lymphocytes # (Auto) 1.4 x10^3/uL (1.0-4.8) Monocytes # (Auto) 1.3 x10^3/uL (0.0-1.1) Eosinophils # (Auto) 0.2 x10^3/uL (0.0-0.7) Basophils # (Auto) 0.1 x10^3/uL (0.0-0.2) Sodium Level 150 mmol/L (136-145) Potassium Level 4.9 mmol/L (3.5-5.1) Chloride Level 117 mmol/L (98-107) Carbon Dioxide Level 21 mmol/L (21-32) Anion Gap 12 (6-14) Blood Urea Nitrogen 33 mg/dL (8-26) Creatinine 1.5 mg/dL (0.7-1.3) Estimated GFR (Cockcroft-Gault) 45.9 BUN/Creatinine Ratio 22 (6-20) Glucose Level 232 mg/dL (70-99) Calcium Level 8.8 mg/dL (8.5-10.1) Phosphorus Level 3.4 mg/dL (2.6-4.7) Magnesium Level 1.9 mg/dL (1.8-2.4) Total Bilirubin 0.4 mg/dL (0.2-1.0) Aspartate Amino Transf (AST/SGOT) 23 U/L (15-37) Alanine Aminotransferase (ALT/SGPT) 25 U/L (16-63) Alkaline Phosphatase 92 U/L (46-116) Total Protein 6.2 g/dL (6.4-8.2) Albumin 2.0 g/dL (3.4-5.0) Albumin/Globulin Ratio 0.5 (1.0-1.7) Test 05/19/19 06:14 Glucose (Fingerstick) 232 mg/dL (70-99) Laboratory Tests Test 05/18/19 12:37 05/18/19 17:00 05/18/19 17:41 05/18/19 23:14 Glucose (Fingerstick) 244 mg/dL (70-99) 185 mg/dL (70-99) 290 mg/dL (70-99) Ionized Calcium 1.26 mmol/L (1.13-1.32) Creatine Kinase 189 U/L (39-308) Thyroid Stimulating Hormone (TSH) 3.714 uIU/mL (0.358-3.74) Test 05/19/19 04:20 05/19/19 05:50 05/19/19 06:14 White Blood Count 12.0 x10^3/uL (4.0-11.0) Red Blood Count 2.40 x10^6/uL (4.30-5.70) Hemoglobin 7.8 g/dL (13.0-17.5) Hematocrit 24.7 % (39.0-53.0) Mean Corpuscular Volume 103 fL (79-100) Mean Corpuscular Hemoglobin 32 pg (25-35) Mean Corpuscular Hemoglobin Concent 32 g/dL (31-37) Red Cell Distribution Width 16.5 % (11.5-14.5) Platelet Count 403 x10^3/uL (140-400) Neutrophils (%) (Auto) 76 % (31-73) Lymphocytes (%) (Auto) 12 % (24-48) Monocytes (%) (Auto) 11 % (0-9) Eosinophils (%) (Auto) 1 % (0-3) Basophils (%) (Auto) 1 % (0-3) Neutrophils # (Auto) 9.1 x10^3/uL (1.8-7.7) Lymphocytes # (Auto) 1.4 x10^3/uL (1.0-4.8) Monocytes # (Auto) 1.3 x10^3/uL (0.0-1.1) Eosinophils # (Auto) 0.2 x10^3/uL (0.0-0.7) Basophils # (Auto) 0.1 x10^3/uL (0.0-0.2) Sodium Level 150 mmol/L (136-145) Potassium Level 4.9 mmol/L (3.5-5.1) Chloride Level 117 mmol/L (98-107) Carbon Dioxide Level 21 mmol/L (21-32) Anion Gap 12 (6-14) Blood Urea Nitrogen 33 mg/dL (8-26) Creatinine 1.5 mg/dL (0.7-1.3) Estimated GFR (Cockcroft-Gault) 45.9 BUN/Creatinine Ratio 22 (6-20) Glucose Level 232 mg/dL (70-99) Calcium Level 8.8 mg/dL (8.5-10.1) Phosphorus Level 3.4 mg/dL (2.6-4.7) Magnesium Level 1.9 mg/dL (1.8-2.4) Total Bilirubin 0.4 mg/dL (0.2-1.0) Aspartate Amino Transf (AST/SGOT) 23 U/L (15-37) Alanine Aminotransferase (ALT/SGPT) 25 U/L (16-63) Alkaline Phosphatase 92 U/L (46-116) Total Protein 6.2 g/dL (6.4-8.2) Albumin 2.0 g/dL (3.4-5.0) Albumin/Globulin Ratio 0.5 (1.0-1.7) Glucose (Fingerstick) 232 mg/dL (70-99) Medications Active Scripts Medications Dose Route/Sig Max Daily Dose Days Date Category Venlafaxine Hcl 75 Mg Tablet Unknown Dose PO DAILY 02/18/19 Reported Simvastatin 10 Mg Tablet 10 Mg PO DAILY 02/18/19 Reported Metformin Hcl 1,000 Mg Tablet 1,000 Mg PO BIDWMEALS 02/18/19 Reported Meloxicam 15 Mg Tablet Unknown Dose PO DAILY 02/18/19 Reported Lisinopril 10 Mg Tablet Unknown Dose PO DAILY 02/18/19 Reported Humalog (Insulin Lispro) 100 Unit/1 Ml Cartridge 100 Unit SQ 02/18/19 Reported Sinemet 25-100 Mg Tablet (Carbidopa/Levodopa) 1 Each Tablet 1 Tab PO TID 02/18/19 Reported Comments I reviewed CXR taken this morning. Radiologist's interpretation not yet available. No new infiltrates. CXR is actually better compared to film of a few days ago. Impression . IMPRESSION: 1. EXPECTED RESP FAILURE status post repair of a perforated duodenal ulcer. 2. Status post laparoscopy with open laparotomy for closure of a duodenal ulcer with Dawood patch. 05/08 3. Acute exacerbation of chronic obstructive pulmonary disease, resolving. 4. Tobacco dependence. 5. Hypertension. 6. Recent right shoulder repair. 7. Hypotension. 8. Fever. 9. Possible sepsis present upon admission. 10. CT-guided abdominal drain placement as described. 05/15 11. confusion and agitation of uncertain cause. With good oxygenation, cxr and clear lung exam I do not think this is pulmonary in origin. Primary service is evaluating and managing further. Plan . WILL CONTINUE THE SAME FOR NOW CHECK ABG PULMONARY HYGIENE D/C SMOKING TG RAZO MD May 19, 2019 08:40
--- NOTE | 2019-05-19 08:56 | PDOC ---
Infectious Disease Note Subjective Subjective S/p ativian and Haldol. Developed Delirium overnight now sleeping ROS ROS no n/v/d/sob/fever Vital Sign Vital Signs Vital Signs Date Time Temp Pulse Resp B/P (MAP) Pulse Ox O2 Delivery O2 Flow Rate FiO2 05/19/19 08:01 Nasal Cannula 2.0 05/19/19 07:37 20 05/19/19 07:00 99.0 94 117/67 (84) 97 99.0 Physical Exam PHYSICAL EXAM GENERAL: Laying in bed, NAD - HEENT: Pupils equally round. Oropharynx is clear. NGT NECK: Supple. LUNGS: Clear to auscultation. HEART: S1, S2 regular. ABDOMEN: Obese, soft, less distension. NT with hypoactive bowel sounds. Surgical dressings are dry and MACKENZIE drain intact- with continued bilious drainage. New MACKENZIE with serous fluid EXTREMITIES: No gross edema or cyanosis.. Right shoulder incision well-approx stable, clean. SKIN: Warm to touch. No signs of rash. NEUROLOGIC: sleepy, no focal deficit LUE - clean Labs Lab Laboratory Tests Test 05/18/19 12:37 05/18/19 17:00 05/18/19 17:41 05/18/19 23:14 Glucose (Fingerstick) 244 mg/dL (70-99) 185 mg/dL (70-99) 290 mg/dL (70-99) Ionized Calcium 1.26 mmol/L (1.13-1.32) Creatine Kinase 189 U/L (39-308) Thyroid Stimulating Hormone (TSH) 3.714 uIU/mL (0.358-3.74) Test 05/19/19 04:20 05/19/19 05:50 05/19/19 06:14 White Blood Count 12.0 x10^3/uL (4.0-11.0) Red Blood Count 2.40 x10^6/uL (4.30-5.70) Hemoglobin 7.8 g/dL (13.0-17.5) Hematocrit 24.7 % (39.0-53.0) Mean Corpuscular Volume 103 fL (79-100) Mean Corpuscular Hemoglobin 32 pg (25-35) Mean Corpuscular Hemoglobin Concent 32 g/dL (31-37) Red Cell Distribution Width 16.5 % (11.5-14.5) Platelet Count 403 x10^3/uL (140-400) Neutrophils (%) (Auto) 76 % (31-73) Lymphocytes (%) (Auto) 12 % (24-48) Monocytes (%) (Auto) 11 % (0-9) Eosinophils (%) (Auto) 1 % (0-3) Basophils (%) (Auto) 1 % (0-3) Neutrophils # (Auto) 9.1 x10^3/uL (1.8-7.7) Lymphocytes # (Auto) 1.4 x10^3/uL (1.0-4.8) Monocytes # (Auto) 1.3 x10^3/uL (0.0-1.1) Eosinophils # (Auto) 0.2 x10^3/uL (0.0-0.7) Basophils # (Auto) 0.1 x10^3/uL (0.0-0.2) Sodium Level 150 mmol/L (136-145) Potassium Level 4.9 mmol/L (3.5-5.1) Chloride Level 117 mmol/L (98-107) Carbon Dioxide Level 21 mmol/L (21-32) Anion Gap 12 (6-14) Blood Urea Nitrogen 33 mg/dL (8-26) Creatinine 1.5 mg/dL (0.7-1.3) Estimated GFR (Cockcroft-Gault) 45.9 BUN/Creatinine Ratio 22 (6-20) Glucose Level 232 mg/dL (70-99) Calcium Level 8.8 mg/dL (8.5-10.1) Phosphorus Level 3.4 mg/dL (2.6-4.7) Magnesium Level 1.9 mg/dL (1.8-2.4) Total Bilirubin 0.4 mg/dL (0.2-1.0) Aspartate Amino Transf (AST/SGOT) 23 U/L (15-37) Alanine Aminotransferase (ALT/SGPT) 25 U/L (16-63) Alkaline Phosphatase 92 U/L (46-116) Total Protein 6.2 g/dL (6.4-8.2) Albumin 2.0 g/dL (3.4-5.0) Albumin/Globulin Ratio 0.5 (1.0-1.7) Glucose (Fingerstick) 232 mg/dL (70-99) Micro Microbiology 10/31/19 AFB Specimen Processing Tissue - Final, Resulted 05/15/19 Acid Fast Bacilli Culture, Resulted Pending 05/15/19 Gram Stain - Final, Resulted 05/15/19 Fungal Culture, Resulted Pending 05/15/19 Fungal Culture Result 1, Resulted Pending Objective Assessment Acute Encephalopathy - Perforated duodenal ulcer s/p repair, 05/08 no apparent cultures, repair failure S/p Abd drain placed 05/15 sce to fluid collection Fever - times one post procedure 05/15 - improved now Leukocytosis - better today- initial Pancytopenia ? in part reactive Abx allergy: Sulfa and cipro w/ rash Acute respiratory failure, now on venti mask -s/p Bronchoscopy with BAL, 05/09. mucous plugging, culture pending GREGG -mild increase Nonobstructing calculus of the right kidney. Recent right shoulder joint replacement, 05/06 at [facility] Plan of Care hydration cont dapto, meropenem and micafungin f/u cultures/labs in am ct pending d/w surgery D/w nursing SULEMAN BASURTO MD May 19, 2019 08:56
--- NOTE | 2019-05-19 09:28 | NUR ---
Report to Ted RN. Patient very restless and agitated at shift change 0700, moving arms in broad restless movements and legs, pulling mitts off and grumbling noises. No speech and not opening eyes. Haldol and Dilaudid given, see emar. Patient incontinent of large amount of urine requiring total bed linen change and gown change, after patient turned and moved with gown and linen change, now resting quietly. Patient had 110 cc brown dark red drainage from right anterior abd. drain labelled #1 with foul odor. Patient's and brother here to visit and able to talk with Paige Ponce surgery P[employer]ER [employer]ATCHER and Dr. [place] ID. Unable to flush right posterior flank drain as unable to disconnect to flush, reported to Ted RN with report. Patient to CT abd/pelvis today, patient's verb. understanding POC. See nursing interventions and communication.
--- NOTE | 2019-05-19 10:57 | RAD ---
EXAM: CT HEAD WITHOUT CONTRAST. HISTORY: Altered mental status. TECHNIQUE: Computed tomography of the head was performed without intravenous contrast. One or more of the following individualized dose reduction techniques were utilized for this examination: 1. Automated exposure control. 2. Adjustment of the mA and/or kV according to patient size. 3. Use of iterative reconstruction technique. COMPARISON: None. FINDINGS: There is no intracranial hemorrhage. Hypoattenuation within the periventricular white matter indicates mild to moderate chronic microangiopathic change. Prominence of the lateral ventricles and hemispheric sulci indicates mild atrophy. The visualized paranasal sinuses appear clear. There are changes of bilateral cataract surgery. The temporal bones are unremarkable. The calvarium reveals no suspicious lesions. There are atherosclerotic calcifications of the internal carotid and vertebral arteries. A nasogastric tube is noted. IMPRESSION: 1. No acute intracranial findings. 2. 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 Electronically signed by: Yin Amezquita MD (05/19/2019 10:54 AM) [facility]
--- NOTE | 2019-05-19 10:57 | PDOC ---
PROGRESS NOTES Chief Complaint Chief Complaint A/P: s/p perf viscus repair 05/09 05/14 CTExtravasation of oral contrast within the right upper quadrant extending from the first portion of the duodenum, concerning for persistent duodenal perforation. Scattered pneumoperitoneum. Increased loculated fluid within the right mid abdomen adjacent to small bowel loops with wall thickening. Increased mesenteric edema and body wall edema. SEVERE SEPSIS Begin Dapto/Cefepime/Flagyl/Micafungin with leukocytosis and increased THANG drainage despite abx CT 05/14 with extravasation Severe protein-caloric malnutrition GREGG - likely vasomotor nephropathy Perforated duodenal ulcer - Diagnostic laparoscopy with open laparotomy and closure of duodenal ulcer and Dawood patch 05-09 Small amount of ascites is seen within the abdomen and pelvis HTN, Fair control Acute hypoxemic respiratory failure Acute exacerbation of chronic obstructive pulmonary disease. Tobacco dependence. Recent right shoulder repair Movement disorder NOS - parkinsonian symptoms - will restart meds HLD - restart statin DM 2 insulin req REcent RT shoulder sx (total arthroplasty at [facility]) MEt encepahlopathy sec to medical course History of Present Illness History of Present Illness HE is snowed HAd to give so much sedation yesterday bec of shakes, agitation, pulling out NGT, line etc t.o icu after repair of perf DU - laparoscopic KUB and CXR sunday shows good findings actually BS ok. NGT still in place, output? TPN still PLAN: I CUT BACK ON THE DILAUDID< ATIVAN< HALDOL ETC CT head ordered by neuro (got involved sunday bec of change in MS)- read pending SItter for now DIet and NGT recs per GS Vitals Vitals Vital Signs Date Time Temp Pulse Resp B/P (MAP) Pulse Ox O2 Delivery O2 Flow Rate FiO2 05/19/19 08:01 Nasal Cannula 2.0 05/19/19 07:37 20 05/19/19 07:00 99.0 94 117/67 (84) 97 99.0 Physical Exam Physical Exam GENERAL: Laying in bed, NAD - HEENT: Pupils equally round. Oropharynx is clear. NGT NECK: Supple. LUNGS: Clear to auscultation. HEART: S1, S2 regular. ABDOMEN: Obese, soft, less distension. NT with hypoactive bowel sounds. Surgical dressings are dry and THANG drain intact- with continued bilious drainage. New THANG with serous fluid EXTREMITIES: No gross edema or cyanosis.. Right shoulder incision well-approx stable, clean. SKIN: Warm to touch. No signs of rash. NEUROLOGIC: sleepy, no focal deficit LUE - clean General: Other (resting, confusion) Heart: Regular rate (SR), Other (distant heart sounds) Lungs: Clear, Other (deminished bs) Abdomen: Soft, Other (drain thang bilious ) Extremities: No clubbing, No cyanosis, No edema, Normal pulses, No tenderness/swelling Skin: Other (abdominal surgical incision) Labs LABS Laboratory Tests Test 05/18/19 12:37 05/18/19 17:00 05/18/19 17:41 05/18/19 23:14 Glucose (Fingerstick) 244 mg/dL (70-99) 185 mg/dL (70-99) 290 mg/dL (70-99) Ionized Calcium 1.26 mmol/L (1.13-1.32) Creatine Kinase 189 U/L (39-308) Vitamin B12 Level 1462 pg/mL (247-911) Thyroid Stimulating Hormone (TSH) 3.714 uIU/mL (0.358-3.74) Test 05/19/19 04:20 05/19/19 05:50 05/19/19 06:14 White Blood Count 12.0 x10^3/uL (4.0-11.0) Red Blood Count 2.40 x10^6/uL (4.30-5.70) Hemoglobin 7.8 g/dL (13.0-17.5) Hematocrit 24.7 % (39.0-53.0) Mean Corpuscular Volume 103 fL (79-100) Mean Corpuscular Hemoglobin 32 pg (25-35) Mean Corpuscular Hemoglobin Concent 32 g/dL (31-37) Red Cell Distribution Width 16.5 % (11.5-14.5) Platelet Count 403 x10^3/uL (140-400) Neutrophils (%) (Auto) 76 % (31-73) Lymphocytes (%) (Auto) 12 % (24-48) Monocytes (%) (Auto) 11 % (0-9) Eosinophils (%) (Auto) 1 % (0-3) Basophils (%) (Auto) 1 % (0-3) Neutrophils # (Auto) 9.1 x10^3/uL (1.8-7.7) Lymphocytes # (Auto) 1.4 x10^3/uL (1.0-4.8) Monocytes # (Auto) 1.3 x10^3/uL (0.0-1.1) Eosinophils # (Auto) 0.2 x10^3/uL (0.0-0.7) Basophils # (Auto) 0.1 x10^3/uL (0.0-0.2) Sodium Level 150 mmol/L (136-145) Potassium Level 4.9 mmol/L (3.5-5.1) Chloride Level 117 mmol/L (98-107) Carbon Dioxide Level 21 mmol/L (21-32) Anion Gap 12 (6-14) Blood Urea Nitrogen 33 mg/dL (8-26) Creatinine 1.5 mg/dL (0.7-1.3) Estimated GFR (Cockcroft-Gault) 45.9 BUN/Creatinine Ratio 22 (6-20) Glucose Level 232 mg/dL (70-99) Calcium Level 8.8 mg/dL (8.5-10.1) Phosphorus Level 3.4 mg/dL (2.6-4.7) Magnesium Level 1.9 mg/dL (1.8-2.4) Total Bilirubin 0.4 mg/dL (0.2-1.0) Aspartate Amino Transf (AST/SGOT) 23 U/L (15-37) Alanine Aminotransferase (ALT/SGPT) 25 U/L (16-63) Alkaline Phosphatase 92 U/L (46-116) Total Protein 6.2 g/dL (6.4-8.2) Albumin 2.0 g/dL (3.4-5.0) Albumin/Globulin Ratio 0.5 (1.0-1.7) Glucose (Fingerstick) 232 mg/dL (70-99) Review of Systems Review of Systems snowed, Assessment and Plan Assessmemt and Plan Problems Medical Problems: (1) Perforated intestine, nontraumatic Status: Acute Comment Review of Relevant I have reviewed the following items adriano (where applicable) has been applied. Labs Laboratory Tests Test 05/17/19 12:53 05/17/19 18:15 05/17/19 20:39 05/18/19 00:05 Glucose (Fingerstick) 330 mg/dL (70-99) 305 mg/dL (70-99) 284 mg/dL (70-99) 304 mg/dL (70-99) Test 05/18/19 05:40 05/18/19 06:12 05/18/19 12:37 05/18/19 17:00 White Blood Count 14.5 x10^3/uL (4.0-11.0) Red Blood Count 2.68 x10^6/uL (4.30-5.70) Hemoglobin 8.2 g/dL (13.0-17.5) Hematocrit 25.7 % (39.0-53.0) Mean Corpuscular Volume 96 fL (79-100) Mean Corpuscular Hemoglobin 31 pg (25-35) Mean Corpuscular Hemoglobin Concent 32 g/dL (31-37) Red Cell Distribution Width 14.9 % (11.5-14.5) Platelet Count 387 x10^3/uL (140-400) Neutrophils (%) (Auto) 84 % (31-73) Lymphocytes (%) (Auto) 7 % (24-48) Monocytes (%) (Auto) 8 % (0-9) Eosinophils (%) (Auto) 1 % (0-3) Basophils (%) (Auto) 1 % (0-3) Neutrophils # (Auto) 12.1 x10^3/uL (1.8-7.7) Lymphocytes # (Auto) 1.1 x10^3/uL (1.0-4.8) Monocytes # (Auto) 1.1 x10^3/uL (0.0-1.1) Eosinophils # (Auto) 0.1 x10^3/uL (0.0-0.7) Basophils # (Auto) 0.1 x10^3/uL (0.0-0.2) Sodium Level 148 mmol/L (136-145) Potassium Level 4.9 mmol/L (3.5-5.1) Chloride Level 116 mmol/L (98-107) Carbon Dioxide Level 20 mmol/L (21-32) Anion Gap 12 (6-14) Blood Urea Nitrogen 36 mg/dL (8-26) Creatinine 1.6 mg/dL (0.7-1.3) Estimated GFR (Cockcroft-Gault) 42.6 Glucose Level 259 mg/dL (70-99) Calcium Level 8.8 mg/dL (8.5-10.1) Phosphorus Level 2.8 mg/dL (2.6-4.7) Magnesium Level 1.9 mg/dL (1.8-2.4) Glucose (Fingerstick) 240 mg/dL (70-99) 244 mg/dL (70-99) Ionized Calcium 1.26 mmol/L (1.13-1.32) Creatine Kinase 189 U/L (39-308) Vitamin B12 Level 1462 pg/mL (247-911) Thyroid Stimulating Hormone (TSH) 3.714 uIU/mL (0.358-3.74) Test 05/18/19 17:41 05/18/19 23:14 05/19/19 04:20 05/19/19 05:50 Glucose (Fingerstick) 185 mg/dL (70-99) 290 mg/dL (70-99) White Blood Count 12.0 x10^3/uL (4.0-11.0) Red Blood Count 2.40 x10^6/uL (4.30-5.70) Hemoglobin 7.8 g/dL (13.0-17.5) Hematocrit 24.7 % (39.0-53.0) Mean Corpuscular Volume 103 fL (79-100) Mean Corpuscular Hemoglobin 32 pg (25-35) Mean Corpuscular Hemoglobin Concent 32 g/dL (31-37) Red Cell Distribution Width 16.5 % (11.5-14.5) Platelet Count 403 x10^3/uL (140-400) Neutrophils (%) (Auto) 76 % (31-73) Lymphocytes (%) (Auto) 12 % (24-48) Monocytes (%) (Auto) 11 % (0-9) Eosinophils (%) (Auto) 1 % (0-3) Basophils (%) (Auto) 1 % (0-3) Neutrophils # (Auto) 9.1 x10^3/uL (1.8-7.7) Lymphocytes # (Auto) 1.4 x10^3/uL (1.0-4.8) Monocytes # (Auto) 1.3 x10^3/uL (0.0-1.1) Eosinophils # (Auto) 0.2 x10^3/uL (0.0-0.7) Basophils # (Auto) 0.1 x10^3/uL (0.0-0.2) Sodium Level 150 mmol/L (136-145) Potassium Level 4.9 mmol/L (3.5-5.1) Chloride Level 117 mmol/L (98-107) Carbon Dioxide Level 21 mmol/L (21-32) Anion Gap 12 (6-14) Blood Urea Nitrogen 33 mg/dL (8-26) Creatinine 1.5 mg/dL (0.7-1.3) Estimated GFR (Cockcroft-Gault) 45.9 BUN/Creatinine Ratio 22 (6-20) Glucose Level 232 mg/dL (70-99) Calcium Level 8.8 mg/dL (8.5-10.1) Phosphorus Level 3.4 mg/dL (2.6-4.7) Magnesium Level 1.9 mg/dL (1.8-2.4) Total Bilirubin 0.4 mg/dL (0.2-1.0) Aspartate Amino Transf (AST/SGOT) 23 U/L (15-37) Alanine Aminotransferase (ALT/SGPT) 25 U/L (16-63) Alkaline Phosphatase 92 U/L (46-116) Total Protein 6.2 g/dL (6.4-8.2) Albumin 2.0 g/dL (3.4-5.0) Albumin/Globulin Ratio 0.5 (1.0-1.7) Test 05/19/19 06:14 Glucose (Fingerstick) 232 mg/dL (70-99) Laboratory Tests Test 05/18/19 12:37 05/18/19 17:00 05/18/19 17:41 05/18/19 23:14 Glucose (Fingerstick) 244 mg/dL (70-99) 185 mg/dL (70-99) 290 mg/dL (70-99) Ionized Calcium 1.26 mmol/L (1.13-1.32) Creatine Kinase 189 U/L (39-308) Vitamin B12 Level 1462 pg/mL (247-911) Thyroid Stimulating Hormone (TSH) 3.714 uIU/mL (0.358-3.74) Test 05/19/19 04:20 05/19/19 05:50 05/19/19 06:14 White Blood Count 12.0 x10^3/uL (4.0-11.0) Red Blood Count 2.40 x10^6/uL (4.30-5.70) Hemoglobin 7.8 g/dL (13.0-17.5) Hematocrit 24.7 % (39.0-53.0) Mean Corpuscular Volume 103 fL (79-100) Mean Corpuscular Hemoglobin 32 pg (25-35) Mean Corpuscular Hemoglobin Concent 32 g/dL (31-37) Red Cell Distribution Width 16.5 % (11.5-14.5) Platelet Count 403 x10^3/uL (140-400) Neutrophils (%) (Auto) 76 % (31-73) Lymphocytes (%) (Auto) 12 % (24-48) Monocytes (%) (Auto) 11 % (0-9) Eosinophils (%) (Auto) 1 % (0-3) Basophils (%) (Auto) 1 % (0-3) Neutrophils # (Auto) 9.1 x10^3/uL (1.8-7.7) Lymphocytes # (Auto) 1.4 x10^3/uL (1.0-4.8) Monocytes # (Auto) 1.3 x10^3/uL (0.0-1.1) Eosinophils # (Auto) 0.2 x10^3/uL (0.0-0.7) Basophils # (Auto) 0.1 x10^3/uL (0.0-0.2) Sodium Level 150 mmol/L (136-145) Potassium Level 4.9 mmol/L (3.5-5.1) Chloride Level 117 mmol/L (98-107) Carbon Dioxide Level 21 mmol/L (21-32) Anion Gap 12 (6-14) Blood Urea Nitrogen 33 mg/dL (8-26) Creatinine 1.5 mg/dL (0.7-1.3) Estimated GFR (Cockcroft-Gault) 45.9 BUN/Creatinine Ratio 22 (6-20) Glucose Level 232 mg/dL (70-99) Calcium Level 8.8 mg/dL (8.5-10.1) Phosphorus Level 3.4 mg/dL (2.6-4.7) Magnesium Level 1.9 mg/dL (1.8-2.4) Total Bilirubin 0.4 mg/dL (0.2-1.0) Aspartate Amino Transf (AST/SGOT) 23 U/L (15-37) Alanine Aminotransferase (ALT/SGPT) 25 U/L (16-63) Alkaline Phosphatase 92 U/L (46-116) Total Protein 6.2 g/dL (6.4-8.2) Albumin 2.0 g/dL (3.4-5.0) Albumin/Globulin Ratio 0.5 (1.0-1.7) Glucose (Fingerstick) 232 mg/dL (70-99) Microbiology 05/15/19 AFB Specimen Processing Tissue - Final, Resulted 05/15/19 Acid Fast Bacilli Culture, Resulted Pending 05/15/19 Gram Stain - Final, Resulted 05/15/19 Fungal Culture, Resulted Pending 05/15/19 Fungal Culture Result 1, Resulted Pending Medications Current Medications Fentanyl Citrate (Fentanyl 2ml Vial) 50 mcg PRN Q15MIN PRN IV PAIN GREATER THAN 3/10 Last administered on 05/08/19at 19:27; Start 05/08/19 at 16:30; Stop 05/08/19 at 21:00; Status DC Sodium Chloride 1,000 ml @ 250 mls/hr Q4H IV Last administered on 05/08/19at 16:54; Start 05/08/19 at 16:19; Stop 05/08/19 at 20:18; Status DC Metoclopramide HCl (Reglan Vial) 10 mg 1X ONCE IVP Last administered on 05/08/19at 16:51; Start 05/08/19 at 17:00; Stop 05/08/19 at 17:01; Status DC Diphenhydramine HCl (Benadryl) 25 mg 1X ONCE IVP Last administered on 05/08/19at 16:51; Start 05/08/19 at 17:00; Stop 05/08/19 at 17:01; Status DC Iohexol (Omnipaque 350 Mg/ml) 90 ml 1X ONCE IV Last administered on 05/08/19at 17:45; Start 05/08/19 at 17:30; Stop 05/08/19 at 17:31; Status DC Info (CONTRAST GIVEN -- Rx MONITORING) 1 each PRN DAILY PRN MC SEE COMMENTS; Start 05/08/19 at 17:30; Stop 05/10/19 at 17:29; Status DC Hydromorphone HCl (Dilaudid) 1 mg 1X ONCE IV Last administered on 05/08/19at 18:23; Start 05/08/19 at 18:30; Stop 05/08/19 at 18:31; Status DC Piperacillin Sod/ Tazobactam Sod 3.375 gm/Sodium Chloride 50 ml @ 100 mls/hr 1X ONCE IV Last administered on 05/08/19at 19:06; Start 05/08/19 at 19:00; Stop 05/08/19 at 19:29; Status DC Sodium Chloride 1,000 ml @ 1,000 mls/hr 1X ONCE IV Last administered on 05/08/19at 19:06; Start 05/08/19 at 19:00; Stop 05/08/19 at 19:59; Status DC Ondansetron HCl (Zofran) 4 mg STK-MED ONCE .ROUTE ; Start 05/08/19 at 19:34; Stop 05/08/19 at 19:34; Status DC Propofol 20 ml @ As Directed STK-MED ONCE IV ; Start 05/08/19 at 19:34; Stop 05/08/19 at 19:34; Status DC Lidocaine HCl (Lidocaine Pf 2% Vial) 5 ml STK-MED ONCE .ROUTE ; Start 05/08/19 at 19:34; Stop 05/08/19 at 19:34; Status DC Dexamethasone Sodium Phosphate (Decadron) 4 mg STK-MED ONCE .ROUTE ; Start 05/08/19 at 19:34; Stop 05/08/19 at 19:34; Status DC Fentanyl Citrate (Fentanyl 2ml Vial) 100 mcg STK-MED ONCE .ROUTE ; Start 05/08/19 at 19:34; Stop 05/08/19 at 19:34; Status DC Succinylcholine Chloride (Anectine) 200 mg STK-MED ONCE .ROUTE ; Start 05/08/19 at 19:34; Stop 05/08/19 at 19:34; Status DC Rocuronium [place] (Zemuron) 50 mg STK-MED ONCE .ROUTE ; Start 05/08/19 at 19:34; Stop 05/08/19 at 19:34; Status DC Ondansetron HCl (Zofran) 4 mg PRN Q6HRS PRN IV NAUSEA/VOMITING; Start 05/08/19 at 19:45; Stop 05/08/19 at 23:59; Status DC Fentanyl Citrate (Fentanyl 2ml Vial) 25 mcg PRN Q5MIN PRN IV MILD PAIN 1-3; Start 05/08/19 at 19:45; Stop 05/08/19 at 23:59; Status DC Fentanyl Citrate (Fentanyl 2ml Vial) 50 mcg PRN Q5MIN PRN IV MODERATE TO SEVERE PAIN; Start 05/08/19 at 19:45; Stop 05/08/19 at 23:59; Status DC Ringer's Solution 1,000 ml @ 30 mls/hr Q24H IV Last administered on 05/08/19at 23:06; Start 05/08/19 at 20:00; Stop 05/09/19 at 01:00; Status DC Prochlorperazine Edisylate (Compazine) 5 mg PACU PRN PRN IV NAUSEA, MRX1; Start 05/08/19 at 19:45; Stop 05/08/19 at 23:59; Status DC Insulin Human Lispro (HumaLOG VIAL for OP,RR ONLY) 0-10 units PRN Q1HR PRN SQ PER PROTOCOL; Start 05/08/19 at 19:45; Stop 05/08/19 at 23:59; Status DC Bupivacaine HCl/ Epinephrine Bitart (Sensorcaine-Epi 0.25%-1:126835 Mpf) 30 ml 1X ONCE INJ Last administered on 05/08/19at 20:32; Start 05/08/19 at 20:00; Stop 05/08/19 at 20:01; Status DC Ketamine HCl (Ketamine) 50 mg STK-MED ONCE .ROUTE ; Start 05/08/19 at 20:12; Stop 05/08/19 at 20:12; Status DC Phenylephrine HCl (PHENYLEPHRINE in 0.9% NACL PF) 1 mg STK-MED ONCE IV ; Start 05/08/19 at 20:33; Stop 05/08/19 at 20:33; Status DC Ephedrine Sulfate (ePHEDrine PF IN SALINE SYRINGE) 50 mg STK-MED ONCE IV ; Start 05/08/19 at 20:36; Stop 05/08/19 at 20:36; Status DC Albumin Human 500 ml @ As Directed STK-MED ONCE IV ; Start 05/08/19 at 20:55; Stop 05/08/19 at 20:55; Status DC Glycopyrrolate (Robinul) 1 mg STK-MED ONCE .ROUTE ; Start 05/08/19 at 21:27; Stop 05/08/19 at 21:27; Status DC Neostigmine Methylsulfate (Neostigmine Methylsulfate) 5 mg STK-MED ONCE .ROUTE ; Start 05/08/19 at 21:27; Stop 05/08/19 at 21:27; Status DC Bupivacaine HCl (Sensorcaine Mpf 0.5%) 30 ml STK-MED ONCE .ROUTE ; Start 05/08/19 at 21:39; Stop 05/08/19 at 21:39; Status DC Epinephrine HCl (Adrenalin) 1 mg STK-MED ONCE .ROUTE ; Start 05/08/19 at 21:39; Stop 05/08/19 at 21:39; Status DC Sevoflurane (Ultane) 60 ml STK-MED ONCE IH ; Start 05/08/19 at 21:44; Stop 05/08/19 at 21:44; Status DC Sodium Chloride 1,000 ml @ 125 mls/hr Q8H IV Last administered on 05/08/19at 23:45; Start 05/08/19 at 22:00; Stop 05/09/19 at 15:21; Status DC Ondansetron HCl (Zofran) 4 mg PRN Q6HRS PRN IVP NAUSEA/VOMITING 1ST CHOICE; Start 05/08/19 at 22:00 Fluconazole/ Sodium Chloride 100 ml @ 100 mls/hr Q24H IV Last administered on 05/13/19at 21:14; Start 05/08/19 at 22:00; Stop 05/14/19 at 10:28; Status DC Hydromorphone HCl (Dilaudid) 1 mg PRN Q4HRS PRN IV SEVERE PAIN 7-10 Last administered on 05/18/19at 10:14; Start 05/08/19 at 22:00; Stop 05/18/19 at 13:0 6; Status DC Piperacillin Sod/ Tazobactam Sod 3.375 gm/Sodium Chloride 50 ml @ 100 mls/hr Q6HRS IV Last administered on 05/14/19at 05:49; Start 05/09/19 at 00:00; Stop 05/14/19 at 10:28; Status DC Pantoprazole Sodium (PROTONIX VIAL for IV PUSH) 40 mg DAILY IVP Last administered on 05/11/19at 09:43; Start 05/09/19 at 09:00; Stop 05/12/19 at 08:30; Status DC Insulin Human Regular 150 unit/ Sodium Chloride 151.5 ml @ 0 mls/hr CONT PRN IV SEE I/O RECORD; Start 05/08/19 at 23:00; Status UNV Insulin Human Regular 150 unit/ Sodium Chloride 151.5 ml @ 0 mls/hr CONT PRN IV SEE I/O RECORD Last administered on 05/08/19at 23:03; Start 05/08/19 at 23:00; Stop 05/12/19 at 13:06; Status DC Dextrose (Dextrose 50%-Water Syringe) 12.5 gm PRN Q15MIN PRN IV LOW BLOOD SUGAR; Start 05/08/19 at 23:00; Stop 05/17/19 at 08:35; Status DC Dextrose 250 ml PRN Q15MIN PRN IV LOW BLOOD SUGAR; Start 05/08/19 at 23:00 Albumin Human 500 ml @ 250 mls/hr 1X ONCE IV Last administered on 05/09/19at 00:10; Start 05/09/19 at 00:30; Stop 05/09/19 at 02:29; Status DC Norepinephrine Bitartrate 250 ml @ 20.156 mls/ hr CONT PRN IV SEE I/O RECORD; Start 05/09/19 at 00:00; Stop 05/12/19 at 13:06; Status DC Dextrose/Sodium Chloride 1,000 ml @ 150 mls/hr Q6H40M IV Last administered on 05/09/19at 12:28; Start 05/09/19 at 08:45; Stop 05/09/19 at 18:30; Status DC Sodium Chloride 500 ml @ 500 mls/hr PRN Q2HR PRN IV SEE COMMENTS; Start 05/09/19 at 11:15 Sodium Chloride 1,000 ml @ 2,190 mls/hr Q28M IV ; Start 05/09/19 at 12:39; Stop 05/09/19 at 13:39; Status DC Sodium Chloride 500 ml @ 1,000 mls/hr PRN Q30MIN PRN IV SEE COMMENTS; Start 05/09/19 at 12:45; Stop 05/09/19 at 12:50; Status DC Norepinephrine Bitartrate 250 ml @ 19.688 mls/ hr CONT PRN IV SEE I/O RECORD; Start 05/09/19 at 12:45; Status Cancel Dobutamine HCl/ Dextrose 250 ml @ 15.75 mls/ hr CONT PRN IV SEE I/O RECORD; Start 05/09/19 at 12:45; Stop 05/12/19 at 13:06; Status DC Insulin Human Lispro (HumaLOG) 0-7 UNITS TIDWMEALS SQ ; Start 05/09/19 at 17:00; Stop 05/09/19 at 19:36; Status DC Dextrose (Dextrose 50%-Water Syringe) 12.5 gm PRN Q15MIN PRN IV SEE COMMENTS; Start 05/09/19 at 15:30; Status UNV Sodium Chloride 1,000 ml @ 60 mls/hr [id number] IV Last administered on 05/10/19at 16:47; Start 05/09/19 at 15:30; Stop 05/12/19 at 10:57; Status DC Insulin Human Lispro (HumaLOG) 0-7 UNITS Q6HRS SQ Last administered on 05/13/19at 05:50; Start 05/10/19 at 00:00; Stop 05/13/19 at 08:27; Status DC Albuterol/ Ipratropium (Duoneb) 3 ml RTQID NEB Last administered on 05/19/19at 08:00; Start 05/10/19 at 08:00 Budesonide (Pulmicort) 0.5 mg RTBID NEB Last administered on 05/19/19at 08:00; Start 05/10/19 at 08:00 Heparin Sodium (Porcine) (Heparin Sodium) 5,000 unit BID SQ Last administered on 05/19/19at 08:22; Start 05/11/19 at 10:00 Phenol (Chloraseptic) 1 spray PRN Q2HR PRN PO SORE THROAT Last administered on 05/11/19at 13:12; Start 05/11/19 at 11:30 Multi-Ingredient Ointment (Analgesic [place]) 1 jazlyn PRN QID PRN TP MUSCLE PAIN; Start 05/11/19 at 11:30 Amino Acids/ Glycerin/ Electrolytes 1,000 ml @ 80 mls/hr [id number] IV Last administered on 05/15/19at 05:59; Start 05/11/19 at 12:00; Stop 05/15/19 at 21:59; Status DC Hydralazine HCl (Apresoline Inj) 10 mg PRN Q4HRS PRN IVP ELEVATED BP, SEE COMM ENTS; Start 05/11/19 at 11:45 Pantoprazole Sodium (Protonix) 40 mg DAILYAC PO Last administered on 05/14/19at 06:04; Start 05/12/19 at 09:00; Stop 05/17/19 at 11:29; Status DC Carbidopa/Levodopa (Sinemet 25/100) 1 tab TID PO ; Start 05/12/19 at 14:00; Stop 05/12/19 at 13:40; Status DC Lisinopril (Prinivil) 10 mg DAILY PO Last administered on 05/14/19at 09:14; Start 05/13/19 at 09:00; Stop 05/16/19 at 10:07; Status DC Simvastatin (Zocor) 10 mg QHS PO Last administered on 05/14/19at 21:08; Start 05/12/19 at 21:00 Venlafaxine HCl (Effexor) 75 mg DAILY PO Last administered on 05/12/19at 13:34; Start 05/12/19 at 13:30; Stop 05/12/19 at 14:20; Status DC Primidone (Mysoline) 50 mg DAILY PO ; Start 05/12/19 at 13:45; Stop 05/12/19 at 14:27; Status DC Insulin Glargine (Lantus Syringe) 15 unit QHS SQ Last administered on 05/16/19at 22:25; Start 05/12/19 at 21:00; Stop 05/17/19 at 08:31; Status DC Venlafaxine HCl (Effexor Xr) 75 mg DAILY PO Last administered on 05/14/19at 09:13; Start 05/13/19 at 09:00 Lactobacillus Rhamnosus (Culturelle) 1 cap BID PO Last administered on 05/14/19at 21:08; Start 05/12/19 at 21:00 Primidone (Mysoline) 25 mg BID PO Last administered on 05/14/19at 21:08; Start 05/12/19 at 14:30 Gabapentin (Neurontin) 300 mg PRN QHS PRN PO NEUROPATHIC PAIN Last administered on 05/12/19at 20:53; Start 05/12/19 at 17:45 Acetaminophen (Tylenol) 500 mg PRN Q6HRS PRN PO MILD PAIN / TEMP; Start 05/13/19 at 08:30 Tramadol HCl (Ultram) 50 mg PRN Q6HRS PRN PO PAIN MOD TO SEV Last administered on 05/14/19at 04:27; Start 05/13/19 at 08:30 Clonidine HCl (Catapres) 0.1 mg PRN Q1HR PRN PO HYPERTENSION; Start 05/13/19 at 08:30 Ondansetron HCl (Zofran) 4 mg PRN Q6HRS PRN IVP NAUSEA/VOMITING; Start 05/13/19 at 08:30; Status UNV Venlafaxine HCl (Effexor Xr) 37.5 mg BID PO ; Start 05/13/19 at 09:00; Stop 05/13/19 at 08:33; Status DC Iohexol (Omnipaque 240 Mg/ml) 30 ml 1X ONCE PO Last administered on 05/14/19at 08:45; Start 05/14/19 at 08:45; Stop 05/14/19 at 08:48; Status DC Iohexol (Omnipaque 300 Mg/ml) 60 ml 1X ONCE IV Last administered on 05/14/19at 08:45; Start 05/14/19 at 08:45; Stop 05/14/19 at 08:48; Status DC Info (CONTRAST GIVEN -- Rx MONITORING) 1 each PRN DAILY PRN MC SEE COMMENTS; Start 05/14/19 at 09:00; Stop 05/16/19 at 08:59; Status DC Daptomycin 570 mg/ Sodium Chloride 50 ml @ 100 mls/hr Q24H IV Last administered on 05/18/19at 12:48; Start 05/14/19 at 11:30 Micafungin Sodium 100 mg/Dextrose 100 ml @ 100 mls/hr Q24H IV Last administered on 05/18/19at 11:45; Start 05/14/19 at 11:00 Cefepime HCl (Maxipime) 2 gm Q8HRS IVP Last administered on 05/18/19at 06:25; Start 05/14/19 at 12:00; Stop 05/18/19 at 08:18; Status DC Metronidazole 100 ml @ 100 mls/hr Q8HRS IV Last administered on 05/18/19at 06:28; Start 05/14/19 at 14:00; Stop 05/18/19 at 08:18; Status DC Lidocaine HCl (Buffered Lidocaine 1%) 3 ml STK-MED ONCE .ROUTE ; Start 05/14/19 at 12:43; Stop 05/14/19 at 12:44; Status DC Lidocaine HCl (Buffered Lidocaine 1%) 3 ml 1X ONCE IJ Last administered on at 13:14; Start 05/14/19 at 13:00; Stop 05/14/19 at 13:02; Status DC Info (Tpn Per Pharmacy) 1 each PRN DAILY PRN MC SEE COMMENTS Last administered on 05/18/19at 11:41; Start 05/14/19 at 16:00 Sodium Chloride 90 meq/Potassium Chloride 50 meq/ Potassium Phosphate 13.6 mmol/Magnesium Sulfate 10 meq/ Calcium Gluconate 10 meq/ Multivitamins 10 ml/Chromium/ Copper/Manganese/ Seleni/Zn 1 ml/ Total Parenteral Nutrition/Amino Acids/Dextrose/ Fat Emulsion Intravenous 1,512 ml @ 63 mls/hr TPN CONT IV Last administered on 05/15/19at 21:58; Start 05/15/19 at 22:00; Stop 05/16/19 at 21:59; Status DC Lidocaine HCl (Buffered Lidocaine 1%) 3 ml STK-MED ONCE .ROUTE ; Start 05/15/19 at 13:19; Stop 05/15/19 at 13:19; Status DC Midazolam HCl (Versed) 2 mg STK-MED ONCE .ROUTE ; Start 05/15/19 at 13:47; Stop 05/15/19 at 13:47; Status DC Fentanyl Citrate (Fentanyl 2ml Vial) 100 mcg STK-MED ONCE .ROUTE ; Start 05/15/19 at 13:47; Stop 05/15/19 at 13:47; Status DC Flumazenil (Romazicon) 0.5 mg STK-MED ONCE IV ; Start 05/15/19 at 13:47; Stop 05/15/19 at 13:47; Status DC Naloxone HCl (Narcan) 0.4 mg STK-MED ONCE .ROUTE ; Start 05/15/19 at 13:47; Stop 05/15/19 at 13:47; Status DC Lidocaine HCl (Buffered Lidocaine 1%) 4 ml 1X ONCE IJ Last administered on 05/15/19at 14:30; Start 05/15/19 at 14:30; Stop 05/15/19 at 14:38; Status DC Midazolam HCl (Versed) 1 mg 1X ONCE IV Last administered on 05/15/19at 14:30; Start 05/15/19 at 14:30; Stop 05/15/19 at 14:38; Status DC Fentanyl Citrate (Fentanyl 2ml Vial) 50 mcg 1X ONCE IV Last administered on 05/15/19at 14:30; Start 05/15/19 at 14:30; Stop 05/15/19 at 14:38; Status DC Insulin Human Lispro (HumaLOG) 0-9 UNITS TIDWMEALS SQ ; Start 05/16/19 at 17:00; Stop 05/16/19 at 13:29; Status DC Dextrose (Dextrose 50%-Water Syringe) 12.5 gm PRN Q15MIN PRN IV SEE COMMENTS; Start 05/16/19 at 13:15 Insulin Human Regular (HumuLIN R VIAL) 8 unit 1X ONCE IV Last administered on 05/16/19at 13:36; Start 05/16/19 at 13:15; Stop 05/16/19 at 13:22; Status DC Insulin Human Lispro (HumaLOG) 0-9 UNITS Q6HRS SQ Last administered on 05/19/19at 06:18; Start 05/16/19 at 18:00 Sodium Chloride 90 meq/Potassium Chloride 50 meq/ Potassium Phosphate 13.6 mmol/Magnesium Sulfate 10 meq/ Calcium Gluconate 10 meq/ Multivitamins 10 ml/Chromium/ Copper/Manganese/ Seleni/Zn 1 ml/ Total Parenteral Nutrition/Amino Acids/Dextrose/ Fat Emulsion Intravenous 1,512 ml @ 63 mls/hr TPN CONT IV Last administered on 05/16/19at 21:56; Start 05/16/19 at 22:00; Stop 05/17/19 at 21:59; Status DC Sodium Chloride 1,000 ml @ 75 mls/hr [id number] IV Last administered on 05/19/19at 04:50; Start 05/16/19 at 14:45 Insulin Glargine (Lantus Syringe) 22 unit QHS SQ Last administered on 05/17/19at 20:46; Start 05/17/19 at 08:30; Stop 05/18/19 at 07:49; Status DC Labetalol HCl (Normodyne Iv Push) 10 mg PRN Q2HR PRN IVP HYPERTENSION; Start 05/17/19 at 08:30 Insulin Glargine (Lantus Syringe) 10 unit 1X STAT SQ Last administered on 05/17/19at 09:13; Start 05/17/19 at 08:30; Stop 05/17/19 at 08:33; Status DC Pantoprazole Sodium (PROTONIX VIAL for IV PUSH) 40 mg DAILYAC IVP Last administered on 05/19/19at 07:07; Start 05/17/19 at 13:00 Sodium Chloride 60 meq/Potassium Chloride 30 meq/ Potassium Phosphate 13.6 mmol/Magnesium Sulfate 10 meq/ Calcium Gluconate 10 meq/ Multivitamins 10 ml/Chromium/ Copper/Manganese/ Seleni/Zn 1 ml/ Total Parenteral Nutrition/Amino Acids/Dextrose/ Fat Emulsion Intravenous 1,512 ml @ 63 mls/hr TPN CONT IV Last administered on 05/17/19at 23:13; Start 05/17/19 at 22:00; Stop 05/18/19 at 21:59; Status DC Haloperidol Lactate (Haldol Inj) 2 mg 1X ONCE IM ; Start 05/17/19 at 22:30; Stop 05/17/19 at 22:31; Status Cancel Haloperidol Lactate (Haldol Inj) 2 mg 1X ONCE IVP Last administered on 05/17/19at 23:01; Start 05/17/19 at 22:45; Stop 05/17/19 at 22:46; Status DC Lorazepam (Ativan Inj) 1 mg PRN Q6HRS PRN IVP ANXIETY / AGITATION Last administered on 05/18/19at 01:32; Start 05/18/19 at 01:30; Stop 05/18/19 at 07:48; Status DC Haloperidol Lactate (Haldol Inj) 5 mg 1X ONCE IVP Last administered on 07/18/18at 04:41; Start 05/18/19 at 04:30; Stop 05/18/19 at 04:31; Status DC Lorazepam (Ativan Inj) 1 mg 1X ONCE IVP Last administered on 05/18/19 05:02; Start 05/18/19 at 04:30; Stop 05/18/19 at 04:31; Status DC Lorazepam (Ativan Inj) 2 mg PRN Q4HRS PRN IVP ANXIETY / AGITATION Last administered on 05/19/19at 03:07; Start 05/18/19 at 07:45; Stop 05/19/19 at 07:55; Status DC Insulin Glargine (Lantus Syringe) 35 unit QHS SQ Last administered on 05/18/19at 23:19; Start 05/18/19 at 21:00 Insulin Glargine (Lantus Syringe) 10 unit ONCE STAT SQ Last administered on 05/18/19at 07:47; Start 05/18/19 at 07:47; Stop 05/18/19 at 07:51; Status DC Haloperidol Lactate (Haldol Inj) 5 mg PRN Q6HRS PRN IVP AGITATION 2nd choice Last administered on 05/19/19 07:07; Start 05/18/19 at 08:00; Stop 05/19/19 at 07:55; Status DC Meropenem 500 mg/ Sodium Chloride 50 ml @ 100 mls/hr Q6HRS IV Last adm inistered on 05/19/19at 05:46; Start 05/18/19 at 09:00 Bacitracin (Bacitracin Zinc Oint Pkt) 1 pkt DAILY TP Last administered on 05/19/19at 08:19; Start 05/18/19 at 10:15 Potassium Phosphate 13.6 mmol/Magnesium Sulfate 10 meq/ Calcium Gluconate 10 meq/ Multivitamins 10 ml/Chromium/ Copper/Manganese/ Seleni/Zn 1 ml/ Total Parenteral Nutrition/Amino Acids/Dextrose/ Fat Emulsion Intravenous 1,512 ml @ 63 mls/hr TPN CONT IV Last administered on 05/18/19at 22:35; Start 05/18/19 at 22:00; Stop 05/19/19 at 21:59 Hydromorphone HCl (Dilaudid) 1 mg PRN Q2HR PRN IV SEVERE PAIN 7-10 Last administered on 05/19/19at 07:07; Start 05/18/19 at 13:15; Stop 05/19/19 at 07:55; Status DC Lacosamide 100 mg/ Dextrose 60 ml @ 120 mls/hr BID IV Last administered on 05/19/19at 08:17; Start 05/18/19 at 15:00 Haloperidol Lactate (Haldol Inj) 2.5 mg PRN Q6HRS PRN IVP AGITATION 2nd choice; Start 05/19/19 at 08:00 Hydromorphone HCl (Dilaudid) 0.5 mg PRN Q2HR PRN IV SEVERE PAIN 7-10; Start 05/19/19 at 08:00 Lorazepam (Ativan Inj) 1 mg PRN Q4HRS PRN IVP ANXIETY / AGITATION; Start 05/19/19 at 08:00 Active Scripts Active Reported Venlafaxine Hcl Er (Venlafaxine Hcl) 75 Mg Cap.er.24h 75 Mg PO DAILY Simvastatin 10 Mg Tablet 10 Mg PO DAILY Metformin Hcl 1,000 Mg Tablet 1,000 Mg PO BIDWMEALS Meloxicam 15 Mg Tablet Unknown Dose PO DAILY Lisinopril 10 Mg Tablet Unknown Dose PO DAILY Humalog (Insulin Lispro) 100 Unit/1 Ml Cartridge 100 Unit SQ Sinemet 25-100 Mg Tablet (Carbidopa/Levodopa) 1 Each Tablet 1 Tab PO TID Vitals/I & O Vital Sign - Last 24 Hours 05/18/19 05/18/19 05/18/19 05/18/19 11:34 11:42 12:48 13:27 Temp 100.2 100.2 Pulse 108 Resp 22 B/P (MAP) 140/80 (100) Pulse Ox 96 96 96 O2 Delivery Nasal Cannula Nasal Cannula Nasal Cannula Nasal Cannula O2 Flow Rate 2.0 2.0 2.0 2.0 05/18/19 05/18/19 05/18/19 05/18/19 14:05 15:28 15:35 19:00 Temp 100.6 98.4 100.6 98.4 Pulse 97 97 Resp 22 20 B/P (MAP) 140/53 (82) 133/74 (93) Pulse Ox 96 96 96 O2 Delivery Nasal Cannula Nasal Cannula Nasal Cannula Nasal Cannula O2 Flow Rate 2.0 2.0 2.0 2.0 05/18/19 05/18/19 05/18/19 05/19/19 20:00 20:06 23:00 03:00 Temp 99.4 98.6 99.4 98.6 Pulse 83 91 Resp 20 20 B/P (MAP) 141/68 (92) 134/61 (85) Pulse Ox 95 94 O2 Delivery Nasal Cannula Nasal Cannula Nasal Cannula Nasal Cannula O2 Flow Rate 2.0 2.0 2.0 2.0 05/19/19 05/19/19 05/19/19 05/19/19 07:00 07:07 07:37 07:45 Temp 99.0 99.0 Pulse 94 Resp 20 20 20 B/P (MAP) 117/67 (84) Pulse Ox 97 O2 Delivery Nasal Cannula Nasal Cannula Nasal Cannula Nasal Cannula O2 Flow Rate 2.0 2.0 2.0 2.0 05/19/19 08:01 O2 Delivery Nasal Cannula O2 Flow Rate 2.0 Intake and Output 05/18/19 05/18/19 05/19/19 15:00 23:00 07:00 Intake Total 100 ml 1500 ml 110 ml Output Total 175 ml 1285 ml 490 ml Balance -75 ml 215 ml -380 ml HARITHA LARA MD May 19, 2019 10:57
[2019-05-19 11:00] VITALS: BP 175/73
--- NOTE | 2019-05-19 11:06 | PDOC ---
SUBJECTIVE ROS Asked to see for acute kidney injury Patient remains encephalopathic, confused and I'm unable to get much in terms of review of systems from him. He has just come off off one-to-one monitoring OBJECTIVE Vital Signs Vital Signs Date Time Temp Pulse Resp B/P (MAP) Pulse Ox O2 Delivery O2 Flow Rate FiO2 05/19/19 08:01 Nasal Cannula 2.0 05/19/19 07:37 20 05/19/19 07:00 99.0 94 117/67 (84) 97 99.0 I & 0 Intake and Output 05/19/19 07:00 Intake Total 1710 ml Output Total 1950 ml Balance -240 ml Intake Oral 0 ml IV Total 1710 ml Gastric Drainage Total 975 ml Drainage Total 975 ml # Voids 7 PHYSICAL EXAM Physical Exam GEN: Barely Awake, Oriented x 0, In no visible distress EYES: Sclera is anicteric Conjunctiva Normal EN: No EN Drainage, Mucous Membranes dry NECK: no JVD, no JVP, Supple, no Thyromegaly CVS: S1S2, possible Murmur, No Gallop, No Rub,no Edema RESP: no Rales, no Rhonchi,no Acc. Muscle Use GI: BS + ve, NO Bruit, Min Tender, Non Distended : no CVA tenderness, no Suprapubic Tenderness DIAGNOSIS/ASSESSMENT Assessment & Plan ARF: Outpatient baseline is not available. Current fluid and E-lyte status does not necessitate emergent need for dialysis. Chronic kidney disease stage III underlying with baseline creatinine of 1.5 given other foci of atherosclerotic vascular disease cannot be ruled out. Hyper natremia: Worse today. Will change TPN and IV fluids to PPN for now. Baseline by mouth intake is not known Severe hypoalbuminemia: Presumably associated with recent perforation of viscus and surgery. ANEMIA; may need blood transfusion hemoglobin drops below 7. Check iron profile Right renal calculus: Will require outpatient urology evaluation. No current urology coverage available at this hospital Discussed Plan of Care with patient at bedside and pharmacy regarding TPN COMMENT/RELEVANT DATA Meds Current Medications Medications (Trade) Dose Ordered Sig/[place] Start Time Stop Time Status Last Admin Dose Admin Acetaminophen (Tylenol) 500 mg PRN Q6HRS PRN 05/13/19 08:30 Albumin Human 500 ml @ 250 mls/hr 1X ONCE 05/09/19 00:30 05/09/19 02:29 DC 05/09/19 00:10 250 MLS/HR Albuterol/ Ipratropium (Duoneb) 3 ml RTQID 05/10/19 08:00 05/19/19 08:00 3 ML Amino Acids/ Glycerin/ Electrolytes 1,000 ml @ 80 mls/hr [id number] 05/11/19 12:00 05/15/19 21:59 DC 05/15/19 05:59 80 MLS/HR Bacitracin (Bacitracin Zinc Oint Pkt) 1 pkt DAILY 05/18/19 10:15 05/19/19 08:19 1 PKT Budesonide (Pulmicort) 0.5 mg RTBID 05/10/19 08:00 05/19/19 08:00 0.5 MG Bupivacaine HCl (Sensorcaine Mpf 0.5%) 30 ml STK-MED ONCE 05/08/19 21:39 05/08/19 21:39 DC Bupivacaine HCl/ Epinephrine Bitart (Sensorcaine-Epi 0.25%-1:315170 Mpf) 30 ml 1X ONCE 05/08/19 20:00 05/08/19 20:01 DC 05/08/19 20:32 26 ML Carbidopa/Levodopa (Sinemet 25/100) 1 tab TID 05/12/19 14:00 05/12/19 13:40 DC Cefepime HCl (Maxipime) 2 gm Q8HRS 05/14/19 12:00 05/18/19 08:18 DC 05/18/19 06:25 2 GM Clonidine HCl (Catapres) 0.1 mg PRN Q1HR PRN 05/13/19 08:30 Daptomycin 570 mg/ Sodium Chloride 50 ml @ 100 mls/hr Q24H 05/14/19 11:30 05/18/19 12:48 100 MLS/HR Dexamethasone Sodium Phosphate (Decadron) 4 mg STK-MED ONCE 05/08/19 19:34 05/08/19 19:34 DC Dextrose (Dextrose 50%-Water Syringe) 12.5 gm PRN Q15MIN PRN 05/16/19 13:15 Dextrose/Sodium Chloride 1,000 ml @ 150 mls/hr Q6H40M 05/09/19 08:45 05/09/19 18:30 DC 05/09/19 12:28 150 MLS/HR Diphenhydramine HCl (Benadryl) 25 mg 1X ONCE 05/08/19 17:00 05/08/19 17:01 DC 05/08/19 16:51 25 MG Dobutamine HCl/ Dextrose 250 ml @ 15.75 mls/ hr CONT PRN 05/09/19 12:45 05/12/19 13:06 DC Ephedrine Sulfate (ePHEDrine PF IN SALINE SYRINGE) 50 mg STK-MED ONCE 05/08/19 20:36 05/08/19 20:36 DC Epinephrine HCl (Adrenalin) 1 mg STK-MED ONCE 05/08/19 21:39 05/08/19 21:39 DC Fentanyl Citrate (Fentanyl 2ml Vial) 50 mcg 1X ONCE 05/15/19 14:30 05/15/19 14:38 DC 05/15/19 14:30 50 MCG Fluconazole/ Sodium Chloride 100 ml @ 100 mls/hr Q24H 05/08/19 22:00 05/14/19 10:28 DC 05/13/19 21:14 100 MLS/HR Flumazenil (Romazicon) 0.5 mg STK-MED ONCE 05/15/19 13:47 05/15/19 13:47 DC Gabapentin (Neurontin) 300 mg PRN QHS PRN 05/12/19 17:45 05/12/19 20:53 300 MG Glycopyrrolate (Robinul) 1 mg STK-MED ONCE 05/08/19 21:27 05/08/19 21:27 DC Haloperidol Lactate (Haldol Inj) 2.5 mg PRN Q6HRS PRN 05/19/19 08:00 Heparin Sodium (Porcine) (Heparin Sodium) 5,000 unit BID 05/11/19 10:00 05/19/19 08:22 5,000 UNIT Hydralazine HCl (Apresoline Inj) 10 mg PRN Q4HRS PRN 05/11/19 11:45 Hydromorphone HCl (Dilaudid) 0.5 mg PRN Q2HR PRN 05/19/19 08:00 Info (CONTRAST GIVEN -- Rx MONITORING) 1 each PRN DAILY PRN 05/14/19 09:00 05/16/19 08:59 DC Info (Tpn Per Pharmacy) 1 each PRN DAILY PRN 05/14/19 16:00 05/18/19 11:41 1 EACH Insulin Glargine (Lantus Syringe) 10 unit ONCE STAT 05/18/19 07:47 05/18/19 07:51 DC 05/18/19 07:47 10 UNIT Insulin Human Lispro (HumaLOG VIAL for OP,RR ONLY) 0-10 units PRN Q1HR PRN 05/08/19 19:45 05/08/19 23:59 DC Insulin Human Lispro (HumaLOG) 0-9 UNITS Q6HRS 05/16/19 18:00 05/19/19 06:18 5 UNITS Insulin Human Regular (HumuLIN R VIAL) 8 unit 1X ONCE 05/16/19 13:15 05/16/19 13:22 DC 05/16/19 13:36 8 UNIT Insulin Human Regular 150 unit/ Sodium Chloride 151.5 ml @ 0 mls/hr CONT PRN 05/08/19 23:00 05/12/19 13:06 DC 05/08/19 23:03 5 MLS/HR Iohexol (Omnipaque 240 Mg/ml) 30 ml 1X ONCE 05/14/19 08:45 05/14/19 08:48 DC 05/14/19 08:45 30 ML Iohexol (Omnipaque 300 Mg/ml) 60 ml 1X ONCE 05/14/19 08:45 05/14/19 08:48 DC 05/14/19 08:45 60 ML Iohexol (Omnipaque 350 Mg/ml) 90 ml 1X ONCE 05/08/19 17:30 05/08/19 17:31 DC 05/08/19 17:45 90 ML Ketamine HCl (Ketamine) 50 mg STK-MED ONCE 05/08/19 20:12 05/08/19 20:12 DC Labetalol HCl (Normodyne Iv Push) 10 mg PRN Q2HR PRN 05/17/19 08:30 Lacosamide 100 mg/ Dextrose 60 ml @ 120 mls/hr BID 05/18/19 15:00 05/19/19 08:17 120 MLS/HR Lactobacillus Rhamnosus (Culturelle) 1 cap BID 05/12/19 21:00 05/14/19 21:08 1 CAP Lidocaine HCl (Buffered Lidocaine 1%) 4 ml 1X ONCE 05/15/19 14:30 05/15/19 14:38 DC 05/15/19 14:30 4 ML Lidocaine HCl (Lidocaine Pf 2% Vial) 5 ml STK-MED ONCE 05/08/19 19:34 05/08/19 19:34 DC Lisinopril (Prinivil) 10 mg DAILY 05/13/19 09:00 05/16/19 10:07 DC 05/14/19 09:14 10 MG Lorazepam (Ativan Inj) 1 mg PRN Q4HRS PRN 05/19/19 08:00 Meropenem 500 mg/ Sodium Chloride 50 ml @ 100 mls/hr Q6HRS 05/18/19 09:00 05/19/19 05:46 100 MLS/HR Metoclopramide HCl (Reglan Vial) 10 mg 1X ONCE 05/08/19 17:00 05/08/19 17:01 DC 05/08/19 16:51 10 MG Metronidazole 100 ml @ 100 mls/hr Q8HRS 05/14/19 14:00 05/18/19 08:18 DC 05/18/19 06:28 100 MLS/HR Micafungin Sodium 100 mg/Dextrose 100 ml @ 100 mls/hr Q24H 05/14/19 11:00 05/18/19 11:45 100 MLS/HR Midazolam HCl (Versed) 1 mg 1X ONCE 05/15/19 14:30 05/15/19 14:38 DC 05/15/19 14:30 1 MG Multi-Ingredient Ointment (Analgesic [place]) 1 jazlyn PRN QID PRN 05/11/19 11:30 Naloxone HCl (Narcan) 0.4 mg STK-MED ONCE 05/15/19 13:47 05/15/19 13:47 DC Neostigmine Methylsulfate (Neostigmine Methylsulfate) 5 mg STK-MED ONCE 05/08/19 21:27 05/08/19 21:27 DC Norepinephrine Bitartrate 250 ml @ 19.688 mls/ hr CONT PRN 05/09/19 12:45 Cancel Ondansetron HCl (Zofran) 4 mg PRN Q6HRS PRN 05/13/19 08:30 UNV Pantoprazole Sodium (PROTONIX VIAL for IV PUSH) 40 mg DAILYAC 05/17/19 13:00 05/19/19 07:07 40 MG Pantoprazole Sodium (Protonix) 40 mg DAILYAC 05/12/19 09:00 05/17/19 11:29 DC 05/14/19 06:04 40 MG Phenol (Chloraseptic) 1 spray PRN Q2HR PRN 05/11/19 11:30 05/11/19 13:12 1 SPRAY Phenylephrine HCl (PHENYLEPHRINE in 0.9% NACL PF) 1 mg STK-MED ONCE 05/08/19 20:33 05/08/19 20:33 DC Piperacillin Sod/ Tazobactam Sod 3.375 gm/Sodium Chloride 50 ml @ 100 mls/hr Q6HRS 05/09/19 00:00 05/14/19 10:28 DC 05/14/19 05:49 100 MLS/HR Potassium Phosphate 13.6 mmol/Magnesium Sulfate 10 meq/ Calcium Gluconate 10 meq/ Multivitamins 10 ml/Chromium/ Copper/Manganese/ Seleni/Zn 1 ml/ Total Parenteral Nutrition/Amino Acids/Dextrose/ Fat Emulsion Intravenous 1,512 ml @ 63 mls/hr TPN CONT 05/18/19 22:00 05/19/19 21:59 05/18/19 22:35 63 MLS/HR Primidone (Mysoline) 25 mg BID 05/12/19 14:30 05/14/19 21:08 25 MG Prochlorperazine Edisylate (Compazine) 5 mg PACU PRN PRN 05/08/19 19:45 05/08/19 23:59 DC Propofol 20 ml @ As Directed STK-MED ONCE 05/08/19 19:34 05/08/19 19:34 DC Ringer's Solution 1,000 ml @ 30 mls/hr Q24H 05/08/19 20:00 05/09/19 01:00 DC 05/08/19 23:06 30 MLS/HR Rocuronium [place] (Zemuron) 50 mg STK-MED ONCE 05/08/19 19:34 05/08/19 19:34 DC Sevoflurane (Ultane) 60 ml STK-MED ONCE 05/08/19 21:44 05/08/19 21:44 DC Simvastatin (Zocor) 10 mg QHS 05/12/19 21:00 05/14/19 21:08 10 MG Sodium Chloride 60 meq/Potassium Chloride 30 meq/ Potassium Phosphate 13.6 mmol/Magnesium Sulfate 10 meq/ Calcium Gluconate 10 meq/ Multivitamins 10 ml/Chromium/ Copper/Manganese/ Seleni/Zn 1 ml/ Total Parenteral Nutrition/Amino Acids/Dextrose/ Fat Emulsion Intravenous 1,512 ml @ 63 mls/hr TPN CONT 05/17/19 22:00 05/18/19 21:59 DC 05/17/19 23:13 63 MLS/HR Sodium Chloride 90 meq/Potassium Chloride 50 meq/ Potassium Phosphate 13.6 mmol/Magnesium Sulfate 10 meq/ Calcium Gluconate 10 meq/ Multivitamins 10 ml/Chromium/ Copper/Manganese/ Seleni/Zn 1 ml/ Total Parenteral Nutrition/Amino Acids/Dextrose/ Fat Emulsion Intravenous 1,512 ml @ 63 mls/hr TPN CONT 05/16/19 22:00 05/17/19 21:59 DC 05/16/19 21:56 63 MLS/HR Succinylcholine Chloride (Anectine) 200 mg STK-MED ONCE 05/08/19 19:34 05/08/19 19:34 DC Tramadol HCl (Ultram) 50 mg PRN Q6HRS PRN 05/13/19 08:30 05/14/19 04:27 50 MG Venlafaxine HCl (Effexor Xr) 37.5 mg BID 05/13/19 09:00 05/13/19 08:33 DC Venlafaxine HCl (Effexor) 75 mg DAILY 05/12/19 13:30 05/12/19 14:20 DC 05/12/19 13:34 75 MG Lab Laboratory Tests Test 05/18/19 12:37 05/18/19 17:00 05/18/19 17:41 05/18/19 23:14 Glucose (Fingerstick) 244 mg/dL (70-99) 185 mg/dL (70-99) 290 mg/dL (70-99) Ionized Calcium 1.26 mmol/L (1.13-1.32) Creatine Kinase 189 U/L (39-308) Vitamin B12 Level 1462 pg/mL (247-911) Thyroid Stimulating Hormone (TSH) 3.714 uIU/mL (0.358-3.74) Test 05/19/19 04:20 05/19/19 05:50 05/19/19 06:14 White Blood Count 12.0 x10^3/uL (4.0-11.0) Red Blood Count 2.40 x10^6/uL (4.30-5.70) Hemoglobin 7.8 g/dL (13.0-17.5) Hematocrit 24.7 % (39.0-53.0) Mean Corpuscular Volume 103 fL (79-100) Mean Corpuscular Hemoglobin 32 pg (25-35) Mean Corpuscular Hemoglobin Concent 32 g/dL (31-37) Red Cell Distribution Width 16.5 % (11.5-14.5) Platelet Count 403 x10^3/uL (140-400) Neutrophils (%) (Auto) 76 % (31-73) Lymphocytes (%) (Auto) 12 % (24-48) Monocytes (%) (Auto) 11 % (0-9) Eosinophils (%) (Auto) 1 % (0-3) Basophils (%) (Auto) 1 % (0-3) Neutrophils # (Auto) 9.1 x10^3/uL (1.8-7.7) Lymphocytes # (Auto) 1.4 x10^3/uL (1.0-4.8) Monocytes # (Auto) 1.3 x10^3/uL (0.0-1.1) Eosinophils # (Auto) 0.2 x10^3/uL (0.0-0.7) Basophils # (Auto) 0.1 x10^3/uL (0.0-0.2) Sodium Level 150 mmol/L (136-145) Potassium Level 4.9 mmol/L (3.5-5.1) Chloride Level 117 mmol/L (98-107) Carbon Dioxide Level 21 mmol/L (21-32) Anion Gap 12 (6-14) Blood Urea Nitrogen 33 mg/dL (8-26) Creatinine 1.5 mg/dL (0.7-1.3) Estimated GFR (Cockcroft-Gault) 45.9 BUN/Creatinine Ratio 22 (6-20) Glucose Level 232 mg/dL (70-99) Calcium Level 8.8 mg/dL (8.5-10.1) Phosphorus Level 3.4 mg/dL (2.6-4.7) Magnesium Level 1.9 mg/dL (1.8-2.4) Total Bilirubin 0.4 mg/dL (0.2-1.0) Aspartate Amino Transf (AST/SGOT) 23 U/L (15-37) Alanine Aminotransferase (ALT/SGPT) 25 U/L (16-63) Alkaline Phosphatase 92 U/L (46-116) Total Protein 6.2 g/dL (6.4-8.2) Albumin 2.0 g/dL (3.4-5.0) Albumin/Globulin Ratio 0.5 (1.0-1.7) Glucose (Fingerstick) 232 mg/dL (70-99) Results All relevant outside records, renal labs, imaging studies, telemetry/EKG's were reviewed. Other CT scan of the head IMPRESSION: 1. No acute intracranial findings. 2. 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 AP abdomen x-ray HISTORY: Bowel perforation. FINDINGS: There is a right abdominal pigtail drainage catheter. There is mild volume of gas in the stomach and large and small bowel is also mild volume of stool within the right-sided colon. No dilated bowel loops. Right renal 6 mm calculus. Lumbar arthrosis and disc disease changes. Nasogastric tube tip left upper quadrant region of the upper stomach. Left flank outside the [id number]. IMPRESSION: Gas within the large and small bowel. No evidence of bowel obstruction. Mild volume of stool within the right-sided colon. Pigtail drainage catheter is noted. Right renal calculus again noted. CHAS BASURTO MD May 19, 2019 11:06
--- NOTE | 2019-05-19 11:23 | NUR ---
SW following. Chart reviewed, discussed with RN. Pt has been accepted at [facility]. Per RN, pt is not ready to go today. Is on a 1:1. Having CT scan again today. SW to fax updates to [facility]. SW will continue to follow.
[2019-05-19] MEDS: MICAFUNGIN 100 MG in IV DEXTROSE 5% 100ML 100 ML IV SCH (11:32)
[2019-05-19] MEDS: DAPTOmycin (GENERIC) IVPB 570 MG in IV NORMAL SALINE 50ML 50 ML IV SCH (13:21)
[2019-05-19 15:00] VITALS: BP 112/42
--- NOTE | 2019-05-19 15:53 | PDOC ---
PROGRESS NOTES Assessment Assessment Abnormal jerking like movements. Metabolic encephalopathy. ET. Agitation. Delirium. Bowel perforation s/p surgery. Fever. Hyperglycemia. DM. Renal failre. Anemia. HTN. HLD. COPD. Obesity. RECOMMENDATIONS/PLAN: Vimpat 100 mg q12h. Treat medical and surgical diseases. Discussed with his at bedside on 05/18/19 and 05/19/19. HCT: No acute findings. EEG pending. History of Present Illness This is a 73-year-old white male patient was came to the ER of [facility] on 05/08/19 with complaints of severe abdominal pain, nausea, vomiting. He had a right shoulder surgery 2 days prior and has been on nonsteroidal anti-inflammatories for quite some time. Abdomen CT scan shows free air in the right upper quadrant with some perihepatic ascites. Neurology was request for a consultation on 05/18/19 due to abnormal movements, mental status changes, and confusion. Past Medical History Cardiovascular: HTN Pulmonary: No pertinent hx GI: Gastritis, Peptic Ulcer disease Heme/Onc: No pertinent hx Hepatobiliary: No pertinent hx Psych: No pertinent hx Musculoskeletal: Other (shoulder pain) Rheumatologic: No pertinent hx Infectious disease: No pertinent hx ENT: No pertinent hx Renal/: Chronic renal insuff Endocrine: Diabetes Dermatology: No pertinent hx Past Surgical History Right shoulder surgery postop 2 days to this admission. Family History No Significant Social History ALCOHOL: rare Drugs: None Lives: with Family Allergies Coded Allergies: sulfamethoxazole (Verified Allergy, Severe, Altered Mental Status , 05/08/19) trimethoprim (Verified Allergy, Severe, Altered Mental Status , 05/08/19) Sulfa (Sulfonamide Antibiotics) (Verified Allergy, Intermediate, 02/18/19) ciprofloxacin (Verified Allergy, Unknown, rash, 05/08/19) codeine (Verified Allergy, Unknown, Rash, 05/08/19) MEDICATIONS: Refer to [facility] REVIEW OF SYSTEMS: Constitutional: Obesity. Head: No traumatic brain or head injury. Skin: No edema, or rash. Ear: No infection. Eyes: No vision loss or color blindness. Nose: No bleeding or purulent discharges. Hearing: Hearing decrease. Neck: No injury. Cardiac: HTN, HLD. Pulmonary: COPD. GI: Abdomen pain. Urinary/genital: UTI. Endocrinologic: Diabetes Mellitus, obesity. Skeletomuscular: Tremors. Neurological: see HP. Psychiatric: Denies drug use/abuse. Otherwise, not [id number] review of systems. PHYSICAL EXAMINATION: General appearance is in subacute distress. HEENT: Normocephalic and nontraumatic. Eyes, nose, ears, and throat are unremarkable. Neck is supple. No lymphadenopathy. No crepitus. Cardiovascular: S1, S2. Pulmonary: decreased to auscultation bilaterally. Abdomen: Bowel sounds are positive? Extremities: No rash, lesions, or edema. No restriction of range of motion NEUROLOGICAL EXAMINATION: Lethargic. Abnormal noted. Not oriented to time, place and person. PERRL. EOMI. CN: no focal findings. Muscle tone: Fluctuated. Muscle strength: Moves all extremities. DTR: 1+ Plantar reflex: Neutral response bilaterally Gait: not examined in bed. Sensory exam: Withdrew to stimuli.. Not able to access cerebellar signs. F-T-N test not performed due to not follow commands. Objective Objective Vital Signs Date Time Temp Pulse Resp B/P (MAP) Pulse Ox O2 Delivery O2 Flow Rate FiO2 05/19/19 11:03 100 Nasal Cannula 2.0 05/19/19 11:00 97.7 101 18 175/73 (107) 97.7 Intake and Output 05/19/19 07:00 Intake Total 1710 ml Output Total 1950 ml Balance -240 ml Intake Oral 0 ml IV Total 1710 ml Gastric Drainage Total 975 ml Drainage Total 975 ml # Voids 7 Vitals Signs Vitals VS - Last 72 Hours, by Label Date Time Temp Pulse Resp B/P (MAP) Pulse Ox O2 Delivery O2 Flow Rate FiO2 05/19/19 11:03 100 Nasal Cannula 2.0 05/19/19 11:00 97.7 101 18 175/73 (107) Room Air 97.7 05/19/19 08:01 Nasal Cannula 2.0 05/19/19 07:45 Nasal Cannula 2.0 05/19/19 07:37 20 Nasal Cannula 2.0 05/19/19 07:07 20 Nasal Cannula 2.0 05/19/19 07:00 99.0 94 20 117/67 (84) 97 Nasal Cannula 2.0 99.0 05/19/19 03:00 98.6 91 20 134/61 (85) 94 Nasal Cannula 2.0 98.6 05/18/19 23:00 99.4 83 20 141/68 (92) 95 Nasal Cannula 2.0 99.4 05/18/19 20:06 Nasal Cannula 2.0 05/18/19 20:00 Nasal Cannula 2.0 05/18/19 19:00 98.4 97 20 133/74 (93) 96 Nasal Cannula 2.0 98.4 05/18/19 15:35 100.6 97 22 140/53 (82) 96 Nasal Cannula 2.0 100.6 05/18/19 15:28 Nasal Cannula 2.0 05/18/19 14:05 96 Nasal Cannula 2.0 05/18/19 13:27 96 Nasal Cannula 2.0 05/18/19 12:48 96 Nasal Cannula 2.0 05/18/19 11:42 100.2 108 22 140/80 (100) 96 Nasal Cannula 2.0 100.2 05/18/19 11:34 Nasal Cannula 2.0 05/18/19 10:14 94 Room Air 2.0 05/18/19 08:00 Nasal Cannula 2.0 05/18/19 07:30 100.0 116 22 147/54 (85) 94 Nasal Cannula 2.0 100.0 Laboratory Laboratory Laboratory Tests Test 05/18/19 17:00 05/18/19 17:41 05/18/19 23:14 05/19/19 04:20 Ionized Calcium 1.26 mmol/L (1.13-1.32) Creatine Kinase 189 U/L (39-308) Vitamin B12 Level 1462 pg/mL (247-911) Thyroid Stimulating Hormone (TSH) 3.714 uIU/mL (0.358-3.74) Glucose (Fingerstick) 185 mg/dL (70-99) 290 mg/dL (70-99) White Blood Count 12.0 x10^3/uL (4.0-11.0) Red Blood Count 2.40 x10^6/uL (4.30-5.70) Hemoglobin 7.8 g/dL (13.0-17.5) Hematocrit 24.7 % (39.0-53.0) Mean Corpuscular Volume 103 fL (79-100) Mean Corpuscular Hemoglobin 32 pg (25-35) Mean Corpuscular Hemoglobin Concent 32 g/dL (31-37) Red Cell Distribution Width 16.5 % (11.5-14.5) Platelet Count 403 x10^3/uL (140-400) Neutrophils (%) (Auto) 76 % (31-73) Lymphocytes (%) (Auto) 12 % (24-48) Monocytes (%) (Auto) 11 % (0-9) Eosinophils (%) (Auto) 1 % (0-3) Basophils (%) (Auto) 1 % (0-3) Neutrophils # (Auto) 9.1 x10^3/uL (1.8-7.7) Lymphocytes # (Auto) 1.4 x10^3/uL (1.0-4.8) Monocytes # (Auto) 1.3 x10^3/uL (0.0-1.1) Eosinophils # (Auto) 0.2 x10^3/uL (0.0-0.7) Basophils # (Auto) 0.1 x10^3/uL (0.0-0.2) Test 05/19/19 05:50 05/19/19 06:14 05/19/19 12:46 Sodium Level 150 mmol/L (136-145) Potassium Level 4.9 mmol/L (3.5-5.1) Chloride Level 117 mmol/L (98-107) Carbon Dioxide Level 21 mmol/L (21-32) Anion Gap 12 (6-14) Blood Urea Nitrogen 33 mg/dL (8-26) Creatinine 1.5 mg/dL (0.7-1.3) Estimated GFR (Cockcroft-Gault) 45.9 BUN/Creatinine Ratio 22 (6-20) Glucose Level 232 mg/dL (70-99) Calcium Level 8.8 mg/dL (8.5-10.1) Phosphorus Level 3.4 mg/dL (2.6-4.7) Magnesium Level 1.9 mg/dL (1.8-2.4) Iron Level 27 ug/dL (65-175) Total Iron Binding Capacity 172 ug/dL (250-450) Iron Saturation 16 % (15-34) Ferritin 635 ng/mL (26-388) Total Bilirubin 0.4 mg/dL (0.2-1.0) Aspartate Amino Transf (AST/SGOT) 23 U/L (15-37) Alanine Aminotransferase (ALT/SGPT) 25 U/L (16-63) Alkaline Phosphatase 92 U/L (46-116) Total Protein 6.2 g/dL (6.4-8.2) Albumin 2.0 g/dL (3.4-5.0) Albumin/Globulin Ratio 0.5 (1.0-1.7) Glucose (Fingerstick) 232 mg/dL (70-99) 255 mg/dL (70-99) Microbiology 05/15/19 AFB Specimen Processing Tissue - Final, Resulted 05/15/19 Acid Fast Bacilli Culture, Resulted Pending 05/15/19 Gram Stain - Final, Resulted 05/15/19 Fungal Culture, Resulted Pending 05/15/19 Fungal Culture Result 1, Resulted Pending Medication Medications Current Medications Amino Acids/ Glycerin/ Electrolytes 1,000 ml @ 80 mls/hr [id number] IV ; Start 05/19/19 at 13:00 Haloperidol Lactate (Haldol Inj) 2.5 mg PRN Q6HRS PRN IVP AGITATION 2nd choice; Start 05/19/19 at 08:00 Hydromorphone HCl (Dilaudid) 0.5 mg PRN Q2HR PRN IV SEVERE PAIN 7-10; Start 05/19/19 at 08:00 Insulin Glargine (Lantus Syringe) 35 unit QHS SQ Last administered on 05/18/19at 23:19; Start 05/18/19 at 21:00 Lorazepam (Ativan Inj) 1 mg PRN Q4HRS PRN IVP ANXIETY / AGITATION Last administered on 05/19/19at 12:38; Start 05/19/19 at 08:00 Potassium Phosphate 13.6 mmol/Magnesium Sulfate 10 meq/ Calcium Gluconate 10 meq/ Multivitamins 10 ml/Chromium/ Copper/Manganese/ Seleni/Zn 1 ml/ Total Parenteral Nutrition/Amino Acids/Dextrose/ Fat Emulsion Intravenous 1,512 ml @ 63 mls/hr TPN CONT IV Last administered on 05/18/19at 22:35; Start 05/18/19 at 22:00; Stop 05/19/19 at 13:00; Status DC Comment Review of Relevant I have reviewed the following items adriano (where applicable) has been applied. PATRICE LOVE MD May 19, 2019 15:53
[2019-05-19] MEDS: AMINO AC 3%/ELECTROLYTE/GLYCER 1,000 ML IV SCH (16:15)
[2019-05-19 16:46] LABS: BASE EXCESS ABG -7 mmol/L (-3-3); HCO3 ABG 17 mmol/L (21-28); PCO2 ABG 27 mmHg (35-46); PO2 ABG 75 mmHg (65-108); SAT O2 ABG 94 % (92-99)
[2019-05-19 16:47] LABS: FIO2 ABG 28%
[2019-05-19] MEDS: IV 1/2 NORMAL SALINE 1,000 ML IV SCH (17:12)
[2019-05-19 19:00] VITALS: BP 151/71
[2019-05-19] MEDS: SIMVASTATIN 10 MG TABLET PO SCH (20:24)
[2019-05-19] MEDS: INSULIN GLARGINE SYRINGE. SQ SCH (21:00)
[2019-05-19 22:59] VITALS: BP 149/66
[2019-05-20] MEDS: HALOPERIDOL LACTATE 5 MG/ML VIAL. IVP PRN ×2 (01:51→23:24)
[2019-05-20] MEDS: AMINO AC 3%/ELECTROLYTE/GLYCER 1,000 ML IV SCH ×2 (01:52→15:42)
[2019-05-20 03:00] VITALS: BP 108/40
[2019-05-20] MEDS: MEROPENEM 500 MG in IV NORMAL SALINE 50ML 50 ML IV SCH ×5 (04:14→23:27)
[2019-05-20] MEDS: PANTOPRAZOLE IV PUSH 40 MG VIAL. IVP SCH (05:11)
[2019-05-20] MEDS: IV 1/2 NORMAL SALINE 1,000 ML IV SCH (05:13)
[2019-05-20 05:17] LABS: BASO # 0.1 x10^3/uL (0.0-0.2); BASO % 1 % (0-3); EOS # 0.3 x10^3/uL (0.0-0.7); EOS % 3 % (0-3); HEMATOCRIT 24.9 % (39.0-53.0); HEMOGLOBIN 8.3 g/dL (13.0-17.5); LYMPH # 1.3 x10^3/uL (1.0-4.8); LYMPH % 12 % (24-48); MEAN CORPUSCULAR HEMOGLOBIN 32 pg (25-35); MEAN CORPUSCULAR HGB CONC 33 g/dL (31-37); MEAN CORPUSCULAR VOLUME 96 fL (79-100); MONO % 10 % (0-9); NEUT # 7.7 x10^3/uL (1.8-7.7); NEUT % 75 % (31-73); PLATELET COUNT 433 x10^3/uL (140-400); RED BLOOD COUNT 2.61 x10^6/uL (4.30-5.70); RED CELL DISTRIBUTION WIDTH 14.5 % (11.5-14.5); WHITE BLOOD COUNT 10.3 x10^3/uL (4.0-11.0)
[2019-05-20 05:42] LABS: CALCIUM 9.1 mg/dL (8.5-10.1); CREATININE 1.4 mg/dL (0.7-1.3); GFR 49.7; POTASSIUM 4.6 mmol/L (3.5-5.1)
[2019-05-20] MEDS: INSULIN LISPRO 300 UNITS/3 ML VIAL. SQ SCH ×4 (06:00→23:31)
[2019-05-20 07:00] VITALS: BP 146/68
[2019-05-20] MEDS: BUDESONIDE 0.5 MG/2 ML NEBU. NEB SCH ×2 (07:15→19:36)
[2019-05-20] MEDS: IPRATRPIUM/ALBUTEROL 0.5/2.5MG 3 ML NEBU. NEB SCH ×4 (07:15→19:35)
--- NOTE | 2019-05-20 08:06 | PDOC ---
Infectious Disease Note Subjective Subjective S/p Haldol. awake ROS ROS no n/v/d/sob Vital Sign Vital Signs Vital Signs Date Time Temp Pulse Resp B/P (MAP) Pulse Ox O2 Delivery O2 Flow Rate FiO2 05/20/19 07:15 95 Nasal Cannula 2.0 05/20/19 03:00 99.5 70 22 108/40 (62) 99.5 Physical Exam PHYSICAL EXAM GENERAL: Laying in bed, NAD - HEENT: Pupils equally round. Oropharynx is clear. NGT NECK: Supple. LUNGS: Clear to auscultation. HEART: S1, S2 regular. ABDOMEN: Obese, soft, less distension. NT with hypoactive bowel sounds. Surgical dressings are dry and MACKENZIE drain intact- with continued bilious drainage. New MACKENZIE with serous fluid EXTREMITIES: No gross edema or cyanosis.. Right shoulder incision well-approx stable, clean. SKIN: Warm to touch. No signs of rash. NEUROLOGIC: sleepy, no focal deficit LUE - clean Labs Lab Laboratory Tests Test 05/19/19 12:46 05/19/19 16:30 05/19/19 17:17 05/19/19 21:39 Glucose (Fingerstick) 255 mg/dL (70-99) 159 mg/dL (70-99) 199 mg/dL (70-99) O2 Saturation 94 % (92-99) Arterial Blood pH 7.40 (7.35-7.45) Arterial Blood pCO2 at Patient Temp 27 mmHg (35-46) Arterial Blood pO2 at Patient Temp 75 mmHg (65-108) Arterial Blood HCO3 17 mmol/L (21-28) Arterial Blood Base Excess -7 mmol/L (-3-3) FiO2 28% Test 05/20/19 05:05 05/20/19 05:58 White Blood Count 10.3 x10^3/uL (4.0-11.0) Red Blood Count 2.61 x10^6/uL (4.30-5.70) Hemoglobin 8.3 g/dL (13.0-17.5) Hematocrit 24.9 % (39.0-53.0) Mean Corpuscular Volume 96 fL (79-100) Mean Corpuscular Hemoglobin 32 pg (25-35) Mean Corpuscular Hemoglobin Concent 33 g/dL (31-37) Red Cell Distribution Width 14.5 % (11.5-14.5) Platelet Count 433 x10^3/uL (140-400) Neutrophils (%) (Auto) 75 % (31-73) Lymphocytes (%) (Auto) 12 % (24-48) Monocytes (%) (Auto) 10 % (0-9) Eosinophils (%) (Auto) 3 % (0-3) Basophils (%) (Auto) 1 % (0-3) Neutrophils # (Auto) 7.7 x10^3/uL (1.8-7.7) Lymphocytes # (Auto) 1.3 x10^3/uL (1.0-4.8) Monocytes # (Auto) 1.0 x10^3/uL (0.0-1.1) Eosinophils # (Auto) 0.3 x10^3/uL (0.0-0.7) Basophils # (Auto) 0.1 x10^3/uL (0.0-0.2) Sodium Level 148 mmol/L (136-145) Potassium Level 4.6 mmol/L (3.5-5.1) Chloride Level 114 mmol/L (98-107) Carbon Dioxide Level 22 mmol/L (21-32) Anion Gap 12 (6-14) Blood Urea Nitrogen 29 mg/dL (8-26) Creatinine 1.4 mg/dL (0.7-1.3) Estimated GFR (Cockcroft-Gault) 49.7 Glucose Level 198 mg/dL (70-99) Calcium Level 9.1 mg/dL (8.5-10.1) Glucose (Fingerstick) 192 mg/dL (70-99) Micro Microbiology 05/15/19 AFB Specimen Processing Tissue - Final, Resulted 05/15/19 Acid Fast Bacilli Culture, Resulted Pending 05/15/19 Gram Stain - Final, Resulted 05/15/19 Fungal Culture, Resulted Pending 05/15/19 Fungal Culture Result 1, Resulted Pending Objective Assessment Acute Encephalopathy - Perforated duodenal ulcer s/p repair, 05/08 no apparent cultures, repair failur e S/p Abd drain placed 05/15 sce to fluid collection Fever - times one post procedure 05/15 - improved now Leukocytosis - better today- initial Pancytopenia ? in part reactive Abx allergy: Sulfa and cipro w/ rash Acute respiratory failure, now on venti mask -s/p Bronchoscopy with BAL, 05/09. mucous plugging, culture pending GREGG -mild increase Nonobstructing calculus of the right kidney. Recent right shoulder joint replacement, 05/06 at [facility] Plan of Care hydration d/c dapto, and micafungin cont meropenem f/u cultures/labs in am ct head neg d/w surgery D/w nursing d/w SULEMAN BASURTO MD May 20, 2019 08:06
[2019-05-20] MEDS: BACITRACIN TOPICAL OINT PACKET. TP SCH (08:35)
[2019-05-20] MEDS: PRIMIDONE 50 MG TABLET PO SCH ×2 (08:35→20:20)
[2019-05-20] MEDS: LACTOBACILLUS RHAMNOSUS GG 1 CAPSULE. PO SCH ×2 (08:35→20:19)
[2019-05-20] MEDS: VENLAFAXINE XR 37.5 MG CAP.ER.24H. PO SCH (08:35)
[2019-05-20] MEDS: LACOSAMIDE 100 MG in IV DEXTROSE 5% 50 ML IV SCH ×2 (08:36→21:20)
[2019-05-20] MEDS: HEPARIN for SUB-Q USE 5,000 UNIT/ML VIAL. SQ SCH ×2 (08:46→21:28)
[2019-05-20] MEDS: HYDROmorphone 2 MG/ML VIAL IV PRN ×2 (10:20→17:35)
[2019-05-20 11:00] VITALS: BP 155/77
--- NOTE | 2019-05-20 11:00 | PDOC ---
PROGRESS NOTES Chief Complaint Chief Complaint A/P: s/p perf viscus repair 05/09 05/14 CTExtravasation of oral contrast within the right upper quadrant extending from the first portion of the duodenum, concerning for persistent duodenal perforation. Scattered pneumoperitoneum. Increased loculated fluid within the right mid abdomen adjacent to small bowel loops with wall thickening. Increased mesenteric edema and body wall edema. SEVERE SEPSIS Begin Dapto/Cefepime/Flagyl/Micafungin with leukocytosis and increased THANG drainage despite abx CT 05/14 with extravasation Severe protein-caloric malnutrition GREGG - likely vasomotor nephropathy Perforated duodenal ulcer - Diagnostic laparoscopy with open laparotomy and closure of duodenal ulcer and Dawood patch 05-09 Small amount of ascites is seen within the abdomen and pelvis HTN, Fair control Acute hypoxemic respiratory failure Acute exacerbation of chronic obstructive pulmonary disease. Tobacco dependence. Recent right shoulder repair Movement disorder NOS - parkinsonian symptoms - will restart meds HLD - restart statin DM 2 insulin req REcent RT shoulder sx (total arthroplasty at [facility]) MEt encepahlopathy sec to medical course History of Present Illness History of Present Illness SHakes, confised, mittens on at bedside NGT clearing up Accepted at [facility] CT head neg as expected Hopefully we get NGT out today STILL no UA specimen ON Procalamine and half normal saline at 75 CReat 1.4 from 2 NOT ON ANY ABX TRAnsferred to different room for video watch (CCTV) PLAN: UA,s tat straight cath if needed CXR and KUB ok LTAC on dc -when less confused (hopefully tmr) NEuro on board cont NPO, Procalamine dc 1/2 NS at 75 FULL CODE dw EZEQUIEL Simpson and at bedside Vitals Vitals Vital Signs Date Time Temp Pulse Resp B/P (MAP) Pulse Ox O2 Delivery O2 Flow Rate FiO2 05/20/19 10:20 Nasal Cannula 2.0 05/20/19 07:15 95 05/20/19 07:00 99.1 100 16 146/68 (94) 99.1 Physical Exam Physical Exam GENERAL: Laying in bed, NAD - HEENT: Pupils equally round. Oropharynx is clear. NGT NECK: Supple. LUNGS: Clear to auscultation. HEART: S1, S2 regular. ABDOMEN: Obese, soft, less distension. NT with hypoactive bowel sounds. Surgical dressings are dry and THANG drain intact- with continued bilious drainage. New THANG with serous fluid EXTREMITIES: No gross edema or cyanosis.. Right shoulder incision well-approx stable, clean. SKIN: Warm to touch. No signs of rash. NEUROLOGIC: sleepy, no focal deficit LUE - clean General: Other (resting, confusion) Heart: Regular rate (SR), Other (distant heart sounds) Lungs: Clear, Other (deminished bs) Abdomen: Soft, Other (drain thang bilious ) Extremities: No clubbing, No cyanosis, No edema, Normal pulses, No tenderness/swelling Skin: Other (abdominal surgical incision) Labs LABS Laboratory Tests Test 05/19/19 12:46 05/19/19 16:30 05/19/19 17:17 05/19/19 21:39 Glucose (Fingerstick) 255 mg/dL (70-99) 159 mg/dL (70-99) 199 mg/dL (70-99) O2 Saturation 94 % (92-99) Arterial Blood pH 7.40 (7.35-7.45) Arterial Blood pCO2 at Patient Temp 27 mmHg (35-46) Arterial Blood pO2 at Patient Temp 75 mmHg (65-108) Arterial Blood HCO3 17 mmol/L (21-28) Arterial Blood Base Excess -7 mmol/L (-3-3) FiO2 28% Test 05/20/19 05:05 05/20/19 05:58 White Blood Count 10.3 x10^3/uL (4.0-11.0) Red Blood Count 2.61 x10^6/uL (4.30-5.70) Hemoglobin 8.3 g/dL (13.0-17.5) Hematocrit 24.9 % (39.0-53.0) Mean Corpuscular Volume 96 fL (79-100) Mean Corpuscular Hemoglobin 32 pg (25-35) Mean Corpuscular Hemoglobin Concent 33 g/dL (31-37) Red Cell Distribution Width 14.5 % (11.5-14.5) Platelet Count 433 x10^3/uL (140-400) Neutrophils (%) (Auto) 75 % (31-73) Lymphocytes (%) (Auto) 12 % (24-48) Monocytes (%) (Auto) 10 % (0-9) Eosinophils (%) (Auto) 3 % (0-3) Basophils (%) (Auto) 1 % (0-3) Neutrophils # (Auto) 7.7 x10^3/uL (1.8-7.7) Lymphocytes # (Auto) 1.3 x10^3/uL (1.0-4.8) Monocytes # (Auto) 1.0 x10^3/uL (0.0-1.1) Eosinophils # (Auto) 0.3 x10^3/uL (0.0-0.7) Basophils # (Auto) 0.1 x10^3/uL (0.0-0.2) Sodium Level 148 mmol/L (136-145) Potassium Level 4.6 mmol/L (3.5-5.1) Chloride Level 114 mmol/L (98-107) Carbon Dioxide Level 22 mmol/L (21-32) Anion Gap 12 (6-14) Blood Urea Nitrogen 29 mg/dL (8-26) Creatinine 1.4 mg/dL (0.7-1.3) Estimated GFR (Cockcroft-Gault) 49.7 Glucose Level 198 mg/dL (70-99) Calcium Level 9.1 mg/dL (8.5-10.1) Glucose (Fingerstick) 192 mg/dL (70-99) Review of Systems Review of Systems confused, limited rOS Assessment and Plan Assessmemt and Plan Problems Medical Problems: (1) Perforated intestine, nontraumatic Status: Acute Comment Review of Relevant I have reviewed the following items adriano (where applicable) has been applied. Labs Laboratory Tests Test 05/18/19 12:37 05/18/19 17:00 05/18/19 17:41 05/18/19 23:14 Glucose (Fingerstick) 244 mg/dL (70-99) 185 mg/dL (70-99) 290 mg/dL (70-99) Ionized Calcium 1.26 mmol/L (1.13-1.32) Creatine Kinase 189 U/L (39-308) Vitamin B12 Level 1462 pg/mL (247-911) Thyroid Stimulating Hormone (TSH) 3.714 uIU/mL (0.358-3.74) Test 05/19/19 04:20 05/19/19 05:50 05/19/19 06:14 05/19/19 12:46 White Blood Count 12.0 x10^3/uL (4.0-11.0) Red Blood Count 2.40 x10^6/uL (4.30-5.70) Hemoglobin 7.8 g/dL (13.0-17.5) Hematocrit 24.7 % (39.0-53.0) Mean Corpuscular Volume 103 fL (79-100) Mean Corpuscular Hemoglobin 32 pg (25-35) Mean Corpuscular Hemoglobin Concent 32 g/dL (31-37) Red Cell Distribution Width 16.5 % (11.5-14.5) Platelet Count 403 x10^3/uL (140-400) Neutrophils (%) (Auto) 76 % (31-73) Lymphocytes (%) (Auto) 12 % (24-48) Monocytes (%) (Auto) 11 % (0-9) Eosinophils (%) (Auto) 1 % (0-3) Basophils (%) (Auto) 1 % (0-3) Neutrophils # (Auto) 9.1 x10^3/uL (1.8-7.7) Lymphocytes # (Auto) 1.4 x10^3/uL (1.0-4.8) Monocytes # (Auto) 1.3 x10^3/uL (0.0-1.1) Eosinophils # (Auto) 0.2 x10^3/uL (0.0-0.7) Basophils # (Auto) 0.1 x10^3/uL (0.0-0.2) Sodium Level 150 mmol/L (136-145) Potassium Level 4.9 mmol/L (3.5-5.1) Chloride Level 117 mmol/L (98-107) Carbon Dioxide Level 21 mmol/L (21-32) Anion Gap 12 (6-14) Blood Urea Nitrogen 33 mg/dL (8-26) Creatinine 1.5 mg/dL (0.7-1.3) Estimated GFR (Cockcroft-Gault) 45.9 BUN/Creatinine Ratio 22 (6-20) Glucose Level 232 mg/dL (70-99) Calcium Level 8.8 mg/dL (8.5-10.1) Phosphorus Level 3.4 mg/dL (2.6-4.7) Magnesium Level 1.9 mg/dL (1.8-2.4) Iron Level 27 ug/dL (65-175) Total Iron Binding Capacity 172 ug/dL (250-450) Iron Saturation 16 % (15-34) Ferritin 635 ng/mL (26-388) Total Bilirubin 0.4 mg/dL (0.2-1.0) Aspartate Amino Transf (AST/SGOT) 23 U/L (15-37) Alanine Aminotransferase (ALT/SGPT) 25 U/L (16-63) Alkaline Phosphatase 92 U/L (46-116) Total Protein 6.2 g/dL (6.4-8.2) Albumin 2.0 g/dL (3.4-5.0) Albumin/Globulin Ratio 0.5 (1.0-1.7) Glucose (Fingerstick) 232 mg/dL (70-99) 255 mg/dL (70-99) Test 05/19/19 16:30 05/19/19 17:17 05/19/19 21:39 05/20/19 05:05 O2 Saturation 94 % (92-99) Arterial Blood pH 7.40 (7.35-7.45) Arterial Blood pCO2 at Patient Temp 27 mmHg (35-46) Arterial Blood pO2 at Patient Temp 75 mmHg (65-108) Arterial Blood HCO3 17 mmol/L (21-28) Arterial Blood Base Excess -7 mmol/L (-3-3) FiO2 28% Glucose (Fingerstick) 159 mg/dL (70-99) 199 mg/dL (70-99) White Blood Count 10.3 x10^3/uL (4.0-11.0) Red Blood Count 2.61 x10^6/uL (4.30-5.70) Hemoglobin 8.3 g/dL (13.0-17.5) Hematocrit 24.9 % (39.0-53.0) Mean Corpuscular Volume 96 fL (79-100) Mean Corpuscular Hemoglobin 32 pg (25-35) Mean Corpuscular Hemoglobin Concent 33 g/dL (31-37) Red Cell Distribution Width 14.5 % (11.5-14.5) Platelet Count 433 x10^3/uL (140-400) Neutrophils (%) (Auto) 75 % (31-73) Lymphocytes (%) (Auto) 12 % (24-48) Monocytes (%) (Auto) 10 % (0-9) Eosinophils (%) (Auto) 3 % (0-3) Basophils (%) (Auto) 1 % (0-3) Neutrophils # (Auto) 7.7 x10^3/uL (1.8-7.7) Lymphocytes # (Auto) 1.3 x10^3/uL (1.0-4.8) Monocytes # (Auto) 1.0 x10^3/uL (0.0-1.1) Eosinophils # (Auto) 0.3 x10^3/uL (0.0-0.7) Basophils # (Auto) 0.1 x10^3/uL (0.0-0.2) Sodium Level 148 mmol/L (136-145) Potassium Level 4.6 mmol/L (3.5-5.1) Chloride Level 114 mmol/L (98-107) Carbon Dioxide Level 22 mmol/L (21-32) Anion Gap 12 (6-14) Blood Urea Nitrogen 29 mg/dL (8-26) Creatinine 1.4 mg/dL (0.7-1.3) Estimated GFR (Cockcroft-Gault) 49.7 Glucose Level 198 mg/dL (70-99) Calcium Level 9.1 mg/dL (8.5-10.1) Test 05/20/19 05:58 Glucose (Fingerstick) 192 mg/dL (70-99) Laboratory Tests Test 05/19/19 12:46 05/19/19 16:30 05/19/19 17:17 05/19/19 21:39 Glucose (Fingerstick) 255 mg/dL (70-99) 159 mg/dL (70-99) 199 mg/dL (70-99) O2 Saturation 94 % (92-99) Arterial Blood pH 7.40 (7.35-7.45) Arterial Blood pCO2 at Patient Temp 27 mmHg (35-46) Arterial Blood pO2 at Patient Temp 75 mmHg (65-108) Arterial Blood HCO3 17 mmol/L (21-28) Arterial Blood Base Excess -7 mmol/L (-3-3) FiO2 28% Test 05/20/19 05:05 05/20/19 05:58 White Blood Count 10.3 x10^3/uL (4.0-11.0) Red Blood Count 2.61 x10^6/uL (4.30-5.70) Hemoglobin 8.3 g/dL (13.0-17.5) Hematocrit 24.9 % (39.0-53.0) Mean Corpuscular Volume 96 fL (79-100) Mean Corpuscular Hemoglobin 32 pg (25-35) Mean Corpuscular Hemoglobin Concent 33 g/dL (31-37) Red Cell Distribution Width 14.5 % (11.5-14.5) Platelet Count 433 x10^3/uL (140-400) Neutrophils (%) (Auto) 75 % (31-73) Lymphocytes (%) (Auto) 12 % (24-48) Monocytes (%) (Auto) 10 % (0-9) Eosinophils (%) (Auto) 3 % (0-3) Basophils (%) (Auto) 1 % (0-3) Neutrophils # (Auto) 7.7 x10^3/uL (1.8-7.7) Lymphocytes # (Auto) 1.3 x10^3/uL (1.0-4.8) Monocytes # (Auto) 1.0 x10^3/uL (0.0-1.1) Eosinophils # (Auto) 0.3 x10^3/uL (0.0-0.7) Basophils # (Auto) 0.1 x10^3/uL (0.0-0.2) Sodium Level 148 mmol/L (136-145) Potassium Level 4.6 mmol/L (3.5-5.1) Chloride Level 114 mmol/L (98-107) Carbon Dioxide Level 22 mmol/L (21-32) Anion Gap 12 (6-14) Blood Urea Nitrogen 29 mg/dL (8-26) Creatinine 1.4 mg/dL (0.7-1.3) Estimated GFR (Cockcroft-Gault) 49.7 Glucose Level 198 mg/dL (70-99) Calcium Level 9.1 mg/dL (8.5-10.1) Glucose (Fingerstick) 192 mg/dL (70-99) Microbiology 05/15/19 AFB Specimen Processing Tissue - Final, Resulted 05/15/19 Acid Fast Bacilli Culture, Resulted Pending 05/15/19 Gram Stain - Final, Resulted 05/15/19 Fungal Culture, Resulted Pending 05/15/19 Fungal Culture Result 1, Resulted Pending Medications Current Medications Fentanyl Citrate (Fentanyl 2ml Vial) 50 mcg PRN Q15MIN PRN IV PAIN GREATER THAN 3/10 Last administered on 05/08/19at 19:27; Start 05/08/19 at 16:30; Stop 05/08/19 at 21:00; Status DC Sodium Chloride 1,000 ml @ 250 mls/hr Q4H IV Last administered on 05/08/19at 16:54; Start 05/08/19 at 16:19; Stop 05/08/19 at 20:18; Status DC Metoclopramide HCl (Reglan Vial) 10 mg 1X ONCE IVP Last administered on 05/08/19at 16:51; Start 05/08/19 at 17:00; Stop 05/08/19 at 17:01; Status DC Diphenhydramine HCl (Benadryl) 25 mg 1X ONCE IVP Last administered on 05/08/19at 16:51; Start 05/08/19 at 17:00; Stop 05/08/19 at 17:01; Status DC Iohexol (Omnipaque 350 Mg/ml) 90 ml 1X ONCE IV Last administered on 05/08/19at 17:45; Start 05/08/19 at 17:30; Stop 05/08/19 at 17:31; Status DC Info (CONTRAST GIVEN -- Rx MONITORING) 1 each PRN DAILY PRN MC SEE COMMENTS; Start 05/08/19 at 17:30; Stop 05/10/19 at 17:29; Status DC Hydromorphone HCl (Dilaudid) 1 mg 1X ONCE IV Last administered on 05/08/19at 18:23; Start 05/08/19 at 18:30; Stop 05/08/19 at 18:31; Status DC Piperacillin Sod/ Tazobactam Sod 3.375 gm/Sodium Chloride 50 ml @ 100 mls/hr 1X ONCE IV Last administered on 05/08/19at 19:06; Start 05/08/19 at 19:00; Stop 05/08/19 at 19:29; Status DC Sodium Chloride 1,000 ml @ 1,000 mls/hr 1X ONCE IV Last administered on 05/08/19at 19:06; Start 05/08/19 at 19:00; Stop 05/08/19 at 19:59; Status DC Ondansetron HCl (Zofran) 4 mg STK-MED ONCE .ROUTE ; Start 05/08/19 at 19:34; Stop 05/08/19 at 19:34; Status DC Propofol 20 ml @ As Directed STK-MED ONCE IV ; Start 05/08/19 at 19:34; Stop 05/08/19 at 19:34; Status DC Lidocaine HCl (Lidocaine Pf 2% Vial) 5 ml STK-MED ONCE .ROUTE ; Start 05/08/19 at 19:34; Stop 05/08/19 at 19:34; Status DC Dexamethasone Sodium Phosphate (Decadron) 4 mg STK-MED ONCE .ROUTE ; Start at 19:34; Stop 05/08/19 at 19:34; Status DC Fentanyl Citrate (Fentanyl 2ml Vial) 100 mcg STK-MED ONCE .ROUTE ; Start at 19:34; Stop 05/08/19 at 19:34; Status DC Succinylcholine Chloride (Anectine) 200 mg STK-MED ONCE .ROUTE ; Start 05/08/19 at 19:34; Stop 05/08/19 at 19:34; Status DC Rocuronium [place] (Zemuron) 50 mg STK-MED ONCE .ROUTE ; Start 05/08/19 at 19:34; Stop 05/08/19 at 19:34; Status DC Ondansetron HCl (Zofran) 4 mg PRN Q6HRS PRN IV NAUSEA/VOMITING; Start 05/08/19 at 19:45; Stop 05/08/19 at 23:59; Status DC Fentanyl Citrate (Fentanyl 2ml Vial) 25 mcg PRN Q5MIN PRN IV MILD PAIN 1-3; Start 05/08/19 at 19:45; Stop 05/08/19 at 23:59; Status DC Fentanyl Citrate (Fentanyl 2ml Vial) 50 mcg PRN Q5MIN PRN IV MODERATE TO SEVERE PAIN; Start 05/08/19 at 19:45; Stop 05/08/19 at 23:59; Status DC Ringer's Solution 1,000 ml @ 30 mls/hr Q24H IV Last administered on 05/08/19at 23:06; Start 05/08/19 at 20:00; Stop 05/09/19 at 01:00; Status DC Prochlorperazine Edisylate (Compazine) 5 mg PACU PRN PRN IV NAUSEA, MRX1; Start 05/08/19 at 19:45; Stop 05/08/19 at 23:59; Status DC Insulin Human Lispro (HumaLOG VIAL for OP,RR ONLY) 0-10 units PRN Q1HR PRN SQ PER PROTOCOL; Start 05/08/19 at 19:45; Stop 05/08/19 at 23:59; Status DC Bupivacaine HCl/ Epinephrine Bitart (Sensorcaine-Epi 0.25%-1:[id number] Mpf) 30 ml 1X ONCE INJ Last administered on 05/08/19at 20:32; Start 05/08/19 at 20:00; Stop 05/08/19 at 20:01; Status DC Ketamine HCl (Ketamine) 50 mg STK-MED ONCE .ROUTE ; Start 05/08/19 at 20:12; Stop 05/08/19 at 20:12; Status DC Phenylephrine HCl (PHENYLEPHRINE in 0.9% NACL PF) 1 mg STK-MED ONCE IV ; Start 05/08/19 at 20:33; Stop 05/08/19 at 20:33; Status DC Ephedrine Sulfate (ePHEDrine PF IN SALINE SYRINGE) 50 mg STK-MED ONCE IV ; Start 05/08/19 at 20:36; Stop 05/08/19 at 20:36; Status DC Albumin Human 500 ml @ As Directed STK-MED ONCE IV ; Start 05/08/19 at 20:55; Stop 05/08/19 at 20:55; Status DC Glycopyrrolate (Robinul) 1 mg STK-MED ONCE .ROUTE ; Start 05/08/19 at 21:27; Stop 05/08/19 at 21:27; Status DC Neostigmine Methylsulfate (Neostigmine Methylsulfate) 5 mg STK-MED ONCE .ROUTE ; Start 05/08/19 at 21:27; Stop 05/08/19 at 21:27; Status DC Bupivacaine HCl (Sensorcaine Mpf 0.5%) 30 ml STK-MED ONCE .ROUTE ; Start 05/08/19 at 21:39; Stop 05/08/19 at 21:39; Status DC Epinephrine HCl (Adrenalin) 1 mg STK-MED ONCE .ROUTE ; Start 05/08/19 at 21:39; Stop 05/08/19 at 21:39; Status DC Sevoflurane (Ultane) 60 ml STK-MED ONCE IH ; Start 05/08/19 at 21:44; Stop 05/08/19 at 21:44; Status DC Sodium Chloride 1,000 ml @ 125 mls/hr Q8H IV Last administered on 05/08/19at 23:45; Start 05/08/19 at 22:00; Stop 05/09/19 at 15:21; Status DC Ondansetron HCl (Zofran) 4 mg PRN Q6HRS PRN IVP NAUSEA/VOMITING 1ST CHOICE; Start 05/08/19 at 22:00 Fluconazole/ Sodium Chloride 100 ml @ 100 mls/hr Q24H IV Last administered on 05/13/19at 21:14; Start 05/08/19 at 22:00; Stop 05/14/19 at 10:28; Status DC Hydromorphone HCl (Dilaudid) 1 mg PRN Q4HRS PRN IV SEVERE PAIN 7-10 Last administered on 05/18/19at 10:14; Start 05/08/19 at 22:00; Stop 05/18/19 at 13:06; Status DC Piperacillin Sod/ Tazobactam Sod 3.375 gm/Sodium Chloride 50 ml @ 100 mls/hr Q6HRS IV Last administered on 05/14/19at 05:49; Start 05/09/19 at 00:00; Stop 05/14/19 at 10:28; Status DC Pantoprazole Sodium (PROTONIX VIAL for IV PUSH) 40 mg DAILY IVP Last administered on 05/11/19at 09:43; Start 05/09/19 at 09:00; Stop 05/12/19 at 08:30; Status DC Insulin Human Regular 150 unit/ Sodium Chloride 151.5 ml @ 0 mls/hr CONT PRN IV SEE I/O RECORD; Start 05/08/19 at 23:00; Status UNV Insulin Human Regular 150 unit/ Sodium Chloride 151.5 ml @ 0 mls/hr CONT PRN IV SEE I/O RECORD Last administered on 05/08/19at 23:03; Start 05/08/19 at 23:00; Stop 05/12/19 at 13:06; Status DC Dextrose (Dextrose 50%-Water Syringe) 12.5 gm PRN Q15MIN PRN IV LOW BLOOD SUGAR; Start 05/08/19 at 23:00; Stop 05/17/19 at 08:35; Status DC Dextrose 250 ml PRN Q15MIN PRN IV LOW BLOOD SUGAR; Start 05/08/19 at 23:00 Albumin Human 500 ml @ 250 mls/hr 1X ONCE IV Last administered on 05/09/19at 00:10; Start 05/09/19 at 00:30; Stop 05/09/19 at 02:29; Status DC Norepinephrine Bitartrate 250 ml @ 20.156 mls/ hr CONT PRN IV SEE I/O RECORD; Start 05/09/19 at 00:00; Stop 05/12/19 at 13:06; Status DC Dextrose/Sodium Chloride 1,000 ml @ 150 mls/hr Q6H40M IV Last administered on 05/09/19at 12:28; Start 05/09/19 at 08:45; Stop 05/09/19 at 18:30; Status DC Sodium Chloride 500 ml @ 500 mls/hr PRN Q2HR PRN IV SEE COMMENTS; Start 05/09 at 11:15 Sodium Chloride 1,000 ml @ 2,190 mls/hr Q28M IV ; Start 05/09/19 at 12:39; Stop 05/09/19 at 13:39; Status DC Sodium Chloride 500 ml @ 1,000 mls/hr PRN Q30MIN PRN IV SEE COMMENTS; Start 05/09/19 at 12:45; Stop 05/09/19 at 12:50; Status DC Norepinephrine Bitartrate 250 ml @ 19.688 mls/ hr CONT PRN IV SEE I/O RECORD; Start 05/09/19 at 12:45; Status Cancel Dobutamine HCl/ Dextrose 250 ml @ 15.75 mls/ hr CONT PRN IV SEE I/O RECORD; Start 05/09/19 at 12:45; Stop 05/12/19 at 13:06; Status DC Insulin Human Lispro (HumaLOG) 0-7 UNITS TIDWMEALS SQ ; Start 05/09/19 at 17:00; Stop 05/09/19 at 19:36; Status DC Dextrose (Dextrose 50%-Water Syringe) 12.5 gm PRN Q15MIN PRN IV SEE COMMENTS; Start 05/09/19 at 15:30; Status UNV Sodium Chloride 1,000 ml @ 60 mls/hr [id number] IV Last administered on 05/10/19at 16:47; Start 05/09/19 at 15:30; Stop 05/12/19 at 10:57; Status DC Insulin Human Lispro (HumaLOG) 0-7 UNITS Q6HRS SQ Last administered on 05/13/19at 05:50; Start 05/10/19 at 00:00; Stop 05/13/19 at 08:27; Status DC Albuterol/ Ipratropium (Duoneb) 3 ml RTQID NEB Last administered on 05/20/19at 07:15; Start 05/10/19 at 08:00 Budesonide (Pulmicort) 0.5 mg RTBID NEB Last administered on 05/20/19at 07:15; Start 05/10/19 at 08:00 Heparin Sodium (Porcine) (Heparin Sodium) 5,000 unit BID SQ Last administered on 05/20/19at 08:46; Start 05/11/19 at 10:00 Phenol (Chloraseptic) 1 spray PRN Q2HR PRN PO SORE THROAT Last administered on 05/11/19at 13:12; Start 05/11/19 at 11:30 Multi-Ingredient Ointment (Analgesic [place]) 1 jazlyn PRN QID PRN TP MUSCLE PAIN; Start 05/11/19 at 11:30 Amino Acids/ Glycerin/ Electrolytes 1,000 ml @ 80 mls/hr [id number] IV Last administered on 05/15/19at 05:59; Start 05/11/19 at 12:00; Stop 05/15/19 at 21:59; Status DC Hydralazine HCl (Apresoline Inj) 10 mg PRN Q4HRS PRN IVP ELEVATED BP, SEE COMMENTS; Start 05/11/19 at 11:45 Pantoprazole Sodium (Protonix) 40 mg DAILYAC PO Last administered on 05/14/19at 06:04; Start 05/12/19 at 09:00; Stop 05/17/19 at 11:29; Status DC Carbidopa/Levodopa (Sinemet 25/100) 1 tab TID PO ; Start 05/12/19 at 14:00; Stop 05/12/19 at 13:40; Status DC Lisinopril (Prinivil) 10 mg DAILY PO Last administered on 05/14/19 09:14; Start 05/13/19 at 09:00; Stop 05/16/19 at 10:07; Status DC Simvastatin (Zocor) 10 mg QHS PO Last administered on 05/14/19 21:08; Start 05/12/19 at 21:00 Venlafaxine HCl (Effexor) 75 mg DAILY PO Last administered on 05/12/19at 13:34; Start 05/12/19 at 13:30; Stop 05/12/19 at 14:20; Status DC Primidone (Mysoline) 50 mg DAILY PO ; Start 05/12/19 at 13:45; Stop 05/12/19 at 14:27; Status DC Insulin Glargine (Lantus Syringe) 15 unit QHS SQ Last administered on 05/16/19 22:25; Start 05/12/19 at 21:00; Stop 05/17/19 at 08:31; Status DC Venlafaxine HCl (Effexor Xr) 75 mg DAILY PO Last administered on 05/14/19 09:13; Start 05/13/19 at 09:00 Lactobacillus Rhamnosus (Culturelle) 1 cap BID PO Last administered on 05/14/19 21:08; Start 05/12/19 at 21:00 Primidone (Mysoline) 25 mg BID PO Last administered on 05/14/19 21:08; Start 05/12/19 at 14:30 Gabapentin (Neurontin) 300 mg PRN QHS PRN PO NEUROPATHIC PAIN Last administered on 05/12/19at 20:53; Start 05/12/19 at 17:45 Acetaminophen (Tylenol) 500 mg PRN Q6HRS PRN PO MILD PAIN / TEMP; Start 05/13/19 at 08:30 Tramadol HCl (Ultram) 50 mg PRN Q6HRS PRN PO PAIN MOD TO SEV Last administered on 05/14/19 04:27; Start 05/13/19 at 08:30; Stop 05/19/19 at 16:19; Status DC Clonidine HCl (Catapres) 0.1 mg PRN Q1HR PRN PO HYPERTENSION; Start 05/13/19 at 08:30 Ondansetron HCl (Zofran) 4 mg PRN Q6HRS PRN IVP NAUSEA/VOMITING; Start 05/13/19 at 08:30; Status UNV Venlafaxine HCl (Effexor Xr) 37.5 mg BID PO ; Start 05/13/19 at 09:00; Stop 05/13/19 at 08:33; Status DC Iohexol (Omnipaque 240 Mg/ml) 30 ml 1X ONCE PO Last administered on 05/14/19at 08:45; Start 05/14/19 at 08:45; Stop 05/14/19 at 08:48; Status DC Iohexol (Omnipaque 300 Mg/ml) 60 ml 1X ONCE IV Last administered on 05/14/19at 08:45; Start 05/14/19 at 08:45; Stop 05/14/19 at 08:48; Status DC Info (CONTRAST GIVEN -- Rx MONITORING) 1 each PRN DAILY PRN MC SEE COMMENTS; Start 05/14/19 at 09:00; Stop 05/16/19 at 08:59; Status DC Daptomycin 570 mg/ Sodium Chloride 50 ml @ 100 mls/hr Q24H IV Last administered on 05/19/19at 13:21; Start 05/14/19 at 11:30; Stop 05/20/19 at 08:07; Status DC Micafungin Sodium 100 mg/Dextrose 100 ml @ 100 mls/hr Q24H IV Last administer ed on 05/19/19at 11:32; Start 05/14/19 at 11:00; Stop 05/20/19 at 08:07; Status DC Cefepime HCl (Maxipime) 2 gm Q8HRS IVP Last administered on 05/18/19at 06:25; Start 05/14/19 at 12:00; Stop 05/18/19 at 08:18; Status DC Metronidazole 100 ml @ 100 mls/hr Q8HRS IV Last administered on 05/18/19at 06:28; Start 05/14/19 at 14:00; Stop 05/18/19 at 08:18; Status DC Lidocaine HCl (Buffered Lidocaine 1%) 3 ml STK-MED ONCE .ROUTE ; Start 05/14/19 at 12:43; Stop 05/14/19 at 12:44; Status DC Lidocaine HCl (Buffered Lidocaine 1%) 3 ml 1X ONCE IJ Last administered on 05/14/19at 13:14; Start 05/14/19 at 13:00; Stop 05/14/19 at 13:02; Status DC Info (Tpn Per Pharmacy) 1 each PRN DAILY PRN MC SEE COMMENTS Last administered on 05/18/19at 11:41; Start 05/14/19 at 16:00; Stop 05/19/19 at 11:20; Status DC Sodium Chloride 90 meq/Potassium Chloride 50 meq/ Potassium Phosphate 13.6 mmol/Magnesium Sulfate 10 meq/ Calcium Gluconate 10 meq/ Multivitamins 10 ml/Chromium/ Copper/Manganese/ Seleni/Zn 1 ml/ Total Parenteral Nutrition/Amino Acids/Dextrose/ Fat Emulsion Intravenous 1,512 ml @ 63 mls/hr TPN CONT IV Last administered on 05/15/19at 21:58; Start 05/15/19 at 22:00; Stop 05/16/19 at 21:59; Status DC Lidocaine HCl (Buffered Lidocaine 1%) 3 ml STK-MED ONCE .ROUTE ; Start 05/15/19 at 13:19; Stop 05/15/19 at 13:19; Status DC Midazolam HCl (Versed) 2 mg STK-MED ONCE .ROUTE ; Start 05/15/19 at 13:47; Stop 05/15/19 at 13:47; Status DC Fentanyl Citrate (Fentanyl 2ml Vial) 100 mcg STK-MED ONCE .ROUTE ; Start 05/15 at 13:47; Stop 05/15/19 at 13:47; Status DC Flumazenil (Romazicon) 0.5 mg STK-MED ONCE IV ; Start 05/15/19 at 13:47; Stop 05/15/19 at 13:47; Status DC Naloxone HCl (Narcan) 0.4 mg STK-MED ONCE .ROUTE ; Start 05/15/19 at 13:47; Stop 05/15/19 at 13:47; Status DC Lidocaine HCl (Buffered Lidocaine 1%) 4 ml 1X ONCE IJ Last administered on 05/15/19at 14:30; Start 05/15/19 at 14:30; Stop 05/15/19 at 14:38; Status DC Midazolam HCl (Versed) 1 mg 1X ONCE IV Last administered on 05/15/19at 14:30; Start 05/15/19 at 14:30; Stop 05/15/19 at 14:38; Status DC Fentanyl Citrate (Fentanyl 2ml Vial) 50 mcg 1X ONCE IV Last administered on 05/15/19at 14:30; Start 05/15/19 at 14:30; Stop 05/15/19 at 14:38; Status DC Insulin Human Lispro (HumaLOG) 0-9 UNITS TIDWMEALS SQ ; Start 05/16/19 at 17:00; Stop 05/16/19 at 13:29; Status DC Dextrose (Dextrose 50%-Water Syringe) 12.5 gm PRN Q15MIN PRN IV SEE COMMENTS; Start 05/16/19 at 13:15 Insulin Human Regular (HumuLIN R VIAL) 8 unit 1X ONCE IV Last administered on 05/16/19at 13:36; Start 05/16/19 at 13:15; Stop 05/16/19 at 13:22; Status DC Insulin Human Lispro (HumaLOG) 0-9 UNITS Q6HRS SQ Last administered on 05/19/19at 13:23; Start 05/16/19 at 18:00 Sodium Chloride 90 meq/Potassium Chloride 50 meq/ Potassium Phosphate 13.6 mmol/Magnesium Sulfate 10 meq/ Calcium Gluconate 10 meq/ Multivitamins 10 ml/Chromium/ Copper/Manganese/ Seleni/Zn 1 ml/ Total Parenteral Nutrition/Amino Acids/Dextrose/ Fat Emulsion Intravenous 1,512 ml @ 63 mls/hr TPN CONT IV Last administered on 05/16/19at 21:56; Start 05/16/19 at 22:00; Stop 05/17/19 at 21:59; Status DC Sodium Chloride 1,000 ml @ 75 mls/hr [id number] IV Last administered on 05/19/19at 04:50; Start 05/16/19 at 14:45; Stop 05/19/19 at 11:20; Status DC Insulin Glargine (Lantus Syringe) 22 unit QHS SQ Last administered on 05/17/19at 20:46; Start 05/17/19 at 08:30; Stop 05/18/19 at 07:49; Status DC Labetalol HCl (Normodyne Iv Push) 10 mg PRN Q2HR PRN IVP HYPERTENSION; Start 05/17/19 at 08:30 Insulin Glargine (Lantus Syringe) 10 unit 1X STAT SQ Last administered on 05/17/19at 09:13; Start 05/17/19 at 08:30; Stop 05/17/19 at 08:33; Status DC Pantoprazole Sodium (PROTONIX VIAL for IV PUSH) 40 mg DAILYAC IVP Last administered on 05/20/19at 05:11; Start 05/17/19 at 13:00 Sodium Chloride 60 meq/Potassium Chloride 30 meq/ Potassium Phosphate 13.6 mmol/Magnesium Sulfate 10 meq/ Calcium Gluconate 10 meq/ Multivitamins 10 ml/Chromium/ Copper/Manganese/ Seleni/Zn 1 ml/ Total Parenteral Nutrition/Amino Acids/Dextrose/ Fat Emulsion Intravenous 1,512 ml @ 63 mls/hr TPN CONT IV Last administered on 05/17/19at 23:13; Start 05/17/19 at 22:00; Stop 05/18/19 at 21:59; Status DC Haloperidol Lactate (Haldol Inj) 2 mg 1X ONCE IM ; Start 05/17/19 at 22:30; Stop 05/17/19 at 22:31; Status Cancel Haloperidol Lactate (Haldol Inj) 2 mg 1X ONCE IVP Last administered on 05/17/19at 23:01; Start 05/17/19 at 22:45; Stop 05/17/19 at 22:46; Status DC Lorazepam (Ativan Inj) 1 mg PRN Q6HRS PRN IVP ANXIETY / AGITATION Last administered on 05/18/19at 01:32; Start 05/18/19 at 01:30; Stop 05/18/19 at 07:48; Status DC Haloperidol Lactate (Haldol Inj) 5 mg 1X ONCE IVP Last administered on 05/18/19at 04:41; Start 05/18/19 at 04:30; Stop 05/18/19 at 04:31; Status DC Lorazepam (Ativan Inj) 1 mg 1X ONCE IVP Last administered on 05/18/19at 05:02; Start 05/18/19 at 04:30; Stop 05/18/19 at 04:31; Status DC Lorazepam (Ativan Inj) 2 mg PRN Q4HRS PRN IVP ANXIETY / AGITATION Last administered on 05/19/19at 03:07; Start 05/18/19 at 07:45; Stop 05/19/19 at 07:55; Status DC Insulin Glargine (Lantus Syringe) 35 unit QHS SQ Last administered on 05/19/19 21:00; Start 05/18/19 at 21:00 Insulin Glargine (Lantus Syringe) 10 unit ONCE STAT SQ Last administered on 05/18/19 07:47; Start 05/18/19 at 07:47; Stop 05/18/19 at 07:51; Status DC Haloperidol Lactate (Haldol Inj) 5 mg PRN Q6HRS PRN IVP AGITATION 2nd choice Last administered on 05/19/19 07:07; Start 05/18/19 at 08:00; Stop 05/19/19 at 07:55; Status DC Meropenem 500 mg/ Sodium Chloride 50 ml @ 100 mls/hr Q6HRS IV Last administered on 05/20/19 05:13; Start 05/18/19 at 09:00 Bacitracin (Bacitracin Zinc Oint Pkt) 1 pkt DAILY TP Last administered on 05/19/19 08:19; Start 05/18/19 at 10:15 Potassium Phosphate 13.6 mmol/Magnesium Sulfate 10 meq/ Calcium Gluconate 10 meq / Multivitamins 10 ml/Chromium/ Copper/Manganese/ Seleni/Zn 1 ml/ Total Parenteral Nutrition/Amino Acids/Dextrose/ Fat Emulsion Intravenous 1,512 ml @ 63 mls/hr TPN CONT IV Last administered on 05/18/19 22:35; Start 05/18/19 at 22:00; Stop 05/19/19 at 13:00; Status DC Hydromorphone HCl (Dilaudid) 1 mg PRN Q2HR PRN IV SEVERE PAIN 7-10 Last administered on 05/19/19at 07:07; Start 05/18/19 at 13:15; Stop 05/19/19 at 07:55; Status DC Lacosamide 100 mg/ Dextrose 60 ml @ 120 mls/hr BID IV Last administered on 05/20/19at 08:36; Start 05/18/19 at 15:00 Haloperidol Lactate (Haldol Inj) 2.5 mg PRN Q6HRS PRN IVP AGITATION 2nd choice Last administered on 05/20/19at 01:51; Start 05/19/19 at 08:00 Hydromorphone HCl (Dilaudid) 0.5 mg PRN Q2HR PRN IV SEVERE PAIN 7-10 Last administered on 05/20/19at 10:20; Start 05/19/19 at 08:00 Lorazepam (Ativan Inj) 1 mg PRN Q4HRS PRN IVP ANXIETY / AGITATION Last administered on 05/19/19at 12:38; Start 05/19/19 at 08:00; Stop 05/19/19 at 16:19; Status DC Amino Acids/ Glycerin/ Electrolytes 1,000 ml @ 80 mls/hr [id number] IV Last administered on 05/20/19at 01:52; Start 05/19/19 at 13:00 Sodium Chloride 1,000 ml @ 75 mls/hr [id number] IV Last administered on 05/20/19at 05:13; Start 05/19/19 at 16:30 Active Scripts Active Reported Venlafaxine Hcl Er (Venlafaxine Hcl) 75 Mg Cap.er.24h 75 Mg PO DAILY Simvastatin 10 Mg Tablet 10 Mg PO DAILY Metformin Hcl 1,000 Mg Tablet 1,000 Mg PO BIDWMEALS Meloxicam 15 Mg Tablet Unknown Dose PO DAILY Lisinopril 10 Mg Tablet Unknown Dose PO DAILY Humalog (Insulin Lispro) 100 Unit/1 Ml Cartridge 100 Unit SQ Sinemet 25-100 Mg Tablet (Carbidopa/Levodopa) 1 Each Tablet 1 Tab PO TID Vitals/I & O Vital Sign - Last 24 Hours 05/19/19 05/19/19 05/19/19 05/19/19 11:00 11:03 15:00 15:55 Temp 97.7 99.9 97.7 99.9 Pulse 101 102 Resp 18 18 B/P (MAP) 175/73 (107) 112/42 (65) Pulse Ox 100 96 100 O2 Delivery Room Air Nasal Cannula Nasal Cannula Nasal Cannula O2 Flow Rate 2.0 3.0 2.0 05/19/19 05/19/19 05/19/19 05/19/19 16:32 19:00 19:54 20:00 Temp 99.6 99.6 Pulse 93 Resp 22 B/P (MAP) 151/71 (97) Pulse Ox 95 100 O2 Delivery Nasal Cannula Nasal Cannula Nasal Cannula Nasal Cannula O2 Flow Rate 2.0 3.0 2.0 2.0 05/19/19 05/20/19 05/20/19 05/20/19 22:59 03:00 07:00 07:15 Temp 98.7 99.5 99.1 98.7 99.5 99.1 Pulse 61 70 100 Resp 22 22 16 B/P (MAP) 149/66 (93) 108/40 (62) 146/68 (94) Pulse Ox 96 95 94 95 O2 Delivery Nasal Cannula Nasal Cannula Room Air Nasal Cannula O2 Flow Rate 3.0 2.0 2.0 05/20/19 10:20 O2 Delivery Nasal Cannula O2 Flow Rate 2.0 Intake and Output 05/19/19 05/19/19 05/20/19 15:00 23:00 07:00 Intake Total 0 ml Output Total 200 ml 690 ml 450 ml Balance -200 ml -690 ml -450 ml HARITHA LARA MD May 20, 2019 11:00
--- NOTE | 2019-05-20 11:05 | PDOC ---
SUBJECTIVE ROS Follow-up for AK I, hyper natremia, parenteral nutrition Patient remains significantly confused. Family at bedside. He remains and mittens for restraints currently. NG tube in place. He does appear to be waken up some but remains agitated. OBJECTIVE Vital Signs Vital Signs Date Time Temp Pulse Resp B/P (MAP) Pulse Ox O2 Delivery O2 Flow Rate FiO2 05/20/19 10:20 Nasal Cannula 2.0 05/20/19 07:15 95 05/20/19 07:00 99.1 100 16 146/68 (94) 99.1 I & 0 Intake and Output 05/20/19 07:00 Intake Total 0 ml Output Total 1340 ml Balance -1340 ml Intake Oral 0 ml Gastric Drainage Total 900 ml Drainage Total 440 ml # Voids 8 PHYSICAL EXAM Physical Exam GEN: Little more Awake today, Oriented x 0, In no visible distress, agitated and confused EYES: Sclera is anicteric Conjunctiva Normal EN: No EN Drainage, Mucous Membranes dry NECK: no JVD, no JVP, Supple, no Thyromegaly CVS: S1S2, possible Murmur, No Gallop, No Rub,no Edema RESP: no Rales, no Rhonchi,no Acc. Muscle Use GI: BS + ve, NO Bruit, Min Tender, Non Distended : no CVA tenderness, no Suprapubic Tenderness DIAGNOSIS/ASSESSMENT Assessment & Plan ARF: Outpatient baseline is not available. Current fluid and E-lyte status does not necessitate emergent need for dialysis. Chronic kidney disease stage III underlying with baseline creatinine of 1.5 given other foci of atherosclerotic vascular disease cannot be ruled out. Hypernatremia: Better today After changing TPN to PPN for now. Severe hypoalbuminemia: Presumably associated with recent perforation of viscus and surgery. Continue parental nutrition for now. Transition to tube feeds/enteral feeding if and when approved by general surgery ANEMIA; may need blood transfusion hemoglobin drops below 7. IV iron will not be ordered for now due to low-grade fevers Right renal calculus: Will require outpatient urology evaluation. No current urology coverage available at this hospital. Await UA. Discussed Plan of Care with patients family at bedside COMMENT/RELEVANT DATA Meds Current Medications Medications (Trade) Dose Ordered Sig/[place] Start Time Stop Time Status Last Admin Dose Admin Acetaminophen (Tylenol) 500 mg PRN Q6HRS PRN 05/13/19 08:30 Albumin Human 500 ml @ 250 mls/hr 1X ONCE 05/09/19 00:30 05/09/19 02:29 DC 05/09/19 00:10 250 MLS/HR Albuterol/ Ipratropium (Duoneb) 3 ml RTQID 05/10/19 08:00 05/20/19 07:15 3 ML Amino Acids/ Glycerin/ Electrolytes 1,000 ml @ 80 mls/hr [id number] 05/19/19 13:00 05/20/19 01:52 80 MLS/HR Bacitracin (Bacitracin Zinc Oint Pkt) 1 pkt DAILY 05/18/19 10:15 05/19/19 08:19 1 PKT Budesonide (Pulmicort) 0.5 mg RTBID 05/10/19 08:00 05/20/19 07:15 0.5 MG Bupivacaine HCl (Sensorcaine Mpf 0.5%) 30 ml STK-MED ONCE 05/08/19 21:39 05/08/19 21:39 DC Bupivacaine HCl/ Epinephrine Bitart (Sensorcaine-Epi 0.25%-[id number] Mpf) 30 ml 1X ONCE 05/08/19 20:00 05/08/19 20:01 DC 05/08/19 20:32 26 ML Carbidopa/Levodopa (Sinemet 25/100) 1 tab TID 05/12/19 14:00 05/12/19 13:40 DC Cefepime HCl (Maxipime) 2 gm Q8HRS 05/14/19 12:00 05/18/19 08:18 DC 05/18/19 06:25 2 GM Clonidine HCl (Catapres) 0.1 mg PRN Q1HR PRN 05/13/19 08:30 Daptomycin 570 mg/ Sodium Chloride 50 ml @ 100 mls/hr Q24H 05/14/19 11:30 05/20/19 08:07 DC 05/19/19 13:21 100 MLS/HR Dexamethasone Sodium Phosphate (Decadron) 4 mg STK-MED ONCE 05/08/19 19:34 05/08/19 19:34 DC Dextrose (Dextrose 50%-Water Syringe) 12.5 gm PRN Q15MIN PRN 05/16/19 13:15 Dextrose/Sodium Chloride 1,000 ml @ 150 mls/hr Q6H40M 05/09/19 08:45 05/09/19 18:30 DC 05/09/19 12:28 150 MLS/HR Diphenhydramine HCl (Benadryl) 25 mg 1X ONCE 05/08/19 17:00 05/08/19 17:01 DC 05/08/19 16:51 25 MG Dobutamine HCl/ Dextrose 250 ml @ 15.75 mls/ hr CONT PRN 05/09/19 12:45 05/12/19 13:06 DC Ephedrine Sulfate (ePHEDrine PF IN SALINE SYRINGE) 50 mg STK-MED ONCE 05/08/19 20:36 05/08/19 20:36 DC Epinephrine HCl (Adrenalin) 1 mg STK-MED ONCE 05/08/19 21:39 05/08/19 21:39 DC Fentanyl Citrate (Fentanyl 2ml Vial) 50 mcg 1X ONCE 05/15/19 14:30 05/15/19 14:38 DC 05/15/19 14:30 50 MCG Fluconazole/ Sodium Chloride 100 ml @ 100 mls/hr Q24H 05/08/19 22:00 05/14/19 10:28 DC 05/13/19 21:14 100 MLS/HR Flumazenil (Romazicon) 0.5 mg STK-MED ONCE 05/15/19 13:47 05/15/19 13:47 DC Gabapentin (Neurontin) 300 mg PRN QHS PRN 05/12/19 17:45 05/12/19 20:53 300 MG Glycopyrrolate (Robinul) 1 mg STK-MED ONCE 05/08/19 21:27 05/08/19 21:27 DC Haloperidol Lactate (Haldol Inj) 2.5 mg PRN Q6HRS PRN 05/19/19 08:00 05/20/19 01:51 2.5 MG Heparin Sodium (Porcine) (Heparin Sodium) 5,000 unit BID 05/11/19 10:00 05/20/19 08:46 5,000 UNIT Hydralazine HCl (Apresoline Inj) 10 mg PRN Q4HRS PRN 05/11/19 11:45 Hydromorphone HCl (Dilaudid) 0.5 mg PRN Q2HR PRN 05/19/19 08:00 05/20/19 10:20 0.5 MG Info (CONTRAST GIVEN -- Rx MONITORING) 1 each PRN DAILY PRN 05/14/19 09:00 05/16/19 08:59 DC Info (Tpn Per Pharmacy) 1 each PRN DAILY PRN 05/14/19 16:00 05/19/19 11:20 DC 05/18/19 11:41 1 EACH Insulin Glargine (Lantus Syringe) 10 unit ONCE STAT 05/18/19 07:47 05/18/19 07:51 DC 05/18/19 07:47 10 UNIT Insulin Human Lispro (HumaLOG VIAL for OP,RR ONLY) 0-10 units PRN Q1HR PRN 05/08/19 19:45 05/08/19 23:59 DC Insulin Human Lispro (HumaLOG) 0-9 UNITS Q6HRS 05/16/19 18:00 05/19/19 13:23 5 UNITS Insulin Human Regular (HumuLIN R VIAL) 8 unit 1X ONCE 05/16/19 13:15 05/16/19 13:22 DC 05/16/19 13:36 8 UNIT Insulin Human Regular 150 unit/ Sodium Chloride 151.5 ml @ 0 mls/hr CONT PRN 05/08/19 23:00 05/12/19 13:06 DC 05/08/19 23:03 5 MLS/HR Iohexol (Omnipaque 240 Mg/ml) 30 ml 1X ONCE 05/14/19 08:45 05/14/19 08:48 DC 05/14/19 08:45 30 ML Iohexol (Omnipaque 300 Mg/ml) 60 ml 1X ONCE 05/14/19 08:45 05/14/19 08:48 DC 05/14/19 08:45 60 ML Iohexol (Omnipaque 350 Mg/ml) 90 ml 1X ONCE 05/08/19 17:30 05/08/19 17:31 DC 05/08/19 17:45 90 ML Ketamine HCl (Ketamine) 50 mg STK-MED ONCE 05/08/19 20:12 05/08/19 20:12 DC Labetalol HCl (Normodyne Iv Push) 10 mg PRN Q2HR PRN 05/17/19 08:30 Lacosamide 100 mg/ Dextrose 60 ml @ 120 mls/hr BID 05/18/19 15:00 05/20/19 08:36 120 MLS/HR Lactobacillus Rhamnosus (Culturelle) 1 cap BID 05/12/19 21:00 05/14/19 21:08 1 CAP Lidocaine HCl (Buffered Lidocaine 1%) 4 ml 1X ONCE 05/15/19 14:30 05/15/19 14:38 DC 05/15/19 14:30 4 ML Lidocaine HCl (Lidocaine Pf 2% Vial) 5 ml STK-MED ONCE 05/08/19 19:34 05/08/19 19:34 DC Lisinopril (Prinivil) 10 mg DAILY 05/13/19 09:00 05/16/19 10:07 DC 05/14/19 09:14 10 MG Lorazepam (Ativan Inj) 1 mg PRN Q4HRS PRN 05/19/19 08:00 05/19/19 16:19 DC 05/19/19 12:38 1 MG Meropenem 500 mg/ Sodium Chloride 50 ml @ 100 mls/hr Q6HRS 05/18/19 09:00 05/20/19 05:13 100 MLS/HR Metoclopramide HCl (Reglan Vial) 10 mg 1X ONCE 05/08/19 17:00 05/08/19 17:01 DC 05/08/19 16:51 10 MG Metronidazole 100 ml @ 100 mls/hr Q8HRS 05/14/19 14:00 05/18/19 08:18 DC 05/18/19 06:28 100 MLS/HR Micafungin Sodium 100 mg/Dextrose 100 ml @ 100 mls/hr Q24H 05/14/19 11:00 05/20/19 08:07 DC 05/19/19 11:32 100 MLS/HR Midazolam HCl (Versed) 1 mg 1X ONCE 05/15/19 14:30 05/15/19 14:38 DC 05/15/19 14:30 1 MG Multi-Ingredient Ointment (Analgesic [place]) 1 jazlyn PRN QID PRN 05/11/19 11:30 Naloxone HCl (Narcan) 0.4 mg STK-MED ONCE 05/15/19 13:47 05/15/19 13:47 DC Neostigmine Methylsulfate (Neostigmine Methylsulfate) 5 mg STK-MED ONCE 05/08/19 21:27 05/08/19 21:27 DC Norepinephrine Bitartrate 250 ml @ 19.688 mls/ hr CONT PRN 05/09/19 12:45 Cancel Ondansetron HCl (Zofran) 4 mg PRN Q6HRS PRN 05/13/19 08:30 UNV Pantoprazole Sodium (PROTONIX VIAL for IV PUSH) 40 mg DAILYAC 05/17/19 13:00 05/20/19 05:11 40 MG Pantoprazole Sodium (Protonix) 40 mg DAILYAC 05/12/19 09:00 05/17/19 11:29 DC 05/14/19 06:04 40 MG Phenol (Chloraseptic) 1 spray PRN Q2HR PRN 05/11/19 11:30 05/11/19 13:12 1 SPRAY Phenylephrine HCl (PHENYLEPHRINE in 0.9% NACL PF) 1 mg STK-MED ONCE 05/08/19 20:33 05/08/19 20:33 DC Piperacillin Sod/ Tazobactam Sod 3.375 gm/Sodium Chloride 50 ml @ 100 mls/hr Q6HRS 05/09/19 00:00 05/14/19 10:28 DC 05/14/19 05:49 100 MLS/HR Potassium Phosphate 13.6 mmol/Magnesium Sulfate 10 meq/ Calcium Gluconate 10 meq/ Multivitamins 10 ml/Chromium/ Copper/Manganese/ Seleni/Zn 1 ml/ Total Parenteral Nutrition/Amino Acids/Dextrose/ Fat Emulsion Intravenous 1,512 ml @ 63 mls/hr TPN CONT 05/18/19 22:00 05/19/19 13:00 DC 05/18/19 22:35 63 MLS/HR Primidone (Mysoline) 25 mg BID 05/12/19 14:30 05/14/19 21:08 25 MG Prochlorperazine Edisylate (Compazine) 5 mg PACU PRN PRN 05/08/19 19:45 05/08/19 23:59 DC Propofol 20 ml @ As Directed STK-MED ONCE 05/08/19 19:34 05/08/19 19:34 DC Ringer's Solution 1,000 ml @ 30 mls/hr Q24H 05/08/19 20:00 05/09/19 01:00 DC 05/08/19 23:06 30 MLS/HR Rocuronium Donna (Zemuron) 50 mg STK-MED ONCE 05/08/19 19:34 05/08/19 19:34 DC Sevoflurane (Ultane) 60 ml STK-MED ONCE 05/08/19 21:44 05/08/19 21:44 DC Simvastatin (Zocor) 10 mg QHS 05/12/19 21:00 05/14/19 21:08 10 MG Sodium Chloride 1,000 ml @ 75 mls/hr [id number] 05/19/19 16:30 05/20/19 10:57 DC 05/20/19 05:13 75 MLS/HR Sodium Chloride 60 meq/Potassium Chloride 30 meq/ Potassium Phosphate 13.6 mmol/Magnesium Sulfate 10 meq/ Calcium Gluconate 10 meq/ Multivitamins 10 ml/Chromium/ Copper/Manganese/ Seleni/Zn 1 ml/ Total Parenteral Nutrition/Amino Acids/Dextrose/ Fat Emulsion Intravenous 1,512 ml @ 63 mls/hr TPN CONT 05/17/19 22:00 05/18/19 21:59 DC 05/17/19 23:13 63 MLS/HR Sodium Chloride 90 meq/Potassium Chloride 50 meq/ Potassium Phosphate 13.6 mmol/Magnesium Sulfate 10 meq/ Calcium Gluconate 10 meq/ Multivitamins 10 ml/Chromium/ Copper/Manganese/ Seleni/Zn 1 ml/ Total Parenteral Nutrition/Amino Acids/Dextrose/ Fat Emulsion Intravenous 1,512 ml @ 63 mls/hr TPN CONT 05/16/19 22:00 05/17/19 21:59 DC 05/16/19 21:56 63 MLS/HR Succinylcholine Chloride (Anectine) 200 mg STK-MED ONCE 05/08/19 19:34 05/08/19 19:34 DC Tramadol HCl (Ultram) 50 mg PRN Q6HRS PRN 05/13/19 08:30 05/19/19 16:19 DC 05/14/19 04:27 50 MG Venlafaxine HCl (Effexor Xr) 37.5 mg BID 05/13/19 09:00 05/13/19 08:33 DC Venlafaxine HCl (Effexor) 75 mg DAILY 05/12/19 13:30 05/12/19 14:20 DC 05/12/19 13:34 75 MG Lab Laboratory Tests Test 05/19/19 12:46 05/19/19 16:30 05/19/19 17:17 05/19/19 21:39 Glucose (Fingerstick) 255 mg/dL (70-99) 159 mg/dL (70-99) 199 mg/dL (70-99) O2 Saturation 94 % (92-99) Arterial Blood pH 7.40 (7.35-7.45) Arterial Blood pCO2 at Patient Temp 27 mmHg (35-46) Arterial Blood pO2 at Patient Temp 75 mmHg (65-108) Arterial Blood HCO3 17 mmol/L (21-28) Arterial Blood Base Excess -7 mmol/L (-3-3) FiO2 28% Test 05/20/19 05:05 05/20/19 05:58 White Blood Count 10.3 x10^3/uL (4.0-11.0) Red Blood Count 2.61 x10^6/uL (4.30-5.70) Hemoglobin 8.3 g/dL (13.0-17.5) Hematocrit 24.9 % (39.0-53.0) Mean Corpuscular Volume 96 fL (79-100) Mean Corpuscular Hemoglobin 32 pg (25-35) Mean Corpuscular Hemoglobin Concent 33 g/dL (31-37) Red Cell Distribution Width 14.5 % (11.5-14.5) Platelet Count 433 x10^3/uL (140-400) Neutrophils (%) (Auto) 75 % (31-73) Lymphocytes (%) (Auto) 12 % (24-48) Monocytes (%) (Auto) 10 % (0-9) Eosinophils (%) (Auto) 3 % (0-3) Basophils (%) (Auto) 1 % (0-3) Neutrophils # (Auto) 7.7 x10^3/uL (1.8-7.7) Lymphocytes # (Auto) 1.3 x10^3/uL (1.0-4.8) Monocytes # (Auto) 1.0 x10^3/uL (0.0-1.1) Eosinophils # (Auto) 0.3 x10^3/uL (0.0-0.7) Basophils # (Auto) 0.1 x10^3/uL (0.0-0.2) Sodium Level 148 mmol/L (136-145) Potassium Level 4.6 mmol/L (3.5-5.1) Chloride Level 114 mmol/L (98-107) Carbon Dioxide Level 22 mmol/L (21-32) Anion Gap 12 (6-14) Blood Urea Nitrogen 29 mg/dL (8-26) Creatinine 1.4 mg/dL (0.7-1.3) Estimated GFR (Cockcroft-Gault) 49.7 Glucose Level 198 mg/dL (70-99) Calcium Level 9.1 mg/dL (8.5-10.1) Glucose (Fingerstick) 192 mg/dL (70-99) Results All relevant outside records, renal labs, imaging studies, telemetry/EKG's were reviewed. Other IMPRESSION: 1. No acute intracranial findings. 2. 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
--- NOTE | 2019-05-20 11:31 | NUR ---
SW following. Chart reviewed, discussed with RN, pt has temp today, possibly blood in NG tube. SW faxed updates to [facility]. Possible discharge to [facility] tomorrow (05/21/19). SW will continue to follow.
--- NOTE | 2019-05-20 11:47 | PDOC ---
SURGICAL PROGRESS NOTE Subjective restless today confusion, mitts Vital Signs Vital Signs Date Time Temp Pulse Resp B/P (MAP) Pulse Ox O2 Delivery O2 Flow Rate FiO2 05/20/19 11:25 95 Nasal Cannula 2.0 05/20/19 11:00 99.9 91 16 155/77 (103) 99.9 I&O Intake and Output 05/20/19 07:00 Intake Total 0 ml Output Total 1340 ml Balance -1340 ml Intake Oral 0 ml Gastric Drainage Total 900 ml Drainage Total 440 ml # Voids 8 General: No acute distress, Other (confusion) HEENT: Other (NG) Abdomen: Soft, Other (ir drain serous, thang brownish drainage, dressing dry) Labs Laboratory Tests Test 05/18/19 12:37 05/18/19 17:00 05/18/19 17:41 05/18/19 23:14 Glucose (Fingerstick) 244 mg/dL (70-99) 185 mg/dL (70-99) 290 mg/dL (70-99) Ionized Calcium 1.26 mmol/L (1.13-1.32) Creatine Kinase 189 U/L (39-308) Vitamin B12 Level 1462 pg/mL (247-911) Thyroid Stimulating Hormone (TSH) 3.714 uIU/mL (0.358-3.74) Test 05/19/19 04:20 05/19/19 05:50 05/19/19 06:14 05/19/19 12:46 White Blood Count 12.0 x10^3/uL (4.0-11.0) Red Blood Count 2.40 x10^6/uL (4.30-5.70) Hemoglobin 7.8 g/dL (13.0-17.5) Hematocrit 24.7 % (39.0-53.0) Mean Corpuscular Volume 103 fL (79-100) Mean Corpuscular Hemoglobin 32 pg (25-35) Mean Corpuscular Hemoglobin Concent 32 g/dL (31-37) Red Cell Distribution Width 16.5 % (11.5-14.5) Platelet Count 403 x10^3/uL (140-400) Neutrophils (%) (Auto) 76 % (31-73) Lymphocytes (%) (Auto) 12 % (24-48) Monocytes (%) (Auto) 11 % (0-9) Eosinophils (%) (Auto) 1 % (0-3) Basophils (%) (Auto) 1 % (0-3) Neutrophils # (Auto) 9.1 x10^3/uL (1.8-7.7) Lymphocytes # (Auto) 1.4 x10^3/uL (1.0-4.8) Monocytes # (Auto) 1.3 x10^3/uL (0.0-1.1) Eosinophils # (Auto) 0.2 x10^3/uL (0.0-0.7) Basophils # (Auto) 0.1 x10^3/uL (0.0-0.2) Sodium Level 150 mmol/L (136-145) Potassium Level 4.9 mmol/L (3.5-5.1) Chloride Level 117 mmol/L (98-107) Carbon Dioxide Level 21 mmol/L (21-32) Anion Gap 12 (6-14) Blood Urea Nitrogen 33 mg/dL (8-26) Creatinine 1.5 mg/dL (0.7-1.3) Estimated GFR (Cockcroft-Gault) 45.9 BUN/Creatinine Ratio 22 (6-20) Glucose Level 232 mg/dL (70-99) Calcium Level 8.8 mg/dL (8.5-10.1) Phosphorus Level 3.4 mg/dL (2.6-4.7) Magnesium Level 1.9 mg/dL (1.8-2.4) Iron Level 27 ug/dL (65-175) Total Iron Binding Capacity 172 ug/dL (250-450) Iron Saturation 16 % (15-34) Ferritin 635 ng/mL (26-388) Total Bilirubin 0.4 mg/dL (0.2-1.0) Aspartate Amino Transf (AST/SGOT) 23 U/L (15-37) Alanine Aminotransferase (ALT/SGPT) 25 U/L (16-63) Alkaline Phosphatase 92 U/L (46-116) Total Protein 6.2 g/dL (6.4-8.2) Albumin 2.0 g/dL (3.4-5.0) Albumin/Globulin Ratio 0.5 (1.0-1.7) Glucose (Fingerstick) 232 mg/dL (70-99) 255 mg/dL (70-99) Test 05/19/19 16:30 05/19/19 17:17 05/19/19 21:39 05/20/19 05:05 O2 Saturation 94 % (92-99) Arterial Blood pH 7.40 (7.35-7.45) Arterial Blood pCO2 at Patient Temp 27 mmHg (35-46) Arterial Blood pO2 at Patient Temp 75 mmHg (65-108) Arterial Blood HCO3 17 mmol/L (21-28) Arterial Blood Base Excess -7 mmol/L (-3-3) FiO2 28% Glucose (Fingerstick) 159 mg/dL (70-99) 199 mg/dL (70-99) White Blood Count 10.3 x10^3/uL (4.0-11.0) Red Blood Count 2.61 x10^6/uL (4.30-5.70) Hemoglobin 8.3 g/dL (13.0-17.5) Hematocrit 24.9 % (39.0-53.0) Mean Corpuscular Volume 96 fL (79-100) Mean Corpuscular Hemoglobin 32 pg (25-35) Mean Corpuscular Hemoglobin Concent 33 g/dL (31-37) Red Cell Distribution Width 14.5 % (11.5-14.5) Platelet Count 433 x10^3/uL (140-400) Neutrophils (%) (Auto) 75 % (31-73) Lymphocytes (%) (Auto) 12 % (24-48) Monocytes (%) (Auto) 10 % (0-9) Eosinophils (%) (Auto) 3 % (0-3) Basophils (%) (Auto) 1 % (0-3) Neutrophils # (Auto) 7.7 x10^3/uL (1.8-7.7) Lymphocytes # (Auto) 1.3 x10^3/uL (1.0-4.8) Monocytes # (Auto) 1.0 x10^3/uL (0.0-1.1) Eosinophils # (Auto) 0.3 x10^3/uL (0.0-0.7) Basophils # (Auto) 0.1 x10^3/uL (0.0-0.2) Sodium Level 148 mmol/L (136-145) Potassium Level 4.6 mmol/L (3.5-5.1) Chloride Level 114 mmol/L (98-107) Carbon Dioxide Level 22 mmol/L (21-32) Anion Gap 12 (6-14) Blood Urea Nitrogen 29 mg/dL (8-26) Creatinine 1.4 mg/dL (0.7-1.3) Estimated GFR (Cockcroft-Gault) 49.7 Glucose Level 198 mg/dL (70-99) Calcium Level 9.1 mg/dL (8.5-10.1) Test 05/20/19 05:58 Glucose (Fingerstick) 192 mg/dL (70-99) Laboratory Tests Test 05/19/19 12:46 05/19/19 16:30 05/19/19 17:17 05/19/19 21:39 Glucose (Fingerstick) 255 mg/dL (70-99) 159 mg/dL (70-99) 199 mg/dL (70-99) O2 Saturation 94 % (92-99) Arterial Blood pH 7.40 (7.35-7.45) Arterial Blood pCO2 at Patient Temp 27 mmHg (35-46) Arterial Blood pO2 at Patient Temp 75 mmHg (65-108) Arterial Blood HCO3 17 mmol/L (21-28) Arterial Blood Base Excess -7 mmol/L (-3-3) FiO2 28% Test 05/20/19 05:05 05/20/19 05:58 White Blood Count 10.3 x10^3/uL (4.0-11.0) Red Blood Count 2.61 x10^6/uL (4.30-5.70) Hemoglobin 8.3 g/dL (13.0-17.5) Hematocrit 24.9 % (39.0-53.0) Mean Corpuscular Volume 96 fL (79-100) Mean Corpuscular Hemoglobin 32 pg (25-35) Mean Corpuscular Hemoglobin Concent 33 g/dL (31-37) Red Cell Distribution Width 14.5 % (11.5-14.5) Platelet Count 433 x10^3/uL (140-400) Neutrophils (%) (Auto) 75 % (31-73) Lymphocytes (%) (Auto) 12 % (24-48) Monocytes (%) (Auto) 10 % (0-9) Eosinophils (%) (Auto) 3 % (0-3) Basophils (%) (Auto) 1 % (0-3) Neutrophils # (Auto) 7.7 x10^3/uL (1.8-7.7) Lymphocytes # (Auto) 1.3 x10^3/uL (1.0-4.8) Monocytes # (Auto) 1.0 x10^3/uL (0.0-1.1) Eosinophils # (Auto) 0.3 x10^3/uL (0.0-0.7) Basophils # (Auto) 0.1 x10^3/uL (0.0-0.2) Sodium Level 148 mmol/L (136-145) Potassium Level 4.6 mmol/L (3.5-5.1) Chloride Level 114 mmol/L (98-107) Carbon Dioxide Level 22 mmol/L (21-32) Anion Gap 12 (6-14) Blood Urea Nitrogen 29 mg/dL (8-26) Creatinine 1.4 mg/dL (0.7-1.3) Estimated GFR (Cockcroft-Gault) 49.7 Glucose Level 198 mg/dL (70-99) Calcium Level 9.1 mg/dL (8.5-10.1) Glucose (Fingerstick) 192 mg/dL (70-99) Problem List Problems Medical Problems: (1) Perforated intestine, nontraumatic Status: Acute Assessment/Plan drains, abx, ng will review with FABI Hopper APRN May 20, 2019 11:47
[2019-05-20 12:52] LABS: BILIRUBIN,URINE NEGATIVE (NEG); CLARITY,URINE CLEAR; COLOR,URINE YELLOW; NITRITE,URINE NEGATIVE (NEG); PROTEIN,URINE 30 mg/dL (NEG-TRACE); UROBILINOGEN,URINE 0.2 mg/dL (0.2 mg/dL)
[2019-05-20 13:01] LABS: AMORPHOUS SEDIMENT,UR PRESENT /HPF; GRANULAR CASTS,URINE FEW /HPF; HYALINE CASTS, URINE MANY /HPF
[2019-05-20 13:02] LABS: BACTERIA,URINE 0 /HPF (0-FEW); WBC,URINE 0 /HPF (0-4)
[2019-05-20 15:00] VITALS: BP 128/53
--- NOTE | 2019-05-20 15:37 | PDOC ---
PULMONARY PROGRESS NOTES Subjective PT NOT CONFUSED OR AGITATED TODAY KNEW HIS NAME NOT MORE SOA Vitals Vital Signs Date Time Temp Pulse Resp B/P (MAP) Pulse Ox O2 Delivery O2 Flow Rate FiO2 05/20/19 15:00 98.6 95 18 128/53 (78) 96 Nasal Cannula 2.0 98.6 ROS: No Nausea, No Chest Pain, No Increase Cough General: Confused HEENT: Other Lungs: Clear, Other (deminished bs) Cardiovascular: S1, S2 Abdomen: Soft, Non-tender, Other (no mass) Extremities: No Edema Skin: Warm Labs Laboratory Tests Test 05/18/19 17:00 05/18/19 17:41 05/18/19 23:14 05/19/19 04:20 Ionized Calcium 1.26 mmol/L (1.13-1.32) Creatine Kinase 189 U/L (39-308) Vitamin B12 Level 1462 pg/mL (247-911) Thyroid Stimulating Hormone (TSH) 3.714 uIU/mL (0.358-3.74) Glucose (Fingerstick) 185 mg/dL (70-99) 290 mg/dL (70-99) White Blood Count 12.0 x10^3/uL (4.0-11.0) Red Blood Count 2.40 x10^6/uL (4.30-5.70) Hemoglobin 7.8 g/dL (13.0-17.5) Hematocrit 24.7 % (39.0-53.0) Mean Corpuscular Volume 103 fL (79-100) Mean Corpuscular Hemoglobin 32 pg (25-35) Mean Corpuscular Hemoglobin Concent 32 g/dL (31-37) Red Cell Distribution Width 16.5 % (11.5-14.5) Platelet Count 403 x10^3/uL (140-400) Neutrophils (%) (Auto) 76 % (31-73) Lymphocytes (%) (Auto) 12 % (24-48) Monocytes (%) (Auto) 11 % (0-9) Eosinophils (%) (Auto) 1 % (0-3) Basophils (%) (Auto) 1 % (0-3) Neutrophils # (Auto) 9.1 x10^3/uL (1.8-7.7) Lymphocytes # (Auto) 1.4 x10^3/uL (1.0-4.8) Monocytes # (Auto) 1.3 x10^3/uL (0.0-1.1) Eosinophils # (Auto) 0.2 x10^3/uL (0.0-0.7) Basophils # (Auto) 0.1 x10^3/uL (0.0-0.2) Test 05/19/19 05:50 05/19/19 06:14 05/19/19 12:46 05/19/19 16:30 Sodium Level 150 mmol/L (136-145) Potassium Level 4.9 mmol/L (3.5-5.1) Chloride Level 117 mmol/L (98-107) Carbon Dioxide Level 21 mmol/L (21-32) Anion Gap 12 (6-14) Blood Urea Nitrogen 33 mg/dL (8-26) Creatinine 1.5 mg/dL (0.7-1.3) Estimated GFR (Cockcroft-Gault) 45.9 BUN/Creatinine Ratio 22 (6-20) Glucose Level 232 mg/dL (70-99) Calcium Level 8.8 mg/dL (8.5-10.1) Phosphorus Level 3.4 mg/dL (2.6-4.7) Magnesium Level 1.9 mg/dL (1.8-2.4) Iron Level 27 ug/dL (65-175) Total Iron Binding Capacity 172 ug/dL (250-450) Iron Saturation 16 % (15-34) Ferritin 635 ng/mL (26-388) Total Bilirubin 0.4 mg/dL (0.2-1.0) Aspartate Amino Transf (AST/SGOT) 23 U/L (15-37) Alanine Aminotransferase (ALT/SGPT) 25 U/L (16-63) Alkaline Phosphatase 92 U/L (46-116) Total Protein 6.2 g/dL (6.4-8.2) Albumin 2.0 g/dL (3.4-5.0) Albumin/Globulin Ratio 0.5 (1.0-1.7) Glucose (Fingerstick) 232 mg/dL (70-99) 255 mg/dL (70-99) O2 Saturation 94 % (92-99) Arterial Blood pH 7.40 (7.35-7.45) Arterial Blood pCO2 at Patient Temp 27 mmHg (35-46) Arterial Blood pO2 at Patient Temp 75 mmHg (65-108) Arterial Blood HCO3 17 mmol/L (21-28) Arterial Blood Base Excess -7 mmol/L (-3-3) FiO2 28% Test 05/19/19 17:17 05/19/19 21:39 05/20/19 05:05 05/20/19 05:58 Glucose (Fingerstick) 159 mg/dL (70-99) 199 mg/dL (70-99) 192 mg/dL (70-99) White Blood Count 10.3 x10^3/uL (4.0-11.0) Red Blood Count 2.61 x10^6/uL (4.30-5.70) Hemoglobin 8.3 g/dL (13.0-17.5) Hematocrit 24.9 % (39.0-53.0) Mean Corpuscular Volume 96 fL (79-100) Mean Corpuscular Hemoglobin 32 pg (25-35) Mean Corpuscular Hemoglobin Concent 33 g/dL (31-37) Red Cell Distribution Width 14.5 % (11.5-14.5) Platelet Count 433 x10^3/uL (140-400) Neutrophils (%) (Auto) 75 % (31-73) Lymphocytes (%) (Auto) 12 % (24-48) Monocytes (%) (Auto) 10 % (0-9) Eosinophils (%) (Auto) 3 % (0-3) Basophils (%) (Auto) 1 % (0-3) Neutrophils # (Auto) 7.7 x10^3/uL (1.8-7.7) Lymphocytes # (Auto) 1.3 x10^3/uL (1.0-4.8) Monocytes # (Auto) 1.0 x10^3/uL (0.0-1.1) Eosinophils # (Auto) 0.3 x10^3/uL (0.0-0.7) Basophils # (Auto) 0.1 x10^3/uL (0.0-0.2) Sodium Level 148 mmol/L (136-145) Potassium Level 4.6 mmol/L (3.5-5.1) Chloride Level 114 mmol/L (98-107) Carbon Dioxide Level 22 mmol/L (21-32) Anion Gap 12 (6-14) Blood Urea Nitrogen 29 mg/dL (8-26) Creatinine 1.4 mg/dL (0.7-1.3) Estimated GFR (Cockcroft-Gault) 49.7 Glucose Level 198 mg/dL (70-99) Calcium Level 9.1 mg/dL (8.5-10.1) Test 05/20/19 11:50 05/20/19 12:45 Glucose (Fingerstick) 170 mg/dL (70-99) Urine Collection Type Unknown Urine Color Yellow Urine Clarity Clear Urine pH 5.0 Urine Specific [place] 1.015 Urine Protein 30 mg/dL (NEG-TRACE) Urine Glucose (UA) 100 mg/dL (NEG) Urine Ketones (Stick) Negative mg/dL (NEG) Urine Blood Moderate (NEG) Urine Nitrite Negative (NEG) Urine Bilirubin Negative (NEG) Urine Urobilinogen Dipstick 0.2 mg/dL (0.2 mg/dL) Urine Leukocyte Esterase Negative (NEG) Urine RBC 3-5 /HPF (0-2) Urine WBC 0 /HPF (0-4) Urine Transitional Epithelial Cells Few /LPF Urine Amorphous Sediment Present /HPF Urine Bacteria 0 /HPF (0-FEW) Urine Hyaline Casts Many /HPF Urine Granular Casts Few /HPF Urine Mucus Marked /LPF Laboratory Tests Test 05/19/19 16:30 05/19/19 17:17 05/19/19 21:39 05/20/19 05:05 O2 Saturation 94 % (92-99) Arterial Blood pH 7.40 (7.35-7.45) Arterial Blood pCO2 at Patient Temp 27 mmHg (35-46) Arterial Blood pO2 at Patient Temp 75 mmHg (65-108) Arterial Blood HCO3 17 mmol/L (21-28) Arterial Blood Base Excess -7 mmol/L (-3-3) FiO2 28% Glucose (Fingerstick) 159 mg/dL (70-99) 199 mg/dL (70-99) White Blood Count 10.3 x10^3/uL (4.0-11.0) Red Blood Count 2.61 x10^6/uL (4.30-5.70) Hemoglobin 8.3 g/dL (13.0-17.5) Hematocrit 24.9 % (39.0-53.0) Mean Corpuscular Volume 96 fL (79-100) Mean Corpuscular Hemoglobin 32 pg (25-35) Mean Corpuscular Hemoglobin Concent 33 g/dL (31-37) Red Cell Distribution Width 14.5 % (11.5-14.5) Platelet Count 433 x10^3/uL (140-400) Neutrophils (%) (Auto) 75 % (31-73) Lymphocytes (%) (Auto) 12 % (24-48) Monocytes (%) (Auto) 10 % (0-9) Eosinophils (%) (Auto) 3 % (0-3) Basophils (%) (Auto) 1 % (0-3) Neutrophils # (Auto) 7.7 x10^3/uL (1.8-7.7) Lymphocytes # (Auto) 1.3 x10^3/uL (1.0-4.8) Monocytes # (Auto) 1.0 x10^3/uL (0.0-1.1) Eosinophils # (Auto) 0.3 x10^3/uL (0.0-0.7) Basophils # (Auto) 0.1 x10^3/uL (0.0-0.2) Sodium Level 148 mmol/L (136-145) Potassium Level 4.6 mmol/L (3.5-5.1) Chloride Level 114 mmol/L (98-107) Carbon Dioxide Level 22 mmol/L (21-32) Anion Gap 12 (6-14) Blood Urea Nitrogen 29 mg/dL (8-26) Creatinine 1.4 mg/dL (0.7-1.3) Estimated GFR (Cockcroft-Gault) 49.7 Glucose Level 198 mg/dL (70-99) Calcium Level 9.1 mg/dL (8.5-10.1) Test 05/20/19 05:58 05/20/19 11:50 05/20/19 12:45 Glucose (Fingerstick) 192 mg/dL (70-99) 170 mg/dL (70-99) Urine Collection Type Unknown Urine Color Yellow Urine Clarity Clear Urine pH 5.0 Urine Specific [place] 1.015 Urine Protein 30 mg/dL (NEG-TRACE) Urine Glucose (UA) 100 mg/dL (NEG) Urine Ketones (Stick) Negative mg/dL (NEG) Urine Blood Moderate (NEG) Urine Nitrite Negative (NEG) Urine Bilirubin Negative (NEG) Urine Urobilinogen Dipstick 0.2 mg/dL (0.2 mg/dL) Urine Leukocyte Esterase Negative (NEG) Urine RBC 3-5 /HPF (0-2) Urine WBC 0 /HPF (0-4) Urine Transitional Epithelial Cells Few /LPF Urine Amorphous Sediment Present /HPF Urine Bacteria 0 /HPF (0-FEW) Urine Hyaline Casts Many /HPF Urine Granular Casts Few /HPF Urine Mucus Marked /LPF Medications Active Scripts Medications Dose Route/Sig Max Daily Dose Days Date Category Venlafaxine Hcl 75 Mg Tablet Unknown Dose PO DAILY 02/18/19 Reported Simvastatin 10 Mg Tablet 10 Mg PO DAILY 02/18/19 Reported Metformin Hcl 1,000 Mg Tablet 1,000 Mg PO BIDWMEALS 02/18/19 Reported Meloxicam 15 Mg Tablet Unknown Dose PO DAILY 02/18/19 Reported Lisinopril 10 Mg Tablet Unknown Dose PO DAILY 02/18/19 Reported Humalog (Insulin Lispro) 100 Unit/1 Ml Cartridge 100 Unit SQ 02/18/19 Reported Sinemet 25-100 Mg Tablet (Carbidopa/Levodopa) 1 Each Tablet 1 Tab PO TID 02/18/19 Reported Impression . IMPRESSION: 1. EXPECTED RESP FAILURE status post repair of a perforated duodenal ulcer. 2. Status post laparoscopy with open laparotomy for closure of a duodenal ulcer with [place] patch. 05/08 3. Acute exacerbation of chronic obstructive pulmonary disease, resolving. 4. Tobacco dependence. 5. Hypertension. 6. Recent right shoulder repair. 7. Hypotension. 8. Fever. 9. Possible sepsis present upon admission. 10. CT-guided abdominal drain placement as described. 05/15 11. DELIRIUM IMPROVED Plan . SPOKE WITH TERA CLOUD/SB WILL CONTINUE CURRENT SUPPORT WILL NEED A REPEAT CT IN FUTURE CHECK ABG NOTED PULMONARY HYGIENE D/C SMOKING TG RAZO MD May 20, 2019 15:37
--- NOTE | 2019-05-20 16:06 | PDOC ---
PROGRESS NOTES Assessment Assessment Abnormal jerking like movements. Metabolic encephalopathy. ET. Agitation. Delirium. Bowel perforation s/p surgery. Fever. Hyperglycemia. DM. Renal failure. Anemia. HTN. HLD. COPD. Obesity. RECOMMENDATIONS/PLAN: Continue Vimpat 100 mg q12h. Treat medical and surgical diseases. Unable to perform MRI on him due to agitation and delirium. Discussed with his again at bedside on 05/20/19. HCT: No acute findings. EEG pending. History of Present Illness This is a 73-year-old white male patient was came to the ER of [facility] on 05/08/19 with complaints of severe abdominal pain, nausea, vomiting. He had a right shoulder surgery 2 days prior and has been on nonsteroidal anti-inflammatories for quite some time. Abdomen CT scan shows free air in the right upper quadrant with some perihepatic ascites. Neurology was request for a consultation on 05/18/19 due to abnormal movements, mental status changes, and confusion. 05/20/19: His mentation slightly improved. Past Medical History Cardiovascular: HTN Pulmonary: No pertinent hx GI: Gastritis, Peptic Ulcer disease Heme/Onc: No pertinent hx Hepatobiliary: No pertinent hx Psych: No pertinent hx Musculoskeletal: Other (shoulder pain) Rheumatologic: No pertinent hx Infectious disease: No pertinent hx ENT: No pertinent hx Renal/: Chronic renal insuff Endocrine: Diabetes Dermatology: No pertinent hx Past Surgical History Right shoulder surgery postop 2 days to this admission. Family History No Significant Social History ALCOHOL: rare Drugs: None Lives: with Family Allergies Coded Allergies: sulfamethoxazole (Verified Allergy, Severe, Altered Mental Status , 05/08/19) trimethoprim (Verified Allergy, Severe, Altered Mental Status , 05/08/19) Sulfa (Sulfonamide Antibiotics) (Verified Allergy, Intermediate, 02/18/19) ciprofloxacin (Verified Allergy, Unknown, rash, 05/08/19) codeine (Verified Allergy, Unknown, Rash, 05/08/19) MEDICATIONS: Refer to [facility] REVIEW OF SYSTEMS: Constitutional: Obesity. Head: No traumatic brain or head injury. Skin: No edema, or rash. Ear: No infection. Eyes: No vision loss or color blindness. Nose: No bleeding or purulent discharges. Hearing: Hearing decrease. Neck: No injury. Cardiac: HTN, HLD. Pulmonary: COPD. GI: Abdomen pain. Urinary/genital: UTI. Endocrinologic: Diabetes Mellitus, obesity. Skeletomuscular: Tremors. Neurological: see HP. Psychiatric: Denies drug use/abuse. Otherwise, not [id number] review of systems. PHYSICAL EXAMINATION: General appearance is in subacute distress. HEENT: Normocephalic and nontraumatic. Eyes, nose, ears, and throat are unremarkable. Neck is supple. No lymphadenopathy. No crepitus. Cardiovascular: S1, S2. Pulmonary: decreased to auscultation bilaterally. Abdomen: Bowel sounds are positive? Extremities: No rash, lesions, or edema. No restriction of range of motion NEUROLOGICAL EXAMINATION: Lethargic. Abnormal movements noted. Not oriented to time, place but knew his at bedside. PERRL. EOMI. CN: no focal findings. Muscle tone: Fluctuated. Muscle strength: Moves all extremities. DTR: 1+ Plantar reflex: Neutral response bilaterally Gait: not able to walk. Sensory exam: Withdrew to stimuli. Not able to access cerebellar signs. F-T-N test not performed due to not follow commands. Objective Objective Vital Signs Date Time Temp Pulse Resp B/P (MAP) Pulse Ox O2 Delivery O2 Flow Rate FiO2 05/20/19 15:00 98.6 95 18 128/53 (78) 96 Nasal Cannula 2.0 98.6 Intake and Output 05/20/19 07:00 Intake Total 0 ml Output Total 1340 ml Balance -1340 ml Intake Oral 0 ml Gastric Drainage Total 900 ml Drainage Total 440 ml # Voids 8 Vitals Signs Vitals VS - Last 72 Hours, by Label Date Time Temp Pulse Resp B/P (MAP) Pulse Ox O2 Delivery O2 Flow Rate FiO2 05/20/19 15:00 98.6 95 18 128/53 (78) 96 Nasal Cannula 2.0 98.6 05/20/19 11:25 95 Nasal Cannula 2.0 05/20/19 11:00 99.9 91 16 155/77 (103) 99 Room Air 99.9 05/20/19 11:00 Nasal Cannula 2.0 05/20/19 10:20 Nasal Cannula 2.0 05/20/19 07:15 95 Nasal Cannula 2.0 05/20/19 07:00 99.1 100 16 146/68 (94) 94 Room Air 99.1 05/20/19 03:00 99.5 70 22 108/40 (62) 95 Nasal Cannula 2.0 99.5 05/19/19 22:59 98.7 61 22 149/66 (93) 96 Nasal Cannula 3.0 98.7 05/19/19 20:00 Nasal Cannula 2.0 05/19/19 19:54 100 Nasal Cannula 2.0 05/19/19 19:00 99.6 93 22 151/71 (97) 95 Nasal Cannula 3.0 99.6 05/19/19 16:32 Nasal Cannula 2.0 05/19/19 15:55 100 Nasal Cannula 2.0 05/19/19 15:00 99.9 102 18 112/42 (65) 96 Nasal Cannula 3.0 99.9 05/19/19 11:03 100 Nasal Cannula 2.0 05/19/19 11:00 97.7 101 18 175/73 (107) Room Air 97.7 05/19/19 08:01 Nasal Cannula 2.0 05/19/19 07:45 Nasal Cannula 2.0 05/19/19 07:37 20 Nasal Cannula 2.0 05/19/19 07:07 20 Nasal Cannula 2.0 05/19/19 07:00 99.0 94 20 117/67 (84) 97 Nasal Cannula 2.0 99.0 Laboratory Laboratory Laboratory Tests Test 05/19/19 16:30 05/19/19 17:17 05/19/19 21:39 05/20/19 05:05 O2 Saturation 94 % (92-99) Arterial Blood pH 7.40 (7.35-7.45) Arterial Blood pCO2 at Patient Temp 27 mmHg (35-46) Arterial Blood pO2 at Patient Temp 75 mmHg (65-108) Arterial Blood HCO3 17 mmol/L (21-28) Arterial Blood Base Excess -7 mmol/L (-3-3) FiO2 28% Glucose (Fingerstick) 159 mg/dL (70-99) 199 mg/dL (70-99) White Blood Count 10.3 x10^3/uL (4.0-11.0) Red Blood Count 2.61 x10^6/uL (4.30-5.70) Hemoglobin 8.3 g/dL (13.0-17.5) Hematocrit 24.9 % (39.0-53.0) Mean Corpuscular Volume 96 fL (79-100) Mean Corpuscular Hemoglobin 32 pg (25-35) Mean Corpuscular Hemoglobin Concent 33 g/dL (31-37) Red Cell Distribution Width 14.5 % (11.5-14.5) Platelet Count 433 x10^3/uL (140-400) Neutrophils (%) (Auto) 75 % (31-73) Lymphocytes (%) (Auto) 12 % (24-48) Monocytes (%) (Auto) 10 % (0-9) Eosinophils (%) (Auto) 3 % (0-3) Basophils (%) (Auto) 1 % (0-3) Neutrophils # (Auto) 7.7 x10^3/uL (1.8-7.7) Lymphocytes # (Auto) 1.3 x10^3/uL (1.0-4.8) Monocytes # (Auto) 1.0 x10^3/uL (0.0-1.1) Eosinophils # (Auto) 0.3 x10^3/uL (0.0-0.7) Basophils # (Auto) 0.1 x10^3/uL (0.0-0.2) Sodium Level 148 mmol/L (136-145) Potassium Level 4.6 mmol/L (3.5-5.1) Chloride Level 114 mmol/L (98-107) Carbon Dioxide Level 22 mmol/L (21-32) Anion Gap 12 (6-14) Blood Urea Nitrogen 29 mg/dL (8-26) Creatinine 1.4 mg/dL (0.7-1.3) Estimated GFR (Cockcroft-Gault) 49.7 Glucose Level 198 mg/dL (70-99) Calcium Level 9.1 mg/dL (8.5-10.1) Test 05/20/19 05:58 05/20/19 11:50 05/20/19 12:45 Glucose (Fingerstick) 192 mg/dL (70-99) 170 mg/dL (70-99) Urine Collection Type Unknown Urine Color Yellow Urine Clarity Clear Urine pH 5.0 Urine Specific [place] 1.015 Urine Protein 30 mg/dL (NEG-TRACE) Urine Glucose (UA) 100 mg/dL (NEG) Urine Ketones (Stick) Negative mg/dL (NEG) Urine Blood Moderate (NEG) Urine Nitrite Negative (NEG) Urine Bilirubin Negative (NEG) Urine Urobilinogen Dipstick 0.2 mg/dL (0.2 mg/dL) Urine Leukocyte Esterase Negative (NEG) Urine RBC 3-5 /HPF (0-2) Urine WBC 0 /HPF (0-4) Urine Transitional Epithelial Cells Few /LPF Urine Amorphous Sediment Present /HPF Urine Bacteria 0 /HPF (0-FEW) Urine Hyaline Casts Many /HPF Urine Granular Casts Few /HPF Urine Mucus Marked /LPF Microbiology 05/15/19 AFB Specimen Processing Tissue - Final, Resulted 05/15/19 Acid Fast Bacilli Culture, Resulted Pending 05/15/19 Gram Stain - Final, Resulted 05/15/19 Fungal Culture, Resulted Pending 05/15/19 Fungal Culture Result 1, Resulted Pending Medication Medications Current Medications Sodium Chloride 1,000 ml @ 75 mls/hr [id number] IV Last administered on 05/20/19at 05:13; Start 05/19/19 at 16:30; Stop 05/20/19 at 10:57; Status DC Comment Review of Relevant I have reviewed the following items adriano (where applicable) has been applied. PATRICE LOVE MD May 20, 2019 16:06
[2019-05-20 19:53] VITALS: BP 126/75
[2019-05-20] MEDS: SIMVASTATIN 10 MG TABLET PO SCH (20:20)
[2019-05-20] MEDS: INSULIN GLARGINE SYRINGE. SQ SCH (21:27)
[2019-05-20 23:30] VITALS: BP 135/65
[2019-05-21 03:07] VITALS: BP 132/52
[2019-05-21] MEDS: AMINO AC 3%/ELECTROLYTE/GLYCER 1,000 ML IV SCH ×2 (04:47→16:51)
[2019-05-21] MEDS: PANTOPRAZOLE IV PUSH 40 MG VIAL. IVP SCH (04:48)
[2019-05-21] MEDS: MEROPENEM 500 MG in IV NORMAL SALINE 50ML 50 ML IV SCH ×3 (05:21→22:48)
[2019-05-21] MEDS: INSULIN LISPRO 300 UNITS/3 ML VIAL. SQ SCH ×4 (06:12→23:57)
[2019-05-21 07:00] VITALS: BP 157/70
[2019-05-21] MEDS: IPRATRPIUM/ALBUTEROL 0.5/2.5MG 3 ML NEBU. NEB SCH ×4 (07:09→19:29)
[2019-05-21] MEDS: BUDESONIDE 0.5 MG/2 ML NEBU. NEB SCH ×2 (07:09→19:29)
--- NOTE | 2019-05-21 07:34 | SNU/HH DC ---
DISCHARGE ORDERS DISCHARGE INFORMATION: DISCHARGE DATE: May 21, 2019 FINAL DIAGNOSIS Problems Medical Problems: (1) Perforated intestine, nontraumatic Status: Acute CONDITION ON DISCHARGE: Stable CODE STATUS: Code Status: Full ASSISTED: SNF STAY <30 DAYS: Yes HOSPICE: HOSPICE: No HOSPICE EVAL & TREAT: No LTAC: ADMIT TO LTAC: Yes POST DISCHARGE ORDERS: ACTIVITY ORDERS: Activity as tolerated DIET AFTER DISCHARGE: NPO CHECKS AFTER DISCHARGE: CHECKS AFTER DISCHARGE: Check blood press - daily, Check blood sugar, ac/hs TREATMENT/EQUIPMENT ORDERS: RESPIRATORY EQUIPMENT NEEDED: Oxygen Physical Therapy For: Evalulation/Treatment Occupational Therapy For: Evaluation/Treatment Speech Language Pathology For: Swallow Cognition DISCHARGE MEDICATIONS: Home Meds Discontinued Reported Medications Venlafaxine Hcl (VENLAFAXINE HCL ER) 75 Mg Cap.er.24h, 75 MG PO DAILY, CAP.SR 05/12/19 Simvastatin (SIMVASTATIN) 10 Mg Tablet, 10 MG PO DAILY for FOR CHOLESTEROL, #30 TAB 0 Refills 02/18/19 Metformin Hcl (METFORMIN HCL) 1,000 Mg Tablet, 1000 MG PO BIDWMEALS, TAB 02/18/19 Meloxicam (MELOXICAM) 15 Mg Tablet, PO DAILY, TAB 02/18/19 Lisinopril (LISINOPRIL) 10 Mg Tablet, PO DAILY for FOR HYPERTENSION, #30 TAB 0 Refills 02/18/19 Insulin Lispro (HUMALOG) 100 Unit/1 Ml Cartridge, 100 UNIT SQ, EACH 02/18/19 Carbidopa/Levodopa (SINEMET 25-100 MG TABLET) 1 Each Tablet, 1 TAB PO TID, TAB 02/18/19 HARITHA LARA MD May 21, 2019 07:34
--- NOTE | 2019-05-21 08:58 | PDOC ---
PULMONARY PROGRESS NOTES Subjective PT AWAKE AND ALERT FOLLOW COMMANDS SITTING IN CHAIR NO DISTRESS Vitals Vital Signs Date Time Temp Pulse Resp B/P (MAP) Pulse Ox O2 Delivery O2 Flow Rate FiO2 05/21/19 07:10 97 Nasal Cannula 2.0 05/21/19 07:00 97.6 97 19 157/70 (99) 97.6 ROS: No Nausea, No Chest Pain, No Increase Cough General: Confused Lungs: Crackles, Other Cardiovascular: S1, S2 Abdomen: Soft, Non-tender, Other (no mass) Neuro Exam: Alert Extremities: No Edema Skin: Warm Labs Laboratory Tests Test 05/19/19 12:46 05/19/19 16:30 05/19/19 17:17 05/19/19 21:39 Glucose (Fingerstick) 255 mg/dL (70-99) 159 mg/dL (70-99) 199 mg/dL (70-99) O2 Saturation 94 % (92-99) Arterial Blood pH 7.40 (7.35-7.45) Arterial Blood pCO2 at Patient Temp 27 mmHg (35-46) Arterial Blood pO2 at Patient Temp 75 mmHg (65-108) Arterial Blood HCO3 17 mmol/L (21-28) Arterial Blood Base Excess -7 mmol/L (-3-3) FiO2 28% Test 05/20/19 05:05 05/20/19 05:58 05/20/19 11:50 05/20/19 12:45 White Blood Count 10.3 x10^3/uL (4.0-11.0) Red Blood Count 2.61 x10^6/uL (4.30-5.70) Hemoglobin 8.3 g/dL (13.0-17.5) Hematocrit 24.9 % (39.0-53.0) Mean Corpuscular Volume 96 fL (79-100) Mean Corpuscular Hemoglobin 32 pg (25-35) Mean Corpuscular Hemoglobin Concent 33 g/dL (31-37) Red Cell Distribution Width 14.5 % (11.5-14.5) Platelet Count 433 x10^3/uL (140-400) Neutrophils (%) (Auto) 75 % (31-73) Lymphocytes (%) (Auto) 12 % (24-48) Monocytes (%) (Auto) 10 % (0-9) Eosinophils (%) (Auto) 3 % (0-3) Basophils (%) (Auto) 1 % (0-3) Neutrophils # (Auto) 7.7 x10^3/uL (1.8-7.7) Lymphocytes # (Auto) 1.3 x10^3/uL (1.0-4.8) Monocytes # (Auto) 1.0 x10^3/uL (0.0-1.1) Eosinophils # (Auto) 0.3 x10^3/uL (0.0-0.7) Basophils # (Auto) 0.1 x10^3/uL (0.0-0.2) Sodium Level 148 mmol/L (136-145) Potassium Level 4.6 mmol/L (3.5-5.1) Chloride Level 114 mmol/L (98-107) Carbon Dioxide Level 22 mmol/L (21-32) Anion Gap 12 (6-14) Blood Urea Nitrogen 29 mg/dL (8-26) Creatinine 1.4 mg/dL (0.7-1.3) Estimated GFR (Cockcroft-Gault) 49.7 Glucose Level 198 mg/dL (70-99) Calcium Level 9.1 mg/dL (8.5-10.1) Glucose (Fingerstick) 192 mg/dL (70-99) 170 mg/dL (70-99) Urine Collection Type Unknown Urine Color Yellow Urine Clarity Clear Urine pH 5.0 Urine Specific [place] 1.015 Urine Protein 30 mg/dL (NEG-TRACE) Urine Glucose (UA) 100 mg/dL (NEG) Urine Ketones (Stick) Negative mg/dL (NEG) Urine Blood Moderate (NEG) Urine Nitrite Negative (NEG) Urine Bilirubin Negative (NEG) Urine Urobilinogen Dipstick 0.2 mg/dL (0.2 mg/dL) Urine Leukocyte Esterase Negative (NEG) Urine RBC 3-5 /HPF (0-2) Urine WBC 0 /HPF (0-4) Urine Transitional Epithelial Cells Few /LPF Urine Amorphous Sediment Present /HPF Urine Bacteria 0 /HPF (0-FEW) Urine Hyaline Casts Many /HPF Urine Granular Casts Few /HPF Urine Mucus Marked /LPF Test 05/20/19 18:21 05/20/19 23:30 05/21/19 06:05 Glucose (Fingerstick) 170 mg/dL (70-99) 171 mg/dL (70-99) 208 mg/dL (70-99) Laboratory Tests Test 05/20/19 11:50 05/20/19 12:45 05/20/19 18:21 05/20/19 23:30 Glucose (Fingerstick) 170 mg/dL (70-99) 170 mg/dL (70-99) 171 mg/dL (70-99) Urine Collection Type Unknown Urine Color Yellow Urine Clarity Clear Urine pH 5.0 Urine Specific [place] 1.015 Urine Protein 30 mg/dL (NEG-TRACE) Urine Glucose (UA) 100 mg/dL (NEG) Urine Ketones (Stick) Negative mg/dL (NEG) Urine Blood Moderate (NEG) Urine Nitrite Negative (NEG) Urine Bilirubin Negative (NEG) Urine Urobilinogen Dipstick 0.2 mg/dL (0.2 mg/dL) Urine Leukocyte Esterase Negative (NEG) Urine RBC 3-5 /HPF (0-2) Urine WBC 0 /HPF (0-4) Urine Transitional Epithelial Cells Few /LPF Urine Amorphous Sediment Present /HPF Urine Bacteria 0 /HPF (0-FEW) Urine Hyaline Casts Many /HPF Urine Granular Casts Few /HPF Urine Mucus Marked /LPF Test 05/21/19 06:05 Glucose (Fingerstick) 208 mg/dL (70-99) Medications Active Scripts Medications Dose Route/Sig Max Daily Dose Days Date Category Venlafaxine Hcl 75 Mg Tablet Unknown Dose PO DAILY 02/18/19 Reported Simvastatin 10 Mg Tablet 10 Mg PO DAILY 02/18/19 Reported Metformin Hcl 1,000 Mg Tablet 1,000 Mg PO BIDWMEALS 02/18/19 Reported Meloxicam 15 Mg Tablet Unknown Dose PO DAILY 02/18/19 Reported Lisinopril 10 Mg Tablet Unknown Dose PO DAILY 02/18/19 Reported Humalog (Insulin Lispro) 100 Unit/1 Ml Cartridge 100 Unit SQ 02/18/19 Reported Sinemet 25-100 Mg Tablet (Carbidopa/Levodopa) 1 Each Tablet 1 Tab PO TID 02/18/19 Reported Impression . IMPRESSION: 1. EXPECTED RESP FAILURE status post repair of a perforated duodenal ulcer. 2. Status post laparoscopy with open laparotomy for closure of a duodenal ulcer with Dawood patch. 05/08 3. Acute exacerbation of chronic obstructive pulmonary disease, resolving. 4. Tobacco dependence. 5. Hypertension. 6. Recent right shoulder repair. 7. Hypotension. 8. Fever. 9. Possible sepsis present upon admission. 10. CT-guided abdominal drain placement as described. 05/15 11. DELIRIUM IMPROVED Plan . OK TO TRANSFER TO [facility] IF OK WITH OTHER SERVICES WILL CONTINUE CURRENT SUPPORT PULMONARY HYGIENE D/C SMOKING TG RAZO MD May 21, 2019 08:58
[2019-05-21] MEDS: LACTOBACILLUS RHAMNOSUS GG 1 CAPSULE. PO SCH ×2 (09:00→20:00)
[2019-05-21] MEDS: VENLAFAXINE XR 37.5 MG CAP.ER.24H. PO SCH (09:00)
[2019-05-21] MEDS: PRIMIDONE 50 MG TABLET PO SCH ×2 (09:00→20:00)
[2019-05-21] MEDS: BACITRACIN TOPICAL OINT PACKET. TP SCH (09:00)
[2019-05-21] MEDS: LACOSAMIDE 100 MG in IV DEXTROSE 5% 50 ML IV SCH ×2 (09:08→21:38)
[2019-05-21] MEDS: HEPARIN for SUB-Q USE 5,000 UNIT/ML VIAL. SQ SCH ×2 (09:12→21:45)
[2019-05-21] MEDS: HYDROmorphone 2 MG/ML VIAL IV PRN ×2 (09:19→16:50)
--- NOTE | 2019-05-21 09:28 | PDOC ---
Infectious Disease Note Subjective Subjective awake, says he is ok ROS ROS no n/v/d/sob Vital Sign Vital Signs Vital Signs Date Time Temp Pulse Resp B/P (MAP) Pulse Ox O2 Delivery O2 Flow Rate FiO2 05/21/19 09:19 Nasal Cannula 2.0 05/21/19 07:10 97 05/21/19 07:00 97.6 97 19 157/70 (99) 97.6 Physical Exam PHYSICAL EXAM GENERAL: Laying in bed, NAD - HEENT: Pupils equally round. Oropharynx is clear. NGT NECK: Supple. LUNGS: Clear to auscultation. HEART: S1, S2 regular. ABDOMEN: Obese, soft, less distension. NT with hypoactive bowel sounds. Surgical dressings are dry and MACKENZIE drain intact- with continued bilious drainage. New MACKENZIE with serous fluid EXTREMITIES: No gross edema or cyanosis.. Right shoulder incision well-approx stable, clean. SKIN: Warm to touch. No signs of rash. NEUROLOGIC: sleepy, no focal deficit LUE - clean Labs Lab Laboratory Tests Test 05/20/19 11:50 05/20/19 12:45 05/20/19 18:21 05/20/19 23:30 Glucose (Fingerstick) 170 mg/dL (70-99) 170 mg/dL (70-99) 171 mg/dL (70-99) Urine Collection Type Unknown Urine Color Yellow Urine Clarity Clear Urine pH 5.0 Urine Specific [place] 1.015 Urine Protein 30 mg/dL (NEG-TRACE) Urine Glucose (UA) 100 mg/dL (NEG) Urine Ketones (Stick) Negative mg/dL (NEG) Urine Blood Moderate (NEG) Urine Nitrite Negative (NEG) Urine Bilirubin Negative (NEG) Urine Urobilinogen Dipstick 0.2 mg/dL (0.2 mg/dL) Urine Leukocyte Esterase Negative (NEG) Urine RBC 3-5 /HPF (0-2) Urine WBC 0 /HPF (0-4) Urine Transitional Epithelial Cells Few /LPF Urine Amorphous Sediment Present /HPF Urine Bacteria 0 /HPF (0-FEW) Urine Hyaline Casts Many /HPF Urine Granular Casts Few /HPF Urine Mucus Marked /LPF Test 05/21/19 06:05 Glucose (Fingerstick) 208 mg/dL (70-99) Micro Microbiology 05/15/19 AFB Specimen Processing Tissue - Final, Resulted 05/15/19 Acid Fast Bacilli Culture, Resulted Pending 05/15/19 Gram Stain - Final, Resulted 05/15/19 Fungal Culture, Resulted Pending 05/15/19 Fungal Culture Result 1, Resulted Pending Objective Assessment Acute Encephalopathy - Perforated duodenal ulcer s/p repair, 05/08 no apparent cultures, repair failure S/p Abd drain placed 05/15 sce to fluid collection Fever - times one post procedure 05/15 - improved now Leukocytosis - better today- initial Pancytopenia ? in part reactive Abx allergy: Sulfa and cipro w/ rash Acute respiratory failure, now on venti mask -s/p Bronchoscopy with BAL, 05/09. mucous plugging, culture pending GREGG -mild increase Nonobstructing calculus of the right kidney. Recent right shoulder joint replacement, 05/06 at [facility] Plan of Care cont meropenem f/u cultures/labs in am ct head neg d/w surgery D/w nursing d/w SULEMAN BASURTO MD May 21, 2019 09:28
--- NOTE | 2019-05-21 09:42 | PDOC ---
PROGRESS NOTES Chief Complaint Chief Complaint A/P: s/p perf viscus repair 05/09 05/14 CTExtravasation of oral contrast within the right upper quadrant extending from the first portion of the duodenum, concerning for persistent duodenal perforation. Scattered pneumoperitoneum. Increased loculated fluid within the right mid abdomen adjacent to small bowel loops with wall thickening. Increased mesenteric edema and body wall edema. SEVERE SEPSIS Begin Dapto/Cefepime/Flagyl/Micafungin with leukocytosis and increased THANG drainage despite abx CT 05/14 with extravasation Severe protein-caloric malnutrition GREGG - likely vasomotor nephropathy Perforated duodenal ulcer - Diagnostic laparoscopy with open laparotomy and closure of duodenal ulcer and Dawood patch 05-09 Small amount of ascites is seen within the abdomen and pelvis HTN, Fair control Acute hypoxemic respiratory failure Acute exacerbation of chronic obstructive pulmonary disease. Tobacco dependence. Recent right shoulder repair Movement disorder NOS - parkinsonian symptoms - will restart meds HLD - restart statin DM 2 insulin req REcent RT shoulder sx (total arthroplasty at [facility]) MEt encepahlopathy sec to medical course Recent RT shoulder sx History of Present Illness History of Present Illness confusion better, at [place] able to open eyes today and recognize NGT output not much and clearing up Dr Mendez back thrusday Good UP and creat stable at 1,.4 (was 2 plus on admit)_ dw renal ON procalamine, npo perf SLated for LTAC updated, also would still want to go to [facility] post LTAC - i said that can be done if qualifies Discussed with ID Patinet also a bit tender RT THANG drain site to palpation today Interval CT? but will need contrast and he is a perf case - so need to run it by GS - jad Mccarthy PLAN: Interval CT with contrast to check for leak? - await GS rounds - jad Serenity COnt iV abx per ID COnt PPN CREat/renal sullivan- doing better NO evidence of stroke on CT and neuro work upc ausing encephalopathy Full code dw , SW, RN, ID and renal and GS HE has rt jared shoulder (sx 05/06 outside facility) WOund looks coaptated, ok to take out jared today - bacitracin ointment to site Vitals Vitals Vital Signs Date Time Temp Pulse Resp B/P (MAP) Pulse Ox O2 Delivery O2 Flow Rate FiO2 05/21/19 09:19 Nasal Cannula 2.0 05/21/19 07:10 97 05/21/19 07:00 97.6 97 19 157/70 (99) 97.6 Physical Exam Physical Exam GENERAL: Laying in bed, NAD - HEENT: Pupils equally round. Oropharynx is clear. NGT NECK: Supple. LUNGS: Clear to auscultation. HEART: S1, S2 regular. ABDOMEN: Obese, soft, less distension. NT with hypoactive bowel sounds. Surgical dressings are dry and THANG drain intact- with continued bilious drainage. New THANG with serous fluid EXTREMITIES: No gross edema or cyanosis.. Right shoulder incision well-approx stable, clean. SKIN: Warm to touch. No signs of rash. NEUROLOGIC: sleepy, no focal deficit LUE - clean General: No acute distress, Other (confusion) Heart: Regular rate (SR), Other (distant heart sounds) Lungs: Clear, Other (deminished bs) Abdomen: Soft, Other (ir drain serous, thang brownish drainage, dressing dry) Extremities: No clubbing, No cyanosis, No edema, Normal pulses, No tenderness/swelling Skin: No rashes, No breakdown, No significant lesion, Other (abdominal surgical incision) Labs LABS Laboratory Tests Test 05/20/19 11:50 05/20/19 12:45 05/20/19 18:21 05/20/19 23:30 Glucose (Fingerstick) 170 mg/dL (70-99) 170 mg/dL (70-99) 171 mg/dL (70-99) Urine Collection Type Unknown Urine Color Yellow Urine Clarity Clear Urine pH 5.0 Urine Specific [place] 1.015 Urine Protein 30 mg/dL (NEG-TRACE) Urine Glucose (UA) 100 mg/dL (NEG) Urine Ketones (Stick) Negative mg/dL (NEG) Urine Blood Moderate (NEG) Urine Nitrite Negative (NEG) Urine Bilirubin Negative (NEG) Urine Urobilinogen Dipstick 0.2 mg/dL (0.2 mg/dL) Urine Leukocyte Esterase Negative (NEG) Urine RBC 3-5 /HPF (0-2) Urine WBC 0 /HPF (0-4) Urine Transitional Epithelial Cells Few /LPF Urine Amorphous Sediment Present /HPF Urine Bacteria 0 /HPF (0-FEW) Urine Hyaline Casts Many /HPF Urine Granular Casts Few /HPF Urine Mucus Marked /LPF Test 05/21/19 06:05 Glucose (Fingerstick) 208 mg/dL (70-99) Review of Systems Review of Systems confused, limited ROS Assessment and Plan Assessmemt and Plan Problems Medical Problems: (1) Perforated intestine, nontraumatic Status: Acute Comment Review of Relevant I have reviewed the following items adriano (where applicable) has been applied. Labs Laboratory Tests Test 05/19/19 12:46 05/19/19 16:30 05/19/19 17:17 05/19/19 21:39 Glucose (Fingerstick) 255 mg/dL (70-99) 159 mg/dL (70-99) 199 mg/dL (70-99) O2 Saturation 94 % (92-99) Arterial Blood pH 7.40 (7.35-7.45) Arterial Blood pCO2 at Patient Temp 27 mmHg (35-46) Arterial Blood pO2 at Patient Temp 75 mmHg (65-108) Arterial Blood HCO3 17 mmol/L (21-28) Arterial Blood Base Excess -7 mmol/L (-3-3) FiO2 28% Test 05/20/19 05:05 05/20/19 05:58 05/20/19 11:50 05/20/19 12:45 White Blood Count 10.3 x10^3/uL (4.0-11.0) Red Blood Count 2.61 x10^6/uL (4.30-5.70) Hemoglobin 8.3 g/dL (13.0-17.5) Hematocrit 24.9 % (39.0-53.0) Mean Corpuscular Volume 96 fL (79-100) Mean Corpuscular Hemoglobin 32 pg (25-35) Mean Corpuscular Hemoglobin Concent 33 g/dL (31-37) Red Cell Distribution Width 14.5 % (11.5-14.5) Platelet Count 433 x10^3/uL (140-400) Neutrophils (%) (Auto) 75 % (31-73) Lymphocytes (%) (Auto) 12 % (24-48) Monocytes (%) (Auto) 10 % (0-9) Eosinophils (%) (Auto) 3 % (0-3) Basophils (%) (Auto) 1 % (0-3) Neutrophils # (Auto) 7.7 x10^3/uL (1.8-7.7) Lymphocytes # (Auto) 1.3 x10^3/uL (1.0-4.8) Monocytes # (Auto) 1.0 x10^3/uL (0.0-1.1) Eosinophils # (Auto) 0.3 x10^3/uL (0.0-0.7) Basophils # (Auto) 0.1 x10^3/uL (0.0-0.2) Sodium Level 148 mmol/L (136-145) Potassium Level 4.6 mmol/L (3.5-5.1) Chloride Level 114 mmol/L (98-107) Carbon Dioxide Level 22 mmol/L (21-32) Anion Gap 12 (6-14) Blood Urea Nitrogen 29 mg/dL (8-26) Creatinine 1.4 mg/dL (0.7-1.3) Estimated GFR (Cockcroft-Gault) 49.7 Glucose Level 198 mg/dL (70-99) Calcium Level 9.1 mg/dL (8.5-10.1) Glucose (Fingerstick) 192 mg/dL (70-99) 170 mg/dL (70-99) Urine Collection Type Unknown Urine Color Yellow Urine Clarity Clear Urine pH 5.0 Urine Specific [place] 1.015 Urine Protein 30 mg/dL (NEG-TRACE) Urine Glucose (UA) 100 mg/dL (NEG) Urine Ketones (Stick) Negative mg/dL (NEG) Urine Blood Moderate (NEG) Urine Nitrite Negative (NEG) Urine Bilirubin Negative (NEG) Urine Urobilinogen Dipstick 0.2 mg/dL (0.2 mg/dL) Urine Leukocyte Esterase Negative (NEG) Urine RBC 3-5 /HPF (0-2) Urine WBC 0 /HPF (0-4) Urine Transitional Epithelial Cells Few /LPF Urine Amorphous Sediment Present /HPF Urine Bacteria 0 /HPF (0-FEW) Urine Hyaline Casts Many /HPF Urine Granular Casts Few /HPF Urine Mucus Marked /LPF Test 05/20/19 18:21 05/20/19 23:30 05/21/19 06:05 Glucose (Fingerstick) 170 mg/dL (70-99) 171 mg/dL (70-99) 208 mg/dL (70-99) Laboratory Tests Test 05/20/19 11:50 05/20/19 12:45 05/20/19 18:21 05/20/19 23:30 Glucose (Fingerstick) 170 mg/dL (70-99) 170 mg/dL (70-99) 171 mg/dL (70-99) Urine Collection Type Unknown Urine Color Yellow Urine Clarity Clear Urine pH 5.0 Urine Specific [place] 1.015 Urine Protein 30 mg/dL (NEG-TRACE) Urine Glucose (UA) 100 mg/dL (NEG) Urine Ketones (Stick) Negative mg/dL (NEG) Urine Blood Moderate (NEG) Urine Nitrite Negative (NEG) Urine Bilirubin Negative (NEG) Urine Urobilinogen Dipstick 0.2 mg/dL (0.2 mg/dL) Urine Leukocyte Esterase Negative (NEG) Urine RBC 3-5 /HPF (0-2) Urine WBC 0 /HPF (0-4) Urine Transitional Epithelial Cells Few /LPF Urine Amorphous Sediment Present /HPF Urine Bacteria 0 /HPF (0-FEW) Urine Hyaline Casts Many /HPF Urine Granular Casts Few /HPF Urine Mucus Marked /LPF Test 05/21/19 06:05 Glucose (Fingerstick) 208 mg/dL (70-99) Microbiology 05/15/19 AFB Specimen Processing Tissue - Final, Resulted 05/15/19 Acid Fast Bacilli Culture, Resulted Pending 05/15/19 Gram Stain - Final, Resulted 05/15/19 Fungal Culture, Resulted Pending 05/15/19 Fungal Culture Result 1, Resulted Pending Medications Current Medications Fentanyl Citrate (Fentanyl 2ml Vial) 50 mcg PRN Q15MIN PRN IV PAIN GREATER THAN 3/10 Last administered on 05/08/19at 19:27; Start 05/08/19 at 16:30; Stop 05/08/19 at 21:00; Status DC Sodium Chloride 1,000 ml @ 250 mls/hr Q4H IV Last administered on 05/08/19at 16:54; Start 05/08/19 at 16:19; Stop 05/08/19 at 20:18; Status DC Metoclopramide HCl (Reglan Vial) 10 mg 1X ONCE IVP Last administered on 05/08/19at 16:51; Start 05/08/19 at 17:00; Stop 05/08/19 at 17:01; Status DC Diphenhydramine HCl (Benadryl) 25 mg 1X ONCE IVP Last administered on 05/08/19at 16:51; Start 05/08/19 at 17:00; Stop 05/08/19 at 17:01; Status DC Iohexol (Omnipaque 350 Mg/ml) 90 ml 1X ONCE IV Last administered on 05/08/19at 17:45; Start 05/08/19 at 17:30; Stop 05/08/19 at 17:31; Status DC Info (CONTRAST GIVEN -- Rx MONITORING) 1 each PRN DAILY PRN MC SEE COMMENTS; Start 05/08/19 at 17:30; Stop 05/10/19 at 17:29; Status DC Hydromorphone HCl (Dilaudid) 1 mg 1X ONCE IV Last administered on 05/08/19at 18:23; Start 05/08/19 at 18:30; Stop 05/08/19 at 18:31; Status DC Piperacillin Sod/ Tazobactam Sod 3.375 gm/Sodium Chloride 50 ml @ 100 mls/hr 1X ONCE IV Last administered on 05/08/19at 19:06; Start 05/08/19 at 19:00; Stop 05/08/19 at 19:29; Status DC Sodium Chloride 1,000 ml @ 1,000 mls/hr 1X ONCE IV Last administered on 05/08/19at 19:06; Start 05/08/19 at 19:00; Stop 05/08/19 at 19:59; Status DC Ondansetron HCl (Zofran) 4 mg STK-MED ONCE .ROUTE ; Start 05/08/19 at 19:34; Stop 05/08/19 at 19:34; Status DC Propofol 20 ml @ As Directed STK-MED ONCE IV ; Start 05/08/19 at 19:34; Stop 05/08/19 at 19:34; Status DC Lidocaine HCl (Lidocaine Pf 2% Vial) 5 ml STK-MED ONCE .ROUTE ; Start 05/08/19 at 19:34; Stop 05/08/19 at 19:34; Status DC Dexamethasone Sodium Phosphate (Decadron) 4 mg STK-MED ONCE .ROUTE ; Start 05/08/19 at 19:34; Stop 05/08/19 at 19:34; Status DC Fentanyl Citrate (Fentanyl 2ml Vial) 100 mcg STK-MED ONCE .ROUTE ; Start 05/08/19 at 19:34; Stop 05/08/19 at 19:34; Status DC Succinylcholine Chloride (Anectine) 200 mg STK-MED ONCE .ROUTE ; Start 05/08/19 at 19:34; Stop 05/08/19 at 19:34; Status DC Rocuronium [place] (Zemuron) 50 mg STK-MED ONCE .ROUTE ; Start 05/08/19 at 19:34; Stop 05/08/19 at 19:34; Status DC Ondansetron HCl (Zofran) 4 mg PRN Q6HRS PRN IV NAUSEA/VOMITING; Start 05/08/19 at 19:45; Stop 05/08/19 at 23:59; Status DC Fentanyl Citrate (Fentanyl 2ml Vial) 25 mcg PRN Q5MIN PRN IV MILD PAIN 1-3; Start 05/08/19 at 19:45; Stop 05/08/19 at 23:59; Status DC Fentanyl Citrate (Fentanyl 2ml Vial) 50 mcg PRN Q5MIN PRN IV MODERATE TO SEVERE PAIN; Start 05/08/19 at 19:45; Stop 05/08/19 at 23:59; Status DC Ringer's Solution 1,000 ml @ 30 mls/hr Q24H IV Last administered on 05/08/19at 23:06; Start 05/08/19 at 20:00; Stop 05/09/19 at 01:00; Status DC Prochlorperazine Edisylate (Compazine) 5 mg PACU PRN PRN IV NAUSEA, MRX1; Start 05/08/19 at 19:45; Stop 05/08/19 at 23:59; Status DC Insulin Human Lispro (HumaLOG VIAL for OP,RR ONLY) 0-10 units PRN Q1HR PRN SQ PER PROTOCOL; Start 05/08/19 at 19:45; Stop 05/08/19 at 23:59; Status DC Bupivacaine HCl/ Epinephrine Bitart (Sensorcaine-Epi 0.25%-1:[id number] Mpf) 30 ml 1X ONCE INJ Last administered on 05/08/19at 20:32; Start 05/08/19 at 20:00; Stop 05/08/19 at 20:01; Status DC Ketamine HCl (Ketamine) 50 mg STK-MED ONCE .ROUTE ; Start 05/08/19 at 20:12; Stop 05/08/19 at 20:12; Status DC Phenylephrine HCl (PHENYLEPHRINE in 0.9% NACL PF) 1 mg STK-MED ONCE IV ; Start 05/08/19 at 20:33; Stop 05/08/19 at 20:33; Status DC Ephedrine Sulfate (ePHEDrine PF IN SALINE SYRINGE) 50 mg STK-MED ONCE IV ; Start 05/08/19 at 20:36; Stop 05/08/19 at 20:36; Status DC Albumin Human 500 ml @ As Directed STK-MED ONCE IV ; Start 05/08/19 at 20:55; Stop 05/08/19 at 20:55; Status DC Glycopyrrolate (Robinul) 1 mg STK-MED ONCE .ROUTE ; Start 05/08/19 at 21:27; Stop 05/08/19 at 21:27; Status DC Neostigmine Methylsulfate (Neostigmine Methylsulfate) 5 mg STK-MED ONCE .ROUTE ; Start 05/08/19 at 21:27; Stop 05/08/19 at 21:27; Status DC Bupivacaine HCl (Sensorcaine Mpf 0.5%) 30 ml STK-MED ONCE .ROUTE ; Start 05/08/19 at 21:39; Stop 05/08/19 at 21:39; Status DC Epinephrine HCl (Adrenalin) 1 mg STK-MED ONCE .ROUTE ; Start 05/08/19 at 21:39; Stop 05/08/19 at 21:39; Status DC Sevoflurane (Ultane) 60 ml STK-MED ONCE IH ; Start 05/08/19 at 21:44; Stop 05/08/19 at 21:44; Status DC Sodium Chloride 1,000 ml @ 125 mls/hr Q8H IV Last administered on 05/08/19at 23:45; Start 05/08/19 at 22:00; Stop 05/09/19 at 15:21; Status DC Ondansetron HCl (Zofran) 4 mg PRN Q6HRS PRN IVP NAUSEA/VOMITING 1ST CHOICE; Start 05/08/19 at 22:00 Fluconazole/ Sodium Chloride 100 ml @ 100 mls/hr Q24H IV Last administered on 05/13/19at 21:14; Start 05/08/19 at 22:00; Stop 05/14/19 at 10:28; Status DC Hydromorphone HCl (Dilaudid) 1 mg PRN Q4HRS PRN IV SEVERE PAIN 7-10 Last administered on 05/18/19at 10:14; Start 05/08/19 at 22:00; Stop 05/18/19 at 13:06; Status DC Piperacillin Sod/ Tazobactam Sod 3.375 gm/Sodium Chloride 50 ml @ 100 mls/hr Q6HRS IV Last administered on 05/14/19at 05:49; Start 05/09/19 at 00:00; Stop 05/14/19 at 10:28; Status DC Pantoprazole Sodium (PROTONIX VIAL for IV PUSH) 40 mg DAILY IVP Last administered on 05/11/19at 09:43; Start 05/09/19 at 09:00; Stop 05/12/19 at 08:30; Status DC Insulin Human Regular 150 unit/ Sodium Chloride 151.5 ml @ 0 mls/hr CONT PRN IV SEE I/O RECORD; Start 05/08/19 at 23:00; Status UNV Insulin Human Regular 150 unit/ Sodium Chloride 151.5 ml @ 0 mls/hr CONT PRN IV SEE I/O RECORD Last administered on 05/08/19at 23:03; Start 05/08/19 at 23:00; Stop 05/12/19 at 13:06; Status DC Dextrose (Dextrose 50%-Water Syringe) 12.5 gm PRN Q15MIN PRN IV LOW BLOOD SUGAR; Start 05/08/19 at 23:00; Stop 05/17/19 at 08:35; Status DC Dextrose 250 ml PRN Q15MIN PRN IV LOW BLOOD SUGAR; Start 05/08/19 at 23:00 Albumin Human 500 ml @ 250 mls/hr 1X ONCE IV Last administered on 05/09/19at 00:10; Start 05/09/19 at 00:30; Stop 05/09/19 at 02:29; Status DC Norepinephrine Bitartrate 250 ml @ 20.156 mls/ hr CONT PRN IV SEE I/O RECORD; Start 05/09/19 at 00:00; Stop 05/12/19 at 13:06; Status DC Dextrose/Sodium Chloride 1,000 ml @ 150 mls/hr Q6H40M IV Last administered on 05/09/19at 12:28; Start 05/09/19 at 08:45; Stop 05/09/19 at 18:30; Status DC Sodium Chloride 500 ml @ 500 mls/hr PRN Q2HR PRN IV SEE COMMENTS; Start 05/09/19 at 11:15 Sodium Chloride 1,000 ml @ 2,190 mls/hr Q28M IV ; Start 05/09/19 at 12:39; Stop 05/09/19 at 13:39; Status DC Sodium Chloride 500 ml @ 1,000 mls/hr PRN Q30MIN PRN IV SEE COMMENTS; Start 05/09/19 at 12:45; Stop 05/09/19 at 12:50; Status DC Norepinephrine Bitartrate 250 ml @ 19.688 mls/ hr CONT PRN IV SEE I/O RECORD; Start 05/09/19 at 12:45; Status Cancel Dobutamine HCl/ Dextrose 250 ml @ 15.75 mls/ hr CONT PRN IV SEE I/O RECORD; Start 05/09/19 at 12:45; Stop 05/12/19 at 13:06; Status DC Insulin Human Lispro (HumaLOG) 0-7 UNITS TIDWMEALS SQ ; Start 05/09/19 at 17:00; Stop 05/09/19 at 19:36; Status DC Dextrose (Dextrose 50%-Water Syringe) 12.5 gm PRN Q15MIN PRN IV SEE COMMENTS; Start 05/09/19 at 15:30; Status UNV Sodium Chloride 1,000 ml @ 60 mls/hr [id number] IV Last administered on at 16:47; Start 05/09/19 at 15:30; Stop 05/12/19 at 10:57; Status DC Insulin Human Lispro (HumaLOG) 0-7 UNITS Q6HRS SQ Last administered on 05/13/19at 05:50; Start 05/10/19 at 00:00; Stop 05/13/19 at 08:27; Status DC Albuterol/ Ipratropium (Duoneb) 3 ml RTQID NEB Last administered on 05/21/19at 07:09; Start 05/10/19 at 08:00 Budesonide (Pulmicort) 0.5 mg RTBID NEB Last administered on 05/21/19at 07:09; Start 05/10/19 at 08:00 Heparin Sodium (Porcine) (Heparin Sodium) 5,000 unit BID SQ Last administered on 05/21/19 09:12; Start 05/11/19 at 10:00 Phenol (Chloraseptic) 1 spray PRN Q2HR PRN PO SORE THROAT Last administered on 05/11/19at 13:12; Start 05/11/19 at 11:30 Multi-Ingredient Ointment (Analgesic [place]) 1 jazlyn PRN QID PRN TP MUSCLE PAIN; Start 05/11/19 at 11:30 Amino Acids/ Glycerin/ Electrolytes 1,000 ml @ 80 mls/hr [id number] IV Last administered on 05/15/19at 05:59; Start 05/11/19 at 12:00; Stop 05/15/19 at 21:59; Status DC Hydralazine HCl (Apresoline Inj) 10 mg PRN Q4HRS PRN IVP ELEVATED BP, SEE COMMENTS; Start 05/11/19 at 11:45 Pantoprazole Sodium (Protonix) 40 mg DAILYAC PO Last administered on 05/14/19 06:04; Start 05/12/19 at 09:00; Stop 05/17/19 at 11:29; Status DC Carbidopa/Levodopa (Sinemet 25/100) 1 tab TID PO ; Start 05/12/19 at 14:00; Stop 05/12/19 at 13:40; Status DC Lisinopril (Prinivil) 10 mg DAILY PO Last administered on 05/14/19at 09:14; Start 05/13/19 at 09:00; Stop 05/16/19 at 10:07; Status DC Simvastatin (Zocor) 10 mg QHS PO Last administered on 05/14/19at 21:08; Start 05/12/19 at 21:00 Venlafaxine HCl (Effexor) 75 mg DAILY PO Last administered on 05/12/19at 13:34; Start 05/12/19 at 13:30; Stop 05/12/19 at 14:20; Status DC Primidone (Mysoline) 50 mg DAILY PO ; Start 05/12/19 at 13:45; Stop 05/12/19 at 14:27; Status DC Insulin Glargine (Lantus Syringe) 15 unit QHS SQ Last administered on 05/16/19at 22:25; Start 05/12/19 at 21:00; Stop 05/17/19 at 08:31; Status DC Venlafaxine HCl (Effexor Xr) 75 mg DAILY PO Last administered on 05/14/19at 09:13; Start 05/13/19 at 09:00 Lactobacillus Rhamnosus (Culturelle) 1 cap BID PO Last administered on 05/14/19at 21:08; Start 05/12/19 at 21:00 Primidone (Mysoline) 25 mg BID PO Last administered on 05/14/19at 21:08; Start 05/12/19 at 14:30 Gabapentin (Neurontin) 300 mg PRN QHS PRN PO NEUROPATHIC PAIN Last administered on 05/12/19at 20:53; Start 05/12/19 at 17:45 Acetaminophen (Tylenol) 500 mg PRN Q6HRS PRN PO MILD PAIN / TEMP; Start 05/13/19 at 08:30 Tramadol HCl (Ultram) 50 mg PRN Q6HRS PRN PO PAIN MOD TO SEV Last administered on 05/14/19at 04:27; Start 05/13/19 at 08:30; Stop 05/19/19 at 16:19; Status DC Clonidine HCl (Catapres) 0.1 mg PRN Q1HR PRN PO HYPERTENSION; Start 05/13/19 at 08:30 Ondansetron HCl (Zofran) 4 mg PRN Q6HRS PRN IVP NAUSEA/VOMITING; Start 05/13/19 at 08:30; Status UNV Venlafaxine HCl (Effexor Xr) 37.5 mg BID PO ; Start 05/13/19 at 09:00; Stop 05/13/19 at 08:33; Status DC Iohexol (Omnipaque 240 Mg/ml) 30 ml 1X ONCE PO Last administered on 05/14/19at 08:45; Start 05/14/19 at 08:45; Stop 05/14/19 at 08:48; Status DC Iohexol (Omnipaque 300 Mg/ml) 60 ml 1X ONCE IV Last administered on 05/14/19at 08:45; Start 05/14/19 at 08:45; Stop 05/14/19 at 08:48; Status DC Info (CONTRAST GIVEN -- Rx MONITORING) 1 each PRN DAILY PRN MC SEE COMMENTS; Start 05/14/19 at 09:00; Stop 05/16/19 at 08:59; Status DC Daptomycin 570 mg/ Sodium Chloride 50 ml @ 100 mls/hr Q24H IV Last administered on 05/19/19at 13:21; Start 05/14/19 at 11:30; Stop 05/20/19 at 08:07; Status DC Micafungin Sodium 100 mg/Dextrose 100 ml @ 100 mls/hr Q24H IV Last administered on 05/19/19at 11:32; Start 05/14/19 at 11:00; Stop 05/20/19 at 08:07; Status DC Cefepime HCl (Maxipime) 2 gm Q8HRS IVP Last administered on 05/18/19at 06:25; Start 05/14/19 at 12:00; Stop 05/18/19 at 08:18; Status DC Metronidazole 100 ml @ 100 mls/hr Q8HRS IV Last administered on 05/18/19at 06:28; Start 05/14/19 at 14:00; Stop 05/18/19 at 08:18; Status DC Lidocaine HCl (Buffered Lidocaine 1%) 3 ml STK-MED ONCE .ROUTE ; Start 05/14/19 at 12:43; Stop 05/14/19 at 12:44; Status DC Lidocaine HCl (Buffered Lidocaine 1%) 3 ml 1X ONCE IJ Last administered on at 13:14; Start 05/14/19 at 13:00; Stop 05/14/19 at 13:02; Status DC Info (Tpn Per Pharmacy) 1 each PRN DAILY PRN MC SEE COMMENTS Last administered on 05/18/19at 11:41; Start 05/14/19 at 16:00; Stop 05/19/19 at 11:20; Status DC Sodium Chloride 90 meq/Potassium Chloride 50 meq/ Potassium Phosphate 13.6 mmol/Magnesium Sulfate 10 meq/ Calcium Gluconate 10 meq/ Multivitamins 10 ml/Chromium/ Copper/Manganese/ Seleni/Zn 1 ml/ Total Parenteral Nutrition/Amino Acids/Dextrose/ Fat Emulsion Intravenous 1,512 ml @ 63 mls/hr TPN CONT IV Last administered on 05/15/19at 21:58; Start 05/15/19 at 22:00; Stop 05/16/19 at 21:59; Status DC Lidocaine HCl (Buffered Lidocaine 1%) 3 ml STK-MED ONCE .ROUTE ; Start 05/15/19 at 13:19; Stop 05/15/19 at 13:19; Status DC Midazolam HCl (Versed) 2 mg STK-MED ONCE .ROUTE ; Start 05/15/19 at 13:47; Stop 05/15/19 at 13:47; Status DC Fentanyl Citrate (Fentanyl 2ml Vial) 100 mcg STK-MED ONCE .ROUTE ; Start 05/15/19 at 13:47; Stop 05/15/19 at 13:47; Status DC Flumazenil (Romazicon) 0.5 mg STK-MED ONCE IV ; Start 05/15/19 at 13:47; Stop 05/15/19 at 13:47; Status DC Naloxone HCl (Narcan) 0.4 mg STK-MED ONCE .ROUTE ; Start 05/15/19 at 13:47; Stop 05/15/19 at 13:47; Status DC Lidocaine HCl (Buffered Lidocaine 1%) 4 ml 1X ONCE IJ Last administered on 05/15/19at 14:30; Start 05/15/19 at 14:30; Stop 05/15/19 at 14:38; Status DC Midazolam HCl (Versed) 1 mg 1X ONCE IV Last administered on 05/15/19at 14:30; Start 05/15/19 at 14:30; Stop 05/15/19 at 14:38; Status DC Fentanyl Citrate (Fentanyl 2ml Vial) 50 mcg 1X ONCE IV Last administered on 05/15/19at 14:30; Start 05/15/19 at 14:30; Stop 05/15/19 at 14:38; Status DC Insulin Human Lispro (HumaLOG) 0-9 UNITS TIDWMEALS SQ ; Start 05/16/19 at 17:00; Stop 05/16/19 at 13:29; Status DC Dextrose (Dextrose 50%-Water Syringe) 12.5 gm PRN Q15MIN PRN IV SEE COMMENTS; Start 05/16/19 at 13:15 Insulin Human Regular (HumuLIN R VIAL) 8 unit 1X ONCE IV Last administered on 05/16/19at 13:36; Start 05/16/19 at 13:15; Stop 05/16/19 at 13:22; Status DC Insulin Human Lispro (HumaLOG) 0-9 UNITS Q6HRS SQ Last administered on 05/21/19at 06:12; Start 05/16/19 at 18:00 Sodium Chloride 90 meq/Potassium Chloride 50 meq/ Potassium Phosphate 13.6 mmol/Magnesium Sulfate 10 meq/ Calcium Gluconate 10 meq/ Multivitamins 10 ml/Chromium/ Copper/Manganese/ Seleni/Zn 1 ml/ Total Parenteral Nutrition/Amino Acids/Dextrose/ Fat Emulsion Intravenous 1,512 ml @ 63 mls/hr TPN CONT IV Last administered on 05/16/19at 21:56; Start 05/16/19 at 22:00; Stop 05/17/19 at 21:59; Status DC Sodium Chloride 1,000 ml @ 75 mls/hr [id number] IV Last administered on 05/19/19at 04:50; Start 05/16/19 at 14:45; Stop 05/19/19 at 11:20; Status DC Insulin Glargine (Lantus Syringe) 22 unit QHS SQ Last administered on 05/17/19at 20:46; Start 05/17/19 at 08:30; Stop 05/18/19 at 07:49; Status DC Labetalol HCl (Normodyne Iv Push) 10 mg PRN Q2HR PRN IVP HYPERTENSION; Start 05/17/19 at 08:30 Insulin Glargine (Lantus Syringe) 10 unit 1X STAT SQ Last administered on 05/17/19at 09:13; Start 05/17/19 at 08:30; Stop 05/17/19 at 08:33; Status DC Pantoprazole Sodium (PROTONIX VIAL for IV PUSH) 40 mg DAILYAC IVP Last administered on 05/21/19at 04:48; Start 05/17/19 at 13:00 Sodium Chloride 60 meq/Potassium Chloride 30 meq/ Potassium Phosphate 13.6 mmol/Magnesium Sulfate 10 meq/ Calcium Gluconate 10 meq/ Multivitamins 10 ml/Chromium/ Copper/Manganese/ Seleni/Zn 1 ml/ Total Parenteral Nutrition/Amino Acids/Dextrose/ Fat Emulsion Intravenous 1,512 ml @ 63 mls/hr TPN CONT IV Last administered on 05/17/19at 23:13; Start 05/17/19 at 22:00; Stop 05/18/19 at 21:59; Status DC Haloperidol Lactate (Haldol Inj) 2 mg 1X ONCE IM ; Start 05/17/19 at 22:30; Stop 05/17/19 at 22:31; Status Cancel Haloperidol Lactate (Haldol Inj) 2 mg 1X ONCE IVP Last administered on 05/17/19at 23:01; Start 05/17/19 at 22:45; Stop 05/17/19 at 22:46; Status DC Lorazepam (Ativan Inj) 1 mg PRN Q6HRS PRN IVP ANXIETY / AGITATION Last administered on 05/18/19at 01:32; Start 05/18/19 at 01:30; Stop 05/18/19 at 07:48; Status DC Haloperidol Lactate (Haldol Inj) 5 mg 1X ONCE IVP Last administered on 05/18/19at 04:41; Start 05/18/19 at 04:30; Stop 05/18/19 at 04:31; Status DC Lorazepam (Ativan Inj) 1 mg 1X ONCE IVP Last administered on 05/18/19at 05:02; Start 05/18/19 at 04:30; Stop 05/18/19 at 04:31; Status DC Lorazepam (Ativan Inj) 2 mg PRN Q4HRS PRN IVP ANXIETY / AGITATION Last administered on 05/19/19at 03:07; Start 05/18/19 at 07:45; Stop 05/19/19 at 07:55; Status DC Insulin Glargine (Lantus Syringe) 35 unit QHS SQ Last administered on 05/20/19at 21:27; Start 05/18/19 at 21:00 Insulin Glargine (Lantus Syringe) 10 unit ONCE STAT SQ Last administered on 05/18/19at 07:47; Start 05/18/19 at 07:47; Stop 05/18/19 at 07:51; Status DC Haloperidol Lactate (Haldol Inj) 5 mg PRN Q6HRS PRN IVP AGITATION 2nd choice Last administered on 05/19/19at 07:07; Start 05/18/19 at 08:00; Stop 05/19/19 at 07:55; Status DC Meropenem 500 mg/ Sodium Chloride 50 ml @ 100 mls/hr Q6HRS IV Last administered on 05/21/19at 05:21; Start 05/18/19 at 09:00; Stop 05/21/19 at 09:28; Status DC Bacitracin (Bacitracin Zinc Oint Pkt) 1 pkt DAILY TP Last administered on 05/19/19at 08:19; Start 05/18/19 at 10:15 Potassium Phosphate 13.6 mmol/Magnesium Sulfate 10 meq/ Calcium Gluconate 10 meq/ Multivitamins 10 ml/Chromium/ Copper/Manganese/ Seleni/Zn 1 ml/ Total Parenteral Nutrition/Amino Acids/Dextrose/ Fat Emulsion Intravenous 1,512 ml @ 63 mls/hr TPN CONT IV Last administered on 05/18/19at 22:35; Start 05/18/19 at 22:00; Stop 05/19/19 at 13:00; Status DC Hydromorphone HCl (Dilaudid) 1 mg PRN Q2HR PRN IV SEVERE PAIN 7-10 Last administered on 05/19/19at 07:07; Start 05/18/19 at 13:15; Stop 05/19/19 at 07:55; Status DC Lacosamide 100 mg/ Dextrose 60 ml @ 120 mls/hr BID IV Last administered on 05/21/19at 09:08; Start 05/18/19 at 15:00 Haloperidol Lactate (Haldol Inj) 2.5 mg PRN Q6HRS PRN IVP AGITATION 2nd choice Last administered on 05/20/19at 23:24; Start 05/19/19 at 08:00 Hydromorphone HCl (Dilaudid) 0.5 mg PRN Q2HR PRN IV SEVERE PAIN 7-10 Last administered on 05/21/19at 09:19; Start 05/19/19 at 08:00 Lorazepam (Ativan Inj) 1 mg PRN Q4HRS PRN IVP ANXIETY / AGITATION Last administered on 05/19/19at 12:38; Start 05/19/19 at 08:00; Stop 05/19/19 at 16:19; Status DC Amino Acids/ Glycerin/ Electrolytes 1,000 ml @ 80 mls/hr [id number] IV Last administered on 05/21/19at 04:47; Start 05/19/19 at 13:00 Sodium Chloride 1,000 ml @ 75 mls/hr [id number] IV Last administered on 05/20/19at 05:13; Start 05/19/19 at 16:30; Stop 05/20/19 at 10:57; Status DC Meropenem 500 mg/ Sodium Chloride 50 ml @ 100 mls/hr Q8HRS IV ; Start 05/21/19 at 14:00 Active Scripts Active No Active Prescriptions or Reported Medications Vitals/I & O Vital Sign - Last 24 Hours 05/20/19 05/20/19 05/20/19 05/20/19 10:20 11:00 11:00 11:25 Temp 99.9 99.9 Pulse 91 Resp 16 B/P (MAP) 155/77 (103) Pulse Ox 99 95 O2 Delivery Nasal Cannula Nasal Cannula Room Air Nasal Cannula O2 Flow Rate 2.0 2.0 2.0 05/20/19 05/20/19 05/20/19 05/20/19 15:00 16:31 17:35 18:23 Temp 98.6 98.6 Pulse 95 Resp 18 B/P (MAP) 128/53 (78) Pulse Ox 96 96 O2 Delivery Nasal Cannula Nasal Cannula Nasal Cannula Nasal Cannula O2 Flow Rate 2.0 2.0 2.0 2.0 05/20/19 05/20/19 05/20/19 05/20/19 19:36 19:53 20:00 23:30 Temp 97.7 97.5 97.7 97.5 Pulse 96 89 Resp 18 20 B/P (MAP) 126/75 (92) 135/65 (88) Pulse Ox 95 96 95 O2 Delivery Nasal Cannula Nasal Cannula Nasal Cannula Nasal Cannula O2 Flow Rate 2.0 2.0 2.0 2.0 05/21/19 05/21/19 05/21/19 05/21/19 03:07 07:00 07:10 09:19 Temp 97.8 97.6 97.8 97.6 Pulse 92 97 Resp 18 19 B/P (MAP) 132/52 (78) 157/70 (99) Pulse Ox 95 94 97 O2 Delivery Nasal Cannula Nasal Cannula Nasal Cannula Nasal Cannula O2 Flow Rate 2.0 2.0 2.0 2.0 Intake and Output 0 05/20/19 05/20/19 05/21/19 15:00 23:00 07:00 Intake Total 110 ml 1000 ml Output Total 400 ml 540 ml 250 ml Balance -290 ml 460 ml -250 ml HARITHA LARA MD May 21, 2019 09:42
--- NOTE | 2019-05-21 10:15 | NUR ---
SW following. Discussed with RN and Dr. Edmondson, pt possibly needing a CT. Dr. Hickman is apparently back tomorrow (05/22/19), there is question whether pt needs another surgery or not. SW will continue to follow. Plan is to eventually discharge to [facility] when ready.
[2019-05-21 10:42] VITALS: BP 160/74
--- NOTE | 2019-05-21 13:11 | PDOC ---
SUBJECTIVE ROS Follow-up for AK I, hypernatremia Patient appears to be doing a lot better today. He appears to be more awake and less agitated. Unable to reliably answer review of systems questions but no nausea vomiting given NG tube in place OBJECTIVE Vital Signs Vital Signs Date Time Temp Pulse Resp B/P (MAP) Pulse Ox O2 Delivery O2 Flow Rate FiO2 05/21/19 10:42 97.8 98 19 160/74 (102) 94 Nasal Cannula 2.0 97.8 I & 0 Intake and Output 05/21/19 07:00 Intake Total 1110 ml Output Total 1190 ml Balance -80 ml IV Total 1110 ml Output Urine Total 400 ml Gastric Drainage Total 300 ml Drainage Total 490 ml # Voids 6 PHYSICAL EXAM Physical Exam GEN: Much more Awake today, Oriented x 1, In no visible distress, less agitated and not as confused EYES: Sclera is anicteric Conjunctiva Normal EN: No EN Drainage, Mucous Membranes dry NG tube in place NECK: no JVD, no JVP, Supple, no Thyromegaly CVS: S1S2, possible Murmur, No Gallop, No Rub,no Edema RESP: no Rales, no Rhonchi,no Acc. Muscle Use GI: BS + ve, NO Bruit, Min Tender, Non Distended : no CVA tenderness, no Suprapubic Tenderness DIAGNOSIS/ASSESSMENT Assessment & Plan ARF: Outpatient baseline is not available. Current creatinine is close to admission baseline creatinine of 1.5 Chronic kidney disease stage III underlying with baseline creatinine of 1.5 given other foci of atherosclerotic vascular disease cannot be ruled out. Hypernatremia: We'll await labs for tomorrow Severe hypoalbuminemia: Presumably associated with recent perforation of viscus and surgery. Continue parental nutrition for now. Transition to tube feeds/enteral feeding if and when approved by general surgery. ANEMIA; may need blood transfusion hemoglobin drops below 7. IV iron will not be ordered for now due to low-grade fevers Right renal calculus: Will require outpatient urology evaluation. No current urology coverage available at this hospital. Await UA. Discussed Plan of Care with patients family at bedside COMMENT/RELEVANT DATA Meds Current Medications Medications (Trade) Dose Ordered Sig/[place] Start Time Stop Time Status Last Admin Dose Admin Acetaminophen (Tylenol) 500 mg PRN Q6HRS PRN 05/13/19 08:30 Albumin Human 500 ml @ 250 mls/hr 1X ONCE 05/09/19 00:30 05/09/19 02:29 DC 05/09/19 00:10 250 MLS/HR Albuterol/ Ipratropium (Duoneb) 3 ml RTQID 05/10/19 08:00 05/21/19 10:38 3 ML Amino Acids/ Glycerin/ Electrolytes 1,000 ml @ 80 mls/hr [id number] 05/19/19 13:00 05/21/19 04:47 80 MLS/HR Bacitracin (Bacitracin Zinc Oint Pkt) 1 pkt DAILY 05/18/19 10:15 05/19/19 08:19 1 PKT Budesonide (Pulmicort) 0.5 mg RTBID 05/10/19 08:00 05/21/19 07:09 0.5 MG Bupivacaine HCl (Sensorcaine Mpf 0.5%) 30 ml STK-MED ONCE 05/08/19 21:39 05/08/19 21:39 DC Bupivacaine HCl/ Epinephrine Bitart (Sensorcaine-Epi 0.25%-1:[id number] Mpf) 30 ml 1X ONCE 05/08/19 20:00 05/08/19 20:01 DC 05/08/19 20:32 26 ML Carbidopa/Levodopa (Sinemet 25/100) 1 tab TID 05/12/19 14:00 05/12/19 13:40 DC Cefepime HCl (Maxipime) 2 gm Q8HRS 05/14/19 12:00 05/18/19 08:18 DC 05/18/19 06:25 2 GM Clonidine HCl (Catapres) 0.1 mg PRN Q1HR PRN 05/13/19 08:30 Daptomycin 570 mg/ Sodium Chloride 50 ml @ 100 mls/hr Q24H 05/14/19 11:30 05/20/19 08:07 DC 05/19/19 13:21 100 MLS/HR Dexamethasone Sodium Phosphate (Decadron) 4 mg STK-MED ONCE 05/08/19 19:34 05/08/19 19:34 DC Dextrose (Dextrose 50%-Water Syringe) 12.5 gm PRN Q15MIN PRN 05/16/19 13:15 Dextrose/Sodium Chloride 1,000 ml @ 150 mls/hr Q6H40M 05/09/19 08:45 05/09/19 18:30 DC 05/09/19 12:28 150 MLS/HR Diphenhydramine HCl (Benadryl) 25 mg 1X ONCE 05/08/19 17:00 05/08/19 17:01 DC 05/08/19 16:51 25 MG Dobutamine HCl/ Dextrose 250 ml @ 15.75 mls/ hr CONT PRN 05/09/19 12:45 05/12/19 13:06 DC Ephedrine Sulfate (ePHEDrine PF IN SALINE SYRINGE) 50 mg STK-MED ONCE 05/08/19 20:36 05/08/19 20:36 DC Epinephrine HCl (Adrenalin) 1 mg STK-MED ONCE 05/08/19 21:39 05/08/19 21:39 DC Fentanyl Citrate (Fentanyl 2ml Vial) 50 mcg 1X ONCE 05/15/19 14:30 05/15/19 14:38 DC 05/15/19 14:30 50 MCG Fluconazole/ Sodium Chloride 100 ml @ 100 mls/hr Q24H 05/08/19 22:00 05/14/19 10:28 DC 05/13/19 21:14 100 MLS/HR Flumazenil (Romazicon) 0.5 mg STK-MED ONCE 05/15/19 13:47 05/15/19 13:47 DC Gabapentin (Neurontin) 300 mg PRN QHS PRN 05/12/19 17:45 05/12/19 20:53 300 MG Glycopyrrolate (Robinul) 1 mg STK-MED ONCE 05/08/19 21:27 05/08/19 21:27 DC Haloperidol Lactate (Haldol Inj) 2.5 mg PRN Q6HRS PRN 05/19/19 08:00 05/20/19 23:24 2.5 MG Heparin Sodium (Porcine) (Heparin Sodium) 5,000 unit BID 05/11/19 10:00 05/21/19 09:12 5,000 UNIT Hydralazine HCl (Apresoline Inj) 10 mg PRN Q4HRS PRN 05/11/19 11:45 Hydromorphone HCl (Dilaudid) 0.5 mg PRN Q2HR PRN 05/19/19 08:00 05/21/19 09:19 0.5 MG Info (CONTRAST GIVEN -- Rx MONITORING) 1 each PRN DAILY PRN 05/14/19 09:00 05/16/19 08:59 DC Info (Tpn Per Pharmacy) 1 each PRN DAILY PRN 05/14/19 16:00 05/19/19 11:20 DC 05/18/19 11:41 1 EACH Insulin Glargine (Lantus Syringe) 10 unit ONCE STAT 05/18/19 07:47 05/18/19 07:51 DC 05/18/19 07:47 10 UNIT Insulin Human Lispro (HumaLOG VIAL for OP,RR ONLY) 0-10 units PRN Q1HR PRN 05/08/19 19:45 05/08/19 23:59 DC Insulin Human Lispro (HumaLOG) 0-9 UNITS Q6HRS 05/16/19 18:00 05/21/19 06:12 3 UNITS Insulin Human Regular (HumuLIN R VIAL) 8 unit 1X ONCE 05/16/19 13:15 05/16/19 13:22 DC 05/16/19 13:36 8 UNIT Insulin Human Regular 150 unit/ Sodium Chloride 151.5 ml @ 0 mls/hr CONT PRN 05/08/19 23:00 05/12/19 13:06 DC 05/08/19 23:03 5 MLS/HR Iohexol (Omnipaque 240 Mg/ml) 30 ml 1X ONCE 05/14/19 08:45 05/14/19 08:48 DC 05/14/19 08:45 30 ML Iohexol (Omnipaque 300 Mg/ml) 60 ml 1X ONCE 05/14/19 08:45 05/14/19 08:48 DC 05/14/19 08:45 60 ML Iohexol (Omnipaque 350 Mg/ml) 90 ml 1X ONCE 05/08/19 17:30 05/08/19 17:31 DC 05/08/19 17:45 90 ML Ketamine HCl (Ketamine) 50 mg STK-MED ONCE 05/08/19 20:12 05/08/19 20:12 DC Labetalol HCl (Normodyne Iv Push) 10 mg PRN Q2HR PRN 05/17/19 08:30 Lacosamide 100 mg/ Dextrose 60 ml @ 120 mls/hr BID 05/18/19 15:00 05/21/19 09:08 120 MLS/HR Lactobacillus Rhamnosus (Culturelle) 1 cap BID 05/12/19 21:00 05/14/19 21:08 1 CAP Lidocaine HCl (Buffered Lidocaine 1%) 4 ml 1X ONCE 05/15/19 14:30 05/15/19 14:38 DC 05/15/19 14:30 4 ML Lidocaine HCl (Lidocaine Pf 2% Vial) 5 ml STK-MED ONCE 05/08/19 19:34 05/08/19 19:34 DC Lisinopril (Prinivil) 10 mg DAILY 05/13/19 09:00 05/16/19 10:07 DC 05/14/19 09:14 10 MG Lorazepam (Ativan Inj) 1 mg PRN Q4HRS PRN 05/19/19 08:00 05/19/19 16:19 DC 05/19/19 12:38 1 MG Meropenem 500 mg/ Sodium Chloride 50 ml @ 100 mls/hr Q8HRS 05/21/19 14:00 Metoclopramide HCl (Reglan Vial) 10 mg 1X ONCE 05/08/19 17:00 05/08/19 17:01 DC 05/08/19 16:51 10 MG Metronidazole 100 ml @ 100 mls/hr Q8HRS 05/14/19 14:00 05/18/19 08:18 DC 05/18/19 06:28 100 MLS/HR Micafungin Sodium 100 mg/Dextrose 100 ml @ 100 mls/hr Q24H 05/14/19 11:00 05/20/19 08:07 DC 05/19/19 11:32 100 MLS/HR Midazolam HCl (Versed) 1 mg 1X ONCE 05/15/19 14:30 05/15/19 14:38 DC 05/15/19 14:30 1 MG Multi-Ingredient Ointment (Analgesic [place]) 1 jazlyn PRN QID PRN 05/11/19 11:30 Naloxone HCl (Narcan) 0.4 mg STK-MED ONCE 05/15/19 13:47 05/15/19 13:47 DC Neostigmine Methylsulfate (Neostigmine Methylsulfate) 5 mg STK-MED ONCE 05/08/19 21:27 05/08/19 21:27 DC Norepinephrine Bitartrate 250 ml @ 19.688 mls/ hr CONT PRN 05/09/19 12:45 Cancel Ondansetron HCl (Zofran) 4 mg PRN Q6HRS PRN 05/13/19 08:30 UNV Pantoprazole Sodium (PROTONIX VIAL for IV PUSH) 40 mg DAILYAC 05/17/19 13:00 05/21/19 04:48 40 MG Pantoprazole Sodium (Protonix) 40 mg DAILYAC 05/12/19 09:00 05/17/19 11:29 DC 05/14/19 06:04 40 MG Phenol (Chloraseptic) 1 spray PRN Q2HR PRN 05/11/19 11:30 05/11/19 13:12 1 SPRAY Phenylephrine HCl (PHENYLEPHRINE in 0.9% NACL PF) 1 mg STK-MED ONCE 05/08/19 20:33 05/08/19 20:33 DC Piperacillin Sod/ Tazobactam Sod 3.375 gm/Sodium Chloride 50 ml @ 100 mls/hr Q6HRS 05/09/19 00:00 05/14/19 10:28 DC 05/14/19 05:49 100 MLS/HR Potassium Phosphate 13.6 mmol/Magnesium Sulfate 10 meq/ Calcium Gluconate 10 meq/ Multivitamins 10 ml/Chromium/ Copper/Manganese/ Seleni/Zn 1 ml/ Total Parenteral Nutrition/Amino Acids/Dextrose/ Fat Emulsion Intravenous 1,512 ml @ 63 mls/hr TPN CONT 05/18/19 22:00 05/19/19 13:00 DC 05/18/19 22:35 63 MLS/HR Primidone (Mysoline) 25 mg BID 05/12/19 14:30 05/14/19 21:08 25 MG Prochlorperazine Edisylate (Compazine) 5 mg PACU PRN PRN 05/08/19 19:45 05/08/19 23:59 DC Propofol 20 ml @ As Directed STK-MED ONCE 05/08/19 19:34 05/08/19 19:34 DC Ringer's Solution 1,000 ml @ 30 mls/hr Q24H 05/08/19 20:00 05/09/19 01:00 DC 05/08/19 23:06 30 MLS/HR Rocuronium [place] (Zemuron) 50 mg STK-MED ONCE 05/08/19 19:34 05/08/19 19:34 DC Sevoflurane (Ultane) 60 ml STK-MED ONCE 05/08/19 21:44 05/08/19 21:44 DC Simvastatin (Zocor) 10 mg QHS 05/12/19 21:00 05/14/19 21:08 10 MG Sodium Chloride 1,000 ml @ 75 mls/hr [id number] 05/19/19 16:30 05/20/19 10:57 DC 05/20/19 05:13 75 MLS/HR Sodium Chloride 60 meq/Potassium Chloride 30 meq/ Potassium Phosphate 13.6 mmol/Magnesium Sulfate 10 meq/ Calcium Gluconate 10 meq/ Multivitamins 10 ml/Chromium/ Copper/Manganese/ Seleni/Zn 1 ml/ Total Parenteral Nutrition/Amino Acids/Dextrose/ Fat Emulsion Intravenous 1,512 ml @ 63 mls/hr TPN CONT 05/17/19 22:00 05/18/19 21:59 DC 05/17/19 23:13 63 MLS/HR Sodium Chloride 90 meq/Potassium Chloride 50 meq/ Potassium Phosphate 13.6 mmol/Magnesium Sulfate 10 meq/ Calcium Gluconate 10 meq/ Multivitamins 10 ml/Chromium/ Copper/Manganese/ Seleni/Zn 1 ml/ Total Parenteral Nutrition/Amino Acids/Dextrose/ Fat Emulsion Intravenous 1,512 ml @ 63 mls/hr TPN CONT 05/16/19 22:00 05/17/19 21:59 DC 05/16/19 21:56 63 MLS/HR Succinylcholine Chloride (Anectine) 200 mg STK-MED ONCE 05/08/19 19:34 05/08/19 19:34 DC Tramadol HCl (Ultram) 50 mg PRN Q6HRS PRN 05/13/19 08:30 05/19/19 16:19 DC 05/14/19 04:27 50 MG Venlafaxine HCl (Effexor Xr) 37.5 mg BID 05/13/19 09:00 05/13/19 08:33 DC Venlafaxine HCl (Effexor) 75 mg DAILY 05/12/19 13:30 05/12/19 14:20 DC 05/12/19 13:34 75 MG Lab Laboratory Tests Test 05/20/19 18:21 11/5/19 23:30 05/21/19 06:05 05/21/19 11:27 Glucose (Fingerstick) 170 mg/dL (70-99) 171 mg/dL (70-99) 208 mg/dL (70-99) 193 mg/dL (70-99) Results All relevant outside records, renal labs, imaging studies, telemetry/EKG's were reviewed. CHAS BASURTO MD May 21, 2019 13:11
--- NOTE | 2019-05-21 13:12 | PDOC ---
SURGICAL PROGRESS NOTE Subjective Pt up in chair, alert, appears mentally improved, denies complaint Vital Signs Vital Signs Date Time Temp Pulse Resp B/P (MAP) Pulse Ox O2 Delivery O2 Flow Rate FiO2 05/21/19 10:42 97.8 98 19 160/74 (102) 94 Nasal Cannula 2.0 97.8 I&O Intake and Output 05/21/19 07:00 Intake Total 1110 ml Output Total 1190 ml Balance -80 ml IV Total 1110 ml Output Urine Total 400 ml Gastric Drainage Total 300 ml Drainage Total 490 ml # Voids 6 General: Alert, Cooperative, No acute distress Abdomen: Soft, No tenderness, Other (MACKENZIE drain with brownish fluid) Labs Laboratory Tests Test 05/19/19 16:30 05/19/19 17:17 05/19/19 21:39 05/20/19 05:05 O2 Saturation 94 % (92-99) Arterial Blood pH 7.40 (7.35-7.45) Arterial Blood pCO2 at Patient Temp 27 mmHg (35-46) Arterial Blood pO2 at Patient Temp 75 mmHg (65-108) Arterial Blood HCO3 17 mmol/L (21-28) Arterial Blood Base Excess -7 mmol/L (-3-3) FiO2 28% Glucose (Fingerstick) 159 mg/dL (70-99) 199 mg/dL (70-99) White Blood Count 10.3 x10^3/uL (4.0-11.0) Red Blood Count 2.61 x10^6/uL (4.30-5.70) Hemoglobin 8.3 g/dL (13.0-17.5) Hematocrit 24.9 % (39.0-53.0) Mean Corpuscular Volume 96 fL (79-100) Mean Corpuscular Hemoglobin 32 pg (25-35) Mean Corpuscular Hemoglobin Concent 33 g/dL (31-37) Red Cell Distribution Width 14.5 % (11.5-14.5) Platelet Count 433 x10^3/uL (140-400) Neutrophils (%) (Auto) 75 % (31-73) Lymphocytes (%) (Auto) 12 % (24-48) Monocytes (%) (Auto) 10 % (0-9) Eosinophils (%) (Auto) 3 % (0-3) Basophils (%) (Auto) 1 % (0-3) Neutrophils # (Auto) 7.7 x10^3/uL (1.8-7.7) Lymphocytes # (Auto) 1.3 x10^3/uL (1.0-4.8) Monocytes # (Auto) 1.0 x10^3/uL (0.0-1.1) Eosinophils # (Auto) 0.3 x10^3/uL (0.0-0.7) Basophils # (Auto) 0.1 x10^3/uL (0.0-0.2) Sodium Level 148 mmol/L (136-145) Potassium Level 4.6 mmol/L (3.5-5.1) Chloride Level 114 mmol/L (98-107) Carbon Dioxide Level 22 mmol/L (21-32) Anion Gap 12 (6-14) Blood Urea Nitrogen 29 mg/dL (8-26) Creatinine 1.4 mg/dL (0.7-1.3) Estimated GFR (Cockcroft-Gault) 49.7 Glucose Level 198 mg/dL (70-99) Calcium Level 9.1 mg/dL (8.5-10.1) Test 05/20/19 05:58 05/20/19 11:50 05/20/19 12:45 05/20/19 18:21 Glucose (Fingerstick) 192 mg/dL (70-99) 170 mg/dL (70-99) 170 mg/dL (70-99) Urine Collection Type Unknown Urine Color Yellow Urine Clarity Clear Urine pH 5.0 Urine Specific [place] 1.015 Urine Protein 30 mg/dL (NEG-TRACE) Urine Glucose (UA) 100 mg/dL (NEG) Urine Ketones (Stick) Negative mg/dL (NEG) Urine Blood Moderate (NEG) Urine Nitrite Negative (NEG) Urine Bilirubin Negative (NEG) Urine Urobilinogen Dipstick 0.2 mg/dL (0.2 mg/dL) Urine Leukocyte Esterase Negative (NEG) Urine RBC 3-5 /HPF (0-2) Urine WBC 0 /HPF (0-4) Urine Transitional Epithelial Cells Few /LPF Urine Amorphous Sediment Present /HPF Urine Bacteria 0 /HPF (0-FEW) Urine Hyaline Casts Many /HPF Urine Granular Casts Few /HPF Urine Mucus Marked /LPF Test 05/20/19 23:30 05/21/19 06:05 05/21/19 11:27 Glucose (Fingerstick) 171 mg/dL (70-99) 208 mg/dL (70-99) 193 mg/dL (70-99) Laboratory Tests Test 05/20/19 18:21 05/20/19 23:30 05/21/19 06:05 05/21/19 11:27 Glucose (Fingerstick) 170 mg/dL (70-99) 171 mg/dL (70-99) 208 mg/dL (70-99) 193 mg/dL (70-99) Problem List Problems Medical Problems: (1) Perforated intestine, nontraumatic Status: Acute Assessment/Plan s/p duodenal ulcer repair, duodenal cutaneous fistula, appears controlled agree with current bowel rest, NGT, drain and supportive care OK to repeat CT when deemed appropriate by ID. No immediate surgical plans JORGE L CLOUD MD May 21, 2019 13:12
--- NOTE | 2019-05-21 14:27 | PDOC ---
PROGRESS NOTES Assessment Assessment Abnormal jerking like movements. Metabolic encephalopathy. ET. Agitation. Delirium. Bowel perforation s/p surgery. Fever. Hyperglycemia. DM. Renal failure. Anemia. HTN. HLD. COPD. Obesity. RECOMMENDATIONS/PLAN: Continue Vimpat 100 mg q12h. Continue Statin. Treat medical and surgical diseases. Unable to perform MRI on him due to agitation and delirium. Discussed with his again at bedside on 05/21/19. HCT: No acute findings. EEG pending. History of Present Illness This is a 73-year-old white male patient was came to the ER of [facility] on 05/08/19 with complaints of severe abdominal pain, nausea, vomiting. He had a right shoul abhishek surgery 2 days prior and has been on nonsteroidal anti-inflammatories for quite some time. Abdomen CT scan shows free air in the right upper quadrant with some perihepatic ascites. Neurology was request for a consultation on 05/18/19 due to abnormal movements, mental status changes, and confusion. 05/21/19: His mentation slightly improved and able to open eyes per commands. Past Medical History Cardiovascular: HTN Pulmonary: No pertinent hx GI: Gastritis, Peptic Ulcer disease Heme/Onc: No pertinent hx Hepatobiliary: No pertinent hx Psych: No pertinent hx Musculoskeletal: Other (shoulder pain) Rheumatologic: No pertinent hx Infectious disease: No pertinent hx ENT: No pertinent hx Renal/: Chronic renal insuff Endocrine: Diabetes Dermatology: No pertinent hx Past Surgical History Right shoulder surgery postop 2 days to this admission. Family History No Significant Social History ALCOHOL: rare Drugs: None Lives: with Family Allergies Coded Allergies: sulfamethoxazole (Verified Allergy, Severe, Altered Mental Status , 05/08/19) trimethoprim (Verified Allergy, Severe, Altered Mental Status , 05/08/19) Sulfa (Sulfonamide Antibiotics) (Verified Allergy, Intermediate, 02/18/19) ciprofloxacin (Verified Allergy, Unknown, rash, 05/08/19) codeine (Verified Allergy, Unknown, Rash, 05/08/19) MEDICATIONS: Refer to [facility] REVIEW OF SYSTEMS: Constitutional: Obesity. Head: No traumatic brain or head injury. Skin: No edema, or rash. Ear: No infection. Eyes: No vision loss or color blindness. Nose: No bleeding or purulent discharges. Hearing: Hearing decrease. Neck: No injury. Cardiac: HTN, HLD. Pulmonary: COPD. GI: Abdomen pain. Urinary/genital: UTI. Endocrinologic: Diabetes Mellitus, obesity. Skeletomuscular: Tremors. Neurological: see HP. Psychiatric: Denies drug use/abuse. Otherwise, not [id number] review of systems. PHYSICAL EXAMINATION: General appearance is in subacute distress. HEENT: Normocephalic and nontraumatic. Eyes, nose, ears, and throat are unremarkable. Neck is supple. No lymphadenopathy. No crepitus. Cardiovascular: S1, S2. Pulmonary: decreased to auscultation bilaterally. Abdomen: Bowel sounds are positive? Extremities: No rash, lesions, or edema. No restriction of range of motion NEUROLOGICAL EXAMINATION: Mildly lethargic. Sitting in chair. Abnormal movements controlled. Not oriented to time, place but knew his at bedside. PERRL. EOMI. CN: no focal findings. Muscle tone: Fluctuated. Muscle strength: Moves all extremities. DTR: 1+ Plantar reflex: Neutral response bilaterally Gait: not able to walk. Sensory exam: Withdrew to stimuli. Not able to access cerebellar signs. F-T-N test not performed due to not follow commands. Objective Objective Vital Signs Date Time Temp Pulse Resp B/P (MAP) Pulse Ox O2 Delivery O2 Flow Rate FiO2 05/21/19 10:42 97.8 98 19 160/74 (102) 94 Nasal Cannula 2.0 97.8 Intake and Output 05/21/19 07:00 Intake Total 1110 ml Output Total 1190 ml Balance -80 ml IV Total 1110 ml Output Urine Total 400 ml Gastric Drainage Total 300 ml Drainage Total 490 ml # Voids 6 Vitals Signs Vitals VS - Last 72 Hours, by Label Date Time Temp Pulse Resp B/P (MAP) Pulse Ox O2 Delivery O2 Flow Rate FiO2 05/21/19 10:42 97.8 98 19 160/74 (102) 94 Nasal Cannula 2.0 97.8 05/21/19 10:38 Nasal Cannula 2.0 05/21/19 10:00 Room Air 05/21/19 09:19 Nasal Cannula 2.0 05/21/19 08:00 Nasal Cannula 2.0 05/21/19 07:10 97 Nasal Cannula 2.0 05/21/19 07:00 97.6 97 19 157/70 (99) 94 Nasal Cannula 2.0 97.6 05/21/19 03:07 97.8 92 18 132/52 (78) 95 Nasal Cannula 2.0 97.8 05/20/19 23:30 97.5 89 20 135/65 (88) 95 Nasal Cannula 2.0 97.5 05/20/19 20:00 Nasal Cannula 2.0 05/20/19 19:53 97.7 96 18 126/75 (92) 96 Nasal Cannula 2.0 97.7 05/20/19 19:36 95 Nasal Cannula 2.0 05/20/19 18:23 Nasal Cannula 2.0 05/20/19 17:35 Nasal Cannula 2.0 05/20/19 16:31 96 Nasal Cannula 2.0 05/20/19 15:00 98.6 95 18 128/53 (78) 96 Nasal Cannula 2.0 98.6 05/20/19 11:25 95 Nasal Cannula 2.0 05/20/19 11:00 99.9 91 16 155/77 (103) 99 Room Air 99.9 05/20/19 11:00 Nasal Cannula 2.0 05/20/19 10:20 Nasal Cannula 2.0 05/20/19 08:30 Nasal Cannula 2.0 05/20/19 07:15 95 Nasal Cannula 2.0 05/20/19 07:00 99.1 100 16 146/68 (94) 94 Room Air 99.1 Laboratory Laboratory Laboratory Tests Test 05/20/19 18:21 05/20/19 23:30 05/21/19 06:05 05/21/19 11:27 Glucose (Fingerstick) 170 mg/dL (70-99) 171 mg/dL (70-99) 208 mg/dL (70-99) 193 mg/dL (70-99) Microbiology 05/15/19 AFB Specimen Processing Tissue - Final, Resulted 05/15/19 Acid Fast Bacilli Culture, Resulted Pending 05/15/19 Gram Stain - Final, Resulted 05/15/19 Fungal Culture, Resulted Pending 05/15/19 Fungal Culture Result 1, Resulted Pending Medication Medications Current Medications Meropenem 500 mg/ Sodium Chloride 50 ml @ 100 mls/hr Q8HRS IV Last administered on 05/21/19at 14:20; Start 05/21/19 at 14:00 Comment Review of Relevant I have reviewed the following items adriano (where applicable) has been applied. PATRICE LOVE MD May 21, 2019 14:27
[2019-05-21 14:28] VITALS: BP 170/65
[2019-05-21] MEDS ORDERED: BISACODYL 10 MG SUPP.RECT. PR PRN (15:45)
[2019-05-21 19:00] VITALS: BP 131/68
--- NOTE | 2019-05-21 19:52 | NUR ---
Flushed drain 10 cc of saline. Pt tolerated well. Drain patent.
[2019-05-21] MEDS: SIMVASTATIN 10 MG TABLET PO SCH (20:01)
[2019-05-21] MEDS: INSULIN GLARGINE SYRINGE. SQ SCH (21:43)
[2019-05-21 23:00] VITALS: BP 138/57
[2019-05-22] VITALS (23 sets, daily range): BP systolic 73–175; BP diastolic 45–80
[2019-05-22] MEDS: HYDROmorphone 2 MG/ML VIAL IV PRN ×2 (04:13→21:33)
[2019-05-22] MEDS: INSULIN LISPRO 300 UNITS/3 ML VIAL. SQ SCH ×3 (06:00→18:00)
[2019-05-22] MEDS: AMINO AC 3%/ELECTROLYTE/GLYCER 1,000 ML IV SCH ×2 (06:13→16:00)
[2019-05-22] MEDS: MEROPENEM 500 MG in IV NORMAL SALINE 50ML 50 ML IV SCH (06:13)
[2019-05-22] MEDS: PANTOPRAZOLE IV PUSH 40 MG VIAL. IVP SCH (06:21)
[2019-05-22 06:28] LABS: CALCIUM 8.9 mg/dL (8.5-10.1); CREATININE 1.4 mg/dL (0.7-1.3); GFR 49.7; POTASSIUM 4.9 mmol/L (3.5-5.1)
[2019-05-22] MEDS: BUDESONIDE 0.5 MG/2 ML NEBU. NEB SCH ×2 (07:06→20:04)
[2019-05-22] MEDS: IPRATRPIUM/ALBUTEROL 0.5/2.5MG 3 ML NEBU. NEB SCH ×4 (07:06→20:04)
--- NOTE | 2019-05-22 08:23 | PDOC ---
Infectious Disease Note Subjective Subjective awake, says he is ok, still very somnolent ROS ROS no n/v/d/sob Vital Sign Vital Signs Vital Signs Date Time Temp Pulse Resp B/P (MAP) Pulse Ox O2 Delivery O2 Flow Rate FiO2 05/22/19 07:07 95 Room Air 05/22/19 07:00 98.9 86 18 153/57 (89) 98.9 05/21/19 15:33 2.0 Physical Exam PHYSICAL EXAM GENERAL: Laying in bed, NAD - HEENT: Pupils equally round. Oropharynx is clear. NGT NECK: Supple. LUNGS: Clear to auscultation. HEART: S1, S2 regular. ABDOMEN: Obese, soft, less distension. NT with hypoactive bowel sounds. Surgical dressings are dry and MACKENZIE drain intact- with continued bilious drainage. New MACKENZIE with serous fluid EXTREMITIES: No gross edema or cyanosis.. Right shoulder incision well-approx stable, clean. SKIN: Warm to touch. No signs of rash. NEUROLOGIC: sleepy, no focal deficit LUE - clean Labs Lab Laboratory Tests Test 05/21/19 11:27 05/21/19 16:39 05/21/19 23:56 05/22/19 05:20 Glucose (Fingerstick) 193 mg/dL (70-99) 187 mg/dL (70-99) 170 mg/dL (70-99) Sodium Level 143 mmol/L (136-145) Potassium Level 4.9 mmol/L (3.5-5.1) Chloride Level 109 mmol/L (98-107) Carbon Dioxide Level 23 mmol/L (21-32) Anion Gap 11 (6-14) Blood Urea Nitrogen 36 mg/dL (8-26) Creatinine 1.4 mg/dL (0.7-1.3) Estimated GFR (Cockcroft-Gault) 49.7 Glucose Level 180 mg/dL (70-99) Calcium Level 8.9 mg/dL (8.5-10.1) Test 05/22/19 06:08 05/22/19 07:31 Glucose (Fingerstick) 162 mg/dL (70-99) 164 mg/dL (70-99) Micro Microbiology 05/15/19 AFB Specimen Processing Tissue - Final, Resulted 05/15/19 Acid Fast Bacilli Culture, Resulted Pending 05/15/19 Gram Stain - Final, Resulted 05/15/19 Fungal Culture, Resulted Pending 05/15/19 Fungal Culture Result 1, Resulted Pending Objective Assessment Acute Encephalopathy - Perforated duodenal ulcer s/p repair, 05/08 no apparent cultures, repair failure S/p Abd drain placed 05/15 sce to fluid collection Fever - times one post procedure 05/15 - improved now Leukocytosis - better today- initial Pancytopenia ? in part reactive Abx allergy: Sulfa and cipro w/ rash Acute respiratory failure, now on venti mask -s/p Bronchoscopy with BAL, 05/09. mucous plugging, culture pending GREGG -mild increase Nonobstructing calculus of the right kidney. Recent right shoulder joint replacement, 05/06 at [facility] Plan of Care check ammonia, d/c meropenem f/u cultures/labs in am ct head neg d/w surgery D/w nursing d/w SULEMAN BASURTO MD May 22, 2019 08:23
[2019-05-22] MEDS: LACTOBACILLUS RHAMNOSUS GG 1 CAPSULE. PO SCH ×2 (09:00→21:07)
[2019-05-22] MEDS: VENLAFAXINE XR 37.5 MG CAP.ER.24H. PO SCH (09:00)
[2019-05-22] MEDS: PRIMIDONE 50 MG TABLET PO SCH ×2 (09:00→21:07)
[2019-05-22] MEDS: BACITRACIN TOPICAL OINT PACKET. TP SCH (09:00)
[2019-05-22] MEDS: HEPARIN for SUB-Q USE 5,000 UNIT/ML VIAL. SQ SCH ×2 (09:13→21:07)
[2019-05-22] MEDS: LACOSAMIDE 100 MG in IV DEXTROSE 5% 50 ML IV SCH ×2 (09:17→21:38)
--- NOTE | 2019-05-22 09:20 | PDOC ---
SUBJECTIVE ROS AK I, possible CKD, Patient developed worsening confusion overnight and required Haldol again. Urine output has not been recorded given lack of Patrick catheter. OBJECTIVE Vital Signs Vital Signs Date Time Temp Pulse Resp B/P (MAP) Pulse Ox O2 Delivery O2 Flow Rate FiO2 05/22/19 07:07 95 Room Air 05/22/19 07:00 98.9 86 18 153/57 (89) 98.9 05/21/19 15:33 2.0 I & 0 Intake and Output 05/22/19 07:00 Output Total 640 ml Balance -640 ml Drainage Total 640 ml # Voids 6 # Bowel Movements 3 PHYSICAL EXAM Physical Exam GEN: Back to being sedated again today. Appears jittery, In no visible distress, EYES: Sclera is anicteric Conjunctiva Normal EN: No EN Drainage, Mucous Membranes dry NG tube in place NECK: no JVD, no JVP, Supple, no Thyromegaly CVS: S1S2, possible Murmur, No Gallop, No Rub,no Edema RESP: no Rales, no Rhonchi,no Acc. Muscle Use GI: BS + ve, NO Bruit, Min Tender, Non Distended : no CVA tenderness, no Suprapubic Tenderness DIAGNOSIS/ASSESSMENT Assessment & Plan ARF: Outpatient baseline is not available. Current creatinine is close to admission baseline creatinine of 1.5 Chronic kidney disease stage III underlying with baseline creatinine of 1.5 given other foci of atherosclerotic vascular disease cannot be ruled out. Hypernatremia: Now resolved with PPN hence restart TPN with increased water Severe hypoalbuminemia: Presumably associated with recent perforation of viscus and surgery. Continue parental nutrition for now. Transition to tube feeds/enteral feeding if and when approved by general surgery. ANEMIA; may need blood transfusion hemoglobin drops below 7. IV iron will not be ordered for now due to low-grade fevers Right renal calculus: Will require outpatient urology evaluation. No current urology coverage available at this hospital. Await UA. Another CT scan for his intra-abdominal pathology is contemplated in the near future hence imaging studies for this have not been reordered Discussed Plan of Care with patients family at bedside COMMENT/RELEVANT DATA Meds Current Medications Medications (Trade) Dose Ordered Sig/[place] Start Time Stop Time Status Last Admin Dose Admin Acetaminophen (Tylenol) 500 mg PRN Q6HRS PRN 05/13/19 08:30 Albumin Human 500 ml @ 250 mls/hr 1X ONCE 05/09/19 00:30 05/09/19 02:29 DC 05/09/19 00:10 250 MLS/HR Albuterol/ Ipratropium (Duoneb) 3 ml RTQID 05/10/19 08:00 05/22/19 07:06 3 ML Amino Acids/ Glycerin/ Electrolytes 1,000 ml @ 80 mls/hr [id number] 05/19/19 13:00 05/22/19 06:13 80 MLS/HR Bacitracin (Bacitracin Zinc Oint Pkt) 1 pkt DAILY 05/18/19 10:15 05/19/19 08:19 1 PKT Bisacodyl (Dulcolax Supp) 10 mg PRN DAILY PRN 05/21/19 15:45 05/21/19 16:34 10 MG Budesonide (Pulmicort) 0.5 mg RTBID 05/10/19 08:00 05/22/19 07:06 0.5 MG Bupivacaine HCl (Sensorcaine Mpf 0.5%) 30 ml STK-MED ONCE 05/08/19 21:39 05/08/19 21:39 DC Bupivacaine HCl/ Epinephrine Bitart (Sensorcaine-Epi 0.25%-1:[id number] Mpf) 30 ml 1X ONCE 05/08/19 20:00 05/08/19 20:01 DC 05/08/19 20:32 26 ML Carbidopa/Levodopa (Sinemet 25/100) 1 tab TID 05/12/19 14:00 05/12/19 13:40 DC Cefepime HCl (Maxipime) 2 gm Q8HRS 05/14/19 12:00 05/18/19 08:18 DC 05/18/19 06:25 2 GM Clonidine HCl (Catapres) 0.1 mg PRN Q1HR PRN 05/13/19 08:30 Daptomycin 570 mg/ Sodium Chloride 50 ml @ 100 mls/hr Q24H 05/14/19 11:30 05/20/19 08:07 DC 05/19/19 13:21 100 MLS/HR Dexamethasone Sodium Phosphate (Decadron) 4 mg STK-MED ONCE 05/08/19 19:34 05/08/19 19:34 DC Dextrose (Dextrose 50%-Water Syringe) 12.5 gm PRN Q15MIN PRN 05/16/19 13:15 Dextrose/Sodium Chloride 1,000 ml @ 150 mls/hr Q6H40M 05/09/19 08:45 05/09/19 18:30 DC 05/09/19 12:28 150 MLS/HR Diphenhydramine HCl (Benadryl) 25 mg 1X ONCE 05/08/19 17:00 05/08/19 17:01 DC 05/08/19 16:51 25 MG Dobutamine HCl/ Dextrose 250 ml @ 15.75 mls/ hr CONT PRN 05/09/19 12:45 05/12/19 13:06 DC Ephedrine Sulfate (ePHEDrine PF IN SALINE SYRINGE) 50 mg STK-MED ONCE 05/08/19 20:36 05/08/19 20:36 DC Epinephrine HCl (Adrenalin) 1 mg STK-MED ONCE 05/08/19 21:39 05/08/19 21:39 DC Fentanyl Citrate (Fentanyl 2ml Vial) 50 mcg 1X ONCE 05/15/19 14:30 05/15/19 14:38 DC 05/15/19 14:30 50 MCG Fluconazole/ Sodium Chloride 100 ml @ 100 mls/hr Q24H 05/08/19 22:00 05/14/19 10:28 DC 05/13/19 21:14 100 MLS/HR Flumazenil (Romazicon) 0.5 mg STK-MED ONCE 05/15/19 13:47 05/15/19 13:47 DC Gabapentin (Neurontin) 300 mg PRN QHS PRN 05/12/19 17:45 05/12/19 20:53 300 MG Glycopyrrolate (Robinul) 1 mg STK-MED ONCE 05/08/19 21:27 05/08/19 21:27 DC Haloperidol Lactate (Haldol Inj) 2.5 mg PRN Q6HRS PRN 05/19/19 08:00 05/20/19 23:24 2.5 MG Heparin Sodium (Porcine) (Heparin Sodium) 5,000 unit BID 05/11/19 10:00 05/21/19 21:45 5,000 UNIT Hydralazine HCl (Apresoline Inj) 10 mg PRN Q4HRS PRN 05/11/19 11:45 Hydromorphone HCl (Dilaudid) 0.5 mg PRN Q2HR PRN 05/19/19 08:00 05/22/19 04:13 0.5 MG Info (CONTRAST GIVEN -- Rx MONITORING) 1 each PRN DAILY PRN 05/14/19 09:00 05/16/19 08:59 DC Info (Tpn Per Pharmacy) 1 each PRN DAILY PRN 05/14/19 16:00 05/19/19 11:20 DC 05/18/19 11:41 1 EACH Insulin Glargine (Lantus Syringe) 10 unit ONCE STAT 05/18/19 07:47 05/18/19 07:51 DC 05/18/19 07:47 10 UNIT Insulin Human Lispro (HumaLOG VIAL for OP,RR ONLY) 0-10 units PRN Q1HR PRN 05/08/19 19:45 05/08/19 23:59 DC Insulin Human Lispro (HumaLOG) 0-9 UNITS Q6HRS 05/16/19 18:00 05/21/19 06:12 3 UNITS Insulin Human Regular (HumuLIN R VIAL) 8 unit 1X ONCE 05/16/19 13:15 05/16/19 13:22 DC 05/16/19 13:36 8 UNIT Insulin Human Regular 150 unit/ Sodium Chloride 151.5 ml @ 0 mls/hr CONT PRN 05/08/19 23:00 05/12/19 13:06 DC 05/08/19 23:03 5 MLS/HR Iohexol (Omnipaque 240 Mg/ml) 30 ml 1X ONCE 05/14/19 08:45 05/14/19 08:48 DC 05/14/19 08:45 30 ML Iohexol (Omnipaque 300 Mg/ml) 60 ml 1X ONCE 05/14/19 08:45 05/14/19 08:48 DC 05/14/19 08:45 60 ML Iohexol (Omnipaque 350 Mg/ml) 90 ml 1X ONCE 05/08/19 17:30 05/08/19 17:31 DC 05/08/19 17:45 90 ML Ketamine HCl (Ketamine) 50 mg STK-MED ONCE 05/08/19 20:12 05/08/19 20:12 DC Labetalol HCl (Normodyne Iv Push) 10 mg PRN Q2HR PRN 05/17/19 08:30 Lacosamide 100 mg/ Dextrose 60 ml @ 120 mls/hr BID 05/18/19 15:00 05/21/19 21:38 120 MLS/HR Lactobacillus Rhamnosus (Culturelle) 1 cap BID 05/12/19 21:00 05/14/19 21:08 1 CAP Lidocaine HCl (Buffered Lidocaine 1%) 4 ml 1X ONCE 05/15/19 14:30 05/15/19 14:38 DC 05/15/19 14:30 4 ML Lidocaine HCl (Lidocaine Pf 2% Vial) 5 ml STK-MED ONCE 05/08/19 19:34 05/08/19 19:34 DC Lisinopril (Prinivil) 10 mg DAILY 05/13/19 09:00 05/16/19 10:07 DC 05/14/19 09:14 10 MG Lorazepam (Ativan Inj) 1 mg PRN Q4HRS PRN 05/19/19 08:00 05/19/19 16:19 DC 05/19/19 12:38 1 MG Meropenem 500 mg/ Sodium Chloride 50 ml @ 100 mls/hr Q8HRS 05/21/19 14:00 05/22/19 08:24 DC 05/22/19 06:13 100 MLS/HR Metoclopramide HCl (Reglan Vial) 10 mg 1X ONCE 05/08/19 17:00 05/08/19 17:01 DC 05/08/19 16:51 10 MG Metronidazole 100 ml @ 100 mls/hr Q8HRS 05/14/19 14:00 05/18/19 08:18 DC 05/18/19 06:28 100 MLS/HR Micafungin Sodium 100 mg/Dextrose 100 ml @ 100 mls/hr Q24H 05/14/19 11:00 05/20/19 08:07 DC 05/19/19 11:32 100 MLS/HR Midazolam HCl (Versed) 1 mg 1X ONCE 05/15/19 14:30 05/15/19 14:38 DC 05/15/19 14:30 1 MG Multi-Ingredient Ointment (Analgesic [place]) 1 jazlyn PRN QID PRN 05/11/19 11:30 Naloxone HCl (Narcan) 0.4 mg STK-MED ONCE 05/15/19 13:47 05/15/19 13:47 DC Neostigmine Methylsulfate (Neostigmine Methylsulfate) 5 mg STK-MED ONCE 05/08/19 21:27 05/08/19 21:27 DC Norepinephrine Bitartrate 250 ml @ 19.688 mls/ hr CONT PRN 05/09/19 12:45 Cancel Ondansetron HCl (Zofran) 4 mg PRN Q6HRS PRN 05/13/19 08:30 UNV Pantoprazole Sodium (PROTONIX VIAL for IV PUSH) 40 mg DAILYAC 05/17/19 13:00 05/22/19 06:21 40 MG Pantoprazole Sodium (Protonix) 40 mg DAILYAC 05/12/19 09:00 05/17/19 11:29 DC 05/14/19 06:04 40 MG Phenol (Chloraseptic) 1 spray PRN Q2HR PRN 05/11/19 11:30 05/11/19 13:12 1 SPRAY Phenylephrine HCl (PHENYLEPHRINE in 0.9% NACL PF) 1 mg STK-MED ONCE 05/08/19 20:33 05/08/19 20:33 DC Piperacillin Sod/ Tazobactam Sod 3.375 gm/Sodium Chloride 50 ml @ 100 mls/hr Q6HRS 05/09/19 00:00 05/14/19 10:28 DC 05/14/19 05:49 100 MLS/HR Potassium Phosphate 13.6 mmol/Magnesium Sulfate 10 meq/ Calcium Gluconate 10 meq/ Multivitamins 10 ml/Chromium/ Copper/Manganese/ Seleni/Zn 1 ml/ Total Parenteral Nutrition/Amino Acids/Dextrose/ Fat Emulsion Intravenous 1,512 ml @ 63 mls/hr TPN CONT 05/18/19 22:00 05/19/19 13:00 DC 05/18/19 22:35 63 MLS/HR Primidone (Mysoline) 25 mg BID 05/12/19 14:30 05/14/19 21:08 25 MG Prochlorperazine Edisylate (Compazine) 5 mg PACU PRN PRN 05/08/19 19:45 05/08/19 23:59 DC Propofol 20 ml @ As Directed STK-MED ONCE 05/08/19 19:34 05/08/19 19:34 DC Ringer's Solution 1,000 ml @ 30 mls/hr Q24H 05/08/19 20:00 05/09/19 01:00 DC 05/08/19 23:06 30 MLS/HR Rocuronium [place] (Zemuron) 50 mg STK-MED ONCE 05/08/19 19:34 05/08/19 19:34 DC Sevoflurane (Ultane) 60 ml STK-MED ONCE 05/08/19 21:44 05/08/19 21:44 DC Simvastatin (Zocor) 10 mg QHS 05/12/19 21:00 05/14/19 21:08 10 MG Sodium Chloride 1,000 ml @ 75 mls/hr [id number] 05/19/19 16:30 05/20/19 10:57 DC 05/20/19 05:13 75 MLS/HR Sodium Chloride 60 meq/Potassium Chloride 30 meq/ Potassium Phosphate 13.6 mmol/Magnesium Sulfate 10 meq/ Calcium Gluconate 10 meq/ Multivitamins 10 ml/Chromium/ Copper/Manganese/ Seleni/Zn 1 ml/ Total Parenteral Nutrition/Amino Acids/Dextrose/ Fat Emulsion Intravenous 1,512 ml @ 63 mls/hr TPN CONT 05/17/19 22:00 05/18/19 21:59 DC 05/17/19 23:13 63 MLS/HR Sodium Chloride 90 meq/Potassium Chloride 50 meq/ Potassium Phosphate 13.6 mmol/Magnesium Sulfate 10 meq/ Calcium Gluconate 10 meq/ Multivitamins 10 ml/Chromium/ Copper/Manganese/ Seleni/Zn 1 ml/ Total Parenteral Nutrition/Amino Acids/Dextrose/ Fat Emulsion Intravenous 1,512 ml @ 63 mls/hr TPN CONT 05/16/19 22:00 05/17/19 21:59 DC 05/16/19 21:56 63 MLS/HR Succinylcholine Chloride (Anectine) 200 mg STK-MED ONCE 05/08/19 19:34 05/08/19 19:34 DC Tramadol HCl (Ultram) 50 mg PRN Q6HRS PRN 05/13/19 08:30 05/19/19 16:19 DC 05/14/19 04:27 50 MG Venlafaxine HCl (Effexor Xr) 37.5 mg BID 05/13/19 09:00 05/13/19 08:33 DC Venlafaxine HCl (Effexor) 75 mg DAILY 05/12/19 13:30 05/12/19 14:20 DC 05/12/19 13:34 75 MG Lab Laboratory Tests Test 05/21/19 11:27 05/21/19 16:39 05/21/19 23:56 05/22/19 05:20 Glucose (Fingerstick) 193 mg/dL (70-99) 187 mg/dL (70-99) 170 mg/dL (70-99) Sodium Level 143 mmol/L (136-145) Potassium Level 4.9 mmol/L (3.5-5.1) Chloride Level 109 mmol/L (98-107) Carbon Dioxide Level 23 mmol/L (21-32) Anion Gap 11 (6-14) Blood Urea Nitrogen 36 mg/dL (8-26) Creatinine 1.4 mg/dL (0.7-1.3) Estimated GFR (Cockcroft-Gault) 49.7 Glucose Level 180 mg/dL (70-99) Calcium Level 8.9 mg/dL (8.5-10.1) Test 05/22/19 06:08 05/22/19 07:31 Glucose (Fingerstick) 162 mg/dL (70-99) 164 mg/dL (70-99) Results All relevant outside records, renal labs, imaging studies, telemetry/EKG's were reviewed. CHAS BASURTO MD May 22, 2019 09:20
--- NOTE | 2019-05-22 09:23 | NUR ---
SW following. Discussed with RN, Dr. Hickman to see pt, but isn't back until tomorrow (05/23/19), decision to be made about whether to do a CT or not. Plan is to discharge to [facility] when ready. SW will continue to follow.
--- NOTE | 2019-05-22 09:53 | PDOC ---
PULMONARY PROGRESS NOTES Subjective NO RESP DISTRESS STILL CONFUSED Vitals Vital Signs Date Time Temp Pulse Resp B/P (MAP) Pulse Ox O2 Delivery O2 Flow Rate FiO2 05/22/19 07:07 95 Room Air 05/22/19 07:00 98.9 86 18 153/57 (89) 98.9 05/21/19 15:33 2.0 ROS: No Nausea, No Chest Pain, No Increase Cough General: Confused Lungs: Crackles, Other Cardiovascular: S1, S2 Abdomen: Soft, Non-tender, Other (no mass) Neuro Exam: Alert Extremities: No Edema Skin: Warm Labs Laboratory Tests Test 05/20/19 11:50 05/20/19 12:45 05/20/19 18:21 05/20/19 23:30 Glucose (Fingerstick) 170 mg/dL (70-99) 170 mg/dL (70-99) 171 mg/dL (70-99) Urine Collection Type Unknown Urine Color Yellow Urine Clarity Clear Urine pH 5.0 Urine Specific [place] 1.015 Urine Protein 30 mg/dL (NEG-TRACE) Urine Glucose (UA) 100 mg/dL (NEG) Urine Ketones (Stick) Negative mg/dL (NEG) Urine Blood Moderate (NEG) Urine Nitrite Negative (NEG) Urine Bilirubin Negative (NEG) Urine Urobilinogen Dipstick 0.2 mg/dL (0.2 mg/dL) Urine Leukocyte Esterase Negative (NEG) Urine RBC 3-5 /HPF (0-2) Urine WBC 0 /HPF (0-4) Urine Transitional Epithelial Cells Few /LPF Urine Amorphous Sediment Present /HPF Urine Bacteria 0 /HPF (0-FEW) Urine Hyaline Casts Many /HPF Urine Granular Casts Few /HPF Urine Mucus Marked /LPF Test 05/21/19 06:05 05/21/19 11:27 05/21/19 16:39 05/21/19 23:56 Glucose (Fingerstick) 208 mg/dL (70-99) 193 mg/dL (70-99) 187 mg/dL (70-99) 170 mg/dL (70-99) Test 05/22/19 05:20 05/22/19 06:08 05/22/19 07:31 Sodium Level 143 mmol/L (136-145) Potassium Level 4.9 mmol/L (3.5-5.1) Chloride Level 109 mmol/L (98-107) Carbon Dioxide Level 23 mmol/L (21-32) Anion Gap 11 (6-14) Blood Urea Nitrogen 36 mg/dL (8-26) Creatinine 1.4 mg/dL (0.7-1.3) Estimated GFR (Cockcroft-Gault) 49.7 Glucose Level 180 mg/dL (70-99) Calcium Level 8.9 mg/dL (8.5-10.1) Glucose (Fingerstick) 162 mg/dL (70-99) 164 mg/dL (70-99) Laboratory Tests Test 05/21/19 11:27 05/21/19 16:39 05/21/19 23:56 05/22/19 05:20 Glucose (Fingerstick) 193 mg/dL (70-99) 187 mg/dL (70-99) 170 mg/dL (70-99) Sodium Level 143 mmol/L (136-145) Potassium Level 4.9 mmol/L (3.5-5.1) Chloride Level 109 mmol/L (98-107) Carbon Dioxide Level 23 mmol/L (21-32) Anion Gap 11 (6-14) Blood Urea Nitrogen 36 mg/dL (8-26) Creatinine 1.4 mg/dL (0.7-1.3) Estimated GFR (Cockcroft-Gault) 49.7 Glucose Level 180 mg/dL (70-99) Calcium Level 8.9 mg/dL (8.5-10.1) Test 05/22/19 06:08 05/22/19 07:31 Glucose (Fingerstick) 162 mg/dL (70-99) 164 mg/dL (70-99) Medications Active Scripts Medications Dose Route/Sig Max Daily Dose Days Date Category Venlafaxine Hcl 75 Mg Tablet Unknown Dose PO DAILY 02/18/19 Reported Simvastatin 10 Mg Tablet 10 Mg PO DAILY 02/18/19 Reported Metformin Hcl 1,000 Mg Tablet 1,000 Mg PO BIDWMEALS 02/18/19 Reported Meloxicam 15 Mg Tablet Unknown Dose PO DAILY 02/18/19 Reported Lisinopril 10 Mg Tablet Unknown Dose PO DAILY 02/18/19 Reported Humalog (Insulin Lispro) 100 Unit/1 Ml Cartridge 100 Unit SQ 02/18/19 Reported Sinemet 25-100 Mg Tablet (Carbidopa/Levodopa) 1 Each Tablet 1 Tab PO TID 02/18/19 Reported Impression . IMPRESSION: 1. EXPECTED RESP FAILURE status post repair of a perforated duodenal ulcer. 2. Status post laparoscopy with open laparotomy for closure of a duodenal ulcer with Dawood patch. 05/08 3. Acute exacerbation of chronic obstructive pulmonary disease, resolving. 4. Tobacco dependence. 5. Hypertension. 6. Recent right shoulder repair. 7. Hypotension. 8. Fever. 9. Possible sepsis present upon admission. 10. CT-guided abdominal drain placement as described. 05/15 11. DELIRIUM IMPROVED Plan . FOLLOW SURGERY INPUT WILL CONTINUE CURRENT SUPPORT ANITBX PER ID PULMONARY HYGIENE D/C SMOKING TG RAZO MD May 22, 2019 09:53
--- NOTE | 2019-05-22 10:51 | PDOC ---
SURGICAL PROGRESS NOTE Subjective Pt with some decreased mental status. Vital Signs Vital Signs Date Time Temp Pulse Resp B/P (MAP) Pulse Ox O2 Delivery O2 Flow Rate FiO2 05/22/19 07:07 95 Room Air 05/22/19 07:00 98.9 86 18 153/57 (89) 98.9 05/21/19 15:33 2.0 I&O Intake and Output 05/22/19 07:00 Output Total 640 ml Balance -640 ml Drainage Total 640 ml # Voids 6 # Bowel Movements 3 Abdomen: Soft, No tenderness, Other (drain with brown fluid) Labs Laboratory Tests Test 05/20/19 11:50 05/20/19 12:45 05/20/19 18:21 05/20/19 23:30 Glucose (Fingerstick) 170 mg/dL (70-99) 170 mg/dL (70-99) 171 mg/dL (70-99) Urine Collection Type Unknown Urine Color Yellow Urine Clarity Clear Urine pH 5.0 Urine Specific [place] 1.015 Urine Protein 30 mg/dL (NEG-TRACE) Urine Glucose (UA) 100 mg/dL (NEG) Urine Ketones (Stick) Negative mg/dL (NEG) Urine Blood Moderate (NEG) Urine Nitrite Negative (NEG) Urine Bilirubin Negative (NEG) Urine Urobilinogen Dipstick 0.2 mg/dL (0.2 mg/dL) Urine Leukocyte Esterase Negative (NEG) Urine RBC 3-5 /HPF (0-2) Urine WBC 0 /HPF (0-4) Urine Transitional Epithelial Cells Few /LPF Urine Amorphous Sediment Present /HPF Urine Bacteria 0 /HPF (0-FEW) Urine Hyaline Casts Many /HPF Urine Granular Casts Few /HPF Urine Mucus Marked /LPF Test 05/21/19 06:05 05/21/19 11:27 05/21/19 16:39 05/21/19 23:56 Glucose (Fingerstick) 208 mg/dL (70-99) 193 mg/dL (70-99) 187 mg/dL (70-99) 170 mg/dL (70-99) Test 05/22/19 05:20 05/22/19 06:08 05/22/19 07:31 Sodium Level 143 mmol/L (136-145) Potassium Level 4.9 mmol/L (3.5-5.1) Chloride Level 109 mmol/L (98-107) Carbon Dioxide Level 23 mmol/L (21-32) Anion Gap 11 (6-14) Blood Urea Nitrogen 36 mg/dL (8-26) Creatinine 1.4 mg/dL (0.7-1.3) Estimated GFR (Cockcroft-Gault) 49.7 Glucose Level 180 mg/dL (70-99) Calcium Level 8.9 mg/dL (8.5-10.1) Glucose (Fingerstick) 162 mg/dL (70-99) 164 mg/dL (70-99) Laboratory Tests Test 05/21/19 11:27 05/21/19 16:39 05/21/19 23:56 05/22/19 05:20 Glucose (Fingerstick) 193 mg/dL (70-99) 187 mg/dL (70-99) 170 mg/dL (70-99) Sodium Level 143 mmol/L (136-145) Potassium Level 4.9 mmol/L (3.5-5.1) Chloride Level 109 mmol/L (98-107) Carbon Dioxide Level 23 mmol/L (21-32) Anion Gap 11 (6-14) Blood Urea Nitrogen 36 mg/dL (8-26) Creatinine 1.4 mg/dL (0.7-1.3) Estimated GFR (Cockcroft-Gault) 49.7 Glucose Level 180 mg/dL (70-99) Calcium Level 8.9 mg/dL (8.5-10.1) Test 05/22/19 06:08 05/22/19 07:31 Glucose (Fingerstick) 162 mg/dL (70-99) 164 mg/dL (70-99) Problem List Problems Medical Problems: (1) Perforated intestine, nontraumatic Status: Acute Assessment/Plan duodenal perforation appears resonably stable with controlled fistula with drain d/w ID, favor wean off abx and supportive care, minimize narcotics. d/w pt's . JORGE L CLOUD MD May 22, 2019 10:51
--- NOTE | 2019-05-22 11:59 | PDOC ---
PROGRESS NOTES Chief Complaint Chief Complaint A/P: s/p perf viscus repair 05/09 05/14 CTExtravasation of oral contrast within the right upper quadrant extending from the first portion of the duodenum, concerning for persistent duodenal perforation. Scattered pneumoperitoneum. Increased loculated fluid within the right mid abdomen adjacent to small bowel loops with wall thickening. Increased mesenteric edema and body wall edema. SEVERE SEPSIS Begin Dapto/Cefepime/Flagyl/Micafungin with leukocytosis and increased MACKENZIE drainage despite abx CT 05/14 with extravasation Severe protein-caloric malnutrition GREGG - likely vasomotor nephropathy Perforated duodenal ulcer - Diagnostic laparoscopy with open laparotomy and closure of duodenal ulcer and Dawood patch 05-09 Small amount of ascites is seen within the abdomen and pelvis HTN, Fair control Acute hypoxemic respiratory failure Acute exacerbation of chronic obstructive pulmonary disease. Tobacco dependence. Recent right shoulder repair Movement disorder NOS - parkinsonian symptoms - will restart meds HLD - restart statin DM 2 insulin req REcent RT shoulder sx (total arthroplasty at [facility]) MEt encepahlopathy sec to medical course Recent RT shoulder sx History of Present Illness History of Present Illness confusion persists On CCTV Ammonia normal CT head normal at bedside PAtient shakes SItter at bedside LTAC accepted Signif drainage MACKENZIE per [facility] back sunday HE did move BM after dulcolax supp 05/21 PLAN: CPM, NPO,. PPN PAin and agitation meds with RN assessments SItter CCTV IV merrem per ID Vitals Vitals Vital Signs Date Time Temp Pulse Resp B/P (MAP) Pulse Ox O2 Delivery O2 Flow Rate FiO2 05/22/19 11:03 95 Room Air 05/22/19 11:00 98.6 87 18 101/58 (72) 98.6 05/21/19 15:33 2.0 Physical Exam Physical Exam GENERAL: Laying in bed, NAD - HEENT: Pupils equally round. Oropharynx is clear. NGT NECK: Supple. LUNGS: Clear to auscultation. HEART: S1, S2 regular. ABDOMEN: Obese, soft, less distension. NT with hypoactive bowel sounds. Surgical dressings are dry and MACKENZIE drain intact- with continued bilious drainage. New MACKENZIE with serous fluid EXTREMITIES: No gross edema or cyanosis.. Right shoulder incision well-approx stable, clean. SKIN: Warm to touch. No signs of rash. NEUROLOGIC: sleepy, no focal deficit LUE - clean General: Alert, Cooperative, No acute distress Heart: Regular rate (SR), Other (distant heart sounds) Lungs: Crackles, Other Abdomen: Soft, No tenderness, Other (drain with brown fluid) Extremities: No clubbing, No cyanosis, No edema, Normal pulses, No tenderness/swelling Skin: No rashes, No breakdown, No significant lesion, Other (abdominal surgical incision) Labs LABS Laboratory Tests Test 05/21/19 16:39 05/21/19 23:56 05/22/19 05:20 05/22/19 06:08 Glucose (Fingerstick) 187 mg/dL (70-99) 170 mg/dL (70-99) 162 mg/dL (70-99) Sodium Level 143 mmol/L (136-145) Potassium Level 4.9 mmol/L (3.5-5.1) Chloride Level 109 mmol/L (98-107) Carbon Dioxide Level 23 mmol/L (21-32) Anion Gap 11 (6-14) Blood Urea Nitrogen 36 mg/dL (8-26) Creatinine 1.4 mg/dL (0.7-1.3) Estimated GFR (Cockcroft-Gault) 49.7 Glucose Level 180 mg/dL (70-99) Calcium Level 8.9 mg/dL (8.5-10.1) Test 05/22/19 07:31 05/22/19 10:40 05/22/19 11:01 Glucose (Fingerstick) 164 mg/dL (70-99) 162 mg/dL (70-99) Ammonia 14 mcmol/L (11-34) Review of Systems Review of Systems confused, limited rOS Assessment and Plan Assessmemt and Plan Problems Medical Problems: (1) Perforated intestine, nontraumatic Status: Acute Comment Review of Relevant I have reviewed the following items adriano (where applicable) has been applied. Labs Laboratory Tests Test 05/20/19 12:45 05/20/19 18:21 05/20/19 23:30 05/21/19 06:05 Urine Collection Type Unknown Urine Color Yellow Urine Clarity Clear Urine pH 5.0 Urine Specific [place] 1.015 Urine Protein 30 mg/dL (NEG-TRACE) Urine Glucose (UA) 100 mg/dL (NEG) Urine Ketones (Stick) Negative mg/dL (NEG) Urine Blood Moderate (NEG) Urine Nitrite Negative (NEG) Urine Bilirubin Negative (NEG) Urine Urobilinogen Dipstick 0.2 mg/dL (0.2 mg/dL) Urine Leukocyte Esterase Negative (NEG) Urine RBC 3-5 /HPF (0-2) Urine WBC 0 /HPF (0-4) Urine Transitional Epithelial Cells Few /LPF Urine Amorphous Sediment Present /HPF Urine Bacteria 0 /HPF (0-FEW) Urine Hyaline Casts Many /HPF Urine Granular Casts Few /HPF Urine Mucus Marked /LPF Glucose (Fingerstick) 170 mg/dL (70-99) 171 mg/dL (70-99) 208 mg/dL (70-99) Test 05/21/19 11:27 05/21/19 16:39 05/21/19 23:56 05/22/19 05:20 Glucose (Fingerstick) 193 mg/dL (70-99) 187 mg/dL (70-99) 170 mg/dL (70-99) Sodium Level 143 mmol/L (136-145) Potassium Level 4.9 mmol/L (3.5-5.1) Chloride Level 109 mmol/L (98-107) Carbon Dioxide Level 23 mmol/L (21-32) Anion Gap 11 (6-14) Blood Urea Nitrogen 36 mg/dL (8-26) Creatinine 1.4 mg/dL (0.7-1.3) Estimated GFR (Cockcroft-Gault) 49.7 Glucose Level 180 mg/dL (70-99) Calcium Level 8.9 mg/dL (8.5-10.1) Test 05/22/19 06:08 05/22/19 07:31 05/22/19 10:40 05/22/19 11:01 Glucose (Fingerstick) 162 mg/dL (70-99) 164 mg/dL (70-99) 162 mg/dL (70-99) Ammonia 14 mcmol/L (11-34) Laboratory Tests Test 05/21/19 16:39 05/21/19 23:56 05/22/19 05:20 05/22/19 06:08 Glucose (Fingerstick) 187 mg/dL (70-99) 170 mg/dL (70-99) 162 mg/dL (70-99) Sodium Level 143 mmol/L (136-145) Potassium Level 4.9 mmol/L (3.5-5.1) Chloride Level 109 mmol/L (98-107) Carbon Dioxide Level 23 mmol/L (21-32) Anion Gap 11 (6-14) Blood Urea Nitrogen 36 mg/dL (8-26) Creatinine 1.4 mg/dL (0.7-1.3) Estimated GFR (Cockcroft-Gault) 49.7 Glucose Level 180 mg/dL (70-99) Calcium Level 8.9 mg/dL (8.5-10.1) Test 05/22/19 07:31 05/22/19 10:40 05/22/19 11:01 Glucose (Fingerstick) 164 mg/dL (70-99) 162 mg/dL (70-99) Ammonia 14 mcmol/L (11-34) Microbiology 05/15/19 AFB Specimen Processing Tissue - Final, Resulted 05/15/19 Acid Fast Bacilli Culture, Resulted Pending 05/15/19 Gram Stain - Final, Resulted 05/15/19 Fungal Culture, Resulted Pending 05/15/19 Fungal Culture Result 1, Resulted Pending Medications Current Medications Fentanyl Citrate (Fentanyl 2ml Vial) 50 mcg PRN Q15MIN PRN IV PAIN GREATER THAN 3/10 Last administered on 05/08/19 19:27; Start 05/08/19 at 16:30; Stop 05/08/19 at 21:00; Status DC Sodium Chloride 1,000 ml @ 250 mls/hr Q4H IV Last administered on 05/08/19at 16:54; Start 05/08/19 at 16:19; Stop 05/08/19 at 20:18; Status DC Metoclopramide HCl (Reglan Vial) 10 mg 1X ONCE IVP Last administered on 05/08/19 16:51; Start 05/08/19 at 17:00; Stop 05/08/19 at 17:01; Status DC Diphenhydramine HCl (Benadryl) 25 mg 1X ONCE IVP Last administered on 05/08/19at 16:51; Start 05/08/19 at 17:00; Stop 05/08/19 at 17:01; Status DC Iohexol (Omnipaque 350 Mg/ml) 90 ml 1X ONCE IV Last administered on 05/08/19at 17:45; Start 05/08/19 at 17:30; Stop 05/08/19 at 17:31; Status DC Info (CONTRAST GIVEN -- Rx MONITORING) 1 each PRN DAILY PRN MC SEE COMMENTS; Start 05/08/19 at 17:30; Stop 05/10/19 at 17:29; Status DC Hydromorphone HCl (Dilaudid) 1 mg 1X ONCE IV Last administered on 05/08/19at 18:23; Start 05/08/19 at 18:30; Stop 05/08/19 at 18:31; Status DC Piperacillin Sod/ Tazobactam Sod 3.375 gm/Sodium Chloride 50 ml @ 100 mls/hr 1X ONCE IV Last administered on 05/08/19at 19:06; Start 05/08/19 at 19:00; Stop 05/08/19 at 19:29; Status DC Sodium Chloride 1,000 ml @ 1,000 mls/hr 1X ONCE IV Last administered on 05/08/19at 19:06; Start 05/08/19 at 19:00; Stop 05/08/19 at 19:59; Status DC Ondansetron HCl (Zofran) 4 mg STK-MED ONCE .ROUTE ; Start 05/08/19 at 19:34; Stop 05/08/19 at 19:34; Status DC Propofol 20 ml @ As Directed STK-MED ONCE IV ; Start 05/08/19 at 19:34; Stop 05/08/19 at 19:34; Status DC Lidocaine HCl (Lidocaine Pf 2% Vial) 5 ml STK-MED ONCE .ROUTE ; Start 05/08/19 at 19:34; Stop 05/08/19 at 19:34; Status DC Dexamethasone Sodium Phosphate (Decadron) 4 mg STK-MED ONCE .ROUTE ; Start 05/08/19 at 19:34; Stop 05/08/19 at 19:34; Status DC Fentanyl Citrate (Fentanyl 2ml Vial) 100 mcg STK-MED ONCE .ROUTE ; Start 05/08/19 at 19:34; Stop 05/08/19 at 19:34; Status DC Succinylcholine Chloride (Anectine) 200 mg STK-MED ONCE .ROUTE ; Start 05/08/19 at 19:34; Stop 05/08/19 at 19:34; Status DC Rocuronium Valatie (Zemuron) 50 mg STK-MED ONCE .ROUTE ; Start 05/08/19 at 19:34; Stop 05/08/19 at 19:34; Status DC Ondansetron HCl (Zofran) 4 mg PRN Q6HRS PRN IV NAUSEA/VOMITING; Start 05/08/19 at 19:45; Stop 05/08/19 at 23:59; Status DC Fentanyl Citrate (Fentanyl 2ml Vial) 25 mcg PRN Q5MIN PRN IV MILD PAIN 1-3; Start 05/08/19 at 19:45; Stop 05/08/19 at 23:59; Status DC Fentanyl Citrate (Fentanyl 2ml Vial) 50 mcg PRN Q5MIN PRN IV MODERATE TO SEVERE PAIN; Start 05/08/19 at 19:45; Stop 05/08/19 at 23:59; Status DC Ringer's Solution 1,000 ml @ 30 mls/hr Q24H IV Last administered on 05/08/19at 23:06; Start 05/08/19 at 20:00; Stop 05/09/19 at 01:00; Status DC Prochlorperazine Edisylate (Compazine) 5 mg PACU PRN PRN IV NAUSEA, MRX1; Start 05/08/19 at 19:45; Stop 05/08/19 at 23:59; Status DC Insulin Human Lispro (HumaLOG VIAL for OP,RR ONLY) 0-10 units PRN Q1HR PRN SQ PER PROTOCOL; Start 05/08/19 at 19:45; Stop 05/08/19 at 23:59; Status DC Bupivacaine HCl/ Epinephrine Bitart (Sensorcaine-Epi 0.25%-1:[id number] Mpf) 30 ml 1X ONCE INJ Last administered on 05/08/19at 20:32; Start 05/08/19 at 20:00; Stop 05/08/19 at 20:01; Status DC Ketamine HCl (Ketamine) 50 mg STK-MED ONCE .ROUTE ; Start 05/08/19 at 20:12; Stop 05/08/19 at 20:12; Status DC Phenylephrine HCl (PHENYLEPHRINE in 0.9% NACL PF) 1 mg STK-MED ONCE IV ; Start 05/08/19 at 20:33; Stop 05/08/19 at 20:33; Status DC Ephedrine Sulfate (ePHEDrine PF IN SALINE SYRINGE) 50 mg STK-MED ONCE IV ; Start 05/08/19 at 20:36; Stop 05/08/19 at 20:36; Status DC Albumin Human 500 ml @ As Directed STK-MED ONCE IV ; Start 05/08/19 at 20:55; Stop 05/08/19 at 20:55; Status DC Glycopyrrolate (Robinul) 1 mg STK-MED ONCE .ROUTE ; Start 05/08/19 at 21:27; Stop 05/08/19 at 21:27; Status DC Neostigmine Methylsulfate (Neostigmine Methylsulfate) 5 mg STK-MED ONCE .ROUTE ; Start 05/08/19 at 21:27; Stop 05/08/19 at 21:27; Status DC Bupivacaine HCl (Sensorcaine Mpf 0.5%) 30 ml STK-MED ONCE .ROUTE ; Start 05/08/19 at 21:39; Stop 05/08/19 at 21:39; Status DC Epinephrine HCl (Adrenalin) 1 mg STK-MED ONCE .ROUTE ; Start 05/08/19 at 21:39; Stop 05/08/19 at 21:39; Status DC Sevoflurane (Ultane) 60 ml STK-MED ONCE IH ; Start 05/08/19 at 21:44; Stop 05/08/19 at 21:44; Status DC Sodium Chloride 1,000 ml @ 125 mls/hr Q8H IV Last administered on 05/08/19at 23:45; Start 05/08/19 at 22:00; Stop 05/09/19 at 15:21; Status DC Ondansetron HCl (Zofran) 4 mg PRN Q6HRS PRN IVP NAUSEA/VOMITING 1ST CHOICE; Start 05/08/19 at 22:00 Fluconazole/ Sodium Chloride 100 ml @ 100 mls/hr Q24H IV Last administered on 05/13/19at 21:14; Start 05/08/19 at 22:00; Stop 05/14/19 at 10:28; Status DC Hydromorphone HCl (Dilaudid) 1 mg PRN Q4HRS PRN IV SEVERE PAIN 7-10 Last administered on 05/18/19at 10:14; Start 05/08/19 at 22:00; Stop 05/18/19 at 13:06; Status DC Piperacillin Sod/ Tazobactam Sod 3.375 gm/Sodium Chloride 50 ml @ 100 mls/hr Q6HRS IV Last administered on 05/14/19at 05:49; Start 05/09/19 at 00:00; Stop 05/14/19 at 10:28; Status DC Pantoprazole Sodium (PROTONIX VIAL for IV PUSH) 40 mg DAILY IVP Last a dministered on 05/11/19at 09:43; Start 05/09/19 at 09:00; Stop 05/12/19 at 08:30; Status DC Insulin Human Regular 150 unit/ Sodium Chloride 151.5 ml @ 0 mls/hr CONT PRN IV SEE I/O RECORD; Start 05/08/19 at 23:00; Status UNV Insulin Human Regular 150 unit/ Sodium Chloride 151.5 ml @ 0 mls/hr CONT PRN IV SEE I/O RECORD Last administered on 05/08/19at 23:03; Start 05/08/19 at 23:00; Stop 05/12/19 at 13:06; Status DC Dextrose (Dextrose 50%-Water Syringe) 12.5 gm PRN Q15MIN PRN IV LOW BLOOD SUGAR; Start 05/08/19 at 23:00; Stop 05/17/19 at 08:35; Status DC Dextrose 250 ml PRN Q15MIN PRN IV LOW BLOOD SUGAR; Start 05/08/19 at 23:00 Albumin Human 500 ml @ 250 mls/hr 1X ONCE IV Last administered on 05/09/19at 00:10; Start 05/09/19 at 00:30; Stop 05/09/19 at 02:29; Status DC Norepinephrine Bitartrate 250 ml @ 20.156 mls/ hr CONT PRN IV SEE I/O RECORD; Start 05/09/19 at 00:00; Stop 05/12/19 at 13:06; Status DC Dextrose/Sodium Chloride 1,000 ml @ 150 mls/hr Q6H40M IV Last administered on 05/09/19at 12:28; Start 05/09/19 at 08:45; Stop 05/09/19 at 18:30; Status DC Sodium Chloride 500 ml @ 500 mls/hr PRN Q2HR PRN IV SEE COMMENTS; Start 05/09/19 at 11:15 Sodium Chloride 1,000 ml @ 2,190 mls/hr Q28M IV ; Start 05/09/19 at 12:39; Stop 05/09/19 at 13:39; Status DC Sodium Chloride 500 ml @ 1,000 mls/hr PRN Q30MIN PRN IV SEE COMMENTS; Start 05/09/19 at 12:45; Stop 05/09/19 at 12:50; Status DC Norepinephrine Bitartrate 250 ml @ 19.688 mls/ hr CONT PRN IV SEE I/O RECORD; Start 05/09/19 at 12:45; Status Cancel Dobutamine HCl/ Dextrose 250 ml @ 15.75 mls/ hr CONT PRN IV SEE I/O RECORD; Start 05/09/19 at 12:45; Stop 05/12/19 at 13:06; Status DC Insulin Human Lispro (HumaLOG) 0-7 UNITS TIDWMEALS SQ ; Start 05/09/19 at 17:00; Stop 05/09/19 at 19:36; Status DC Dextrose (Dextrose 50%-Water Syringe) 12.5 gm PRN Q15MIN PRN IV SEE COMMENTS; Start 05/09/19 at 15:30; Status UNV Sodium Chloride 1,000 ml @ 60 mls/hr [id number] IV Last administered on 05/10/19at 16:47; Start 05/09/19 at 15:30; Stop 05/12/19 at 10:57; Status DC Insulin Human Lispro (HumaLOG) 0-7 UNITS Q6HRS SQ Last administered on 05/13/19at 05:50; Start 05/10/19 at 00:00; Stop 05/13/19 at 08:27; Status DC Albuterol/ Ipratropium (Duoneb) 3 ml RTQID NEB Last administered on 05/22/19at 11:02; Start 05/10/19 at 08:00 Budesonide (Pulmicort) 0.5 mg RTBID NEB Last administered on 05/22/19at 07:06; Start 05/10/19 at 08:00 Heparin Sodium (Porcine) (Heparin Sodium) 5,000 unit BID SQ Last administered on 05/22/19at 09:13; Start 05/11/19 at 10:00 Phenol (Chloraseptic) 1 spray PRN Q2HR PRN PO SORE THROAT Last administered on 05/11/19at 13:12; Start 05/11/19 at 11:30 Multi-Ingredient Ointment (Analgesic [place]) 1 jazlyn PRN QID PRN TP MUSCLE PAIN; Start 05/11/19 at 11:30 Amino Acids/ Glycerin/ Electrolytes 1,000 ml @ 80 mls/hr [id number] IV Last administered on 05/15/19at 05:59; Start 05/11/19 at 12:00; Stop 05/15/19 at 21:59; Status DC Hydralazine HCl (Apresoline Inj) 10 mg PRN Q4HRS PRN IVP ELEVATED BP, 1ST CHOICE; Start 05/11/19 at 11:45 Pantoprazole Sodium (Protonix) 40 mg DAILYAC PO Last administered on 05/14/19at 06:04; Start 05/12/19 at 09:00; Stop 05/17/19 at 11:29; Status DC Carbidopa/Levodopa (Sinemet 25/100) 1 tab TID PO ; Start 05/12/19 at 14:00; Stop 05/12/19 at 13:40; Status DC Lisinopril (Prinivil) 10 mg DAILY PO Last administered on 05/14/19at 09:14; Start 05/13/19 at 09:00; Stop 05/16/19 at 10:07; Status DC Simvastatin (Zocor) 10 mg QHS PO Last administered on 05/14/19at 21:08; Start 05/12/19 at 21:00 Venlafaxine HCl (Effexor) 75 mg DAILY PO Last administered on 05/12/19at 13:34; Start 05/12/19 at 13:30; Stop 05/12/19 at 14:20; Status DC Primidone (Mysoline) 50 mg DAILY PO ; Start 05/12/19 at 13:45; Stop 05/12/19 at 14:27; Status DC Insulin Glargine (Lantus Syringe) 15 unit QHS SQ Last administered on 05/16/19at 22:25; Start 05/12/19 at 21:00; Stop 05/17/19 at 08:31; Status DC Venlafaxine HCl (Effexor Xr) 75 mg DAILY PO Last administered on 05/14/19at 09:13; Start 05/13/19 at 09:00 Lactobacillus Rhamnosus (Culturelle) 1 cap BID PO Last administered on 05/14/19at 21:08; Start 05/12/19 at 21:00 Primidone (Mysoline) 25 mg BID PO Last administered on 05/14/19at 21:08; Start 05/12/19 at 14:30 Gabapentin (Neurontin) 300 mg PRN QHS PRN PO NEUROPATHIC PAIN Last administered on 05/12/19at 20:53; Start 05/12/19 at 17:45 Acetaminophen (Tylenol) 500 mg PRN Q6HRS PRN PO MILD PAIN / TEMP; Start 05/13/19 at 08:30 Tramadol HCl (Ultram) 50 mg PRN Q6HRS PRN PO PAIN MOD TO SEV Last administered on 05/14/19at 04:27; Start 05/13/19 at 08:30; Stop 05/19/19 at 16:19; Status DC Clonidine HCl (Catapres) 0.1 mg PRN Q1HR PRN PO HYPERTENSION; Start 05/13/19 at 08:30 Ondansetron HCl (Zofran) 4 mg PRN Q6HRS PRN IVP NAUSEA/VOMITING; Start 05/13/19 at 08:30; Status UNV Venlafaxine HCl (Effexor Xr) 37.5 mg BID PO ; Start 05/13/19 at 09:00; Stop 05/13/19 at 08:33; Status DC Iohexol (Omnipaque 240 Mg/ml) 30 ml 1X ONCE PO Last administered on 05/14/19at 08:45; Start 05/14/19 at 08:45; Stop 05/14/19 at 08:48; Status DC Iohexol (Omnipaque 300 Mg/ml) 60 ml 1X ONCE IV Last administered on 05/14/19at 08:45; Start 05/14/19 at 08:45; Stop 05/14/19 at 08:48; Status DC Info (CONTRAST GIVEN -- Rx MONITORING) 1 each PRN DAILY PRN MC SEE COMMENTS; Start 05/14/19 at 09:00; Stop 05/16/19 at 08:59; Status DC Daptomycin 570 mg/ Sodium Chloride 50 ml @ 100 mls/hr Q24H IV Last administered on 05/19/19at 13:21; Start 05/14/19 at 11:30; Stop 05/20/19 at 08:07; Status DC Micafungin Sodium 100 mg/Dextrose 100 ml @ 100 mls/hr Q24H IV Last administered on 05/19/19at 11:32; Start 05/14/19 at 11:00; Stop 05/20/19 at 08:07; Status DC Cefepime HCl (Maxipime) 2 gm Q8HRS IVP Last administered on 05/18/19at 06:25; Start 05/14/19 at 12:00; Stop 05/18/19 at 08:18; Status DC Metronidazole 100 ml @ 100 mls/hr Q8HRS IV Last administered on 05/18/19at 06:28; Start 05/14/19 at 14:00; Stop 05/18/19 at 08:18; Status DC Lidocaine HCl (Buffered Lidocaine 1%) 3 ml STK-MED ONCE .ROUTE ; Start 05/14/19 at 12:43; Stop 05/14/19 at 12:44; Status DC Lidocaine HCl (Buffered Lidocaine 1%) 3 ml 1X ONCE IJ Last administered on 05/14/19at 13:14; Start 05/14/19 at 13:00; Stop 05/14/19 at 13:02; Status DC Info (Tpn Per Pharmacy) 1 each PRN DAILY PRN MC SEE COMMENTS Last administered on 05/18/19at 11:41; Start 05/14/19 at 16:00; Stop 05/19/19 at 11:20; Status DC Sodium Chloride 90 meq/Potassium Chloride 50 meq/ Potassium Phosphate 13.6 mmol/Magnesium Sulfate 10 meq/ Calcium Gluconate 10 meq/ Multivitamins 10 ml/Chromium/ Copper/Manganese/ Seleni/Zn 1 ml/ Total Parenteral Nutrition/Amino Acids/Dextrose/ Fat Emulsion Intravenous 1,512 ml @ 63 mls/hr TPN CONT IV Last administered on 05/15/19at 21:58; Start 05/15/19 at 22:00; Stop 05/16/19 at 21:59; Status DC Lidocaine HCl (Buffered Lidocaine 1%) 3 ml STK-MED ONCE .ROUTE ; Start 05/15/19 at 13:19; Stop 05/15/19 at 13:19; Status DC Midazolam HCl (Versed) 2 mg STK-MED ONCE .ROUTE ; Start 05/15/19 at 13:47; Stop 05/15/19 at 13:47; Status DC Fentanyl Citrate (Fentanyl 2ml Vial) 100 mcg STK-MED ONCE .ROUTE ; Start 05/15/19 at 13:47; Stop 05/15/19 at 13:47; Status DC Flumazenil (Romazicon) 0.5 mg STK-MED ONCE IV ; Start 05/15/19 at 13:47; Stop 05/15/19 at 13:47; Status DC Naloxone HCl (Narcan) 0.4 mg STK-MED ONCE .ROUTE ; Start 05/15/19 at 13:47; Stop 05/15/19 at 13:47; Status DC Lidocaine HCl (Buffered Lidocaine 1%) 4 ml 1X ONCE IJ Last administered on 05/15/19at 14:30; Start 05/15/19 at 14:30; Stop 05/15/19 at 14:38; Status DC Midazolam HCl (Versed) 1 mg 1X ONCE IV Last administered on 05/15/19at 14:30; Start 05/15/19 at 14:30; Stop 05/15/19 at 14:38; Status DC Fentanyl Citrate (Fentanyl 2ml Vial) 50 mcg 1X ONCE IV Last administered on 05/15/19at 14:30; Start 05/15/19 at 14:30; Stop 05/15/19 at 14:38; Status DC Insulin Human Lispro (HumaLOG) 0-9 UNITS TIDWMEALS SQ ; Start 05/16/19 at 17:00; Stop 05/16/19 at 13:29; Status DC Dextrose (Dextrose 50%-Water Syringe) 12.5 gm PRN Q15MIN PRN IV SEE COMMENTS; Start 05/16/19 at 13:15 Insulin Human Regular (HumuLIN R VIAL) 8 unit 1X ONCE IV Last administered on 05/16/19at 13:36; Start 05/16/19 at 13:15; Stop 05/16/19 at 13:22; Status DC Insulin Human Lispro (HumaLOG) 0-9 UNITS Q6HRS SQ Last administered on 05/21/19at 06:12; Start 05/16/19 at 18:00 Sodium Chloride 90 meq/Potassium Chloride 50 meq/ Potassium Phosphate 13.6 mmol/Magnesium Sulfate 10 meq/ Calcium Gluconate 10 meq/ Multivitamins 10 ml/Chromium/ Copper/Manganese/ Seleni/Zn 1 ml/ Total Parenteral Nutrition/Amino Acids/Dextrose/ Fat Emulsion Intravenous 1,512 ml @ 63 mls/hr TPN CONT IV Last administered on 05/16/19at 21:56; Start 05/16/19 at 22:00; Stop 05/17/19 at 21:59; Status DC Sodium Chloride 1,000 ml @ 75 mls/hr [id number] IV Last administered on 05/19/19at 04:50; Start 05/16/19 at 14:45; Stop 05/19/19 at 11:20; Status DC Insulin Glargine (Lantus Syringe) 22 unit QHS SQ Last administered on 05/17/19at 20:46; Start 05/17/19 at 08:30; Stop 05/18/19 at 07:49; Status DC Labetalol HCl (Normodyne Iv Push) 10 mg PRN Q2HR PRN IVP HYPERTENSION, 2ND CHOICE; Start 05/17/19 at 08:30 Insulin Glargine (Lantus Syringe) 10 unit 1X STAT SQ Last administered on 05/17/19at 09:13; Start 05/17/19 at 08:30; Stop 05/17/19 at 08:33; Status DC Pantoprazole Sodium (PROTONIX VIAL for IV PUSH) 40 mg DAILYAC IVP Last administered on 05/22/19at 06:21; Start 05/17/19 at 13:00 Sodium Chloride 60 meq/Potassium Chloride 30 meq/ Potassium Phosphate 13.6 mmol/Magnesium Sulfate 10 meq/ Calcium Gluconate 10 meq/ Multivitamins 10 ml/Chromium/ Copper/Manganese/ Seleni/Zn 1 ml/ Total Parenteral Nutrition/Amino Acids/Dextrose/ Fat Emulsion Intravenous 1,512 ml @ 63 mls/hr TPN CONT IV Last administered on 05/17/19at 23:13; Start 05/17/19 at 22:00; Stop 05/18/19 at 21:59; Status DC Haloperidol Lactate (Haldol Inj) 2 mg 1X ONCE IM ; Start 05/17/19 at 22:30; Stop 05/17/19 at 22:31; Status Cancel Haloperidol Lactate (Haldol Inj) 2 mg 1X ONCE IVP Last administered on 05/17/19at 23:01; Start 05/17/19 at 22:45; Stop 05/17/19 at 22:46; Status DC Lorazepam (Ativan Inj) 1 mg PRN Q6HRS PRN IVP ANXIETY / AGITATION Last administered on 05/18/19at 01:32; Start 05/18/19 at 01:30; Stop 05/18/19 at 07:48; Status DC Haloperidol Lactate (Haldol Inj) 5 mg 1X ONCE IVP Last administered on 05/18/19at 04:41; Start 05/18/19 at 04:30; Stop 05/18/19 at 04:31; Status DC Lorazepam (Ativan Inj) 1 mg 1X ONCE IVP Last administered on 05/18/19at 05:02; Start 05/18/19 at 04:30; Stop 05/18/19 at 04:31; Status DC Lorazepam (Ativan Inj) 2 mg PRN Q4HRS PRN IVP ANXIETY / AGITATION Last administered on 05/19/19at 03:07; Start 05/18/19 at 07:45; Stop 05/19/19 at 07:55; Status DC Insulin Glargine (Lantus Syringe) 35 unit QHS SQ Last administered on 05/21/19at 21:43; Start 05/18/19 at 21:00 Insulin Glargine (Lantus Syringe) 10 unit ONCE STAT SQ Last administered on 05/18/19at 07:47; Start 05/18/19 at 07:47; Stop 05/18/19 at 07:51; Status DC Haloperidol Lactate (Haldol Inj) 5 mg PRN Q6HRS PRN IVP AGITATION 2nd choice Last administered on 05/19/19at 07:07; Start 05/18/19 at 08:00; Stop 05/19/19 at 07:55; Status DC Meropenem 500 mg/ Sodium Chloride 50 ml @ 100 mls/hr Q6HRS IV Last administered on 05/21/19at 05:21; Start 05/18/19 at 09:00; Stop 05/21/19 at 09:28; Status DC Bacitracin (Bacitracin Zinc Oint Pkt) 1 pkt DAILY TP Last administered on 05/19/19at 08:19; Start 05/18/19 at 10:15 Potassium Phosphate 13.6 mmol/Magnesium Sulfate 10 meq/ Calcium Gluconate 10 meq/ Multivitamins 10 ml/Chromium/ Copper/Manganese/ Seleni/Zn 1 ml/ Total Parenteral Nutrition/Amino Acids/Dextrose/ Fat Emulsion Intravenous 1,512 ml @ 63 mls/hr TPN CONT IV Last administered on 05/18/19at 22:35; Start 05/18/19 at 22:00; Stop 05/19/19 at 13:00; Status DC Hydromorphone HCl (Dilaudid) 1 mg PRN Q2HR PRN IV SEVERE PAIN 7-10 Last administered on 05/19/19at 07:07; Start 05/18/19 at 13:15; Stop 05/19/19 at 07:55; Status DC Lacosamide 100 mg/ Dextrose 60 ml @ 120 mls/hr BID IV Last administered on 05/22/19at 09:17; Start 05/18/19 at 15:00 Haloperidol Lactate (Haldol Inj) 2.5 mg PRN Q6HRS PRN IVP AGITATION Last administered on 05/20/19at 23:24; Start 05/19/19 at 08:00 Hydromorphone HCl (Dilaudid) 0.5 mg PRN Q2HR PRN IV SEVERE PAIN 7-10 Last administered on 05/22/19at 04:13; Start 05/19/19 at 08:00 Lorazepam (Ativan Inj) 1 mg PRN Q4HRS PRN IVP ANXIETY / AGITATION Last administered on 05/19/19at 12:38; Start 05/19/19 at 08:00; Stop 05/19/19 at 16:19; Status DC Amino Acids/ Glycerin/ Electrolytes 1,000 ml @ 80 mls/hr [id number] IV Last administered on 05/22/19at 06:13; Start 05/19/19 at 13:00 Sodium Chloride 1,000 ml @ 75 mls/hr [id number] IV Last administered on 05/20/19at 05:13; Start 05/19/19 at 16:30; Stop 05/20/19 at 10:57; Status DC Meropenem 500 mg/ Sodium Chloride 50 ml @ 100 mls/hr Q8HRS IV Last administered on 05/22/19at 06:13; Start 05/21/19 at 14:00; Stop 05/22/19 at 08:24; Status DC Bisacodyl (Dulcolax Supp) 10 mg PRN DAILY PRN [place] CONSTIPATION Last administered on 05/21/19at 16:34; Start 05/21/19 at 15:45 Info (Tpn Per Pharmacy) 1 each PRN DAILY PRN [facility] SEE COMMENTS; Start 05/22/19 at 09:30 Active Scripts Active No Active Prescriptions or Reported Medications Vitals/I & O Vital Sign - Last 24 Hours 05/21/19 05/21/19 05/21/19 05/21/19 14:28 15:33 16:50 17:20 Temp 97.9 97.9 Pulse 97 Resp 19 18 B/P (MAP) 170/65 (100) Pulse Ox 93 O2 Delivery Room Air Nasal Cannula Room Air Room Air O2 Flow Rate 2.0 05/21/19 05/21/19 05/21/19 05/21/19 19:00 19:31 19:31 19:40 Temp 98.1 98.1 Pulse 95 Resp 18 B/P (MAP) 131/68 (89) Pulse Ox 93 95 95 O2 Delivery Room Air Room Air Room Air Room Air 05/21/19 05/22/19 05/22/19 05/22/19 23:00 03:00 04:13 06:19 Temp 98.1 97.6 98.1 97.6 Pulse 100 101 Resp 18 18 B/P (MAP) 138/57 (84) 123/55 (77) Pulse Ox 93 91 O2 Delivery Room Air Room Air Room Air Room Air 05/22/19 05/22/19 05/22/19 05/22/19 07:00 07:07 11:00 11:03 Temp 98.9 98.6 98.9 98.6 Pulse 86 87 Resp 18 18 B/P (MAP) 153/57 (89) 101/58 (72) Pulse Ox 94 95 96 95 O2 Delivery Room Air Room Air Room Air Room Air Intake and Output 05/21/19 05/21/19 05/22/19 15:00 23:00 07:00 Output Total 90 ml 550 ml Balance -90 ml -550 ml HARITHA LARA MD May 22, 2019 11:59
[2019-05-22] MEDS: TPN PER PHARMACY MC PRN (13:18)
--- NOTE | 2019-05-22 13:22 | NUR ---
Pharmacy TPN Dosing Note S: MORIAH BARRAGAN is a 73 year old M Currently receiving Central Continuous TPN started 05/15/19 B:Pertinent PMH: Perforated duodenal ulcer Height: 5 feet, 10 inches Weight: 95.8 kg Current diet: NPO LABS: Sodium: 143 Potassium: 4.9 Chloride: 109 Calcium: 8.9 Corrected Calcium: 10.50 Magnesium: 1.9 CO2: 20 SCr: 1.6 Glucose: 162 Albumin: 2.0 AST: 31 ALT: 39 TPN FORMULA: TPN TYPE: Central Continuous AMINO ACIDS: 70 gm DEXTROSE: 225 gm LIPIDS: 30 gm SODIUM CHLORIDE: 40 mEq POTASSIUM PHOSPHATE: 13.6 mmol MAGNESIUM: 10 mEq CALCIUM: 5 mEq MULTIPLE VITAMIN: 10 ml TRACE ELEMENTS: 1 ml TPN PLAN: Sodium has improved so TPN to resume with addition of free water. Macros adjusted per branch rental manager rec's. R: Resume TPN per plan and ordered formula Will monitor electrolytes, glucose, and tolerance to TPN. Leanna Uriostegui Tatum, 05/22/19 [id number]
--- NOTE | 2019-05-22 14:34 | PDOC ---
PROGRESS NOTES Assessment Assessment Abnormal jerking like movements. Metabolic encephalopathy. ET. Agitation. Delirium. Bowel perforation s/p surgery. Fever. Hyperglycemia. DM. Renal failure. Anemia. HTN. HLD. COPD. Obesity. RECOMMENDATIONS/PLAN: Continue Vimpat 100 mg q12h, will taper off after further improvements. Continue Statin. Treat medical and surgical diseases. Unable to perform MRI on him due to agitation and delirium. HCT: No acute findings. EEG pending. History of Present Illness This is a 73-year-old white male patient was came to the ER of [facility] on 05/08/19 with complaints of severe abdominal pain, nausea, vomiting. He had a right shoulder surgery 2 days prior and has been on nonsteroidal anti-inflammatories for quite some time. Abdomen CT scan shows free air in the right upper quadrant with some perihepatic ascites. Neurology was request for a consultation on 05/18/19 due to abnormal movements, mental status changes, and confusion. 05/21/19: His mentation slightly improved and able to open eyes per commands. Past Medical History Cardiovascular: HTN Pulmonary: No pertinent hx GI: Gastritis, Peptic Ulcer disease Heme/Onc: No pertinent hx Hepatobiliary: No pertinent hx Psych: No pertinent hx Musculoskeletal: Other (shoulder pain) Rheumatologic: No pertinent hx Infectious disease: No pertinent hx ENT: No pertinent hx Renal/: Chronic renal insuff Endocrine: Diabetes Dermatology: No pertinent hx Past Surgical History Right shoulder surgery postop 2 days to this admission. Family History No Significant Social History ALCOHOL: rare Drugs: None Lives: with Family Allergies Coded Allergies: sulfamethoxazole (Verified Allergy, Severe, Altered Mental Status , 05/08/19) trimethoprim (Verified Allergy, Severe, Altered Mental Status , 05/08/19) Sulfa (Sulfonamide Antibiotics) (Verified Allergy, Intermediate, 02/18/19) ciprofloxacin (Verified Allergy, Unknown, rash, 05/08/19) codeine (Verified Allergy, Unknown, Rash, 05/08/19) MEDICATIONS: Refer to MAR REVIEW OF SYSTEMS: Constitutional: Obesity. Head: No traumatic brain or head injury. Skin: No edema, or rash. Ear: No infection. Eyes: No vision loss or color blindness. Nose: No bleeding or purulent discharges. Hearing: Hearing decrease. Neck: No injury. Cardiac: HTN, HLD. Pulmonary: COPD. GI: Abdomen pain. Urinary/genital: UTI. Endocrinologic: Diabetes Mellitus, obesity. Skeletomuscular: Tremors. Neurological: see HP. Psychiatric: Denies drug use/abuse. Otherwise, not [id number] review of systems. PHYSICAL EXAMINATION: General appearance is in subacute distress. HEENT: Normocephalic and nontraumatic. Eyes, nose, ears, and throat are unremarkable. Neck is supple. No lymphadenopathy. No crepitus. Cardiovascular: S1, S2. Pulmonary: decreased to auscultation bilaterally. Abdomen: Bowel sounds are positive? Extremities: No rash, lesions, or edema. No restriction of range of motion NEUROLOGICAL EXAMINATION: Awake. Sitting in chair. Abnormal movements controlled. Not oriented to time, place but knew person. PERRL. EOMI. CN: no focal findings. Muscle tone: Fluctuated. Muscle strength: 4-. DTR: 1+ Plantar reflex: Neutral response bilaterally Gait: not able to walk. Sensory exam: No acute abnormal findings. No other cerebellar signs elicited. F-T-N test not performed due to not follow commands. Objective Objective Vital Signs Date Time Temp Pulse Resp B/P (MAP) Pulse Ox O2 Delivery O2 Flow Rate FiO2 05/22/19 11:03 95 Room Air 05/22/19 11:00 98.6 87 18 101/58 (72) 98.6 05/21/19 15:33 2.0 Intake and Output 05/22/19 07:00 Output Total 640 ml Balance -640 ml Drainage Total 640 ml # Voids 6 # Bowel Movements 3 Vitals Signs Vitals VS - Last 72 Hours, by Label Date Time Temp Pulse Resp B/P (MAP) Pulse Ox O2 Delivery O2 Flow Rate FiO2 05/22/19 11:03 95 Room Air 05/22/19 11:00 98.6 87 18 101/58 (72) 96 Room Air 98.6 05/22/19 08:00 Room Air 05/22/19 07:07 95 Room Air 05/22/19 07:00 98.9 86 18 153/57 (89) 94 Room Air 98.9 05/22/19 06:19 Room Air 05/22/19 04:13 Room Air 05/22/19 03:00 97.6 101 18 123/55 (77) 91 Room Air 97.6 05/21/19 23:00 98.1 100 18 138/57 (84) 93 Room Air 98.1 05/21/19 19:40 Room Air 05/21/19 19:31 95 Room Air 05/21/19 19:31 95 Room Air 05/21/19 19:00 98.1 95 18 131/68 (89) 93 Room Air 98.1 05/21/19 17:20 18 Room Air 05/21/19 16:50 Room Air 05/21/19 15:33 Nasal Cannula 2.0 05/21/19 14:28 97.9 97 19 170/65 (100) 93 Room Air 97.9 05/21/19 10:42 97.8 98 19 160/74 (102) 94 Nasal Cannula 2.0 97.8 05/21/19 10:38 Nasal Cannula 2.0 05/21/19 10:00 Room Air 05/21/19 09:19 Nasal Cannula 2.0 05/21/19 08:00 Nasal Cannula 2.0 05/21/19 07:10 97 Nasal Cannula 2.0 05/21/19 07:00 97.6 97 19 157/70 (99) 94 Nasal Cannula 2.0 97.6 Laboratory Laboratory Laboratory Tests Test 05/21/19 16:39 05/21/19 23:56 05/22/19 05:20 05/22/19 06:08 Glucose (Fingerstick) 187 mg/dL (70-99) 170 mg/dL (70-99) 162 mg/dL (70-99) Sodium Level 143 mmol/L (136-145) Potassium Level 4.9 mmol/L (3.5-5.1) Chloride Level 109 mmol/L (98-107) Carbon Dioxide Level 23 mmol/L (21-32) Anion Gap 11 (6-14) Blood Urea Nitrogen 36 mg/dL (8-26) Creatinine 1.4 mg/dL (0.7-1.3) Estimated GFR (Cockcroft-Gault) 49.7 Glucose Level 180 mg/dL (70-99) Calcium Level 8.9 mg/dL (8.5-10.1) Test 05/22/19 07:31 05/22/19 10:40 05/22/19 11:01 Glucose (Fingerstick) 164 mg/dL (70-99) 162 mg/dL (70-99) Ammonia 14 mcmol/L (11-34) Microbiology 05/15/19 AFB Specimen Processing Tissue - Final, Resulted 05/15/19 Acid Fast Bacilli Culture, Resulted Pending 05/15/19 Gram Stain - Final, Resulted 05/15/19 Fungal Culture, Resulted Pending 05/15/19 Fungal Culture Result 1, Resulted Pending Medication Medications Current Medications Bisacodyl (Dulcolax Supp) 10 mg PRN DAILY PRN [place] CONSTIPATION Last administered on 05/21/19at 16:34; Start 05/21/19 at 15:45 Info (Tpn Per Pharmacy) 1 each PRN DAILY PRN [facility] SEE COMMENTS Last administered on 05/22/19at 13:18; Start 05/22/19 at 09:30 Sodium Chloride 40 meq/Potassium Phosphate 13.6 mmol/Magnesium Sulfate 10 meq/ Calcium Gluconate 5 meq/ Multivitamins 10 ml/Chromium/ Copper/Manganese/ Seleni/Zn 1 ml/ Total Parenteral Nutrition/Amino Acids/Dextrose/ Fat Emulsion Intravenous 1,800 ml @ 75 mls/hr TPN CONT IV ; Start 05/22/19 at 22:00; Stop 05/23/19 at 21:59 Comment Review of Relevant I have reviewed the following items adriano (where applicable) has been applied. PATRICE LOVE MD May 22, 2019 14:34
--- NOTE | 2019-05-22 18:30 | NUR ---
POLYETHYLENE BAG MACHINE OPERATOR stated patients agitation is increasing. Upon assessing the pt he is cool and clammy. VS obtained BP 87/52 HR 120 blood sugar 217 temp WNL. Called Rapid Response. Initiated NS bolus. BP recheck was 79/42 HR 116. Pt transferring to room 111. Gave report to Beth. Called and updated .
[2019-05-22] MEDS ORDERED: NOREPINEPHRIN 8MG/250ML PREMIX 250 ML IV PRN (19:00)
[2019-05-22 19:13] LABS: BASO # 0.1 x10^3/uL (0.0-0.2); BASO % 1 % (0-3); EOS # 0.1 x10^3/uL (0.0-0.7); EOS % 1 % (0-3); HEMATOCRIT 24.8 % (39.0-53.0); HEMOGLOBIN 8.1 g/dL (13.0-17.5); LYMPH # 1.1 x10^3/uL (1.0-4.8); LYMPH % 10 % (24-48); MEAN CORPUSCULAR HEMOGLOBIN 31 pg (25-35); MEAN CORPUSCULAR HGB CONC 33 g/dL (31-37); MEAN CORPUSCULAR VOLUME 95 fL (79-100); MONO # 0.9 x10^3/uL (0.0-1.1); MONO % 8 % (0-9); NEUT # 8.9 x10^3/uL (1.8-7.7); NEUT % 81 % (31-73); PLATELET COUNT 424 x10^3/uL (140-400); RED BLOOD COUNT 2.62 x10^6/uL (4.30-5.70); RED CELL DISTRIBUTION WIDTH 14.4 % (11.5-14.5)
[2019-05-22 19:20] LABS: CALCIUM 8.4 mg/dL (8.5-10.1); CREATININE 1.7 mg/dL (0.7-1.3); GFR 39.7; POTASSIUM 4.9 mmol/L (3.5-5.1)
[2019-05-22 19:26] LABS: ALBUMIN 1.9 g/dL (3.4-5.0); ALBUMIN/GLOBULIN RATIO 0.5 (1.0-1.7); TOTAL BILIRUBIN 0.4 mg/dL (0.2-1.0); TOTAL PROTEIN 6.1 g/dL (6.4-8.2)
--- NOTE | 2019-05-22 19:29 | NUR ---
Rapid Response note: Rapid called on patient due to hypotension. Upon arrival, patient was cool and clammy, patient disoriented but that is no change to patient. Blood glucose was checked. Normal saline bolus initiated and patient transferred to ICU. Levophed was started, labs were drawn. Dr. Begum notified. Will continue to monitor. Addendum: 05/22/19 at 1933 by NITZA MAJOR RN Amended: Links added.
[2019-05-22] MEDS: SIMVASTATIN 10 MG TABLET PO SCH (21:07)
[2019-05-22] MEDS: INSULIN GLARGINE SYRINGE. SQ SCH (21:07)
[2019-05-22] MEDS ORDERED: [UNRECOGNIZED DRUG - OTHER] IV SCH ×9 (22:00)
[2019-05-22] MEDS ORDERED: DEXTROSE 70% IV SCH ×9 (22:00)
[2019-05-22] MEDS ORDERED: AMINO ACID IV SCH ×9 (22:00)
[2019-05-22] MEDS ORDERED: TOTAL PARENTERAL NUTRITION IV SCH ×9 (22:00)
[2019-05-23] VITALS (34 sets, daily range): BP systolic 85–149; BP diastolic 45–80
[2019-05-23] MEDS: INSULIN LISPRO 300 UNITS/3 ML VIAL. SQ SCH ×4 (00:30→17:53)
[2019-05-23 07:21] LABS: CALCIUM 8.4 mg/dL (8.5-10.1); CREATININE 2.4 mg/dL (0.7-1.3); GFR 26.7; MAGNESIUM 2.1 mg/dL (1.8-2.4); PHOSPHORUS 4.4 mg/dL (2.6-4.7); POTASSIUM 5.1 mmol/L (3.5-5.1)
[2019-05-23] MEDS ORDERED: IV NORMAL SALINE 1000ML BAG 1,000 ML IV ONE (08:00)
--- NOTE | 2019-05-23 08:01 | PDOC ---
Infectious Disease Note Subjective Subjective lethargic, became hypotensive and in ICU, GREGG ROS ROS no n/v/d/fever Vital Sign Vital Signs Vital Signs Date Time Temp Pulse Resp B/P (MAP) Pulse Ox O2 Delivery O2 Flow Rate FiO2 05/23/19 06:02 94 24 119/64 (82) 95 Nasal Cannula 3.0 05/23/19 02:31 99.0 99.0 Physical Exam PHYSICAL EXAM GENERAL: Laying in bed, NAD - HEENT: Pupils equally round. Oropharynx is clear. NGT NECK: Supple. LUNGS: Clear to auscultation. HEART: S1, S2 regular. ABDOMEN: Obese, soft, less distension. NT with hypoactive bowel sounds. Surgical dressings are dry and MACKENZIE drain intact- with continued bilious drainage. New MACKENZIE with serous fluid EXTREMITIES: No gross edema or cyanosis.. Right shoulder incision well-approx stable, clean. SKIN: Warm to touch. No signs of rash. NEUROLOGIC: sleepy, no focal deficit LUE - clean Labs Lab Laboratory Tests Test 05/22/19 10:40 05/22/19 11:01 05/22/19 18:23 05/22/19 19:05 Ammonia 14 mcmol/L (11-34) Glucose (Fingerstick) 162 mg/dL (70-99) 217 mg/dL (70-99) White Blood Count 11.0 x10^3/uL (4.0-11.0) Red Blood Count 2.62 x10^6/uL (4.30-5.70) Hemoglobin 8.1 g/dL (13.0-17.5) Hematocrit 24.8 % (39.0-53.0) Mean Corpuscular Volume 95 fL (79-100) Mean Corpuscular Hemoglobin 31 pg (25-35) Mean Corpuscular Hemoglobin Concent 33 g/dL (31-37) Red Cell Distribution Width 14.4 % (11.5-14.5) Platelet Count 424 x10^3/uL (140-400) Neutrophils (%) (Auto) 81 % (31-73) Lymphocytes (%) (Auto) 10 % (24-48) Monocytes (%) (Auto) 8 % (0-9) Eosinophils (%) (Auto) 1 % (0-3) Basophils (%) (Auto) 1 % (0-3) Neutrophils # (Auto) 8.9 x10^3/uL (1.8-7.7) Lymphocytes # (Auto) 1.1 x10^3/uL (1.0-4.8) Monocytes # (Auto) 0.9 x10^3/uL (0.0-1.1) Eosinophils # (Auto) 0.1 x10^3/uL (0.0-0.7) Basophils # (Auto) 0.1 x10^3/uL (0.0-0.2) Sodium Level 143 mmol/L (136-145) Potassium Level 4.9 mmol/L (3.5-5.1) Chloride Level 109 mmol/L (98-107) Carbon Dioxide Level 22 mmol/L (21-32) Anion Gap 12 (6-14) Blood Urea Nitrogen 41 mg/dL (8-26) Creatinine 1.7 mg/dL (0.7-1.3) Estimated GFR (Cockcroft-Gault) 39.7 BUN/Creatinine Ratio 24 (6-20) Glucose Level 234 mg/dL (70-99) Lactic Acid Level 1.4 mmol/L (0.4-2.0) Calcium Level 8.4 mg/dL (8.5-10.1) Total Bilirubin 0.4 mg/dL (0.2-1.0) Aspartate Amino Transf (AST/SGOT) 28 U/L (15-37) Alanine Aminotransferase (ALT/SGPT) 24 U/L (16-63) Alkaline Phosphatase 131 U/L (46-116) Total Protein 6.1 g/dL (6.4-8.2) Albumin 1.9 g/dL (3.4-5.0) Albumin/Globulin Ratio 0.5 (1.0-1.7) Test 05/22/19 21:05 05/23/19 00:24 05/23/19 06:16 05/23/19 06:40 Glucose (Fingerstick) 214 mg/dL (70-99) 301 mg/dL (70-99) 320 mg/dL (70-99) Hemoglobin 7.2 g/dL (13.0-17.5) Sodium Level 142 mmol/L (136-145) Potassium Level 5.1 mmol/L (3.5-5.1) Chloride Level 109 mmol/L (98-107) Carbon Dioxide Level 20 mmol/L (21-32) Anion Gap 13 (6-14) Blood Urea Nitrogen 56 mg/dL (8-26) Creatinine 2.4 mg/dL (0.7-1.3) Estimated GFR (Cockcroft-Gault) 26.7 Glucose Level 355 mg/dL (70-99) Calcium Level 8.4 mg/dL (8.5-10.1) Phosphorus Level 4.4 mg/dL (2.6-4.7) Magnesium Level 2.1 mg/dL (1.8-2.4) Micro Microbiology 05/15/19 AFB Specimen Processing Tissue - Final, Resulted 05/15/19 Acid Fast Bacilli Culture, Resulted Pending 05/15/19 Gram Stain - Final, Resulted 05/15/19 Fungal Culture, Resulted Pending 05/15/19 Fungal Culture Result 1, Resulted Pending Objective Assessment Acute Encephalopathy - Perforated duodenal ulcer s/p repair, 05/08 no apparent cultures, repair failure S/p Abd drain placed 05/15 sce to fluid collection Fever - times one post procedure 05/15 - improved now Leukocytosis - better today- initial Pancytopenia ? in part reactive Abx allergy: Sulfa and cipro w/ rash Acute respiratory failure, now on venti mask -s/p Bronchoscopy with BAL, 05/09. mucous plugging, culture pending GREGG -mild increase Nonobstructing calculus of the right kidney. Recent right shoulder joint replacement, 05/06 at [facility] Plan of Care f/u cultures/labs in am ct head neg d/w surgery D/w nursing d/w need more hydration SULEMAN BASURTO MD May 23, 2019 08:01
--- NOTE | 2019-05-23 08:18 | PDOC ---
SUBJECTIVE ROS f/up for GREGG / CKD and ^Na Patient moved to the ICU today after rapid response overnight. Patient developed hypotension, tachycardia, tachypnea. He currently appears calm and sleepy. Patrick catheter was placed and he is noted to have significant negative fluid balance, mostly associated with MACKENZIE drain. OBJECTIVE Vital Signs Vital Signs Date Time Temp Pulse Resp B/P (MAP) Pulse Ox O2 Delivery O2 Flow Rate FiO2 05/23/19 06:02 94 24 119/64 (82) 95 Nasal Cannula 3.0 05/23/19 02:31 99.0 99.0 I & 0 Intake and Output 05/23/19 07:00 Intake Total 318 ml Output Total 2790 ml Balance -2472 ml Intake Oral 0 ml IV Total 318 ml Output Urine Total 1365 ml Drainage Total 1425 ml PHYSICAL EXAM Physical Exam GEN: Back to being sedated again today. Appears calm overall. In no visible distress, EYES: Sclera is anicteric Conjunctiva Normal EN: No EN Drainage, Mucous Membranes dry NG tube in place NECK: no JVD, no JVP, Supple, no Thyromegaly CVS: S1S2, possible Murmur, No Gallop, No Rub,no Edema RESP: no Rales, no Rhonchi,no Acc. Muscle Use GI: BS + ve, NO Bruit, Min Tender, Non Distended : no CVA tenderness, no Suprapubic Tenderness, Patrick catheter in place now DIAGNOSIS/ASSESSMENT Assessment & Plan ARF: Current and is worse today after yesterday's rapid response. Based on fluid balance over the last few days it appears that he had some negative fluid balance. Urine output has not been well documented. She now has a Patrick in place Fluid boluses been ordered. Outpatient baseline is not available. Continues to have low-grade fevers Marginal oliguria: Reevaluate after fluid bolus Chronic kidney disease stage III underlying with baseline creatinine of 1.5 given other foci of atherosclerotic vascular disease cannot be ruled out. Hypernatremia: Had resolved with PPN. Mild metabolic acidosis, change IV fluids to bicarbonate containing fluids Severe hypoalbuminemia: Presumably associated with recent perforation of viscus and surgery. Continue parental nutrition for now. Transition to tube feeds/ enteral feeding if and when approved by general surgery. TPN changes discussed with PharmD ANEMIA; may need blood transfusion hemoglobin drops below 7. IV iron will not be ordered for now due to ongoing low-grade fevers Right renal calculus: Will require outpatient urology evaluation. No current urology coverage available at this hospital. Await UA. Another CT scan for his intra-abdominal pathology is contemplated in the near future hence imaging studies for this have not been reordered TPN - increase free water. Will need better fingerstick sugar control Discussed Plan of Care with CRUISE AGENT at bedside COMMENT/RELEVANT DATA Meds Current Medications Medications (Trade) Dose Ordered Sig/Ventura Start Time Stop Time Status Last Admin Dose Admin Acetaminophen (Tylenol) 500 mg PRN Q6HRS PRN 05/13/19 08:30 Albumin Human 500 ml @ 250 mls/hr 1X ONCE 05/09/19 00:30 05/09/19 02:29 DC 05/09/19 00:10 250 MLS/HR Albuterol/ Ipratropium (Duoneb) 3 ml RTQID 05/10/19 08:00 05/22/19 20:04 3 ML Amino Acids/ Glycerin/ Electrolytes 1,000 ml @ 80 mls/hr [id number] 05/19/19 13:00 05/22/19 21:59 DC 05/22/19 06:13 80 MLS/HR Bacitracin (Bacitracin Zinc Oint Pkt) 1 pkt DAILY 05/18/19 10:15 05/19/19 08:19 1 PKT Bisacodyl (Dulcolax Supp) 10 mg PRN DAILY PRN 05/21/19 15:45 05/21/19 16:34 10 MG Budesonide (Pulmicort) 0.5 mg RTBID 05/10/19 08:00 05/22/19 20:04 0.5 MG Bupivacaine HCl (Sensorcaine Mpf 0.5%) 30 ml STK-MED ONCE 05/08/19 21:39 05/08/19 21:39 DC Bupivacaine HCl/ Epinephrine Bitart (Sensorcaine-Epi 0.25%-1:[id number] Mpf) 30 ml 1X ONCE 05/08/19 20:00 05/08/19 20:01 DC 05/08/19 20:32 26 ML Carbidopa/Levodopa (Sinemet 25/100) 1 tab TID 05/12/19 14:00 05/12/19 13:40 DC Cefepime HCl (Maxipime) 2 gm Q8HRS 05/14/19 12:00 05/18/19 08:18 DC 05/18/19 06:25 2 GM Clonidine HCl (Catapres) 0.1 mg PRN Q1HR PRN 05/13/19 08:30 Daptomycin 570 mg/ Sodium Chloride 50 ml @ 100 mls/hr Q24H 05/14/19 11:30 05/20/19 08:07 DC 05/19/19 13:21 100 MLS/HR Dexamethasone Sodium Phosphate (Decadron) 4 mg STK-MED ONCE 05/08/19 19:34 05/08/19 19:34 DC Dextrose (Dextrose 50%-Water Syringe) 12.5 gm PRN Q15MIN PRN 05/16/19 13:15 Dextrose/Sodium Chloride 1,000 ml @ 150 mls/hr Q6H40M 05/09/19 08:45 05/09/19 18:30 DC 05/09/19 12:28 150 MLS/HR Diphenhydramine HCl (Benadryl) 25 mg 1X ONCE 05/08/19 17:00 05/08/19 17:01 DC 05/08/19 16:51 25 MG Dobutamine HCl/ Dextrose 250 ml @ 15.75 mls/ hr CONT PRN 05/09/19 12:45 05/12/19 13:06 DC Ephedrine Sulfate (ePHEDrine PF IN SALINE SYRINGE) 50 mg STK-MED ONCE 05/08/19 20:36 05/08/19 20:36 DC Epinephrine HCl (Adrenalin) 1 mg STK-MED ONCE 05/08/19 21:39 05/08/19 21:39 DC Fentanyl Citrate (Fentanyl 2ml Vial) 50 mcg 1X ONCE 05/15/19 14:30 05/15/19 14:38 DC 05/15/19 14:30 50 MCG Fluconazole/ Sodium Chloride 100 ml @ 100 mls/hr Q24H 05/08/19 22:00 05/14/19 10:28 DC 05/13/19 21:14 100 MLS/HR Flumazenil (Romazicon) 0.5 mg STK-MED ONCE 05/15/19 13:47 05/15/19 13:47 DC Gabapentin (Neurontin) 300 mg PRN QHS PRN 05/12/19 17:45 05/12/19 20:53 300 MG Glycopyrrolate (Robinul) 1 mg STK-MED ONCE 05/08/19 21:27 05/08/19 21:27 DC Haloperidol Lactate (Haldol Inj) 2.5 mg PRN Q6HRS PRN 05/19/19 08:00 05/20/19 23:24 2.5 MG Heparin Sodium (Porcine) (Heparin Sodium) 5,000 unit BID 05/11/19 10:00 05/22/19 21:07 5,000 UNIT Hydralazine HCl (Apresoline Inj) 10 mg PRN Q4HRS PRN 05/11/19 11:45 Hydromorphone HCl (Dilaudid) 0.5 mg PRN Q2HR PRN 05/19/19 08:00 05/22/19 21:33 0.5 MG Info (CONTRAST GIVEN -- Rx MONITORING) 1 each PRN DAILY PRN 05/14/19 09:00 05/16/19 08:59 DC Info (Tpn Per Pharmacy) 1 each PRN DAILY PRN 05/22/19 09:30 05/22/19 13:18 1 EACH Insulin Glargine (Lantus Syringe) 10 unit ONCE STAT 05/18/19 07:47 05/18/19 07:51 DC 05/18/19 07:47 10 UNIT Insulin Human Lispro (HumaLOG VIAL for OP,RR ONLY) 0-10 units PRN Q1HR PRN 05/08/19 19:45 05/08/19 23:59 DC Insulin Human Lispro (HumaLOG) 0-9 UNITS Q6HRS 05/16/19 18:00 05/23/19 06:26 9 UNITS Insulin Human Regular (HumuLIN R VIAL) 8 unit 1X ONCE 05/16/19 13:15 05/16/19 13:22 DC 05/16/19 13:36 8 UNIT Insulin Human Regular 150 unit/ Sodium Chloride 151.5 ml @ 0 mls/hr CONT PRN 05/08/19 23:00 05/12/19 13:06 DC 05/08/19 23:03 5 MLS/HR Iohexol (Omnipaque 240 Mg/ml) 30 ml 1X ONCE 05/14/19 08:45 05/14/19 08:48 DC 05/14/19 08:45 30 ML Iohexol (Omnipaque 300 Mg/ml) 60 ml 1X ONCE 05/14/19 08:45 05/14/19 08:48 DC 05/14/19 08:45 60 ML Iohexol (Omnipaque 350 Mg/ml) 90 ml 1X ONCE 05/08/19 17:30 05/08/19 17:31 DC 05/08/19 17:45 90 ML Ketamine HCl (Ketamine) 50 mg STK-MED ONCE 05/08/19 20:12 05/08/19 20:12 DC Labetalol HCl (Normodyne Iv Push) 10 mg PRN Q2HR PRN 05/17/19 08:30 Lacosamide 100 mg/ Dextrose 60 ml @ 120 mls/hr BID 05/18/19 15:00 05/22/19 21:38 120 MLS/HR Lactobacillus Rhamnosus (Culturelle) 1 cap BID 05/12/19 21:00 05/22/19 21:07 1 CAP Lidocaine HCl (Buffered Lidocaine 1%) 4 ml 1X ONCE 05/15/19 14:30 05/15/19 14:38 DC 05/15/19 14:30 4 ML Lidocaine HCl (Lidocaine Pf 2% Vial) 5 ml STK-MED ONCE 05/08/19 19:34 05/08/19 19:34 DC Lisinopril (Prinivil) 10 mg DAILY 05/13/19 09:00 05/16/19 10:07 DC 05/14/19 09:14 10 MG Lorazepam (Ativan Inj) 1 mg PRN Q4HRS PRN 05/19/19 08:00 05/19/19 16:19 DC 05/19/19 12:38 1 MG Meropenem 500 mg/ Sodium Chloride 50 ml @ 100 mls/hr Q8HRS 05/21/19 14:00 05/22/19 08:24 DC 05/22/19 06:13 100 MLS/HR Metoclopramide HCl (Reglan Vial) 10 mg 1X ONCE 05/08/19 17:00 05/08/19 17:01 DC 05/08/19 16:51 10 MG Metronidazole 100 ml @ 100 mls/hr Q8HRS 05/14/19 14:00 05/18/19 08:18 DC 05/18/19 06:28 100 MLS/HR Micafungin Sodium 100 mg/Dextrose 100 ml @ 100 mls/hr Q24H 05/14/19 11:00 05/20/19 08:07 DC 05/19/19 11:32 100 MLS/HR Midazolam HCl (Versed) 1 mg 1X ONCE 05/15/19 14:30 05/15/19 14:38 DC 05/15/19 14:30 1 MG Multi-Ingredient Ointment (Analgesic [place]) 1 jazlyn PRN QID PRN 05/11/19 11:30 Naloxone HCl (Narcan) 0.4 mg STK-MED ONCE 05/15/19 13:47 05/15/19 13:47 DC Neostigmine Methylsulfate (Neostigmine Methylsulfate) 5 mg STK-MED ONCE 05/08/19 21:27 05/08/19 21:27 DC Norepinephrine Bitartrate 250 ml @ 17.961 mls/ hr CONT PRN 05/22/19 19:00 Ondansetron HCl (Zofran) 4 mg PRN Q6HRS PRN 05/13/19 08:30 UNV Pantoprazole Sodium (PROTONIX VIAL for IV PUSH) 40 mg DAILYAC 05/17/19 13:00 05/22/19 06:21 40 MG Pantoprazole Sodium (Protonix) 40 mg DAILYAC 05/12/19 09:00 05/17/19 11:29 DC 05/14/19 06:04 40 MG Phenol (Chloraseptic) 1 spray PRN Q2HR PRN 05/11/19 11:30 05/11/19 13:12 1 SPRAY Phenylephrine HCl (PHENYLEPHRINE in 0.9% NACL PF) 1 mg STK-MED ONCE 05/08/19 20:33 05/08/19 20:33 DC Piperacillin Sod/ Tazobactam Sod 3.375 gm/Sodium Chloride 50 ml @ 100 mls/hr Q6HRS 05/09/19 00:00 05/14/19 10:28 DC 05/14/19 05:49 100 MLS/HR Potassium Phosphate 13.6 mmol/Magnesium Sulfate 10 meq/ Calcium Gluconate 10 meq/ Multivitamins 10 ml/Chromium/ Copper/Manganese/ Seleni/Zn 1 ml/ Total Parenteral Nutrition/Amino Acids/Dextrose/ Fat Emulsion Intravenous 1,512 ml @ 63 mls/hr TPN CONT 05/18/19 22:00 05/19/19 13:00 DC 05/18/19 22:35 63 MLS/HR Primidone (Mysoline) 25 mg BID 05/12/19 14:30 05/22/19 21:07 25 MG Prochlorperazine Edisylate (Compazine) 5 mg PACU PRN PRN 05/08/19 19:45 05/08/19 23:59 DC Propofol 20 ml @ As Directed STK-MED ONCE 05/08/19 19:34 05/08/19 19:34 DC Ringer's Solution 1,000 ml @ 30 mls/hr Q24H 05/08/19 20:00 05/09/19 01:00 DC 05/08/19 23:06 30 MLS/HR Rocuronium [place] (Zemuron) 50 mg STK-MED ONCE 05/08/19 19:34 05/08/19 19:34 DC Sevoflurane (Ultane) 60 ml STK-MED ONCE 05/08/19 21:44 05/08/19 21:44 DC Simvastatin (Zocor) 10 mg QHS 05/12/19 21:00 05/22/19 21:07 10 MG Sodium Chloride 1,000 ml @ 1,000 mls/hr 1X ONCE 05/23/19 08:00 05/23/19 08:59 Sodium Chloride 40 meq/Potassium Phosphate 13.6 mmol/Magnesium Sulfate 10 meq/ Calcium Gluconate 5 meq/ Multivitamins 10 ml/Chromium/ Copper/Manganese/ Seleni/Zn 1 ml/ Total Parenteral Nutrition/Amino Acids/Dextrose/ Fat Emulsion Intravenous 1,800 ml @ 75 mls/hr TPN CONT 05/22/19 22:00 05/23/19 21:59 05/22/19 21:40 75 MLS/HR Sodium Chloride 60 meq/Potassium Chloride 30 meq/ Potassium Phosphate 13.6 mmol/Magnesium Sulfate 10 meq/ Calcium Gluconate 10 meq/ Multivitamins 10 ml/Chromium/ Copper/Manganese/ Seleni/Zn 1 ml/ Total Parenteral Nutrition/Amino Acids/Dextrose/ Fat Emulsion Intravenous 1,512 ml @ 63 mls/hr TPN CONT 05/17/19 22:00 05/18/19 21:59 DC 05/17/19 23:13 63 MLS/HR Sodium Chloride 90 meq/Potassium Chloride 50 meq/ Potassium Phosphate 13.6 mmol/Magnesium Sulfate 10 meq/ Calcium Gluconate 10 meq/ Multivitamins 10 ml/Chromium/ Copper/Manganese/ Seleni/Zn 1 ml/ Total Parenteral Nutrition/Amino Acids/Dextrose/ Fat Emulsion Intravenous 1,512 ml @ 63 mls/hr TPN CONT 05/16/19 22:00 05/17/19 21:59 DC 05/16/19 21:56 63 MLS/HR Succinylcholine Chloride (Anectine) 200 mg STK-MED ONCE 05/08/19 19:34 05/08/19 19:34 DC Tramadol HCl (Ultram) 50 mg PRN Q6HRS PRN 05/13/19 08:30 05/19/19 16:19 DC 05/14/19 04:27 50 MG Venlafaxine HCl (Effexor Xr) 37.5 mg BID 05/13/19 09:00 05/13/19 08:33 DC Venlafaxine HCl (Effexor) 75 mg DAILY 05/12/19 13:30 05/12/19 14:20 DC 05/12/19 13:34 75 MG Lab Laboratory Tests Test 05/22/19 10:40 05/22/19 11:01 05/22/19 18:23 05/22/19 19:05 Ammonia 14 mcmol/L (11-34) Glucose (Fingerstick) 162 mg/dL (70-99) 217 mg/dL (70-99) White Blood Count 11.0 x10^3/uL (4.0-11.0) Red Blood Count 2.62 x10^6/uL (4.30-5.70) Hemoglobin 8.1 g/dL (13.0-17.5) Hematocrit 24.8 % (39.0-53.0) Mean Corpuscular Volume 95 fL (79-100) Mean Corpuscular Hemoglobin 31 pg (25-35) Mean Corpuscular Hemoglobin Concent 33 g/dL (31-37) Red Cell Distribution Width 14.4 % (11.5-14.5) Platelet Count 424 x10^3/uL (140-400) Neutrophils (%) (Auto) 81 % (31-73) Lymphocytes (%) (Auto) 10 % (24-48) Monocytes (%) (Auto) 8 % (0-9) Eosinophils (%) (Auto) 1 % (0-3) Basophils (%) (Auto) 1 % (0-3) Neutrophils # (Auto) 8.9 x10^3/uL (1.8-7.7) Lymphocytes # (Auto) 1.1 x10^3/uL (1.0-4.8) Monocytes # (Auto) 0.9 x10^3/uL (0.0-1.1) Eosinophils # (Auto) 0.1 x10^3/uL (0.0-0.7) Basophils # (Auto) 0.1 x10^3/uL (0.0-0.2) Sodium Level 143 mmol/L (136-145) Potassium Level 4.9 mmol/L (3.5-5.1) Chloride Level 109 mmol/L (98-107) Carbon Dioxide Level 22 mmol/L (21-32) Anion Gap 12 (6-14) Blood Urea Nitrogen 41 mg/dL (8-26) Creatinine 1.7 mg/dL (0.7-1.3) Estimated GFR (Cockcroft-Gault) 39.7 BUN/Creatinine Ratio 24 (6-20) Glucose Level 234 mg/dL (70-99) Lactic Acid Level 1.4 mmol/L (0.4-2.0) Calcium Level 8.4 mg/dL (8.5-10.1) Total Bilirubin 0.4 mg/dL (0.2-1.0) Aspartate Amino Transf (AST/SGOT) 28 U/L (15-37) Alanine Aminotransferase (ALT/SGPT) 24 U/L (16-63) Alkaline Phosphatase 131 U/L (46-116) Total Protein 6.1 g/dL (6.4-8.2) Albumin 1.9 g/dL (3.4-5.0) Albumin/Globulin Ratio 0.5 (1.0-1.7) Test 05/22/19 21:05 05/23/19 00:24 05/23/19 06:16 05/23/19 06:40 Glucose (Fingerstick) 214 mg/dL (70-99) 301 mg/dL (70-99) 320 mg/dL (70-99) Hemoglobin 7.2 g/dL (13.0-17.5) Sodium Level 142 mmol/L (136-145) Potassium Level 5.1 mmol/L (3.5-5.1) Chloride Level 109 mmol/L (98-107) Carbon Dioxide Level 20 mmol/L (21-32) Anion Gap 13 (6-14) Blood Urea Nitrogen 56 mg/dL (8-26) Creatinine 2.4 mg/dL (0.7-1.3) Estimated GFR (Cockcroft-Gault) 26.7 Glucose Level 355 mg/dL (70-99) Calcium Level 8.4 mg/dL (8.5-10.1) Phosphorus Level 4.4 mg/dL (2.6-4.7) Magnesium Level 2.1 mg/dL (1.8-2.4) Results All relevant outside records, renal labs, imaging studies, telemetry/EKG's were reviewed. CHAS BASURTO MD May 23, 2019 08:18
[2019-05-23] MEDS: BUDESONIDE 0.5 MG/2 ML NEBU. NEB SCH ×2 (08:20→19:28)
[2019-05-23] MEDS: IPRATRPIUM/ALBUTEROL 0.5/2.5MG 3 ML NEBU. NEB SCH ×4 (08:20→19:28)
[2019-05-23] MEDS: PANTOPRAZOLE IV PUSH 40 MG VIAL. IVP SCH (08:21)
[2019-05-23] MEDS: LACOSAMIDE 100 MG in IV DEXTROSE 5% 50 ML IV SCH (08:22)
--- NOTE | 2019-05-23 08:27 | NUR ---
SS following up with discharge planning. Pt transferred to ICU from fourth floor due to medical decline. Pt accepted at [facility], ; fax [phone], since 05/16/2019. SS phoned and faxed clinical updates to [facility]. SS will continue to follow for discharge planning.
[2019-05-23] MEDS ORDERED: SODIUM BICARBONATE IV ONE (08:30)
[2019-05-23] MEDS ORDERED: STERILE WATER IV ONE (08:30)
[2019-05-23] MEDS: VENLAFAXINE XR 37.5 MG CAP.ER.24H. PO SCH (08:48)
[2019-05-23] MEDS: LACTOBACILLUS RHAMNOSUS GG 1 CAPSULE. PO SCH (08:49)
[2019-05-23] MEDS: PRIMIDONE 50 MG TABLET PO SCH ×2 (08:49→21:01)
[2019-05-23] MEDS: BACITRACIN TOPICAL OINT PACKET. TP SCH (09:00)
[2019-05-23] MEDS: HEPARIN for SUB-Q USE 5,000 UNIT/ML VIAL. SQ SCH ×2 (09:09→21:02)
--- NOTE | 2019-05-23 09:27 | PDOC ---
PULMONARY PROGRESS NOTES Subjective TRANSFERED TO ICU FOR HYPOTENSION MILD REST DISTRESS Vitals Vital Signs Date Time Temp Pulse Resp B/P (MAP) Pulse Ox O2 Delivery O2 Flow Rate FiO2 05/23/19 08:21 92 Room Air 05/23/19 06:02 94 24 119/64 (82) 3.0 05/23/19 02:31 99.0 99.0 Comments UNABLE TO ROS General: Confused Lungs: Crackles, Other Cardiovascular: S1, S2 Abdomen: Soft, Non-tender, Other (no mass) Extremities: Other (EDEMA) Skin: Warm Labs Laboratory Tests Test 05/21/19 11:27 05/21/19 16:39 05/21/19 23:56 05/22/19 05:20 Glucose (Fingerstick) 193 mg/dL (70-99) 187 mg/dL (70-99) 170 mg/dL (70-99) Sodium Level 143 mmol/L (136-145) Potassium Level 4.9 mmol/L (3.5-5.1) Chloride Level 109 mmol/L (98-107) Carbon Dioxide Level 23 mmol/L (21-32) Anion Gap 11 (6-14) Blood Urea Nitrogen 36 mg/dL (8-26) Creatinine 1.4 mg/dL (0.7-1.3) Estimated GFR (Cockcroft-Gault) 49.7 Glucose Level 180 mg/dL (70-99) Calcium Level 8.9 mg/dL (8.5-10.1) Test 05/22/19 06:08 05/22/19 07:31 05/22/19 10:40 05/22/19 11:01 Glucose (Fingerstick) 162 mg/dL (70-99) 164 mg/dL (70-99) 162 mg/dL (70-99) Ammonia 14 mcmol/L (11-34) Test 05/22/19 18:23 05/22/19 19:05 05/22/19 21:05 05/23/19 00:24 Glucose (Fingerstick) 217 mg/dL (70-99) 214 mg/dL (70-99) 301 mg/dL (70-99) White Blood Count 11.0 x10^3/uL (4.0-11.0) Red Blood Count 2.62 x10^6/uL (4.30-5.70) Hemoglobin 8.1 g/dL (13.0-17.5) Hematocrit 24.8 % (39.0-53.0) Mean Corpuscular Volume 95 fL (79-100) Mean Corpuscular Hemoglobin 31 pg (25-35) Mean Corpuscular Hemoglobin Concent 33 g/dL (31-37) Red Cell Distribution Width 14.4 % (11.5-14.5) Platelet Count 424 x10^3/uL (140-400) Neutrophils (%) (Auto) 81 % (31-73) Lymphocytes (%) (Auto) 10 % (24-48) Monocytes (%) (Auto) 8 % (0-9) Eosinophils (%) (Auto) 1 % (0-3) Basophils (%) (Auto) 1 % (0-3) Neutrophils # (Auto) 8.9 x10^3/uL (1.8-7.7) Lymphocytes # (Auto) 1.1 x10^3/uL (1.0-4.8) Monocytes # (Auto) 0.9 x10^3/uL (0.0-1.1) Eosinophils # (Auto) 0.1 x10^3/uL (0.0-0.7) Basophils # (Auto) 0.1 x10^3/uL (0.0-0.2) Sodium Level 143 mmol/L (136-145) Potassium Level 4.9 mmol/L (3.5-5.1) Chloride Level 109 mmol/L (98-107) Carbon Dioxide Level 22 mmol/L (21-32) Anion Gap 12 (6-14) Blood Urea Nitrogen 41 mg/dL (8-26) Creatinine 1.7 mg/dL (0.7-1.3) Estimated GFR (Cockcroft-Gault) 39.7 BUN/Creatinine Ratio 24 (6-20) Glucose Level 234 mg/dL (70-99) Lactic Acid Level 1.4 mmol/L (0.4-2.0) Calcium Level 8.4 mg/dL (8.5-10.1) Total Bilirubin 0.4 mg/dL (0.2-1.0) Aspartate Amino Transf (AST/SGOT) 28 U/L (15-37) Alanine Aminotransferase (ALT/SGPT) 24 U/L (16-63) Alkaline Phosphatase 131 U/L (46-116) Total Protein 6.1 g/dL (6.4-8.2) Albumin 1.9 g/dL (3.4-5.0) Albumin/Globulin Ratio 0.5 (1.0-1.7) Test 05/23/19 06:16 05/23/19 06:40 Glucose (Fingerstick) 320 mg/dL (70-99) Hemoglobin 7.2 g/dL (13.0-17.5) Sodium Level 142 mmol/L (136-145) Potassium Level 5.1 mmol/L (3.5-5.1) Chloride Level 109 mmol/L (98-107) Carbon Dioxide Level 20 mmol/L (21-32) Anion Gap 13 (6-14) Blood Urea Nitrogen 56 mg/dL (8-26) Creatinine 2.4 mg/dL (0.7-1.3) Estimated GFR (Cockcroft-Gault) 26.7 Glucose Level 355 mg/dL (70-99) Calcium Level 8.4 mg/dL (8.5-10.1) Phosphorus Level 4.4 mg/dL (2.6-4.7) Magnesium Level 2.1 mg/dL (1.8-2.4) Laboratory Tests Test 05/22/19 10:40 05/22/19 11:01 05/22/19 18:23 05/22/19 19:05 Ammonia 14 mcmol/L (11-34) Glucose (Fingerstick) 162 mg/dL (70-99) 217 mg/dL (70-99) White Blood Count 11.0 x10^3/uL (4.0-11.0) Red Blood Count 2.62 x10^6/uL (4.30-5.70) Hemoglobin 8.1 g/dL (13.0-17.5) Hematocrit 24.8 % (39.0-53.0) Mean Corpuscular Volume 95 fL (79-100) Mean Corpuscular Hemoglobin 31 pg (25-35) Mean Corpuscular Hemoglobin Concent 33 g/dL (31-37) Red Cell Distribution Width 14.4 % (11.5-14.5) Platelet Count 424 x10^3/uL (140-400) Neutrophils (%) (Auto) 81 % (31-73) Lymphocytes (%) (Auto) 10 % (24-48) Monocytes (%) (Auto) 8 % (0-9) Eosinophils (%) (Auto) 1 % (0-3) Basophils (%) (Auto) 1 % (0-3) Neutrophils # (Auto) 8.9 x10^3/uL (1.8-7.7) Lymphocytes # (Auto) 1.1 x10^3/uL (1.0-4.8) Monocytes # (Auto) 0.9 x10^3/uL (0.0-1.1) Eosinophils # (Auto) 0.1 x10^3/uL (0.0-0.7) Basophils # (Auto) 0.1 x10^3/uL (0.0-0.2) Sodium Level 143 mmol/L (136-145) Potassium Level 4.9 mmol/L (3.5-5.1) Chloride Level 109 mmol/L (98-107) Carbon Dioxide Level 22 mmol/L (21-32) Anion Gap 12 (6-14) Blood Urea Nitrogen 41 mg/dL (8-26) Creatinine 1.7 mg/dL (0.7-1.3) Estimated GFR (Cockcroft-Gault) 39.7 BUN/Creatinine Ratio 24 (6-20) Glucose Level 234 mg/dL (70-99) Lactic Acid Level 1.4 mmol/L (0.4-2.0) Calcium Level 8.4 mg/dL (8.5-10.1) Total Bilirubin 0.4 mg/dL (0.2-1.0) Aspartate Amino Transf (AST/SGOT) 28 U/L (15-37) Alanine Aminotransferase (ALT/SGPT) 24 U/L (16-63) Alkaline Phosphatase 131 U/L (46-116) Total Protein 6.1 g/dL (6.4-8.2) Albumin 1.9 g/dL (3.4-5.0) Albumin/Globulin Ratio 0.5 (1.0-1.7) Test 05/22/19 21:05 05/23/19 00:24 05/23/19 06:16 05/23/19 06:40 Glucose (Fingerstick) 214 mg/dL (70-99) 301 mg/dL (70-99) 320 mg/dL (70-99) Hemoglobin 7.2 g/dL (13.0-17.5) Sodium Level 142 mmol/L (136-145) Potassium Level 5.1 mmol/L (3.5-5.1) Chloride Level 109 mmol/L (98-107) Carbon Dioxide Level 20 mmol/L (21-32) Anion Gap 13 (6-14) Blood Urea Nitrogen 56 mg/dL (8-26) Creatinine 2.4 mg/dL (0.7-1.3) Estimated GFR (Cockcroft-Gault) 26.7 Glucose Level 355 mg/dL (70-99) Calcium Level 8.4 mg/dL (8.5-10.1) Phosphorus Level 4.4 mg/dL (2.6-4.7) Magnesium Level 2.1 mg/dL (1.8-2.4) Medications Active Scripts Medications Dose Route/Sig Max Daily Dose Days Date Category Venlafaxine Hcl 75 Mg Tablet Unknown Dose PO DAILY 02/18/19 Reported Simvastatin 10 Mg Tablet 10 Mg PO DAILY 02/18/19 Reported Metformin Hcl 1,000 Mg Tablet 1,000 Mg PO BIDWMEALS 02/18/19 Reported Meloxicam 15 Mg Tablet Unknown Dose PO DAILY 02/18/19 Reported Lisinopril 10 Mg Tablet Unknown Dose PO DAILY 02/18/19 Reported Humalog (Insulin Lispro) 100 Unit/1 Ml Cartridge 100 Unit SQ 02/18/19 Reported Sinemet 25-100 Mg Tablet (Carbidopa/Levodopa) 1 Each Tablet 1 Tab PO TID 02/18/19 Reported Impression . IMPRESSION: 1. EXPECTED RESP FAILURE status post repair of a perforated duodenal ulcer. 2. Status post laparoscopy with open laparotomy for closure of a duodenal ulcer with Dawood patch. 05/08 3. Acute exacerbation of chronic obstructive pulmonary disease, resolving. 4. Tobacco dependence. 5. Hypertension. 6. Recent right shoulder repair. 7. ACUTE BLOOD LOSS ANEMIA WILL TRANSFUSE IF LESS THAN 7 8. Fever. 9. Possible sepsis present upon admission. 10. CT-guided abdominal drain placement as described. 05/15 11. DELIRIUM 12. HYPOTENSION SUSPEC VOLUME IS LOW Plan . IV FLUIDS D/W DR BASURTO ID FOLLOW SURGERY INPUT WILL CONTINUE CURRENT SUPPORT ANITBX PER ID PULMONARY HYGIENE D/C TG CASTRO MD May 23, 2019 09:27
--- NOTE | 2019-05-23 10:41 | PDOC ---
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 05/23/19 1041: SURGICAL PROGRESS NOTE Subjective seen with nursing ongoing pressor support agitated, restless Vital Signs Vital Signs Date Time Temp Pulse Resp B/P (MAP) Pulse Ox O2 Delivery O2 Flow Rate FiO2 05/23/19 09:00 91 24 101/45 (63) 94 Room Air 05/23/19 08:00 3.0 05/23/19 07:00 99.2 99.2 I&O Intake and Output 05/23/19 07:00 Intake Total 318 ml Output Total 2900 ml Balance -2582 ml Intake Oral 0 ml IV Total 318 ml Output Urine Total 1415 ml Drainage Total 1485 ml PATIENT HAS A FENTON: Yes General: Other (confusion, restless ) Abdomen: Soft, Other (tender on exam, thang bilious) Labs Laboratory Tests Test 05/21/19 11:27 05/21/19 16:39 05/21/19 23:56 05/22/19 05:20 Glucose (Fingerstick) 193 mg/dL (70-99) 187 mg/dL (70-99) 170 mg/dL (70-99) Sodium Level 143 mmol/L (136-145) Potassium Level 4.9 mmol/L (3.5-5.1) Chloride Level 109 mmol/L (98-107) Carbon Dioxide Level 23 mmol/L (21-32) Anion Gap 11 (6-14) Blood Urea Nitrogen 36 mg/dL (8-26) Creatinine 1.4 mg/dL (0.7-1.3) Estimated GFR (Cockcroft-Gault) 49.7 Glucose Level 180 mg/dL (70-99) Calcium Level 8.9 mg/dL (8.5-10.1) Test 05/22/19 06:08 05/22/19 07:31 05/22/19 10:40 05/22/19 11:01 Glucose (Fingerstick) 162 mg/dL (70-99) 164 mg/dL (70-99) 162 mg/dL (70-99) Ammonia 14 mcmol/L (11-34) Test 05/22/19 18:23 05/22/19 19:05 05/22/19 21:05 05/23/19 00:24 Glucose (Fingerstick) 217 mg/dL (70-99) 214 mg/dL (70-99) 301 mg/dL (70-99) White Blood Count 11.0 x10^3/uL (4.0-11.0) Red Blood Count 2.62 x10^6/uL (4.30-5.70) Hemoglobin 8.1 g/dL (13.0-17.5) Hematocrit 24.8 % (39.0-53.0) Mean Corpuscular Volume 95 fL (79-100) Mean Corpuscular Hemoglobin 31 pg (25-35) Mean Corpuscular Hemoglobin Concent 33 g/dL (31-37) Red Cell Distribution Width 14.4 % (11.5-14.5) Platelet Count 424 x10^3/uL (140-400) Neutrophils (%) (Auto) 81 % (31-73) Lymphocytes (%) (Auto) 10 % (24-48) Monocytes (%) (Auto) 8 % (0-9) Eosinophils (%) (Auto) 1 % (0-3) Basophils (%) (Auto) 1 % (0-3) Neutrophils # (Auto) 8.9 x10^3/uL (1.8-7.7) Lymphocytes # (Auto) 1.1 x10^3/uL (1.0-4.8) Monocytes # (Auto) 0.9 x10^3/uL (0.0-1.1) Eosinophils # (Auto) 0.1 x10^3/uL (0.0-0.7) Basophils # (Auto) 0.1 x10^3/uL (0.0-0.2) Sodium Level 143 mmol/L (136-145) Potassium Level 4.9 mmol/L (3.5-5.1) Chloride Level 109 mmol/L (98-107) Carbon Dioxide Level 22 mmol/L (21-32) Anion Gap 12 (6-14) Blood Urea Nitrogen 41 mg/dL (8-26) Creatinine 1.7 mg/dL (0.7-1.3) Estimated GFR (Cockcroft-Gault) 39.7 BUN/Creatinine Ratio 24 (6-20) Glucose Level 234 mg/dL (70-99) Lactic Acid Level 1.4 mmol/L (0.4-2.0) Calcium Level 8.4 mg/dL (8.5-10.1) Total Bilirubin 0.4 mg/dL (0.2-1.0) Aspartate Amino Transf (AST/SGOT) 28 U/L (15-37) Alanine Aminotransferase (ALT/SGPT) 24 U/L (16-63) Alkaline Phosphatase 131 U/L (46-116) Total Protein 6.1 g/dL (6.4-8.2) Albumin 1.9 g/dL (3.4-5.0) Albumin/Globulin Ratio 0.5 (1.0-1.7) Test 05/23/19 06:16 05/23/19 06:40 Glucose (Fingerstick) 320 mg/dL (70-99) Hemoglobin 7.2 g/dL (13.0-17.5) Sodium Level 142 mmol/L (136-145) Potassium Level 5.1 mmol/L (3.5-5.1) Chloride Level 109 mmol/L (98-107) Carbon Dioxide Level 20 mmol/L (21-32) Anion Gap 13 (6-14) Blood Urea Nitrogen 56 mg/dL (8-26) Creatinine 2.4 mg/dL (0.7-1.3) Estimated GFR (Cockcroft-Gault) 26.7 Glucose Level 355 mg/dL (70-99) Calcium Level 8.4 mg/dL (8.5-10.1) Phosphorus Level 4.4 mg/dL (2.6-4.7) Magnesium Level 2.1 mg/dL (1.8-2.4) Laboratory Tests Test 05/22/19 10:40 05/22/19 11:01 05/22/19 18:23 05/22/19 19:05 Ammonia 14 mcmol/L (11-34) Glucose (Fingerstick) 162 mg/dL (70-99) 217 mg/dL (70-99) White Blood Count 11.0 x10^3/uL (4.0-11.0) Red Blood Count 2.62 x10^6/uL (4.30-5.70) Hemoglobin 8.1 g/dL (13.0-17.5) Hematocrit 24.8 % (39.0-53.0) Mean Corpuscular Volume 95 fL (79-100) Mean Corpuscular Hemoglobin 31 pg (25-35) Mean Corpuscular Hemoglobin Concent 33 g/dL (31-37) Red Cell Distribution Width 14.4 % (11.5-14.5) Platelet Count 424 x10^3/uL (140-400) Neutrophils (%) (Auto) 81 % (31-73) Lymphocytes (%) (Auto) 10 % (24-48) Monocytes (%) (Auto) 8 % (0-9) Eosinophils (%) (Auto) 1 % (0-3) Basophils (%) (Auto) 1 % (0-3) Neutrophils # (Auto) 8.9 x10^3/uL (1.8-7.7) Lymphocytes # (Auto) 1.1 x10^3/uL (1.0-4.8) Monocytes # (Auto) 0.9 x10^3/uL (0.0-1.1) Eosinophils # (Auto) 0.1 x10^3/uL (0.0-0.7) Basophils # (Auto) 0.1 x10^3/uL (0.0-0.2) Sodium Level 143 mmol/L (136-145) Potassium Level 4.9 mmol/L (3.5-5.1) Chloride Level 109 mmol/L (98-107) Carbon Dioxide Level 22 mmol/L (21-32) Anion Gap 12 (6-14) Blood Urea Nitrogen 41 mg/dL (8-26) Creatinine 1.7 mg/dL (0.7-1.3) Estimated GFR (Cockcroft-Gault) 39.7 BUN/Creatinine Ratio 24 (6-20) Glucose Level 234 mg/dL (70-99) Lactic Acid Level 1.4 mmol/L (0.4-2.0) Calcium Level 8.4 mg/dL (8.5-10.1) Total Bilirubin 0.4 mg/dL (0.2-1.0) Aspartate Amino Transf (AST/SGOT) 28 U/L (15-37) Alanine Aminotransferase (ALT/SGPT) 24 U/L (16-63) Alkaline Phosphatase 131 U/L (46-116) Total Protein 6.1 g/dL (6.4-8.2) Albumin 1.9 g/dL (3.4-5.0) Albumin/Globulin Ratio 0.5 (1.0-1.7) Test 05/22/19 21:05 05/23/19 00:24 05/23/19 06:16 05/23/19 06:40 Glucose (Fingerstick) 214 mg/dL (70-99) 301 mg/dL (70-99) 320 mg/dL (70-99) Hemoglobin 7.2 g/dL (13.0-17.5) Sodium Level 142 mmol/L (136-145) Potassium Level 5.1 mmol/L (3.5-5.1) Chloride Level 109 mmol/L (98-107) Carbon Dioxide Level 20 mmol/L (21-32) Anion Gap 13 (6-14) Blood Urea Nitrogen 56 mg/dL (8-26) Creatinine 2.4 mg/dL (0.7-1.3) Estimated GFR (Cockcroft-Gault) 26.7 Glucose Level 355 mg/dL (70-99) Calcium Level 8.4 mg/dL (8.5-10.1) Phosphorus Level 4.4 mg/dL (2.6-4.7) Magnesium Level 2.1 mg/dL (1.8-2.4) Problem List Problems Medical Problems: (1) Perforated intestine, nontraumatic Status: Acute Assessment/Plan continue drain, pressor support JAZMINE URIBE MD 05/23/19 5610: SURGICAL PROGRESS NOTE Assessment/Plan Patient seen and examined much less restless at this time resting more comfortably minimal pressor support making adequate urine. Fairly unresponsive. Still putting out a fair amount in his THANG drain bilious fluid other drain has minimal output NG tube with minimal output. Perforated duodenal ulcer adequately drained patient is very poor candidate for any further surgical intervention at this time continued supportive care maintain drains. Agree with Kriss assessment and plan FABI MASSEY APRN May 23, 2019 10:41 JAZMINE URIBE MD May 23, 2019 18:44
--- NOTE | 2019-05-23 11:29 | NUR ---
Patient is very fidgety and attempting to get out of bed several times. Attempting to reorient patient to place without success. Patient's respirations are fast ranging from 24 - 32 per minute. Oxygen 92% on room air. Lungs clear to auscultation. Patient briefly opens eyes when requested by nurse but doesn't make eye contact.
--- NOTE | 2019-05-23 12:53 | PDOC ---
[employer] PROGRESS NOTE Chief Complaint Chief Complaint Perforated Duodenal Ulcer, Severe Sepsis. History of Present Illness History of Present Illness The patient is a 73-year-old male with acute onset of right-sided mid abdominal pain, nausea, vomiting, started one hour prior to arrival. He had several episodes of vomiting since the onset. The patient was evaluated in the Emergency Room, underwent imaging studies revealing some free air in the abdomen. He subsequently underwent exploratory laparotomy by Dr. Hickman, revealing evidence of a perforated duodenal ulcer. He underwent diagnostic laparoscopy with open laparotomy and closure of a duodenal ulcer with a Dawood patch. 05/24: Patient was seen and examined in ICU, patient is asleep and non-arousable, Discussed with RN, who states that the patient was given pain medication last night for abdominal pain and is tender to palpation of the abdomen. Patient was noted to be shaking rapidly. Patient was running a low grade fever last night, however is not currently running a fever. Vitals/I&O Vitals/I&O: Vital Signs Date Time Temp Pulse Resp B/P (MAP) Pulse Ox O2 Delivery O2 Flow Rate FiO2 05/23/19 12:06 95 Room Air 05/23/19 11:00 97 30 97/46 (63) 05/23/19 08:00 3.0 05/23/19 07:00 99.2 99.2 I & O 05/22/19 05/22/19 05/23/19 15:00 23:00 07:00 Intake Total 0 ml 318 ml Output Total 1090 ml 835 ml 975 ml Balance -1090 ml -835 ml -657 ml Physical Exam Physical Exam: GENERAL: Laying in bed, NAD - HEENT: Pupils equally round. Oropharynx is clear. NGT NECK: Supple. LUNGS: Clear to auscultation. HEART: S1, S2 regular. ABDOMEN: Obese, soft, less distension. NT with hypoactive bowel sounds. Surgical dressings are dry and THANG drain intact- with continued bilious drainage. New THANG with serous fluid EXTREMITIES: No gross edema or cyanosis.. Right shoulder incision well-approx stable, clean. SKIN: Warm to touch. No signs of rash. NEUROLOGIC: sleepy, no focal deficit LUE - clean General: Other (confusion, restless, non-arousable, shaking ) Heart: Regular rate (SR), Other (distant heart sounds) Lungs: Crackles, Other Abdomen: Soft, Other (tender on exam, thang bilious) Extremities: No clubbing, No cyanosis, No edema, Normal pulses, No ten derness/swelling Skin: No rashes, No breakdown, No significant lesion, Other (abdominal surgical incision) Labs Labs: Laboratory Tests Test 05/22/19 18:23 05/22/19 19:05 05/22/19 21:05 05/23/19 00:24 Glucose (Fingerstick) 217 mg/dL (70-99) 214 mg/dL (70-99) 301 mg/dL (70-99) White Blood Count 11.0 x10^3/uL (4.0-11.0) Red Blood Count 2.62 x10^6/uL (4.30-5.70) Hemoglobin 8.1 g/dL (13.0-17.5) Hematocrit 24.8 % (39.0-53.0) Mean Corpuscular Volume 95 fL (79-100) Mean Corpuscular Hemoglobin 31 pg (25-35) Mean Corpuscular Hemoglobin Concent 33 g/dL (31-37) Red Cell Distribution Width 14.4 % (11.5-14.5) Platelet Count 424 x10^3/uL (140-400) Neutrophils (%) (Auto) 81 % (31-73) Lymphocytes (%) (Auto) 10 % (24-48) Monocytes (%) (Auto) 8 % (0-9) Eosinophils (%) (Auto) 1 % (0-3) Basophils (%) (Auto) 1 % (0-3) Neutrophils # (Auto) 8.9 x10^3/uL (1.8-7.7) Lymphocytes # (Auto) 1.1 x10^3/uL (1.0-4.8) Monocytes # (Auto) 0.9 x10^3/uL (0.0-1.1) Eosinophils # (Auto) 0.1 x10^3/uL (0.0-0.7) Basophils # (Auto) 0.1 x10^3/uL (0.0-0.2) Sodium Level 143 mmol/L (136-145) Potassium Level 4.9 mmol/L (3.5-5.1) Chloride Level 109 mmol/L (98-107) Carbon Dioxide Level 22 mmol/L (21-32) Anion Gap 12 (6-14) Blood Urea Nitrogen 41 mg/dL (8-26) Creatinine 1.7 mg/dL (0.7-1.3) Estimated GFR (Cockcroft-Gault) 39.7 BUN/Creatinine Ratio 24 (6-20) Glucose Level 234 mg/dL (70-99) Lactic Acid Level 1.4 mmol/L (0.4-2.0) Calcium Level 8.4 mg/dL (8.5-10.1) Total Bilirubin 0.4 mg/dL (0.2-1.0) Aspartate Amino Transf (AST/SGOT) 28 U/L (15-37) Alanine Aminotransferase (ALT/SGPT) 24 U/L (16-63) Alkaline Phosphatase 131 U/L (46-116) Total Protein 6.1 g/dL (6.4-8.2) Albumin 1.9 g/dL (3.4-5.0) Albumin/Globulin Ratio 0.5 (1.0-1.7) Test 05/23/19 06:16 05/23/19 06:40 Glucose (Fingerstick) 320 mg/dL (70-99) Hemoglobin 7.2 g/dL (13.0-17.5) Sodium Level 142 mmol/L (136-145) Potassium Level 5.1 mmol/L (3.5-5.1) Chloride Level 109 mmol/L (98-107) Carbon Dioxide Level 20 mmol/L (21-32) Anion Gap 13 (6-14) Blood Urea Nitrogen 56 mg/dL (8-26) Creatinine 2.4 mg/dL (0.7-1.3) Estimated GFR (Cockcroft-Gault) 26.7 Glucose Level 355 mg/dL (70-99) Calcium Level 8.4 mg/dL (8.5-10.1) Phosphorus Level 4.4 mg/dL (2.6-4.7) Magnesium Level 2.1 mg/dL (1.8-2.4) Review of Systems Review of Systems: Patient was asleep and non-arousable during interview. Assessment and Plan Assessmemt and Plan Problems Medical Problems: (1) Perforated intestine, nontraumatic Status: Acute Assessment: Perforated Duodenal ulcer, severe sepsis Plan: 1. ICU monitoring 2. Await further input from Infectious Disease consult. 3. Trend labs 4. DVT prophylaxis 5. Full code Comment Review of Relevant I have reviewed the following items adriano (where applicable) has been applied. Medications: Current Medications Medications (Trade) Dose Ordered Sig/Ventura Route PRN Reason Start Time Stop Time Status Last Admin Dose Admin Sodium Chloride 40 meq/Potassium Phosphate 13.6 mmol/Magnesium Sulfate 10 meq/ Calcium Gluconate 5 meq/ Multivitamins 10 ml/Chromium/ Copper/Manganese/ Seleni/Zn 1 ml/ Total Parenteral Nutrition/Amino Acids/Dextrose/ Fat Emulsion Intravenous 1,800 ml @ 75 mls/hr TPN CONT IV 05/22/19 22:00 05/23/19 21:59 05/22/19 21:40 Norepinephrine Bitartrate 250 ml @ 17.961 mls/ hr CONT PRN IV SEE I/O RECORD 05/22/19 19:00 05/23/19 08:51 Sodium Chloride 1,000 ml @ 1,000 mls/hr 1X ONCE IV 05/23/19 08:00 05/23/19 08:59 DC 05/23/19 08:11 Sodium Bicarbonate 75 meq/Sterile Water 575 ml @ 125 mls/hr [id number] ONCE IV 05/23/19 08:30 05/23/19 13:05 05/23/19 08:42 HEATHER WRIGHT III DO May 23, 2019 12:53
[2019-05-23] MEDS: TPN PER PHARMACY MC PRN (13:40)
--- NOTE | 2019-05-23 13:43 | NUR ---
Pharmacy TPN Dosing Note S: MORIAH BARRAGAN is a 73 year old M Currently receiving Central Continuous TPN started 05/15/19 B:Pertinent PMH: Perforated duodenal ulcer Height: 5 feet, 10 inches Weight: 95.479173 kg Current diet: NPO LABS: Sodium: 142 Potassium: 5.1 Chloride: 109 Calcium: 8.4 Corrected Calcium: 10.08 Magnesium: 2.1 CO2: 20 SCr: 2.4 Glucose: 301-355 Albumin: 1.9 AST: 28 ALT: 24 TPN FORMULA: TPN TYPE: Central Continuous AMINO ACIDS: 70 gm DEXTROSE: 225 gm LIPIDS: 30 gm SODIUM CHLORIDE: 40 mEq SODIUM ACETATE: 40 mEq SODIUM PHOSPHATE: mmol POTASSIUM CHLORIDE: - mEq POTASSIUM ACETATE: mEq POTASSIUM PHOSPHATE: 3.4 mmol MAGNESIUM: 10 mEq CALCIUM: 5 mEq INSULIN: 10 units MULTIPLE VITAMIN: 10 ml TRACE ELEMENTS: 1 ml(s) TPN PLAN: Dr. Samantha Toledo requested fluid volume increase from 1800 to 2400 ml as well as switch from NaCl to NaAc 40 meq; these changes were made. K and phos are both trending up due to pt's renal failure; decreased Kphos from 13.6 mmol to 3.4 mmol. All BG out of range since TPN restarted with with 23 units SSI given since bag hung. Will add 10 units insulin to bag. BMP, phos, mg in AM. R: Continue TPN ABOVE. Will monitor electrolytes, glucose, and tolerance to TPN. PETRA WITT [facility], 05/23/19 2814
--- NOTE | 2019-05-23 14:09 | NUR ---
EEG completed on patient. Patient tolerated well. Continues to fidget and pull at lines therefore mitts applied at this time after medical records custodian on alcantara catheter relieved.
--- NOTE | 2019-05-23 14:30 | NUR ---
Patient repositioned and placed foam ring with middle open under coccyx because patient c/o butt being sore and scooting around in bed while on side. Patient appears much more comfortable with foam cushion under bottom; tilted to left side as well.
--- NOTE | 2019-05-23 14:42 | PDOC ---
PROGRESS NOTES Assessment Assessment Abnormal jerking like movements. Metabolic encephalopathy. ET. Agitation. Delirium. Bowel perforation s/p surgery. Fever. Hyperglycemia. DM. Renal failure. Anemia. HTN. HLD. COPD. Obesity. RECOMMENDATIONS/PLAN: Discontinue Vimpat. Keppra 250 mg bid. Continue Statin. Treat medical and surgical diseases. Unable to perform MRI on him due to agitation and delirium. Try MRI again when stable. EEG. Discussed with his at bedside in ICU on 05/23/19. HCT: No acute findings. EEG pending. History of Present Illness This is a 73-year-old white male patient was came to the ER of [facility] on 05/08/19 with complaints of severe abdominal pain, nausea, vomiting. He had a right shoulder surgery 2 days prior and has been on nonsteroidal anti-inflammatories for quite some time. Abdomen CT scan shows free air in the right upper quadrant with some perihepatic ascites. Neurology was request for a consultation on 05/18/19 due to abnormal movements, mental status changes, and confusion. 05/21/19: His mentation slightly improved and able to open eyes per commands. He had hypotension and respiratory distress/failure event and was transferred to ICU. Past Medical History Cardiovascular: HTN Pulmonary: No pertinent hx GI: Gastritis, Peptic Ulcer disease Heme/Onc: No pertinent hx Hepatobiliary: No pertinent hx Psych: No pertinent hx Musculoskeletal: Other (shoulder pain) Rheumatologic: No pertinent hx Infectious disease: No pertinent hx ENT: No pertinent hx Renal/: Chronic renal insuff Endocrine: Diabetes Dermatology: No pertinent hx Past Surgical History Right shoulder surgery postop 2 days to this admission. Family History No Significant Social History ALCOHOL: rare Drugs: None Lives: with Family Allergies Coded Allergies: sulfamethoxazole (Verified Allergy, Severe, Altered Mental Status , 05/08/19) trimethoprim (Verified Allergy, Severe, Altered Mental Status , 05/08/19) Sulfa (Sulfonamide Antibiotics) (Verified Allergy, Intermediate, 02/18/19) ciprofloxacin (Verified Allergy, Unknown, rash, 05/08/19) codeine (Verified Allergy, Unknown, Rash, 05/08/19) MEDICATIONS: Refer to MAR REVIEW OF SYSTEMS: Constitutional: Obesity. Head: No traumatic brain or head injury. Skin: No edema, or rash. Ear: No infection. Eyes: No vision loss or color blindness. Nose: No bleeding or purulent discharges. Hearing: Hearing decrease. Neck: No injury. Cardiac: HTN, HLD. Pulmonary: COPD. GI: Abdomen pain. Urinary/genital: UTI. Endocrinologic: Diabetes Mellitus, obesity. Skeletomuscular: Tremors. Neurological: see HP. Psychiatric: Denies drug use/abuse. Otherwise, not [id number] review of systems. PHYSICAL EXAMINATION: General appearance is in subacute distress. HEENT: Normocephalic and nontraumatic. Eyes, nose, ears, and throat are unremarkable. Neck is supple. No lymphadenopathy. No crepitus. Cardiovascular: S1, S2. Pulmonary: decreased to auscultation bilaterally. Abdomen: Bowel sounds are positive? Extremities: No rash, lesions, or edema. No restriction of range of motion NEUROLOGICAL EXAMINATION: Drowsiness. Abnormal movements obviously controlled. Not oriented to time, place but knew person. PERRL. EOMI. CN: no focal findings. Muscle tone: Fluctuated. Muscle strength: 4-. DTR: 1+ Plantar reflex: Neutral response bilaterally Gait: not able to walk. Sensory exam: No acute abnormal findings. No other cerebellar signs elicited. F-T-N test not performed due to not follow commands. Objective Objective Vital Signs Date Time Temp Pulse Resp B/P (MAP) Pulse Ox O2 Delivery O2 Flow Rate FiO2 05/23/19 12:06 95 Room Air 05/23/19 11:00 97 30 97/46 (63) 05/23/19 08:00 3.0 05/23/19 07:00 99.2 99.2 Intake and Output 05/23/19 07:00 Intake Total 318 ml Output Total 2900 ml Balance -2582 ml Intake Oral 0 ml IV Total 318 ml Output Urine Total 1415 ml Drainage Total 1485 ml Vitals Signs Vitals VS - Last 72 Hours, by Label Date Time Temp Pulse Resp B/P (MAP) Pulse Ox O2 Delivery O2 Flow Rate FiO2 05/23/19 12:06 95 Room Air 05/23/19 12:00 Room Air 05/23/19 11:00 97 30 97/46 (63) 94 Room Air 05/23/19 10:00 94 28 85/56 (66) 94 Room Air 05/23/19 09:00 91 24 101/45 (63) 94 Room Air 05/23/19 08:21 92 Room Air 05/23/19 08:00 99 26 101/57 (72) 92 Nasal Cannula 3.0 05/23/19 08:00 Room Air 05/23/19 07:00 99.2 92 26 96/54 (68) 98 Nasal Cannula 3.0 99.2 05/23/19 06:02 94 24 119/64 (82) 95 Nasal Cannula 3.0 05/23/19 05:02 97 25 113/60 (77) 94 Nasal Cannula 3.0 05/23/19 04:03 92 22 105/49 (67) 96 Nasal Cannula 3.0 05/23/19 04:00 Room Air 05/23/19 03:16 89 24 90/54 (66) 96 Nasal Cannula 3.0 05/23/19 03:02 97 26 106/64 (78) 97 Nasal Cannula 3.0 05/23/19 02:48 101 32 94/60 (71) 96 Nasal Cannula 3.0 05/23/19 02:31 99.0 102 29 85/69 (74) 96 Nasal Cannula 3.0 99.0 05/23/19 02:02 106 29 137/69 (91) 96 Nasal Cannula 3.0 05/23/19 01:45 92 27 104/62 (76) 97 Nasal Cannula 3.0 05/23/19 01:30 98 25 98/66 (77) 97 Nasal Cannula 3.0 05/23/19 01:16 99 28 111/64 (80) 96 Nasal Cannula 3.0 05/23/19 01:01 100 25 98/53 (68) 97 Nasal Cannula 3.0 05/23/19 00:45 95 26 92/57 (69) 96 Nasal Cannula 3.0 05/23/19 00:32 98 23 105/59 (74) 96 Nasal Cannula 3.0 05/23/19 00:15 99 23 112/57 (75) 96 Nasal Cannula 3.0 05/23/19 00:00 99 26 96/59 (71) 97 Nasal Cannula 3.0 05/22/19 23:59 Room Air 05/22/19 23:46 96 23 110/65 (80) 97 Nasal Cannula 3.0 05/22/19 23:30 94 23 116/64 (81) 97 Nasal Cannula 3.0 05/22/19 23:15 100 23 96/63 (74) 97 Nasal Cannula 3.0 05/22/19 23:04 102 23 127/60 (82) 96 Nasal Cannula 3.0 05/22/19 23:00 108 28 175/63 (100) 97 Nasal Cannula 3.0 05/22/19 22:45 91 23 107/54 (71) 97 Nasal Cannula 3.0 05/22/19 22:31 93 20 81/47 (58) 98 Nasal Cannula 3.0 05/22/19 22:29 11 96 Room Air 3.0 05/22/19 22:15 96 21 75/52 (60) 96 Nasal Cannula 3.0 05/22/19 22:00 95 20 78/50 (59) 96 Nasal Cannula 3.0 05/22/19 21:46 101 25 73/45 (54) 96 Nasal Cannula 3.0 05/22/19 21:34 108 30 93/55 (68) 96 Nasal Cannula 3.0 05/22/19 21:33 30 97 Nasal Cannula 3.0 05/22/19 21:15 118 36 97/62 (74) 90 Nasal Cannula 3.0 05/22/19 21:00 114 34 121/56 (77) 96 Nasal Cannula 3.0 05/22/19 20:46 119 29 112/62 (79) 96 Nasal Cannula 3.0 05/22/19 20:30 99.1 115 36 110/80 (90) 98 Nasal Cannula 3.0 99.1 05/22/19 20:15 97.4 110 37 98/61 (73) 97 Nasal Cannula 3.0 97.4 05/22/19 20:00 98.8 112 28 96/61 (73) 96 Nasal Cannula 3.0 98.8 05/22/19 20:00 Room Air 05/22/19 19:45 98 Nasal Cannula 3.0 05/22/19 19:29 98.4 94 23 101/49 (66) 98 Nasal Cannula 3.0 98.4 05/22/19 19:00 97.6 89 24 93/51 (65) 93 Nasal Cannula 3.0 97.6 05/22/19 16:00 Room Air 05/22/19 15:00 99.6 92 20 116/67 (83) 94 Room Air 99.6 05/22/19 11:03 95 Room Air 05/22/19 11:00 98.6 87 18 101/58 (72) 96 Room Air 98.6 05/22/19 08:00 Room Air 05/22/19 07:07 95 Room Air 05/22/19 07:00 98.9 86 18 153/57 (89) 94 Room Air 98.9 Laboratory Laboratory Laboratory Tests Test 05/22/19 18:23 05/22/19 19:05 05/22/19 21:05 05/23/19 00:24 Glucose (Fingerstick) 217 mg/dL (70-99) 214 mg/dL (70-99) 301 mg/dL (70-99) White Blood Count 11.0 x10^3/uL (4.0-11.0) Red Blood Count 2.62 x10^6/uL (4.30-5.70) Hemoglobin 8.1 g/dL (13.0-17.5) Hematocrit 24.8 % (39.0-53.0) Mean Corpuscular Volume 95 fL (79-100) Mean Corpuscular Hemoglobin 31 pg (25-35) Mean Corpuscular Hemoglobin Concent 33 g/dL (31-37) Red Cell Distribution Width 14.4 % (11.5-14.5) Platelet Count 424 x10^3/uL (140-400) Neutrophils (%) (Auto) 81 % (31-73) Lymphocytes (%) (Auto) 10 % (24-48) Monocytes (%) (Auto) 8 % (0-9) Eosinophils (%) (Auto) 1 % (0-3) Basophils (%) (Auto) 1 % (0-3) Neutrophils # (Auto) 8.9 x10^3/uL (1.8-7.7) Lymphocytes # (Auto) 1.1 x10^3/uL (1.0-4.8) Monocytes # (Auto) 0.9 x10^3/uL (0.0-1.1) Eosinophils # (Auto) 0.1 x10^3/uL (0.0-0.7) Basophils # (Auto) 0.1 x10^3/uL (0.0-0.2) Sodium Level 143 mmol/L (136-145) Potassium Level 4.9 mmol/L (3.5-5.1) Chloride Level 109 mmol/L (98-107) Carbon Dioxide Level 22 mmol/L (21-32) Anion Gap 12 (6-14) Blood Urea Nitrogen 41 mg/dL (8-26) Creatinine 1.7 mg/dL (0.7-1.3) Estimated GFR (Cockcroft-Gault) 39.7 BUN/Creatinine Ratio 24 (6-20) Glucose Level 234 mg/dL (70-99) Lactic Acid Level 1.4 mmol/L (0.4-2.0) Calcium Level 8.4 mg/dL (8.5-10.1) Total Bilirubin 0.4 mg/dL (0.2-1.0) Aspartate Amino Transf (AST/SGOT) 28 U/L (15-37) Alanine Aminotransferase (ALT/SGPT) 24 U/L (16-63) Alkaline Phosphatase 131 U/L (46-116) Total Protein 6.1 g/dL (6.4-8.2) Albumin 1.9 g/dL (3.4-5.0) Albumin/Globulin Ratio 0.5 (1.0-1.7) Test 05/23/19 06:16 05/23/19 06:40 05/23/19 12:36 Glucose (Fingerstick) 320 mg/dL (70-99) 320 mg/dL (70-99) Hemoglobin 7.2 g/dL (13.0-17.5) Sodium Level 142 mmol/L (136-145) Potassium Level 5.1 mmol/L (3.5-5.1) Chloride Level 109 mmol/L (98-107) Carbon Dioxide Level 20 mmol/L (21-32) Anion Gap 13 (6-14) Blood Urea Nitrogen 56 mg/dL (8-26) Creatinine 2.4 mg/dL (0.7-1.3) Estimated GFR (Cockcroft-Gault) 26.7 Glucose Level 355 mg/dL (70-99) Calcium Level 8.4 mg/dL (8.5-10.1) Phosphorus Level 4.4 mg/dL (2.6-4.7) Magnesium Level 2.1 mg/dL (1.8-2.4) Microbiology 05/15/19 AFB Specimen Processing Tissue - Final, Resulted 05/15/19 Acid Fast Bacilli Culture, Resulted Pending 05/15/19 Gram Stain - Final, Resulted 05/15/19 Fungal Culture, Resulted Pending 05/15/19 Fungal Culture Result 1, Resulted Pending Medication Medications Current Medications Norepinephrine Bitartrate 250 ml @ 17.961 mls/ hr CONT PRN IV SEE I/O RECORD Last administered on 05/23/19at 08:51; Start 05/22/19 at 19:00 Sodium Bicarbonate 75 meq/Sterile Water 575 ml @ 125 mls/hr [id number] ONCE IV Last administered on 05/23/19at 08:42; Start 05/23/19 at 08:30; Stop 05/23/19 at 13:05; Status DC Sodium Acetate 40 meq/Potassium Phosphate 3.4 mmol/Magnesium Sulfate 10 meq/ Calcium Gluconate 5 meq/ Multivitamins 10 ml/Chromium/ Copper/Manganese/ Seleni/Zn 1 ml/ Insulin Human Regular 10 unit/ Total Parenteral Nutrition/Amino Acids/Dextrose/ Fat Emulsion Intravenous 2,400 ml @ 100 mls/hr TPN CONT IV ; Start 05/23/19 at 22:00; Stop 05/24/19 at 21:59 Sodium Chloride 1,000 ml @ 1,000 mls/hr 1X ONCE IV Last administered on 05/23/19at 08:11; Start 05/23/19 at 08:00; Stop 05/23/19 at 08:59; Status DC Sodium Chloride 40 meq/Potassium Phosphate 13.6 mmol/Magnesium Sulfate 10 meq/ Calcium Gluconate 5 meq/ Multivitamins 10 ml/Chromium/ Copper/Manganese/ Seleni/Zn 1 ml/ Total Parenteral Nutrition/Amino Acids/Dextrose/ Fat Emulsion Intravenous 1,800 ml @ 75 mls/hr TPN CONT IV Last administered on 05/22/19at 21:40; Start 05/22/19 at 22:00; Stop 05/23/19 at 21:59 Comment Review of Relevant I have reviewed the following items adriano (where applicable) has been applied. PATRICE LOVE MD May 23, 2019 14:42
[2019-05-23] MEDS: levETIRAcetam 250 MG in IV DEXTROSE 5% 100ML 100 ML IV SCH ×2 (15:05→21:03)
--- NOTE | 2019-05-23 15:27 | NUR ---
Patient kicking feet off bed, attempting to get out of bed to go to the bathroom. Reminded patient that he has a alcantara catheter in his bladder. Pt mumbles, "no, damn it I need to go to the bathroom." Patient continues to be fidgeting and attempting to grab at lines.
--- NOTE | 2019-05-23 16:01 | EEG ---
DATE OF SERVICE: 05/23/2019 EEG NUMBER: [id number]. OBJECTIVE: This is a 73-year-old male patient with prolonged mental status changes and abnormal movements. EEG was requested to evaluate cerebral activity and help rule out seizures. METHODS: Twenty electrodes were applied according to the international 10-20 electrode placement system. EKG monitoring, hyperventilation, intermittent photic stimulation, monopolar and bipolar montages are routinely utilized. The record was obtained on a digital system with video monitoring. FINDINGS: 1. Background: The patient was recorded in the lethargic state. The overall background amplitude is variable. No posterior dominant rhythm is observed. The overall background rhythm is with diffuse slowing in the theta and delta frequencies throughout the entire recording. 2. Abnormalities: No specific epileptiform discharge or electrographic seizure is seen. Diffuse slowing in the theta and delta frequencies throughout the entire recording. 3. Activation: Hyperventilation was not performed because the patient was unable to follow the commands. Intermittent photic stimulation was performed with photic driving. IMPRESSION: This EEG is an abnormal study for the lethargic state. No posterior dominant rhythm is observed. Overall background rhythm is with diffuse slowing in the theta and delta frequencies throughout the entire recording. No focal, lateralizing, specific epileptiform discharge, or electrographic seizure is seen. This pattern of EEG is suggestive of diffuse encephalopathy. PATRICE LOVE MD DR: [email or web address]/kaye JOB#: [id number] / [id number]
--- NOTE | 2019-05-23 16:11 | NUR ---
MRI on hold until patient is more stable. Blood pressure still not stable and requiring small dose of levophed at this time.
[2019-05-23] MEDS: SIMVASTATIN 10 MG TABLET PO SCH (21:01)
[2019-05-23] MEDS: INSULIN GLARGINE SYRINGE. SQ SCH (21:18)
[2019-05-23] MEDS ORDERED: [UNRECOGNIZED DRUG - OTHER] IV SCH ×10 (22:00)
[2019-05-23] MEDS ORDERED: AMINO ACID IV SCH ×10 (22:00)
[2019-05-23] MEDS ORDERED: TOTAL PARENTERAL NUTRITION IV SCH ×10 (22:00)
[2019-05-23] MEDS ORDERED: DEXTROSE 70% IV SCH ×10 (22:00)
--- NOTE | 2019-05-23 23:05 | NUR ---
Pt remains confused and agitated, though still with eyes closed and not responding appropriately to commands or speech. Tremors noted. MACKENZIE to abdomen has drained 180 ml of thick brown drainage in last 4 hours. Will continue to monitor closely.
[2019-05-24] VITALS (24 sets, daily range): BP systolic 92–162; BP diastolic 45–77
[2019-05-24] MEDS: INSULIN LISPRO 300 UNITS/3 ML VIAL. SQ SCH ×4 (00:10→17:33)
[2019-05-24 06:15] LABS: CALCIUM 8.4 mg/dL (8.5-10.1); CREATININE 2.5 mg/dL (0.7-1.3); GFR 25.4; MAGNESIUM 2.1 mg/dL (1.8-2.4); POTASSIUM 4.4 mmol/L (3.5-5.1)
[2019-05-24] MEDS: IPRATRPIUM/ALBUTEROL 0.5/2.5MG 3 ML NEBU. NEB SCH ×4 (08:20→19:55)
[2019-05-24] MEDS: BUDESONIDE 0.5 MG/2 ML NEBU. NEB SCH ×2 (08:20→19:56)
--- NOTE | 2019-05-24 08:29 | NUR ---
Patient's states patient is much more alert than yesterday. Patient is able to open eyes, state his , knew his 's name, knew he was in the hospital-- all assessed w/ at bedside. Remains drowsy, slightly confused and forgetful. Notified Serenity RENDON of MACKENZIE output. No new orders received. O/U adequate. VS stable-- Levophed gtt off. Patient is able to state that he has "no pain" and "wants to go home". See VS, I/O, Assessments.
--- NOTE | 2019-05-24 08:43 | PDOC ---
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 05/24/19 0843: SURGICAL PROGRESS NOTE Subjective more oriented today, knew who his was no complaints of pain Vital Signs Vital Signs Date Time Temp Pulse Resp B/P (MAP) Pulse Ox O2 Delivery O2 Flow Rate FiO2 05/24/19 08:21 96 Room Air 05/24/19 08:00 99.6 89 27 139/60 (86) 99.6 05/24/19 04:00 3.0 I&O Intake and Output 05/24/19 07:00 Intake Total 3290.5 ml Output Total 2440 ml Balance 850.5 ml IV Total 1988.5 ml Other 1302 ml Output Urine Total 1325 ml Drainage Total 1115 ml PATIENT HAS A FENTON: Yes General: Cooperative, No acute distress HEENT: Other (ng in place) Abdomen: Soft, Other (thang bilious ) Labs Laboratory Tests Test 05/22/19 10:40 05/22/19 11:01 05/22/19 18:23 05/22/19 19:05 Ammonia 14 mcmol/L (11-34) Glucose (Fingerstick) 162 mg/dL (70-99) 217 mg/dL (70-99) White Blood Count 11.0 x10^3/uL (4.0-11.0) Red Blood Count 2.62 x10^6/uL (4.30-5.70) Hemoglobin 8.1 g/dL (13.0-17.5) Hematocrit 24.8 % (39.0-53.0) Mean Corpuscular Volume 95 fL (79-100) Mean Corpuscular Hemoglobin 31 pg (25-35) Mean Corpuscular Hemoglobin Concent 33 g/dL (31-37) Red Cell Distribution Width 14.4 % (11.5-14.5) Platelet Count 424 x10^3/uL (140-400) Neutrophils (%) (Auto) 81 % (31-73) Lymphocytes (%) (Auto) 10 % (24-48) Monocytes (%) (Auto) 8 % (0-9) Eosinophils (%) (Auto) 1 % (0-3) Basophils (%) (Auto) 1 % (0-3) Neutrophils # (Auto) 8.9 x10^3/uL (1.8-7.7) Lymphocytes # (Auto) 1.1 x10^3/uL (1.0-4.8) Monocytes # (Auto) 0.9 x10^3/uL (0.0-1.1) Eosinophils # (Auto) 0.1 x10^3/uL (0.0-0.7) Basophils # (Auto) 0.1 x10^3/uL (0.0-0.2) Sodium Level 143 mmol/L (136-145) Potassium Level 4.9 mmol/L (3.5-5.1) Chloride Level 109 mmol/L (98-107) Carbon Dioxide Level 22 mmol/L (21-32) Anion Gap 12 (6-14) Blood Urea Nitrogen 41 mg/dL (8-26) Creatinine 1.7 mg/dL (0.7-1.3) Estimated GFR (Cockcroft-Gault) 39.7 BUN/Creatinine Ratio 24 (6-20) Glucose Level 234 mg/dL (70-99) Lactic Acid Level 1.4 mmol/L (0.4-2.0) Calcium Level 8.4 mg/dL (8.5-10.1) Total Bilirubin 0.4 mg/dL (0.2-1.0) Aspartate Amino Transf (AST/SGOT) 28 U/L (15-37) Alanine Aminotransferase (ALT/SGPT) 24 U/L (16-63) Alkaline Phosphatase 131 U/L (46-116) Total Protein 6.1 g/dL (6.4-8.2) Albumin 1.9 g/dL (3.4-5.0) Albumin/Globulin Ratio 0.5 (1.0-1.7) Test 05/22/19 21:05 05/23/19 00:24 05/23/19 06:16 05/23/19 06:40 Glucose (Fingerstick) 214 mg/dL (70-99) 301 mg/dL (70-99) 320 mg/dL (70-99) Hemoglobin 7.2 g/dL (13.0-17.5) Sodium Level 142 mmol/L (136-145) Potassium Level 5.1 mmol/L (3.5-5.1) Chloride Level 109 mmol/L (98-107) Carbon Dioxide Level 20 mmol/L (21-32) Anion Gap 13 (6-14) Blood Urea Nitrogen 56 mg/dL (8-26) Creatinine 2.4 mg/dL (0.7-1.3) Estimated GFR (Cockcroft-Gault) 26.7 Glucose Level 355 mg/dL (70-99) Calcium Level 8.4 mg/dL (8.5-10.1) Phosphorus Level 4.4 mg/dL (2.6-4.7) Magnesium Level 2.1 mg/dL (1.8-2.4) Test 05/23/19 12:36 05/23/19 17:45 05/24/19 00:06 05/24/19 06:00 Glucose (Fingerstick) 320 mg/dL (70-99) 278 mg/dL (70-99) 294 mg/dL (70-99) Sodium Level 142 mmol/L (136-145) Potassium Level 4.4 mmol/L (3.5-5.1) Chloride Level 108 mmol/L (98-107) Carbon Dioxide Level 22 mmol/L (21-32) Anion Gap 12 (6-14) Blood Urea Nitrogen 63 mg/dL (8-26) Creatinine 2.5 mg/dL (0.7-1.3) Estimated GFR (Cockcroft-Gault) 25.4 Glucose Level 273 mg/dL (70-99) Calcium Level 8.4 mg/dL (8.5-10.1) Phosphorus Level 4.0 mg/dL (2.6-4.7) Magnesium Level 2.1 mg/dL (1.8-2.4) Test 05/24/19 06:07 Glucose (Fingerstick) 256 mg/dL (70-99) Laboratory Tests Test 05/23/19 12:36 05/23/19 17:45 05/24/19 00:06 05/24/19 06:00 Glucose (Fingerstick) 320 mg/dL (70-99) 278 mg/dL (70-99) 294 mg/dL (70-99) Sodium Level 142 mmol/L (136-145) Potassium Level 4.4 mmol/L (3.5-5.1) Chloride Level 108 mmol/L (98-107) Carbon Dioxide Level 22 mmol/L (21-32) Anion Gap 12 (6-14) Blood Urea Nitrogen 63 mg/dL (8-26) Creatinine 2.5 mg/dL (0.7-1.3) Estimated GFR (Cockcroft-Gault) 25.4 Glucose Level 273 mg/dL (70-99) Calcium Level 8.4 mg/dL (8.5-10.1) Phosphorus Level 4.0 mg/dL (2.6-4.7) Magnesium Level 2.1 mg/dL (1.8-2.4) Test 05/24/19 06:07 Glucose (Fingerstick) 256 mg/dL (70-99) Problem List Problems Medical Problems: (1) Perforated intestine, nontraumatic Status: Acute Assessment/Plan off pressors more oriented today continue drains JAZMINE URIBE MD 05/24/19 1826: SURGICAL PROGRESS NOTE Assessment/Plan Patient resting comfortably in bed today still somewhat confused. THANG drain has decreased bilious output vital signs have stabilized no longer on pressor. Agree with Candace assessment and plan we'll continue conservative management and supportive care. FABI MASSEY APRN May 24, 2019 08:43 JAZMINE URIBE MD May 24, 2019 18:26
[2019-05-24] MEDS: VENLAFAXINE XR 37.5 MG CAP.ER.24H. PO SCH (09:00)
[2019-05-24] MEDS: PRIMIDONE 50 MG TABLET PO SCH ×2 (09:00→21:00)
[2019-05-24] MEDS: BACITRACIN TOPICAL OINT PACKET. TP SCH (09:38)
[2019-05-24] MEDS: PANTOPRAZOLE IV PUSH 40 MG VIAL. IVP SCH (09:39)
[2019-05-24] MEDS: HEPARIN for SUB-Q USE 5,000 UNIT/ML VIAL. SQ SCH ×2 (09:39→21:04)
[2019-05-24] MEDS: levETIRAcetam 250 MG in IV DEXTROSE 5% 100ML 100 ML IV SCH ×2 (09:40→21:03)
[2019-05-24] MEDS ORDERED: IV RINGERS,LACTATED 1000ML 1,000 ML IV SCH (09:45)
--- NOTE | 2019-05-24 09:50 | PDOC ---
SUBJECTIVE ROS Follow-up for acute kidney injury Patient remains somewhat encephalopathic. NG tube in place. Remains on TPN. Urine output is acceptable OBJECTIVE Vital Signs Vital Signs Date Time Temp Pulse Resp B/P (MAP) Pulse Ox O2 Delivery O2 Flow Rate FiO2 05/24/19 09:00 91 28 101/50 (67) 95 Room Air 05/24/19 08:00 99.6 99.6 05/24/19 04:00 3.0 I & 0 Intake and Output 05/24/19 07:00 Intake Total 3290.5 ml Output Total 2440 ml Balance 850.5 ml IV Total 1988.5 ml Other 1302 ml Output Urine Total 1325 ml Drainage Total 1115 ml PHYSICAL EXAM Physical Exam GEN: Remains sedated again today. Appears calm overall. In no visible distress, EYES: Sclera is anicteric Conjunctiva Normal EN: No EN Drainage, Mucous Membranes dry NG tube in place NECK: no JVD, no JVP, Supple, no Thyromegaly CVS: S1S2, possible Murmur, No Gallop, No Rub,no Edema RESP: no Rales, no Rhonchi,no Acc. Muscle Use GI: BS rare, NO Bruit, Min Tender, Non Distended : no CVA tenderness, no Suprapubic Tenderness, Patrick catheter in place now DIAGNOSIS/ASSESSMENT Assessment & Plan ARF: Creatinine is worse today. Recheck UA, urine sodium. 1 L LR will be administered besides increased TPN volume. Outpatient baseline is not available. Continues to have low-grade fevers Marginal oliguria: Much improved after fluid bolus and yesterday Chronic kidney disease stage III underlying with baseline creatinine of 1.5 given other foci of atherosclerotic vascular disease cannot be ruled out. Severe hypoalbuminemia: Presumably associated with recent perforation of viscus and surgery. Continue parental nutrition for now. Transition to tube feeds/enteral feeding if and when approved by general surgery. TPN changes discussed with PharmD ANEMIA; may need blood transfusion hemoglobin drops below 7. IV iron will not be ordered for now due to ongoing low-grade fevers. will start epo Right renal calculus: Will require outpatient urology evaluation. No current urology coverage available at this hospital. Await UA. Another CT scan for his intra-abdominal pathology is contemplated in the near future hence imaging studies for this have not been reordered TPN - increased free water. Will need better fingerstick sugar control added insulin to TPN. Discussed Plan of Care with ACETYLENE BURNER at bedside COMMENT/RELEVANT DATA Meds Current Medications Medications (Trade) Dose Ordered Sig/Ventura Start Time Stop Time Status Last Admin Dose Admin Acetaminophen (Tylenol) 500 mg PRN Q6HRS PRN 05/13/19 08:30 Albumin Human 500 ml @ 250 mls/hr 1X ONCE 05/09/19 00:30 05/09/19 02:29 DC 05/09/19 00:10 250 MLS/HR Albuterol/ Ipratropium (Duoneb) 3 ml RTQID 05/10/19 08:00 05/24/19 08:20 3 ML Amino Acids/ Glycerin/ Electrolytes 1,000 ml @ 80 mls/hr [id number] 05/19/19 13:00 05/22/19 21:59 DC 05/22/19 06:13 80 MLS/HR Bacitracin (Bacitracin Zinc Oint Pkt) 1 pkt DAILY 05/18/19 10:15 05/19/19 08:19 1 PKT Bisacodyl (Dulcolax Supp) 10 mg PRN DAILY PRN 05/21/19 15:45 05/21/19 16:34 10 MG Budesonide (Pulmicort) 0.5 mg RTBID 05/10/19 08:00 05/24/19 08:20 0.5 MG Bupivacaine HCl (Sensorcaine Mpf 0.5%) 30 ml STK-MED ONCE 05/08/19 21:39 05/08/19 21:39 DC Bupivacaine HCl/ Epinephrine Bitart (Sensorcaine-Epi 0.25%-1:[id number] Mpf) 30 ml 1X ONCE 05/08/19 20:00 05/08/19 20:01 DC 05/08/19 20:32 26 ML Carbidopa/Levodopa (Sinemet 25/100) 1 tab TID 05/12/19 14:00 05/12/19 13:40 DC Cefepime HCl (Maxipime) 2 gm Q8HRS 05/14/19 12:00 05/18/19 08:18 DC 05/18/19 06:25 2 GM Clonidine HCl (Catapres) 0.1 mg PRN Q1HR PRN 05/13/19 08:30 Daptomycin 570 mg/ Sodium Chloride 50 ml @ 100 mls/hr Q24H 05/14/19 11:30 05/20/19 08:07 DC 05/19/19 13:21 100 MLS/HR Dexamethasone Sodium Phosphate (Decadron) 4 mg STK-MED ONCE 05/08/19 19:34 05/08/19 19:34 DC Dextrose (Dextrose 50%-Water Syringe) 12.5 gm PRN Q15MIN PRN 05/16/19 13:15 Dextrose/Sodium Chloride 1,000 ml @ 150 mls/hr Q6H40M 05/09/19 08:45 05/09/19 18:30 DC 05/09/19 12:28 150 MLS/HR Diphenhydramine HCl (Benadryl) 25 mg 1X ONCE 05/08/19 17:00 05/08/19 17:01 DC 05/08/19 16:51 25 MG Dobutamine HCl/ Dextrose 250 ml @ 15.75 mls/ hr CONT PRN 05/09/19 12:45 05/12/19 13:06 DC Ephedrine Sulfate (ePHEDrine PF IN SALINE SYRINGE) 50 mg STK-MED ONCE 05/08/19 20:36 05/08/19 20:36 DC Epinephrine HCl (Adrenalin) 1 mg STK-MED ONCE 05/08/19 21:39 05/08/19 21:39 DC Fentanyl Citrate (Fentanyl 2ml Vial) 50 mcg 1X ONCE 05/15/19 14:30 05/15/19 14:38 DC 05/15/19 14:30 50 MCG Fluconazole/ Sodium Chloride 100 ml @ 100 mls/hr Q24H 05/08/19 22:00 05/14/19 10:28 DC 05/13/19 21:14 100 MLS/HR Flumazenil (Romazicon) 0.5 mg STK-MED ONCE 05/15/19 13:47 05/15/19 13:47 DC Gabapentin (Neurontin) 300 mg PRN QHS PRN 05/12/19 17:45 05/12/19 20:53 300 MG Glycopyrrolate (Robinul) 1 mg STK-MED ONCE 05/08/19 21:27 05/08/19 21:27 DC Haloperidol Lactate (Haldol Inj) 2.5 mg PRN Q6HRS PRN 05/19/19 08:00 05/20/19 23:24 2.5 MG Heparin Sodium (Porcine) (Heparin Sodium) 5,000 unit BID 05/11/19 10:00 05/23/19 21:02 5,000 UNIT Hydralazine HCl (Apresoline Inj) 10 mg PRN Q4HRS PRN 05/11/19 11:45 Hydromorphone HCl (Dilaudid) 0.5 mg PRN Q2HR PRN 05/19/19 08:00 05/22/19 21:33 0.5 MG Info (CONTRAST GIVEN -- Rx MONITORING) 1 each PRN DAILY PRN 05/14/19 09:00 05/16/19 08:59 DC Info (Tpn Per Pharmacy) 1 each PRN DAILY PRN 05/22/19 09:30 05/23/19 13:40 1 EACH Insulin Glargine (Lantus Syringe) 10 unit ONCE STAT 05/18/19 07:47 05/18/19 07:51 DC 05/18/19 07:47 10 UNIT Insulin Human Lispro (HumaLOG VIAL for OP,RR ONLY) 0-10 units PRN Q1HR PRN 05/08/19 19:45 05/08/19 23:59 DC Insulin Human Lispro (HumaLOG) 0-9 UNITS Q6HRS 05/16/19 18:00 05/24/19 06:09 7 UNITS Insulin Human Regular (HumuLIN R VIAL) 8 unit 1X ONCE 05/16/19 13:15 05/16/19 13:22 DC 05/16/19 13:36 8 UNIT Insulin Human Regular 150 unit/ Sodium Chloride 151.5 ml @ 0 mls/hr CONT PRN 05/08/19 23:00 05/12/19 13:06 DC 05/08/19 23:03 5 MLS/HR Iohexol (Omnipaque 240 Mg/ml) 30 ml 1X ONCE 05/14/19 08:45 05/14/19 08:48 DC 05/14/19 08:45 30 ML Iohexol (Omnipaque 300 Mg/ml) 60 ml 1X ONCE 05/14/19 08:45 05/14/19 08:48 DC 05/14/19 08:45 60 ML Iohexol (Omnipaque 350 Mg/ml) 90 ml 1X ONCE 05/08/19 17:30 05/08/19 17:31 DC 05/08/19 17:45 90 ML Ketamine HCl (Ketamine) 50 mg STK-MED ONCE 05/08/19 20:12 05/08/19 20:12 DC Labetalol HCl (Normodyne Iv Push) 10 mg PRN Q2HR PRN 05/17/19 08:30 Lacosamide 100 mg/ Dextrose 60 ml @ 120 mls/hr BID 05/18/19 15:00 05/23/19 14:43 DC 05/23/19 08:22 120 MLS/HR Lactobacillus Rhamnosus (Culturelle) 1 cap BID 05/12/19 21:00 05/23/19 13:02 DC 05/23/19 08:49 1 CAP Levetiracetam 250 mg/Dextrose 102.5 ml @ 420 mls/hr Q12HR 05/23/19 15:00 05/23/19 21:03 420 MLS/HR Lidocaine HCl (Buffered Lidocaine 1%) 4 ml 1X ONCE 05/15/19 14:30 05/15/19 14:38 DC 05/15/19 14:30 4 ML Lidocaine HCl (Lidocaine Pf 2% Vial) 5 ml STK-MED ONCE 05/08/19 19:34 05/08/19 19:34 DC Lisinopril (Prinivil) 10 mg DAILY 05/13/19 09:00 05/16/19 10:07 DC 05/14/19 09:14 10 MG Lorazepam (Ativan Inj) 1 mg PRN Q4HRS PRN 05/19/19 08:00 05/19/19 16:19 DC 05/19/19 12:38 1 MG Meropenem 500 mg/ Sodium Chloride 50 ml @ 100 mls/hr Q8HRS 05/21/19 14:00 05/22/19 08:24 DC 05/22/19 06:13 100 MLS/HR Metoclopramide HCl (Reglan Vial) 10 mg 1X ONCE 05/08/19 17:00 05/08/19 17:01 DC 05/08/19 16:51 10 MG Metronidazole 100 ml @ 100 mls/hr Q8HRS 05/14/19 14:00 05/18/19 08:18 DC 05/18/19 06:28 100 MLS/HR Micafungin Sodium 100 mg/Dextrose 100 ml @ 100 mls/hr Q24H 05/14/19 11:00 05/20/19 08:07 DC 05/19/19 11:32 100 MLS/HR Midazolam HCl (Versed) 1 mg 1X ONCE 05/15/19 14:30 05/15/19 14:38 DC 05/15/19 14:30 1 MG Multi-Ingredient Ointment (Analgesic Convoy) 1 jazlyn PRN QID PRN 05/11/19 11:30 Naloxone HCl (Narcan) 0.4 mg STK-MED ONCE 05/15/19 13:47 05/15/19 13:47 DC Neostigmine Methylsulfate (Neostigmine Methylsulfate) 5 mg STK-MED ONCE 05/08/19 21:27 05/08/19 21:27 DC Norepinephrine Bitartrate 250 ml @ 17.961 mls/ hr CONT PRN 05/22/19 19:00 05/23/19 08:51 8.424 MLS/HR Ondansetron HCl (Zofran) 4 mg PRN Q6HRS PRN 05/13/19 08:30 UNV Pantoprazole Sodium (PROTONIX VIAL for IV PUSH) 40 mg DAILYAC 05/17/19 13:00 05/23/19 08:21 40 MG Pantoprazole Sodium (Protonix) 40 mg DAILYAC 05/12/19 09:00 05/17/19 11:29 DC 05/14/19 06:04 40 MG Phenol (Chloraseptic) 1 spray PRN Q2HR PRN 05/11/19 11:30 05/11/19 13:12 1 SPRAY Phenylephrine HCl (PHENYLEPHRINE in 0.9% NACL PF) 1 mg STK-MED ONCE 05/08/19 20:33 05/08/19 20:33 DC Piperacillin Sod/ Tazobactam Sod 3.375 gm/Sodium Chloride 50 ml @ 100 mls/hr Q6HRS 05/09/19 00:00 05/14/19 10:28 DC 05/14/19 05:49 100 MLS/HR Potassium Phosphate 13.6 mmol/Magnesium Sulfate 10 meq/ Calcium Gluconate 10 meq/ Multivitamins 10 ml/Chromium/ Copper/Manganese/ Seleni/Zn 1 ml/ Total Parenteral Nutrition/Amino Acids/Dextrose/ Fat Emulsion Intravenous 1,512 ml @ 63 mls/hr TPN CONT 05/18/19 22:00 05/19/19 13:00 DC 05/18/19 22:35 63 MLS/HR Primidone (Mysoline) 25 mg BID 05/12/19 14:30 05/23/19 21:01 25 MG Prochlorperazine Edisylate (Compazine) 5 mg PACU PRN PRN 05/08/19 19:45 05/08/19 23:59 DC Propofol 20 ml @ As Directed STK-MED ONCE 05/08/19 19:34 05/08/19 19:34 DC Ringer's Solution 1,000 ml @ 30 mls/hr Q24H 05/08/19 20:00 05/09/19 01:00 DC 05/08/19 23:06 30 MLS/HR Rocuronium Hutchinson (Zemuron) 50 mg STK-MED ONCE 05/08/19 19:34 05/08/19 19:34 DC Sevoflurane (Ultane) 60 ml STK-MED ONCE 05/08/19 21:44 05/08/19 21:44 DC Simvastatin (Zocor) 10 mg QHS 05/12/19 21:00 05/23/19 21:01 10 MG Sodium Bicarbonate 75 meq/Sterile Water 575 ml @ 125 mls/hr Q4H36M ONCE 05/23/19 08:30 05/23/19 13:05 DC 05/23/19 08:42 125 MLS/HR Sodium Acetate 40 meq/Potassium Phosphate 3.4 mmol/Magnesium Sulfate 10 meq/ Calcium Gluconate 5 meq/ Multivitamins 10 ml/Chromium/ Copper/Manganese/ Seleni/Zn 1 ml/ Insulin Human Regular 10 unit/ Total Parenteral Nutrition/Amino Acids/Dextrose/ Fat Emulsion Intravenous 2,400 ml @ 100 mls/hr TPN CONT 05/23/19 22:00 05/24/19 21:59 05/23/19 21:02 100 MLS/HR Sodium Chloride 1,000 ml @ 1,000 mls/hr 1X ONCE 05/23/19 08:00 05/23/19 08:59 DC 05/23/19 08:11 1,000 MLS/HR Sodium Chloride 40 meq/Potassium Phosphate 13.6 mmol/Magnesium Sulfate 10 meq/ Calcium Gluconate 5 meq/ Multivitamins 10 ml/Chromium/ Copper/Manganese/ Seleni/Zn 1 ml/ Total Parenteral Nutrition/Amino Acids/Dextrose/ Fat Emulsion Intravenous 1,800 ml @ 75 mls/hr TPN CONT 05/22/19 22:00 05/23/19 21:59 DC 05/22/19 21:40 75 MLS/HR Sodium Chloride 60 meq/Potassium Chloride 30 meq/ Potassium Phosphate 13.6 mmol/Magnesium Sulfate 10 meq/ Calcium Gluconate 10 meq/ Multivitamins 10 ml/Chromium/ Copper/Manganese/ Seleni/Zn 1 ml/ Total Parenteral Nutrition/Amino Acids/Dextrose/ Fat Emulsion Intravenous 1,512 ml @ 63 mls/hr TPN CONT 05/17/19 22:00 05/18/19 21:59 DC 05/17/19 23:13 63 MLS/HR Sodium Chloride 90 meq/Potassium Chloride 50 meq/ Potassium Phosphate 13.6 mmol/Magnesium Sulfate 10 meq/ Calcium Gluconate 10 meq/ Multivitamins 10 ml/Chromium/ Copper/Manganese/ Seleni/Zn 1 ml/ Total Parenteral Nutrition/Amino Acids/Dextrose/ Fat Emulsion Intravenous 1,512 ml @ 63 mls/hr TPN CONT 05/16/19 22:00 05/17/19 21:59 DC 05/16/19 21:56 63 MLS/HR Succinylcholine Chloride (Anectine) 200 mg STK-MED ONCE 05/08/19 19:34 05/08/19 19:34 DC Tramadol HCl (Ultram) 50 mg PRN Q6HRS PRN 05/13/19 08:30 05/19/19 16:19 DC 05/14/19 04:27 50 MG Venlafaxine HCl (Effexor Xr) 37.5 mg BID 05/13/19 09:00 05/13/19 08:33 DC Venlafaxine HCl (Effexor) 75 mg DAILY 05/12/19 13:30 05/12/19 14:20 DC 05/12/19 13:34 75 MG Lab Laboratory Tests Test 05/23/19 12:36 05/23/19 17:45 05/24/19 00:06 05/24/19 06:00 Glucose (Fingerstick) 320 mg/dL (70-99) 278 mg/dL (70-99) 294 mg/dL (70-99) Sodium Level 142 mmol/L (136-145) Potassium Level 4.4 mmol/L (3.5-5.1) Chloride Level 108 mmol/L (98-107) Carbon Dioxide Level 22 mmol/L (21-32) Anion Gap 12 (6-14) Blood Urea Nitrogen 63 mg/dL (8-26) Creatinine 2.5 mg/dL (0.7-1.3) Estimated GFR (Cockcroft-Gault) 25.4 Glucose Level 273 mg/dL (70-99) Calcium Level 8.4 mg/dL (8.5-10.1) Phosphorus Level 4.0 mg/dL (2.6-4.7) Magnesium Level 2.1 mg/dL (1.8-2.4) Test 05/24/19 06:07 Glucose (Fingerstick) 256 mg/dL (70-99) Results All relevant outside records, renal labs, imaging studies, telemetry/EKG's were reviewed. CHAS BASURTO MD May 24, 2019 09:50
[2019-05-24 10:44] LABS: BILIRUBIN,URINE NEGATIVE (NEG); CLARITY,URINE TURBID; COLOR,URINE YELLOW; NITRITE,URINE NEGATIVE (NEG); PROTEIN,URINE 30 mg/dL (NEG-TRACE); UROBILINOGEN,URINE 0.2 mg/dL (0.2 mg/dL)
[2019-05-24 10:59] LABS: BACTERIA,URINE 0 /HPF (0-FEW); RBC,URINE RARE /HPF (0-2); WBC,URINE 0 /HPF (0-4)
[2019-05-24] MEDS: TPN PER PHARMACY MC PRN (11:34)
--- NOTE | 2019-05-24 11:34 | NUR ---
Pharmacy TPN Dosing Note S: MORIAH BARRAGAN is a 73 year old M Currently receiving Central Continuous TPN started 05/15/19 B:Pertinent PMH: Perforated duodenal ulcer Height: 5 feet, 10 inches Weight: 91.260544 kg Current diet: NPO LABS: Sodium: 142 Potassium: 4.4 Chloride: 108 Calcium: 8.4 Corrected Calcium: 10.08 Magnesium: 2.1 CO2: 22 SCr: 2.4 Glucose: 2.5 Albumin: 1.9 AST: 28 ALT: 24 TPN FORMULA: TPN TYPE: Central Continuous AMINO ACIDS: 70 gm DEXTROSE: 225 gm LIPIDS: 30 gm SODIUM CHLORIDE: 40 mEq SODIUM ACETATE: 40 mEq SODIUM PHOSPHATE: mmol POTASSIUM CHLORIDE: - mEq POTASSIUM ACETATE: mEq POTASSIUM PHOSPHATE: 3.4 mmol MAGNESIUM: 10 mEq CALCIUM: 5 mEq INSULIN: 30 units MULTIPLE VITAMIN: 10 ml TRACE ELEMENTS: 1 ml(s) TPN PLAN: Dr. Samantha Toledo resquested that insulin be increased to 30 units, no other changes, labs in the am R: Continue TPN as written above. Will monitor electrolytes, glucose, and tolerance to TPN. DEBBY ALLEN [facility], 05/24/19 [id number]
--- NOTE | 2019-05-24 12:08 | PDOC ---
[employer] PROGRESS NOTE Chief Complaint Chief Complaint Perforated Duodenal Ulcer, Severe Sepsis. History of Present Illness History of Present Illness The patient is a 73-year-old male with acute onset of right-sided mid abdominal pain, nausea, vomiting, started one hour prior to arrival. He had several episodes of vomiting since the onset. The patient was evaluated in the Emergency Room, underwent imaging studies revealing some free air in the abdomen. He subsequently underwent exploratory laparotomy by Dr. Hickman, revealing evidence of a perforated duodenal ulcer. He underwent diagnostic laparoscopy with open laparotomy and closure of a duodenal ulcer with a Dawood patch. 05/23: Patient was seen and examined in ICU, patient is asleep and non- arousable, Discussed with RN, who states that the patient was given pain medication last night for abdominal pain and is tender to palpation of the abdomen. Patient was noted to be shaking rapidly. Patient was running a low grade fever last night, however is not currently running a fever. 05/24: Patient was seen and examined in ICU, patient is sleeping soundly and not shaking today. DW . Wound dressing is noted to be clean/ dry and intact. P atient currently on a Patrick to BSD. TPN is currently running. Patient has 2 THANG drains in RLQ. Vitals/I&O Vitals/I&O: Vital Signs Date Time Temp Pulse Resp B/P (MAP) Pulse Ox O2 Delivery O2 Flow Rate FiO2 05/24/19 11:55 83 23 110/46 (67) 94 Room Air 05/24/19 08:00 99.6 99.6 05/24/19 04:00 3.0 I & O 05/23/19 05/23/19 05/24/19 15:00 23:00 07:00 Intake Total 560 ml 1404.5 ml 1326 ml Output Total 685 ml 660 ml 1095 ml Balance -125 ml 744.5 ml 231 ml Physical Exam Physical Exam: GENERAL: Laying in bed, NAD - HEENT: Pupils equally round. Oropharynx is clear. NGT NECK: Supple. LUNGS: Clear to auscultation. HEART: S1, S2 regular. ABDOMEN: Obese, soft, less distension. NT with hypoactive bowel sounds. Surgical dressings are dry and THANG drain intact- with continued bilious drainage. New THANG with serous fluid EXTREMITIES: No gross edema or cyanosis.. Right shoulder incision well-approx stable, clean. SKIN: Warm to touch. No signs of rash. NEUROLOGIC: sleepy, no focal deficit LUE - clean General: Cooperative, No acute distress Heart: Regular rate (SR), Other (distant heart sounds) Lungs: Crackles, Other Abdomen: Soft, Other (thang bilious ) Extremities: No clubbing, No cyanosis, No edema, Normal pulses, No tenderness/swelling Skin: No rashes, No breakdown, No significant lesion, Other (abdominal surgical incision) Labs Labs: Laboratory Tests Test 05/23/19 12:36 05/23/19 17:45 05/24/19 00:06 05/24/19 06:00 Glucose (Fingerstick) 320 mg/dL (70-99) 278 mg/dL (70-99) 294 mg/dL (70-99) Sodium Level 142 mmol/L (136-145) Potassium Level 4.4 mmol/L (3.5-5.1) Chloride Level 108 mmol/L (98-107) Carbon Dioxide Level 22 mmol/L (21-32) Anion Gap 12 (6-14) Blood Urea Nitrogen 63 mg/dL (8-26) Creatinine 2.5 mg/dL (0.7-1.3) Estimated GFR (Cockcroft-Gault) 25.4 Glucose Level 273 mg/dL (70-99) Calcium Level 8.4 mg/dL (8.5-10.1) Phosphorus Level 4.0 mg/dL (2.6-4.7) Magnesium Level 2.1 mg/dL (1.8-2.4) Creatine Kinase 141 U/L (39-308) Test 05/24/19 06:07 05/24/19 10:15 05/24/19 11:32 Glucose (Fingerstick) 256 mg/dL (70-99) 243 mg/dL (70-99) Urine Collection Type Unknown Urine Color Yellow Urine Clarity Turbid Urine pH 5.0 Urine Specific Rogers 1.015 Urine Protein 30 mg/dL (NEG-TRACE) Urine Glucose (UA) 100 mg/dL (NEG) Urine Ketones (Stick) Negative mg/dL (NEG) Urine Blood Moderate (NEG) Urine Nitrite Negative (NEG) Urine Bilirubin Negative (NEG) Urine Urobilinogen Dipstick 0.2 mg/dL (0.2 mg/dL) Urine Leukocyte Esterase Negative (NEG) Urine RBC Rare /HPF (0-2) Urine WBC 0 /HPF (0-4) Urine Bacteria 0 /HPF (0-FEW) Review of Systems Review of Systems: Patient is asleep and unarousable upon interview. Assessment and Plan Assessmemt and Plan Problems Medical Problems: (1) Perforated intestine, nontraumatic Status: Acute Assessment: Perforated Duodenal ulcer, severe sepsis Plan: 1. ICU monitoring 2. Continue wound care 3. IV antibiotics 4. TPN 5. Trend labs 6. continue Patrick to BSD 7. NG suction 8. DVT prophylaxis 9. Full code Comment Review of Relevant I have reviewed the following items adriano (where applicable) has been applied. Medications: Current Medications Medications (Trade) Dose Ordered Sig/Ventura Route PRN Reason Start Time Stop Time Status Last Admin Dose Admin Sodium Acetate 40 meq/Potassium Phosphate 3.4 mmol/Magnesium Sulfate 10 meq/ Calcium Gluconate 5 meq/ Multivitamins 10 ml/Chromium/ Copper/Manganese/ Seleni/Zn 1 ml/ Insulin Human Regular 10 unit/ Total Parenteral Nutrition/Amino Acids/Dextrose/ Fat Emulsion Intravenous 2,400 ml @ 100 mls/hr TPN CONT IV 05/23/19 22:00 05/24/19 21:59 05/23/19 21:02 Levetiracetam 250 mg/Dextrose 102.5 ml @ 420 mls/hr Q12HR IV 05/23/19 15:00 05/24/19 09:40 Ringer's Solution 1,000 ml @ 75 mls/hr [id number] IV 05/24/19 09:45 05/24/19 23:04 05/24/19 10:19 HEATHER WRIGHT III DO May 24, 2019 12:08
--- NOTE | 2019-05-24 12:39 | PDOC ---
PULMONARY PROGRESS NOTES Subjective Pt. is now off pressors, minimally responsive nursing reports decreased drainage from MACKENZIE remains on N/C oxygen Vitals Vital Signs Date Time Temp Pulse Resp B/P (MAP) Pulse Ox O2 Delivery O2 Flow Rate FiO2 05/24/19 11:55 83 23 110/46 (67) 94 Room Air 05/24/19 08:00 99.6 99.6 05/24/19 04:00 3.0 Comments UNABLE TO ROS General: Lethargic Lungs: Crackles Cardiovascular: S1, S2 Abdomen: Soft, Other (MACKENZIE drain in L quad ) Extremities: No Edema, Other Skin: Warm, Dry Labs Laboratory Tests Test 05/22/19 18:23 05/22/19 19:05 05/22/19 21:05 05/23/19 00:24 Glucose (Fingerstick) 217 mg/dL (70-99) 214 mg/dL (70-99) 301 mg/dL (70-99) White Blood Count 11.0 x10^3/uL (4.0-11.0) Red Blood Count 2.62 x10^6/uL (4.30-5.70) Hemoglobin 8.1 g/dL (13.0-17.5) Hematocrit 24.8 % (39.0-53.0) Mean Corpuscular Volume 95 fL (79-100) Mean Corpuscular Hemoglobin 31 pg (25-35) Mean Corpuscular Hemoglobin Concent 33 g/dL (31-37) Red Cell Distribution Width 14.4 % (11.5-14.5) Platelet Count 424 x10^3/uL (140-400) Neutrophils (%) (Auto) 81 % (31-73) Lymphocytes (%) (Auto) 10 % (24-48) Monocytes (%) (Auto) 8 % (0-9) Eosinophils (%) (Auto) 1 % (0-3) Basophils (%) (Auto) 1 % (0-3) Neutrophils # (Auto) 8.9 x10^3/uL (1.8-7.7) Lymphocytes # (Auto) 1.1 x10^3/uL (1.0-4.8) Monocytes # (Auto) 0.9 x10^3/uL (0.0-1.1) Eosinophils # (Auto) 0.1 x10^3/uL (0.0-0.7) Basophils # (Auto) 0.1 x10^3/uL (0.0-0.2) Sodium Level 143 mmol/L (136-145) Potassium Level 4.9 mmol/L (3.5-5.1) Chloride Level 109 mmol/L (98-107) Carbon Dioxide Level 22 mmol/L (21-32) Anion Gap 12 (6-14) Blood Urea Nitrogen 41 mg/dL (8-26) Creatinine 1.7 mg/dL (0.7-1.3) Estimated GFR (Cockcroft-Gault) 39.7 BUN/Creatinine Ratio 24 (6-20) Glucose Level 234 mg/dL (70-99) Lactic Acid Level 1.4 mmol/L (0.4-2.0) Calcium Level 8.4 mg/dL (8.5-10.1) Total Bilirubin 0.4 mg/dL (0.2-1.0) Aspartate Amino Transf (AST/SGOT) 28 U/L (15-37) Alanine Aminotransferase (ALT/SGPT) 24 U/L (16-63) Alkaline Phosphatase 131 U/L (46-116) Total Protein 6.1 g/dL (6.4-8.2) Albumin 1.9 g/dL (3.4-5.0) Albumin/Globulin Ratio 0.5 (1.0-1.7) Test 05/23/19 06:16 05/23/19 06:40 05/23/19 12:36 05/23/19 17:45 Glucose (Fingerstick) 320 mg/dL (70-99) 320 mg/dL (70-99) 278 mg/dL (70-99) Hemoglobin 7.2 g/dL (13.0-17.5) Sodium Level 142 mmol/L (136-145) Potassium Level 5.1 mmol/L (3.5-5.1) Chloride Level 109 mmol/L (98-107) Carbon Dioxide Level 20 mmol/L (21-32) Anion Gap 13 (6-14) Blood Urea Nitrogen 56 mg/dL (8-26) Creatinine 2.4 mg/dL (0.7-1.3) Estimated GFR (Cockcroft-Gault) 26.7 Glucose Level 355 mg/dL (70-99) Calcium Level 8.4 mg/dL (8.5-10.1) Phosphorus Level 4.4 mg/dL (2.6-4.7) Magnesium Level 2.1 mg/dL (1.8-2.4) Test 05/24/19 00:06 05/24/19 06:00 05/24/19 06:07 05/24/19 10:15 Glucose (Fingerstick) 294 mg/dL (70-99) 256 mg/dL (70-99) Sodium Level 142 mmol/L (136-145) Potassium Level 4.4 mmol/L (3.5-5.1) Chloride Level 108 mmol/L (98-107) Carbon Dioxide Level 22 mmol/L (21-32) Anion Gap 12 (6-14) Blood Urea Nitrogen 63 mg/dL (8-26) Creatinine 2.5 mg/dL (0.7-1.3) Estimated GFR (Cockcroft-Gault) 25.4 Glucose Level 273 mg/dL (70-99) Calcium Level 8.4 mg/dL (8.5-10.1) Phosphorus Level 4.0 mg/dL (2.6-4.7) Magnesium Level 2.1 mg/dL (1.8-2.4) Creatine Kinase 141 U/L (39-308) Urine Collection Type Unknown Urine Color Yellow Urine Clarity Turbid Urine pH 5.0 Urine Specific [place] 1.015 Urine Protein 30 mg/dL (NEG-TRACE) Urine Glucose (UA) 100 mg/dL (NEG) Urine Ketones (Stick) Negative mg/dL (NEG) Urine Blood Moderate (NEG) Urine Nitrite Negative (NEG) Urine Bilirubin Negative (NEG) Urine Urobilinogen Dipstick 0.2 mg/dL (0.2 mg/dL) Urine Leukocyte Esterase Negative (NEG) Urine RBC Rare /HPF (0-2) Urine WBC 0 /HPF (0-4) Urine Bacteria 0 /HPF (0-FEW) Test 05/24/19 11:32 Glucose (Fingerstick) 243 mg/dL (70-99) Laboratory Tests Test 05/23/19 12:36 05/23/19 17:45 05/24/19 00:06 05/24/19 06:00 Glucose (Fingerstick) 320 mg/dL (70-99) 278 mg/dL (70-99) 294 mg/dL (70-99) Sodium Level 142 mmol/L (136-145) Potassium Level 4.4 mmol/L (3.5-5.1) Chloride Level 108 mmol/L (98-107) Carbon Dioxide Level 22 mmol/L (21-32) Anion Gap 12 (6-14) Blood Urea Nitrogen 63 mg/dL (8-26) Creatinine 2.5 mg/dL (0.7-1.3) Estimated GFR (Cockcroft-Gault) 25.4 Glucose Level 273 mg/dL (70-99) Calcium Level 8.4 mg/dL (8.5-10.1) Phosphorus Level 4.0 mg/dL (2.6-4.7) Magnesium Level 2.1 mg/dL (1.8-2.4) Creatine Kinase 141 U/L (39-308) Test 05/24/19 06:07 05/24/19 10:15 05/24/19 11:32 Glucose (Fingerstick) 256 mg/dL (70-99) 243 mg/dL (70-99) Urine Collection Type Unknown Urine Color Yellow Urine Clarity Turbid Urine pH 5.0 Urine Specific [place] 1.015 Urine Protein 30 mg/dL (NEG-TRACE) Urine Glucose (UA) 100 mg/dL (NEG) Urine Ketones (Stick) Negative mg/dL (NEG) Urine Blood Moderate (NEG) Urine Nitrite Negative (NEG) Urine Bilirubin Negative (NEG) Urine Urobilinogen Dipstick 0.2 mg/dL (0.2 mg/dL) Urine Leukocyte Esterase Negative (NEG) Urine RBC Rare /HPF (0-2) Urine WBC 0 /HPF (0-4) Urine Bacteria 0 /HPF (0-FEW) Medications Active Scripts Medications Dose Route/Sig Max Daily Dose Days Date Category Venlafaxine Hcl 75 Mg Tablet Unknown Dose PO DAILY 02/18/19 Reported Simvastatin 10 Mg Tablet 10 Mg PO DAILY 02/18/19 Reported Metformin Hcl 1,000 Mg Tablet 1,000 Mg PO BIDWMEALS 02/18/19 Reported Meloxicam 15 Mg Tablet Unknown Dose PO DAILY 02/18/19 Reported Lisinopril 10 Mg Tablet Unknown Dose PO DAILY 02/18/19 Reported Humalog (Insulin Lispro) 100 Unit/1 Ml Cartridge 100 Unit SQ 02/18/19 Reported Sinemet 25-100 Mg Tablet (Carbidopa/Levodopa) 1 Each Tablet 1 Tab PO TID 02/18/19 Reported Impression . 1. EXPECTED RESP FAILURE status post repair of a perforated duodenal ulcer. 2. Status post laparoscopy with open laparotomy for closure of a duodenal ulcer with Dawood patch. 05/08 3. Acute exacerbation of chronic obstructive pulmonary disease, resolving. 4. Tobacco dependence. 5. Hypertension. 6. Recent right shoulder repair. 7. ACUTE BLOOD LOSS ANEMIA WILL TRANSFUSE IF LESS THAN 7 8. Fever. 9. Possible sepsis present upon admission. 10. CT-guided abdominal drain placement as described. 05/15 11. delrium 12. hypotension --improved Plan . 1. Follow recommendations from surgery 2. currently of ABX, ID is following 3. cont. TPN and IVF 4. Continue supplemental oxygen and bronchodilators 5. pulmonary hygiene 6. supportive care TG RAZO MD May 24, 2019 12:39
--- NOTE | 2019-05-24 13:15 | PDOC ---
Infectious Disease Note Subjective Subjective Confused Periods of restlessness Tmax 99.9 ax + output MACKENZIE drain TPN ROS ROS unobtainable Vital Sign Vital Signs Vital Signs Date Time Temp Pulse Resp B/P (MAP) Pulse Ox O2 Delivery O2 Flow Rate FiO2 05/24/19 12:56 99.9 80 21 95/57 (70) 95 Room Air 99.9 05/24/19 04:00 3.0 Physical Exam PHYSICAL EXAM GENERAL: Propped up in bed, encephalopathic, mittens in place HEENT: Pupils equally round. Oropharynx very dry, NGT NECK: Supple. LUNGS: Clear to auscultation. HEART: S1, S2 regular. ABDOMEN: Obese, soft, no guarding or grimacing to palpation. MACKENZIE drain. incision healing well, hypoactive bowel sounds : Indwelling Patrick in place EXTREMITIES: No gross edema or cyanosis.. Right shoulder incision healing well SKIN: Warm to touch. No signs of rash. NEUROLOGIC: Arouses to gentle stimuli, no follow commands or answers questions LUE - PICC clean Labs Lab Laboratory Tests Test 05/23/19 17:45 05/24/19 00:06 05/24/19 06:00 05/24/19 06:07 Glucose (Fingerstick) 278 mg/dL (70-99) 294 mg/dL (70-99) 256 mg/dL (70-99) Sodium Level 142 mmol/L (136-145) Potassium Level 4.4 mmol/L (3.5-5.1) Chloride Level 108 mmol/L (98-107) Carbon Dioxide Level 22 mmol/L (21-32) Anion Gap 12 (6-14) Blood Urea Nitrogen 63 mg/dL (8-26) Creatinine 2.5 mg/dL (0.7-1.3) Estimated GFR (Cockcroft-Gault) 25.4 Glucose Level 273 mg/dL (70-99) Calcium Level 8.4 mg/dL (8.5-10.1) Phosphorus Level 4.0 mg/dL (2.6-4.7) Magnesium Level 2.1 mg/dL (1.8-2.4) Creatine Kinase 141 U/L (39-308) Test 05/24/19 10:15 05/24/19 11:32 Urine Collection Type Unknown Urine Color Yellow Urine Clarity Turbid Urine pH 5.0 Urine Specific [place] 1.015 Urine Protein 30 mg/dL (NEG-TRACE) Urine Glucose (UA) 100 mg/dL (NEG) Urine Ketones (Stick) Negative mg/dL (NEG) Urine Blood Moderate (NEG) Urine Nitrite Negative (NEG) Urine Bilirubin Negative (NEG) Urine Urobilinogen Dipstick 0.2 mg/dL (0.2 mg/dL) Urine Leukocyte Esterase Negative (NEG) Urine RBC Rare /HPF (0-2) Urine WBC 0 /HPF (0-4) Urine Bacteria 0 /HPF (0-FEW) Glucose (Fingerstick) 243 mg/dL (70-99) Micro Microbiology 05/15/19 AFB Specimen Processing Tissue - Final, Resulted 05/15/19 Acid Fast Bacilli Culture, Resulted Pending 05/15/19 Gram Stain - Final, Resulted 05/15/19 Fungal Culture - Preliminary, Resulted 05/15/19 Fungal Culture Result 1 - Preliminary, Resulted Objective Assessment Acute encephalopathy Perforated duodenal ulcer s/p repair, 05/08 no apparent cultures, repair failure -fluid collection s/p abdominal drain placed 05/15. cultures neg. (on abx prior) Fever - resolved Leukocytosis - resolved Abx allergy: Sulfa and cipro w/ rash Acute respiratory failure s/p Bronchoscopy with BAL, 05/09. mucous plugging GREGG Nonobstructing calculus of the right kidney. Recent right shoulder joint replacement, 05/06 at [facility] Plan of Care Off antibiotics Maintain aspiration precautions D/w nursing Patient seen and examined. Labs, micro, and chart reviewed. Maintain aspiration precautions D/W PLATE WORKEREDILBERTO GUZMÁN APRN May 24, 2019 13:15 TORSTEN BASURTO MD May 24, 2019 13:39
[2019-05-24] MEDS: SIMVASTATIN 10 MG TABLET PO SCH (21:00)
[2019-05-24] MEDS ORDERED: DARBEPOETIN ALFA 60 MCG/0.3 ML DISP.SYRIN. SQ SCH (21:00)
[2019-05-24] MEDS: INSULIN GLARGINE SYRINGE. SQ SCH (21:04)
[2019-05-24] MEDS ORDERED: DEXTROSE 70% IV SCH ×10 (22:00)
[2019-05-24] MEDS ORDERED: AMINO ACID IV SCH ×10 (22:00)
[2019-05-24] MEDS ORDERED: [UNRECOGNIZED DRUG - OTHER] IV SCH ×10 (22:00)
[2019-05-24] MEDS ORDERED: TOTAL PARENTERAL NUTRITION IV SCH ×10 (22:00)
[2019-05-25] VITALS (29 sets, daily range): BP systolic 86–162; BP diastolic 43–79
[2019-05-25] MEDS: INSULIN LISPRO 300 UNITS/3 ML VIAL. SQ SCH ×4 (00:04→17:00)
[2019-05-25] MEDS: IPRATRPIUM/ALBUTEROL 0.5/2.5MG 3 ML NEBU. NEB SCH ×4 (08:10→20:05)
[2019-05-25] MEDS: BUDESONIDE 0.5 MG/2 ML NEBU. NEB SCH ×2 (08:10→20:05)
--- NOTE | 2019-05-25 08:29 | PDOC ---
SUBJECTIVE ROS Follow-up for acute kidney injury + possible chronic kidney disease Patient's NG tube has been removed today. He appears much less agitated, appears to be sleeping currently OBJECTIVE Vital Signs Vital Signs Date Time Temp Pulse Resp B/P (MAP) Pulse Ox O2 Delivery O2 Flow Rate FiO2 05/25/19 07:51 Room Air 05/25/19 07:00 93 24 160/69 (99) 95 05/25/19 04:00 3.0 05/25/19 04:00 99.8 99.8 I & 0 Intake and Output 05/25/19 07:00 Intake Total 3592.0 ml Output Total 3190 ml Balance 402.0 ml IV Total 3592.0 ml Output Urine Total 2230 ml Gastric Drainage Total 400 ml Drainage Total 560 ml PHYSICAL EXAM Physical Exam GEN: Appears calm overall. In no visible distress, EYES: Sclera is anicteric Conjunctiva Normal EN: No EN Drainage, Mucous Membranes dry NECK: no JVD, no JVP, Supple, no Thyromegaly CVS: S1S2, possible Murmur, No Gallop, No Rub,no Edema RESP: no Rales, no Rhonchi,no Acc. Muscle Use GI: BS rare, NO Bruit, Min Tender, Non Distended : no CVA tenderness, no Suprapubic Tenderness, Patrick catheter in place DIAGNOSIS/ASSESSMENT Assessment & Plan ARF: Creatinine. Available today. Recheck UA is noted., urine sodium is 39. Given urine abnormalities, CPK will be checked Marginal oliguria: Urine outputs much improved after IV fluid boluses as ordered yesterday Chronic kidney disease stage III underlying with baseline creatinine of 1.5 given other foci of atherosclerotic vascular disease cannot be ruled out. Severe hypoalbuminemia: Presumably associated with recent perforation of viscus and surgery. Continue parental nutrition for now. Transition to tube feeds/enteraloral feeding if and when approved by general surgery. TPN changes discussed with PharmD ANEMIA; may need blood transfusion hemoglobin drops below 7. IV iron will not be ordered for now due to ongoing low-grade fevers. Now on epo Right renal calculus: Will require outpatient urology evaluation. No current urology coverage available at this hospital. Await UA. Another CT scan for his intra-abdominal pathology is contemplated in the near future hence imaging studies for this have not been reordered TPN - Will need better fingerstick sugar control, added insulin to TPN. Discussed Plan of Care with WAITER/WAITRESS COUNTER and at bedside COMMENT/RELEVANT DATA Meds Current Medications Medications (Trade) Dose Ordered Sig/[place]ura Start Time Stop Time Status Last Admin Dose Admin Acetaminophen (Tylenol) 500 mg PRN Q6HRS PRN 05/13/19 08:30 Albumin Human 500 ml @ 250 mls/hr 1X ONCE 05/09/19 00:30 05/09/19 02:29 DC 05/09/19 00:10 250 MLS/HR Albuterol/ Ipratropium (Duoneb) 3 ml RTQID 05/10/19 08:00 05/24/19 19:55 3 ML Amino Acids/ Glycerin/ Electrolytes 1,000 ml @ 80 mls/hr [id number] 05/19/19 13:00 05/22/19 21:59 DC 05/22/19 06:13 80 MLS/HR Bacitracin (Bacitracin Zinc Oint Pkt) 1 pkt DAILY 05/18/19 10:15 05/24/19 09:38 1 PKT Bisacodyl (Dulcolax Supp) 10 mg PRN DAILY PRN 05/21/19 15:45 05/21/19 16:34 10 MG Budesonide (Pulmicort) 0.5 mg RTBID 05/10/19 08:00 05/24/19 19:56 0.5 MG Bupivacaine HCl (Sensorcaine Mpf 0.5%) 30 ml STK-MED ONCE 05/08/19 21:39 05/08/19 21:39 DC Bupivacaine HCl/ Epinephrine Bitart (Sensorcaine-Epi 0.25%-1:[id number] Mpf) 30 ml 1X ONCE 05/08/19 20:00 05/08/19 20:01 DC 05/08/19 20:32 26 ML Carbidopa/Levodopa (Sinemet 25/100) 1 tab TID 05/12/19 14:00 05/12/19 13:40 DC Cefepime HCl (Maxipime) 2 gm Q8HRS 05/14/19 12:00 05/18/19 08:18 DC 05/18/19 06:25 2 GM Clonidine HCl (Catapres) 0.1 mg PRN Q1HR PRN 05/13/19 08:30 Daptomycin 570 mg/ Sodium Chloride 50 ml @ 100 mls/hr Q24H 05/14/19 11:30 05/20/19 08:07 DC 05/19/19 13:21 100 MLS/HR Darbepoetin Jose (ARANESP for NON-DIALYSIS PTS) 60 mcg WEEKLYHS 05/24/19 21:00 05/24/19 21:07 60 MCG Dexamethasone Sodium Phosphate (Decadron) 4 mg STK-MED ONCE 05/08/19 19:34 05/08/19 19:34 DC Dextrose (Dextrose 50%-Water Syringe) 12.5 gm PRN Q15MIN PRN 05/16/19 13:15 Dextrose/Sodium Chloride 1,000 ml @ 150 mls/hr Q6H40M 05/09/19 08:45 05/09/19 18:30 DC 05/09/19 12:28 150 MLS/HR Diphenhydramine HCl (Benadryl) 25 mg 1X ONCE 05/08/19 17:00 05/08/19 17:01 DC 05/08/19 16:51 25 MG Dobutamine HCl/ Dextrose 250 ml @ 15.75 mls/ hr CONT PRN 05/09/19 12:45 05/12/19 13:06 DC Ephedrine Sulfate (ePHEDrine PF IN SALINE SYRINGE) 50 mg STK-MED ONCE 05/08/19 20:36 05/08/19 20:36 DC Epinephrine HCl (Adrenalin) 1 mg STK-MED ONCE 05/08/19 21:39 05/08/19 21:39 DC Fentanyl Citrate (Fentanyl 2ml Vial) 50 mcg 1X ONCE 05/15/19 14:30 05/15/19 14:38 DC 05/15/19 14:30 50 MCG Fluconazole/ Sodium Chloride 100 ml @ 100 mls/hr Q24H 05/08/19 22:00 05/14/19 10:28 DC 05/13/19 21:14 100 MLS/HR Flumazenil (Romazicon) 0.5 mg STK-MED ONCE 05/15/19 13:47 05/15/19 13:47 DC Gabapentin (Neurontin) 300 mg PRN QHS PRN 05/12/19 17:45 05/12/19 20:53 300 MG Glycopyrrolate (Robinul) 1 mg STK-MED ONCE 05/08/19 21:27 05/08/19 21:27 DC Haloperidol Lactate (Haldol Inj) 2.5 mg PRN Q6HRS PRN 05/19/19 08:00 05/20/19 23:24 2.5 MG Heparin Sodium (Porcine) (Heparin Sodium) 5,000 unit BID 05/11/19 10:00 05/24/19 21:04 5,000 UNIT Hydralazine HCl (Apresoline Inj) 10 mg PRN Q4HRS PRN 05/11/19 11:45 Hydromorphone HCl (Dilaudid) 0.5 mg PRN Q2HR PRN 05/19/19 08:00 05/22/19 21:33 0.5 MG Info (CONTRAST GIVEN -- Rx MONITORING) 1 each PRN DAILY PRN 05/14/19 09:00 05/16/19 08:59 DC Info (Tpn Per Pharmacy) 1 each PRN DAILY PRN 05/22/19 09:30 05/24/19 11:34 1 EACH Insulin Glargine (Lantus Syringe) 10 unit ONCE STAT 05/18/19 07:47 05/18/19 07:51 DC 05/18/19 07:47 10 UNIT Insulin Human Lispro (HumaLOG VIAL for OP,RR ONLY) 0-10 units PRN Q1HR PRN 05/08/19 19:45 05/08/19 23:59 DC Insulin Human Lispro (HumaLOG) 0-9 UNITS Q6HRS 05/16/19 18:00 05/25/19 05:57 5 UNITS Insulin Human Regular (HumuLIN R VIAL) 8 unit 1X ONCE 05/16/19 13:15 05/16/19 13:22 DC 05/16/19 13:36 8 UNIT Insulin Human Regular 150 unit/ Sodium Chloride 151.5 ml @ 0 mls/hr CONT PRN 05/08/19 23:00 05/12/19 13:06 DC 05/08/19 23:03 5 MLS/HR Iohexol (Omnipaque 240 Mg/ml) 30 ml 1X ONCE 05/14/19 08:45 05/14/19 08:48 DC 05/14/19 08:45 30 ML Iohexol (Omnipaque 300 Mg/ml) 60 ml 1X ONCE 05/14/19 08:45 10/30/19 08:48 DC 05/14/19 08:45 60 ML Iohexol (Omnipaque 350 Mg/ml) 90 ml 1X ONCE 05/08/19 17:30 05/08/19 17:31 DC 05/08/19 17:45 90 ML Ketamine HCl (Ketamine) 50 mg STK-MED ONCE 05/08/19 20:12 05/08/19 20:12 DC Labetalol HCl (Normodyne Iv Push) 10 mg PRN Q2HR PRN 05/17/19 08:30 Lacosamide 100 mg/ Dextrose 60 ml @ 120 mls/hr BID 05/18/19 15:00 05/23/19 14:43 DC 05/23/19 08:22 120 MLS/HR Lactobacillus Rhamnosus (Culturelle) 1 cap BID 05/12/19 21:00 05/23/19 13:02 DC 05/23/19 08:49 1 CAP Levetiracetam 250 mg/Dextrose 102.5 ml @ 420 mls/hr Q12HR 05/23/19 15:00 05/24/19 21:03 420 MLS/HR Lidocaine HCl (Buffered Lidocaine 1%) 4 ml 1X ONCE 05/15/19 14:30 05/15/19 14:38 DC 05/15/19 14:30 4 ML Lidocaine HCl (Lidocaine Pf 2% Vial) 5 ml STK-MED ONCE 05/08/19 19:34 05/08/19 19:34 DC Lisinopril (Prinivil) 10 mg DAILY 05/13/19 09:00 05/16/19 10:07 DC 05/14/19 09:14 10 MG Lorazepam (Ativan Inj) 1 mg PRN Q4HRS PRN 05/19/19 08:00 05/19/19 16:19 DC 05/19/19 12:38 1 MG Meropenem 500 mg/ Sodium Chloride 50 ml @ 100 mls/hr Q8HRS 05/21/19 14:00 05/22/19 08:24 DC 05/22/19 06:13 100 MLS/HR Metoclopramide HCl (Reglan Vial) 10 mg 1X ONCE 05/08/19 17:00 05/08/19 17:01 DC 05/08/19 16:51 10 MG Metronidazole 100 ml @ 100 mls/hr Q8HRS 05/14/19 14:00 05/18/19 08:18 DC 05/18/19 06:28 100 MLS/HR Micafungin Sodium 100 mg/Dextrose 100 ml @ 100 mls/hr Q24H 05/14/19 11:00 05/20/19 08:07 DC 05/19/19 11:32 100 MLS/HR Midazolam HCl (Versed) 1 mg 1X ONCE 05/15/19 14:30 05/15/19 14:38 DC 05/15/19 14:30 1 MG Multi-Ingredient Ointment (Analgesic [place]) 1 jazlyn PRN QID PRN 05/11/19 11:30 Naloxone HCl (Narcan) 0.4 mg STK-MED ONCE 05/15/19 13:47 05/15/19 13:47 DC Neostigmine Methylsulfate (Neostigmine Methylsulfate) 5 mg STK-MED ONCE 05/08/19 21:27 05/08/19 21:27 DC Norepinephrine Bitartrate 250 ml @ 17.961 mls/ hr CONT PRN 05/22/19 19:00 05/23/19 08:51 8.424 MLS/HR Ondansetron HCl (Zofran) 4 mg PRN Q6HRS PRN 05/13/19 08:30 UNV Pantoprazole Sodium (PROTONIX VIAL for IV PUSH) 40 mg DAILYAC 05/17/19 13:00 05/24/19 09:39 40 MG Pantoprazole Sodium (Protonix) 40 mg DAILYAC 05/12/19 09:00 05/17/19 11:29 DC 05/14/19 06:04 40 MG Phenol (Chloraseptic) 1 spray PRN Q2HR PRN 05/11/19 11:30 05/11/19 13:12 1 SPRAY Phenylephrine HCl (PHENYLEPHRINE in 0.9% NACL PF) 1 mg STK-MED ONCE 05/08/19 20:33 05/08/19 20:33 DC Piperacillin Sod/ Tazobactam Sod 3.375 gm/Sodium Chloride 50 ml @ 100 mls/hr Q6HRS 05/09/19 00:00 05/14/19 10:28 DC 05/14/19 05:49 100 MLS/HR Potassium Phosphate 13.6 mmol/Magnesium Sulfate 10 meq/ Calcium Gluconate 10 meq/ Multivitamins 10 ml/Chromium/ Copper/Manganese/ Seleni/Zn 1 ml/ Total Parenteral Nutrition/Amino Acids/Dextrose/ Fat Emulsion Intravenous 1,512 ml @ 63 mls/hr TPN CONT 05/18/19 22:00 05/19/19 13:00 DC 05/18/19 22:35 63 MLS/HR Primidone (Mysoline) 25 mg BID 05/12/19 14:30 05/23/19 21:01 25 MG Prochlorperazine Edisylate (Compazine) 5 mg PACU PRN PRN 05/08/19 19:45 05/08/19 23:59 DC Propofol 20 ml @ As Directed STK-MED ONCE 05/08/19 19:34 05/08/19 19:34 DC Ringer's Solution 1,000 ml @ 75 mls/hr [id number] 05/24/19 09:45 05/24/19 23:04 DC 05/24/19 10:19 75 MLS/HR Rocuronium [place] (Zemuron) 50 mg STK-MED ONCE 05/08/19 19:34 05/08/19 19:34 DC Sevoflurane (Ultane) 60 ml STK-MED ONCE 05/08/19 21:44 05/08/19 21:44 DC Simvastatin (Zocor) 10 mg QHS 05/12/19 21:00 05/23/19 21:01 10 MG Sodium Bicarbonate 75 meq/Sterile Water 575 ml @ 125 mls/hr Q4H36M ONCE 05/23/19 08:30 05/23/19 13:05 DC 05/23/19 08:42 125 MLS/HR Sodium Acetate 40 meq/Potassium Phosphate 3.4 mmol/Magnesium Sulfate 10 meq/ Calcium Gluconate 5 meq/ Multivitamins 10 ml/Chromium/ Copper/Manganese/ Seleni/Zn 1 ml/ Insulin Human Regular 10 unit/ Total Parenteral Nutrition/Amino Acids/Dextrose/ Fat Emulsion Intravenous 2,400 ml @ 100 mls/hr TPN CONT 05/23/19 22:00 05/24/19 21:59 DC 05/23/19 21:02 100 MLS/HR Sodium Acetate 40 meq/Potassium Phosphate 3.4 mmol/Magnesium Sulfate 10 meq/ Calcium Gluconate 5 meq/ Multivitamins 10 ml/Chromium/ Copper/Manganese/ Seleni/Zn 1 ml/ Insulin Human Regular 30 unit/ Total Parenteral Nutrition/Amino Acids/Dextrose/ Fat Emulsion Intravenous 2,400 ml @ 100 mls/hr TPN CONT 05/24/19 22:00 05/25/19 21:59 05/24/19 21:33 100 MLS/HR Sodium Chloride 1,000 ml @ 1,000 mls/hr 1X ONCE 05/23/19 08:00 05/23/19 08:59 DC 05/23/19 08:11 1,000 MLS/HR Sodium Chloride 40 meq/Potassium Phosphate 13.6 mmol/Magnesium Sulfate 10 meq/ Calcium Gluconate 5 meq/ Multivitamins 10 ml/Chromium/ Copper/Manganese/ Seleni/Zn 1 ml/ Total Parenteral Nutrition/Amino Acids/Dextrose/ Fat Emulsion Intravenous 1,800 ml @ 75 mls/hr TPN CONT 05/22/19 22:00 05/23/19 21:59 DC 05/22/19 21:40 75 MLS/HR Sodium Chloride 60 meq/Potassium Chloride 30 meq/ Potassium Phosphate 13.6 mmol/Magnesium Sulfate 10 meq/ Calcium Gluconate 10 meq/ Multivitamins 10 ml/Chromium/ Copper/Manganese/ Seleni/Zn 1 ml/ Total Parenteral Nutrition/Amino Acids/Dextrose/ Fat Emulsion Intravenous 1,512 ml @ 63 mls/hr TPN CONT 05/17/19 22:00 05/18/19 21:59 DC 05/17/19 23:13 63 MLS/HR Sodium Chloride 90 meq/Potassium Chloride 50 meq/ Potassium Phosphate 13.6 mmol/Magnesium Sulfate 10 meq/ Calcium Gluconate 10 meq/ Multivitamins 10 ml/Chromium/ Copper/Manganese/ Seleni/Zn 1 ml/ Total Parenteral Nutrition/Amino Acids/Dextrose/ Fat Emulsion Intravenous 1,512 ml @ 63 mls/hr TPN CONT 05/16/19 22:00 05/17/19 21:59 DC 05/16/19 21:56 63 MLS/HR Succinylcholine Chloride (Anectine) 200 mg STK-MED ONCE 05/08/19 19:34 05/08/19 19:34 DC Tramadol HCl (Ultram) 50 mg PRN Q6HRS PRN 05/13/19 08:30 05/19/19 16:19 DC 05/14/19 04:27 50 MG Venlafaxine HCl (Effexor Xr) 37.5 mg BID 05/13/19 09:00 05/13/19 08:33 DC Venlafaxine HCl (Effexor) 75 mg DAILY 05/12/19 13:30 05/12/19 14:20 DC 05/12/19 13:34 75 MG Lab Laboratory Tests Test 05/24/19 10:15 05/24/19 11:32 05/24/19 17:30 05/25/19 00:01 Urine Collection Type Unknown Urine Color Yellow Urine Clarity Turbid Urine pH 5.0 Urine Specific [place] 1.015 Urine Protein 30 mg/dL (NEG-TRACE) Urine Glucose (UA) 100 mg/dL (NEG) Urine Ketones (Stick) Negative mg/dL (NEG) Urine Blood Moderate (NEG) Urine Nitrite Negative (NEG) Urine Bilirubin Negative (NEG) Urine Urobilinogen Dipstick 0.2 mg/dL (0.2 mg/dL) Urine Leukocyte Esterase Negative (NEG) Urine RBC Rare /HPF (0-2) Urine WBC 0 /HPF (0-4) Urine Bacteria 0 /HPF (0-FEW) Urine Random Sodium 39 mmol/L (Not Estab.) Glucose (Fingerstick) 243 mg/dL (70-99) 255 mg/dL (70-99) 260 mg/dL (70-99) Test 05/25/19 05:52 Glucose (Fingerstick) 216 mg/dL (70-99) Results All relevant outside records, renal labs, imaging studies, telemetry/EKG's were reviewed. CHAS BASURTO MD May 25, 2019 08:29
[2019-05-25] MEDS ORDERED: MAGNESIUM SULFATE 2GM 50 ML IV PRN (08:30)
--- NOTE | 2019-05-25 08:35 | PDOC ---
SURGICAL PROGRESS NOTE Subjective tells me good morning more alert today Vital Signs Vital Signs Date Time Temp Pulse Resp B/P (MAP) Pulse Ox O2 Delivery O2 Flow Rate FiO2 05/25/19 07:51 Room Air 05/25/19 07:00 93 24 160/69 (99) 95 05/25/19 04:00 3.0 05/25/19 04:00 99.8 99.8 I&O Intake and Output 05/25/19 07:00 Intake Total 3592.0 ml Output Total 3190 ml Balance 402.0 ml IV Total 3592.0 ml Output Urine Total 2230 ml Gastric Drainage Total 400 ml Drainage Total 560 ml PATIENT HAS A FENTON: Yes General: Alert, Cooperative Abdomen: Soft, Other (less drainage from drains ) Labs Laboratory Tests Test 05/23/19 12:36 05/23/19 17:45 05/24/19 00:06 05/24/19 06:00 Glucose (Fingerstick) 320 mg/dL (70-99) 278 mg/dL (70-99) 294 mg/dL (70-99) Sodium Level 142 mmol/L (136-145) Potassium Level 4.4 mmol/L (3.5-5.1) Chloride Level 108 mmol/L (98-107) Carbon Dioxide Level 22 mmol/L (21-32) Anion Gap 12 (6-14) Blood Urea Nitrogen 63 mg/dL (8-26) Creatinine 2.5 mg/dL (0.7-1.3) Estimated GFR (Cockcroft-Gault) 25.4 Glucose Level 273 mg/dL (70-99) Calcium Level 8.4 mg/dL (8.5-10.1) Phosphorus Level 4.0 mg/dL (2.6-4.7) Magnesium Level 2.1 mg/dL (1.8-2.4) Creatine Kinase 141 U/L (39-308) Test 05/24/19 06:07 05/24/19 10:15 05/24/19 11:32 05/24/19 17:30 Glucose (Fingerstick) 256 mg/dL (70-99) 243 mg/dL (70-99) 255 mg/dL (70-99) Urine Collection Type Unknown Urine Color Yellow Urine Clarity Turbid Urine pH 5.0 Urine Specific [place] 1.015 Urine Protein 30 mg/dL (NEG-TRACE) Urine Glucose (UA) 100 mg/dL (NEG) Urine Ketones (Stick) Negative mg/dL (NEG) Urine Blood Moderate (NEG) Urine Nitrite Negative (NEG) Urine Bilirubin Negative (NEG) Urine Urobilinogen Dipstick 0.2 mg/dL (0.2 mg/dL) Urine Leukocyte Esterase Negative (NEG) Urine RBC Rare /HPF (0-2) Urine WBC 0 /HPF (0-4) Urine Bacteria 0 /HPF (0-FEW) Urine Random Sodium 39 mmol/L (Not Estab.) Test 05/25/19 00:01 05/25/19 05:52 Glucose (Fingerstick) 260 mg/dL (70-99) 216 mg/dL (70-99) Laboratory Tests Test 05/24/19 10:15 05/24/19 11:32 05/24/19 17:30 05/25/19 00:01 Urine Collection Type Unknown Urine Color Yellow Urine Clarity Turbid Urine pH 5.0 Urine Specific [employer] [place] 1.015 Urine Protein 30 mg/dL (NEG-TRACE) Urine Glucose (UA) 100 mg/dL (NEG) Urine Ketones (Stick) Negative mg/dL (NEG) Urine Blood Moderate (NEG) Urine Nitrite Negative (NEG) Urine Bilirubin Negative (NEG) Urine Urobilinogen Dipstick 0.2 mg/dL (0.2 mg/dL) Urine Leukocyte Esterase Negative (NEG) Urine RBC Rare /HPF (0-2) Urine WBC 0 /HPF (0-4) Urine Bacteria 0 /HPF (0-FEW) Urine Random Sodium 39 mmol/L (Not Estab.) Glucose (Fingerstick) 243 mg/dL (70-99) 255 mg/dL (70-99) 260 mg/dL (70-99) Test 05/25/19 05:52 Glucose (Fingerstick) 216 mg/dL (70-99) Problem List Problems Medical Problems: (1) Perforated intestine, nontraumatic Status: Acute Assessment/Plan supportive care continue drains FABI MASSEY APRN May 25, 2019 08:35
[2019-05-25] MEDS: VENLAFAXINE XR 37.5 MG CAP.ER.24H. PO SCH (09:00)
[2019-05-25] MEDS: PRIMIDONE 50 MG TABLET PO SCH ×2 (09:00→21:06)
[2019-05-25 09:04] LABS: CALCIUM 8.3 mg/dL (8.5-10.1); CREATININE 1.8 mg/dL (0.7-1.3); GFR 37.2; PHOSPHORUS 3.3 mg/dL (2.6-4.7); POTASSIUM 3.7 mmol/L (3.5-5.1)
[2019-05-25] MEDS: TPN PER PHARMACY MC PRN (09:33)
--- NOTE | 2019-05-25 09:34 | NUR ---
Pharmacy TPN Dosing Note S: MORIAH BARRAGAN is a 73 year old M Currently receiving Central Continuous TPN started 05/15/19 B:Pertinent PMH: Perforated duodenal ulcer Height: 5 feet, 10 inches Weight: 90.114054 kg Current diet: NPO LABS: Sodium: 142 Potassium: 3.7 Chloride: 107 Calcium: 8.3 Corrected Calcium: 9.98 Magnesium: 2.0 CO2: 23 SCr: 1.8 Glucose: 183 Albumin: 1.9 AST: 28 ALT: 24 TPN FORMULA: TPN TYPE: Central Continuous AMINO ACIDS: 70 gm DEXTROSE: 225 gm LIPIDS: 30 gm SODIUM CHLORIDE: 40 mEq SODIUM ACETATE: 40 mEq SODIUM PHOSPHATE: mmol POTASSIUM CHLORIDE: - mEq POTASSIUM ACETATE: 25 mEq POTASSIUM PHOSPHATE: 10 mmol MAGNESIUM: 10 mEq CALCIUM: 5 mEq INSULIN: 30 units MULTIPLE VITAMIN: 10 ml TRACE ELEMENTS: 1 ml(s) TPN PLAN: Potassium and phos declining, will increase KPhos to 10mmol and add 25meq KAce; labs in the am R: Continue TPN as written above. Will monitor electrolytes, glucose, and tolerance to TPN. DEBBY ALLEN [facility], 05/25/19 0529
[2019-05-25] MEDS: PANTOPRAZOLE IV PUSH 40 MG VIAL. IVP SCH (10:17)
[2019-05-25] MEDS: levETIRAcetam 250 MG in IV DEXTROSE 5% 100ML 100 ML IV SCH ×2 (10:17→21:06)
[2019-05-25] MEDS: BACITRACIN TOPICAL OINT PACKET. TP SCH (10:18)
[2019-05-25] MEDS: HEPARIN for SUB-Q USE 5,000 UNIT/ML VIAL. SQ SCH ×2 (10:20→22:06)
--- NOTE | 2019-05-25 12:15 | PDOC ---
PULMONARY PROGRESS NOTES Subjective minimally responsive nursing reports he was awake and interacting this am currently on room air Vitals Vital Signs Date Time Temp Pulse Resp B/P (MAP) Pulse Ox O2 Delivery O2 Flow Rate FiO2 05/25/19 12:00 98.2 91 21 125/61 (82) 95 Room Air 98.2 05/25/19 04:00 3.0 Comments UNABLE TO ROS General: Lethargic Lungs: Crackles Cardiovascular: S1, S2 Abdomen: Soft, Other (MACKENZIE drain in L quad ) Extremities: No Edema, Other Skin: Warm, Dry Labs Laboratory Tests Test 05/23/19 12:36 05/23/19 17:45 05/24/19 00:06 05/24/19 06:00 Glucose (Fingerstick) 320 mg/dL (70-99) 278 mg/dL (70-99) 294 mg/dL (70-99) Sodium Level 142 mmol/L (136-145) Potassium Level 4.4 mmol/L (3.5-5.1) Chloride Level 108 mmol/L (98-107) Carbon Dioxide Level 22 mmol/L (21-32) Anion Gap 12 (6-14) Blood Urea Nitrogen 63 mg/dL (8-26) Creatinine 2.5 mg/dL (0.7-1.3) Estimated GFR (Cockcroft-Gault) 25.4 Glucose Level 273 mg/dL (70-99) Calcium Level 8.4 mg/dL (8.5-10.1) Phosphorus Level 4.0 mg/dL (2.6-4.7) Magnesium Level 2.1 mg/dL (1.8-2.4) Creatine Kinase 141 U/L (39-308) Test 05/24/19 06:07 05/24/19 10:15 05/24/19 11:32 05/24/19 17:30 Glucose (Fingerstick) 256 mg/dL (70-99) 243 mg/dL (70-99) 255 mg/dL (70-99) Urine Collection Type Unknown Urine Color Yellow Urine Clarity Turbid Urine pH 5.0 Urine Specific [place] 1.015 Urine Protein 30 mg/dL (NEG-TRACE) Urine Glucose (UA) 100 mg/dL (NEG) Urine Ketones (Stick) Negative mg/dL (NEG) Urine Blood Moderate (NEG) Urine Nitrite Negative (NEG) Urine Bilirubin Negative (NEG) Urine Urobilinogen Dipstick 0.2 mg/dL (0.2 mg/dL) Urine Leukocyte Esterase Negative (NEG) Urine RBC Rare /HPF (0-2) Urine WBC 0 /HPF (0-4) Urine Bacteria 0 /HPF (0-FEW) Urine Random Sodium 39 mmol/L (Not Estab.) Test 05/25/19 00:01 05/25/19 05:52 05/25/19 08:20 05/25/19 11:49 Glucose (Fingerstick) 260 mg/dL (70-99) 216 mg/dL (70-99) 255 mg/dL (70-99) Sodium Level 142 mmol/L (136-145) Potassium Level 3.7 mmol/L (3.5-5.1) Chloride Level 107 mmol/L (98-107) Carbon Dioxide Level 23 mmol/L (21-32) Anion Gap 12 (6-14) Blood Urea Nitrogen 53 mg/dL (8-26) Creatinine 1.8 mg/dL (0.7-1.3) Estimated GFR (Cockcroft-Gault) 37.2 Glucose Level 183 mg/dL (70-99) Calcium Level 8.3 mg/dL (8.5-10.1) Phosphorus Level 3.3 mg/dL (2.6-4.7) Magnesium Level 2.0 mg/dL (1.8-2.4) Laboratory Tests Test 05/24/19 17:30 05/25/19 00:01 05/25/19 05:52 05/25/19 08:20 Glucose (Fingerstick) 255 mg/dL (70-99) 260 mg/dL (70-99) 216 mg/dL (70-99) Sodium Level 142 mmol/L (136-145) Potassium Level 3.7 mmol/L (3.5-5.1) Chloride Level 107 mmol/L (98-107) Carbon Dioxide Level 23 mmol/L (21-32) Anion Gap 12 (6-14) Blood Urea Nitrogen 53 mg/dL (8-26) Creatinine 1.8 mg/dL (0.7-1.3) Estimated GFR (Cockcroft-Gault) 37.2 Glucose Level 183 mg/dL (70-99) Calcium Level 8.3 mg/dL (8.5-10.1) Phosphorus Level 3.3 mg/dL (2.6-4.7) Magnesium Level 2.0 mg/dL (1.8-2.4) Test 05/25/19 11:49 Glucose (Fingerstick) 255 mg/dL (70-99) Medications Active Scripts Medications Dose Route/Sig Max Daily Dose Days Date Category Venlafaxine Hcl 75 Mg Tablet Unknown Dose PO DAILY 02/18/19 Reported Simvastatin 10 Mg Tablet 10 Mg PO DAILY 02/18/19 Reported Metformin Hcl 1,000 Mg Tablet 1,000 Mg PO BIDWMEALS 02/18/19 Reported Meloxicam 15 Mg Tablet Unknown Dose PO DAILY 02/18/19 Reported Lisinopril 10 Mg Tablet Unknown Dose PO DAILY 02/18/19 Reported Humalog (Insulin Lispro) 100 Unit/1 Ml Cartridge 100 Unit SQ 02/18/19 Reported Sinemet 25-100 Mg Tablet (Carbidopa/Levodopa) 1 Each Tablet 1 Tab PO TID 02/18/19 Reported Impression . 1. EXPECTED RESP FAILURE status post repair of a perforated duodenal ulcer. 2. Status post laparoscopy with open laparotomy for closure of a duodenal ulcer with Dawood patch. 05/08 3. Acute exacerbation of chronic obstructive pulmonary disease, resolving. 4. Tobacco dependence. 5. Hypertension. 6. Recent right shoulder repair. 7. anemia/ acute blood loss, 8. Fever. 9. Possible sepsis present upon admission. 10. CT-guided abdominal drain placement as described. 05/15 11. delrium 12. hypotension --improved Plan . 1. Follow recommendations from surgery 2. currently of ABX, ID is following 3. cont. TPN and IVF 4. Continue supplemental oxygen and bronchodilators 5. pulmonary hygiene 6. supportive care 7. transfuse if HGB less than 7 D/W at bedside TG RAZO MD May 25, 2019 12:15
[2019-05-25 12:26] LABS: RED BLOOD COUNT 2.01 x10^6/uL (4.30-5.70); RED CELL DISTRIBUTION WIDTH 14.9 % (11.5-14.5); WHITE BLOOD COUNT 10.6 x10^3/uL (4.0-11.0)
[2019-05-25 12:33] LABS: HEMATOCRIT 19.1 % (39.0-53.0); HEMOGLOBIN 6.5 g/dL (13.0-17.5)
--- NOTE | 2019-05-25 13:13 | PDOC ---
[facility] PROGRESS NOTE Chief Complaint Chief Complaint Perforated Duodenal Ulcer, Severe Sepsis. History of Present Illness History of Present Illness The patient is a 73-year-old male with acute onset of right-sided mid abdominal pain, nausea, vomiting, started one hour prior to arrival. He had several episodes of vomiting since the onset. The patient was evaluated in the Emergency Room, underwent imaging studies revealing some free air in the abdomen. He subsequently underwent exploratory laparotomy by Dr. Hickman, revealing evidence of a perforated duodenal ulcer. He underwent diagnostic laparoscopy with open laparotomy and closure of a duodenal ulcer with a Dawood patch. 05/23: Patient was seen and examined in ICU, patient is asleep and non- arousable, Discussed with RN, who states that the patient was given pain medication last night for abdominal pain and is tender to palpation of the abdomen. Patient was noted to be shaking rapidly. Patient was running a low grade fever last night, however is not currently running a fever. 05/24: Patient was seen and examined in ICU, patient is sleeping soundly and not shaking today. DW . Wound dressing is noted to be clean/ dry and intact. P atient currently on a Patrick to BSD. TPN is currently running. Patient has 2 MACKENZIE drains in RLQ. 05/25: Patient was seen and examined in ICU, patient is sleeping soundly and not shaking today. DW . Wound dressing is noted to be clean/ dry and intact. Jay herrera currently on a Patrick to BSD. TPN is currently running. Patient has 2 MACKENZIE drains in RLQ. patient's Hbg has declined from 8.1 to 7.2, will transfuse 1 unit of blood today. Vitals/I&O Vitals/I&O: Vital Signs Date Time Temp Pulse Resp B/P (MAP) Pulse Ox O2 Delivery O2 Flow Rate FiO2 05/25/19 12:30 95 Room Air 05/25/19 12:00 98.2 91 21 125/61 (82) 98.2 05/25/19 04:00 3.0 I & O 05/24/19 05/24/19 05/25/19 15:00 23:00 07:00 Intake Total 102.5 ml 3489.5 ml Output Total 1085 ml 870 ml 1235 ml Balance -982.5 ml 2619.5 ml -1235 ml Physical Exam Physical Exam: GENERAL: Propped up in bed, encephalopathic, mittens in place HEENT: Pupils equally round. Oropharynx very dry, NGT NECK: Supple. LUNGS: Clear to auscultation. HEART: S1, S2 regular. ABDOMEN: Obese, soft, no guarding or grimacing to palpation. MACKENZIE drain. incision healing well, hypoactive bowel sounds : Indwelling Patrick in place EXTREMITIES: No gross edema or cyanosis.. Right shoulder incision healing well SKIN: Warm to touch. No signs of rash. NEUROLOGIC: Arouses to gentle stimuli, no follow commands or answers questions LUE - PICC clean General: Alert, Cooperative Heart: Regular rate (SR), Other (distant heart sounds) Lungs: Crackles Abdomen: Soft, Other (less drainage from drains ) Extremities: No clubbing, No cyanosis, No edema, Normal pulses, No tenderness/swelling Skin: No rashes, No breakdown, No significant lesion, Other (abdominal surgical incision) Labs Labs: Laboratory Tests Test 05/24/19 17:30 05/25/19 00:01 05/25/19 05:52 05/25/19 08:20 Glucose (Fingerstick) 255 mg/dL (70-99) 260 mg/dL (70-99) 216 mg/dL (70-99) Sodium Level 142 mmol/L (136-145) Potassium Level 3.7 mmol/L (3.5-5.1) Chloride Level 107 mmol/L (98-107) Carbon Dioxide Level 23 mmol/L (21-32) Anion Gap 12 (6-14) Blood Urea Nitrogen 53 mg/dL (8-26) Creatinine 1.8 mg/dL (0.7-1.3) Estimated GFR (Cockcroft-Gault) 37.2 Glucose Level 183 mg/dL (70-99) Calcium Level 8.3 mg/dL (8.5-10.1) Phosphorus Level 3.3 mg/dL (2.6-4.7) Magnesium Level 2.0 mg/dL (1.8-2.4) Test 05/25/19 11:49 05/25/19 12:05 Glucose (Fingerstick) 255 mg/dL (70-99) White Blood Count 10.6 x10^3/uL (4.0-11.0) Red Blood Count 2.01 x10^6/uL (4.30-5.70) Hemoglobin 6.5 g/dL (13.0-17.5) Hematocrit 19.1 % (39.0-53.0) Mean Corpuscular Volume 95 fL (79-100) Mean Corpuscular Hemoglobin 32 pg (25-35) Mean Corpuscular Hemoglobin Concent 34 g/dL (31-37) Red Cell Distribution Width 14.9 % (11.5-14.5) Platelet Count 272 x10^3/uL (140-400) Review of Systems Review of Systems: Patient was asleep Assessment and Plan Assessmemt and Plan Problems Medical Problems: (1) Perforated intestine, nontraumatic Status: Acute Assessment: Perforated intestine, nontraumatic Plan: 1. ICU monitoring 2. Transfuse 1 unit of blood 3. continue wound care 4. TPN 5. Trend labs 6. DVT prophylaxis 7. Full code Total time 33 min Comment Review of Relevant I have reviewed the following items adriano (where applicable) has been applied. Medications: Current Medications Medications (Trade) Dose Ordered Sig/Ventura Route PRN Reason Start Time Stop Time Status Last Admin Dose Admin Darbepoetin Jose (ARANESP for NON-DIALYSIS PTS) 60 mcg WEEKLYHS SQ 05/24/19 21:00 05/24/19 21:07 Sodium Acetate 40 meq/Potassium Phosphate 3.4 mmol/Magnesium Sulfate 10 meq/ Calcium Gluconate 5 meq/ Multivitamins 10 ml/Chromium/ Copper/Manganese/ Seleni/Zn 1 ml/ Insulin Human Regular 30 unit/ Total Parenteral Nutrition/Amino Acids/Dextrose/ Fat Emulsion Intravenous 2,400 ml @ 100 mls/hr TPN CONT IV 05/24/19 22:00 05/25/19 21:59 05/24/19 21:33 HEATHER WRIGHT III DO May 25, 2019 13:13
--- NOTE | 2019-05-25 16:23 | NUR ---
RN called Dr. Hickman to notify him of Hgb, color change in MACKENZIE drain (slightly more red). Order received to give second unit of PRBC, check coag's. See labs. VS's
[2019-05-25] MEDS: SIMVASTATIN 10 MG TABLET PO SCH (21:06)
[2019-05-25] MEDS: INSULIN GLARGINE SYRINGE. SQ SCH (21:11)
[2019-05-25 21:21] LABS: HEMATOCRIT 25.1 % (39.0-53.0); HEMOGLOBIN 8.5 g/dL (13.0-17.5); RED BLOOD COUNT 2.71 x10^6/uL (4.30-5.70); RED CELL DISTRIBUTION WIDTH 14.5 % (11.5-14.5); WHITE BLOOD COUNT 10.3 x10^3/uL (4.0-11.0)
[2019-05-25 21:31] LABS: PROTHROMBIN TIME PATIENT 13.9 SEC (11.7-14.0)
[2019-05-25] MEDS ORDERED: TOTAL PARENTERAL NUTRITION IV SCH ×11 (22:00)
[2019-05-25] MEDS ORDERED: DEXTROSE 70% IV SCH ×11 (22:00)
[2019-05-25] MEDS ORDERED: [UNRECOGNIZED DRUG - OTHER] IV SCH ×11 (22:00)
[2019-05-25] MEDS ORDERED: AMINO ACID IV SCH ×11 (22:00)
[2019-05-26] VITALS (13 sets, daily range): BP systolic 103–155; BP diastolic 49–75
[2019-05-26] MEDS: INSULIN LISPRO 300 UNITS/3 ML VIAL. SQ SCH ×3 (00:04→13:05)
[2019-05-26 06:06] LABS: ALBUMIN 1.7 g/dL (3.4-5.0); CALCIUM 8.4 mg/dL (8.5-10.1); CREATININE 1.7 mg/dL (0.7-1.3); GFR 39.7; PHOSPHORUS 3.7 mg/dL (2.6-4.7); POTASSIUM 3.8 mmol/L (3.5-5.1)
--- NOTE | 2019-05-26 08:01 | PDOC ---
Infectious Disease Note Subjective: Subjective Pt remains confused and restless says has hot and cold spells t max 99 + output MACKENZIE drain TPN s/p blood transfusion 05/25 no abdo pain Vital Signs: Vital Signs Vital Signs Date Time Temp Pulse Resp B/P (MAP) Pulse Ox O2 Delivery O2 Flow Rate FiO2 05/26/19 07:00 97 23 144/66 (92) 96 Room Air 05/26/19 04:00 99.0 99.0 Physical Exam: PHYSICAL EXAM GENERAL: Propped up in bed, encephalopathic, mittens in place HEENT: Pupils equally round. Oropharynx very dry, NGT NECK: Supple. LUNGS: Clear to auscultation. HEART: S1, S2 regular. ABDOMEN: Obese, soft, no guarding or grimacing to palpation. MACKENZIE drain. incision healing well, hypoactive bowel sounds : Indwelling Patrick in place EXTREMITIES: No gross edema or cyanosis.. Right shoulder incision healing well SKIN: Warm to touch. No signs of rash. NEUROLOGIC: Arouses to gentle stimuli, no follow commands or answers questions LUE - PICC clean Medications: Inpatient Meds: Current Medications Medications (Trade) Dose Ordered Sig/[place]ura Start Time Stop Time Status Last Admin Dose Admin Acetaminophen (Tylenol) 500 mg PRN Q6HRS PRN 05/13/19 08:30 Albumin Human 500 ml @ 250 mls/hr 1X ONCE 05/09/19 00:30 05/09/19 02:29 DC 05/09/19 00:10 250 MLS/HR Albuterol/ Ipratropium (Duoneb) 3 ml RTQID 05/10/19 08:00 05/25/19 20:05 3 ML Amino Acids/ Glycerin/ Electrolytes 1,000 ml @ 80 mls/hr [id number] 05/19/19 13:00 05/22/19 21:59 DC 05/22/19 06:13 80 MLS/HR Bacitracin (Bacitracin Zinc Oint Pkt) 1 pkt DAILY 05/18/19 10:15 05/25/19 10:18 1 PKT Bisacodyl (Dulcolax Supp) 10 mg PRN DAILY PRN 05/21/19 15:45 05/21/19 16:34 10 MG Budesonide (Pulmicort) 0.5 mg RTBID 05/10/19 08:00 05/25/19 20:05 0.5 MG Bupivacaine HCl (Sensorcaine Mpf 0.5%) 30 ml STK-MED ONCE 05/08/19 21:39 05/08/19 21:39 DC Bupivacaine HCl/ Epinephrine Bitart (Sensorcaine-Epi 0.25%-1:029248 Mpf) 30 ml 1X ONCE 05/08/19 20:00 05/08/19 20:01 DC 05/08/19 20:32 26 ML Carbidopa/Levodopa (Sinemet 25/100) 1 tab TID 05/12/19 14:00 05/12/19 13:40 DC Cefepime HCl (Maxipime) 2 gm Q8HRS 05/14/19 12:00 05/18/19 08:18 DC 05/18/19 06:25 2 GM Clonidine HCl (Catapres) 0.1 mg PRN Q1HR PRN 05/13/19 08:30 Daptomycin 570 mg/ Sodium Chloride 50 ml @ 100 mls/hr Q24H 05/14/19 11:30 05/20/19 08:07 DC 05/19/19 13:21 100 MLS/HR Darbepoetin Jose (ARANESP for NON-DIALYSIS PTS) 60 mcg WEEKLYHS 05/24/19 21:00 05/24/19 21:07 60 MCG Dexamethasone Sodium Phosphate (Decadron) 4 mg STK-MED ONCE 05/08/19 19:34 05/08/19 19:34 DC Dextrose (Dextrose 50%-Water Syringe) 12.5 gm PRN Q15MIN PRN 05/16/19 13:15 Dextrose/Sodium Chloride 1,000 ml @ 150 mls/hr Q6H40M 05/09/19 08:45 05/09/19 18:30 DC 05/09/19 12:28 150 MLS/HR Diphenhydramine HCl (Benadryl) 25 mg 1X ONCE 05/08/19 17:00 05/08/19 17:01 DC 05/08/19 16:51 25 MG Dobutamine HCl/ Dextrose 250 ml @ 15.75 mls/ hr CONT PRN 05/09/19 12:45 05/12/19 13:06 DC Ephedrine Sulfate (ePHEDrine PF IN SALINE SYRINGE) 50 mg STK-MED ONCE 05/08/19 20:36 05/08/19 20:36 DC Epinephrine HCl (Adrenalin) 1 mg STK-MED ONCE 05/08/19 21:39 05/08/19 21:39 DC Fentanyl Citrate (Fentanyl 2ml Vial) 50 mcg 1X ONCE 05/15/19 14:30 05/15/19 14:38 DC 05/15/19 14:30 50 MCG Fluconazole/ Sodium Chloride 100 ml @ 100 mls/hr Q24H 05/08/19 22:00 05/14/19 10:28 DC 05/13/19 21:14 100 MLS/HR Flumazenil (Romazicon) 0.5 mg STK-MED ONCE 05/15/19 13:47 05/15/19 13:47 DC Gabapentin (Neurontin) 300 mg PRN QHS PRN 05/12/19 17:45 05/12/19 20:53 300 MG Glycopyrrolate (Robinul) 1 mg STK-MED ONCE 05/08/19 21:27 05/08/19 21:27 DC Haloperidol Lactate (Haldol Inj) 2.5 mg PRN Q6HRS PRN 05/19/19 08:00 05/20/19 23:24 2.5 MG Heparin Sodium (Porcine) (Heparin Sodium) 5,000 unit BID 05/11/19 10:00 05/25/19 22:06 5,000 UNIT Hydralazine HCl (Apresoline Inj) 10 mg PRN Q4HRS PRN 05/11/19 11:45 Hydromorphone HCl (Dilaudid) 0.5 mg PRN Q2HR PRN 05/19/19 08:00 05/22/19 21:33 0.5 MG Info (CONTRAST GIVEN -- Rx MONITORING) 1 each PRN DAILY PRN 05/14/19 09:00 05/16/19 08:59 DC Info (Tpn Per Pharmacy) 1 each PRN DAILY PRN 05/22/19 09:30 05/25/19 09:33 1 EACH Insulin Glargine (Lantus Syringe) 10 unit ONCE STAT 05/18/19 07:47 05/18/19 07:51 DC 05/18/19 07:47 10 UNIT Insulin Human Lispro (HumaLOG VIAL for OP,RR ONLY) 0-10 units PRN Q1HR PRN 05/08/19 19:45 05/08/19 23:59 DC Insulin Human Lispro (HumaLOG) 0-9 UNITS Q6HRS 05/16/19 18:00 05/26/19 05:40 5 UNITS Insulin Human Regular (HumuLIN R VIAL) 8 unit 1X ONCE 05/16/19 13:15 05/16/19 13:22 DC 05/16/19 13:36 8 UNIT Insulin Human Regular 150 unit/ Sodium Chloride 151.5 ml @ 0 mls/hr CONT PRN 05/08/19 23:00 05/12/19 13:06 DC 05/08/19 23:03 5 MLS/HR Iohexol (Omnipaque 240 Mg/ml) 30 ml 1X ONCE 05/14/19 08:45 05/14/19 08:48 DC 05/14/19 08:45 30 ML Iohexol (Omnipaque 300 Mg/ml) 60 ml 1X ONCE 05/14/19 08:45 05/14/19 08:48 DC 05/14/19 08:45 60 ML Iohexol (Omnipaque 350 Mg/ml) 90 ml 1X ONCE 05/08/19 17:30 05/08/19 17:31 DC 05/08/19 17:45 90 ML Ketamine HCl (Ketamine) 50 mg STK-MED ONCE 05/08/19 20:12 05/08/19 20:12 DC Labetalol HCl (Normodyne Iv Push) 10 mg PRN Q2HR PRN 05/17/19 08:30 Lacosamide 100 mg/ Dextrose 60 ml @ 120 mls/hr BID 05/18/19 15:00 05/23/19 14:43 DC 05/23/19 08:22 120 MLS/HR Lactobacillus Rhamnosus (Culturelle) 1 cap BID 05/12/19 21:00 05/23/19 13:02 DC 05/23/19 08:49 1 CAP Levetiracetam 250 mg/Dextrose 102.5 ml @ 420 mls/hr Q12HR 05/23/19 15:00 05/25/19 21:06 420 MLS/HR Lidocaine HCl (Buffered Lidocaine 1%) 4 ml 1X ONCE 05/15/19 14:30 05/15/19 14:38 DC 05/15/19 14:30 4 ML Lidocaine HCl (Lidocaine Pf 2% Vial) 5 ml STK-MED ONCE 05/08/19 19:34 05/08/19 19:34 DC Lisinopril (Prinivil) 10 mg DAILY 05/13/19 09:00 05/16/19 10:07 DC 05/14/19 09:14 10 MG Lorazepam (Ativan Inj) 1 mg PRN Q4HRS PRN 05/19/19 08:00 05/19/19 16:19 DC 05/19/19 12:38 1 MG Magnesium Sulfate 50 ml @ 25 mls/hr PRN DAILY PRN 05/25/19 08:30 Meropenem 500 mg/ Sodium Chloride 50 ml @ 100 mls/hr Q8HRS 05/21/19 14:00 05/22/19 08:24 DC 05/22/19 06:13 100 MLS/HR Metoclopramide HCl (Reglan Vial) 10 mg 1X ONCE 05/08/19 17:00 05/08/19 17:01 DC 05/08/19 16:51 10 MG Metronidazole 100 ml @ 100 mls/hr Q8HRS 05/14/19 14:00 05/18/19 08:18 DC 05/18/19 06:28 100 MLS/HR Micafungin Sodium 100 mg/Dextrose 100 ml @ 100 mls/hr Q24H 05/14/19 11:00 05/20/19 08:07 DC 05/19/19 11:32 100 MLS/HR Midazolam HCl (Versed) 1 mg 1X ONCE 05/15/19 14:30 05/15/19 14:38 DC 05/15/19 14:30 1 MG Multi-Ingredient Ointment (Analgesic [place]) 1 jazlyn PRN QID PRN 05/11/19 11:30 Naloxone HCl (Narcan) 0.4 mg STK-MED ONCE 05/15/19 13:47 05/15/19 13:47 DC Neostigmine Methylsulfate (Neostigmine Methylsulfate) 5 mg STK-MED ONCE 05/08/19 21:27 05/08/19 21:27 DC Norepinephrine Bitartrate 250 ml @ 17.961 mls/ hr CONT PRN 05/22/19 19:00 05/23/19 08:51 8.424 MLS/HR Ondansetron HCl (Zofran) 4 mg PRN Q6HRS PRN 05/13/19 08:30 UNV Pantoprazole Sodium (PROTONIX VIAL for IV PUSH) 40 mg DAILYAC 05/17/19 13:00 05/25/19 10:17 40 MG Pantoprazole Sodium (Protonix) 40 mg DAILYAC 05/12/19 09:00 05/17/19 11:29 DC 05/14/19 06:04 40 MG Phenol (Chloraseptic) 1 spray PRN Q2HR PRN 05/11/19 11:30 05/11/19 13:12 1 SPRAY Phenylephrine HCl (PHENYLEPHRINE in 0.9% NACL PF) 1 mg STK-MED ONCE 05/08/19 20:33 05/08/19 20:33 DC Piperacillin Sod/ Tazobactam Sod 3.375 gm/Sodium Chloride 50 ml @ 100 mls/hr Q6HRS 05/09/19 00:00 05/14/19 10:28 DC 05/14/19 05:49 100 MLS/HR Potassium Phosphate 13.6 mmol/Magnesium Sulfate 10 meq/ Calcium Gluconate 10 meq/ Multivitamins 10 ml/Chromium/ Copper/Manganese/ Seleni/Zn 1 ml/ Total Parenteral Nutrition/Amino Acids/Dextrose/ Fat Emulsion Intravenous 1,512 ml @ 63 mls/hr TPN CONT 05/18/19 22:00 05/19/19 13:00 DC 05/18/19 22:35 63 MLS/HR Primidone (Mysoline) 25 mg BID 05/12/19 14:30 05/25/19 21:06 25 MG Prochlorperazine Edisylate (Compazine) 5 mg PACU PRN PRN 05/08/19 19:45 05/08/19 23:59 DC Propofol 20 ml @ As Directed STK-MED ONCE 05/08/19 19:34 05/08/19 19:34 DC Ringer's Solution 1,000 ml @ 75 mls/hr [id number] 05/24/19 09:45 05/24/19 23:04 DC 05/24/19 10:19 75 MLS/HR Rocuronium [place] (Zemuron) 50 mg STK-MED ONCE 05/08/19 19:34 05/08/19 19:34 DC Sevoflurane (Ultane) 60 ml STK-MED ONCE 05/08/19 21:44 05/08/19 21:44 DC Simvastatin (Zocor) 10 mg QHS 05/12/19 21:00 05/25/19 21:06 10 MG Sodium Bicarbonate 75 meq/Sterile Water 575 ml @ 125 mls/hr Q4H36M ONCE 05/23/19 08:30 05/23/19 13:05 DC 05/23/19 08:42 125 MLS/HR Sodium Acetate 40 meq/Potassium Acetate 25 meq/ Potassium Phosphate 10 mmol/ Magnesium Sulfate 10 meq/Calcium Gluconate 5 meq/ Multivitamins 10 ml/Chromium/ Copper/Manganese/ Seleni/Zn 1 ml/ Insulin Human Regular 30 unit/ Total Parenteral Nutrition/Amino Acids/Dextrose/ Fat Emulsion Intravenous 2,400 ml @ 100 mls/hr TPN CONT 05/25/19 22:00 05/26/19 21:59 05/25/19 21:34 100 MLS/HR Sodium Acetate 40 meq/Potassium Phosphate 3.4 mmol/Magnesium Sulfate 10 meq/ Calcium Gluconate 5 meq/ Multivitamins 10 ml/Chromium/ Copper/Manganese/ Seleni/Zn 1 ml/ Insulin Human Regular 10 unit/ Total Parenteral Nutrition/Amino Acids/Dextrose/ Fat Emulsion Intravenous 2,400 ml @ 100 mls/hr TPN CONT 05/23/19 22:00 05/24/19 21:59 DC 05/23/19 21:02 100 MLS/HR Sodium Acetate 40 meq/Potassium Phosphate 3.4 mmol/Magnesium Sulfate 10 meq/ Calcium Gluconate 5 meq/ Multivitamins 10 ml/Chromium/ Copper/Manganese/ Seleni/Zn 1 ml/ Insulin Human Regular 30 unit/ Total Parenteral Nutrition/Amino Acids/Dextrose/ Fat Emulsion Intravenous 2,400 ml @ 100 mls/hr TPN CONT 05/24/19 22:00 05/25/19 21:59 DC 05/24/19 21:33 100 MLS/HR Sodium Chloride 1,000 ml @ 1,000 mls/hr 1X ONCE 05/23/19 08:00 05/23/19 08:59 DC 05/23/19 08:11 1,000 MLS/HR Sodium Chloride 40 meq/Potassium Phosphate 13.6 mmol/Magnesium Sulfate 10 meq/ Calcium Gluconate 5 meq/ Multivitamins 10 ml/Chromium/ Copper/Manganese/ Seleni/Zn 1 ml/ Total Parenteral Nutrition/Amino Acids/Dextrose/ Fat Emulsion Intravenous 1,800 ml @ 75 mls/hr TPN CONT 05/22/19 22:00 05/23/19 21:59 DC 05/22/19 21:40 75 MLS/HR Sodium Chloride 60 meq/Potassium Chloride 30 meq/ Potassium Phosphate 13.6 mmol/Magnesium Sulfate 10 meq/ Calcium Gluconate 10 meq/ Multivitamins 10 ml/Chromium/ Copper/Manganese/ Seleni/Zn 1 ml/ Total Parenteral Nutrition/Amino Acids/Dextrose/ Fat Emulsion Intravenous 1,512 ml @ 63 mls/hr TPN CONT 05/17/19 22:00 05/18/19 21:59 DC 05/17/19 23:13 63 MLS/HR Sodium Chloride 90 meq/Potassium Chloride 50 meq/ Potassium Phosphate 13.6 mmol/Magnesium Sulfate 10 meq/ Calcium Gluconate 10 meq/ Multivitamins 10 ml/Chromium/ Copper/Manganese/ Seleni/Zn 1 ml/ Total Parenteral Nutrition/Amino Acids/Dextrose/ Fat Emulsion Intravenous 1,512 ml @ 63 mls/hr TPN CONT 05/16/19 22:00 05/17/19 21:59 DC 05/16/19 21:56 63 MLS/HR Succinylcholine Chloride (Anectine) 200 mg STK-MED ONCE 05/08/19 19:34 05/08/19 19:34 DC Tramadol HCl (Ultram) 50 mg PRN Q6HRS PRN 05/13/19 08:30 05/19/19 16:19 DC 05/14/19 04:27 50 MG Venlafaxine HCl (Effexor Xr) 37.5 mg BID 05/13/19 09:00 05/13/19 08:33 DC Venlafaxine HCl (Effexor) 75 mg DAILY 05/12/19 13:30 05/12/19 14:20 DC 05/12/19 13:34 75 MG Labs: Lab Laboratory Tests Test 05/25/19 08:20 05/25/19 11:49 05/25/19 12:05 05/25/19 16:57 Sodium Level 142 mmol/L (136-145) Potassium Level 3.7 mmol/L (3.5-5.1) Chloride Level 107 mmol/L (98-107) Carbon Dioxide Level 23 mmol/L (21-32) Anion Gap 12 (6-14) Blood Urea Nitrogen 53 mg/dL (8-26) Creatinine 1.8 mg/dL (0.7-1.3) Estimated GFR (Cockcroft-Gault) 37.2 Glucose Level 183 mg/dL (70-99) Calcium Level 8.3 mg/dL (8.5-10.1) Phosphorus Level 3.3 mg/dL (2.6-4.7) Magnesium Level 2.0 mg/dL (1.8-2.4) Glucose (Fingerstick) 255 mg/dL (70-99) 231 mg/dL (70-99) White Blood Count 10.6 x10^3/uL (4.0-11.0) Red Blood Count 2.01 x10^6/uL (4.30-5.70) Hemoglobin 6.5 g/dL (13.0-17.5) Hematocrit 19.1 % (39.0-53.0) Mean Corpuscular Volume 95 fL (79-100) Mean Corpuscular Hemoglobin 32 pg (25-35) Mean Corpuscular Hemoglobin Concent 34 g/dL (31-37) Red Cell Distribution Width 14.9 % (11.5-14.5) Platelet Count 272 x10^3/uL (140-400) Test 05/25/19 21:00 05/25/19 21:03 05/26/19 00:01 05/26/19 05:30 White Blood Count 10.3 x10^3/uL (4.0-11.0) Red Blood Count 2.71 x10^6/uL (4.30-5.70) Hemoglobin 8.5 g/dL (13.0-17.5) 8.3 g/dL (13.0-17.5) Hematocrit 25.1 % (39.0-53.0) Mean Corpuscular Volume 92 fL (79-100) Mean Corpuscular Hemoglobin 32 pg (25-35) Mean Corpuscular Hemoglobin Concent 34 g/dL (31-37) Red Cell Distribution Width 14.5 % (11.5-14.5) Platelet Count 263 x10^3/uL (140-400) Prothrombin Time 13.9 SEC (11.7-14.0) Prothromb Time International Ratio 1.1 (0.8-1.1) Glucose (Fingerstick) 200 mg/dL (70-99) 265 mg/dL (70-99) Sodium Level 140 mmol/L (136-145) Potassium Level 3.8 mmol/L (3.5-5.1) Chloride Level 105 mmol/L (98-107) Carbon Dioxide Level 24 mmol/L (21-32) Anion Gap 11 (6-14) Blood Urea Nitrogen 41 mg/dL (8-26) Creatinine 1.7 mg/dL (0.7-1.3) Estimated GFR (Cockcroft-Gault) 39.7 Glucose Level 220 mg/dL (70-99) Calcium Level 8.4 mg/dL (8.5-10.1) Phosphorus Level 3.7 mg/dL (2.6-4.7) Magnesium Level 2.0 mg/dL (1.8-2.4) Creatine Kinase 67 U/L (39-308) Albumin 1.7 g/dL (3.4-5.0) Test 05/26/19 05:36 Glucose (Fingerstick) 208 mg/dL (70-99) Objective: Assessment: Acute encephalopathy Perforated duodenal ulcer s/p repair, 05/08 no apparent cultures, repair failure -fluid collection s/p abdominal drain placed 05/15. cultures neg. (on abx prior) Fever - resolved Leukocytosis - resolved Abx allergy: Sulfa and cipro w/ rash Acute respiratory failure s/p Bronchoscopy with BAL, 05/09. mucous plugging GREGG Nonobstructing calculus of the right kidney. Recent right shoulder joint replacement, 05/06 at [facility] Plan: Plan of Care Off antibiotics was on merrem before Maintain aspiration precautions D/W at bedside D/w nursing TORSTEN BASURTO MD May 26, 2019 08:01
[2019-05-26] MEDS: IPRATRPIUM/ALBUTEROL 0.5/2.5MG 3 ML NEBU. NEB SCH ×2 (08:09→12:08)
[2019-05-26] MEDS: BUDESONIDE 0.5 MG/2 ML NEBU. NEB SCH (08:09)
[2019-05-26] MEDS: HEPARIN for SUB-Q USE 5,000 UNIT/ML VIAL. SQ SCH (09:00)
--- NOTE | 2019-05-26 09:01 | PDOC ---
PULMONARY PROGRESS NOTES Subjective OFF 02 NO RESP DISTRESS Vitals Vital Signs Date Time Temp Pulse Resp B/P (MAP) Pulse Ox O2 Delivery O2 Flow Rate FiO2 05/26/19 08:19 Room Air 05/26/19 08:09 97 05/26/19 08:00 99.5 81 21 155/75 (101) 99.5 ROS: No Chest Pain, No Increase Cough General: Alert Lungs: Crackles Cardiovascular: S1, S2 Abdomen: Soft, Other (MACKENZIE drain in L quad ) Neuro Exam: Alert Extremities: No Edema, Other Skin: Warm, Dry Labs Laboratory Tests Test 05/24/19 10:15 05/24/19 11:32 05/24/19 17:30 05/25/19 00:01 Urine Collection Type Unknown Urine Color Yellow Urine Clarity Turbid Urine pH 5.[address] 1.015 Urine Protein 30 mg/dL (NEG-TRACE) Urine Glucose (UA) 100 mg/dL (NEG) Urine Ketones (Stick) Negative mg/dL (NEG) Urine Blood Moderate (NEG) Urine Nitrite Negative (NEG) Urine Bilirubin Negative (NEG) Urine Urobilinogen Dipstick 0.2 mg/dL (0.2 mg/dL) Urine Leukocyte Esterase Negative (NEG) Urine RBC Rare /HPF (0-2) Urine WBC 0 /HPF (0-4) Urine Bacteria 0 /HPF (0-FEW) Urine Random Sodium 39 mmol/L (Not Estab.) Glucose (Fingerstick) 243 mg/dL (70-99) 255 mg/dL (70-99) 260 mg/dL (70-99) Test 05/25/19 05:52 05/25/19 08:20 05/25/19 11:49 05/25/19 12:05 Glucose (Fingerstick) 216 mg/dL (70-99) 255 mg/dL (70-99) Sodium Level 142 mmol/L (136-145) Potassium Level 3.7 mmol/L (3.5-5.1) Chloride Level 107 mmol/L (98-107) Carbon Dioxide Level 23 mmol/L (21-32) Anion Gap 12 (6-14) Blood Urea Nitrogen 53 mg/dL (8-26) Creatinine 1.8 mg/dL (0.7-1.3) Estimated GFR (Cockcroft-Gault) 37.2 Glucose Level 183 mg/dL (70-99) Calcium Level 8.3 mg/dL (8.5-10.1) Phosphorus Level 3.3 mg/dL (2.6-4.7) Magnesium Level 2.0 mg/dL (1.8-2.4) White Blood Count 10.6 x10^3/uL (4.0-11.0) Red Blood Count 2.01 x10^6/uL (4.30-5.70) Hemoglobin 6.5 g/dL (13.0-17.5) Hematocrit 19.1 % (39.0-53.0) Mean Corpuscular Volume 95 fL (79-100) Mean Corpuscular Hemoglobin 32 pg (25-35) Mean Corpuscular Hemoglobin Concent 34 g/dL (31-37) Red Cell Distribution Width 14.9 % (11.5-14.5) Platelet Count 272 x10^3/uL (140-400) Test 05/25/19 16:57 05/25/19 21:00 05/25/19 21:03 05/26/19 00:01 Glucose (Fingerstick) 231 mg/dL (70-99) 200 mg/dL (70-99) 265 mg/dL (70-99) White Blood Count 10.3 x10^3/uL (4.0-11.0) Red Blood Count 2.71 x10^6/uL (4.30-5.70) Hemoglobin 8.5 g/dL (13.0-17.5) Hematocrit 25.1 % (39.0-53.0) Mean Corpuscular Volume 92 fL (79-100) Mean Corpuscular Hemoglobin 32 pg (25-35) Mean Corpuscular Hemoglobin Concent 34 g/dL (31-37) Red Cell Distribution Width 14.5 % (11.5-14.5) Platelet Count 263 x10^3/uL (140-400) Prothrombin Time 13.9 SEC (11.7-14.0) Prothromb Time International Ratio 1.1 (0.8-1.1) Test 05/26/19 05:30 05/26/19 05:36 Hemoglobin 8.3 g/dL (13.0-17.5) Sodium Level 140 mmol/L (136-145) Potassium Level 3.8 mmol/L (3.5-5.1) Chloride Level 105 mmol/L (98-107) Carbon Dioxide Level 24 mmol/L (21-32) Anion Gap 11 (6-14) Blood Urea Nitrogen 41 mg/dL (8-26) Creatinine 1.7 mg/dL (0.7-1.3) Estimated GFR (Cockcroft-Gault) 39.7 Glucose Level 220 mg/dL (70-99) Calcium Level 8.4 mg/dL (8.5-10.1) Phosphorus Level 3.7 mg/dL (2.6-4.7) Magnesium Level 2.0 mg/dL (1.8-2.4) Creatine Kinase 67 U/L (39-308) Albumin 1.7 g/dL (3.4-5.0) Glucose (Fingerstick) 208 mg/dL (70-99) Laboratory Tests Test 05/25/19 11:49 05/25/19 12:05 05/25/19 16:57 05/25/19 21:00 Glucose (Fingerstick) 255 mg/dL (70-99) 231 mg/dL (70-99) White Blood Count 10.6 x10^3/uL (4.0-11.0) 10.3 x10^3/uL (4.0-11.0) Red Blood Count 2.01 x10^6/uL (4.30-5.70) 2.71 x10^6/uL (4.30-5.70) Hemoglobin 6.5 g/dL (13.0-17.5) 8.5 g/dL (13.0-17.5) Hematocrit 19.1 % (39.0-53.0) 25.1 % (39.0-53.0) Mean Corpuscular Volume 95 fL (79-100) 92 fL (79-100) Mean Corpuscular Hemoglobin 32 pg (25-35) 32 pg (25-35) Mean Corpuscular Hemoglobin Concent 34 g/dL (31-37) 34 g/dL (31-37) Red Cell Distribution Width 14.9 % (11.5-14.5) 14.5 % (11.5-14.5) Platelet Count 272 x10^3/uL (140-400) 263 x10^3/uL (140-400) Prothrombin Time 13.9 SEC (11.7-14.0) Prothromb Time International Ratio 1.1 (0.8-1.1) Test 05/25/19 21:03 05/26/19 00:01 05/26/19 05:30 05/26/19 05:36 Glucose (Fingerstick) 200 mg/dL (70-99) 265 mg/dL (70-99) 208 mg/dL (70-99) Hemoglobin 8.3 g/dL (13.0-17.5) Sodium Level 140 mmol/L (136-145) Potassium Level 3.8 mmol/L (3.5-5.1) Chloride Level 105 mmol/L (98-107) Carbon Dioxide Level 24 mmol/L (21-32) Anion Gap 11 (6-14) Blood Urea Nitrogen 41 mg/dL (8-26) Creatinine 1.7 mg/dL (0.7-1.3) Estimated GFR (Cockcroft-Gault) 39.7 Glucose Level 220 mg/dL (70-99) Calcium Level 8.4 mg/dL (8.5-10.1) Phosphorus Level 3.7 mg/dL (2.6-4.7) Magnesium Level 2.0 mg/dL (1.8-2.4) Creatine Kinase 67 U/L (39-308) Albumin 1.7 g/dL (3.4-5.0) Medications Active Scripts Medications Dose Route/Sig Max Daily Dose Days Date Category Venlafaxine Hcl 75 Mg Tablet Unknown Dose PO DAILY 02/18/19 Reported Simvastatin 10 Mg Tablet 10 Mg PO DAILY 02/18/19 Reported Metformin Hcl 1,000 Mg Tablet 1,000 Mg PO BIDWMEALS 02/18/19 Reported Meloxicam 15 Mg Tablet Unknown Dose PO DAILY 02/18/19 Reported Lisinopril 10 Mg Tablet Unknown Dose PO DAILY 02/18/19 Reported Humalog (Insulin Lispro) 100 Unit/1 Ml Cartridge 100 Unit SQ 02/18/19 Reported Sinemet 25-100 Mg Tablet (Carbidopa/Levodopa) 1 Each Tablet 1 Tab PO TID 02/18/19 Reported Impression . 1. EXPECTED RESP FAILURE status post repair of a perforated duodenal ulcer. 2. Status post laparoscopy with open laparotomy for closure of a duodenal ulcer with [place] patch. 05/08 3. Acute exacerbation of chronic obstructive pulmonary disease, resolving. 4. Tobacco dependence. 5. Hypertension. 6. Recent right shoulder repair. 7. anemia/ acute blood loss, 8. Fever. 9. Possible sepsis present upon admission. 10. CT-guided abdominal drain placement as described. 05/15 11. delrium 12. hypotension --improved Plan . OK TO TRANSFER TO [facility] 1. Follow recommendations from surgery 2. currently of ABX, ID is following 3. cont. TPN and IVF 4. Continue supplemental oxygen and bronchodilators 5. pulmonary hygiene 6. supportive care 7. transfuse if HGB less than 7 TG RAZO MD May 26, 2019 09:00
[2019-05-26] MEDS: VENLAFAXINE XR 37.5 MG CAP.ER.24H. PO SCH (10:07)
[2019-05-26] MEDS: levETIRAcetam 250 MG in IV DEXTROSE 5% 100ML 100 ML IV SCH (10:07)
[2019-05-26] MEDS: PRIMIDONE 50 MG TABLET PO SCH (10:07)
[2019-05-26] MEDS: PANTOPRAZOLE IV PUSH 40 MG VIAL. IVP SCH (10:07)
[2019-05-26] MEDS: BACITRACIN TOPICAL OINT PACKET. TP SCH (10:08)
--- NOTE | 2019-05-26 10:43 | PDOC ---
Renal-Progress Notes Subjective Notes Notes NO NEW COMPLAINTS History of Present Illness Hx of present illness STABLE Vitals Vitals Vital Signs Date Time Temp Pulse Resp B/P (MAP) Pulse Ox O2 Delivery O2 Flow Rate FiO2 05/26/19 09:00 88 19 131/58 (82) 95 Room Air 05/26/19 08:00 99.5 99.5 Weight Weight [ ] I.O. Intake and Output Intake and Output 05/26/19 07:00 Intake Total 3959.5 ml Output Total 3600 ml Balance 359.5 ml IV Total 2748.5 ml Blood Product 341 ml Blood Product IV Normal Saline Flush 870 ml Output Urine Total 2550 ml Drainage Total 1050 ml # Bowel Movements 1 Labs Labs Laboratory Tests Test 05/25/19 11:49 05/25/19 12:05 05/25/19 16:57 05/25/19 21:00 Glucose (Fingerstick) 255 mg/dL (70-99) 231 mg/dL (70-99) White Blood Count 10.6 x10^3/uL (4.0-11.0) 10.3 x10^3/uL (4.0-11.0) Red Blood Count 2.01 x10^6/uL (4.30-5.70) 2.71 x10^6/uL (4.30-5.70) Hemoglobin 6.5 g/dL (13.0-17.5) 8.5 g/dL (13.0-17.5) Hematocrit 19.1 % (39.0-53.0) 25.1 % (39.0-53.0) Mean Corpuscular Volume 95 fL (79-100) 92 fL (79-100) Mean Corpuscular Hemoglobin 32 pg (25-35) 32 pg (25-35) Mean Corpuscular Hemoglobin Concent 34 g/dL (31-37) 34 g/dL (31-37) Red Cell Distribution Width 14.9 % (11.5-14.5) 14.5 % (11.5-14.5) Platelet Count 272 x10^3/uL (140-400) 263 x10^3/uL (140-400) Prothrombin Time 13.9 SEC (11.7-14.0) Prothromb Time International Ratio 1.1 (0.8-1.1) Test 05/25/19 21:03 05/26/19 00:01 05/26/19 05:30 05/26/19 05:36 Glucose (Fingerstick) 200 mg/dL (70-99) 265 mg/dL (70-99) 208 mg/dL (70-99) Hemoglobin 8.3 g/dL (13.0-17.5) Sodium Level 140 mmol/L (136-145) Potassium Level 3.8 mmol/L (3.5-5.1) Chloride Level 105 mmol/L (98-107) Carbon Dioxide Level 24 mmol/L (21-32) Anion Gap 11 (6-14) Blood Urea Nitrogen 41 mg/dL (8-26) Creatinine 1.7 mg/dL (0.7-1.3) Estimated GFR (Cockcroft-Gault) 39.7 Glucose Level 220 mg/dL (70-99) Calcium Level 8.4 mg/dL (8.5-10.1) Phosphorus Level 3.7 mg/dL (2.6-4.7) Magnesium Level 2.0 mg/dL (1.8-2.4) Creatine Kinase 67 U/L (39-308) Albumin 1.7 g/dL (3.4-5.0) Micro Micro Microbiology 05/15/19 AFB Specimen Processing Tissue - Final, Resulted 05/15/19 Acid Fast Bacilli Culture, Resulted Pending 05/15/19 Gram Stain - Final, Resulted 05/15/19 Fungal Culture - Preliminary, Resulted 05/15/19 Fungal Culture Result 1 - Preliminary, Resulted Review of Systems Constitutional: yes: alert, oriented Ears/Nose/Throat: Yes: no symptom reported Eyes: Yes: no symptom reported Gastrointestional: Yes: abdominal pain Genitourinary: Yes: no symptom reported Musculoskeletal: Yes: no symptom reported Skin: Yes no symptom reported Psychiatric/Neurological: Yes: no symptom reported Endocrine: Yes: no symptom reported Physical Exam General Appearance: no apparent distress Skin: warm Respiratory: decreased breath sounds Abdomen: soft, tenderness Genitourinary: bladder flat Neurology: alert, oriented, follow commands Musculoskeletal: Osteoarthritis Assessment Assessment IMP GREGG-IMPROVED AND STABLE WITH CR OF 1.7 FROM PEAK OF 3.1 S/P REPAIR OF PERFORATED ULCER NON OBSTRUCTING RIGHT RENAL CALCULUS ENCEPHALOPATHY AECOPD PLAN CONT TPN-CHANGES MADE LABS IN AM WILL FOLLOW ANYI BOOTH MD May 26, 2019 10:43
--- NOTE | 2019-05-26 11:23 | PDOC ---
[facility] PROGRESS NOTE Chief Complaint Chief Complaint Postop perforated ulcer repair Biliary leak Severe Sepsis. History of Present Illness History of Present Illness The patient is a 73-year-old male with acute onset of right-sided mid abdominal pain, nausea, vomiting, started one hour prior to arrival. He had several episodes of vomiting since the onset. The patient was evaluated in the Emergency Room, underwent imaging studies revealing some free air in the abdomen. He subsequently underwent exploratory laparotomy by Dr. Hickman, revealing evidence of a perforated duodenal ulcer. He underwent diagnostic laparoscopy with open laparotomy and closure of a duodenal ulcer with a Dawood matthews atch. 05/23: Patient was seen and examined in ICU, patient is asleep and non- arousable, Discussed with RN, who states that the patient was given pain medication last night for abdominal pain and is tender to palpation of the abdomen. Patient was noted to be shaking rapidly. Patient was running a low grade fever last night, however is not currently running a fever. 05/24: Patient was seen and examined in ICU, patient is sleeping soundly and not shaking today. DW . Wound dressing is noted to be clean/ dry and intact. Patient currently on a Patrick to BSD. TPN is currently running. Patient has 2 MACKENZIE drains in RLQ. 05/25: Patient was seen and examined in ICU, patient is sleeping soundly and not shaking today. DW . Wound dressing is noted to be clean/ dry and intact. Patient currently on a Patrick to BSD. TPN is currently running. Patient has 2 MACKENZIE drains in RLQ. patient's Hbg has declined from 8.1 to 7.2, will transfuse 1 unit of blood today. [id number] Patient seen and examined in the ICU His is present Discussed with RN Chart reviewed Vitals/I&O Vitals/I&O: Vital Signs Date Time Temp Pulse Resp B/P (MAP) Pulse Ox O2 Delivery O2 Flow Rate FiO2 05/26/19 11:00 94 23 133/63 (86) 96 Room Air 05/26/19 08:00 99.5 99.5 I & O 05/25/19 05/25/19 05/26/19 15:00 23:00 07:00 Intake Total 1444 ml 1313.5 ml 1202 ml Output Total 1130 ml 1280 ml 1190 ml Balance 314 ml 33.5 ml 12 ml Physical Exam Physical Exam: GENERAL: Propped up in bed, encephalopathic, mittens in place HEENT: Pupils equally round. Oropharynx very dry, NGT NECK: Supple. LUNGS: Clear to auscultation. HEART: S1, S2 regular. ABDOMEN: Obese, soft, no guarding or grimacing to palpation. MACKENZIE drain. incision healing well, hypoactive bowel sounds : Indwelling Patrick in place EXTREMITIES: No gross edema or cyanosis.. Right shoulder incision healing well SKIN: Warm to touch. No signs of rash. NEUROLOGIC: Arouses to gentle stimuli, no follow commands or answers questions LUE - PICC clean General: Alert, Cooperative Heart: Regular rate (SR), Other (distant heart sounds) Lungs: Crackles Abdomen: Soft, Other (less drainage from drains ) Extremities: No clubbing, No cyanosis, No edema, Normal pulses, No tenderness/swelling Skin: No rashes, No breakdown, No significant lesion, Other (abdominal surgical incision) Labs Labs: Laboratory Tests Test 05/25/19 11:49 05/25/19 12:05 05/25/19 16:57 05/25/19 21:00 Glucose (Fingerstick) 255 mg/dL (70-99) 231 mg/dL (70-99) White Blood Count 10.6 x10^3/uL (4.0-11.0) 10.3 x10^3/uL (4.0-11.0) Red Blood Count 2.01 x10^6/uL (4.30-5.70) 2.71 x10^6/uL (4.30-5.70) Hemoglobin 6.5 g/dL (13.0-17.5) 8.5 g/dL (13.0-17.5) Hematocrit 19.1 % (39.0-53.0) 25.1 % (39.0-53.0) Mean Corpuscular Volume 95 fL (79-100) 92 fL (79-100) Mean Corpuscular Hemoglobin 32 pg (25-35) 32 pg (25-35) Mean Corpuscular Hemoglobin Concent 34 g/dL (31-37) 34 g/dL (31-37) Red Cell Distribution Width 14.9 % (11.5-14.5) 14.5 % (11.5-14.5) Platelet Count 272 x10^3/uL (140-400) 263 x10^3/uL (140-400) Prothrombin Time 13.9 SEC (11.7-14.0) Prothromb Time International Ratio 1.1 (0.8-1.1) Test 05/25/19 21:03 05/26/19 00:01 05/26/19 05:30 05/26/19 05:36 Glucose (Fingerstick) 200 mg/dL (70-99) 265 mg/dL (70-99) 208 mg/dL (70-99) Hemoglobin 8.3 g/dL (13.0-17.5) Sodium Level 140 mmol/L (136-145) Potassium Level 3.8 mmol/L (3.5-5.1) Chloride Level 105 mmol/L (98-107) Carbon Dioxide Level 24 mmol/L (21-32) Anion Gap 11 (6-14) Blood Urea Nitrogen 41 mg/dL (8-26) Creatinine 1.7 mg/dL (0.7-1.3) Estimated GFR (Cockcroft-Gault) 39.7 Glucose Level 220 mg/dL (70-99) Calcium Level 8.4 mg/dL (8.5-10.1) Phosphorus Level 3.7 mg/dL (2.6-4.7) Magnesium Level 2.0 mg/dL (1.8-2.4) Creatine Kinase 67 U/L (39-308) Albumin 1.7 g/dL (3.4-5.0) Review of Systems Review of Systems: Unable to obtain to confused Assessment and Plan Assessmemt and Plan Problems Medical Problems: (1) Perforated intestine, nontraumatic Status: Acute Assessment: Perforated intestine, nontraumatic Plan: 0. Monitor drains 1. ICU monitoring 2. Transfuse 1 unit of blood 3. continue wound care 4. TPN 5. Trend labs 6. DVT prophylaxis 7. Full code Discussed with his at length Total time 31 min Comment Review of Relevant I have reviewed the following items adriano (where applicable) has been applied. Medications: Current Medications Medications (Trade) Dose Ordered Sig/Ventura Route PRN Reason Start Time Stop Time Status Last Admin Dose Admin Sodium Acetate 40 meq/Potassium Acetate 25 meq/ Potassium Phosphate 10 mmol/ Magnesium Sulfate 10 meq/Calcium Gluconate 5 meq/ Multivitamins 10 ml/Chromium/ Copper/Manganese/ Seleni/Zn 1 ml/ Insulin Human Regular 30 unit/ Total Parenteral Nutrition/Amino Acids/Dextrose/ Fat Emulsion Intravenous 2,400 ml @ 100 mls/hr TPN CONT IV 05/25/19 22:00 05/26/19 21:59 05/25/19 21:34 HEATHER WRIGHT III DO May 26, 2019 11:23
--- NOTE | 2019-05-26 11:36 | SNU/HH DC ---
DISCHARGE ORDERS DISCHARGE INFORMATION: DISCHARGE DATE: May 21, 2019 FINAL DIAGNOSIS Problems Medical Problems: (1) Perforated intestine, nontraumatic Status: Acute CONDITION ON DISCHARGE: Stable CODE STATUS: Code Status: Full INTERMEDIATE: SNF STAY <30 DAYS: No HOSPICE: HOSPICE: No HOSPICE EVAL & TREAT: No LTAC: ADMIT TO LTAC: Yes POST DISCHARGE ORDERS: ACTIVITY ORDERS: Activity as tolerated DIET AFTER DISCHARGE: NPO CHECKS AFTER DISCHARGE: CHECKS AFTER DISCHARGE: Check blood press - daily, Check blood sugar, ac/hs TREATMENT/EQUIPMENT ORDERS: RESPIRATORY EQUIPMENT NEEDED: Oxygen Physical Therapy For: Evalulation/Treatment Occupational Therapy For: Evaluation/Treatment Speech Language Pathology For: Swallow Cognition DISCHARGE MEDICATIONS: Home Meds Discontinued Reported Medications Venlafaxine Hcl (VENLAFAXINE HCL ER) 75 Mg Cap.er.24h, 75 MG PO DAILY, CAP.SR 05/12/19 Simvastatin (SIMVASTATIN) 10 Mg Tablet, 10 MG PO DAILY for FOR CHOLESTEROL, #30 TAB 0 Refills 02/18/19 Metformin Hcl (METFORMIN HCL) 1,000 Mg Tablet, 1000 MG PO BIDWMEALS, TAB 02/18/19 Meloxicam (MELOXICAM) 15 Mg Tablet, PO DAILY, TAB 02/18/19 Lisinopril (LISINOPRIL) 10 Mg Tablet, PO DAILY for FOR HYPERTENSION, #30 TAB 0 Refills 02/18/19 Insulin Lispro (HUMALOG) 100 Unit/1 Ml Cartridge, 100 UNIT SQ, EACH 02/18/19 Carbidopa/Levodopa (SINEMET 25-100 MG TABLET) 1 Each Tablet, 1 TAB PO TID, TAB 02/18/19 HEATHER WRIGHT III, DO May 26, 2019 11:36
--- NOTE | 2019-05-26 11:42 | NUR ---
RN discussed possible transfer to LTAC today w/ Dr. Hickman-- okay with patient being transferred to [facility] today if patient's approves. Patient has been accepted at [facility]-- per Social Serv. Waiting to hear from patient's , Shelli regarding the matter. Order received to d/c MACKENZIE vincent #2. Will call IR.
--- NOTE | 2019-05-26 12:05 | PDOC ---
SURGICAL PROGRESS NOTE Subjective resting possible select tx today Vital Signs Vital Signs Date Time Temp Pulse Resp B/P (MAP) Pulse Ox O2 Delivery O2 Flow Rate FiO2 05/26/19 11:00 94 23 133/63 (86) 96 Room Air 05/26/19 08:00 99.5 99.5 I&O Intake and Output 05/26/19 07:00 Intake Total 3959.5 ml Output Total 3600 ml Balance 359.5 ml IV Total 2748.5 ml Blood Product 341 ml Blood Product IV Normal Saline Flush 870 ml Output Urine Total 2550 ml Drainage Total 1050 ml # Bowel Movements 1 General: Cooperative Abdomen: Soft, Other Labs Laboratory Tests Test 05/24/19 17:30 05/25/19 00:01 05/25/19 05:52 05/25/19 08:20 Glucose (Fingerstick) 255 mg/dL (70-99) 260 mg/dL (70-99) 216 mg/dL (70-99) Sodium Level 142 mmol/L (136-145) Potassium Level 3.7 mmol/L (3.5-5.1) Chloride Level 107 mmol/L (98-107) Carbon Dioxide Level 23 mmol/L (21-32) Anion Gap 12 (6-14) Blood Urea Nitrogen 53 mg/dL (8-26) Creatinine 1.8 mg/dL (0.7-1.3) Estimated GFR (Cockcroft-Gault) 37.2 Glucose Level 183 mg/dL (70-99) Calcium Level 8.3 mg/dL (8.5-10.1) Phosphorus Level 3.3 mg/dL (2.6-4.7) Magnesium Level 2.0 mg/dL (1.8-2.4) Test 05/25/19 11:49 05/25/19 12:05 05/25/19 16:57 05/25/19 21:00 Glucose (Fingerstick) 255 mg/dL (70-99) 231 mg/dL (70-99) White Blood Count 10.6 x10^3/uL (4.0-11.0) 10.3 x10^3/uL (4.0-11.0) Red Blood Count 2.01 x10^6/uL (4.30-5.70) 2.71 x10^6/uL (4.30-5.70) Hemoglobin 6.5 g/dL (13.0-17.5) 8.5 g/dL (13.0-17.5) Hematocrit 19.1 % (39.0-53.0) 25.1 % (39.0-53.0) Mean Corpuscular Volume 95 fL (79-100) 92 fL (79-100) Mean Corpuscular Hemoglobin 32 pg (25-35) 32 pg (25-35) Mean Corpuscular Hemoglobin Concent 34 g/dL (31-37) 34 g/dL (31-37) Red Cell Distribution Width 14.9 % (11.5-14.5) 14.5 % (11.5-14.5) Platelet Count 272 x10^3/uL (140-400) 263 x10^3/uL (140-400) Prothrombin Time 13.9 SEC (11.7-14.0) Prothromb Time International Ratio 1.1 (0.8-1.1) Test 05/25/19 21:03 05/26/19 00:01 05/26/19 05:30 05/26/19 05:36 Glucose (Fingerstick) 200 mg/dL (70-99) 265 mg/dL (70-99) 208 mg/dL (70-99) Hemoglobin 8.3 g/dL (13.0-17.5) Sodium Level 140 mmol/L (136-145) Potassium Level 3.8 mmol/L (3.5-5.1) Chloride Level 105 mmol/L (98-107) Carbon Dioxide Level 24 mmol/L (21-32) Anion Gap 11 (6-14) Blood Urea Nitrogen 41 mg/dL (8-26) Creatinine 1.7 mg/dL (0.7-1.3) Estimated GFR (Cockcroft-Gault) 39.7 Glucose Level 220 mg/dL (70-99) Calcium Level 8.4 mg/dL (8.5-10.1) Phosphorus Level 3.7 mg/dL (2.6-4.7) Magnesium Level 2.0 mg/dL (1.8-2.4) Creatine Kinase 67 U/L (39-308) Albumin 1.7 g/dL (3.4-5.0) Laboratory Tests Test 05/25/19 12:05 05/25/19 16:57 05/25/19 21:00 05/25/19 21:03 White Blood Count 10.6 x10^3/uL (4.0-11.0) 10.3 x10^3/uL (4.0-11.0) Red Blood Count 2.01 x10^6/uL (4.30-5.70) 2.71 x10^6/uL (4.30-5.70) Hemoglobin 6.5 g/dL (13.0-17.5) 8.5 g/dL (13.0-17.5) Hematocrit 19.1 % (39.0-53.0) 25.1 % (39.0-53.0) Mean Corpuscular Volume 95 fL (79-100) 92 fL (79-100) Mean Corpuscular Hemoglobin 32 pg (25-35) 32 pg (25-35) Mean Corpuscular Hemoglobin Concent 34 g/dL (31-37) 34 g/dL (31-37) Red Cell Distribution Width 14.9 % (11.5-14.5) 14.5 % (11.5-14.5) Platelet Count 272 x10^3/uL (140-400) 263 x10^3/uL (140-400) Glucose (Fingerstick) 231 mg/dL (70-99) 200 mg/dL (70-99) Prothrombin Time 13.9 SEC (11.7-14.0) Prothromb Time International Ratio 1.1 (0.8-1.1) Test 05/26/19 00:01 05/26/19 05:30 05/26/19 05:36 Glucose (Fingerstick) 265 mg/dL (70-99) 208 mg/dL (70-99) Hemoglobin 8.3 g/dL (13.0-17.5) Sodium Level 140 mmol/L (136-145) Potassium Level 3.8 mmol/L (3.5-5.1) Chloride Level 105 mmol/L (98-107) Carbon Dioxide Level 24 mmol/L (21-32) Anion Gap 11 (6-14) Blood Urea Nitrogen 41 mg/dL (8-26) Creatinine 1.7 mg/dL (0.7-1.3) Estimated GFR (Cockcroft-Gault) 39.7 Glucose Level 220 mg/dL (70-99) Calcium Level 8.4 mg/dL (8.5-10.1) Phosphorus Level 3.7 mg/dL (2.6-4.7) Magnesium Level 2.0 mg/dL (1.8-2.4) Creatine Kinase 67 U/L (39-308) Albumin 1.7 g/dL (3.4-5.0) Problem List Problems Medical Problems: (1) Perforated intestine, nontraumatic Status: Acute Assessment/Plan possible select, leave MACKENZIE IR to remove perc drain FABI MASSEY APRN May 26, 2019 12:05
--- NOTE | 2019-05-26 12:32 | NUR ---
SS following up with discharge planning. Discharge orders for [facility], ; fax [phone], received. SS phoned and faxed clinical updates and discharge orders to [facility]. [facility] reported that they are reviewing clinical and discharge orders at this time and will contact SS with further information. Pt's spouse consented to transfer to [facility]. SS will await further communication from [facility] will proceed accordingly.
--- NOTE | 2019-05-26 12:54 | NUR ---
SS following up with discharge planning. [facility] contacted SS and requested transport. Pt will discharge today and go to [facility] at 1430 via [facility] ambulance. Pt, pt's RN, and pt's spouse notified.
--- NOTE | 2019-05-26 14:26 | NUR ---
Report given to Edwige NIEVES at [facility] at 1400. Notified of need for MACKENZIE #2 (labelled) to be removed by Dr. Begum. Patient's personal photographs (of dogs) in yellow packet. All belongings in bags, ready for transport.
--- NOTE | 2019-05-26 14:28 | PDOC ---
PROGRESS NOTES Assessment Assessment Abnormal jerking like movements. Metabolic encephalopathy. ET. Agitation. Delirium. Bowel perforation s/p surgery. Fever. Hyperglycemia. DM. Renal failure. Anemia. HTN. HLD. COPD. Obesity. RECOMMENDATIONS/PLAN: Continue Keppra 250 mg bid. Continue Statin. Treat medical and surgical diseases. Unable to perform MRI on him due to agitation and delirium. Try MRI again when stable. Discussed with his at bedside in ICU before. HCT: No acute findings. EEG 05/23/19: Encephalopathy. History of Present Illness This is a 73-year-old white male patient was came to the ER of [facility] on 05/08/19 with complaints of severe abdominal pain, nausea, vomiting. He had a right shoulder surgery 2 days prior and has been on nonsteroidal anti-inflammatories for quite some time. Abdomen CT scan shows free air in the right upper quadrant with some perihepatic ascites. Neurology was request for a consultation on 05/18/19 due to abnormal movements, mental status changes, and confusion. 05/26/19: His mentation slightly improved and able to open eyes per commands. Past Medical History Cardiovascular: HTN Pulmonary: No pertinent hx GI: Gastritis, Peptic Ulcer disease Heme/Onc: No pertinent hx Hepatobiliary: No pertinent hx Psych: No pertinent hx Musculoskeletal: Other (shoulder pain) Rheumatologic: No pertinent hx Infectious disease: No pertinent hx ENT: No pertinent hx Renal/: Chronic renal insuff Endocrine: Diabetes Dermatology: No pertinent hx Past Surgical History Right shoulder surgery postop 2 days to this admission. Family History No Significant Social History ALCOHOL: rare Drugs: None Lives: with Family Allergies Coded Allergies: sulfamethoxazole (Verified Allergy, Severe, Altered Mental Status , ) trimethoprim (Verified Allergy, Severe, Altered Mental Status , 05/08/19) Sulfa (Sulfonamide Antibiotics) (Verified Allergy, Intermediate, 02/18/19) ciprofloxacin (Verified Allergy, Unknown, rash, 05/08/19) codeine (Verified Allergy, Unknown, Rash, 05/08/19) MEDICATIONS: Refer to [facility] REVIEW OF SYSTEMS: Constitutional: Obesity. Head: No traumatic brain or head injury. Skin: No edema, or rash. Ear: No infection. Eyes: No vision loss or color blindness. Nose: No bleeding or purulent discharges. Hearing: Hearing decrease. Neck: No injury. Cardiac: HTN, HLD. Pulmonary: COPD. GI: Abdomen pain. Urinary/genital: UTI. Endocrinologic: Diabetes Mellitus, obesity. Skeletomuscular: Tremors. Neurological: see HP. Psychiatric: Denies drug use/abuse. Otherwise, not [id number] review of systems. PHYSICAL EXAMINATION: General appearance is in subacute distress. HEENT: Normocephalic and nontraumatic. Eyes, nose, ears, and throat are unremarkable. Neck is supple. No lymphadenopathy. No crepitus. Cardiovascular: S1, S2. Pulmonary: decreased to auscultation bilaterally. Abdomen: Bowel sounds are positive? Extremities: No rash, lesions, or edema. No restriction of range of motion NEUROLOGICAL EXAMINATION: Drowsiness. Abnormal movements obviously controlled. Not oriented to time, place but knew person. PERRL. EOMI. CN: no focal findings. Muscle tone: Fluctuated. Muscle strength: 4-. DTR: 1+ Plantar reflex: Neutral response bilaterally Gait: not able to walk. Sensory exam: No acute abnormal findings. No other cerebellar signs elicited. F-T-N test not performed due to not follow commands. Objective Objective Vital Signs Date Time Temp Pulse Resp B/P (MAP) Pulse Ox O2 Delivery O2 Flow Rate FiO2 05/26/19 12:09 97 Room Air 05/26/19 12:00 99.5 85 22 112/61 (78) 99.5 Intake and Output 05/26/19 07:00 Intake Total 3959.5 ml Output Total 3600 ml Balance 359.5 ml IV Total 2748.5 ml Blood Product 341 ml Blood Product IV Normal Saline Flush 870 ml Output Urine Total 2550 ml Drainage Total 1050 ml # Bowel Movements 1 Vitals Signs Vitals VS - Last 72 Hours, by Label Date Time Temp Pulse Resp B/P (MAP) Pulse Ox O2 Delivery O2 Flow Rate FiO2 05/26/19 12:09 97 Room Air 05/26/19 12:00 99.5 85 22 112/61 (78) 97 Room Air 99.5 05/26/19 12:00 Room Air 05/26/19 11:00 94 23 133/63 (86) 96 Room Air 05/26/19 10:00 90 20 154/75 (101) 97 Room Air 05/26/19 09:00 88 19 131/58 (82) 95 Room Air 05/26/19 08:19 Room Air 05/26/19 08:09 97 Room Air 05/26/19 08:00 99.5 81 21 155/75 (101) 97 Room Air 99.5 05/26/19 07:00 97 23 144/66 (92) 96 Room Air 05/26/19 06:00 77 24 150/70 (96) 98 Room Air 05/26/19 05:00 87 20 148/66 (93) 98 Room Air 05/26/19 04:00 99.0 82 22 136/50 (78) 97 Room Air 99.0 05/26/19 04:00 Room Air 05/26/19 03:00 76 23 108/60 (76) 97 Room Air 05/26/19 02:00 80 25 128/61 (83) 97 Room Air 05/26/19 01:00 81 22 103/49 (67) 96 Room Air 05/26/19 00:00 Room Air 05/26/19 00:00 98.9 84 25 135/60 (85) 96 Room Air 98.9 05/25/19 23:00 80 23 115/56 (75) 96 Room Air 05/25/19 22:00 94 24 143/60 (87) 96 Room Air 05/25/19 21:00 99.0 97 29 139/64 (89) 95 Room Air 99.0 05/25/19 21:00 99.0 97 29 139/64 99.0 05/25/19 20:06 97 Room Air 05/25/19 20:06 97 Room Air 05/25/19 20:00 99.0 86 23 137/58 99.0 05/25/19 20:00 99.0 86 23 137/58 (84) 100 Room Air 99.0 05/25/19 20:00 Room Air 05/25/19 19:00 99.0 88 16 148/65 99.0 05/25/19 19:00 88 16 148/65 (92) 97 Room Air 05/25/19 18:00 98.9 86 24 119/54 (75) 96 Room Air 98.9 05/25/19 17:53 99.0 87 22 119/54 99.0 05/25/19 17:45 99.0 82 19 119/52 (74) 96 Room Air 99.0 05/25/19 17:30 84 22 131/64 (86) 95 Room Air 05/25/19 17:00 99.0 88 21 129/62 (84) 95 Room Air 99.0 05/25/19 16:30 86 20 116/52 (73) 96 Room Air 05/25/19 16:05 98 Room Air 05/25/19 16:00 Room Air 05/25/19 16:00 98.9 80 17 114/54 (74) 96 Room Air 98.9 05/25/19 15:42 98.9 82 21 116/52 98.9 05/25/19 15:00 86 16 116/52 (73) 96 Room Air 05/25/19 14:00 91 21 117/61 (79) 96 Room Air 05/25/19 13:00 87 22 153/62 (92) 95 Room Air 05/25/19 12:30 95 Room Air 05/25/19 12:00 Room Air 05/25/19 12:00 98.2 91 21 125/61 (82) 95 Room Air 98.2 05/25/19 11:00 88 24 86/43 (57) 96 Room Air 05/25/19 10:00 90 21 115/60 (78) 96 Room Air 05/25/19 09:00 93 22 132/60 (84) 94 Room Air 05/25/19 08:10 95 Room Air 05/25/19 08:00 98.8 95 22 116/62 (80) 95 Room Air 98.8 05/25/19 07:51 Room Air 05/25/19 07:00 93 24 160/69 (99) 95 Room Air Laboratory Laboratory Laboratory Tests Test 05/25/19 16:57 05/25/19 21:00 05/25/19 21:03 05/26/19 00:01 Glucose (Fingerstick) 231 mg/dL (70-99) 200 mg/dL (70-99) 265 mg/dL (70-99) White Blood Count 10.3 x10^3/uL (4.0-11.0) Red Blood Count 2.71 x10^6/uL (4.30-5.70) Hemoglobin 8.5 g/dL (13.0-17.5) Hematocrit 25.1 % (39.0-53.0) Mean Corpuscular Volume 92 fL (79-100) Mean Corpuscular Hemoglobin 32 pg (25-35) Mean Corpuscular Hemoglobin Concent 34 g/dL (31-37) Red Cell Distribution Width 14.5 % (11.5-14.5) Platelet Count 263 x10^3/uL (140-400) Prothrombin Time 13.9 SEC (11.7-14.0) Prothromb Time International Ratio 1.1 (0.8-1.1) Test 05/26/19 05:30 05/26/19 05:36 05/26/19 12:56 Hemoglobin 8.3 g/dL (13.0-17.5) Sodium Level 140 mmol/L (136-145) Potassium Level 3.8 mmol/L (3.5-5.1) Chloride Level 105 mmol/L (98-107) Carbon Dioxide Level 24 mmol/L (21-32) Anion Gap 11 (6-14) Blood Urea Nitrogen 41 mg/dL (8-26) Creatinine 1.7 mg/dL (0.7-1.3) Estimated GFR (Cockcroft-Gault) 39.7 Glucose Level 220 mg/dL (70-99) Calcium Level 8.4 mg/dL (8.5-10.1) Phosphorus Level 3.7 mg/dL (2.6-4.7) Magnesium Level 2.0 mg/dL (1.8-2.4) Creatine Kinase 67 U/L (39-308) Albumin 1.7 g/dL (3.4-5.0) Glucose (Fingerstick) 208 mg/dL (70-99) 236 mg/dL (70-99) Microbiology 05/15/19 AFB Specimen Processing Tissue - Final, Resulted 05/15/19 Acid Fast Bacilli Culture, Resulted Pending 05/15/19 Gram Stain - Final, Resulted 05/15/19 Fungal Culture - Preliminary, Resulted 05/15/19 Fungal Culture Result 1 - Preliminary, Resulted Medication Medications Current Medications Sodium Acetate 40 meq/Potassium Acetate 25 meq/ Potassium Phosphate 10 mmol/ Magnesium Sulfate 10 meq/Calcium Gluconate 5 meq/ Multivitamins 10 ml/Chromium/ Copper/Manganese/ Seleni/Zn 1 ml/ Insulin Human Regular 30 unit/ Total Parenteral Nutrition/Amino Acids/Dextrose/ Fat Emulsion Intravenous 2,400 ml @ 100 mls/hr TPN CONT IV Last administered on 05/25/19at 21:34; Start 05/25/19 at 22:00; Stop 05/26/19 at 21:59 Comment Review of Relevant I have reviewed the following items adriano (where applicable) has been applied. PATRICE LOVE MD May 26, 2019 14:28
--- NOTE | 2019-05-26 15:12 | NUR ---
Patient transferred to [facility] at 1430 via [facility]. All belongings taken with patient at time of transfer.
--- NOTE | 2019-05-26 19:15 | PDOC ---
PROGRESS NOTES Chief Complaint Chief Complaint Postop perforated ulcer repair Biliary leak Severe Sepsis. Assessment/Plan Assessment/Plan impression RESPIRATORY FAILURE SEVERE SEPSIS severe protein-caloric malnutrition Perforated viscus with free air peritonitis //Perforated duodenal ulcer Extraluminal collections of air are seen within the right upper quadrant of the abdomen. A small amount of free air is seen within the upper abdomen. Small amount of ascites is seen within the abdomen and pelvis. /// bowel perforation.// PERITONITIS plan ADMIT ICU Consult gen surgery nephrology consult PULM CONSULT ID CONSULT sepsis protocol IV ANTIBIOTICS, iv zosyn BLOOD CULTURE VENTURI MASK SUPPORT BRONCH per pulm Diagnostic laparoscopy with open laparotomy and closure of duodenal ulcer and Dawood patch 05-08 Impression Impression . 1. EXPECTED RESP FAILURE status post repair of a perforated duodenal ulcer. 2. Status post laparoscopy with open laparotomy for closure of a duodenal ulcer with Dawood patch. 05/08 3. Acute exacerbation of chronic obstructive pulmonary disease, resolving. 4. Tobacco dependence. 5. Hypertension. 6. Recent right shoulder repair. 7. anemia/ acute blood loss, 8. Fever. 9. Possible sepsis present upon admission. 10. CT-guided abdominal drain placement as described. 05/15 11. delrium 12. hypotension --improved Plan Plan . OK TO TRANSFER TO [facility] 1. Follow recommendations from surgery 2. currently of ABX, ID is following 3. cont. TPN and IVF 4. Continue supplemental oxygen and bronchodilators 5. pulmonary hygiene 6. supportive care 7. transfuse if HGB less than 7 History of Present Illness History of Present Illness The patient is a 73-year-old male with acute onset of right-sided mid abdominal pain, nausea, vomiting, started one hour prior to arrival. He had several episodes of vomiting since the onset. The patient was evaluated in the Emergency Room, underwent imaging studies revealing some free air in the abdomen. He subsequently underwent exploratory laparotomy by Dr. Hickman, revealing evidence of a perforated duodenal ulcer. He underwent diagnostic laparoscopy with open laparotomy and closure of a duodenal ulcer with a Dawood patch. 05/23: Patient was seen and examined in ICU, patient is asleep and non- arousable, Discussed with RN, who states that the patient was given pain medication last night for abdominal pain and is tender to palpation of the abdomen. Patient was noted to be shaking rapidly. Patient was running a low grade fever last night, however is not currently running a fever. 05/24: Patient was seen and examined in ICU, patient is sleeping soundly and not shaking today. DW . Wound dressing is noted to be clean/ dry and intact. Patient currently on a Patrick to BSD. TPN is currently running. Patient has 2 MACKENZIE drains in RLQ. 05/25: Patient was seen and examined in ICU, patient is sleeping soundly and not shaking today. DW . Wound dressing is noted to be clean/ dry and intact. Patient currently on a Patrick to BSD. TPN is currently running. Patient has 2 MACKENZIE drains in RLQ. patient's Hbg has declined from 8.1 to 7.2, will transfuse 1 unit of blood today. [id number] Patient seen and examined in the ICU His is present Discussed with RN Chart reviewed Vitals Vitals Vital Signs Date Time Temp Pulse Resp B/P (MAP) Pulse Ox O2 Delivery O2 Flow Rate FiO2 05/26/19 12:09 97 Room Air 05/26/19 12:00 99.5 85 22 112/61 (78) 99.5 Physical Exam Physical Exam GENERAL: Propped up in bed, encephalopathic, mittens in place HEENT: Pupils equally round. Oropharynx very dry, NGT NECK: Supple. LUNGS: Clear to auscultation. HEART: S1, S2 regular. ABDOMEN: Obese, soft, no guarding or grimacing to palpation. MACKENZIE drain. incision healing well, hypoactive bowel sounds : Indwelling Patrick in place EXTREMITIES: No gross edema or cyanosis.. Right shoulder incision healing well SKIN: Warm to touch. No signs of rash. NEUROLOGIC: Arouses to gentle stimuli, no follow commands or answers questions LUE - PICC clean General: Cooperative Heart: Regular rate (SR), Other (distant heart sounds) Lungs: Crackles Abdomen: Soft, Other Extremities: No clubbing, No cyanosis, No edema, Normal pulses, No tenderness/swelling Skin: No rashes, No breakdown, No significant lesion, Other (abdominal surgical incision) Labs LABS Laboratory Tests Test 05/25/19 21:00 05/25/19 21:03 05/26/19 00:01 05/26/19 05:30 White Blood Count 10.3 x10^3/uL (4.0-11.0) Red Blood Count 2.71 x10^6/uL (4.30-5.70) Hemoglobin 8.5 g/dL (13.0-17.5) 8.3 g/dL (13.0-17.5) Hematocrit 25.1 % (39.0-53.0) Mean Corpuscular Volume 92 fL (79-100) Mean Corpuscular Hemoglobin 32 pg (25-35) Mean Corpuscular Hemoglobin Concent 34 g/dL (31-37) Red Cell Distribution Width 14.5 % (11.5-14.5) Platelet Count 263 x10^3/uL (140-400) Prothrombin Time 13.9 SEC (11.7-14.0) Prothromb Time International Ratio 1.1 (0.8-1.1) Glucose (Fingerstick) 200 mg/dL (70-99) 265 mg/dL (70-99) Sodium Level 140 mmol/L (136-145) Potassium Level 3.8 mmol/L (3.5-5.1) Chloride Level 105 mmol/L (98-107) Carbon Dioxide Level 24 mmol/L (21-32) Anion Gap 11 (6-14) Blood Urea Nitrogen 41 mg/dL (8-26) Creatinine 1.7 mg/dL (0.7-1.3) Estimated GFR (Cockcroft-Gault) 39.7 Glucose Level 220 mg/dL (70-99) Calcium Level 8.4 mg/dL (8.5-10.1) Phosphorus Level 3.7 mg/dL (2.6-4.7) Magnesium Level 2.0 mg/dL (1.8-2.4) Creatine Kinase 67 U/L (39-308) Albumin 1.7 g/dL (3.4-5.0) Test 05/26/19 05:36 05/26/19 12:56 Glucose (Fingerstick) 208 mg/dL (70-99) 236 mg/dL (70-99) Assessment and Plan Assessmemt and Plan Problems Medical Problems: (1) Perforated intestine, nontraumatic Status: Acute Comment Review of Relevant I have reviewed the following items adriano (where applicable) has been applied. Labs Laboratory Tests Test 05/25/19 00:01 05/25/19 05:52 05/25/19 08:20 05/25/19 11:49 Glucose (Fingerstick) 260 mg/dL (70-99) 216 mg/dL (70-99) 255 mg/dL (70-99) Sodium Level 142 mmol/L (136-145) Potassium Level 3.7 mmol/L (3.5-5.1) Chloride Level 107 mmol/L (98-107) Carbon Dioxide Level 23 mmol/L (21-32) Anion Gap 12 (6-14) Blood Urea Nitrogen 53 mg/dL (8-26) Creatinine 1.8 mg/dL (0.7-1.3) Estimated GFR (Cockcroft-Gault) 37.2 Glucose Level 183 mg/dL (70-99) Calcium Level 8.3 mg/dL (8.5-10.1) Phosphorus Level 3.3 mg/dL (2.6-4.7) Magnesium Level 2.0 mg/dL (1.8-2.4) Test 05/25/19 12:05 05/25/19 16:57 05/25/19 21:00 05/25/19 21:03 White Blood Count 10.6 x10^3/uL (4.0-11.0) 10.3 x10^3/uL (4.0-11.0) Red Blood Count 2.01 x10^6/uL (4.30-5.70) 2.71 x10^6/uL (4.30-5.70) Hemoglobin 6.5 g/dL (13.0-17.5) 8.5 g/dL (13.0-17.5) Hematocrit 19.1 % (39.0-53.0) 25.1 % (39.0-53.0) Mean Corpuscular Volume 95 fL (79-100) 92 fL (79-100) Mean Corpuscular Hemoglobin 32 pg (25-35) 32 pg (25-35) Mean Corpuscular Hemoglobin Concent 34 g/dL (31-37) 34 g/dL (31-37) Red Cell Distribution Width 14.9 % (11.5-14.5) 14.5 % (11.5-14.5) Platelet Count 272 x10^3/uL (140-400) 263 x10^3/uL (140-400) Glucose (Fingerstick) 231 mg/dL (70-99) 200 mg/dL (70-99) Prothrombin Time 13.9 SEC (11.7-14.0) Prothromb Time International Ratio 1.1 (0.8-1.1) Test 05/26/19 00:01 05/26/19 05:30 05/26/19 05:36 05/26/19 12:56 Glucose (Fingerstick) 265 mg/dL (70-99) 208 mg/dL (70-99) 236 mg/dL (70-99) Hemoglobin 8.3 g/dL (13.0-17.5) Sodium Level 140 mmol/L (136-145) Potassium Level 3.8 mmol/L (3.5-5.1) Chloride Level 105 mmol/L (98-107) Carbon Dioxide Level 24 mmol/L (21-32) Anion Gap 11 (6-14) Blood Urea Nitrogen 41 mg/dL (8-26) Creatinine 1.7 mg/dL (0.7-1.3) Estimated GFR (Cockcroft-Gault) 39.7 Glucose Level 220 mg/dL (70-99) Calcium Level 8.4 mg/dL (8.5-10.1) Phosphorus Level 3.7 mg/dL (2.6-4.7) Magnesium Level 2.0 mg/dL (1.8-2.4) Creatine Kinase 67 U/L (39-308) Albumin 1.7 g/dL (3.4-5.0) Laboratory Tests Test 05/25/19 21:00 05/25/19 21:03 05/26/19 00:01 05/26/19 05:30 White Blood Count 10.3 x10^3/uL (4.0-11.0) Red Blood Count 2.71 x10^6/uL (4.30-5.70) Hemoglobin 8.5 g/dL (13.0-17.5) 8.3 g/dL (13.0-17.5) Hematocrit 25.1 % (39.0-53.0) Mean Corpuscular Volume 92 fL (79-100) Mean Corpuscular Hemoglobin 32 pg (25-35) Mean Corpuscular Hemoglobin Concent 34 g/dL (31-37) Red Cell Distribution Width 14.5 % (11.5-14.5) Platelet Count 263 x10^3/uL (140-400) Prothrombin Time 13.9 SEC (11.7-14.0) Prothromb Time International Ratio 1.1 (0.8-1.1) Glucose (Fingerstick) 200 mg/dL (70-99) 265 mg/dL (70-99) Sodium Level 140 mmol/L (136-145) Potassium Level 3.8 mmol/L (3.5-5.1) Chloride Level 105 mmol/L (98-107) Carbon Dioxide Level 24 mmol/L (21-32) Anion Gap 11 (6-14) Blood Urea Nitrogen 41 mg/dL (8-26) Creatinine 1.7 mg/dL (0.7-1.3) Estimated GFR (Cockcroft-Gault) 39.7 Glucose Level 220 mg/dL (70-99) Calcium Level 8.4 mg/dL (8.5-10.1) Phosphorus Level 3.7 mg/dL (2.6-4.7) Magnesium Level 2.0 mg/dL (1.8-2.4) Creatine Kinase 67 U/L (39-308) Albumin 1.7 g/dL (3.4-5.0) Test 05/26/19 05:36 05/26/19 12:56 Glucose (Fingerstick) 208 mg/dL (70-99) 236 mg/dL (70-99) Microbiology 05/15/19 AFB Specimen Processing Tissue - Final, Resulted 05/15/19 Acid Fast Bacilli Culture, Resulted Pending 05/15/19 Gram Stain - Final, Resulted 05/15/19 Fungal Culture - Preliminary, Resulted 05/15/19 Fungal Culture Result 1 - Preliminary, Resulted Medications Current Medications Fentanyl Citrate (Fentanyl 2ml Vial) 50 mcg PRN Q15MIN PRN IV PAIN GREATER THAN 3/10 Last administered on 05/08/19at 19:27; Start 05/08/19 at 16:30; Stop 05/08/19 at 21:00; Status DC Sodium Chloride 1,000 ml @ 250 mls/hr Q4H IV Last administered on 05/08/19at 16:54; Start 05/08/19 at 16:19; Stop 05/08/19 at 20:18; Status DC Metoclopramide HCl (Reglan Vial) 10 mg 1X ONCE IVP Last administered on 05/08/19at 16:51; Start 05/08/19 at 17:00; Stop 05/08/19 at 17:01; Status DC Diphenhydramine HCl (Benadryl) 25 mg 1X ONCE IVP Last administered on 05/08/19at 16:51; Start 05/08/19 at 17:00; Stop 05/08/19 at 17:01; Status DC Iohexol (Omnipaque 350 Mg/ml) 90 ml 1X ONCE IV Last administered on 05/08/19at 17:45; Start 05/08/19 at 17:30; Stop 05/08/19 at 17:31; Status DC Info (CONTRAST GIVEN -- Rx MONITORING) 1 each PRN DAILY PRN MC SEE COMMENTS; Start 05/08/19 at 17:30; Stop 05/10/19 at 17:29; Status DC Hydromorphone HCl (Dilaudid) 1 mg 1X ONCE IV Last administered on 05/08/19at 18:23; Start 05/08/19 at 18:30; Stop 05/08/19 at 18:31; Status DC Piperacillin Sod/ Tazobactam Sod 3.375 gm/Sodium Chloride 50 ml @ 100 mls/hr 1X ONCE IV Last administered on 05/08/19at 19:06; Start 05/08/19 at 19:00; Stop 05/08/19 at 19:29; Status DC Sodium Chloride 1,000 ml @ 1,000 mls/hr 1X ONCE IV Last administered on 05/08/19at 19:06; Start 05/08/19 at 19:00; Stop 05/08/19 at 19:59; Status DC Ondansetron HCl (Zofran) 4 mg STK-MED ONCE .ROUTE ; Start 05/08/19 at 19:34; Stop 05/08/19 at 19:34; Status DC Propofol 20 ml @ As Directed STK-MED ONCE IV ; Start 05/08/19 at 19:34; Stop 05/08/19 at 19:34; Status DC Lidocaine HCl (Lidocaine Pf 2% Vial) 5 ml STK-MED ONCE .ROUTE ; Start 05/08/19 at 19:34; Stop 05/08/19 at 19:34; Status DC Dexamethasone Sodium Phosphate (Decadron) 4 mg STK-MED ONCE .ROUTE ; Start 05/08/19 at 19:34; Stop 05/08/19 at 19:34; Status DC Fentanyl Citrate (Fentanyl 2ml Vial) 100 mcg STK-MED ONCE .ROUTE ; Start 05/08/19 at 19:34; Stop 05/08/19 at 19:34; Status DC Succinylcholine Chloride (Anectine) 200 mg STK-MED ONCE .ROUTE ; Start 05/08/19 at 19:34; Stop 05/08/19 at 19:34; Status DC Rocuronium Gunlock (Zemuron) 50 mg STK-MED ONCE .ROUTE ; Start 05/08/19 at 19:34; Stop 05/08/19 at 19:34; Status DC Ondansetron HCl (Zofran) 4 mg PRN Q6HRS PRN IV NAUSEA/VOMITING; Start 05/08/19 at 19:45; Stop 05/08/19 at 23:59; Status DC Fentanyl Citrate (Fentanyl 2ml Vial) 25 mcg PRN Q5MIN PRN IV MILD PAIN 1-3; Start 05/08/19 at 19:45; Stop 05/08/19 at 23:59; Status DC Fentanyl Citrate (Fentanyl 2ml Vial) 50 mcg PRN Q5MIN PRN IV MODERATE TO SEVERE PAIN; Start 05/08/19 at 19:45; Stop 05/08/19 at 23:59; Status DC Ringer's Solution 1,000 ml @ 30 mls/hr Q24H IV Last administered on 05/08/19at 23:06; Start 05/08/19 at 20:00; Stop 05/09/19 at 01:00; Status DC Prochlorperazine Edisylate (Compazine) 5 mg PACU PRN PRN IV NAUSEA, MRX1; Start 05/08/19 at 19:45; Stop 05/08/19 at 23:59; Status DC Insulin Human Lispro (HumaLOG VIAL for OP,RR ONLY) 0-10 units PRN Q1HR PRN SQ PER PROTOCOL; Start 05/08/19 at 19:45; Stop 05/08/19 at 23:59; Status DC Bupivacaine HCl/ Epinephrine Bitart (Sensorcaine-Epi 0.25%-1:015725 Mpf) 30 ml 1X ONCE INJ Last administered on 05/08/19at 20:32; Start 05/08/19 at 20:00; Stop 05/08/19 at 20:01; Status DC Ketamine HCl (Ketamine) 50 mg STK-MED ONCE .ROUTE ; Start 05/08/19 at 20:12; Stop 05/08/19 at 20:12; Status DC Phenylephrine HCl (PHENYLEPHRINE in 0.9% NACL PF) 1 mg STK-MED ONCE IV ; Start 05/08/19 at 20:33; Stop 05/08/19 at 20:33; Status DC Ephedrine Sulfate (ePHEDrine PF IN SALINE SYRINGE) 50 mg STK-MED ONCE IV ; Start 05/08/19 at 20:36; Stop 05/08/19 at 20:36; Status DC Albumin Human 500 ml @ As Directed STK-MED ONCE IV ; Start 05/08/19 at 20:55; Stop 05/08/19 at 20:55; Status DC Glycopyrrolate (Robinul) 1 mg STK-MED ONCE .ROUTE ; Start 05/08/19 at 21:27; Stop 05/08/19 at 21:27; Status DC Neostigmine Methylsulfate (Neostigmine Methylsulfate) 5 mg STK-MED ONCE .ROUTE ; Start 05/08/19 at 21:27; Stop 05/08/19 at 21:27; Status DC Bupivacaine HCl (Sensorcaine Mpf 0.5%) 30 ml STK-MED ONCE .ROUTE ; Start 05/08/19 at 21:39; Stop 05/08/19 at 21:39; Status DC Epinephrine HCl (Adrenalin) 1 mg STK-MED ONCE .ROUTE ; Start 05/08/19 at 21:39; Stop 05/08/19 at 21:39; Status DC Sevoflurane (Ultane) 60 ml STK-MED ONCE IH ; Start 05/08/19 at 21:44; Stop 05/08/19 at 21:44; Status DC Sodium Chloride 1,000 ml @ 125 mls/hr Q8H IV Last administered on 05/08/19at 23:45; Start 05/08/19 at 22:00; Stop 05/09/19 at 15:21; Status DC Ondansetron HCl (Zofran) 4 mg PRN Q6HRS PRN IVP NAUSEA/VOMITING 1ST CHOICE; Start 05/08/19 at 22:00; Stop 05/26/19 at 15:28; Status DC Fluconazole/ Sodium Chloride 100 ml @ 100 mls/hr Q24H IV Last administered on 05/13/19at 21:14; Start 05/08/19 at 22:00; Stop 05/14/19 at 10:28; Status DC Hydromorphone HCl (Dilaudid) 1 mg PRN Q4HRS PRN IV SEVERE PAIN 7-10 Last administered on 05/18/19at 10:14; Start 05/08/19 at 22:00; Stop 05/18/19 at 13:06; Status DC Piperacillin Sod/ Tazobactam Sod 3.375 gm/Sodium Chloride 50 ml @ 100 mls/hr Q6HRS IV Last administered on 05/14/19at 05:49; Start 05/09/19 at 00:00; Stop 05/14/19 at 10:28; Status DC Pantoprazole Sodium (PROTONIX VIAL for IV PUSH) 40 mg DAILY IVP Last administered on 05/11/19at 09:43; Start 05/09/19 at 09:00; Stop 05/12/19 at 08:30; Status DC Insulin Human Regular 150 unit/ Sodium Chloride 151.5 ml @ 0 mls/hr CONT PRN IV SEE I/O RECORD; Start 05/08/19 at 23:00; Status UNV Insulin Human Regular 150 unit/ Sodium Chloride 151.5 ml @ 0 mls/hr CONT PRN IV SEE I/O RECORD Last administered on 05/08/19at 23:03; Start 05/08/19 at 23:00; Stop 05/12/19 at 13:06; Status DC Dextrose (Dextrose 50%-Water Syringe) 12.5 gm PRN Q15MIN PRN IV LOW BLOOD SUGAR; Start 05/08/19 at 23:00; Stop 05/17/19 at 08:35; Status DC Dextrose 250 ml PRN Q15MIN PRN IV LOW BLOOD SUGAR; Start 05/08/19 at 23:00; Stop 05/26/19 at 15:28; Status DC Albumin Human 500 ml @ 250 mls/hr 1X ONCE IV Last administered on 05/09/19at 00:10; Start 05/09/19 at 00:30; Stop 05/09/19 at 02:29; Status DC Norepinephrine Bitartrate 250 ml @ 20.156 mls/ hr CONT PRN IV SEE I/O RECORD; Start 05/09/19 at 00:00; Stop 05/12/19 at 13:06; Status DC Dextrose/Sodium Chloride 1,000 ml @ 150 mls/hr Q6H40M IV Last administered on 05/09/19at 12:28; Start 05/09/19 at 08:45; Stop 05/09/19 at 18:30; Status DC Sodium Chloride 500 ml @ 500 mls/hr PRN Q2HR PRN IV SEE COMMENTS; Start at 11:15; Stop 05/26/19 at 15:28; Status DC Sodium Chloride 1,000 ml @ 2,190 mls/hr Q28M IV ; Start 05/09/19 at 12:39; Stop 05/09/19 at 13:39; Status DC Sodium Chloride 500 ml @ 1,000 mls/hr PRN Q30MIN PRN IV SEE COMMENTS; Start 05/09/19 at 12:45; Stop 05/09/19 at 12:50; Status DC Norepinephrine Bitartrate 250 ml @ 19.688 mls/ hr CONT PRN IV SEE I/O RECORD; Start 05/09/19 at 12:45; Status Cancel Dobutamine HCl/ Dextrose 250 ml @ 15.75 mls/ hr CONT PRN IV SEE I/O RECORD; Start 05/09/19 at 12:45; Stop 05/12/19 at 13:06; Status DC Insulin Human Lispro (HumaLOG) 0-7 UNITS TIDWMEALS SQ ; Start 05/09/19 at 17:0 0; Stop 05/09/19 at 19:36; Status DC Dextrose (Dextrose 50%-Water Syringe) 12.5 gm PRN Q15MIN PRN IV SEE COMMENTS; Start 05/09/19 at 15:30; Status UNV Sodium Chloride 1,000 ml @ 60 mls/hr [id number] IV Last administered on 05/10/19at 16:47; Start 05/09/19 at 15:30; Stop 05/12/19 at 10:57; Status DC Insulin Human Lispro (HumaLOG) 0-7 UNITS Q6HRS SQ Last administered on 05/13at 05:50; Start 05/10/19 at 00:00; Stop 05/13/19 at 08:27; Status DC Albuterol/ Ipratropium (Duoneb) 3 ml RTQID NEB Last administered on 05/26/19at 12:08; Start 05/10/19 at 08:00; Stop 05/26/19 at 15:28; Status DC Budesonide (Pulmicort) 0.5 mg RTBID NEB Last administered on 05/26/19at 08:09; Start 05/10/19 at 08:00; Stop 05/26/19 at 15:28; Status DC Heparin Sodium (Porcine) (Heparin Sodium) 5,000 unit BID SQ Last administered on 05/25/19at 22:06; Start 05/11/19 at 10:00; Stop 05/26/19 at 15:28; Status DC Phenol (Chloraseptic) 1 spray PRN Q2HR PRN PO SORE THROAT Last administered on 05/11/19at 13:12; Start 05/11/19 at 11:30; Stop 05/26/19 at 15:28; Status DC Multi-Ingredient Ointment (Analgesic Jeremiah) 1 jazlyn PRN QID PRN TP MUSCLE PAIN; S tart 05/11/19 at 11:30; Stop 05/26/19 at 15:28; Status DC Amino Acids/ Glycerin/ Electrolytes 1,000 ml @ 80 mls/hr [id number] IV Last administered on 05/15/19at 05:59; Start 05/11/19 at 12:00; Stop 05/15/19 at 21:59; Status DC Hydralazine HCl (Apresoline Inj) 10 mg PRN Q4HRS PRN IVP ELEVATED BP, 1ST CHOICE; Start 05/11/19 at 11:45; Stop 05/26/19 at 15:28; Status DC Pantoprazole Sodium (Protonix) 40 mg DAILYAC PO Last administered on 05/14/19at 06:04; Start 05/12/19 at 09:00; Stop 05/17/19 at 11:29; Status DC Carbidopa/Levodopa (Sinemet 25/100) 1 tab TID PO ; Start 05/12/19 at 14:00; Stop 05/12/19 at 13:40; Status DC Lisinopril (Prinivil) 10 mg DAILY PO Last administered on 05/14/19at 09:14; Start 05/13/19 at 09:00; Stop 05/16/19 at 10:07; Status DC Simvastatin (Zocor) 10 mg QHS PO Last administered on 05/25/19at 21:06; Start 05/12/19 at 21:00; Stop 05/26/19 at 15:28; Status DC Venlafaxine HCl (Effexor) 75 mg DAILY PO Last administered on 05/12/19at 13:34; Start 05/12/19 at 13:30; Stop 05/12/19 at 14:20; Status DC Primidone (Mysoline) 50 mg DAILY PO ; Start 05/12/19 at 13:45; Stop 05/12/19 at 14:27; Status DC Insulin Glargine (Lantus Syringe) 15 unit QHS SQ Last administered on 05/16/19at 22:25; Start 05/12/19 at 21:00; Stop 05/17/19 at 08:31; Status DC Venlafaxine HCl (Effexor Xr) 75 mg DAILY PO Last administered on 05/26/19at 10:07; Start 05/13/19 at 09:00; Stop 05/26/19 at 15:28; Status DC Lactobacillus Rhamnosus (Culturelle) 1 cap BID PO Last administered on 05/23/19at 08:49; Start 05/12/19 at 21:00; Stop 05/23/19 at 13:02; Status DC Primidone (Mysoline) 25 mg BID PO Last administered on 05/26/19at 10:07; Start 05/12/19 at 14:30; Stop 05/26/19 at 15:28; Status DC Gabapentin (Neurontin) 300 mg PRN QHS PRN PO NEUROPATHIC PAIN Last administered on 05/12/19at 20:53; Start 05/12/19 at 17:45; Stop 05/26/19 at 15:28; Status DC Acetaminophen (Tylenol) 500 mg PRN Q6HRS PRN PO MILD PAIN / TEMP; Start 05/13/19 at 08:30; Stop 05/26/19 at 15:28; Status DC Tramadol HCl (Ultram) 50 mg PRN Q6HRS PRN PO PAIN MOD TO SEV Last administered on 05/14/19at 04:27; Start 05/13/19 at 08:30; Stop 05/19/19 at 16:19; Status DC Clonidine HCl (Catapres) 0.1 mg PRN Q1HR PRN PO HYPERTENSION; Start 05/13/19 at 08:30; Stop 05/26/19 at 15:28; Status DC Ondansetron HCl (Zofran) 4 mg PRN Q6HRS PRN IVP NAUSEA/VOMITING; Start 05/13/19 at 08:30; Status UNV Venlafaxine HCl (Effexor Xr) 37.5 mg BID PO ; Start 05/13/19 at 09:00; Stop 05/13/19 at 08:33; Status DC Iohexol (Omnipaque 240 Mg/ml) 30 ml 1X ONCE PO Last administered on 05/14/19at 08:45; Start 05/14/19 at 08:45; Stop 05/14/19 at 08:48; Status DC Iohexol (Omnipaque 300 Mg/ml) 60 ml 1X ONCE IV Last administered on 05/14/19at 08:45; Start 05/14/19 at 08:45; Stop 05/14/19 at 08:48; Status DC Info (CONTRAST GIVEN -- Rx MONITORING) 1 each PRN DAILY PRN MC SEE COMMENTS; Start 05/14/19 at 09:00; Stop 05/16/19 at 08:59; Status DC Daptomycin 570 mg/ Sodium Chloride 50 ml @ 100 mls/hr Q24H IV Last administered on 05/19/19at 13:21; Start 05/14/19 at 11:30; Stop 05/20/19 at 08:07; Status DC Micafungin Sodium 100 mg/Dextrose 100 ml @ 100 mls/hr Q24H IV Last ad ministered on 05/19/19at 11:32; Start 05/14/19 at 11:00; Stop 05/20/19 at 08:07; Status DC Cefepime HCl (Maxipime) 2 gm Q8HRS IVP Last administered on 05/18/19at 06:25; Start 05/14/19 at 12:00; Stop 05/18/19 at 08:18; Status DC Metronidazole 100 ml @ 100 mls/hr Q8HRS IV Last administered on 05/18/19at 06:28; Start 05/14/19 at 14:00; Stop 05/18/19 at 08:18; Status DC Lidocaine HCl (Buffered Lidocaine 1%) 3 ml STK-MED ONCE .ROUTE ; Start 05/14/19 at 12:43; Stop 05/14/19 at 12:44; Status DC Lidocaine HCl (Buffered Lidocaine 1%) 3 ml 1X ONCE IJ Last administered on 05/14/19at 13:14; Start 05/14/19 at 13:00; Stop 05/14/19 at 13:02; Status DC Info (Tpn Per Pharmacy) 1 each PRN DAILY PRN MC SEE COMMENTS Last administered on 05/18/19at 11:41; Start 05/14/19 at 16:00; Stop 05/19/19 at 11:20; Status DC Sodium Chloride 90 meq/Potassium Chloride 50 meq/ Potassium Phosphate 13.6 m mol/Magnesium Sulfate 10 meq/ Calcium Gluconate 10 meq/ Multivitamins 10 ml/Chromium/ Copper/Manganese/ Seleni/Zn 1 ml/ Total Parenteral Nutrition/Amino Acids/Dextrose/ Fat Emulsion Intravenous 1,512 ml @ 63 mls/hr TPN CONT IV Last administered on 05/15/19at 21:58; Start 05/15/19 at 22:00; Stop 05/16/19 at 21:59; Status DC Lidocaine HCl (Buffered Lidocaine 1%) 3 ml STK-MED ONCE .ROUTE ; Start 05/15/19 at 13:19; Stop 05/15/19 at 13:19; Status DC Midazolam HCl (Versed) 2 mg STK-MED ONCE .ROUTE ; Start 05/15/19 at 13:47; Stop 05/15/19 at 13:47; Status DC Fentanyl Citrate (Fentanyl 2ml Vial) 100 mcg STK-MED ONCE .ROUTE ; Start 05/15/19 at 13:47; Stop 05/15/19 at 13:47; Status DC Flumazenil (Romazicon) 0.5 mg STK-MED ONCE IV ; Start 05/15/19 at 13:47; Stop 05/15/19 at 13:47; Status DC Naloxone HCl (Narcan) 0.4 mg STK-MED ONCE .ROUTE ; Start 05/15/19 at 13:47; Stop 05/15/19 at 13:47; Status DC Lidocaine HCl (Buffered Lidocaine 1%) 4 ml 1X ONCE IJ Last administered on 05/15/19at 14:30; Start 05/15/19 at 14:30; Stop 05/15/19 at 14:38; Status DC Midazolam HCl (Versed) 1 mg 1X ONCE IV Last administered on 05/15/19at 14:30; Start 05/15/19 at 14:30; Stop 05/15/19 at 14:38; Status DC Fentanyl Citrate (Fentanyl 2ml Vial) 50 mcg 1X ONCE IV Last administered on 05/15/19at 14:30; Start 05/15/19 at 14:30; Stop 05/15/19 at 14:38; Status DC Insulin Human Lispro (HumaLOG) 0-9 UNITS TIDWMEALS SQ ; Start 05/16/19 at 17:00; Stop 05/16/19 at 13:29; Status DC Dextrose (Dextrose 50%-Water Syringe) 12.5 gm PRN Q15MIN PRN IV SEE COMMENTS; Start 05/16/19 at 13:15; Stop 05/26/19 at 15:28; Status DC Insulin Human Regular (HumuLIN R VIAL) 8 unit 1X ONCE IV Last administered on 05/16/19at 13:36; Start 05/16/19 at 13:15; Stop 05/16/19 at 13:22; Status DC Insulin Human Lispro (HumaLOG) 0-9 UNITS Q6HRS SQ Last administered on 05/26/19at 13:05; Start 05/16/19 at 18:00; Stop 05/26/19 at 15:28; Status DC Sodium Chloride 90 meq/Potassium Chloride 50 meq/ Potassium Phosphate 13.6 mmol/Magnesium Sulfate 10 meq/ Calcium Gluconate 10 meq/ Multivitamins 10 ml/Chromium/ Copper/Manganese/ Seleni/Zn 1 ml/ Total Parenteral Nutrition/Amino Acids/Dextrose/ Fat Emulsion Intravenous 1,512 ml @ 63 mls/hr TPN CONT IV Last administered on 05/16/19at 21:56; Start 05/16/19 at 22:00; Stop 05/17/19 at 21:59; Status DC Sodium Chloride 1,000 ml @ 75 mls/hr [id number] IV Last administered on 05/19/19at 04:50; Start 05/16/19 at 14:45; Stop 05/19/19 at 11:20; Status DC Insulin Glargine (Lantus Syringe) 22 unit QHS SQ Last administered on 05/17/19at 20:46; Start 05/17/19 at 08:30; Stop 05/18/19 at 07:49; Status DC Labetalol HCl (Normodyne Iv Push) 10 mg PRN Q2HR PRN IVP HYPERTENSION, 2ND CHOICE; Start 05/17/19 at 08:30; Stop 05/26/19 at 15:28; Status DC Insulin Glargine (Lantus Syringe) 10 unit 1X STAT SQ Last administered on 05/17/19at 09:13; Start 05/17/19 at 08:30; Stop 05/17/19 at 08:33; Status DC Pantoprazole Sodium (PROTONIX VIAL for IV PUSH) 40 mg DAILYAC IVP Last administered on 05/26/19at 10:07; Start 05/17/19 at 13:00; Stop 05/26/19 at 15:28; Status DC Sodium Chloride 60 meq/Potassium Chloride 30 meq/ Potassium Phosphate 13.6 mmol/Magnesium Sulfate 10 meq/ Calcium Gluconate 10 meq/ Multivitamins 10 ml/Chromium/ Copper/Manganese/ Seleni/Zn 1 ml/ Total Parenteral Nutrition/Amino Acids/Dextrose/ Fat Emulsion Intravenous 1,512 ml @ 63 mls/hr TPN CONT IV Last administered on 05/17/19at 23:13; Start 05/17/19 at 22:00; Stop 05/18/19 at 21:59; Status DC Haloperidol Lactate (Haldol Inj) 2 mg 1X ONCE IM ; Start 05/17/19 at 22:30; Stop 05/17/19 at 22:31; Status Cancel Haloperidol Lactate (Haldol Inj) 2 mg 1X ONCE IVP Last administered on 05/17/19at 23:01; Start 05/17/19 at 22:45; Stop 05/17/19 at 22:46; Status DC Lorazepam (Ativan Inj) 1 mg PRN Q6HRS PRN IVP ANXIETY / AGITATION Last administered on 05/18/19at 01:32; Start 05/18/19 at 01:30; Stop 05/18/19 at 07:48; Status DC Haloperidol Lactate (Haldol Inj) 5 mg 1X ONCE IVP Last administered on 05/18/19at 04:41; Start 05/18/19 at 04:30; Stop 05/18/19 at 04:31; Status DC Lorazepam (Ativan Inj) 1 mg 1X ONCE IVP Last administered on 05/18/19at 05:02; Start 05/18/19 at 04:30; Stop 05/18/19 at 04:31; Status DC Lorazepam (Ativan Inj) 2 mg PRN Q4HRS PRN IVP ANXIETY / AGITATION Last administered on 05/19/19at 03:07; Start 05/18/19 at 07:45; Stop 05/19/19 at 07:55; Status DC Insulin Glargine (Lantus Syringe) 35 unit QHS SQ Last administered on 05/25/19at 21:11; Start 05/18/19 at 21:00; Stop 05/26/19 at 15:28; Status DC Insulin Glargine (Lantus Syringe) 10 unit ONCE STAT SQ Last administered on 05/18/19at 07:47; Start 05/18/19 at 07:47; Stop 05/18/19 at 07:51; Status DC Haloperidol Lactate (Haldol Inj) 5 mg PRN Q6HRS PRN IVP AGITATION 2nd choice Last administered on 05/19/19at 07:07; Start 05/18/19 at 08:00; Stop 05/19/19 at 07:55; Status DC Meropenem 500 mg/ Sodium Chloride 50 ml @ 100 mls/hr Q6HRS IV Last administered on 05/21/19at 05:21; Start 05/18/19 at 09:00; Stop 05/21/19 at 09:28; Status DC Bacitracin (Bacitracin Zinc Oint Pkt) 1 pkt DAILY TP Last administered on 05/26at 10:08; Start 05/18/19 at 10:15; Stop 05/26/19 at 15:28; Status DC Potassium Phosphate 13.6 mmol/Magnesium Sulfate 10 meq/ Calcium Gluconate 10 meq/ Multivitamins 10 ml/Chromium/ Copper/Manganese/ Seleni/Zn 1 ml/ Total Parenteral Nutrition/Amino Acids/Dextrose/ Fat Emulsion Intravenous 1,512 ml @ 63 mls/hr TPN CONT IV Last administered on 05/18/19at 22:35; Start 05/18/19 at 22:00; Stop 05/19/19 at 13:00; Status DC Hydromorphone HCl (Dilaudid) 1 mg PRN Q2HR PRN IV SEVERE PAIN 7-10 Last administered on 05/19/19at 07:07; Start 05/18/19 at 13:15; Stop 05/19/19 at 07:55; Status DC Lacosamide 100 mg/ Dextrose 60 ml @ 120 mls/hr BID IV Last administered on 05/23/19at 08:22; Start 05/18/19 at 15:00; Stop 05/23/19 at 14:43; Status DC Haloperidol Lactate (Haldol Inj) 2.5 mg PRN Q6HRS PRN IVP AGITATION Last administered on 05/20/19at 23:24; Start 05/19/19 at 08:00; Stop 05/26/19 at 15:28; Status DC Hydromorphone HCl (Dilaudid) 0.5 mg PRN Q2HR PRN IV SEVERE PAIN 7-10 Last administered on 05/22/19at 21:33; Start 05/19/19 at 08:00; Stop 05/26/19 at 15:28; Status DC Lorazepam (Ativan Inj) 1 mg PRN Q4HRS PRN IVP ANXIETY / AGITATION Last administered on 05/19/19at 12:38; Start 05/19/19 at 08:00; Stop 05/19/19 at 16:19; Status DC Amino Acids/ Glycerin/ Electrolytes 1,000 ml @ 80 mls/hr [id number] IV Last administered on 05/22/19at 06:13; Start 05/19/19 at 13:00; Stop 05/22/19 at 21:59; Status DC Sodium Chloride 1,000 ml @ 75 mls/hr [id number] IV Last administered on 05/20/19at 05:13; Start 05/19/19 at 16:30; Stop 05/20/19 at 10:57; Status DC Meropenem 500 mg/ Sodium Chloride 50 ml @ 100 mls/hr Q8HRS IV Last administered on 05/22/19at 06:13; Start 05/21/19 at 14:00; Stop 05/22/19 at 08:24; Status DC Bisacodyl (Dulcolax Supp) 10 mg PRN DAILY PRN [place] CONSTIPATION Last administered on 05/21/19at 16:34; Start 05/21/19 at 15:45; Stop 05/26/19 at 15:28; Status DC Info (Tpn Per Pharmacy) 1 each PRN DAILY PRN MC SEE COMMENTS Last administered on 05/25/19at 09:33; Start 05/22/19 at 09:30; Stop 05/26/19 at 15:28; Status DC Sodium Chloride 40 meq/Potassium Phosphate 13.6 mmol/Magnesium Sulfate 10 meq/ Calcium Gluconate 5 meq/ Multivitamins 10 ml/Chromium/ Copper/Manganese/ Seleni/Zn 1 ml/ Total Parenteral Nutrition/Amino Acids/Dextrose/ Fat Emulsion Intravenous 1,800 ml @ 75 mls/hr TPN CONT IV Last administered on 05/22/19at 21:40; Start 05/22/19 at 22:00; Stop 05/23/19 at 21:59; Status DC Norepinephrine Bitartrate 250 ml @ 17.961 mls/ hr CONT PRN IV SEE I/O RECORD Last administered on 05/23/19at 08:51; Start 05/22/19 at 19:00; Stop 05/26/19 at 15:28; Status DC Sodium Chloride 1,000 ml @ 1,000 mls/hr 1X ONCE IV Last administered on 05/23/19at 08:11; Start 05/23/19 at 08:00; Stop 05/23/19 at 08:59; Status DC Sodium Bicarbonate 75 meq/Sterile Water 575 ml @ 125 mls/hr Q4H36M ONCE IV Last administered on 05/23/19at 08:42; Start 05/23/19 at 08:30; Stop 05/23/19 at 13:05; Status DC Sodium Acetate 40 meq/Potassium Phosphate 3.4 mmol/Magnesium Sulfate 10 meq/ Calcium Gluconate 5 meq/ Multivitamins 10 ml/Chromium/ Copper/Manganese/ Seleni/Zn 1 ml/ Insulin Human Regular 10 unit/ Total Parenteral Nutrition/Amino Acids/Dextrose/ Fat Emulsion Intravenous 2,400 ml @ 100 mls/hr TPN CONT IV Last administered on 05/23/19at 21:02; Start 05/23/19 at 22:00; Stop 05/24/19 at 21:59; Status DC Levetiracetam 250 mg/Dextrose 102.5 ml @ 420 mls/hr Q12HR IV Last administered on 05/26/19at 10:07; Start 05/23/19 at 15:00; Stop 05/26/19 at 15:28; Status DC Ringer's Solution 1,000 ml @ 75 mls/hr [id number] IV Last administered on 05/24/19at 10:19; Start 05/24/19 at 09:45; Stop 05/24/19 at 23:04; Status DC Darbepoetin Jose (ARANESP for NON-DIALYSIS PTS) 60 mcg [id number] SQ Last administered on 05/24/19at 21:07; Start 05/24/19 at 21:00; Stop 05/26/19 at 15:28; Status DC Sodium Acetate 40 meq/Potassium Phosphate 3.4 mmol/Magnesium Sulfate 10 meq/ Calcium Gluconate 5 meq/ Multivitamins 10 ml/Chromium/ Copper/Manganese/ Seleni/Zn 1 ml/ Insulin Human Regular 30 unit/ Total Parenteral Nutrition/Amino Acids/Dextrose/ Fat Emulsion Intravenous 2,400 ml @ 100 mls/hr TPN CONT IV Last administered on 05/24/19at 21:33; Start 05/24/19 at 22:00; Stop 05/25/19 at 21:59; Status DC Magnesium Sulfate 50 ml @ 25 mls/hr PRN DAILY PRN IV for Mag < 1.7 on am labs; Start 05/25/19 at 08:30; Stop 05/26/19 at 15:28; Status DC Sodium Acetate 40 meq/Potassium Acetate 25 meq/ Potassium Phosphate 10 mmol/ Magnesium Sulfate 10 meq/Calcium Gluconate 5 meq/ Multivitamins 10 ml/Chromium/ Copper/Manganese/ Seleni/Zn 1 ml/ Insulin Human Regular 30 unit/ Total Parenteral Nutrition/Amino Acids/Dextrose/ Fat Emulsion Intravenous 2,400 ml @ 100 mls/hr TPN CONT IV Last administered on 05/25/19at 21:34; Start 05/25/19 at 22:00; Stop 05/26/19 at 15:28; Status DC Active Scripts Active No Active Prescriptions or Reported Medications Vitals/I & O Vital Sign - Last 24 Hours 05/25/19 05/25/19 05/25/19 05/25/19 20:00 20:00 20:00 20:06 Temp 99.0 99.0 99.0 99.0 Pulse 86 86 Resp 23 23 B/P (MAP) 137/58 (84) 137/58 Pulse Ox 100 97 O2 Delivery Room Air Room Air Room Air 05/25/19 05/25/19 05/25/19 05/25/19 20:06 21:00 21:00 22:00 Temp 99.0 99.0 99.0 99.0 Pulse 97 97 94 Resp 24 B/P (MAP) 139/64 139/64 (89) 143/60 (87) Pulse Ox 97 95 96 O2 Delivery Room Air Room Air Room Air 05/25/19 05/26/19 05/26/19 05/26/19 23:00 00:00 00:00 01:00 Temp 98.9 98.9 Pulse 80 84 81 Resp B/P (MAP) 115/56 (75) 135/60 (85) 103/49 (67) Pulse Ox 96 96 96 O2 Delivery Room Air Room Air Room Air Room Air 05/26/19 05/26/19 05/26/19 05/26/19 02:00 03:00 04:00 04:00 Temp 99.0 99.0 Pulse 80 76 82 Resp B/P (MAP) 128/61 (83) 108/60 (76) 136/50 (78) Pulse Ox 97 97 97 O2 Delivery Room Air Room Air Room Air Room Air 05/26/19 05/26/19 05/26/19 05/26/19 05:00 06:00 07:00 08:00 Temp 99.5 99.5 Pulse 87 77 97 81 Resp B/P (MAP) 148/66 (93) 150/70 (96) 144/66 (92) 155/75 (101) Pulse Ox 98 98 96 97 O2 Delivery Room Air Room Air Room Air Room Air 05/26/19 05/26/19 05/26/19 05/26/19 08:09 08:19 09:00 10:00 Pulse 88 90 Resp 20 B/P (MAP) 131/58 (82) 154/75 (101) Pulse Ox 97 95 97 O2 Delivery Room Air Room Air Room Air Room Air 05/26/19 05/26/19 05/26/19 05/26/19 11:00 12:00 12:00 12:09 Temp 99.5 99.5 Pulse 94 85 Resp 23 22 B/P (MAP) 133/63 (86) 112/61 (78) Pulse Ox 96 97 97 O2 Delivery Room Air Room Air Room Air Room Air Intake and Output 05/25/19 05/25/19 05/26/19 14:59 22:59 06:59 Intake Total 1444 ml 1313.5 ml 1202 ml Output Total 1200 ml 1295 ml 1290 ml Balance 244 ml 18.5 ml -88 ml JAZMINE COLLINS MD May 26, 2019 19:14
--- NOTE | 2019-05-27 18:22 | DS ---
DATE OF DISCHARGE: 05/26/2019 ADMISSION DIAGNOSES: Perforated viscus with a duodenal ulcer and gastrointestinal bleed. DISCHARGE DIAGNOSIS: Postoperative perforated viscus. DICTATION ENDS HERE. HEATHER WRIGHT DO DR: Mari JOB#: [id number] / [id number]
== END 2019-05-26 14:20 | DRG 853 ==
LOC: ER 16:13 → 1 WEST ICU 19:11 → 4 NORTH 05-11 15:38 → 1 WEST ICU 05-15 15:38 → 4 NORTH 05-16 15:58 → 1 WEST ICU 05-22 19:01
PROVIDERS: ADMIT Family Medicine; ATTEND Family Medicine
PROC: 0DJ04ZZ Inspection of Upper Intestinal Tract, Percutaneous Endoscopic Approach (ICD-10-PCS; 2019-05-08)
PROC: 0DB90ZX Excision of Duodenum, Open Approach, Diagnostic (ICD-10-PCS; 2019-05-08)
PROC: 5A09357 Assistance with Respiratory Ventilation, Less than 24 Consecutive Hours, Continuous Positive Airway Pressure (ICD-10-PCS; 2019-05-08)
PROC: 0DU907Z Supplement Duodenum with Autologous Tissue Substitute, Open Approach (ICD-10-PCS; principal; 2019-05-08 19:30)
PROC: 0B9J8ZZ Drainage of Left Lower Lung Lobe, Via Natural or Artificial Opening Endoscopic (ICD-10-PCS; 2019-05-09)
PROC: 0B9J8ZX Drainage of Left Lower Lung Lobe, Via Natural or Artificial Opening Endoscopic, Diagnostic (ICD-10-PCS; 2019-05-09)
PROC: 02HV33Z Insertion of Infusion Device into Superior Vena Cava, Percutaneous Approach (ICD-10-PCS; 2019-05-14)
PROC: B5181ZA Fluoroscopy of Superior Vena Cava using Low Osmolar Contrast, Guidance (ICD-10-PCS; 2019-05-14)
PROC: B548ZZA Ultrasonography of Superior Vena Cava, Guidance (ICD-10-PCS; 2019-05-14)
PROC: 0W9F30Z Drainage of Abdominal Wall with Drainage Device, Percutaneous Approach (ICD-10-PCS; 2019-05-15)
DX: A41.9 Sepsis, unspecified organism (principal); E43 Unspecified severe protein-calorie malnutrition; K26.6 Chronic or unspecified duodenal ulcer with both hemorrhage and perforation; G93.41 Metabolic encephalopathy; K65.9 Peritonitis, unspecified; J96.00 Acute respiratory failure, unspecified whether with hypoxia or hypercapnia; D61.818 Other pancytopenia; D62 Acute posthemorrhagic anemia; E87.0 Hyperosmolality and hypernatremia; G25.9 Extrapyramidal and movement disorder, unspecified; J44.1 Chronic obstructive pulmonary disease with (acute) exacerbation; J98.11 Atelectasis; R18.8 Other ascites; N17.9 Acute kidney failure, unspecified; E11.22 Type 2 diabetes mellitus with diabetic chronic kidney disease; E11.65 Type 2 diabetes mellitus with hyperglycemia; E66.9 Obesity, unspecified; E78.5 Hyperlipidemia, unspecified; E87.5 Hyperkalemia; F17.210 Nicotine dependence, cigarettes, uncomplicated; I12.9 Hypertensive chronic kidney disease with stage 1 through stage 4 chronic kidney disease, or unspecified chronic kidney disease; M43.16 Spondylolisthesis, lumbar region; M48.061 Spinal stenosis, lumbar region without neurogenic claudication; N18.9 Chronic kidney disease, unspecified; N20.0 Calculus of kidney; R65.20 Severe sepsis without septic shock; Z79.899 Other long term (current) drug therapy; Z96.619 Presence of unspecified artificial shoulder joint; Z86.73 Personal history of transient ischemic attack (TIA), and cerebral infarction without residual deficits; Z87.11 Personal history of peptic ulcer disease; Z87.19 Personal history of other diseases of the digestive system; Z88.1 Allergy status to other antibiotic agents; Z88.2 Allergy status to sulfonamides; F32.9 Major depressive disorder, single episode, unspecified; F41.9 Anxiety disorder, unspecified; M19.90 Unspecified osteoarthritis, unspecified site; Z68.29 Body mass index [BMI] 29.0-29.9, adult; Z88.8 Allergy status to other drugs, medicaments and biological substances
CPT/HCPCS: 36415; 36573; 36600; 49406; 70450; 71045; 71275; 74018; 74174; 74177; 77001; 80048; 80053; 80069; 81001; 82140; 82310; 82550; 82607; 82728; 82805; 82962; 83540; 83550; 83605; 83690; 83735; 84100; 84145; 84300; 84443; 84478; 84484; 85007; 85018; 85025; 85027; 85379; 85384; 85610; 86850; 86900; 86901; 86920; 87071; 87075; 87102; 87116; 88305; 93005; 93306; 93970; 94640; 94660; 94760; 95816; 96365; 96375; 96376; 99152; A7015; C1729; C1751; C1769; C1892; C1894; C9113; C9254; G0238; J0171; J0330; J0610; J0692; J0878; J0881; J1100; J1170; J1200; J1450; J1630; J1644; J1815; J1953; J2001; J2060; J2185; J2248; J2250; J2370; J2405; J2543; J2704; J2710; J2765; J3010; J3475; J3480; J3490; J7030; J7120; J7620; J7626; P9016; P9045; Q9966; Q9967; 97110; 97116; 97530; 97535; 99291-25; G0378

== ENCOUNTER → 2020-03-23 | Day surgery (SDC) | payer MEDICARE ==
[~2020-03-23] MED LIST changes: +ACET650S11 RC; +ASPI300S PR; +ASPI81TA50 PO; +BACI1PAC4 TP; +BENZ-8 PO; +CHLO118L3 TP; +DICL100G4 TP; +HYOS0.1222 PO; +INSU100I13 SQ; +INSU100V6 SQ; +IPRA0.2S5 NEB; +IPRA3AMP29 NEB; +IV RINGERS,LACTATED 1000ML 1,000 ML IV SCH; +LIDO5JEL3 TP; +LIDOCAINE 2% PF 5 ML VIAL. ONE; +LORA0.5T96 PO; +MERO500V24 IV; +METO5TAB55 PO; +METOCLOPRAMIDE 10 MG/2 ML IVP; +ONDA4TAB12 IV; +PANT40TA77 IV; +PHENYLEPHRINE in 0.9% NACL PF 1 MG/10 ML SYRINGE. IV ONE; +PIPE2.255 MC; +PRIM50TA24 PO; +PROP10TA PO; +PROPOFOL 10 MG/ML (20ML) VIAL. IV ONE; +PROTONIX 40 MG IVP; +RING10003 IV; +VENL75CA6 PO; +[UNRECOGNIZED DRUG - OTHER]
[2020-03-23 16:32] VITALS: BP 115/66
--- NOTE | 2020-03-23 20:16 | CONS ---
DATE OF CONSULTATION: 03/23/2020 REASON FOR CONSULTATION: Dysphagia. HISTORY OF PRESENT ILLNESS: A 74-year-old male with past medical history significant for COPD, hypertension, hyperlipidemia, history of strokes, history of Parkinson's disease, diabetes and depression is seen with inability to handle oral secretions in both solids and liquids for the past 3 days with increased difficulties. He had an esophagram which revealed a stricture. He has been seen in the office earlier today and has been to swallow and has approximately a liter of saliva ____ the patient was brought to the hospital for EGD with possible biopsy and dilatation and/or foreign body extraction later this afternoon. He is otherwise without additional complaints presently. PAST MEDICAL HISTORY: COPD, hypertension, hyperlipidemia, Parkinson's disease, diabetes, depression, anxiety. ALLERGIES: SULFA, CIPRO AND CODEINE. MEDICATIONS: As an outpatient; however, per the MAR. PAST SURGICAL HISTORY: Right shoulder replacement, G-tube replacement, perforated duodenal ulcer with gastric oversewn. PHYSICAL EXAMINATION: GENERAL: Reveals a well-nourished, well-developed male who is alert, cooperative, in no acute distress. VITAL SIGNS: Temperature 99.1, pulse 79, respiratory rate 20 and pulse ox of 96%. LUNGS: Reveal coarse breath sounds with prolonged expiratory phase. CARDIOVASCULAR: S1, S2 without S3, S4 or appreciable murmur. ABDOMEN: With a soft abdomen with multiple surgical incisions and G-tube is in place in the left upper quadrant. IMPRESSION AND RECOMMENDATIONS: Dysphagia with a known stricture on esophagram. Differential includes malignancy, Betancourt's, achalasia, eosinophilic esophagitis and/or oropharyngeal disease with his Parkinson's as well as possible previous transient ischemic attack. I therefore recommend upper endoscopy to further assess. If this is unhelpful and does not reveal any obstruction, then further speech pathology evaluation would be pursued. KWAME MENA MD DR: ANUPAM/kaye JOB#: [id number] / [id number]
--- NOTE | 2020-03-29 15:08 | PATHOLOGY ---
[facility] Accession Number: [id number] . 01 Material submitted: . esophagus - EOSPHAGEAL STRICTURE BIOPSY R/O MALIGNANCY . 01 Clinical history: . DYSPHAGIA . 02 Diagnosis: Esophagus "stricture", endoscopic biopsy: - Multiple fragments of tissue demonstrating necrosis, marked acute inflammation, and granulation tissue with rare atypical cells. - Please see comment. . (K:mm; 03/26/2020) [facility] 03/29/2020 1438 Local . 02 Comment: The majority of the biopsy from the esophageal stricture is composed of necrotic and inflammatory tissue. There are atypical cells present, many of which are endothelial in nature, and very rare degenrative epithelial cells are seen within the necrotic debris. If there is a high index of clinical suspicion for an underlying malignancy, further evaluation is recommmended. . The case is see in co-review with Dr. Audrey Arevalo, who concurs with the above diagnosis. . . (K:mml; 03/26/2020) . 02 Electronically signed: . Mony Alcantar MD, Pathologist NPI- [id number] . 01 Gross description: . The specimen is received in formalin, labeled "Jacob, Mega, esophageal stricture BX" and consists of multiple fragments of agustin tissue measuring 1.1 x 0.8 x 0.2 cm in aggregate which are entirely submitted in A1. (SDY; 03/25/2020) SYU/SYU 03/25/2020 1304 Local . 02 Microscopic: . Immunohistochemical Stain Results (block A1): . AE1/3 - Highlights rare atypical cells. . 02 Pathologist provided ICD-10: K20.9 . 02 CPT . 060385 Specimen Comment: A courtesy copy of this report has been sent to [phone] Specimen Comment: [phone] Specimen Comment: Report sent to DR MENA / DR ALLEN Performed at: 01 [facility] [address] [facility] [address], [place] [id number] MD Jon Cobb MD Phone: [phone] Performed at: 02 [facility] [address] [place], [place] [id number] MD Daniel Sarabia MD Phone: [phone]
== END | disposition home or self-care (01) ==
LOC: ENDOS 14:47
PROVIDERS: ATTEND Internal Medicine Gastroenterology
DX: R13.10 Dysphagia, unspecified (principal); K22.2 Esophageal obstruction; K21.0 Gastro-esophageal reflux disease with esophagitis; Z20.828 Contact with and (suspected) exposure to other viral communicable diseases; J44.9 Chronic obstructive pulmonary disease, unspecified; I10 Essential (primary) hypertension; E78.5 Hyperlipidemia, unspecified; E11.9 Type 2 diabetes mellitus without complications; F32.9 Major depressive disorder, single episode, unspecified; F41.9 Anxiety disorder, unspecified; Z96.611 Presence of right artificial shoulder joint; Z98.890 Other specified postprocedural states; Z88.2 Allergy status to sulfonamides; Z88.5 Allergy status to narcotic agent; Z88.8 Allergy status to other drugs, medicaments and biological substances; Z87.891 Personal history of nicotine dependence; Z79.899 Other long term (current) drug therapy; Z79.84 Long term (current) use of oral hypoglycemic drugs
CPT/HCPCS: 43239; 43249; 82962; 87426; 88305; J2370; J2704; U0003; 43250

== ENCOUNTER → 2020-04-12 | Outpatient (CLI) | payer MEDICARE ==
[2020-03-23 16:32] VITALS: BP 115/66
[~2020-04-12] MED LIST changes: -IV RINGERS,LACTATED 1000ML 1,000 ML IV SCH; -LIDOCAINE 2% PF 5 ML VIAL. ONE; -PHENYLEPHRINE in 0.9% NACL PF 1 MG/10 ML SYRINGE. IV ONE; -PROPOFOL 10 MG/ML (20ML) VIAL. IV ONE
== END | disposition home or self-care (01) ==
LOC: LAB 08:39
PROVIDERS: ATTEND Internal Medicine Gastroenterology
DX: Z01.812 Encounter for preprocedural laboratory examination (principal); Z20.828 Contact with and (suspected) exposure to other viral communicable diseases; R13.10 Dysphagia, unspecified
CPT/HCPCS: U0003-CS

== ENCOUNTER → 2020-04-14 | Day surgery (SDC) | payer MEDICARE ==
[~2020-04-14] MED LIST changes: +IV RINGERS,LACTATED 1000ML 1,000 ML IV SCH; +PROPOFOL 10 MG/ML (20ML) VIAL. IV ONE
[2020-04-14 08:28] VITALS: BP 119/71
--- NOTE | 2020-04-16 16:07 | PATHOLOGY ---
[facility] Accession Number: [id number] . 01 Material submitted: . esophagus - MID ESOPHAGUS STRICTURE. Modifiers: mid . 01 Clinical history: . DYSPHAGIA . 02 Diagnosis: Esophageal biopsies, mid esophagus stricture: - Segments of gastric mucosa showing mild chronic inflammation, and segment of acutely inflamed granulation tissue, consistent with gastric heterotopia with ulceration. (JPM:joe; 04/16/2020) S 04/16/2020 1406 Local . 02 Comment: There is no evidence of Betancourt's change, dysplasia, or malignancy. (JPM:joe; 04/16/2020) . 02 Electronically signed: . Daniel Sarabia MD, Pathologist NPI- [id number] . 01 Gross description: . The specimen is received in formalin, labeled "Mega Jacob, mid esophagus stricture". Received are three segments of pale agustin soft tissue ranging in size from 0.2 to 0.3 cm in maximum dimensions. The specimen is submitted entirely in cassette A1. (CAA; 04/15/2020) QAC/QAC 04/15/2020 1147 Local . 02 Pathologist provided ICD-10: K20.90 . 02 CPT . 191130 Specimen Comment: A courtesy copy of this report has been sent to [phone] Specimen Comment: [phone] Specimen Comment: Report sent to / DR ALEJANDRO Performed at: 01 [facility] [address] [facility] [address], [place] [id number] MD Jon Cobb MD Phone: [phone] Performed at: 02 [facility] [address] [place], [place] [id number] MD Daniel Sarabia MD Phone: [phone]
== END | disposition home or self-care (01) ==
LOC: ENDOS 06:24
PROVIDERS: ATTEND Internal Medicine Gastroenterology
DX: K22.2 Esophageal obstruction (principal); E11.9 Type 2 diabetes mellitus without complications; K21.9 Gastro-esophageal reflux disease without esophagitis; F41.9 Anxiety disorder, unspecified; F32.9 Major depressive disorder, single episode, unspecified; E78.5 Hyperlipidemia, unspecified; J44.9 Chronic obstructive pulmonary disease, unspecified; Z88.2 Allergy status to sulfonamides; Z88.5 Allergy status to narcotic agent; Z88.8 Allergy status to other drugs, medicaments and biological substances; Z79.899 Other long term (current) drug therapy; Z87.891 Personal history of nicotine dependence; Z79.84 Long term (current) use of oral hypoglycemic drugs
CPT/HCPCS: 43233; 43239; 82962; 88305; J2704

== ENCOUNTER 2021-09-14 09:35 | Emergency (ER) | payer MEDICARE ==
[~2021-09-14] VITALS: Ht 177.8 cm; Wt 91.2 kg
[~2021-09-14 09:35] MED LIST changes: +CARB-183 PO; -CARB1TAB2 PO; -IV RINGERS,LACTATED 1000ML 1,000 ML IV SCH; +LISI10TA16 PO; -LISI10TA2 PO; -PROPOFOL 10 MG/ML (20ML) VIAL. IV ONE
--- NOTE | 2021-09-14 10:09 | PHYS DOC ---
Past Medical History Past Medical History: Anxiety, Diabetes-Type II, High Cholesterol, Other Additional Past Medical Histor: RUPTURE OF DUODENTAL ULCER, STAGE 2 KIDNEY FAILURE Past Surgical History: Cholecystectomy Additional Past Surgical Histo: J TUBE PLACE, BOWEL RESECTION, R SHOULDER REPLACEMENT Smoking Status: Former Smoker Alcohol Use: None Drug Use: None General Adult EDM: Chief Complaint: GTUBE REPLACEMENT/MALFUNCTION HPI: HPI: Patient is a 75 year old male who presents with concern that his jejunostomy tube may have inadvertently partially come out last night while changing his clothing. He has no pain at the site. He and his are too afraid to flush the tube for fear that it possibly is not working. He reports that when he changed his shirt, part of the end of the tube caught on his shirt, and he thinks that he saw part of the bulb,, but he gently pushed it back into his abd omen. He has had this jejunostomy tube for about 2 years. He is currently the process of having it removed. He is able to eat and drink on his own. He denies abdominal pain, vomiting, fever, shortness of breath, chest pain. He denies any bowel habit changes, urinary symptoms. No other complaints. General surgery services and GI services have followed him here. Review of Systems: Review of Systems: Constitutional: Denies fever or chills. [] HENT: Denies nasal congestion or sore throat. [] Respiratory: Denies cough or shortness of breath. [] Cardiovascular: Denies chest pain or edema. [] GI: Denies abdominal pain, nausea, vomiting, diarrhea or constipation : Denies urinary symptoms Musculoskeletal: Denies back pain or joint pain. [] Integument: Denies rash. [] Neurologic: Denies headache, focal weakness or sensory changes. [] Psychiatric: Denies depression or anxiety. [] Heart Score: C/O Chest Pain: No Risk Factors: Risk Factors: DM, Current or recent (<one month) smoker, HTN, HLP, family history of CAD, obesity. Risk Scores: Score 0 - 3: 2.5% MACE over next 6 weeks - Discharge Home Score 4 - 6: 20.3% MACE over next 6 weeks - Admit for Clinical Observation Score 7 - 10: 72.7% MACE over next 6 weeks - Early Invasive Strategies Allergies: Allergies: Allergies Coded Allergies Type Severity Reaction Last Updated Verified Sulfa (Sulfonamide Antibiotics) Allergy Intermediate 04/14/20 Yes ciprofloxacin Allergy Intermediate rash 04/14/20 Yes codeine Allergy Intermediate Rash 04/14/20 Yes I S O L A T I O N *CONTACT* Allergy Unknown 03/23/20 Yes sulfamethoxazole Adverse Reaction Severe Altered Mental Status 04/14/20 Yes trimethoprim Adverse Reaction Severe Altered Mental Status 04/14/20 Yes Physical Exam: PE: Constitutional: Well developed, well nourished, no acute distress, non-toxic appearance. [] HENT: Normocephalic, atraumatic Eyes: Conjunctive are clear Neck: Normal range of motion, no tenderness, supple, no stridor. [] Cardiovascular:Heart rate regular rhythm, was 2 radial pulses bilaterally Lungs & Thorax: Bilateral breath sounds clear to auscultation [] Abdomen: Abdomen is soft, nondistended, nontender to palpation. Jejunostomy tube site is clean, dry, intact. Jejunostomy tube appears to be in the appropriate position. Normal bowel sounds are noted. No palpable masses organomegaly are noted. Skin: Warm, dry, no erythema, no rash. There is some very minimal skin irritation and redness just around the J-tube site, no warmth, no erythema, no purulent drainage, no bleeding noted. Back: No tenderness, no CVA tenderness. [] Extremities: No tenderness, no cyanosis, no clubbing, ROM intact, no edema. [] Neurologic: Alert and oriented X 3, normal motor function, normal sensory function, no focal deficits noted. [] Psychologic: Affect normal, judgement normal, mood normal. [] Current Patient Data: Vital Signs: Vital Signs Date Time Temp Pulse Resp B/P (MAP) Pulse Ox O2 Delivery O2 Flow Rate FiO2 09/14/21 09:51 97.8 66 18 146/68 (94) 94 Room Air 97.8 EKG: EKG: [] Radiology/Procedures: Radiology/Procedures: IMAGING REPORT Signed PATIENT: MORIAH BARRAGAN ACCOUNT: [id number] : 1945 LOCATION: ER AGE: 75 SEX: M EXAM STATUS: REG ER ORD. PHYSICIAN: REMY BRIGGS DO REASON: J tube placement, OMNIPAQUE 300 50 CC PROCEDURE: KUB Supine abdomen. HISTORY: J-tube placement Supine view was taken of the abdomen. Contrast was injected through the J-tube. There is contrast in small bowel loops. Extravasated contrast is not identified. There is contrast in the colon. There is contrast in the stomach, the contrast may be related to under ingestion of contrast or injections. IMPRESSION: 1. J-tube in the jejunum. 2. Contrast noted in nondilated jejunal loops. Electronically signed by: Darek Baeza MD (09/14/2021 11:23 AM) [facility] DICTATED and SIGNED BY: DAREK BAEZA MD DATE: 09/14/21 0134ORY4 0 Course & Med Decision Making: Course & Med Decision Making Pertinent Labs and Imaging studies reviewed. (See chart for details) Gastrografin x-ray confirms proper placement of the jejunostomy tube. I discussed the findings, differential diagnosis and plan of care with the patient and his . I recommend that he follow-up with his primary care physician, general surgery and GI services for further care and evaluation and discussion of when the jejunostomy tube may be removed. There is no current clinical indication for any further invasive exams, labs or imaging. Return precautions are given. Dragon Disclaimer: Dragon Disclaimer: This electronic medical record was generated, in whole or in part, using a voice recognition dictation system. Departure Departure Impression: Primary Impression: Jejunostomy tube present Disposition: HOME / SELF CARE / HOMELESS Condition: STABLE Referrals: ILANA ALEJANDRO MD (PCP) Patient Instructions: Gastrostomy Tube, Adult Additional Instructions: Your J-tube appears to be in appropriate position. You may continue to use this and flush this as per usual. Return to the ER for severe pain, fever 100.4 or higher, vomiting, if you notice any severe bleeding around the site or for any other concerns. Follow-up as scheduled with your primary care physicians and your surgeons. REMY BRIGGS DO Sep 14, 2021 10:09
[2021-09-14] MEDS ORDERED: CONTRAST GIVEN. MC PRN (11:00)
[2021-09-14] MEDS ORDERED: IOHEXOL 300 MG/ML 50 ML VIAL. PO ONE (11:00)
--- NOTE | 2021-09-14 11:25 | RAD ---
Supine abdomen. HISTORY: J-tube placement Supine view was taken of the abdomen. Contrast was injected through the J-tube. There is contrast in small bowel loops. Extravasated contrast is not identified. There is contrast in the colon. There is contrast in the stomach, the contrast may be related to under ingestion of contrast or injections. IMPRESSION: 1. J-tube in the jejunum. 2. Contrast noted in nondilated jejunal loops. Electronically signed by: Darek Baeza MD (09/14/2021 11:23 AM) [facility]
[2021-09-14 12:11] VITALS: BP 196/86
== END 2021-09-14 12:11 | disposition home or self-care (01) ==
LOC: ER 09:35
DX: Z43.4 Encounter for attention to other artificial openings of digestive tract (principal); E78.00 Pure hypercholesterolemia, unspecified; E11.22 Type 2 diabetes mellitus with diabetic chronic kidney disease; N18.2 Chronic kidney disease, stage 2 (mild); I10 Essential (primary) hypertension; Z87.891 Personal history of nicotine dependence; Z90.49 Acquired absence of other specified parts of digestive tract; Z88.1 Allergy status to other antibiotic agents; Z88.2 Allergy status to sulfonamides; Z88.5 Allergy status to narcotic agent; Z91.041 Radiographic dye allergy status
CPT/HCPCS: 74018; 99283; Q9967

== ENCOUNTER → 2021-09-27 | Outpatient (CLI) | payer MEDICARE ==
[2021-09-14 12:11] VITALS: BP 196/86
--- NOTE | 2021-09-27 10:15 | KCIC ---
EXAM: CT CHEST WITHOUT CONTRAST (LDCT LUNG CANCER SCREENING). HISTORY: Risk factors for pulmonary malignancy. Cigarette smoker. TECHNIQUE: CT of the chest was performed without intravenous contrast using a low-dose lung screening protocol. Findings analysis is based on ACR Lung-RADS v1.1. *One or more of the following individual ized dose reduction techniques were utilized for this examination: 1. Automated exposure control. 2. Adjustment of the mA and/or kV according to patient size. 3. Use of iterative reconstruction technique. COMPARISON: None. FINDINGS: The heart is normal in size. There is coronary artery calcification. There is calcified ath erosclerotic plaque involving the aorta and aortic arch great vessels. There are calcified right giovani r granulomas. No pathologically enlarged mediastinal or hilar lymph node is seen. There is no pneumothorax. There is no pleural effusion. There is mild biapical predominant emphysema. There is a tiny calcified granuloma within the lateral right middle lobe. There is a 3 mm pleural-ba sed nodular opacity within the posterior right lower lobe, possibly due to subsegmental atelectasis. There is a 5 mm nodule within the medial left upper lobe (series 6, image 157) there is linear atelec tasis or scarring within the lingula. There is diastasis of the ventral abdominal wall with protrusion of fat and visceral structures. Ther e is a drainage catheter within the right ventral abdominal wall extending towards the gallbladder fo ssa, partially included on the [id number]. There is no acute or suspicious osseous finding. There are degenerative changes throughout the spine. IMPRESSION: 1. 5 mm left upper lobe and 3 mm right lower lobe pulmonary nodules, the latter which may be due to s ubsegmental atelectasis. Lung RADS category 2: Follow-up with a chest CT in 12 months is recommended. 2. Minimal apical predominant emphysema. 3. Coronary artery calcification. Electronically signed by: Val To MD (09/27/2021 10:13 AM) [id number]
== END ==
LOC: KCIC CT 09:09
PROVIDERS: ATTEND Nurse Practitioner Family
DX: Z12.2 Encounter for screening for malignant neoplasm of respiratory organs (principal); R91.8 Other nonspecific abnormal finding of lung field; I25.10 Atherosclerotic heart disease of native coronary artery without angina pectoris; J43.9 Emphysema, unspecified; J84.10 Pulmonary fibrosis, unspecified; I70.0 Atherosclerosis of aorta; M47.819 Spondylosis without myelopathy or radiculopathy, site unspecified; F17.210 Nicotine dependence, cigarettes, uncomplicated
CPT/HCPCS: 71271